=== PATIENT | male | born 1950 | race Caucasian/White ===

== ENCOUNTER 2016-09-02 16:29 | Inpatient (IN) | payer MEDICARE ==
[2016-09-02] MEDS ORDERED: DILTIAZEM 125 MG in SODIUM CHLORIDE 0.9% 100 ML IV ONE (16:59)
[2016-09-02] MEDS ORDERED: DILTIAZEM 5 MG/ML 5 ML VIAL IVP STA ×2 (16:59→18:38)
--- NOTE | 2016-09-02 17:13 | ED ---
General Adult HPI - General Chief complaint: Chest Pain Stated complaint: CHEST PAIN Time Seen by Provider: 09/02/16 16:59 Source: EMS, RN notes reviewed, old records reviewed Mode of arrival: EMS Limitations: no limitations - History of Present Illness Initial comments: This is a 66-year-old male ER for evaluation of shortness of breath, severe shortness of breath weakness and near syncope patient does have significant medical history of atrial fibrillation, CAD. Patient complains of significant shards of breath no fevers or cough no congestion. No significant chest pain at this time, just feeling weak and near syncopal - Related Data Home Medications Medication Instructions Recorded Confirmed Mometasone Inhalr 220 Mcg/Puff 1 puff INHALATION RT-BID 08/17/16 09/02/16 [Asmanex] Aspirin EC [Ecotrin Low Dose] 81 mg PO DAILY 09/02/16 09/02/16 Metoprolol Tartrate [Lopressor] 25 mg PO BID 09/02/16 09/02/16 Previous Rx's Medication Instructions Recorded Atorvastatin [Lipitor] 80 mg PO HS #30 tab 08/18/16 Clopidogrel [Plavix] 75 mg PO DAILY 30 Days 08/18/16 Nitroglycerin Sl Tabs [Nitrostat] 0.4 mg SUBLINGUAL Q5M PRN #25 tab 08/18/16 Rivaroxaban [Xarelto] 15 mg PO Q48H #15 tab 08/18/16 Allergies Allergy/AdvReac Type Severity Reaction Status Date / Time Penicillins Allergy Swelling Verified 09/02/16 16:40 Review of Systems ROS Statement: Those systems with pertinent positive or pertinent negative responses have been documented in the HPI. ROS Other: All systems not noted in ROS Statement are negative. Past Medical History Past Medical History: Atrial Fibrillation, Coronary Artery Disease (CAD), GERD/ Reflux, Hyperlipidemia, Hypertension, Osteoarthritis (OA), Sleep Apnea/CPAP/ BIPAP Additional Past Medical History / Comment(s): Thoracic aortic aneurysm 4.1 cm being monitored by Dr. Bennett, LION without device, PVCs, R leg phlebitis, past R wrist fx. Last Myocardial Infarction Date:: 08/17/16 History of Any Multi-Drug Resistant Organisms: None Reported Past Surgical History: Appendectomy Additional Past Surgical History / Comment(s): Fracture surgery,right leg vein stripping. Past Anesthesia/Blood Transfusion Reactions: No Reported Reaction Past Psychological History: No Psychological Hx Reported Additional Psychological History / Comment(s): Pt resides with spouse. He is independent. Smoking Status: Former smoker Past Alcohol Use History: Rare Additional Past Alcohol Use History / Comment(s): Pt started smoking as a teen and quit in 2005. He occasionally chews tobacco. Past Drug Use History: None Reported - Past Family History Father Family Medical History: No Reported History (Father at the age of 65 from lung condition.) Additional Family Medical History / Comment(s): in his 80's. Mother Family Medical History: No Reported History, Dementia (Mother diet in her 80's from dementia and old age.) Additional Family Medical History / Comment(s): Mother in her 80's Sister(s) Family Medical History: CVA/TIA (patient had 2 sisters one from CVA.) Daughter(s) Family Medical History: No Reported History (2 daughters no major medical problems.) Son(s) Family Medical History: No Reported History (one son no major medical problems.) General Exam Limitations: no limitations General appearance: alert, anxious, lethargic, in distress Head exam: Present: atraumatic, normocephalic, normal inspection Eye exam: Present: normal appearance, PERRL, EOMI. Absent: scleral icterus, conjunctival injection, periorbital swelling ENT exam: Present: normal exam, mucous membranes moist Neck exam: Present: normal inspection. Absent: tenderness, meningismus, lymphadenopathy Respiratory exam: Present: normal lung sounds bilaterally. Absent: respiratory distress, wheezes, rales, rhonchi, stridor Cardiovascular Exam: Present: tachycardia, irregular rhythm, normal heart sounds. Absent: systolic murmur, diastolic murmur, rubs, gallop, clicks GI/Abdominal exam: Present: soft, normal bowel sounds. Absent: distended, tenderness, guarding, rebound, rigid Extremities exam: Present: normal inspection, full ROM, normal capillary refill. Absent: tenderness, pedal edema, joint swelling, calf tenderness Back exam: Present: normal inspection Neurological exam: Present: alert, oriented X3, CN II-XII intact Psychiatric exam: Present: normal affect, normal mood Skin exam: Present: warm, dry, intact, normal color. Absent: rash Course Vital Signs 09/02/16 09/02/1609/02/17 16:38 17:36 18:31 Temperature 97.8 F Pulse Rate 154 H 123 H 105 H Respiratory 18 18 Rate Blood Pressure 121/71 114/58 O2 Sat by Pulse 93 L 96 Oximetry 09/02/16 09/02/16 09/02/16 19:07 19:22 20:06 Temperature Pulse Rate 105 H 109 H 111 H Respiratory 18 18 16 Rate Blood Pressure 124/82 110/57 127/68 O2 Sat by Pulse 97 98 98 Oximetry 09/02/16 09/02/16 09/02/16 20:28 21:07 22:52 Temperature Pulse Rate 76 62 62 Respiratory 16 16 16 Rate Blood Pressure 93/55 112/68 104/54 O2 Sat by Pulse 98 98 96 Oximetry 09/03/16 09/03/16 09/03/16 01:02 05:29 07:37 Temperature Pulse Rate 65 62 73 Respiratory 18 16 18 Rate Blood Pressure 102/50 111/56 136/64 O2 Sat by Pulse 96 95 97 Oximetry - Reevaluation(s) Reevaluation #1: 09/02/16 17:13 Patient did have good success with Cardizem push, feeling improved Reevaluation #2: 09/02/16 21:14 Patient still remains with chest pain Patient spoken with greater than 15 minutes regarding other symptoms, pending treatment plan, questions answered patient is found to have A. fib with RVR, patient placed on Cardizem with Cardizem drip, metoprolol bolus, patient did return to sinus rhythm rate of 60s. EKG Findings - EKG Comments: EKG Findings:: EKG shows A. fib with RVR rate 134, QRS 90, QTC 480 Medical Decision Making - Medical Decision Making The ER with multiple complaints, chest pain, A. fib with RVR, near syncope. Patient evaluated for EKG with no ST elevations, negative initial troponin. Patient's symptoms are just like prior heart attack and will place patient on anticoagulation. Patient also does have A. fib with RVR which is currently under rate control, patient didn't cardiovert with Cardizem and metoprolol. Patient will be admitted for cardiac evaluation and observation, monitoring of hemodynamic cardiopulmonary status - Lab Data Result diagrams: 09/02/16 16:49 09/02/16 16:49 Lab Results 09/02/16 09/02/16 09/02/16 Range/Units 16:49 16:49 16:49 WBC 7.8 (3.8-10.6) k/uL RBC 4.61 (4.30-5.90) m/uL Hgb 15.1 (13.0-17.5) gm/dL Hct 44.3 (39.0-53.0) % MCV 96.1 (80.0-100.0) fL MCH 32.8 (25.0-35.0) pg MCHC 34.1 (31.0-37.0) g/dL RDW 13.5 (11.5-15.5) % Plt Count 203 (150-450) k/uL Neutrophils % 60 % Lymphocytes % 26 % Monocytes % 6 % Eosinophils % 3 % Basophils % 1 % Neutrophils # 4.7 (1.3-7.7) k/uL Lymphocytes # 2.0 (1.0-4.8) k/uL Monocytes # 0.5 (0-1.0) k/uL Eosinophils # 0.3 (0-0.7) k/uL Basophils # 0.0 (0-0.2) k/uL PT (9.0-12.0) sec INR (<1.1) APTT (22.0-30.0) sec Sodium 144 (137-145) mmol/L Potassium 4.1 (3.5-5.1) mmol/L Chloride 108 H (98-107) mmol/L Carbon Dioxide 25 (22-30) mmol/L Anion Gap 11 mmol/L BUN 15 (9-20) mg/dL Creatinine 0.91 (0.66-1.25) mg/dL Est GFR (MDRD) Af Amer >60 (>60 ml/min/1.73 sqM) Est GFR (MDRD) Non-Af >60 (>60 ml/min/1.73 sqM) Glucose 130 H (74-99) mg/dL Calcium 8.8 (8.4-10.2) mg/dL Phosphorus 3.1 (2.5-4.5) mg/dL Magnesium 1.6 (1.6-2.3) mg/dL Total Bilirubin 1.1 (0.2-1.3) mg/dL AST 21 (17-59) U/L ALT 35 (21-72) U/L Alkaline Phosphatase 100 (38-126) U/L Total Creatine Kinase 75 (55-170) U/L CK-MB (CK-2) 0.9 (0.0-2.4) ng/mL CK-MB (CK-2) Rel Index 1.2 Troponin I <0.012 (0.000-0.034) ng/mL Total Protein 6.1 L (6.3-8.2) g/dL Albumin 3.8 (3.5-5.0) g/dL 09/02/16 Range/Units 16:49 WBC (3.8-10.6) k/uL RBC (4.30-5.90) m/uL Hgb (13.0-17.5) gm/dL Hct (39.0-53.0) % MCV (80.0-100.0) fL MCH (25.0-35.0) pg MCHC (31.0-37.0) g/dL RDW (11.5-15.5) % Plt Count (150-450) k/uL Neutrophils % % Lymphocytes % % Monocytes % % Eosinophils % % Basophils % % Neutrophils # (1.3-7.7) k/uL Lymphocytes # (1.0-4.8) k/uL Monocytes # (0-1.0) k/uL Eosinophils # (0-0.7) k/uL Basophils # (0-0.2) k/uL PT 11.3 (9.0-12.0) sec INR 1.1 (<1.1) APTT 24.5 (22.0-30.0) sec Sodium (137-145) mmol/L Potassium (3.5-5.1) mmol/L Chloride (98-107) mmol/L Carbon Dioxide (22-30) mmol/L Anion Gap mmol/L BUN (9-20) mg/dL Creatinine (0.66-1.25) mg/dL Est GFR (MDRD) Af Amer (>60 ml/min/1.73 sqM) Est GFR (MDRD) Non-Af (>60 ml/min/1.73 sqM) Glucose (74-99) mg/dL Calcium (8.4-10.2) mg/dL Phosphorus (2.5-4.5) mg/dL Magnesium (1.6-2.3) mg/dL Total Bilirubin (0.2-1.3) mg/dL AST (17-59) U/L ALT (21-72) U/L Alkaline Phosphatase (38-126) U/L Total Creatine Kinase (55-170) U/L CK-MB (CK-2) (0.0-2.4) ng/mL CK-MB (CK-2) Rel Index Troponin I (0.000-0.034) ng/mL Total Protein (6.3-8.2) g/dL Albumin (3.5-5.0) g/dL - Radiology Data Radiology results: report reviewed (Chest x-ray 2 views negative for acute disease), image reviewed Critical Care Time Critical Care Time: Yes Total Critical Care Time: 65 Disposition Clinical Impression: Atrial fibrillation with RVR, Chest pain Disposition: ADMITTED IP TO THIS [facility] Condition: Good
[2016-09-02 17:28] LABS: Basophils % (A) 1 %; CH 33.5; Eosinophils # (A) 0.3 k/uL (0-0.7); Eosinophils % (A) 3 %; HCT 44.3 % (39.0-53.0); HDW 2.98; HGB 15.1 gm/dL (13.0-17.5); Luc # (Auto) 0.33; Luc % (Auto) 4; Lymphocytes % (A) 26 %; MCH 32.8 pg (25.0-35.0); MCHC 34.1 g/dL (31.0-37.0); MCV 96.1 fL (80.0-100.0); Mean Platelet Volume 7.2; Monocytes # (A) 0.5 k/uL (0-1.0); Monocytes % (A) 6 %; Neutrophils # (A) 4.7 k/uL (1.3-7.7); Neutrophils % (A) 60 %; RBC 4.61 m/uL (4.30-5.90); RDW 13.5 % (11.5-15.5); WBC 7.8 k/uL (3.8-10.6); WBC (Perox) 7.69
[2016-09-02 17:39] LABS: ALT 35 U/L (21-72); AST 21 U/L (17-59); Alkaline Phosphatase 100 U/L (38-126); Anion Gap 11 mmol/L; Blood Urea Nitrogen 15 mg/dL (9-20); Calcium 8.8 mg/dL (8.4-10.2); Carbon Dioxide 25 mmol/L (22-30); Chloride 108 mmol/L (98-107); Glucose 130 mg/dL (74-99); Magnesium 1.6 mg/dL (1.6-2.3); Non-African American GFR(MDRD) >60 (>60 ml/min/1.73 sqM); Phosphorous 3.1 mg/dL (2.5-4.5); Potassium 4.1 mmol/L (3.5-5.1); Sodium 144 mmol/L (137-145); Total Bilirubin 1.1 mg/dL (0.2-1.3); Total Protein 6.1 g/dL (6.3-8.2)
[2016-09-02 17:47] LABS: Creatine Kinase 75 U/L (55-170)
[2016-09-02 17:49] LABS: INR 1.1 (<1.1); Partial Thromboplastin Time 24.5 sec (22.0-30.0); Prothrombin Time 11.3 sec (9.0-12.0)
--- NOTE | 2016-09-02 17:54 | XR ---
EXAMINATION TYPE: XR chest 1V portable DATE OF EXAM: 09/02/2016 5:40 PM COMPARISON: 02/08/2011 HISTORY: Chest pain TECHNIQUE: Single frontal view of the chest is obtained. FINDINGS: There is no heart failure nor confluent pneumonic infiltrate. There are no hilar masses. C ostophrenic angles are clear. There are chest leads. Heart size is normal. IMPRESSION: No active cardiopulmonary disease. No change.
[2016-09-02 18:01] LABS: Creatine Kinase MB 0.9 ng/mL (0.0-2.4); Troponin I <0.012 ng/mL (0.000-0.034)
[2016-09-02] MEDS ORDERED: METOPROLOL TARTRATE 5 MG/5 ML VIAL IVP STA (19:23)
[2016-09-02] MEDS ORDERED: NITROGLYCERIN SL TABS 0.4 MG TAB SUBLINGUAL PRN (20:19)
[2016-09-03 00:10] LABS: Troponin I 0.056 ng/mL (0.000-0.034)
[2016-09-03 05:39] LABS: Cholesterol 93 mg/dL (<200); HDL Cholesterol 35 mg/dL (40-60); Triglycerides 73 mg/dL (<150)
[2016-09-03 06:10] LABS: Creatine Kinase MB 0.8 ng/mL (0.0-2.4)
[2016-09-03 06:15] LABS: Troponin I 0.049 ng/mL (0.000-0.034)
[2016-09-03] MEDS ORDERED: ASPIRIN 325 MG TAB PO SCH (09:00)
[2016-09-03] MEDS ORDERED: NITROGLYCERIN SL TABS 0.4 MG TAB SUBLINGUAL PRN ×2 (09:16→14:31)
--- NOTE | 2016-09-03 11:39 | ECHOF ---
Referral Reason:LVF MEASUREMENTS -------- HEIGHT: 182.9 cm WEIGHT: 127.0 kg BP: 140/50 RVIDd: 2.8 cm (< 3.3) IVSd: 1.5 cm (0.6 - 1.1) LVIDd: 5.0 cm (3.9 - 5.3) LVPWd: 1.4 cm (0.6 - 1.1) IVSs: 1.5 cm LVIDs: 3.9 cm LVPWs: 1.4 cm LAESV Index (A-L): 24.62 ml/m Ao Diam: 3.8 cm (2.0 - 3.7) AV Cusp: 2.3 cm (1.5 - 2.6) LA Diam: 3.9 cm (2.7 - 3.8) MV EXCURSION: 17.722 mm (> 18.000) MV EF SLOPE: 87 mm/s (70 - 150) EPSS: 0.8 cm MV E Jerry: 0.72 m/s MV DecT: 152 ms MV A Jerry: 0.49 m/s MV E/A Ratio: 1.48 RAP: 5.00 mmHg RVSP: 21.86 mmHg FINDINGS -------- Sinus rhythm. This was a technically adequate study. Morbid Obesity There is moderate concentric left ventricular hypertrophy. Overall left ventricular systolic function is low-normal with, an EF between 50 - 55 %. Basal inferior LV wall motion is hypokinetic. The right ventricle is normal in size. Normal LA size by volume 22+/-6 ml/m2. The right atrial size is normal. There is mild aortic valve sclerosis. There is no evidence of aortic regurgitation. Mild mitral annular calcification present. Mild mitral regurgitation is present. Mild tricuspid regurgitation present. There is no evidence of pulmonary hypertension. The right ventricular systolic pressure, as measured by Doppler, is 21.86mmHg. There is no pulmonic regurgitation present. The aortic root size is normal. Echo free space may represent effusion or a pericardial fat pad. CONCLUSIONS -------- 1. There is moderate concentric left ventricular hypertrophy. 2. There is no pulmonic regurgitation present. 3. The aortic root size is normal. 4. Echo free space may represent effusion or a pericardial fat pad. 5. Overall left ventricular systolic function is low-normal with, an EF between 50 - 55 %. 6. Basal inferior LV wall motion is hypokinetic. 7. There is mild aortic valve sclerosis. 8. Mild mitral annular calcification present. 9. Mild mitral regurgitation is present. 10. Mild tricuspid regurgitation present. 11. There is no evidence of pulmonary hypertension. 12. The right ventricular systolic pressure, as measured by Doppler, is 21.86mmHg. [employer]: Melanie Layne RDCS
--- NOTE | 2016-09-03 12:29 | P.CRDCN ---
History of Present Illness Consult date: 09/03/16 Chief complaint: Recurrent chest discomfort History of present illness: This is a pleasant 66-year-old gentleman who sees Dr. Moss as an outpatient with a past medical history significant for coronary artery disease who underwent recently stenting of the RCA and at that point he was found to have severe disease involving the mid left circumflex, hypertension, and dyslipidemia , as well as paroxysmal atrial fibrillation, presented to the hospital complaining of chest discomfort. In July 2016 he was admitted to [facility] with chest discomfort and was diagnosed with acute non-ST elevation myocardial infarction. He was brought to [facility] and underwent a heart catheterization and was found to have critical disease involving the mid RCA which was opened and stented but the case was complicated by dissection involving the ostial RCA which was also stented with a final good angiographic results. At the same time he was found to have severe disease involving the mid left circumflex. He was in his usual state of health until earlier today when he was sitting on the kitchen table and started experiencing chest discomfort, in the mid of the chest, with radiation to the jaw and to the neck. The discomfort improved after 3 nitroglycerin sublingual. The EKG showed sinus rhythm without any significant ST or T-wave abnormalities but the patient went into an A. fib in the beginning and then he was converted into normal sinus mechanism. The cardiac enzymes came in to be slightly abnormal. I recommended proceeding with a heart catheterization and I will speak with Dr. Moss regarding that. Past Medical History Past Medical History: Atrial Fibrillation, Coronary Artery Disease (CAD), GERD/ Reflux, Hyperlipidemia, Hypertension, Osteoarthritis (OA), Sleep Apnea/CPAP/ BIPAP Additional Past Medical History / Comment(s): Thoracic aortic aneurysm 4.1 cm being monitored by Dr. Bennett, LION without device, PVCs, R leg phlebitis, past R wrist fx. Last Myocardial Infarction Date:: 08/17/16 History of Any Multi-Drug Resistant Organisms: None Reported Past Surgical History: Appendectomy Additional Past Surgical History / Comment(s): Fracture surgery,right leg vein stripping. Past Anesthesia/Blood Transfusion Reactions: No Reported Reaction Date of Last Stent Placement:: 08/17/16 Past Psychological History: No Psychological Hx Reported Additional Psychological History / Comment(s): Pt resides with spouse. He is independent. Smoking Status: Former smoker Past Alcohol Use History: Rare Additional Past Alcohol Use History / Comment(s): Pt started smoking as a teen and quit in 2005. He occasionally chews tobacco. Past Drug Use History: None Reported - Past Family History Father Family Medical History: No Reported History (Father at the age of 65 from lung condition.) Additional Family Medical History / Comment(s): in his 80's. Mother Family Medical History: No Reported History, Dementia (Mother diet in her 80's from dementia and old age.) Additional Family Medical History / Comment(s): Mother in her 80's Sister(s) Family Medical History: CVA/TIA (patient had 2 sisters one from CVA.) Daughter(s) Family Medical History: No Reported History (2 daughters no major medical problems.) Son(s) Family Medical History: No Reported History (one son no major medical problems.) Medications and Allergies Home Medications Medication Instructions Recorded Confirmed Type Mometasone Inhalr 220 Mcg/Puff 1 puff INHALATION RT-BID 08/17/16 09/02/16 History [Asmanex] Aspirin EC [Ecotrin Low Dose] 81 mg PO DAILY 09/02/16 09/02/16 History Metoprolol Tartrate [Lopressor] 25 mg PO BID 09/02/16 09/02/16 History Allergies Allergy/AdvReac Type Severity Reaction Status Date / Time Penicillins Allergy Swelling Verified 09/02/16 16:40 Physical Exam Vitals: Vital Signs Pulse Resp BP Pulse Ox 09/03/16 07:37 73 18 136/64 97 09/03/16 05:29 62 16 111/56 95 09/03/16 01:02 65 18 102/50 96 09/02/16 22:52 62 16 104/54 96 09/02/16 21:07 62 16 112/68 98 09/02/16 20:28 76 16 93/55 98 Intake and Output 09/02/16 09/03/16 09/03/16 22:59 06:59 14:59 Intake Total 37.042 Balance 37.042 Intake: Intake, IV Titration 37.042 Amount Diltiazem 125 mg In 37.042 Sodium Chloride 0.9% 100 ml @ 5 MG/HR 5 mls/hr IV .Q24H ONE Rx#:[id number] - Constitutional General appearance: no acute distress - Respiratory Respiratory: bilateral: CTA - Cardiovascular Rhythm: regular Heart sounds: normal: S1, S2 Results 09/02/16 16:49 09/02/16 16:49 Cardiac Enzymes 09/02/16 09/03/16 Range/Units 23:15 05:20 CK-MB (CK-2) 1.0 0.8 (0.0-2.4) ng/mL Troponin I 0.056 H* 0.049 H* (0.000-0.034) ng/mL Lipids 09/03/16 Range/Units 05:20 Triglycerides 73 (<150) mg/dL Cholesterol 93 (<200) mg/dL HDL Cholesterol 35 L (40-60) mg/dL Current Medications Generic Name Dose Route Start Last Admin Trade Name Freq PRN Reason Stop Dose Admin Aspirin 81 mg 09/04/16 09:[address] [facility] Atorvastatin Calcium 80 mg 09/03/16 21:[address] [facility] Budesonide 1 mg 09/03/16 20:00 Pulmicort INHALATION RT-BID [facility] Clopidogrel Bisulfate 75 mg 09/04/16 09:[address] [facility] Diltiazem HCl 125 mg/ Sodium 125 mls @ 5 mls/hr 09/02/16 16:59 09/02/16 21:07 Chloride IV 09/03/16 16:58 0 mg/hr .Q24H ONE 0 mls/hr 5 MG/HR Infusion Metoprolol Tartrate 25 mg 09/03/16 21:[address] [facility] Nitroglycerin 0.4 mg 09/03/16 09:16 Nitrostat SUBLINGUAL Q5M PRN Chest Pain Rivaroxaban 15 mg 09/03/16 17:[address] [facility] Intake and Output 09/02/16 09/03/16 09/03/16 22:59 06:59 14:59 Intake Total 37.042 Balance 37.042 Intake: Intake, IV Titration 37.042 Amount Diltiazem 125 mg In 37.042 Sodium Chloride 0.9% 100 ml @ 5 MG/HR 5 mls/hr IV .Q24H ONE Rx#:[id number] Assessment and Plan Plan: Assessment #1 acute non-STEMI #2 known CAD as described above #3 paroxysmal A. fib Plan #1 I recommended proceeding with heart catheterization #2 I would increase the dose of metoprolol for better heart rate control #3 follow-up with the patient
--- NOTE | 2016-09-03 13:02 | P.HPIM ---
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 He recently presented to [facility] with increased chest pain and found to have elevated troponin and diagnosed with a non-ST elevated myocardial infarction and atrial fibrillation with RVR. Patient was transferred to [facility] emergency center where he underwent heart catheterization finding totally occluded RCA and significant disease in the left circumflex. He had a stent placement in the RCA and plan to return later for left circumflex. Patient was discharged home and he has been doing fine until yesterday when he developed chest pain with pain in his jaw and numbness in his jaw. He also had lightheadedness and dizziness. He states onset was when he was getting Mrs. Winston chicken soup. He denies any nausea or vomiting. He took 3 nitroglycerin sublingually with improvement. He came into [facility] emergency center for evaluation. Chest x- ray showed no acute process. EKG was atrial fibrillation and subsequently converted to normal sinus rhythm. Troponins were 0.012, 0.056, 0.049. Triglycerides 73, cholesterol 93, LDL 43, HDL 35. Repeat echocardiogram reveals moderate concentric left ventricular hypertrophy, EF 50-55%, mild mitral regurgitation, mild tricuspid regurgitation. Patient is to be admitted to the selective care unit. Plan is for heart catheterization, repeat echocardiogram. Review of Systems All systems: negative Constitutional: Denies chills, Denies fever Eyes: denies blurred vision, denies pain Ears, nose, mouth and throat: Reports vertigo, Denies headache, Denies sore throat Cardiovascular: Reports chest pain, Reports lightheadedness, Denies shortness of breath Respiratory: Denies cough, Denies cough with sputum, Denies excessive sputum, Denies hemoptysis Gastrointestinal: Denies abdominal pain, Denies diarrhea, Denies nausea, Denies vomiting Musculoskeletal: Denies myalgias Integumentary: Denies pruritus, Denies rash Neurological: Denies numbness, Denies weakness Psychiatric: Denies anxiety, Denies depression Endocrine: Denies fatigue, Denies weight change Past Medical History Past Medical History: Atrial Fibrillation, Coronary Artery Disease (CAD), GERD/ Reflux, Hyperlipidemia, Hypertension, Osteoarthritis (OA), Sleep Apnea/CPAP/ BIPAP Additional Past Medical History / Comment(s): Thoracic aortic aneurysm 4.1 cm being monitored by Dr. Bennett, LION without device, PVCs, R leg phlebitis, past R wrist fx. Last Myocardial Infarction Date:: 08/17/16 History of Any Multi-Drug Resistant Organisms: None Reported Past Surgical History: Appendectomy Additional Past Surgical History / Comment(s): Fracture surgery,right leg vein stripping. Past Anesthesia/Blood Transfusion Reactions: No Reported Reaction Past Psychological History: No Psychological Hx Reported Additional Psychological History / Comment(s): Pt resides with spouse. He is independent. Smoking Status: Former smoker Past Alcohol Use History: Rare Additional Past Alcohol Use History / Comment(s): Pt started smoking as a teen and quit in 2005. He occasionally chews tobacco. Past Drug Use History: None Reported - Past Family History Father Family Medical History: No Reported History (Father at the age of 65 from lung condition.) Additional Family Medical History / Comment(s): in his 80's. Mother Family Medical History: No Reported History, Dementia (Mother diet in her 80's from dementia and old age.) Additional Family Medical History / Comment(s): Mother in her 80's Sister(s) Family Medical History: CVA/TIA (patient had 2 sisters one from CVA.) Daughter(s) Family Medical History: No Reported History (2 daughters no major medical problems.) Son(s) Family Medical History: No Reported History (one son no major medical problems.) Medications and Allergies Home Medications Medication Instructions Recorded Confirmed Type Mometasone Inhalr 220 Mcg/Puff 1 puff INHALATION RT-BID 08/17/16 09/02/16 History [Asmanex] Aspirin EC [Ecotrin Low Dose] 81 mg PO DAILY 09/02/16 09/02/16 History Metoprolol Tartrate [Lopressor] 25 mg PO BID 09/02/16 09/02/16 History Allergies Allergy/AdvReac Type Severity Reaction Status Date / Time Penicillins Allergy Swelling Verified 09/02/16 16:40 Physical Exam Vitals: Vital Signs Pulse Resp BP Pulse Ox 09/03/16 07:37 73 18 136/64 97 09/03/16 05:29 62 16 111/56 95 09/03/16 01:02 65 18 102/50 96 09/02/16 22:52 62 16 104/54 96 09/02/16 21:07 62 16 112/68 98 09/02/16 20:28 76 16 93/55 98 Intake and Output 09/02/16 09/03/16 09/03/16 22:59 06:59 14:59 Intake Total 37.042 Balance 37.042 Intake: Intake, IV Titration 37.042 Amount Diltiazem 125 mg In 37.042 Sodium Chloride 0.9% 100 ml @ 5 MG/HR 5 mls/hr IV .Q24H ONE Rx#:[id number] General appearance: no acute distress, obese - EENT Eyes: anicteric sclerae, PERRLA, no ptosis, no scleral icterus, normal apperance ENT: hearing grossly normal, normal oropharynx, no thrush, no tonsillar exudates Ears: bilateral: normal - Neck Neck: no lymphadenopathy, normal ROM, no rigidity, no stridor, no thyromegaly Carotids: bilateral: upstroke normal Thyroid: bilateral: normal size - Respiratory Respiratory: bilateral: diminished, negative: dullness, rales, rhonchi, wheezing , prolonged expiration, prolonged inspiration - Cardiovascular Rhythm: irregularly irregular Heart sounds: normal: S1, S2 Abnormal Heart Sounds: systolic murmur - Gastrointestinal General gastrointestinal: normal bowel sounds, soft, no splenomegaly, no tenderness, no umbilical hernia, no ventral hernia - Integumentary Integumentary: normal, normal turgor - Neurologic Neurologic: CNII-XII intact - Musculoskeletal Musculoskeletal: generalized weakness - Psychiatric Psychiatric: A&O x's 3, appropriate affect, intact judgment & insight Results CBC & Chem 7: 09/02/16 16:49 09/05/16 05:48 Labs: Abnormal Lab Results - Last 24 Hours (Table) 09/02/16 09/03/16 09/03/16 Range/Units 23:15 05:20 05:20 Troponin I 0.056 H* 0.049 H* (0.000-0.034) ng/mL HDL Cholesterol 35 L (40-60) mg/dL Thrombosis Risk Factor Assmnt - DVT/VTE Prophylaxis DVT/VTE Prophylaxis: Pharmacologic Prophylaxis ordered Assessment and Plan Plan: 1. Acute non-ST elevation CT post left heart catheterization and PCI of the RCA recently done in July. Continue aspirin 81 mg orally once every day, Plavix 75 mg orally once every day, metoprolol 50 mg orally twice every day ( increased), Lipitor 80 mg orally once every day. Echocardiogram and repeat heart catheterization. 2. Paroxysmal atrial fibrillation presenting with rapid ventricular response. Off Cardizem drip. Continue patient on metoprolol at increased dose of 50 mg orally twice every day, patient has been on Xarelto. 3. Hypertension and hypertensive cardiovascular disease. Continue patient on metoprolol 25 mg orally twice every day. 4. Hyperlipidemia. Low-cholesterol diet will continue Lipitor 80 mg orally once every day. 5. Obesity with LION. will continue with CPAP. 6. Abdominal Aortic Aneurysm.under surveillance watch by . 7. Tobacco use and dependence in the form of chewing tobacco.abstinence from nicotine is in order. 8. DVT prophylaxis.on Xarelto. 9. GI prophylaxis .will continue with protonix 40 mg orally once a day. 10. Admit as inpatient.estimated length of stay 2 midnights. 11. Full code. Impression and plan of care have been directed as dictated by the signing physician. Joy Baxter nurse practitioner acting as scribe for signing physician. Cc: Dr. Laron Holland Time with Patient: Greater than 30
[2016-09-03] MEDS ORDERED: ALPRAZolam 0.5 MG TAB PO PRN (14:31)
[2016-09-03] MEDS ORDERED: SODIUM CHLORIDE 0.9% 1,000 ML in EMPTY BAG 1 BAG IV ONE (14:31)
[2016-09-03] MEDS ORDERED: ALPRAZolam 0.25 MG TAB PO PRN (14:31)
[2016-09-03] MEDS ORDERED: ASPIRIN 325 MG TAB PO STA (14:31)
[2016-09-03] MEDS ORDERED: ATORVASTATIN 80 MG TAB PO STA (14:31)
[2016-09-03] MEDS ORDERED: RIVAROXABAN 15 MG TAB PO SCH (17:30)
[2016-09-03] MEDS: METOPROLOL TARTRATE 50 MG TAB PO SCH (20:12)
[2016-09-03] MEDS: BUDESONIDE 1 MG/2 ML NEBU INHALATION SCH (20:57)
[2016-09-03] MEDS ORDERED: METOPROLOL TARTRATE 25 MG TAB PO SCH (21:00)
[2016-09-04] MEDS: METOPROLOL TARTRATE 50 MG TAB PO SCH ×2 (06:20→20:31)
[2016-09-04] MEDS: ASPIRIN 81 MG CHEW PO SCH (06:20)
[2016-09-04] MEDS: CLOPIDOGREL 75 MG TAB PO SCH (06:20)
[2016-09-04] MEDS ORDERED: IV FLUID CONTINUATION 500 ML IV ONE (06:55)
[2016-09-04] MEDS ORDERED: LIDOCAINE 2% INJ 20 MG/ML (20 ML MDV) ONE (07:09)
[2016-09-04] MEDS ORDERED: diphenhydrAMINE 50 MG/ML 1 ML VIAL IVP ONE (07:10)
[2016-09-04] MEDS ORDERED: MIDAZOLAM 2 MG/2 ML VIAL ONE (07:10)
[2016-09-04] MEDS ORDERED: diphenhydrAMINE 50 MG/ML 1 ML VIAL ONE (07:10)
[2016-09-04] MEDS ORDERED: MIDAZOLAM 2 MG/2 ML VIAL IV ONE (07:12)
[2016-09-04] MEDS ORDERED: LIDOCAINE 2% INJ 20 MG/ML SQ ONE (07:18)
[2016-09-04] MEDS ORDERED: fentaNYL (PF) 50 MCG/ML 2 ML AMP IV ONE (07:18)
[2016-09-04] MEDS ORDERED: fentaNYL (PF) 50 MCG/ML 2 ML AMP ONE (07:20)
[2016-09-04] MEDS ORDERED: BIVALIRUDIN BOLUS 250 MG/50 ML IV ONE (08:11)
[2016-09-04] MEDS ORDERED: BIVALIRUDIN 250 MG in SODIUM CHLORIDE 0.9% 50 ML IV ONE (08:12)
[2016-09-04] MEDS ORDERED: CLOPIDOGREL 75 MG TAB ONE (08:17)
[2016-09-04] MEDS ORDERED: CLOPIDOGREL 75 MG TAB PO ONE (08:25)
[2016-09-04] MEDS ORDERED: RX INFO: IV CONTRAST WAS GIVEN 1 EACH MISC MISCELLANE PRN (08:26)
[2016-09-04] MEDS ORDERED: NITROGLYCERIN SL TABS 0.4 MG TAB SUBLINGUAL PRN (08:26)
[2016-09-04] MEDS ORDERED: MAG HYDROX/AL HYDROX/SIMETH 30 ML CUP PO PRN (08:26)
[2016-09-04] MEDS ORDERED: ZOLPIDEM 5 MG TAB PO PRN (08:26)
[2016-09-04] MEDS ORDERED: SODIUM CHLORIDE 0.9% 1,000 ML IV SCH (08:30)
--- NOTE | 2016-09-04 08:30 | CC ---
DATE OF SERVICE: INDICATION: Non-ST segment elevation myocardial infarction. Laron is a 66-year-old gentleman who was recently admitted to hospital with non-ST segment elevation KS, underwent cardiac catheterization and complex angioplasty of right coronary artery. He came to [facility] yesterday complaining of precordial chest pain and had mild troponin elevation. Due to this, patient was advised to undergo cardiac catheterization. He had been explained of risks, benefits, and alternatives, understood and accepted. PROCEDURE NOTE: After obtaining informed consent, left heart catheterization and coronary angiogram are performed via the right femoral artery using standard Rita catheters. Patient tolerated the procedure well without any obvious immediate complications. FINDINGS: 1. HEMODYNAMICS: Left ventricular end-diastolic pressure is 14 to 16 mm. There is no significant gradient across the aortic valve. 2. LEFT VENTRICULOGRAM: Left ventriculogram was not performed. 3. ANGIOGRAPHIC DATA: Left main coronary artery: Left main coronary artery appears calcified but is free of significant stenosis. It divides into left anterior descending coronary artery and circumflex coronary artery. LAD shows mild nonobstructive coronary artery disease. Circumflex coronary artery shows a 70% stenosis in its midportion. The right coronary artery appears patent in the previously stented segment in the proximal part. The PLV branch has mild to moderate plaque, which appears unchanged compared to the previous cardiac cath. IMPRESSION: Patent stent within the right coronary artery, 70% stenosis involving circumflex coronary artery. PLAN: Patient will undergo angioplasty of the circumflex coronary artery by Dr. Patel.
[2016-09-04] MEDS ORDERED: IOHEXOL 350 MG/ML 100 ML BOTTLE INJ ONE (08:33)
--- NOTE | 2016-09-04 08:52 | PTCA ---
DATE OF SERVICE: 09/04/2016 PERFORMING PHYSICIAN: Harry Patel MD, Aircraft Maintenance Technician. PROCEDURE PERFORMED: Successful stenting of the mid left circumflex using 2.75 x 15 mm vision BMS with good angiographic results. INDICATION: This is a pleasant 66-year-old gentleman who is known to have CAD and prior LAD stenting who presented to the hospital complaining of chest discomfort consistent with angina. He underwent a heart catheterization and stenting of the RCA recently and was found to have severe disease involving the left circumflex. The initial plan was to bring him back and do the left circumflex stenting but he presented to the hospital with chest discomfort. APPROACH: Right common femoral artery. COMPLICATION: None. LEVEL OF SEDATION: Moderate. PROCEDURE DESCRIPTION: Please refer to diagnostic heart catheterization was performed by Dr. Moss earlier today. Anticoagulation was initiated using Angiomax. Subsequently, I took an XB35 guide and the left main was engaged. A whisper wire was used to wire the left circumflex. Subsequently, I did direct stenting on the lesion of the left circumflex using 2.75 x 15 mm Vision BMS where the stent was positioned under fluoroscopy guidance and deployed under its nominal pressure which was 10 atmospheres for 30 seconds. The following angiogram showed a good angiographic result without perforation and without dissection with excellent flow. The procedure was completed without any complication. CONCLUSION: Successful stenting of the mid left circumflex with reduction of stenosis from 70% to 0. POSTPROCEDURE MANAGEMENT: 1. Dual antiplatelet therapy. 2. Risk factor modification. 3. Follow up with the patient.
[2016-09-04] MEDS: BUDESONIDE 1 MG/2 ML NEBU INHALATION SCH ×2 (11:00→20:27)
--- NOTE | 2016-09-04 14:08 | P.PN ---
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 He recently presented to [facility] with increased chest pain and found to have elevated troponin and diagnosed with a non-ST elevated myocardial infarction and atrial fibrillation with RVR. Patient was transferred to [facility] emergency center where he underwent heart catheterization finding totally occluded RCA and significant disease in the left circumflex. He had a stent placement in the RCA and plan to return later for left circumflex. Patient was discharged home and he has been doing fine until yesterday when he developed chest pain with pain in his jaw and numbness in his jaw. He also had lightheadedness and dizziness. He states onset was when he was getting Mrs. Winston chicken soup. He denies any nausea or vomiting. He took 3 nitroglycerin sublingually with improvement. He came into [facility] emergency center for evaluation. Chest x- ray showed no acute process. EKG was atrial fibrillation and subsequently converted to normal sinus rhythm. Troponins were 0.012, 0.056, 0.049. Triglycerides 73, cholesterol 93, LDL 43, HDL 35. Repeat echocardiogram reveals moderate concentric left ventricular hypertrophy, EF 50-55%, mild mitral regurgitation, mild tricuspid regurgitation. Patient is to be admitted to the selective care unit. Plan is for heart catheterization, repeat echocardiogram. 09/04: Patient underwent heart catheterization that revealed patent stent in the right coronary artery, 70% stenosis of the circumflex coronary artery and patient is status post angioplasty and stenting of the mid left circumflex. Echocardiogram reveals moderate concentric left ventricular hypertrophy, EF 50- 55%, mild aortic valve sclerosis, mild mitral regurgitation, mild tricuspid regurgitation. He complains of a little shortness of breath with pulse ox is 98 % on 2 L. Objective - Vital Signs Vital signs: Vital Signs Temp 97.0 F L 09/04/16 04:00 Pulse 54 L 09/04/16 11:31 Resp 20 09/04/16 11:31 BP 127/60 09/04/16 11:31 Pulse Ox 94 L 09/04/16 04:00 Intake & Output 09/03/16 09/04/16 09/04/16 18:59 06:59 18:59 Intake Total 989 38.3 Output Total 900 300 Balance -900 989 -261.7 Weight 126.9 kg Intake: IV 989 38.3 Sodium Chloride 0.9% 1, 889 000 ml In Empty Bag 1 bag @ 1 ML/KG/HR 127 mls/hr IV .Q7H53M ONE Rx#: [id number] Output: Urine 900 300 Other: Voiding Method Toilet - Exam General appearance: no acute distress, obese - EENT Eyes: anicteric sclerae, PERRLA, no ptosis, no scleral icterus, normal apperance ENT: hearing grossly normal, normal oropharynx, no thrush, no tonsillar exudates Ears: bilateral: normal - Neck Neck: no lymphadenopathy, normal ROM, no rigidity, no stridor, no thyromegaly Carotids: bilateral: upstroke normal Thyroid: bilateral: normal size - Respiratory Respiratory: bilateral: diminished, negative: dullness, rales, rhonchi, wheezing , prolonged expiration, prolonged inspiration - Cardiovascular Rhythm: irregularly irregular Heart sounds: normal: S1, S2 Abnormal Heart Sounds: systolic murmur - Gastrointestinal General gastrointestinal: normal bowel sounds, soft, no splenomegaly, no tenderness, no umbilical hernia, no ventral hernia - Integumentary Integumentary: normal, normal turgor - Neurologic Neurologic: CNII-XII intact - Musculoskeletal Musculoskeletal: generalized weakness - Psychiatric Psychiatric: A&O x's 3, appropriate affect, intact judgment & insight - Labs CBC & Chem 7: 09/02/16 16:49 09/02/16 16:49 Assessment and Plan Plan: 1. New acute non-ST elevation [facility] post left heart catheterization and PCI of the RCA recently done in July. Continue aspirin 81 mg orally once every day , Plavix 75 mg orally once every day, metoprolol 50 mg orally twice every day ( increased), Lipitor 80 mg orally once every day. Echocardiogram as above. Status post heart catheterization and stent placement 2. Paroxysmal atrial fibrillation presenting with rapid ventricular response. Off Cardizem drip. Continue patient on metoprolol at increased dose of 50 mg orally twice every day, patient has been on Xarelto. 3. Hypertension and hypertensive cardiovascular disease. Continue patient on metoprolol 25 mg orally twice every day. 4. Hyperlipidemia. Low-cholesterol diet will continue Lipitor 80 mg orally once every day. 5. Obesity with LION. will continue with CPAP. 6. Abdominal Aortic Aneurysm.under surveillance watch by . 7. Tobacco use and dependence in the form of chewing tobacco.abstinence from nicotine is in order. 8. DVT prophylaxis.on Xarelto. 9. GI prophylaxis .will continue with protonix 40 mg orally once a day. 10. Admit as inpatient.estimated length of stay 2 midnights. 11. Full code. Impression and plan of care have been directed as dictated by the signing physician. Joy Baxter nurse practitioner acting as scribe for signing physician. Time with Patient: Greater than 30
[2016-09-04] MEDS ORDERED: ATORVASTATIN 80 MG TAB PO SCH (21:00)
[2016-09-05 05:32] VITALS: TEMP 97.3
[2016-09-05 06:55] LABS: Anion Gap 12 mmol/L; Blood Urea Nitrogen 11 mg/dL (9-20); Calcium 9.3 mg/dL (8.4-10.2); Carbon Dioxide 23 mmol/L (22-30); Chloride 107 mmol/L (98-107); Glucose 125 mg/dL (74-99); Non-African American GFR(MDRD) >60 (>60 ml/min/1.73 sqM); Potassium 4.6 mmol/L (3.5-5.1); Sodium 142 mmol/L (137-145)
[2016-09-05] MEDS: BUDESONIDE 1 MG/2 ML NEBU INHALATION SCH (08:39)
[2016-09-05 08:45] VITALS: BP 121/89; RESP 16
[2016-09-05 08:57] VITALS: PULSE 65
[2016-09-05] MEDS: ASPIRIN 81 MG CHEW PO SCH (09:44)
[2016-09-05] MEDS: CLOPIDOGREL 75 MG TAB PO SCH (09:45)
--- NOTE | 2016-09-05 11:35 | P.PN ---
Subjective This is a pleasant 66-year-old gentleman who sees Dr. Moss as an outpatient with a past medical history significant for coronary artery disease who underwent recently stenting of the RCA and at that point he was found to have severe disease involving the mid left circumflex, hypertension, and dyslipidemia , as well as paroxysmal atrial fibrillation, presented to the hospital complaining of chest discomfort. He was taken to the cardiac catheterization lab yesterday by Dr. Moss where he underwent a cardiac catheterization, subsequent to that he underwent angioplasty with stent placement of the circumflex by Dr. Franco. Patient was seen and examined this morning, denies any chest pain or difficulty in breathing, he's been up ambulating in the kramer without any difficulty. EKG shows atrial fibrillation with a controlled ventricular response, no changes from post-PCI. BUN 11, creatinine 0.8. I Objective - Vital Signs Vital signs: Vital Signs Temp 97.3 F L 09/05/16 08:00 Pulse 56 L 09/05/16 08:46 Resp 16 09/05/16 08:00 BP 121/89 09/05/16 08:00 Pulse Ox 94 L 09/05/16 08:00 Intake & Output 09/04/16 09/05/16 09/05/16 18:59 06:59 18:59 Intake Total 158.3 800 180 Output Total 1050 900 Balance -891.7 -100 180 Weight 126.1 kg Intake: IV 38.3 Intake, IV Titration 800 Amount Sodium Chloride 0.9% 1, 800 000 ml @ 100 mls/hr IV . Q10H OJE Rx#:[id number] Oral 120 180 Output: Urine 1050 900 Other: Voiding Method Urinal Urinal Urinal # Voids 1 # Bowel Movements 0 - Exam PHYSICAL EXAMINATION: HEENT: Head is atraumatic, normocephalic. Pupils equal, round. Neck is supple. There is no elevated jugular venous pressure. HEART EXAMINATION: Heart S1 and S2 irregular irregular a systolic murmur is heard. CHEST EXAMINATION: Lungs are clear to auscultation and precussion. No chest wall tenderness is noted on palpation or with deep breathing. ABDOMEN: Soft, nontender. Bowel sounds are heard. No organomegaly noted. Right groin soft, no evidence of any hematoma. EXTREMITIES: 2+ peripheral pulses with no evidence of peripheral edema and no calf tenderness noted. NEUROLOGIC patient is awake, alert and oriented -3. . - Labs CBC & Chem 7: 09/02/16 16:49 09/05/16 05:48 Labs: Abnormal Lab Results - Last 24 Hours (Table) 09/05/16 Range/Units 05:48 Glucose 125 H (74-99) mg/dL Assessment and Plan (1) Non-Q wave infarction Status: Acute (2) Presence of stent in left circumflex coronary artery Status: Acute (3) Chronic a-fib Status: Acute (4) S/P right coronary artery (RCA) stent placement Status: Acute (5) HTN (hypertension) Status: Acute (6) Hyperlipemia Status: Acute (7) Sleep apnea Status: Acute (8) Atrial fibrillation with RVR Status: Acute Plan: From cardiology's perspective, patient should be able to be discharged home today. He will have a follow-up appointment with Dr. Guy in the office in one week. Patient will be discharged home on aspirin 81 mg daily, Lipitor 80 mg daily, Plavix 75 mg daily, metoprolol tartrate 50 mg one tablet by mouth twice a day, Xarelto 20 mg daily, and sublingual nitroglycerin as needed for chest pain. Patient has been educated regarding his medications and he has been provided prescriptions for all of his new medications. DNP note has been reviewed, I agree with a documented findings and plan of care. Patient was seen and examined.
--- NOTE | 2016-09-05 12:41 | P.DS ---
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 He recently presented to [facility] with increased chest pain and found to have elevated troponin and diagnosed with a non-ST elevated myocardial infarction and atrial fibrillation with RVR. Patient was transferred to [facility] emergency center where he underwent heart catheterization finding totally occluded RCA and significant disease in the left circumflex. He had a stent placement in the RCA and plan to return later for left circumflex. Patient was discharged home and he has been doing fine until yesterday when he developed chest pain with pain in his jaw and numbness in his jaw. He also had lightheadedness and dizziness. He states onset was when he was getting Mrs. Winston chicken soup. He denies any nausea or vomiting. He took 3 nitroglycerin sublingually with improvement. He came into [facility] emergency center for evaluation. Chest x- ray showed no acute process. EKG was atrial fibrillation and subsequently converted to normal sinus rhythm. Troponins were 0.012, 0.056, 0.049. Triglycerides 73, cholesterol 93, LDL 43, HDL 35. Repeat echocardiogram reveals moderate concentric left ventricular hypertrophy, EF 50-55%, mild mitral regurgitation, mild tricuspid regurgitation. Patient is to be admitted to the selective care unit. Plan is for heart catheterization, repeat echocardiogram. 09/04: Patient underwent heart catheterization that revealed patent stent in the right coronary artery, 70% stenosis of the circumflex coronary artery and patient is status post angioplasty and stenting of the mid left circumflex. Echocardiogram reveals moderate concentric left ventricular hypertrophy, EF 50- 55%, mild aortic valve sclerosis, mild mitral regurgitation, mild tricuspid regurgitation. He complains of a little shortness of breath with pulse ox is 98 % on 2 L. 09/05: Patient denies having any chest pain or shortness of breath. He has been up and ambulating. Cardiac monitors atrial fibrillation and a controlled rate. BUN 11 and creatinine 0.8. Patient has been cleared by cardiology for discharge and they are addressing home medications. Patient will be discharged home today in stable condition. Discharge Diagnoses: 1. New acute non-ST elevation [place] post left heart catheterization and PCI of the RCA recently done in July. 2. Paroxysmal atrial fibrillation presenting with rapid ventricular response. 3. Hypertension and hypertensive cardiovascular disease. 4. Hyperlipidemia. 5. Obesity with LION. 6. Abdominal Aortic Aneurysm under surveillance watch by . 7. Tobacco use and dependence in the form of chewing tobacco. Discharge plan: Return home Impression and plan of care have been directed as dictated by the signing physician. Joy Baxter nurse practitioner acting as scribe for signing physician. CC: Dr. Laron Holland Patient Condition at Discharge: Good Plan - Discharge Summary New Discharge Prescriptions: Nitroglycerin Sl Tabs [Nitrostat] 0.4 mg SUBLINGUAL Q5M PRN #25 tab PRN Reason: Chest Pain Rivaroxaban [Xarelto] 20 mg PO W/SUPPER #60 tab Discharge Medication List Mometasone Inhalr 220 Mcg/Puff [Asmanex] 1 puff INHALATION RT-BID 08/17/16 [ History] Atorvastatin [Lipitor] 80 mg PO HS #30 tab 08/18/16 [Rx] Clopidogrel [Plavix] 75 mg PO DAILY 30 Days 08/18/16 [Rx] Aspirin EC [Ecotrin Low Dose] 81 mg PO DAILY 09/02/16 [History] Metoprolol Tartrate [Lopressor] 25 mg PO BID 09/02/16 [History] Nitroglycerin Sl Tabs [Nitrostat] 0.4 mg SUBLINGUAL Q5M PRN #25 tab 09/05/16 [Rx ] Rivaroxaban [Xarelto] 20 mg PO W/SUPPER #60 tab 09/05/16 [Rx] Follow up Appointment(s)/Referral(s): Laron Holland DO [Primary Care Provider] - 09/18/16 8:10 am Simba Moss MD [STAFF PHYSICIAN] - 09/12/16 3:00 pm Patient Instructions/Handouts: After Heart Catheterization - Photographic Hand Developer, Chest Pain (ED) Discharge Disposition: HOME SELF-CARE
[2016-09-05] MEDS ORDERED: RIVAROXABAN 10 MG TAB PO SCH (17:30)
== END 2016-09-05 11:35 | disposition home or self-care (01) | DRG 249 ==
LOC: EC 16:29 → 6SEL 20:19
PROVIDERS: ADMIT Internal Medicine; ATTEND Internal Medicine
PROC: B2111ZZ Fluoroscopy of Multiple Coronary Arteries using Low Osmolar Contrast (ICD-10-PCS; 2016-09-04)
PROC: 02703DZ Dilation of Coronary Artery, One Artery with Intraluminal Device, Percutaneous Approach (ICD-10-PCS; principal; 2016-09-04 06:55)
PROC: 4A023N7 Measurement of Cardiac Sampling and Pressure, Left Heart, Percutaneous Approach (ICD-10-PCS; 2016-09-04 06:55)
DX: I22.2 Subsequent non-ST elevation (NSTEMI) myocardial infarction (principal); I25.82 Chronic total occlusion of coronary artery; I11.9 Hypertensive heart disease without heart failure; I21.4 Non-ST elevation (NSTEMI) myocardial infarction; I71.2 Thoracic aortic aneurysm, without rupture; I08.3 Combined rheumatic disorders of mitral, aortic and tricuspid valves; I48.0 Paroxysmal atrial fibrillation; E78.5 Hyperlipidemia, unspecified; E66.9 Obesity, unspecified; Z68.37 Body mass index [BMI] 37.0-37.9, adult; Z71.3 Dietary counseling and surveillance; G47.33 Obstructive sleep apnea (adult) (pediatric); I25.119 Atherosclerotic heart disease of native coronary artery with unspecified angina pectoris; K21.9 Gastro-esophageal reflux disease without esophagitis; M19.90 Unspecified osteoarthritis, unspecified site; Z87.891 Personal history of nicotine dependence; Z95.5 Presence of coronary angioplasty implant and graft; Z79.82 Long term (current) use of aspirin; Z79.01 Long term (current) use of anticoagulants; Z79.02 Long term (current) use of antithrombotics/antiplatelets; Z79.899 Other long term (current) drug therapy
CPT/HCPCS: 36415; 71010; 80048; 80053; 80061; 82550; 82553; 83735; 84100; 84484; 85025; 85610; 85730; 92928; 93005; 93306; 93458; 94640; 96365; 96366; 96375; 96376; 99291

== ENCOUNTER 2016-09-24 18:25 | Emergency (ER) | payer MEDICARE ==
[2016-09-24] MEDS ORDERED: DILTIAZEM 125 MG in SODIUM CHLORIDE 0.9% 100 ML IV ONE (18:30)
[2016-09-24] MEDS ORDERED: DILTIAZEM 5 MG/ML 5 ML VIAL IVP STA (18:30)
[2016-09-24 18:36] VITALS: BP 124/65; TEMP 97.6
[2016-09-24 18:59] LABS: Basophils # (A) 0.1 k/uL (0-0.2); Basophils % (A) 1 %; CH 33.5; CHCM 35.2; Eosinophils # (A) 0.3 k/uL (0-0.7); Eosinophils % (A) 4 %; HCT 46.3 % (39.0-53.0); HGB 15.5 gm/dL (13.0-17.5); Luc # (Auto) 0.15; Luc % (Auto) 2; Lymphocytes # (A) 1.7 k/uL (1.0-4.8); Lymphocytes % (A) 23 %; MCH 32.1 pg (25.0-35.0); MCHC 33.5 g/dL (31.0-37.0); MCV 95.9 fL (80.0-100.0); Mean Platelet Volume 7.7; Monocytes # (A) 0.6 k/uL (0-1.0); Monocytes % (A) 8 %; Neutrophils # (A) 4.6 k/uL (1.3-7.7); Neutrophils % (A) 63 %; RBC 4.83 m/uL (4.30-5.90); RDW 13.8 % (11.5-15.5); WBC 7.4 k/uL (3.8-10.6); WBC (Perox) 7.63
[2016-09-24 19:12] VITALS: PULSE 101; RESP 12
[2016-09-24 19:15] LABS: ALT 38 U/L (21-72); AST 22 U/L (17-59); Alkaline Phosphatase 91 U/L (38-126); Anion Gap 11 mmol/L; Blood Urea Nitrogen 19 mg/dL (9-20); Calcium 9.4 mg/dL (8.4-10.2); Carbon Dioxide 26 mmol/L (22-30); Chloride 106 mmol/L (98-107); Glucose 175 mg/dL (74-99); Magnesium 1.8 mg/dL (1.6-2.3); Non-African American GFR(MDRD) >60 (>60 ml/min/1.73 sqM); Potassium 4.3 mmol/L (3.5-5.1); Sodium 143 mmol/L (137-145); Total Bilirubin 1.2 mg/dL (0.2-1.3); Total Protein 6.6 g/dL (6.3-8.2)
[2016-09-24 19:29] LABS: INR 1.2 (<1.1); Partial Thromboplastin Time 26.7 sec (22.0-30.0); Prothrombin Time 12.2 sec (9.0-12.0)
[2016-09-24] MEDS ORDERED: INSULIN LISPRO (humaLOG) 300 UNIT/3 ML VIAL SQ ONE (20:38)
--- NOTE | 2016-09-24 20:50 | ED ---
Chest Pain HPI - General Chief Complaint: Chest Pain Stated Complaint: Chest Pain Time Seen by Provider: 09/24/16 18:28 Source: EMS, RN notes reviewed Mode of arrival: EMS Limitations: no limitations - History of Present Illness Initial Comments: This patient is 66-year-old man with history of recent stent placement who resents to be evaluated for substernal chest pain with radiation to the neck and arms that developed around 5:45 PM when he got up to use the bathroom. The patient states that when the pain did not resolve he became concerned and phone EMS. He noted that associated with the pain his heart was racing. Patient denies other anginal symptoms. MD Complaint: chest pain -: hour(s) Onset: during exertion Pain Location: substernal Pain Radiation: RUE, LUE, neck, jaw/teeth Severity: moderate Quality: aching, heaviness Consistency: constant Improves With: nothing Worsens With: nothing Treatments Prior to Arrival: oxygen - Related Data Home Medications Medication Instructions Recorded Confirmed Mometasone Inhalr 220 Mcg/Puff 1 puff INHALATION RT-BID 08/17/16 09/24/16 [Asmanex] Aspirin EC [Ecotrin Low Dose] 81 mg PO DAILY 09/02/16 09/24/16 Metoprolol Tartrate [Lopressor] 25 mg PO BID 09/02/16 09/24/16 Previous Rx's Medication Instructions Recorded Atorvastatin [Lipitor] 80 mg PO HS #30 tab 08/18/16 Clopidogrel [Plavix] 75 mg PO DAILY 30 Days 08/18/16 Nitroglycerin Sl Tabs [Nitrostat] 0.4 mg SUBLINGUAL Q5M PRN #25 tab 09/05/16 Rivaroxaban [Xarelto] 20 mg PO W/SUPPER #60 tab 09/05/16 Allergies Allergy/AdvReac Type Severity Reaction Status Date / Time Penicillins Allergy Anaphylaxis Verified 09/24/16 19:20 Review of Systems ROS Statement: Those systems with pertinent positive or pertinent negative responses have been documented in the HPI. ROS Other: All systems not noted in ROS Statement are negative. Constitutional: Denies: fever, chills Respiratory: Denies: cough, dyspnea, wheezes Cardiovascular: Reports: chest pain, palpitations. Denies: orthopnea, edema, syncope Gastrointestinal: Denies: abdominal pain, nausea, vomiting Genitourinary: Denies: dysuria Musculoskeletal: Denies: back pain Skin: Denies: rash Neurological: Denies: headache, weakness, numbness Psychiatric: Reports: anxiety EKG Findings - EKG Comments: EKG Findings:: Low voltage QRS complex. There is a Q wave in lead 3 and aVF that is present on the comparison EKG from 09/02/2016. - EKG Results: EKG: interpreted by ERMD, sinus rhythm, normal axis EKG shows: tachycardia (Rate approximately 102 bpm) Past Medical History Past Medical History: Atrial Fibrillation, Coronary Artery Disease (CAD), GERD/ Reflux, Hyperlipidemia, Hypertension, Osteoarthritis (OA), Sleep Apnea/CPAP/ BIPAP Additional Past Medical History / Comment(s): Thoracic aortic aneurysm 4.1 cm being monitored by Dr. Bennett, LION without device, PVCs, R leg phlebitis, past R wrist fx. Last Myocardial Infarction Date:: 08/17/16 History of Any Multi-Drug Resistant Organisms: None Reported Past Surgical History: Appendectomy Additional Past Surgical History / Comment(s): Fracture surgery,right leg vein stripping. Past Anesthesia/Blood Transfusion Reactions: No Reported Reaction Date of Last Stent Placement:: 08/17/16 Past Psychological History: No Psychological Hx Reported Additional Psychological History / Comment(s): Pt resides with spouse. He is independent. Smoking Status: Former smoker Past Alcohol Use History: Rare Additional Past Alcohol Use History / Comment(s): Pt started smoking as a teen and quit in 2005. He occasionally chews tobacco. Past Drug Use History: None Reported - Past Family History Father Family Medical History: No Reported History (Father at the age of 65 from lung condition.) Additional Family Medical History / Comment(s): in his 80's. Mother Family Medical History: No Reported History, Dementia (Mother diet in her 80's from dementia and old age.) Additional Family Medical History / Comment(s): Mother in her 80's Sister(s) Family Medical History: CVA/TIA (patient had 2 sisters one from CVA.) Daughter(s) Family Medical History: No Reported History (2 daughters no major medical problems.) Son(s) Family Medical History: No Reported History (one son no major medical problems.) General Exam Limitations: no limitations General appearance: alert, anxious Head exam: Present: atraumatic, normocephalic Eye exam: Present: normal appearance. Absent: scleral icterus, conjunctival injection Neck exam: Present: normal inspection, full ROM Respiratory exam: Present: normal lung sounds bilaterally. Absent: respiratory distress, wheezes, rales, rhonchi, stridor, chest wall tenderness Cardiovascular Exam: Present: normal rhythm, tachycardia, normal heart sounds. Absent: systolic murmur, diastolic murmur, rubs, gallop GI/Abdominal exam: Present: soft. Absent: distended, tenderness, guarding, rebound Extremities exam: Present: normal inspection, normal capillary refill. Absent: pedal edema, calf tenderness Back exam: Present: normal inspection. Absent: CVA tenderness (R), CVA tenderness (L) Neurological exam: Present: alert Skin exam: Present: warm, dry, intact, normal color. Absent: rash Course Vital Signs 09/24/16 09/24/16 18:28 19:11 Temperature 97.6 F Pulse Rate 106 H 101 H Respiratory 18 12 Rate Blood Pressure 124/65 124/65 O2 Sat by Pulse 96 96 Oximetry Chest Pain MDM - MDM This patient is a 66-year-old man with history of recent catheterization and stent placement who is brought by EMS tonight after he developed chest pain with radiation to the neck and jaw as well as both arms. EMS had sent a telemetry EKG that does show atrial fibrillation with a rate of approximately 160 bpm. During transport he was placed on oxygen. As he is arriving in the emergency department he was placed on the monitors here and he spontaneously converted back to sinus tachycardia, while I was in the room and after Cardizem had been ordered but before it was given. The patient is observed for a number of hours to ensure that he did not flip back into atrial fibrillation. During the time that he is here his symptoms have not recurred, the anginal pains had resolved when he reentered sinus rhythm. I discussed the case with Dr. Moss who knows the patient well from his previous admissions. They are okay with allowing the patient to go home, per the patient's request. Disposition Clinical Impression: Atrial fibrillation with RVR, Angina pectoris Disposition: HOME SELF-CARE Condition: Good Instructions: Atrial Fibrillation (ED), Angina (ED) Referrals: Laron Holland DO [Primary Care Provider] - 1-2 days
--- NOTE | 2016-09-24 22:22 | XR ---
EXAMINATION TYPE: XR chest 1V portable DATE OF EXAM: 09/24/2016 6:53 PM COMPARISON: Portable chest radiograph dated 09/02/2016 HISTORY: Shortness of breath TECHNIQUE: Single frontal view of the chest is obtained. FINDINGS: There is chronic left hemidiaphragm elevation with slight blunting of the left costophreni c angle, thought to be related to minimal left basilar subsegmental atelectasis and overlying soft ti ssue. No focal air space opacity, pleural effusion, or pneumothorax seen. The cardiac silhouette siz e is within normal limits. The osseous structures are intact. IMPRESSION: Minimal left basilar subsegmental atelectasis with chronic elevation of the left hemidia phragm. No focal consolidation.
== END 2016-09-24 21:00 | disposition home or self-care (01) ==
LOC: EC 18:25
DX: I48.91 Unspecified atrial fibrillation (principal); I25.119 Atherosclerotic heart disease of native coronary artery with unspecified angina pectoris; I10 Essential (primary) hypertension; G47.30 Sleep apnea, unspecified; E78.5 Hyperlipidemia, unspecified; J98.11 Atelectasis; I71.2 Thoracic aortic aneurysm, without rupture; M19.90 Unspecified osteoarthritis, unspecified site; I25.2 Old myocardial infarction; Z95.5 Presence of coronary angioplasty implant and graft; Z88.0 Allergy status to penicillin; Z79.02 Long term (current) use of antithrombotics/antiplatelets; Z79.01 Long term (current) use of anticoagulants; Z79.82 Long term (current) use of aspirin; Z87.891 Personal history of nicotine dependence; Z79.899 Other long term (current) drug therapy
CPT/HCPCS: 36415; 71010; 80053; 83735; 83880; 84484; 85025; 85610; 85730; 93005; 99285

== ENCOUNTER → 2016-10-04 | Outpatient (CLI) | payer MEDICARE ==
--- NOTE | 2016-10-05 10:22 | ECHOF ---
Referral Reason:Coronary Artery Disease I25.9 MEASUREMENTS -------- HEIGHT: 182.9 cm WEIGHT: 123.8 kg BP: 137/76 RVIDd: 3.2 cm (< 3.3) IVSd: 1.4 cm (0.6 - 1.1) LVIDd: 4.4 cm (3.9 - 5.3) LVPWd: 1.3 cm (0.6 - 1.1) IVSs: 1.9 cm LVIDs: 3.0 cm LVPWs: 1.8 cm LA Diam: 4.0 cm (2.7 - 3.8) LAESV Index (A-L): 23.72 ml/m Ao Diam: 3.6 cm (2.0 - 3.7) AV Cusp: 2.7 cm (1.5 - 2.6) MV EXCURSION: 17.570 mm (> 18.000) MV EF SLOPE: 83 mm/s (70 - 150) EPSS: 0.4 cm MV E Jerry: 0.66 m/s MV DecT: 265 ms MV A Jerry: 0.71 m/s MV E/A Ratio: 0.93 RAP: 5.00 mmHg RVSP: 16.81 mmHg FINDINGS -------- Sinus rhythm. This was a technically adequate study. The left ventricular size is normal. There is moderate concentric left ventricular hypertrophy. Overall left ventricular systolic function is mildly impaired with, an EF between 45 - 50 %. Basal inferior LV wall motion is hypokinetic. Basal inferoseptal LV wall motion is hypokinetic. The right ventricle is normal in size. The left atrium is normal in size. Normal LA size by volume 22+/-6 ml/m2. The right atrium is normal in size. The aortic valve is trileaflet, and appears structurally normal. No aortic stenosis or regurgitation. Mild mitral annular calcification present. Trace tricuspid regurgitation present. Right ventricular systolic pressure is normal at < 35 mmHg. Trace/mild (physiologic) pulmonic regurgitation. The aortic root size is normal. There is no pericardial effusion. CONCLUSIONS -------- 1. Sinus rhythm. 2. The right atrium is normal in size. 3. The aortic valve is trileaflet, and appears structurally normal. No aortic stenosis or regurgitation. 4. Mild mitral annular calcification present. 5. Trace tricuspid regurgitation present. 6. Right ventricular systolic pressure is normal at < 35 mmHg. 7. Trace/mild (physiologic) pulmonic regurgitation. 8. The aortic root size is normal. 9. There is no pericardial effusion. 10. This was a technically adequate study. 11. The left ventricular size is normal. 12. There is moderate concentric left ventricular hypertrophy. 13. Overall left ventricular systolic function is mildly impaired with, an EF between 45 - 50 %. 14. Basal inferior LV wall motion is hypokinetic. 15. Basal inferoseptal LV wall motion is hypokinetic. 16. The right ventricle is normal in size. 17. Normal LA size by volume 22+/-6 ml/m2. SYSTEM DEVELOPMENT MANAGER: Christa Corbin RDCS
== END | disposition home or self-care (01) ==
LOC: RADECHMAIN 11:16
PROVIDERS: ATTEND Family Medicine
DX: I08.1 Rheumatic disorders of both mitral and tricuspid valves (principal); I25.10 Atherosclerotic heart disease of native coronary artery without angina pectoris
CPT/HCPCS: 93306

== ENCOUNTER 2017-09-17 14:26 | Emergency (ER) | payer MEDICARE ==
[2017-09-17] MEDS ORDERED: IPRATROPIUM-ALBUTEROL 3 ML NEB INHALATION STA (15:04)
[2017-09-17] MEDS ORDERED: SODIUM CHLORIDE 0.9% 500 ML IV STA (15:04)
[2017-09-17] MEDS ORDERED: methylPREDNISolone SOD SUCCI 125 MG/2 ML VIAL IV STA (15:04)
[2017-09-17] MEDS ORDERED: ACETAMINOPHEN TAB 325 MG TAB PO STA (15:37)
--- NOTE | 2017-09-17 15:40 | ED ---
SOB HPI - General Chief Complaint: Shortness of Breath Stated Complaint: SOB-sent by Time Seen by Provider: 09/17/17 14:49 Source: patient Mode of arrival: wheelchair Limitations: no limitations - History of Present Illness Initial Comments: 67-year-old male with past medical history of ventral for ablation, CAD, GERD, HLD, HTN, OA and sleep apnea presented for evaluation of shortness of breath and cough for the last 2 weeks. States the symptoms have been intermittent during this time however acutely worsening yesterday. Says the cough is productive of clear sputum. He was seen for these symptoms last week and started on Bactrim. He has had his flu shot this year as well. Denies any recent surgeries, lower extremity edema, pain, erythema, or hemoptysis. - Related Data Home Medications Medication Instructions Recorded Confirmed Dronedarone [Multaq] 400 mg PO AC-BID 09/17/17 09/17/17 Rivaroxaban [Xarelto] 15 mg PO W/SUPPER 09/17/17 09/17/17 Previous Rx's Medication Instructions Recorded Atorvastatin [Lipitor] 80 mg PO HS #30 tab 08/18/16 Clopidogrel [Plavix] 75 mg PO DAILY 30 Days tab 08/18/16 Nitroglycerin Sl Tabs [Nitrostat] 0.4 mg SUBLINGUAL Q5M PRN #25 tab 09/05/16 Doxycycline Hyclate 100 mg PO BID #20 tab 09/17/17 predniSONE 50 mg PO DAILY #5 tablet 09/17/17 Allergies Allergy/AdvReac Type Severity Reaction Status Date / Time Penicillins Allergy Anaphylaxis Verified 09/17/17 15:25 Review of Systems ROS Statement: Those systems with pertinent positive or pertinent negative responses have been documented in the HPI. ROS Other: All systems not noted in ROS Statement are negative. Constitutional: Reports: fever (Subjective), chills. Denies: weakness, weight change, night sweats Eyes: Denies: eye pain, eye discharge ENT: Reports: congestion, other (Rhinorrhea). Denies: ear pain, throat pain Respiratory: Reports: cough, dyspnea. Denies: wheezes, hemoptysis, stridor Cardiovascular: Denies: chest pain, palpitations Endocrine: Denies: fatigue, polydipsia, polyuria Gastrointestinal: Denies: abdominal pain, nausea, vomiting Genitourinary: Denies: urgency, dysuria Musculoskeletal: Denies: back pain, arthralgia, myalgia Skin: Denies: rash, lesions Neurological: Denies: headache, weakness Psychiatric: Denies: anxiety, depression Hematological/Lymphatic: Denies: easy bleeding, easy bruising Past Medical History Past Medical History: Atrial Fibrillation, Coronary Artery Disease (CAD), GERD/ Reflux, Hyperlipidemia, Hypertension, Osteoarthritis (OA), Sleep Apnea/CPAP/ BIPAP Additional Past Medical History / Comment(s): Thoracic aortic aneurysm 4.1 cm being monitored by Dr. Bennett, LION without device, PVCs, R leg phlebitis, past R wrist fx. Last Myocardial Infarction Date:: 08/17/16 History of Any Multi-Drug Resistant Organisms: None Reported Past Surgical History: Appendectomy Additional Past Surgical History / Comment(s): Fracture surgery,right leg vein stripping. Past Anesthesia/Blood Transfusion Reactions: No Reported Reaction Date of Last Stent Placement:: 08/17/16 Past Psychological History: No Psychological Hx Reported Smoking Status: Former smoker Past Alcohol Use History: Rare Past Drug Use History: None Reported - Past Family History Father Family Medical History: No Reported History (Father at the age of 65 from lung condition.) Additional Family Medical History / Comment(s): in his 80's. Mother Family Medical History: No Reported History, Dementia (Mother diet in her 80's from dementia and old age.) Additional Family Medical History / Comment(s): Mother in her 80's Sister(s) Family Medical History: CVA/TIA (patient had 2 sisters one from CVA.) Daughter(s) Family Medical History: No Reported History (2 daughters no major medical problems.) Son(s) Family Medical History: No Reported History (one son no major medical problems.) General Exam Limitations: no limitations General appearance: alert, in no apparent distress Head exam: Present: atraumatic, normocephalic, normal inspection Eye exam: Present: normal appearance, PERRL, EOMI. Absent: scleral icterus, conjunctival injection, periorbital swelling ENT exam: Present: normal exam, mucous membranes moist Neck exam: Present: normal inspection. Absent: tenderness, meningismus, lymphadenopathy Respiratory exam: Present: wheezes (Bilaterally, worse on the right compared to the left). Absent: normal lung sounds bilaterally, respiratory distress, chest wall tenderness, accessory muscle use, decreased breath sounds Cardiovascular Exam: Present: regular rate, normal rhythm, normal heart sounds. Absent: systolic murmur, diastolic murmur, rubs, gallop, clicks GI/Abdominal exam: Present: soft, normal bowel sounds. Absent: distended, tenderness, guarding, rebound, rigid Rectal exam: Present: deferred Extremities exam: Present: normal inspection, full ROM, normal capillary refill. Absent: tenderness, pedal edema, joint swelling, calf tenderness Back exam: Present: normal inspection, full ROM Neurological exam: Present: alert, oriented X3, CN II-XII intact Psychiatric exam: Present: normal affect, normal mood Skin exam: Present: warm, dry, intact, normal color. Absent: rash Course Vital Signs 09/17/17 09/17/17 09/17/17 14:46 15:46 15:59 Temperature 101.5 F H Pulse Rate 91 74 80 Respiratory 24 18 18 Rate Blood Pressure 151/66 O2 Sat by Pulse 94 L Oximetry 09/17/17 09/17/17 09/17/17 16:08 16:16 16:17 Temperature 100.1 F H Pulse Rate 84 82 69 Respiratory 18 16 18 Rate Blood Pressure 166/66 O2 Sat by Pulse 95 Oximetry 09/17/17 18:09 Temperature 99 F Pulse Rate 101 H Respiratory 20 Rate Blood Pressure 141/67 O2 Sat by Pulse 94 L Oximetry Medical Decision Making - Medical Decision Making 67-year-old male with past history as noted above presented for evaluation of cough and shortness of breath or mainly for the last 2 weeks. States it acutely worsening yesterday and has associated clear cough, rhinorrhea. Patient is currently on Bactrim. His ago examination reveals coarse breath sounds bilaterally worse on the right compared to the left. Labs show the patient is febrile however not tachycardic or hypotensive. Patient was seen in July and diagnosed with bronchitis. Concern for recurrent bronchitis versus COPD exacerbation versus pneumonia. Labs revealed no significant abnormalities and chest x-ray showed no acute consolidation or infiltrate. The patient was reevaluated and had improvement in all symptoms and was informed of all results. He was advised follow-up with his primary care physician but to return to this facility if his symptoms should worsen or persist. The patient acknowledged an understanding of all information provided and agreed with this plan of care. - Lab Data Result diagrams: 09/17/17 15:30 09/17/17 15:30 Lab Results 09/17/17 09/17/17 09/17/17 Range/Units 15:30 15:30 15:30 WBC 9.5 (3.8-10.6) k/uL RBC 4.79 (4.30-5.90) m/uL Hgb 15.9 (13.0-17.5) gm/dL Hct 47.1 (39.0-53.0) % MCV 98.3 (80.0-100.0) fL MCH 33.2 (25.0-35.0) pg MCHC 33.7 (31.0-37.0) g/dL RDW 13.4 (11.5-15.5) % Plt Count 141 L (150-450) k/uL Neutrophils % 77 % Lymphocytes % 13 % Monocytes % 5 % Eosinophils % 2 % Basophils % 1 % Neutrophils # 7.4 (1.3-7.7) k/uL Lymphocytes # 1.3 (1.0-4.8) k/uL Monocytes # 0.5 (0-1.0) k/uL Eosinophils # 0.2 (0-0.7) k/uL Basophils # 0.0 (0-0.2) k/uL Sodium 140 (137-145) mmol/L Potassium 4.5 (3.5-5.1) mmol/L Chloride 103 (98-107) mmol/L Carbon Dioxide 28 (22-30) mmol/L Anion Gap 9 mmol/L BUN 14 (9-20) mg/dL Creatinine 1.02 (0.66-1.25) mg/dL Est GFR (MDRD) Af Amer >60 (>60 ml/min/1.73 sqM) Est GFR (MDRD) Non-Af >60 (>60 ml/min/1.73 sqM) Glucose 121 H (74-99) mg/dL Plasma Lactic Acid Ravinder (0.7-2.0) mmol/L Calcium 9.4 (8.4-10.2) mg/dL Influenza Type A RNA Not Detected (Not Detectd) Influenza Type B (PCR) Not Detected (Not Detectd) 09/17/17 Range/Units 15:30 WBC (3.8-10.6) k/uL RBC (4.30-5.90) m/uL Hgb (13.0-17.5) gm/dL Hct (39.0-53.0) % MCV (80.0-100.0) fL MCH (25.0-35.0) pg MCHC (31.0-37.0) g/dL RDW (11.5-15.5) % Plt Count (150-450) k/uL Neutrophils % % Lymphocytes % % Monocytes % % Eosinophils % % Basophils % % Neutrophils # (1.3-7.7) k/uL Lymphocytes # (1.0-4.8) k/uL Monocytes # (0-1.0) k/uL Eosinophils # (0-0.7) k/uL Basophils # (0-0.2) k/uL Sodium (137-145) mmol/L Potassium (3.5-5.1) mmol/L Chloride (98-107) mmol/L Carbon Dioxide (22-30) mmol/L Anion Gap mmol/L BUN (9-20) mg/dL Creatinine (0.66-1.25) mg/dL Est GFR (MDRD) Af Amer (>60 ml/min/1.73 sqM) Est GFR (MDRD) Non-Af (>60 ml/min/1.73 sqM) Glucose (74-99) mg/dL Plasma Lactic Acid Ravinder 1.1 (0.7-2.0) mmol/L Calcium (8.4-10.2) mg/dL Influenza Type A RNA (Not Detectd) Influenza Type B (PCR) (Not Detectd) - EKG Data EKG Comments: Sinus rhythm with retrograde rate of 89, [place] 140, QRS 96, QT/QTC 366/445 Disposition Clinical Impression: URI (upper respiratory infection), COPD exacerbation Disposition: HOME SELF-CARE Condition: Stable Instructions: Upper Respiratory Infection (ED), COPD (Chronic Obstructive Pulmonary Disease) (ED) Additional Instructions: Please use medication as discussed. Please follow up with family doctor if symptoms have not improved over the next two days. Please return to the emergency room if your symptoms increase or worsen or for any other concerns. Prescriptions: Doxycycline Hyclate 100 mg PO BID #20 tab predniSONE 50 mg PO DAILY #5 tablet Referrals: Laron Holland DO [Primary Care Provider] - 1-2 days Time of Disposition: 17:47
--- NOTE | 2017-09-17 15:45 | XR ---
EXAMINATION TYPE: XR chest 2V DATE OF EXAM: 09/17/2017 COMPARISON: 07/08/2017 HISTORY: Cirrhosis, cough, and congestion. TECHNIQUE: Frontal and lateral views of the chest are obtained. FINDINGS: There are similar appearing left basilar subsegmental atelectasis and left midlung atelect asis in comparison to the prior exam of 09/24/2016. There is chronic mild left hemidiaphragm elevation . There is no focal air space opacity, pleural effusion, or pneumothorax seen. The cardiac silhouett e size is within normal limits. The osseous structures are intact. Mild multilevel degenerative vanessa nges of thoracic spine are noted. IMPRESSION: Chronic multifocal left sided atelectasis unchanged from the exam of 09/24/2016. No new f ocal consolidation. No acute cardiopulmonary process.
[2017-09-17 16:12] LABS: Basophils % (A) 1 %; Eosinophils # (A) 0.2 k/uL (0-0.7); Eosinophils % (A) 2 %; HCT 47.1 % (39.0-53.0); HGB 15.9 gm/dL (13.0-17.5); Lymphocytes # (A) 1.3 k/uL (1.0-4.8); Lymphocytes % (A) 13 %; MCH 33.2 pg (25.0-35.0); MCHC 33.7 g/dL (31.0-37.0); MCV 98.3 fL (80.0-100.0); Mean Platelet Volume 7.4; Monocytes # (A) 0.5 k/uL (0-1.0); Monocytes % (A) 5 %; Neutrophils # (A) 7.4 k/uL (1.3-7.7); Neutrophils % (A) 77 %; Platelet Count 141 k/uL (150-450); RBC 4.79 m/uL (4.30-5.90); RDW 13.4 % (11.5-15.5); WBC 9.5 k/uL (3.8-10.6)
[2017-09-17 16:13] LABS: Anion Gap 9 mmol/L; Blood Urea Nitrogen 14 mg/dL (9-20); Calcium 9.4 mg/dL (8.4-10.2); Carbon Dioxide 28 mmol/L (22-30); Chloride 103 mmol/L (98-107); Glucose 121 mg/dL (74-99); Potassium 4.5 mmol/L (3.5-5.1); Sodium 140 mmol/L (137-145)
[2017-09-17 18:11] VITALS: BP 141/67; PULSE 101; RESP 20; TEMP 99
== END 2017-09-17 18:10 | disposition home or self-care (01) ==
LOC: EC 14:26
DX: J44.1 Chronic obstructive pulmonary disease with (acute) exacerbation (principal); J06.9 Acute upper respiratory infection, unspecified; I48.91 Unspecified atrial fibrillation; G47.30 Sleep apnea, unspecified; Z99.89 Dependence on other enabling machines and devices; Z87.891 Personal history of nicotine dependence; Z79.01 Long term (current) use of anticoagulants; Z79.899 Other long term (current) drug therapy; Z88.0 Allergy status to penicillin
CPT/HCPCS: 36415; 94644; 93005; 80048; 83605; 85025; 87040; 87502; 71046; 99285; 96374; 96361 ×2; J2930

== ENCOUNTER 2017-11-07 19:02 | Inpatient (IN) | payer MEDICARE ==
[2017-11-07] MEDS ORDERED: ALBUTEROL NEBULIZED 2.5 MG/3 ML INHALATION STA (19:17)
--- NOTE | 2017-11-07 19:19 | ED ---
General Adult HPI - General Chief complaint: Shortness of Breath Stated complaint: GLORIA Time Seen by Provider: 11/07/17 19:02 Source: patient, EMS, RN notes reviewed Mode of arrival: EMS - History of Present Illness Initial comments: This is a 67-year-old male who presents emergency Department complaining of COPD exacerbation per patient states been ongoing for a couple of days but much worse today. Patient states he is coughing up some sputum. He denies a fever he denies any chest pain or palpitations. Patient denies any abdominal pain patient denies nausea vomiting diarrhea. Patient has some edema to the legs but he states it's no worsening normally is. Patient denies headache patient denies numbness weakness. Patient received an albuterol Atrovent treatment on the way and as well as Solu-Medrol. Patient states she does not feel any better at this time. - Related Data Home Medications Medication Instructions Recorded Confirmed Rivaroxaban [Xarelto] 15 mg PO W/SUPPER 09/17/17 11/07/17 Albuterol Sulfate [Proair Hfa] 1 - 2 puff INHALATION RT-Q6H PRN 11/07/17 Previous Rx's Medication Instructions Recorded Atorvastatin [Lipitor] 80 mg PO HS #30 tab 08/18/16 Clopidogrel [Plavix] 75 mg PO DAILY 30 Days tab 08/18/16 Nitroglycerin Sl Tabs [Nitrostat] 0.4 mg SUBLINGUAL Q5M PRN #25 tab 09/05/16 Allergies Allergy/AdvReac Type Severity Reaction Status Date / Time Penicillins Allergy Anaphylaxis Verified 11/07/17 19:27 Review of Systems ROS Statement: Those systems with pertinent positive or pertinent negative responses have been documented in the HPI. ROS Other: All systems not noted in ROS Statement are negative. Past Medical History Past Medical History: Atrial Fibrillation, Coronary Artery Disease (CAD), GERD/ Reflux, Hyperlipidemia, Hypertension, Osteoarthritis (OA), Sleep Apnea/CPAP/ BIPAP Additional Past Medical History / Comment(s): Thoracic aortic aneurysm 4.1 cm being monitored by Dr. Bennett, LION without device, PVCs, R leg phlebitis, past R wrist fx. Last Myocardial Infarction Date:: 08/17/16 History of Any Multi-Drug Resistant Organisms: None Reported Past Surgical History: Appendectomy Additional Past Surgical History / Comment(s): Fracture surgery,right leg vein stripping. Past Anesthesia/Blood Transfusion Reactions: No Reported Reaction Date of Last Stent Placement:: 08/17/16 Past Psychological History: No Psychological Hx Reported Smoking Status: Former smoker Past Alcohol Use History: None Reported, Rare Past Drug Use History: None Reported - Past Family History Father Family Medical History: No Reported History (Father at the age of 65 from lung condition.) Additional Family Medical History / Comment(s): in his 80's. Mother Family Medical History: No Reported History, Dementia (Mother diet in her 80's from dementia and old age.) Additional Family Medical History / Comment(s): Mother in her 80's Sister(s) Family Medical History: CVA/TIA (patient had 2 sisters one from CVA.) Daughter(s) Family Medical History: No Reported History (2 daughters no major medical problems.) Son(s) Family Medical History: No Reported History (one son no major medical problems.) General Exam - General Exam Comments Initial Comments: GENERAL: Patient is well-developed and well-nourished. Patient is nontoxic and well- hydrated and is in moderate distress. ENT: Neck is soft and supple. No significant lymphadenopathy is noted. Oropharynx is clear. Moist mucous membranes. Neck has full range of motion without eliciting any pain. EYES: The sclera were anicteric and conjunctiva were pink and moist. Extraocular movements were intact and pupils were equal round and reactive to light. Eyelids were unremarkable. PULMONARY: Diffuse expiratory wheezing CARDIOVASCULAR: There is a regular rate and rhythm without any murmurs gallops or rubs. ABDOMEN: Soft and nontender with normal bowel sounds. No palpable organomegaly was noted. There is no palpable pulsatile mass. SKIN: Skin is clear with no lesions or rashes and otherwise unremarkable. NEUROLOGIC: Patient is alert and oriented x3. Cranial nerves II through XII are grossly intact. Motor and sensory are also intact. Normal speech, volume and content. Symmetrical smile. MUSCULOSKELETAL: Normal extremities with adequate strength and full range of motion. 1+ edema LYMPHATICS: No significant lymphadenopathy is noted PSYCHIATRIC: Normal psychiatric evaluation. Course Vital Signs 11/07/17 11/07/17 11/07/17 19:05 19:16 19:27 Temperature 99.1 F Pulse Rate 112 H 110 H Respiratory 40 H 40 H Rate Blood Pressure 162/94 O2 Sat by Pulse 99 Oximetry 11/07/17 11/07/17 19:52 19:59 Temperature Pulse Rate 114 H 100 Respiratory 36 H Rate Blood Pressure 172/79 O2 Sat by Pulse 97 Oximetry Medical Decision Making - Medical Decision Making EKG shows sinus tachycardia at a rate of 108 bpm MS interval is 136 QRS is 92 QT interval 310 QTC is 4:15. Patient's EKG shows no ST segment elevation or depression or T-wave abnormalities noted. Chest x-ray shows no acute abnormality. Chronic changes are again shown Patient got 3 albuterol treatments in a row. It did seem to help him slightly but he was still having difficulty breathing side with the patient on BiPAP and that fast improved his breathing and he was much more comfortable. I spoke with Dr. Tesfaye and she agreed to admit the patient admitted the patient I wrote admitting orders - Lab Data Result diagrams: 11/07/17 19:10 11/07/17 19:10 Lab Results 11/07/17 11/07/17 11/07/17 Range/Units 19:10 19:10 19:10 WBC 11.0 H (3.8-10.6) k/uL RBC 4.73 (4.30-5.90) m/uL Hgb 15.2 (13.0-17.5) gm/dL Hct 46.0 (39.0-53.0) % MCV 97.2 (80.0-100.0) fL MCH 32.1 (25.0-35.0) pg MCHC 33.0 (31.0-37.0) g/dL RDW 14.0 (11.5-15.5) % Plt Count 187 (150-450) k/uL Neutrophils % 57 % Lymphocytes % 25 % Monocytes % 6 % Eosinophils % 10 % Basophils % 1 % Neutrophils # 6.2 (1.3-7.7) k/uL Lymphocytes # 2.7 (1.0-4.8) k/uL Monocytes # 0.6 (0-1.0) k/uL Eosinophils # 1.0 H (0-0.7) k/uL Basophils # 0.1 (0-0.2) k/uL PT (9.0-12.0) sec INR (<1.2) APTT (22.0-30.0) sec Sodium 143 (137-145) mmol/L Potassium 4.2 (3.5-5.1) mmol/L Chloride 102 (98-107) mmol/L Carbon Dioxide 32 H (22-30) mmol/L Anion Gap 9 mmol/L BUN 13 (9-20) mg/dL Creatinine 0.77 (0.66-1.25) mg/dL Est GFR (CKD-EPI)AfAm >90 (>60 ml/min/1.73 sqM) Est GFR (CKD-EPI)NonAf >90 (>60 ml/min/1.73 sqM) Glucose 179 H (74-99) mg/dL Calcium 9.1 (8.4-10.2) mg/dL Magnesium 1.9 (1.6-2.3) mg/dL Total Bilirubin 1.7 H (0.2-1.3) mg/dL AST 24 (17-59) U/L ALT 36 (21-72) U/L Alkaline Phosphatase 67 (38-126) U/L Total Creatine Kinase 115 (55-170) U/L CK-MB (CK-2) 1.4 (0.0-2.4) ng/mL CK-MB (CK-2) Rel Index 1.2 Troponin I <0.012 (0.000-0.034) ng/mL NT-Pro-B Natriuret Pep pg/mL Total Protein 6.5 (6.3-8.2) g/dL Albumin 4.0 (3.5-5.0) g/dL 11/07/17 11/07/17 Range/Units 19:10 19:10 WBC (3.8-10.6) k/uL RBC (4.30-5.90) m/uL Hgb (13.0-17.5) gm/dL Hct (39.0-53.0) % MCV (80.0-100.0) fL MCH (25.0-35.0) pg MCHC (31.0-37.0) g/dL RDW (11.5-15.5) % Plt Count (150-450) k/uL Neutrophils % % Lymphocytes % % Monocytes % % Eosinophils % % Basophils % % Neutrophils # (1.3-7.7) k/uL Lymphocytes # (1.0-4.8) k/uL Monocytes # (0-1.0) k/uL Eosinophils # (0-0.7) k/uL Basophils # (0-0.2) k/uL PT 11.2 (9.0-12.0) sec INR 1.2 H (<1.2) APTT 25.1 (22.0-30.0) sec Sodium (137-145) mmol/L Potassium (3.5-5.1) mmol/L Chloride (98-107) mmol/L Carbon Dioxide (22-30) mmol/L Anion Gap mmol/L BUN (9-20) mg/dL Creatinine (0.66-1.25) mg/dL Est GFR (CKD-EPI)AfAm (>60 ml/min/1.73 sqM) Est GFR (CKD-EPI)NonAf (>60 ml/min/1.73 sqM) Glucose (74-99) mg/dL Calcium (8.4-10.2) mg/dL Magnesium (1.6-2.3) mg/dL Total Bilirubin (0.2-1.3) mg/dL AST (17-59) U/L ALT (21-72) U/L Alkaline Phosphatase (38-126) U/L Total Creatine Kinase (55-170) U/L CK-MB (CK-2) (0.0-2.4) ng/mL CK-MB (CK-2) Rel Index Troponin I (0.000-0.034) ng/mL NT-Pro-B Natriuret Pep 85 pg/mL Total Protein (6.3-8.2) g/dL Albumin (3.5-5.0) g/dL Critical Care Time Critical Care Time: Yes Total Critical Care Time: 35 Disposition Clinical Impression: COPD with acute exacerbation Disposition: ADMITTED IP TO THIS HOSP Referrals: Laron Holland DO [Primary Care Provider] - 1-2 days Time of Disposition: 20:21
[2017-11-07 19:26] LABS: Basophils # (A) 0.1 k/uL (0-0.2); Basophils % (A) 1 %; Eosinophils % (A) 10 %; HGB 15.2 gm/dL (13.0-17.5); Lymphocytes # (A) 2.7 k/uL (1.0-4.8); Lymphocytes % (A) 25 %; MCH 32.1 pg (25.0-35.0); MCV 97.2 fL (80.0-100.0); Mean Platelet Volume 7.1; Monocytes # (A) 0.6 k/uL (0-1.0); Monocytes % (A) 6 %; Neutrophils # (A) 6.2 k/uL (1.3-7.7); Neutrophils % (A) 57 %; Platelet Count 187 k/uL (150-450); RBC 4.73 m/uL (4.30-5.90)
[2017-11-07 19:39] LABS: ALT 36 U/L (21-72); AST 24 U/L (17-59); Alkaline Phosphatase 67 U/L (38-126); Anion Gap 9 mmol/L; Blood Urea Nitrogen 13 mg/dL (9-20); Calcium 9.1 mg/dL (8.4-10.2); Carbon Dioxide 32 mmol/L (22-30); Chloride 102 mmol/L (98-107); Glucose 179 mg/dL (74-99); Magnesium 1.9 mg/dL (1.6-2.3); Potassium 4.2 mmol/L (3.5-5.1); Sodium 143 mmol/L (137-145); Total Bilirubin 1.7 mg/dL (0.2-1.3); Total Protein 6.5 g/dL (6.3-8.2)
[2017-11-07 19:44] LABS: INR 1.2 (<1.2); Partial Thromboplastin Time 25.1 sec (22.0-30.0); Prothrombin Time 11.2 sec (9.0-12.0)
[2017-11-07 19:48] LABS: Creatine Kinase 115 U/L (55-170)
[2017-11-07 20:01] LABS: Creatine Kinase MB 1.4 ng/mL (0.0-2.4); Troponin I <0.012 ng/mL (0.000-0.034)
--- NOTE | 2017-11-07 20:18 | XR ---
EXAMINATION TYPE: XR chest 1V DATE OF EXAM: 11/07/2017 COMPARISON: 09/17/2017 HISTORY: Difficulty breathing TECHNIQUE: Single frontal view of the chest is obtained. FINDINGS: There is some linear density in the left midlung. There is linear density at the lateral l eft lung base. There is no gross heart failure. The right lung is clear. There are chest leads. IMPRESSION: There is chronic pleural and pulmonary density in the left lower lobe consistent with sc arring and chronic infiltrate that is unchanged compared to last exam. No heart failure. Left lower l obe abnormality is worse than old chest x-ray 09/24/2016.
[2017-11-08 00:01] VITALS: BMI 38.2
[2017-11-08] MEDS: methylPREDNISolone SOD SUCCI 125 MG/2 ML VIAL IV SCH ×5 (05:04→23:10)
[2017-11-08 07:03] LABS: Glucose,Whole Blood 203 mg/dL (75-99)
[2017-11-08] MEDS: INSULIN ASPART 100 UNIT/ML 1 ML 10 ML VIAL SQ SCH ×4 (07:08→21:51)
[2017-11-08] MEDS: IPRATROPIUM-ALBUTEROL 3 ML NEB INHALATION PRN ×3 (08:45→19:30)
[2017-11-08] MEDS ORDERED: NITROGLYCERIN SL TABS 0.4 MG TAB SUBLINGUAL PRN (11:17)
[2017-11-08] MEDS ORDERED: RX INFO: IV CONTRAST WAS GIVEN 1 EACH MISC MISCELLANE PRN (11:20)
[2017-11-08] MEDS: LEVOFLOXACIN 750MG-D5W PMX 750 MG in DEXTROSE/WATER 1 150ML.BAG IVPB SCH (12:12)
[2017-11-08] MEDS: guaiFENesin 600 MG TABLET.ER PO SCH ×2 (12:14→21:51)
--- NOTE | 2017-11-08 12:24 | P.CNPUL ---
History of Present Illness Consult date: 11/08/17 Requesting physician: Elba Joy Reason for consult: COPD, pneumonia Chief complaint: Shortness of breath and cough History of present illness: This is a 67-year-old white male with history of obstructive sleep apnea syndrome, maintained on BiPAP, history of coronary artery disease and previous stents 2, history of hypercholesterolemia, chronic atrial fibrillation, osteoarthritis, and previous history of thoracic aortic aneurysm measuring 4.1 cm, being followed by vascular surgery on a regular basis. Patient presented with a few days' history of shortness of breath, cough, the cough is productive with whitish phlegm, no fever, but he felt some chills, no nausea no vomiting, no abdominal pain, no melena, no hematemesis. Patient was seen in the ER, and a chest x-ray showed chronic up pasty in the left lower lobe area. Seems to be more pronounced on this x-ray compared to a previous x-ray, hence I ordered a CT of the chest. In the meantime patient was kept on bronchodilators, antibiotics, steroids, and BiPAP. 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 Review of Systems 14 point review of systems were obtained, please refer to pertinent positives and negatives as per HPI, otherwise remaining systems are negative. Past Medical History Past Medical History: Atrial Fibrillation, Coronary Artery Disease (CAD), COPD, GERD/Reflux, Hyperlipidemia, Hypertension, Osteoarthritis (OA), Sleep Apnea/CPAP /BIPAP Additional Past Medical History / Comment(s): Thoracic aortic aneurysm 4.1 cm being monitored by Dr. Bennett, LION without device, PVCs, R leg phlebitis, past R wrist fx. Last Myocardial Infarction Date:: 08/17/16 History of Any Multi-Drug Resistant Organisms: MRSA Date of last positivie culture/infection: 2007 MDRO Source:: LEFT ARM Past Surgical History: Appendectomy, Heart Catheterization With Stent Additional Past Surgical History / Comment(s): Fracture surgery,right leg vein stripping. Past Anesthesia/Blood Transfusion Reactions: No Reported Reaction Date of Last Stent Placement:: 09/02/16 Past Psychological History: No Psychological Hx Reported Additional Psychological History / Comment(s): Pt resides with spouse. He is independent. Smoking Status: Former smoker Past Alcohol Use History: None Reported, Rare Additional Past Alcohol Use History / Comment(s): Pt started smoking as a teen and quit in 2005. He USED occasionally chew tobacco. Past Drug Use History: None Reported - Past Family History Father Family Medical History: No Reported History Additional Family Medical History / Comment(s): in his 80's HAD HEART ISSUES Mother Family Medical History: No Reported History, Dementia Additional Family Medical History / Comment(s): Mother in her 80's Sister(s) Family Medical History: CVA/TIA Daughter(s) Family Medical History: No Reported History Son(s) Family Medical History: No Reported History Medications and Allergies Home Medications Medication Instructions Recorded Confirmed Type Atorvastatin [Lipitor] 80 mg PO HS #30 tab 08/18/16 11/07/17 Rx Clopidogrel [Plavix] 75 mg PO DAILY 30 Days tab 08/18/16 11/07/17 Rx Nitroglycerin Sl Tabs [Nitrostat] 0.4 mg SUBLINGUAL Q5M PRN #25 tab 09/05/16 Rx Rivaroxaban [Xarelto] 15 mg PO W/SUPPER 09/17/17 11/07/17 History Albuterol Sulfate [Proair Hfa] 1 - 2 puff INHALATION RT-Q6H PRN 11/07/17 History Allergies Allergy/AdvReac Type Severity Reaction Status Date / Time Penicillins Allergy Anaphylaxis Verified 11/07/17 19:27 Physical Exam Vitals: Vital Signs Temp Pulse Pulse Resp BP BP Pulse Ox 11/08/17 08:57 76 11/08/17 08:48 70 95 11/08/17 08:00 98 F 90 18 103/67 97 11/08/17 04:00 98.0 F 73 20 118/52 97 11/08/17 00:00 98.1 F 99 24 128/70 99 11/07/17 23:31 98.1 F 99 24 128/70 99 11/07/17 21:55 100 24 150/72 97 11/07/17 20:39 97 24 149/67 100 11/07/17 19:59 100 36 H 172/79 97 11/07/17 19:52 114 H 11/07/17 19:27 110 H 11/07/17 19:16 40 H 11/07/17 19:05 99.1 F 112 H 40 H 162/94 99 Intake and Output 11/07/17 11/08/17 11/08/17 22:59 06:59 14:59 Output Total 325 Balance -325 Output: Urine 325 Other: Voiding Method Urinal # Voids 1 Weight 127.006 kg 127.9 kg Physical Exam: Revealed a 67-year-old white male in no distress. Presently on BiPAP. Head: Atraumatic, normocephalic. HEENT:[Neck is supple.] [No neck masses.] [No thyromegaly.] [No JVD.] PERRLA, EOMI, no icterus. Chest: [Diffuse rhonchi noted bilaterally, symmetrical chest expansion, no chest wall tenderness noted. Cardiac Exam: Irregular irregular rhythm [Normal S1 and S2, no S3 gallop, no murmur.] Abdomen: [Obese, Soft, nontender, no megaly, no rebound, no guarding, normal bowel sounds.] Extremities: [No clubbing, no edema, no cyanosis.] Neurological Exam: [No focal neurologic deficit.] Lymphatics: No lymphadenopathy. Psychiatric: Normal mood affect and mental status exam. Results - Laboratory Findings CBC and BMP: 11/07/17 19:10 11/07/17 19:10 PT/INR, D-dimer PT 11.2 sec (9.0-12.0) 11/07/17 19:10 INR 1.2 (<1.2) H 11/07/17 19:10 Abnormal lab findings: Abnormal Labs 11/07/17 11/07/17 11/07/17 19:10 19:10 19:10 WBC 11.0 H Eosinophils # 1.0 H INR 1.2 H Carbon Dioxide 32 H Glucose 179 H POC Glucose (mg/dL) Total Bilirubin 1.7 H 11/08/17 07:01 WBC Eosinophils # INR Carbon Dioxide Glucose POC Glucose (mg/dL) 203 H Total Bilirubin - Diagnostic Findings Chest x-ray: image reviewed (Left pleural parenchymal density noted in the left lower lobe, was noted on previous x-ray dated 09/24/2016, but seems to be more prominent on this x-ray.) Assessment and Plan Assessment: Impression: 1 acute hypoxic respiratory failure secondary to left lower lobe pneumonia, community-acquired, COPD exacerbation, and history of obstructive sleep apnea syndrome. 2 strongly suspect left lower lobe pneumonia, however considering the worsening picture of the left lower lobe, a CT of the chest without contrast was ordered. 3 history of obstructive sleep apnea syndrome remains on his BiPAP. 4 history of chronic atrial fibrillation 5 history of coronary artery disease and previous stents 2 6 history of osteoarthritis. 7 history of hypercholesterolemia. 8 history of thoracic aortic aneurysm, 4.1 cm in size. Recommendation: Continue present course of antibiotics, bronchodilators, steroids, continue BiPAP, continue oxygen, will recommend CT of the chest without contrast, and based on the CT of the chest, further recommendations will follow. Discussed the patient's condition with the admitting physician and the plan. Time with Patient: Greater than 30
[2017-11-08 12:27] LABS: Glucose,Whole Blood 180 mg/dL (75-99)
--- NOTE | 2017-11-08 15:34 | CT ---
EXAMINATION TYPE: CT chest wo con DATE OF EXAM: 11/08/2017 COMPARISON: 01/30/2011 HISTORY: Difficulty breathing CT DLP: 1199 mGycm. Automated Exposure Control for Dose Reduction was Utilized. TECHNIQUE: CT scan of the thorax is performed without IV contrast. FINDINGS: LUNGS: Lingular atelectasis is redemonstrated. This is unchanged from the prior exam of 2010. Subpleu ral 2 mm pulmonary nodule on series 4 image 16 within the right upper lobe is also unchanged from the exam of 2011 and should be considered benign. There is mild left hemidiaphragm elevation that is als o unchanged from 2011. The lungs are grossly clear, there is no concerning parenchymal mass or nodule identified. There is no pleural effusion or pneumothorax seen. The tracheobronchial tree is paten t. MEDIASTINUM: Lack of IV contrast is noted to limit evaluation for mediastinal and especially hilar ad enopathy. There are no definitive greater than 1 cm hilar or mediastinal lymph nodes. No cardiomega ly or pericardial effusion is seen. Moderate calcifications are seen within the left anterior descend ing coronary artery and a lesser degree within the circumflex and right coronary artery. OTHER: Punctate nonobstructing 2 mm left midpole renal calculus is seen. Mild multilevel degenerative changes of the thoracic spine are noted. IMPRESSION: 1. Chronic lingular subsegmental atelectasis. Otherwise no acute intrathoracic process. 2. Punctate 2 mm nonobstructing left midpole renal calculus. 3. Moderate coronary artery calcifications, marker for coronary artery disease.
--- NOTE | 2017-11-08 15:58 | P.HPIM ---
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 Berumen with a previous medical history significant for a PD atrial fibrillation, hypertension and hypertensive cardiovascular disease, hyperlipidemia, obesity with LION,CAD and STEMI, requiring PCI RCA in 2016. Admitted to the emergency room secondary to COPD exacerbation. He had shortness of breath and difficulty breathing of 2 days' duration, cough productive of whitish sputum, no fever no chills, he was severely dyspneic when seen in the emergency room with significant bronchospasms. Emergency room, x-rays shows chronic pleural and pulmonary density left lower lobe consistent with scarring and chronic infiltrate that is unchanged to previous exam, lower lobe abnormalities worsen old x-ray February 2017, no CHF changes EKG shows sinus tachycardia heart rate of 108, PVCs, pulmonary disease pattern and nonspecific ST-T wave changes though bleed WBC count of 11.0, INR 1.2, creatinine 0.7. Sugar of 203 Review of Systems Constitutional: Reports as per HPI, Denies anorexia, Denies chills, Denies chronic headaches, Denies chronic pain, Denies daytime sleepiness, Denies fatigue, Denies fever, Denies lethargy, Denies malaise, Denies night sweats, Denies poor appetite, Denies sweats, Denies weakness, Denies weight gain, Denies weight loss Ears, nose, mouth and throat: Reports as per HPI, Denies ant. neck pain, Denies bleeding gums, Denies dental pain, Denies dysphagia, Denies epistaxis, Denies headache, Denies hoarseness, Denies mouth pain, Denies nasal congestion, Denies nasal discharge, Denies neck fullness/pressure, Denies neck lump, Denies nose pain, Denies odynophagia, Denies post-nasal drip, Denies sinus pain, Denies sinus pressure, Denies swelling in mouth, Denies swelling in throat, Denies sore throat, Denies vertigo, Denies voice changes Cardiovascular: Reports as per HPI, Reports decreased exercise tolerance, Reports dyspnea on exertion, Reports shortness of breath, Denies chest pain, Denies claudication, Denies edema, Denies high blood pressure, Denies irregular heart beat, Denies leg edema, Denies lightheadedness, Denies orthopnea, Denies palpitations, Denies paroxysmal nocturnal dyspnea, Denies phlebitis, Denies rapid heart beat, Denies syncope Respiratory: Reports as per HPI, Reports cough, Reports cough with sputum, Reports wheezing, Denies congestion, Denies dyspnea, Denies excessive sputum, Denies hemoptysis, Denies home oxygen, Denies pain, Denies pain on inspiration, Denies pleurisy, Denies respiratory infections, Denies sleep apnea, Denies snoring Gastrointestinal: Reports as per HPI, Denies abdominal pain, Denies belching, Denies bloating, Denies BRBPR, Denies change in bowel habits, Denies coffee ground emesis, Denies constipation, Denies diarrhea, Denies dyspepsia, Denies early satiety, Denies excessive gas, Denies heartburn, Denies hematemesis, Denies hematochezia, Denies indigestion, Denies jaundice, Denies lactose intolerance, Denies loss of appetite, Denies melena, Denies nausea, Denies vomiting Genitourinary: Reports as per HPI, Denies decreased libido, Denies difficulties fathering child, Denies discharge, Denies dysuria, Denies erectile dysfunction, Denies flank pain, Denies genital pain, Denies genital sores, Denies hematuria, Denies impotence, Denies incontinence, Denies kidney stones, Denies nocturia, Denies polyuria, Denies testicular lump, Denies testicular pain, Denies urinary frequency, Denies urinary hesitancy, Denies urinary retention Integumentary: Reports as per HPI Neurological: Reports as per HPI Psychiatric: Reports as per HPI Endocrine: Reports as per HPI, Denies cold intolerance, Denies deepening of the voice, Denies excessive sweating, Denies excessive thirst, Denies fatigue, Denies flushing, Denies heat intolerance, Denies high blood sugars, Denies increase in ring/shoe/hat size, Denies low blood sugars, Denies nocturia, Denies palpitations, Denies polydipsia, Denies polyphagia, Denies polyuria, Denies proptosis, Denies recent glucocorticoid use, Denies thyroid mass, Denies weight change Hematologic/Lymphatic: Reports as per HPI, Denies easy bleeding, Denies easy bruising, Denies lymphadenopathy, Denies lymphedema, Denies thrombophilia Allergic/Immunologic: Reports as per HPI, Denies allergic rhinitis, Denies anaphylaxis, Denies angioedema, Denies gluten intolerance, Denies persistent infections, Denies seasonal allergies, Denies urticaria, Denies wheezing Past Medical History Past Medical History: Atrial Fibrillation, Coronary Artery Disease (CAD), COPD, GERD/Reflux, Hyperlipidemia, Hypertension, Osteoarthritis (OA), Sleep Apnea/CPAP /BIPAP Additional Past Medical History / Comment(s): Thoracic aortic aneurysm 4.1 cm being monitored by Dr. Bennett, LION without device, PVCs, R leg phlebitis, past R wrist fx. Last Myocardial Infarction Date:: 08/17/16 History of Any Multi-Drug Resistant Organisms: MRSA Date of last positivie culture/infection: 2007 MDRO Source:: LEFT ARM Past Surgical History: Appendectomy, Heart Catheterization With Stent Additional Past Surgical History / Comment(s): Fracture surgery,right leg vein stripping. Past Anesthesia/Blood Transfusion Reactions: No Reported Reaction Date of Last Stent Placement:: 09/02/16 Past Psychological History: No Psychological Hx Reported Additional Psychological History / Comment(s): Pt resides with spouse. He is independent. Smoking Status: Former smoker Past Alcohol Use History: None Reported, Rare Additional Past Alcohol Use History / Comment(s): Pt started smoking as a teen and quit in 2005. He USED occasionally chew tobacco. Past Drug Use History: None Reported - Past Family History Father Family Medical History: No Reported History Additional Family Medical History / Comment(s): in his 80's HAD HEART ISSUES Mother Family Medical History: No Reported History, Dementia Additional Family Medical History / Comment(s): Mother in her 80's Sister(s) Family Medical History: CVA/TIA Daughter(s) Family Medical History: No Reported History Son(s) Family Medical History: No Reported History Medications and Allergies Home Medications Medication Instructions Recorded Confirmed Type Atorvastatin [Lipitor] 80 mg PO HS #30 tab 08/18/16 11/07/17 Rx Clopidogrel [Plavix] 75 mg PO DAILY 30 Days tab 08/18/16 11/07/17 Rx Nitroglycerin Sl Tabs [Nitrostat] 0.4 mg SUBLINGUAL Q5M PRN #25 tab 09/05/16 Rx Rivaroxaban [Xarelto] 15 mg PO W/SUPPER 09/17/17 11/07/17 History Albuterol Sulfate [Proair Hfa] 1 - 2 puff INHALATION RT-Q6H PRN 11/07/17 History Allergies Allergy/AdvReac Type Severity Reaction Status Date / Time Penicillins Allergy Anaphylaxis Verified 11/07/17 19:27 Physical Exam Vitals: Vital Signs Temp Pulse Pulse Resp BP BP Pulse Ox 11/08/17 13:28 70 11/08/17 13:13 72 11/08/17 12:00 98.1 F 88 16 118/58 97 11/08/17 08:57 76 11/08/17 08:48 70 95 11/08/17 08:00 98 F 90 18 121/56 97 11/08/17 04:00 98.0 F 73 20 118/52 97 11/08/17 00:00 98.1 F 99 24 128/70 99 11/07/17 23:31 98.1 F 99 24 128/70 99 11/07/17 21:55 100 24 150/72 97 11/07/17 20:39 97 24 149/67 100 11/07/17 19:59 100 36 H 172/79 97 11/07/17 19:52 114 H 11/07/17 19:27 110 H 11/07/17 19:16 40 H 11/07/17 19:05 99.1 F 112 H 40 H 162/94 99 Intake and Output 11/08/17 11/08/17 11/08/17 06:59 14:59 22:59 Intake Total 720 Output Total 325 300 Balance -325 420 Intake: Oral 720 Output: Urine 325 300 Other: Voiding Method Urinal # Voids 1 Weight 127.9 kg - Constitutional General appearance: average body habitus, no acute distress - EENT Eyes: anicteric sclerae, EOMI, PERRLA, dentition normal ENT: no hard of hearing, no hearing grossly normal, no NA/AT, no normal oropharynx, no other, no pharyngeal erythema, no thrush, no tonsillar exudates, no tonsillar swelling - Neck Neck: normal ROM - Respiratory Respiratory: bilateral: CTA, negative: diminished, dullness, rales, rhonchi - Cardiovascular Rhythm: regular Heart sounds: normal: S1, S2 Abnormal Heart Sounds: no systolic murmur, no diastolic murmur, no rub, no S3 Gallop, no S4 Gallop, no click, no other - Gastrointestinal General gastrointestinal: normal bowel sounds, soft - Integumentary Integumentary: normal, normal turgor - Neurologic Neurologic: CNII-XII intact - Musculoskeletal Musculoskeletal: gait normal, strength equal bilaterally - Psychiatric Psychiatric: A&O x's 3, appropriate affect, intact judgment & insight Results CBC & Chem 7: 11/07/17 19:10 11/07/17 19:10 Labs: Abnormal Lab Results - Last 24 Hours (Table) 11/07/17 11/07/17 11/07/17 Range/Units 19:10 19:10 19:10 WBC 11.0 H (3.8-10.6) k/uL Eosinophils # 1.0 H (0-0.7) k/uL INR 1.2 H (<1.2) Carbon Dioxide 32 H (22-30) mmol/L Glucose 179 H (74-99) mg/dL POC Glucose (mg/dL) (75-99) mg/dL Total Bilirubin 1.7 H (0.2-1.3) mg/dL 11/08/17 11/08/17 Range/Units 07:01 11:47 WBC (3.8-10.6) k/uL Eosinophils # (0-0.7) k/uL INR (<1.2) Carbon Dioxide (22-30) mmol/L Glucose (74-99) mg/dL POC Glucose (mg/dL) 203 H 180 H (75-99) mg/dL Total Bilirubin (0.2-1.3) mg/dL Thrombosis Risk Factor Assmnt - DVT/VTE Prophylaxis DVT/VTE Prophylaxis: Pharmacologic Prophylaxis ordered - Choose All That Apply Each Factor Represents 1 point: Abnormal pulmonary function (COPD) Each Risk Factor Represents 2 Points: Age 61-74 years Thrombosis Risk Factor Assessment Total Risk Factor Score: 3 Thrombosis Risk Factor Assessment Level: Moderate Risk Assessment and Plan Plan: Plan: 1. 1. Acute COPD exacerbation presenting with Acute on chronic hypoxemic respiratory failure requiring noninvasive BiPAP treatments, FiO2 50%, has 24- hour [id number] 2 L nasal cannula at home, nebulized albuterol and Atrovent, Solu-Medrol. Dr. Lock is on consult, CAT scan of the chest was requested to evaluate the left lower lobe pleural nodule that was seen in routine x-rays. 2. Left lower lobe abnormality chronic pleural and pulmonary density left lower lobe with acute Tracheobronchitis, patient was started on Levaquin, IV, he would try to attempt sputum cultures, no evidence of purulence at this time, , computed tomography scan off the chest without contrast was requested by Dr. Lock 3. History non-ST elevation DE post left heart catheterization and PCI of the RCA recently done in July 2017. Continue aspirin 81 mg orally once every day, Plavix 75 mg orally once every day, metoprolol 50 mg orally twice every day (increased), Lipitor 80 mg orally once every day. 4. History of Paroxysmal atrial fibrillation currently sinus rhythm , patient has been on Xarelto. Patient is not on any beta giovani during admission home 5 Impaired random blood sugars, Accu-Cheks will obtained hemoglobin A1c, diabetes mellitus type 2 is suspected 6. Hypertension and hypertensive cardiovascular disease. On Lipitor Xarelto 15 mg Plavix 75 mg 7. Hyperlipidemia. continue Lipitor 80 mg orally once every day. Lipid management with diet 8. Obesity with LION. will continue with CPAP. 9. Abdominal Aortic Aneurysm.under surveillance watch by . 10. Tobacco use and dependence in the form of chewing tobacco.abstinence from nicotine recommended. 11Obstructive sleep apnea, has CPAP device at home O2 supplementation 24 7 12. DVT prophylaxis.on Xarelto 50 mg chronically. 13. GI prophylaxis .will continue with protonix 40 mg orally once a day. 14. Admit as inpatient.estimated length of stay 2 midnights. 15. Full code.
[2017-11-08 16:48] LABS: Glucose,Whole Blood 168 mg/dL (75-99)
[2017-11-08] MEDS: RIVAROXABAN 15 MG TAB PO SCH (17:20)
[2017-11-08 19:01] LABS: Hemoglobin A1C 7.3 % (4.0-6.0)
[2017-11-08] MEDS: SYMBICORT 160-4.5 MCG INHALER INHALATION SCH (19:30)
[2017-11-08 21:24] LABS: Glucose,Whole Blood 176 mg/dL (75-99)
[2017-11-08] MEDS: ATORVASTATIN 80 MG TAB PO SCH (21:51)
[2017-11-09] MEDS: methylPREDNISolone SOD SUCCI 125 MG/2 ML VIAL IV SCH ×3 (06:04→18:22)
[2017-11-09 06:05] LABS: Glucose,Whole Blood 190 mg/dL (75-99)
[2017-11-09] MEDS: INSULIN ASPART 100 UNIT/ML 1 ML 10 ML VIAL SQ SCH ×4 (06:05→21:34)
[2017-11-09 06:14] LABS: Basophils % (A) 0 %; Eosinophils % (A) 0 %; HCT 42.3 % (39.0-53.0); HGB 13.9 gm/dL (13.0-17.5); Lymphocytes # (A) 0.7 k/uL (1.0-4.8); Lymphocytes % (A) 6 %; MCH 32.3 pg (25.0-35.0); MCHC 32.8 g/dL (31.0-37.0); MCV 98.3 fL (80.0-100.0); Monocytes # (A) 0.3 k/uL (0-1.0); Monocytes % (A) 2 %; Neutrophils # (A) 10.7 k/uL (1.3-7.7); Neutrophils % (A) 92 %; Platelet Count 179 k/uL (150-450); RBC 4.31 m/uL (4.30-5.90); RDW 13.7 % (11.5-15.5); WBC 11.7 k/uL (3.8-10.6)
[2017-11-09 06:18] LABS: ALT 32 U/L (21-72); AST 17 U/L (17-59); Albumin 3.6 g/dL (3.5-5.0); Alkaline Phosphatase 58 U/L (38-126); Anion Gap 6 mmol/L; Blood Urea Nitrogen 16 mg/dL (9-20); Calcium 9.7 mg/dL (8.4-10.2); Carbon Dioxide 34 mmol/L (22-30); Chloride 100 mmol/L (98-107); Glucose 224 mg/dL (74-99); Potassium 5.3 mmol/L (3.5-5.1); Sodium 140 mmol/L (137-145); Total Bilirubin 0.9 mg/dL (0.2-1.3); Total Protein 5.8 g/dL (6.3-8.2)
[2017-11-09] MEDS: IPRATROPIUM-ALBUTEROL 3 ML NEB INHALATION PRN ×4 (07:53→21:31)
[2017-11-09] MEDS: SYMBICORT 160-4.5 MCG INHALER INHALATION SCH ×2 (07:53→21:31)
[2017-11-09] MEDS: guaiFENesin 600 MG TABLET.ER PO SCH ×2 (08:25→20:11)
[2017-11-09] MEDS: CLOPIDOGREL 75 MG TAB PO SCH (08:25)
[2017-11-09] MEDS ORDERED: SODIUM POLYSTYRENE SULFONATE 15 GM/60 ML BOTTLE PO STA (09:11)
--- NOTE | 2017-11-09 11:11 | P.PN ---
Subjective Progress Note Date: 11/09/17 Principal diagnosis: COPD exacerbation Patient continued to be hemodynamically stable overnight no major events reported by nursing staff patient currently is an alert and oriented 3 denying chest pain nausea vomiting abdominal pain dizziness lightheadedness or blurry vision. Patient stated that he still short of breath still using the BiPAP and concern regarding his breathing. Objective - Vital Signs Vital signs: Vital Signs Temp 96.5 F L 11/09/17 04:00 Pulse 97 11/09/17 08:18 Resp 24 11/09/17 08:00 BP 123/56 11/09/17 08:00 Pulse Ox 100 11/09/17 08:00 Intake & Output 11/08/17 11/09/17 11/09/17 18:59 06:59 18:59 Intake Total 1080 20 Output Total 300 600 Balance 780 -580 Weight 127.3 kg 127.3 kg Intake: IV 20 0.9 20 Oral 1080 Output: Urine 300 600 Other: Voiding Method Urinal # Voids 1 - Exam Gen.: in stated age, no acute distress Heart: Normal S1-S2 Lungs: Decreased air entry bilaterally Abdomen: Soft, no tenderness, positive bowel sounds in all 4 quadrant no guarding or rebound Skin: No new rash Psych: Alert and oriented 3 Neuro: No focal deficit - Labs CBC & Chem 7: 11/09/17 05:45 11/09/17 05:45 Labs: Abnormal Lab Results - Last 24 Hours (Table) 11/07/17 11/08/17 11/08/17 Range/Units 19:10 11:47 16:43 WBC (3.8-10.6) k/uL Neutrophils # (1.3-7.7) k/uL Lymphocytes # (1.0-4.8) k/uL Potassium (3.5-5.1) mmol/L Carbon Dioxide (22-30) mmol/L Glucose (74-99) mg/dL POC Glucose (mg/dL) 180 H 168 H (75-99) mg/dL Hemoglobin A1c 7.3 H (4.0-6.0) % Total Protein (6.3-8.2) g/dL 11/08/17 11/09/17 11/09/17 Range/Units 21:06 05:45 05:45 WBC 11.7 H (3.8-10.6) k/uL Neutrophils # 10.7 H (1.3-7.7) k/uL Lymphocytes # 0.7 L (1.0-4.8) k/uL Potassium 5.3 H (3.5-5.1) mmol/L Carbon Dioxide 34 H (22-30) mmol/L Glucose 224 H (74-99) mg/dL POC Glucose (mg/dL) 176 H (75-99) mg/dL Hemoglobin A1c (4.0-6.0) % Total Protein 5.8 L (6.3-8.2) g/dL 11/09/17 Range/Units 06:01 WBC (3.8-10.6) k/uL Neutrophils # (1.3-7.7) k/uL Lymphocytes # (1.0-4.8) k/uL Potassium (3.5-5.1) mmol/L Carbon Dioxide (22-30) mmol/L Glucose (74-99) mg/dL POC Glucose (mg/dL) 190 H (75-99) mg/dL Hemoglobin A1c (4.0-6.0) % Total Protein (6.3-8.2) g/dL Assessment and Plan Assessment: 1. Acute hypoxic respiratory failure with COPD exacerbation. 2. Pneumonia, community-acquired. 3. Obstructive sleep apnea. 4. Morbid obesity. 5. Coronary artery disease status post stent 2 in the past. 6. Hyperlipidemia. 7. Hypertension. 8. History of aortic aneurysm. 9. Hyperkalemia We would continue with current steroid dose wean off as tolerated continue with BiPAP wean off to nasal cannula continue with aggressive breathing treatment and pulmonary hygiene will follow-up with pulmonary recommendation continue DVT prophylaxis and encourage oral intake. I would like to give patient's capsulate and monitor his potassium closely. Discharge planning based on clinical progress
--- NOTE | 2017-11-09 11:36 | P.PN ---
Subjective Progress Note Date: 11/09/17 Principal diagnosis: Acute hypoxic respiratory failure secondary to COPD exacerbation and tracheobronchitis. This is a 67-year-old white male with history of obstructive sleep apnea syndrome, maintained on BiPAP, history of coronary artery disease and previous stents 2, history of hypercholesterolemia, chronic atrial fibrillation, osteoarthritis, and previous history of thoracic aortic aneurysm measuring 4.1 cm, being followed by vascular surgery on a regular basis. Patient presented with a few days' history of shortness of breath, cough, the cough is productive with whitish phlegm, no fever, but he felt some chills, no nausea no vomiting, no abdominal pain, no melena, no hematemesis. Patient was seen in the ER, and a chest x-ray showed chronic up pasty in the left lower lobe area. Seems to be more pronounced on this x-ray compared to a previous x-ray, hence I ordered a CT of the chest. In the meantime patient was kept on bronchodilators, antibiotics, steroids, and BiPAP. 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 Patient was reevaluated today on 11/09/2017, feeling better, breathing easier, less cough and less wheezing less shortness of breath, no major events reported overnight. CT of the chest showed mostly chronic scarring in the lingula with subsegmental atelectasis present previously back in 2010. Hence the findings on this chest x-ray are chronic, and clearly did not point to malignancy. Patient is responding well to bronchodilators and antibiotics, hence I plan to clear for discharge in the next 24 hours, and should have follow-up with us on outpatient basis. Patient should be discharged on bronchodilators antibiotics and steroids and of course his usual BiPAP. Objective - Vital Signs Vital signs: Vital Signs Temp 96.5 F L 11/09/17 04:00 Pulse 97 11/09/17 08:18 Resp 24 11/09/17 08:00 BP 123/56 11/09/17 08:00 Pulse Ox 100 11/09/17 08:00 Intake & Output 11/08/17 11/09/17 11/09/17 18:59 06:59 18:59 Intake Total 1080 20 Output Total 300 600 Balance 780 -580 Weight 127.3 kg 127.3 kg Intake: IV 20 0.9 20 Oral 1080 Output: Urine 300 600 Other: Voiding Method Urinal # Voids 1 - Exam Physical Exam: Revealed a 67-year-old white male in no distress. Presently on BiPAP. Head: Atraumatic, normocephalic. HEENT:[Neck is supple.] [No neck masses.] [No thyromegaly.] [No JVD.] PERRLA, EOMI, no icterus. Chest: [Clear today, no crackles or rhonchi or wheezes. Cardiac Exam: Irregular irregular rhythm [Normal S1 and S2, no S3 gallop, no murmur.] Abdomen: [Obese, Soft, nontender, no megaly, no rebound, no guarding, normal bowel sounds.] Extremities: [No clubbing, no edema, no cyanosis.] Neurological Exam: [No focal neurologic deficit.] Lymphatics: No lymphadenopathy. Psychiatric: Normal mood affect and mental status exam. - Labs CBC & Chem 7: 11/09/17 05:45 11/09/17 05:45 Labs: Abnormal Lab Results - Last 24 Hours (Table) 11/07/17 11/08/17 11/08/17 Range/Units 19:10 11:47 16:43 WBC (3.8-10.6) k/uL Neutrophils # (1.3-7.7) k/uL Lymphocytes # (1.0-4.8) k/uL Potassium (3.5-5.1) mmol/L Carbon Dioxide (22-30) mmol/L Glucose (74-99) mg/dL POC Glucose (mg/dL) 180 H 168 H (75-99) mg/dL Hemoglobin A1c 7.3 H (4.0-6.0) % Total Protein (6.3-8.2) g/dL 11/08/17 11/09/17 11/09/17 Range/Units 21:06 05:45 05:45 WBC 11.7 H (3.8-10.6) k/uL Neutrophils # 10.7 H (1.3-7.7) k/uL Lymphocytes # 0.7 L (1.0-4.8) k/uL Potassium 5.3 H (3.5-5.1) mmol/L Carbon Dioxide 34 H (22-30) mmol/L Glucose 224 H (74-99) mg/dL POC Glucose (mg/dL) 176 H (75-99) mg/dL Hemoglobin A1c (4.0-6.0) % Total Protein 5.8 L (6.3-8.2) g/dL 11/09/17 Range/Units 06:01 WBC (3.8-10.6) k/uL Neutrophils # (1.3-7.7) k/uL Lymphocytes # (1.0-4.8) k/uL Potassium (3.5-5.1) mmol/L Carbon Dioxide (22-30) mmol/L Glucose (74-99) mg/dL POC Glucose (mg/dL) 190 H (75-99) mg/dL Hemoglobin A1c (4.0-6.0) % Total Protein (6.3-8.2) g/dL Assessment and Plan Assessment: Impression: 1 acute hypoxic respiratory failure secondary COPD exacerbation, and history of obstructive sleep apnea syndrome. And secondary to chronic scarring in the lingula with subsegmental atelectasis, pneumonia is not entirely ruled out but felt to be less likely based on the CT of the chest. [address] of the chest, the findings are mostly pointing to scarring and atelectasis, no clear-cut evidence of active pneumonia. 3 history of obstructive sleep apnea syndrome remains on his BiPAP. 4 history of chronic atrial fibrillation 5 history of coronary artery disease and previous stents 2 6 history of osteoarthritis. 7 history of hypercholesterolemia. 8 history of thoracic aortic aneurysm, 4.1 cm in size. Recommendation: Continue present course of antibiotics, bronchodilators, steroids, continue BiPAP, continue oxygen, discharge planning in a.m., follow- up with us in the office in 2 weeks. Patient should be discharged home on oral antibiotics, bronchodilators/updrafts, and a course of prednisone 30 mg tapered over 2 weeks. And of course he should continue to use his BiPAP. Time with Patient: Less than 30
[2017-11-09 11:38] LABS: Glucose,Whole Blood 276 mg/dL (75-99)
[2017-11-09] MEDS: LEVOFLOXACIN 750MG-D5W PMX 750 MG in DEXTROSE/WATER 1 150ML.BAG IVPB SCH (12:49)
[2017-11-09 16:15] LABS: Glucose,Whole Blood 176 mg/dL (75-99)
[2017-11-09 17:22] LABS: Glucose,Whole Blood 202 mg/dL (75-99)
[2017-11-09] MEDS: RIVAROXABAN 15 MG TAB PO SCH (18:23)
[2017-11-09 20:03] LABS: Glucose,Whole Blood 219 mg/dL (75-99)
[2017-11-09] MEDS: ATORVASTATIN 80 MG TAB PO SCH (20:11)
[2017-11-10] MEDS: methylPREDNISolone SOD SUCCI 125 MG/2 ML VIAL IV SCH ×4 (00:25→18:30)
[2017-11-10 07:04] LABS: Glucose,Whole Blood 252 mg/dL (75-99)
[2017-11-10 07:20] LABS: Basophils % (A) 0 %; Eosinophils # (A) 0.1 k/uL (0-0.7); Eosinophils % (A) 1 %; HCT 40.1 % (39.0-53.0); HGB 14.1 gm/dL (13.0-17.5); Lymphocytes # (A) 0.5 k/uL (1.0-4.8); Lymphocytes % (A) 5 %; MCH 33.7 pg (25.0-35.0); MCV 96.1 fL (80.0-100.0); Mean Platelet Volume 7.3; Monocytes # (A) 0.2 k/uL (0-1.0); Monocytes % (A) 2 %; Neutrophils # (A) 9.6 k/uL (1.3-7.7); Neutrophils % (A) 92 %; Platelet Count 163 k/uL (150-450); RBC 4.18 m/uL (4.30-5.90); RDW 13.8 % (11.5-15.5); WBC 10.4 k/uL (3.8-10.6)
[2017-11-10 07:31] LABS: ALT 31 U/L (21-72); AST 19 U/L (17-59); Albumin 3.3 g/dL (3.5-5.0); Alkaline Phosphatase 51 U/L (38-126); Anion Gap 7 mmol/L; Blood Urea Nitrogen 22 mg/dL (9-20); Calcium 9.3 mg/dL (8.4-10.2); Carbon Dioxide 33 mmol/L (22-30); Chloride 101 mmol/L (98-107); Glucose 238 mg/dL (74-99); Potassium 4.4 mmol/L (3.5-5.1); Sodium 141 mmol/L (137-145); Total Bilirubin 0.8 mg/dL (0.2-1.3); Total Protein 5.3 g/dL (6.3-8.2)
[2017-11-10] MEDS: IPRATROPIUM-ALBUTEROL 3 ML NEB INHALATION PRN ×3 (07:37→15:20)
[2017-11-10] MEDS: SYMBICORT 160-4.5 MCG INHALER INHALATION SCH ×2 (07:37→19:17)
[2017-11-10] MEDS: guaiFENesin 600 MG TABLET.ER PO SCH ×2 (07:41→20:50)
[2017-11-10] MEDS: LEVOFLOXACIN 750 MG TAB PO SCH (07:41)
[2017-11-10] MEDS: CLOPIDOGREL 75 MG TAB PO SCH (07:41)
[2017-11-10] MEDS: INSULIN ASPART 100 UNIT/ML 1 ML 10 ML VIAL SQ SCH ×4 (08:10→20:50)
[2017-11-10 11:32] LABS: Glucose,Whole Blood 202 mg/dL (75-99)
--- NOTE | 2017-11-10 16:29 | P.PN ---
Subjective Progress Note Date: 11/10/17 Principal diagnosis: Acute hypoxic respiratory failure secondary to COPD exacerbation and tracheobronchitis. This is a 67-year-old white male with history of obstructive sleep apnea syndrome, maintained on BiPAP, history of coronary artery disease and previous stents 2, history of hypercholesterolemia, chronic atrial fibrillation, osteoarthritis, and previous history of thoracic aortic aneurysm measuring 4.1 cm, being followed by vascular surgery on a regular basis. Patient presented with a few days' history of shortness of breath, cough, the cough is productive with whitish phlegm, no fever, but he felt some chills, no nausea no vomiting, no abdominal pain, no melena, no hematemesis. Patient was seen in the ER, and a chest x-ray showed chronic up pasty in the left lower lobe area. Seems to be more pronounced on this x-ray compared to a previous x-ray, hence I ordered a CT of the chest. In the meantime patient was kept on bronchodilators, antibiotics, steroids, and BiPAP. 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 Patient was reevaluated today on 11/09/2017, feeling better, breathing easier, less cough and less wheezing less shortness of breath, no major events reported overnight. CT of the chest showed mostly chronic scarring in the lingula with subsegmental atelectasis present previously back in 2010. Hence the findings on this chest x-ray are chronic, and clearly did not point to malignancy. Patient is responding well to bronchodilators and antibiotics, hence I plan to clear for discharge in the next 24 hours, and should have follow-up with us on outpatient basis. Patient should be discharged on bronchodilators antibiotics and steroids and of course his usual BiPAP. Reevaluated today on 11/10/2017, patient is doing great, asymptomatic, hardly any cough, occasional wheezing, no chest pain, no fever, no chills, no hemoptysis. CT of the chest as noted above. Chronic scarring otherwise unremarkable. CBC and basic metabolic profile were noted to be relatively normal. Objective - Vital Signs Vital signs: Vital Signs Temp 97.6 F 11/10/17 07:00 Pulse 84 11/10/17 15:32 Resp 16 11/10/17 07:00 BP 151/76 11/10/17 07:00 Pulse Ox 95 11/10/17 07:40 Intake & Output 11/09/17 11/10/17 11/10/17 18:59 06:59 18:59 Intake Total 240 Balance 240 Weight 127.3 kg 127.3 kg Intake: Oral 240 Other: Voiding Method Urinal Urinal # Voids 1 - Exam Physical Exam: Revealed a 67-year-old white male in no distress. Presently on nasal cannula, off BiPAP. Head: Atraumatic, normocephalic. HEENT:[Neck is supple.] [No neck masses.] [No thyromegaly.] [No JVD.] PERRLA, EOMI, no icterus. Chest: [Clear today, no crackles or rhonchi or wheezes. Cardiac Exam: Irregular irregular rhythm [Normal S1 and S2, no S3 gallop, no murmur.] Abdomen: [Obese, Soft, nontender, no megaly, no rebound, no guarding, normal bowel sounds.] Extremities: [No clubbing, no edema, no cyanosis.] Neurological Exam: [No focal neurologic deficit.] Lymphatics: No lymphadenopathy. Psychiatric: Normal mood affect and mental status exam. - Labs CBC & Chem 7: 11/10/17 06:56 11/10/17 06:56 Labs: Abnormal Lab Results - Last 24 Hours (Table) 11/09/17 11/09/17 11/10/17 Range/Units 17:20 20:01 06:56 RBC 4.18 L (4.30-5.90) m/uL Neutrophils # 9.6 H (1.3-7.7) k/uL Lymphocytes # 0.5 L (1.0-4.8) k/uL Carbon Dioxide (22-30) mmol/L BUN (9-20) mg/dL Glucose (74-99) mg/dL POC Glucose (mg/dL) 202 H 219 H (75-99) mg/dL Total Protein (6.3-8.2) g/dL Albumin (3.5-5.0) g/dL 11/10/17 11/10/17 11/10/17 Range/Units 06:56 07:03 11:30 RBC (4.30-5.90) m/uL Neutrophils # (1.3-7.7) k/uL Lymphocytes # (1.0-4.8) k/uL Carbon Dioxide 33 H (22-30) mmol/L BUN 22 H (9-20) mg/dL Glucose 238 H (74-99) mg/dL POC Glucose (mg/dL) 252 H 202 H (75-99) mg/dL Total Protein 5.3 L (6.3-8.2) g/dL Albumin 3.3 L (3.5-5.0) g/dL Microbiology - Last 24 Hours (Table) 11/09/17 08:45 Gram Stain - Preliminary Sputum Sputum Culture - Preliminary Assessment and Plan Assessment: Impression: 1 acute hypoxic respiratory failure secondary COPD exacerbation, and history of obstructive sleep apnea syndrome. And secondary to chronic scarring in the lingula with subsegmental atelectasis, pneumonia is not entirely ruled out but felt to be less likely based on the CT of the chest. [address] of the chest, the findings are mostly pointing to scarring and atelectasis, no clear-cut evidence of active pneumonia. 3 history of obstructive sleep apnea syndrome remains on his BiPAP. 4 history of chronic atrial fibrillation 5 history of coronary artery disease and previous stents 2 6 history of osteoarthritis. 7 history of hypercholesterolemia. 8 history of thoracic aortic aneurysm, 4.1 cm in size. Recommendation: Continue present course of antibiotics, bronchodilators, steroids, continue BiPAP, continue oxygen, cleared for discharge by pulmonary. Time with Patient: Less than 30
[2017-11-10 17:22] LABS: Glucose,Whole Blood 184 mg/dL (75-99)
[2017-11-10] MEDS: RIVAROXABAN 15 MG TAB PO SCH (18:30)
[2017-11-10 20:24] LABS: Glucose,Whole Blood 250 mg/dL (75-99)
[2017-11-10] MEDS: ATORVASTATIN 80 MG TAB PO SCH (20:50)
--- NOTE | 2017-11-10 21:42 | P.PN ---
Subjective Progress Note Date: 11/10/17 Principal diagnosis: COPD exacerbation Patient continued to be hemodynamically stable overnight no major events reported by nursing staff patient currently is an alert and oriented 3 denying chest pain nausea vomiting abdominal pain dizziness lightheadedness or blurry vision. Patient stated that he still short of breath has improved and seems to be less labor today. Objective - Vital Signs Vital signs: Vital Signs Temp 97.7 F 11/10/17 15:00 Pulse 92 11/10/17 19:30 Resp 16 11/10/17 16:00 BP 116/62 11/10/17 15:00 Pulse Ox 92 L 11/10/17 16:47 Intake & Output 11/10/17 11/10/17 11/11/17 06:59 18:59 06:59 Intake Total 240 Balance 240 Weight 127.3 kg Intake: Oral 240 Other: Voiding Method Urinal Urinal # Voids 1 4 - Exam Gen.: in stated age, no acute distress Heart: Normal S1-S2 Lungs: Decreased air entry bilaterally Abdomen: Soft, no tenderness, positive bowel sounds in all 4 quadrant no guarding or rebound Skin: No new rash Psych: Alert and oriented 3 Neuro: No focal deficit - Labs CBC & Chem 7: 11/10/17 06:56 11/10/17 06:56 Labs: Abnormal Lab Results - Last 24 Hours (Table) 11/10/17 11/10/17 11/10/17 Range/Units 06:56 06:56 07:03 RBC 4.18 L (4.30-5.90) m/uL Neutrophils # 9.6 H (1.3-7.7) k/uL Lymphocytes # 0.5 L (1.0-4.8) k/uL Carbon Dioxide 33 H (22-30) mmol/L BUN 22 H (9-20) mg/dL Glucose 238 H (74-99) mg/dL POC Glucose (mg/dL) 252 H (75-99) mg/dL Total Protein 5.3 L (6.3-8.2) g/dL Albumin 3.3 L (3.5-5.0) g/dL 11/10/17 11/10/17 11/10/17 Range/Units 11:30 17:21 20:22 RBC (4.30-5.90) m/uL Neutrophils # (1.3-7.7) k/uL Lymphocytes # (1.0-4.8) k/uL Carbon Dioxide (22-30) mmol/L BUN (9-20) mg/dL Glucose (74-99) mg/dL POC Glucose (mg/dL) 202 H 184 H 250 H (75-99) mg/dL Total Protein (6.3-8.2) g/dL Albumin (3.5-5.0) g/dL Microbiology - Last 24 Hours (Table) 11/09/17 08:45 Gram Stain - Preliminary Sputum Sputum Culture - Preliminary Assessment and Plan Assessment: 1. Acute hypoxic respiratory failure with COPD exacerbation. 2. Pneumonia, community-acquired. 3. Obstructive sleep apnea. 4. Morbid obesity. 5. Coronary artery disease status post stent 2 in the past. 6. Hyperlipidemia. 7. Hypertension. 8. History of aortic aneurysm. 9. Hyperkalemia We will wean off steroids as tolerated continue with BiPAP wean off to nasal cannula continue with aggressive breathing treatment and pulmonary hygiene will follow-up with pulmonary recommendation continue DVT prophylaxis and encourage oral intake. I would like to give patient's capsulate and monitor his potassium closely. Discharge planning based on clinical progress. will obtain PT/OT prior to discharge. d/w nursing staff
[2017-11-10 22:25] VITALS: RESP 18
[2017-11-11] MEDS: methylPREDNISolone SOD SUCCI 125 MG/2 ML VIAL IV SCH ×3 (01:46→12:31)
[2017-11-11 07:22] LABS: Glucose,Whole Blood 223 mg/dL (75-99)
[2017-11-11] MEDS: SYMBICORT 160-4.5 MCG INHALER INHALATION SCH (08:24)
[2017-11-11] MEDS: IPRATROPIUM-ALBUTEROL 3 ML NEB INHALATION PRN (08:24)
[2017-11-11 08:30] LABS: Basophils % (A) 0 %; Eosinophils % (A) 0 %; HCT 44.1 % (39.0-53.0); HGB 14.9 gm/dL (13.0-17.5); Lymphocytes # (A) 0.5 k/uL (1.0-4.8); Lymphocytes % (A) 5 %; MCH 32.7 pg (25.0-35.0); MCHC 33.9 g/dL (31.0-37.0); MCV 96.3 fL (80.0-100.0); Mean Platelet Volume 7.4; Monocytes # (A) 0.3 k/uL (0-1.0); Monocytes % (A) 3 %; Neutrophils # (A) 9.1 k/uL (1.3-7.7); Neutrophils % (A) 91 %; Platelet Count 181 k/uL (150-450); RBC 4.58 m/uL (4.30-5.90); RDW 13.6 % (11.5-15.5)
[2017-11-11 09:02] VITALS: BP 130/63; PULSE 89; TEMP 98
[2017-11-11] MEDS: LEVOFLOXACIN 750 MG TAB PO SCH (09:12)
[2017-11-11] MEDS: guaiFENesin 600 MG TABLET.ER PO SCH (09:13)
[2017-11-11] MEDS: INSULIN ASPART 100 UNIT/ML 1 ML 10 ML VIAL SQ SCH (09:13)
[2017-11-11] MEDS: CLOPIDOGREL 75 MG TAB PO SCH (09:13)
[2017-11-11 11:33] LABS: Glucose,Whole Blood 222 mg/dL (75-99)
--- NOTE | 2017-11-11 14:22 | P.PN ---
Subjective Progress Note Date: 11/11/17 Principal diagnosis: Acute hypoxic rest or a failure secondary to COPD exacerbation and tracheobronchitis This is a 67-year-old white male with history of obstructive sleep apnea syndrome, maintained on BiPAP, history of coronary artery disease and previous stents 2, history of hypercholesterolemia, chronic atrial fibrillation, osteoarthritis, and previous history of thoracic aortic aneurysm measuring 4.1 cm, being followed by vascular surgery on a regular basis. Patient presented with a few days' history of shortness of breath, cough, the cough is productive with whitish phlegm, no fever, but he felt some chills, no nausea no vomiting, no abdominal pain, no melena, no hematemesis. Patient was seen in the ER, and a chest x-ray showed chronic up pasty in the left lower lobe area. Seems to be more pronounced on this x-ray compared to a previous x-ray, hence I ordered a CT of the chest. In the meantime patient was kept on bronchodilators, antibiotics, steroids, and BiPAP. 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 Patient was reevaluated today on 11/09/2017, feeling better, breathing easier, less cough and less wheezing less shortness of breath, no major events reported overnight. CT of the chest showed mostly chronic scarring in the lingula with subsegmental atelectasis present previously back in 2010. Hence the findings on this chest x-ray are chronic, and clearly did not point to malignancy. Patient is responding well to bronchodilators and antibiotics, hence I plan to clear for discharge in the next 24 hours, and should have follow-up with us on outpatient basis. Patient should be discharged on bronchodilators antibiotics and steroids and of course his usual BiPAP. Reevaluated today on 11/10/2017, patient is doing great, asymptomatic, hardly any cough, occasional wheezing, no chest pain, no fever, no chills, no hemoptysis. CT of the chest as noted above. Chronic scarring otherwise unremarkable. CBC and basic metabolic profile were noted to be relatively normal. On 11/11/2017 patient seen in follow-up. Continues to improve, denies any worsening dyspnea. Lung sounds are clear, good air entry noted bilaterally, no rhonchi or wheezes noted. On 2 L per nasal cannula, with O2 sat 93%. Vital signs are stable, hemodynamically stable. Denies fever, chills, or worsening chest congestion. From pulmonary standpoint patient is stable for discharge home today, follow up with Dr. Berumen in the office in one week. Objective - Vital Signs Vital signs: Vital Signs Temp 98.0 F 11/11/17 07:00 Pulse 92 11/11/17 08:34 Resp 18 11/11/17 08:24 BP 130/63 11/11/17 07:00 Pulse Ox 93 L 11/11/17 07:00 Intake & Output 11/10/17 11/11/17 11/11/17 18:59 06:59 18:59 Intake Total 240 550 Balance 240 550 Weight 127 kg Intake: Oral 240 550 Other: Voiding Method Urinal Urinal Urinal # Voids 4 2 - Exam GENERAL EXAM: Alert, pleasant, 67-year-old white male comfortable in no apparent distress. HEAD: Normocephalic/atraumatic. EYES: Normal reaction of pupils, equal size. Conjunctiva pink, sclera white. NOSE: Clear with pink turbinates. THROAT: No erythema or exudates. NECK: No masses, no JVD, no thyroid enlargement, no adenopathy. CHEST: No chest wall deformity. Symmetrical expansion. LUNGS: Equal air entry with clear lung sounds CVS: Regular rate and rhythm, normal S1 and S2, no gallops, no murmurs, no rubs ABDOMEN: Soft, nontender. No hepatosplenomegaly, normal bowel sounds, no guarding or rigidity. EXTREMITIES: No clubbing, no edema, no cyanosis, 2+ pulses and upper and lower extremities. MUSCULOSKELETAL: Muscle strength and tone normal. SPINE: No scoliosis or deformity SKIN: No rashes CENTRAL NERVOUS SYSTEM: Alert and oriented -3. No focal deficits, tone is normal in all 4 extremities. PSYCHIATRIC: Alert and oriented -3. Appropriate affect. Intact judgment and insight. - Labs CBC & Chem 7: 11/11/17 07:10 11/10/17 06:56 Labs: Abnormal Lab Results - Last 24 Hours (Table) 11/10/17 11/10/17 11/11/17 Range/Units 17:21 20:22 07:10 Neutrophils # 9.1 H (1.3-7.7) k/uL Lymphocytes # 0.5 L (1.0-4.8) k/uL POC Glucose (mg/dL) 184 H 250 H (75-99) mg/dL 11/11/17 11/11/17 Range/Units 07:19 11:14 Neutrophils # (1.3-7.7) k/uL Lymphocytes # (1.0-4.8) k/uL POC Glucose (mg/dL) 223 H 222 H (75-99) mg/dL Microbiology - Last 24 Hours (Table) 11/09/17 08:45 Gram Stain - Final Sputum Sputum Culture - Final Assessment and Plan Plan: Assessment: 1 acute hypoxic respiratory failure secondary COPD exacerbation, and history of obstructive sleep apnea syndrome. And secondary to chronic scarring in the lingula with subsegmental atelectasis, pneumonia is not entirely ruled out but felt to be less likely based on the CT of the chest. [address] of the chest, the findings are mostly pointing to scarring and atelectasis, no clear-cut evidence of active pneumonia. 3 history of obstructive sleep apnea syndrome remains on his BiPAP. 4 history of chronic atrial fibrillation 5 history of coronary artery disease and previous stents 2 6 history of osteoarthritis. 7 history of hypercholesterolemia. 8 history of thoracic aortic aneurysm, 4.1 cm in size. Recommendation: Patient continues to improve, denies any worsening dyspnea, chest congestion or sputum production. Vital signs are stable, no acute events overnight. From pulmonary standpoint patient is stable for discharge home today. Follow up with Dr. Berumen in the office in one week. I performed a history & physical examination of the patient and discussed their management with my nurse practitioner, Lety Chaparro. I reviewed the nurse practitioner's note and agree with the documented findings and plan of care. Lung sounds are clear. The findings and the impression was discussed with the patient. I attest to the documentation by the nurse practitioner. Time with Patient: Less than 30
--- NOTE | 2017-11-15 16:15 | P.DS ---
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 Berumen with a previous medical history significant for a PD atrial fibrillation, hypertension and hypertensive cardiovascular disease, hyperlipidemia, obesity with LION,CAD and STEMI, requiring PCI RCA in 2016. Admitted to the emergency room secondary to COPD exacerbation. He had shortness of breath and difficulty breathing of 2 days' duration, cough productive of whitish sputum, no fever no chills, he was severely dyspneic when seen in the emergency room with significant bronchospasms. Emergency room, x-rays shows chronic pleural and pulmonary density left lower lobe consistent with scarring and chronic infiltrate that is unchanged to previous exam, lower lobe abnormalities worsen old x-ray February 2017, no CHF changes EKG shows sinus tachycardia heart rate of 108, PVCs, pulmonary disease pattern and nonspecific ST-T wave changes though bleed WBC count of 11.0, INR 1.2, creatinine 0.7. Sugar of 203 11/11: Patient was followed by pulmonary medicine during her stay. CT of the chest revealed chronic scarring in the lingula with subsegmental atelectasis present previously back in 2010. Chest x-ray findings were determined to be chronic and did not point to malignancy. Patient was cleared for discharge by pulmonary medicine. He is currently on oxygen at 2 L pulse 6093%. Hemoglobin A1c came back at 7.3. Discharge diagnoses 1. Acute hypoxic respiratory failure secondary to COPD exacerbation and obstructive sleep apnea with chronic scarring in the lingula and subsegmental atelectasis. 2. History non-ST elevation [place] post left heart catheterization and PCI of the RCA recently done in July 2017. 4. History of Paroxysmal atrial fibrillation currently sinus rhythm 5 New diagnoses of diabetes mellitus type 2. 6. Hypertension and hypertensive cardiovascular disease. 7. Hyperlipidemia. 8. Obesity with LION. 9. Abdominal Aortic Aneurysm under surveillance watch by . 10. Tobacco use and dependence in the form of chewing tobacco. Discharge plan: Return home Impression and plan of care have been directed as dictated by the signing physician. Joy Baxter nurse practitioner acting as scribe for signing physician. Patient Condition at Discharge: Good Plan - Discharge Summary Discharge Rx Participant: No New Discharge Prescriptions: New Budesonide-Formot 160-4.5 Mcg [Symbicort 160-4.5 Mcg Inhaler] 2 puff INHALATION RT-BID #1 inh guaiFENesin [Mucinex] 600 mg PO Q12HR tablet.er Levofloxacin [Levaquin] 750 mg PO DAILY #3 tab metFORMIN HCL [Glucophage] 1,000 mg PO BID #60 tab predniSONE 10 mg PO DAILY #60 tab Continue Atorvastatin [Lipitor] 80 mg PO HS #30 tab Clopidogrel [Plavix] 75 mg PO DAILY 30 Days tab Nitroglycerin Sl Tabs [Nitrostat] 0.4 mg SUBLINGUAL Q5M PRN #25 tab PRN Reason: Chest Pain Rivaroxaban [Xarelto] 15 mg PO W/SUPPER Albuterol Sulfate [Proair Hfa] 1 - 2 puff INHALATION RT-Q6H PRN PRN Reason: Shortness Of Breath Discharge Medication List Atorvastatin [Lipitor] 80 mg PO HS #30 tab 08/18/16 [Rx] Clopidogrel [Plavix] 75 mg PO DAILY 30 Days tab 08/18/16 [Rx] Nitroglycerin Sl Tabs [Nitrostat] 0.4 mg SUBLINGUAL Q5M PRN #25 tab 09/05/16 [Rx ] Rivaroxaban [Xarelto] 15 mg PO W/SUPPER 09/17/17 [History] Albuterol Sulfate [Proair Hfa] 1 - 2 puff INHALATION RT-Q6H PRN 11/07/17 [ History] Budesonide-Formot 160-4.5 Mcg [Symbicort 160-4.5 Mcg Inhaler] 2 puff INHALATION RT-BID #1 inh 11/11/17 [Rx] Levofloxacin [Levaquin] 750 mg PO DAILY #3 tab 11/11/17 [Rx] guaiFENesin [Mucinex] 600 mg PO Q12HR tablet.er 11/11/17 [Rx] metFORMIN HCL [Glucophage] 1,000 mg PO BID #60 tab 11/11/17 [Rx] predniSONE 10 mg PO DAILY #60 tab 11/11/17 [Rx] Follow up Appointment(s)/Referral(s): Trevin Lock MD [STAFF PHYSICIAN] - 11/28/17 3:00 pm Laron Holland DO [Primary Care Provider] - 1 Week (office will call with appointment) Discharge Disposition: HOME SELF-CARE
== END 2017-11-11 12:54 | disposition home or self-care (01) | DRG 190 ==
LOC: EC 19:02 → 6SEL 20:24 → 5ONC 11-09 16:53 → 5MS5E 11-10 19:42
PROVIDERS: ADMIT Family Medicine; ATTEND Family Medicine
PROC: 5A09357 Assistance with Respiratory Ventilation, Less than 24 Consecutive Hours, Continuous Positive Airway Pressure (ICD-10-PCS; principal; 2017-11-07)
DX: J44.1 Chronic obstructive pulmonary disease with (acute) exacerbation (principal); J18.9 Pneumonia, unspecified organism; J96.21 Acute and chronic respiratory failure with hypoxia; J98.11 Atelectasis; I48.0 Paroxysmal atrial fibrillation; I48.2 Chronic atrial fibrillation; I71.2 Thoracic aortic aneurysm, without rupture; I11.9 Hypertensive heart disease without heart failure; E87.5 Hyperkalemia; E66.01 Morbid (severe) obesity due to excess calories; E78.00 Pure hypercholesterolemia, unspecified; E78.5 Hyperlipidemia, unspecified; G47.33 Obstructive sleep apnea (adult) (pediatric); I25.10 Atherosclerotic heart disease of native coronary artery without angina pectoris; I25.2 Old myocardial infarction; J44.0 Chronic obstructive pulmonary disease with (acute) lower respiratory infection; K21.9 Gastro-esophageal reflux disease without esophagitis; M19.90 Unspecified osteoarthritis, unspecified site; R73.9 Hyperglycemia, unspecified; Z95.5 Presence of coronary angioplasty implant and graft; Z79.01 Long term (current) use of anticoagulants; Z79.02 Long term (current) use of antithrombotics/antiplatelets; Z79.82 Long term (current) use of aspirin; Z79.899 Other long term (current) drug therapy; Z88.0 Allergy status to penicillin; Z86.14 Personal history of Methicillin resistant Staphylococcus aureus infection; Z68.38 Body mass index [BMI] 38.0-38.9, adult; Z87.891 Personal history of nicotine dependence; Z99.81 Dependence on supplemental oxygen
CPT/HCPCS: 36415; 71045; 71250; 80053; 82550; 82553; 83036; 83735; 83880; 84484; 85025; 85610; 85730; 87070; 87205; 93005; 94640; 94660; 94760; 99291

== ENCOUNTER 2017-12-08 07:44 | Inpatient (IN) | payer MEDICARE ==
[2017-12-08] MEDS ORDERED: NITROGLYCERIN OINT 1 INCH/GM PACKET TOPICAL STA (08:01)
[2017-12-08] MEDS ORDERED: IPRATROPIUM-ALBUTEROL 3 ML NEB INHALATION STA ×2 (08:01→10:05)
--- NOTE | 2017-12-08 08:04 | ED ---
General Adult HPI - General Chief complaint: Chest Pain Stated complaint: Chest Pain Time Seen by Provider: 12/08/17 07:47 Source: patient, EMS, RN notes reviewed Mode of arrival: EMS Limitations: no limitations - History of Present Illness Initial comments: Patient is a pleasant 67-year-old male presenting to the emergency department complaining of chest discomfort. Onset was a couple hours ago. Patient has indigestion of his upper chest. Patient has a history of similar symptoms previously associated with cardiac stent placement. Patient does feel short of breath. Dyspnea is similar to previous COPD. No vomiting. No diaphoresis. Discomfort is mild at this time following nitroglycerin by EMS. - Related Data Home Medications Medication Instructions Recorded Confirmed Rivaroxaban [Xarelto] 15 mg PO W/SUPPER 09/17/17 11/07/17 Albuterol Sulfate [Proair Hfa] 1 - 2 puff INHALATION RT-Q6H PRN 11/07/17 Previous Rx's Medication Instructions Recorded Atorvastatin [Lipitor] 80 mg PO HS #30 tab 08/18/16 Clopidogrel [Plavix] 75 mg PO DAILY 30 Days tab 08/18/16 Nitroglycerin Sl Tabs [Nitrostat] 0.4 mg SUBLINGUAL Q5M PRN #25 tab 09/05/16 Budesonide-Formot 160-4.5 Mcg 2 puff INHALATION RT-BID #1 inh 11/11/17 [Symbicort 160-4.5 Mcg Inhaler] Levofloxacin [Levaquin] 750 mg PO DAILY #3 tab 11/11/17 guaiFENesin [Mucinex] 600 mg PO Q12HR tablet.er 11/11/17 metFORMIN HCL [Glucophage] 1,000 mg PO BID #60 tab 11/11/17 predniSONE 10 mg PO DAILY #60 tab 11/11/17 Allergies Allergy/AdvReac Type Severity Reaction Status Date / Time Penicillins Allergy Anaphylaxis Verified 11/07/17 19:27 Review of Systems ROS Statement: Those systems with pertinent positive or pertinent negative responses have been documented in the HPI. ROS Other: All systems not noted in ROS Statement are negative. Constitutional: Denies: fever Eyes: Denies: eye pain ENT: Denies: ear pain Respiratory: Reports: cough, dyspnea Cardiovascular: Reports: chest pain Endocrine: Reports: fatigue Gastrointestinal: Denies: abdominal pain Genitourinary: Denies: dysuria Musculoskeletal: Denies: back pain Skin: Denies: rash Neurological: Denies: headache Past Medical History Past Medical History: Atrial Fibrillation, Coronary Artery Disease (CAD), COPD, GERD/Reflux, Hyperlipidemia, Hypertension, Osteoarthritis (OA), Sleep Apnea/CPAP /BIPAP Additional Past Medical History / Comment(s): Thoracic aortic aneurysm 4.1 cm being monitored by Dr. Bennett, LION without device, PVCs, R leg phlebitis, past R wrist fx. Last Myocardial Infarction Date:: 08/17/16 History of Any Multi-Drug Resistant Organisms: MRSA Date of last positivie culture/infection: 2007 MDRO Source:: LEFT ARM Past Surgical History: Appendectomy, Heart Catheterization With Stent Additional Past Surgical History / Comment(s): Fracture surgery,right leg vein stripping. Past Anesthesia/Blood Transfusion Reactions: No Reported Reaction Date of Last Stent Placement:: 09/02/16 Past Psychological History: No Psychological Hx Reported Smoking Status: Former smoker Past Alcohol Use History: None Reported, Rare Past Drug Use History: None Reported - Past Family History Father Family Medical History: No Reported History Additional Family Medical History / Comment(s): in his 80's HAD HEART ISSUES Mother Family Medical History: No Reported History, Dementia Additional Family Medical History / Comment(s): Mother in her 80's Sister(s) Family Medical History: CVA/TIA Daughter(s) Family Medical History: No Reported History Son(s) Family Medical History: No Reported History General Exam Limitations: no limitations General appearance: alert, in no apparent distress Head exam: Present: atraumatic Eye exam: Present: normal appearance, PERRL ENT exam: Present: normal oropharynx Neck exam: Present: normal inspection Respiratory exam: Present: decreased breath sounds Cardiovascular Exam: Present: regular rate, normal rhythm Expanded Peripheral pulses: 2+: Radial (R), Radial (L), Dorsalis Pedis (R), Dorsalis Pedis (L) GI/Abdominal exam: Present: soft. Absent: tenderness Extremities exam: Present: pedal edema (Right lower leg). Absent: calf tenderness Back exam: Present: normal inspection Neurological exam: Present: alert Psychiatric exam: Present: normal affect, normal mood Skin exam: Present: normal color Course Vital Signs 12/08/17 12/08/17 12/08/17 07:45 07:56 08:16 Temperature 97.9 F Pulse Rate 97 84 Pulse Rate [ 96 Wash Test Checker ] Respiratory 22 22 Rate Blood Pressure 132/85 O2 Sat by Pulse 93 L Oximetry 12/08/17 12/08/17 08:26 09:20 Temperature Pulse Rate 84 98 Pulse Rate [ Wash Test Checker ] Respiratory 18 Rate Blood Pressure 128/58 O2 Sat by Pulse 93 L Oximetry EKG Findings - EKG Comments: EKG Findings:: Normal sinus rhythm 93. LA 134. QRS 94. QT 364. QTC 52. Normal axis. Normal QRS. No acute ST change. Medical Decision Making - Medical Decision Making Computed tomography scan reports reviewed from last month. Patient reevaluated and resting comfortably in bed. Patient family updated on results and plan. Case was discussed with Dr. Joy, who will admit for Dr. Holland. - Lab Data Result diagrams: 12/08/17 07:56 12/08/17 07:56 Lab Results 12/08/17 12/08/17 12/08/17 Range/Units 07:56 07:56 07:56 WBC 8.0 (3.8-10.6) k/uL RBC 4.19 L (4.30-5.90) m/uL Hgb 13.7 (13.0-17.5) gm/dL Hct 39.1 (39.0-53.0) % MCV 93.4 (80.0-100.0) fL MCH 32.8 (25.0-35.0) pg MCHC 35.1 (31.0-37.0) g/dL RDW 13.5 (11.5-15.5) % Plt Count 244 (150-450) k/uL Neutrophils % (Manual) 56 % Band Neutrophils % 2 % Lymphocytes % (Manual) 27 % Monocytes % (Manual) 12 % Eosinophils % (Manual) 2 % Basophils % (Manual) 1 % Neutrophils # (Manual) 4.60 (1.3-7.7) k/uL Lymphocytes # (Manual) 2.16 (1.0-4.8) k/uL Monocytes # (Manual) 0.96 (0-1.0) k/uL Eosinophils # (Manual) 0.16 (0-0.7) k/uL Basophils # (Manual) 0.08 (0-0.2) k/uL Nucleated RBCs 0 (0-0) /100 WBC RBC Morphology Normal PT (9.0-12.0) sec INR (<1.2) APTT (22.0-30.0) sec Sodium 134 L (137-145) mmol/L Potassium 4.1 (3.5-5.1) mmol/L Chloride 97 L (98-107) mmol/L Carbon Dioxide 28 (22-30) mmol/L Anion Gap 9 mmol/L BUN 14 (9-20) mg/dL Creatinine 0.83 (0.66-1.25) mg/dL Est GFR (CKD-EPI)AfAm >90 (>60 ml/min/1.73 sqM) Est GFR (CKD-EPI)NonAf >90 (>60 ml/min/1.73 sqM) Glucose 244 H (74-99) mg/dL Calcium 9.0 (8.4-10.2) mg/dL Magnesium 1.7 (1.6-2.3) mg/dL Total Bilirubin 2.5 H (0.2-1.3) mg/dL AST 36 (17-59) U/L ALT 61 (21-72) U/L Alkaline Phosphatase 64 (38-126) U/L Total Creatine Kinase 59 (55-170) U/L CK-MB (CK-2) 0.7 (0.0-2.4) ng/mL CK-MB (CK-2) Rel Index 1.2 Troponin I 0.012 (0.000-0.034) ng/mL NT-Pro-B Natriuret Pep pg/mL Total Protein 5.3 L (6.3-8.2) g/dL Albumin 3.0 L (3.5-5.0) g/dL Amylase 86 (30-110) U/L Lipase 421 H (23-300) U/L 12/08/17 12/08/17 Range/Units 07:56 07:56 WBC (3.8-10.6) k/uL RBC (4.30-5.90) m/uL Hgb (13.0-17.5) gm/dL Hct (39.0-53.0) % MCV (80.0-100.0) fL MCH (25.0-35.0) pg MCHC (31.0-37.0) g/dL RDW (11.5-15.5) % Plt Count (150-450) k/uL Neutrophils % (Manual) % Band Neutrophils % % Lymphocytes % (Manual) % Monocytes % (Manual) % Eosinophils % (Manual) % Basophils % (Manual) % Neutrophils # (Manual) (1.3-7.7) k/uL Lymphocytes # (Manual) (1.0-4.8) k/uL Monocytes # (Manual) (0-1.0) k/uL Eosinophils # (Manual) (0-0.7) k/uL Basophils # (Manual) (0-0.2) k/uL Nucleated RBCs (0-0) /100 WBC RBC Morphology PT 11.0 (9.0-12.0) sec INR 1.1 (<1.2) APTT 22.2 (22.0-30.0) sec Sodium (137-145) mmol/L Potassium (3.5-5.1) mmol/L Chloride (98-107) mmol/L Carbon Dioxide (22-30) mmol/L Anion Gap mmol/L BUN (9-20) mg/dL Creatinine (0.66-1.25) mg/dL Est GFR (CKD-EPI)AfAm (>60 ml/min/1.73 sqM) Est GFR (CKD-EPI)NonAf (>60 ml/min/1.73 sqM) Glucose (74-99) mg/dL Calcium (8.4-10.2) mg/dL Magnesium (1.6-2.3) mg/dL Total Bilirubin (0.2-1.3) mg/dL AST (17-59) U/L ALT (21-72) U/L Alkaline Phosphatase (38-126) U/L Total Creatine Kinase (55-170) U/L CK-MB (CK-2) (0.0-2.4) ng/mL CK-MB (CK-2) Rel Index Troponin I (0.000-0.034) ng/mL NT-Pro-B Natriuret Pep 133 pg/mL Total Protein (6.3-8.2) g/dL Albumin (3.5-5.0) g/dL Amylase (30-110) U/L Lipase (23-300) U/L Disposition Clinical Impression: Chest pain Disposition: ADMITTED IP TO THIS HOSP Referrals: Laron Holland DO [Primary Care Provider] - 1-2 days Decision Time: 10:07
[2017-12-08 08:12] LABS: HCT 39.1 % (39.0-53.0); HGB 13.7 gm/dL (13.0-17.5); MCH 32.8 pg (25.0-35.0); MCHC 35.1 g/dL (31.0-37.0); MCV 93.4 fL (80.0-100.0); Mean Platelet Volume 7.5; Platelet Count 244 k/uL (150-450); RBC 4.19 m/uL (4.30-5.90); RDW 13.5 % (11.5-15.5)
[2017-12-08 08:20] LABS: INR 1.1 (<1.2); Partial Thromboplastin Time 22.2 sec (22.0-30.0)
[2017-12-08 08:21] LABS: ALT 61 U/L (21-72); AST 36 U/L (17-59); Alkaline Phosphatase 64 U/L (38-126); Amylase 86 U/L (30-110); Anion Gap 9 mmol/L; Blood Urea Nitrogen 14 mg/dL (9-20); Carbon Dioxide 28 mmol/L (22-30); Chloride 97 mmol/L (98-107); Glucose 244 mg/dL (74-99); Lipase 421 U/L (23-300); Magnesium 1.7 mg/dL (1.6-2.3); Potassium 4.1 mmol/L (3.5-5.1); Sodium 134 mmol/L (137-145); Total Bilirubin 2.5 mg/dL (0.2-1.3); Total Protein 5.3 g/dL (6.3-8.2)
[2017-12-08 08:32] LABS: Band Neutrophils % 2 %; Basophils # (M) 0.08 k/uL (0-0.2); Eosinophils # (M) 0.16 k/uL (0-0.7); Lymphocytes # (M) 2.16 k/uL (1.0-4.8); Monocytes # (M) 0.96 k/uL (0-1.0); Neutrophils % (M) 56 %; Nucleated Red Blood Cells 0 /100 WBC (0-0); Total Cells Counted 100
[2017-12-08] MEDS: ASPIRIN 81 MG PO STA (08:33)
[2017-12-08 08:48] LABS: Creatine Kinase MB 0.7 ng/mL (0.0-2.4); Troponin I 0.012 ng/mL (0.000-0.034)
--- NOTE | 2017-12-08 08:51 | XR ---
EXAMINATION TYPE: XR chest 2V DATE OF EXAM: 12/08/2017 HISTORY: Chest Pain. REFERENCE: Previous study dated 11/28/2017. FINDINGS: The heart is not enlarged. The lungs are clear. There is some blunting of the left CP angle . I could not exclude a small effusion. IMPRESSION: I CANNOT EXCLUDE A SMALL LEFT-SIDED EFFUSION.
--- NOTE | 2017-12-08 09:55 | US ---
EXAMINATION TYPE: US venous doppler duplex LE RT DATE OF EXAM: 12/08/2017 9:49 AM COMPARISON: NONE CLINICAL HISTORY: swelling. Chest pain, right lower leg swelling, patient on blood thinners SIDE PERFORMED: Right TECHNIQUE: The lower extremity deep venous system is examined utilizing real time linear array sonog cesar with graded compression, doppler sonography and color-flow sonography. VESSELS IMAGED: External Iliac Vein (EIV) Common Femoral Vein Deep Femoral Vein Greater Saphenous Vein * Femoral Vein Popliteal Vein Small Saphenous Vein * Proximal Calf Veins (* superficial vessels) Right Leg: Appears negative for DVT No popliteal fossa lesion is seen. IMPRESSION: THIS EXAMINATION IS NEGATIVE FOR DVT WITHIN THE RIGHT LEG.
[2017-12-08] MEDS ORDERED: NITROGLYCERIN SL TABS 0.4 MG TAB SUBLINGUAL PRN (10:07)
[2017-12-08] MEDS: NITROGLYCERIN OINT 1 INCH/GM PACKET TOPICAL SCH ×2 (11:16→19:00)
--- NOTE | 2017-12-08 11:54 | CONS ---
CONSULTATION ATTENDING DOCTOR: Dr. Holland. Mr. Junior is a 67-year-old male who presented to the emergency room with symptoms of chest discomfort. He has a known history of coronary artery disease, has been followed by Dr. Moss in the past. He presented with a non ST-segment elevation myocardial infarction in July 2016 and at that time was found to have a critical stenosis involving the right coronary artery and the left circumflex. He underwent staged stenting done by Dr. Patel. He woke up with severe substernal chest discomfort that was different from his anginal pain. He was also more dyspneic. He is feeling well at this time. He denies any fever at home. He denies any dizziness or palpitation. He was admitted about a month ago to the hospital with exacerbation of his chronic obstructive lung disease. At that time, received steroids. He had pneumonia at that time. He has denies any fever home. He has some chronic peripheral edema on the right side. He denies any dizziness or palpitation. No syncope. His coronary risk factors are remarkable for remote history of smoking. He has a history of diabetes, hyperlipidemia. MEDICATION: At home included prednisone, Glucophage 1 g twice a day, Xarelto 15 mg daily, Plavix 75 mg daily, Lipitor 80 mg daily, and albuterol. REVIEW OF SYSTEMS: Respiratory system: He has history of chronic obstructive lung disease with severe limitation on activity with recent exacerbation, recent pneumonia. GI system: No recent GI bleed. No peptic ulcer disease. system no dysuria, hematuria. Nervous system: No stroke or seizure. PHYSICAL EXAMINATION: 67-year-old male, alert, oriented, with mild to moderate dyspnea. Blood pressure 116/60 with a heart rate in the 90s. HEAD: Normocephalic. Eyes sclerae anicteric. Neck good upstroke. No bruits. No jugular venous distention. LUNGS: With decreased air exchange bilaterally with scattered wheezes. Heart: regular rate and rhythm, S1, S2. No S3 with systolic murmur. No diastolic murmur. ABDOMEN: Soft, nontender, obese. Extremities +1 edema on the right side. Intact distal pulses. LAB DATA: EKG revealed a sinus mechanism, rate of 93 with small QS in and lead 3 and AVF suggestive of prior myocardial infarction. Troponin less than 0.012 for 1 sample. BUN and creatinine 14 and 0.83, potassium 4.1, hemoglobin of 13.7. Chest x-ray showed questionable small left-sided effusion. Duplex scan of the lower extremity revealed no evidence of DVT. IMPRESSION: 1. Symptoms of chest discomfort of unclear etiology. Has some atypical feature for ischemic heart disease, could be related to his lung status or gastrointestinal in origin. 2. History of coronary artery disease status post 2 vessel stenting done in July 2016 and August 2016. 3. History of chronic obstructive lung disease with recent pneumonia and exacerbation. 4. History of hyperlipidemia. 5. History of diabetes. RECOMMENDATION: From the cardiac standpoint, I will hold his Xarelto at this time. I will continue the rest of his medical regimen. He will continue on the Plavix. We will follow his cardiac enzymes. I will obtain echocardiogram with Doppler. Depending on his status and his symptoms, further recommendation will be made regarding the need to undergo further evaluation including coronary angiography. Thank you for this consult. We will follow with you. MMODL / IJN: [id number] /
[2017-12-08] MEDS ORDERED: NITROGLYCERIN OINT 1 INCH/GM PACKET TOPICAL SCH (12:00)
[2017-12-08 12:04] LABS: Glucose,Whole Blood 240 mg/dL (75-99)
[2017-12-08 12:33] VITALS: BMI 36.8
[2017-12-08] MEDS: PANTOPRAZOLE 40 MG TABLET PO SCH ×2 (12:33→19:12)
[2017-12-08 15:25] LABS: Creatine Kinase MB 0.9 ng/mL (0.0-2.4); Troponin I 0.013 ng/mL (0.000-0.034)
--- NOTE | 2017-12-08 19:54 | P.HPIM ---
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 Berumen with a previous medical history significant for a PD atrial fibrillation, hypertension and hypertensive cardiovascular disease, hyperlipidemia, obesity with LION,CAD and STEMI, requiring PCI RCA in 2016. Admitted to the emergency room secondary to chest pain He had awoken from his sleep, severe chest discomfort, lasted 1-1/2 hours, no relief with Rolaids and Tums, he was subsequently seen in the emergency room with relief using nitroglycerin. There was no radiation of the pain, patient has chronic dyspnea on exertion, patient denies any PND or lower extremity edema , pain was substernal in location different from his usual anginal pain. His last stress test was last year, follows with Dr. Moss patient denies any dyspepsia or dysphagia, In the emergency room EKG shows normal sinus rhythm without any ST-T wave changes troponin is normal on 0.01 2.013, blood sugars slightly elevated between 222 240, lipase 421 elevated. Last hemoglobin A1c of 7.3 11/07/2017 Review of Systems Constitutional: Reports as per HPI, Denies anorexia, Denies chills, Denies chronic headaches, Denies chronic pain, Denies daytime sleepiness, Denies fatigue, Denies fever, Denies lethargy, Denies malaise, Denies night sweats, Denies poor appetite, Denies sweats, Denies weakness, Denies weight gain, Denies weight loss Ears, nose, mouth and throat: Reports as per HPI, Denies ant. neck pain, Denies bleeding gums, Denies dental pain, Denies dysphagia, Denies epistaxis, Denies headache, Denies hoarseness, Denies mouth pain, Denies nasal congestion, Denies nasal discharge, Denies neck fullness/pressure, Denies neck lump, Denies nose pain, Denies odynophagia, Denies post-nasal drip, Denies sinus pain, Denies sinus pressure, Denies swelling in mouth, Denies swelling in throat, Denies sore throat, Denies vertigo, Denies voice changes Cardiovascular: Reports as per HPI, Reports chest pain, Reports decreased exercise tolerance, Reports dyspnea on exertion Respiratory: Reports as per HPI, Denies congestion, Denies cough, Denies cough with sputum, Denies dyspnea, Denies excessive sputum, Denies hemoptysis, Denies home oxygen, Denies pain, Denies pain on inspiration, Denies pleurisy, Denies respiratory infections, Denies sleep apnea, Denies snoring, Denies wheezing Gastrointestinal: Reports as per HPI, Denies abdominal pain, Denies belching, Denies bloating, Denies BRBPR, Denies change in bowel habits, Denies coffee ground emesis, Denies constipation, Denies diarrhea, Denies dyspepsia, Denies early satiety, Denies excessive gas, Denies heartburn, Denies hematemesis, Denies hematochezia, Denies indigestion, Denies jaundice, Denies lactose intolerance, Denies loss of appetite, Denies melena, Denies nausea, Denies vomiting Genitourinary: Reports as per HPI, Denies decreased libido, Denies difficulties fathering child, Denies discharge, Denies dysuria, Denies erectile dysfunction, Denies flank pain, Denies genital pain, Denies genital sores, Denies hematuria, Denies impotence, Denies incontinence, Denies kidney stones, Denies nocturia, Denies polyuria, Denies testicular lump, Denies testicular pain, Denies urinary frequency, Denies urinary hesitancy, Denies urinary retention Musculoskeletal: Reports as per HPI, Denies arm numbness/tingling, Denies atrophy, Denies fractures, Denies frequent falls, Denies gait dysfunction, Denies hot joints, Denies leg numbness/tingling, Denies limitation of motion, Denies loss of height, Denies low back pain, Denies morning stiffness, Denies muscle cramps, Denies muscle weakness, Denies myalgias, Denies neck pain, Denies neck stiffness, Denies prior amputations, Denies redness of joints, Denies shooting arm pain, Denies shooting leg pain Integumentary: Reports as per HPI, Denies acne, Denies boils, Denies brittle nails, Denies change in hair/nails, Denies color changes, Denies darkening of skin, Denies depigmentation, Denies dryness, Denies foot/leg ulcers, Denies growths, Denies hirsutism, Denies lesions, Denies onychomycosis, Denies pruritus , Denies rash, Denies sores, Denies striae, Denies unusual bruising, Denies wounds Neurological: Reports as per HPI, Denies aphasia, Denies ataxia, Denies balance difficulties, Denies burning pain, Denies change in mentation, Denies change in smell/taste, Denies change in speech, Denies confusion, Denies convulsions, Denies double vision, Denies gait dysfunction, Denies head injury, Denies headaches, Denies hearing difficulties, Denies lack of coordination, Denies loss of vision, Denies memory loss, Denies migraines, Denies motor disturbance, Denies numbness, Denies paralysis, Denies paresthesias, Denies seizures, Denies sensory deficit, Denies spasticity, Denies syncope, Denies tic, Denies tingling , Denies transient paralysis, Denies tremors, Denies vertigo, Denies weakness, Denies visual changes Psychiatric: Reports as per HPI, Denies anhedonia, Denies anxiety, Denies anxiety attacks, Denies change in appetite, Denies change in libido, Denies change in sleep habits, Denies confusion, Denies depression, Denies difficulty concentrating, Denies disorientation, Denies hallucinations, Denies hopelessness , Denies hypersomnia, Denies insomnia, Denies irritability, Denies memory loss, Denies mood swings, Denies paranoia, Denies sadness/tearfulness, Denies sleep disturbances, Denies suicidal ideation Endocrine: Reports as per HPI, Denies cold intolerance, Denies deepening of the voice, Denies excessive sweating, Denies excessive thirst, Denies fatigue, Denies flushing, Denies heat intolerance, Denies high blood sugars, Denies increase in ring/shoe/hat size, Denies low blood sugars, Denies nocturia, Denies palpitations, Denies polydipsia, Denies polyphagia, Denies polyuria, Denies proptosis, Denies recent glucocorticoid use, Denies thyroid mass, Denies weight change Hematologic/Lymphatic: Reports as per HPI, Denies easy bleeding, Denies easy bruising, Denies lymphadenopathy, Denies lymphedema, Denies thrombophilia Allergic/Immunologic: Reports as per HPI, Denies allergic rhinitis, Denies anaphylaxis, Denies angioedema, Denies gluten intolerance, Denies persistent infections, Denies seasonal allergies, Denies urticaria, Denies wheezing Past Medical History Past Medical History: Atrial Fibrillation, Coronary Artery Disease (CAD), COPD, GERD/Reflux, Hyperlipidemia, Hypertension, Myocardial Infarction (PA), Osteoarthritis (OA), Sleep Apnea/CPAP/BIPAP Additional Past Medical History / Comment(s): Thoracic aortic aneurysm 4.1 cm being monitored by Dr. Bennett, LION without device, PVCs, R leg phlebitis, past R wrist fx. Last Myocardial Infarction Date:: 08/17/16 History of Any Multi-Drug Resistant Organisms: MRSA Date of last positivie culture/infection: 2007 MDRO Source:: LEFT ARM Past Surgical History: Appendectomy, Heart Catheterization With Stent Additional Past Surgical History / Comment(s): Fracture left wrist surgery, right leg vein stripping. Past Anesthesia/Blood Transfusion Reactions: No Reported Reaction Date of Last Stent Placement:: 09/02/16 Past Psychological History: No Psychological Hx Reported Additional Psychological History / Comment(s): Pt resides with spouse. He is independent. Smoking Status: Former smoker Past Alcohol Use History: None Reported, Rare Additional Past Alcohol Use History / Comment(s): Pt started smoking as a teen and quit in 2005. He USED occasionally chew tobacco. Past Drug Use History: None Reported - Past Family History Father Family Medical History: No Reported History Additional Family Medical History / Comment(s): in his 80's HAD HEART ISSUES Mother Family Medical History: No Reported History, Dementia Additional Family Medical History / Comment(s): Mother in her 80's Sister(s) Family Medical History: CVA/TIA Daughter(s) Family Medical History: No Reported History Son(s) Family Medical History: No Reported History Medications and Allergies Home Medications Medication Instructions Recorded Confirmed Type Atorvastatin [Lipitor] 80 mg PO HS #30 tab 08/18/16 12/08/17 Rx Clopidogrel [Plavix] 75 mg PO DAILY 30 Days tab 08/18/16 12/08/17 Rx Albuterol Sulfate [Proair Hfa] 1 - 2 puff INHALATION RT-Q6H PRN 11/07/17 History Budesonide-Formot 160-4.5 Mcg 2 puff INHALATION RT-BID #1 inh 11/11/17 12/08/17 Rx [Symbicort 160-4.5 Mcg Inhaler] Albuterol Nebulized [Ventolin 2.5 mg INHALATION RT-QID PRN 12/08/17 12/08/17 History Nebulized] Allergies Allergy/AdvReac Type Severity Reaction Status Date / Time Penicillins Allergy Anaphylaxis Verified 12/08/17 11:34 Physical Exam Vitals: Vital Signs Temp Pulse Pulse Pulse Resp BP BP 12/08/17 10:45 97.7 F 64 20 139/69 12/08/17 10:41 97.9 F 105 H 18 116/61 12/08/17 10:39 105 H 12/08/17 10:28 109 H 18 116/61 12/08/17 10:25 105 H 12/08/17 09:20 98 18 128/58 12/08/17 08:26 84 12/08/17 08:16 84 12/08/17 07:56 96 22 12/08/17 07:45 97.9 F 97 22 132/85 Pulse Ox 12/08/17 10:45 95 12/08/17 10:41 94 L 12/08/17 10:39 12/08/17 10:28 94 L 12/08/17 10:25 12/08/17 09:20 93 L 12/08/17 08:26 12/08/17 08:16 12/08/17 07:56 12/08/17 07:45 93 L Intake and Output 12/07/17 12/08/17 12/08/17 22:59 06:59 14:59 Other: Weight 123 kg - Constitutional General appearance: cooperative, no acute distress, obese - EENT Eyes: anicteric sclerae, EOMI, PERRLA, dentition normal, normal appearance ENT: NA/AT, normal oropharynx - Neck Neck: normal ROM - Respiratory Respiratory: bilateral: CTA, negative: diminished, dullness, wheezing, prolonged expiration, prolonged inspiration - Cardiovascular Rhythm: regular Heart sounds: normal: S1, S2 Abnormal Heart Sounds: no systolic murmur, no diastolic murmur, no rub, no S3 Gallop, no S4 Gallop, no click, no other - Gastrointestinal General gastrointestinal: normal bowel sounds, soft - Integumentary Integumentary: decreased turgor, normal - Neurologic Neurologic: CNII-XII intact - Musculoskeletal Musculoskeletal: gait normal, strength equal bilaterally - Psychiatric Psychiatric: A&O x's 3, appropriate affect, intact judgment & insight Results CBC & Chem 7: 12/08/17 07:56 12/08/17 07:56 Labs: Abnormal Lab Results - Last 24 Hours (Table) 12/08/17 12/08/17 12/08/17 Range/Units 07:56 07:56 11:55 RBC 4.19 L (4.30-5.90) m/uL Sodium 134 L (137-145) mmol/L Chloride 97 L (98-107) mmol/L Glucose 244 H (74-99) mg/dL POC Glucose (mg/dL) 240 H (75-99) mg/dL Total Bilirubin 2.5 H (0.2-1.3) mg/dL Total Protein 5.3 L (6.3-8.2) g/dL Albumin 3.0 L (3.5-5.0) g/dL Lipase 421 H (23-300) U/L Laboratory Results WBC 8.0 k/uL (3.8-10.6) 12/08/17 07:56 RBC 4.19 m/uL (4.30-5.90) L 12/08/17 07:56 Hgb 13.7 gm/dL (13.0-17.5) 12/08/17 07:56 Hct 39.1 % (39.0-53.0) 12/08/17 07:56 MCV 93.4 fL (80.0-100.0) 12/08/17 07:56 MCH 32.8 pg (25.0-35.0) 12/08/17 07:56 MCHC 35.1 g/dL (31.0-37.0) 12/08/17 07:56 RDW 13.5 % (11.5-15.5) 12/08/17 07:56 Plt Count 244 k/uL (150-450) 12/08/17 07:56 Neutrophils % (Manual) 56 % 12/08/17 07:56 Band Neutrophils % 2 % 12/08/17 07:56 Lymphocytes % (Manual) 27 % 12/08/17 07:56 Monocytes % (Manual) 12 % 12/08/17 07:56 Eosinophils % (Manual) 2 % 12/08/17 07:56 Basophils % (Manual) 1 % 12/08/17 07:56 Neutrophils # (Manual) 4.60 k/uL (1.3-7.7) 12/08/17 07:56 Lymphocytes # (Manual) 2.16 k/uL (1.0-4.8) 12/08/17 07:56 Monocytes # (Manual) 0.96 k/uL (0-1.0) 12/08/17 07:56 Eosinophils # (Manual) 0.16 k/uL (0-0.7) 12/08/17 07:56 Basophils # (Manual) 0.08 k/uL (0-0.2) 12/08/17 07:56 Nucleated RBCs 0 /100 WBC (0-0) 12/08/17 07:56 RBC Morphology Normal 12/08/17 07:56 PT 11.0 sec (9.0-12.0) 12/08/17 07:56 INR 1.1 (<1.2) 12/08/17 07:56 APTT 22.2 sec (22.0-30.0) 12/08/17 07:56 Sodium 134 mmol/L (137-145) L 12/08/17 07:56 Potassium 4.1 mmol/L (3.5-5.1) 12/08/17 07:56 Chloride 97 mmol/L (98-107) L 12/08/17 07:56 Carbon Dioxide 28 mmol/L (22-30) 12/08/17 07:56 Anion Gap 9 mmol/L 12/08/17 07:56 BUN 14 mg/dL (9-20) 12/08/17 07:56 Creatinine 0.83 mg/dL (0.66-1.25) 12/08/17 07:56 Est GFR (CKD-EPI)AfAm >90 (>60 ml/min/1.73 sqM) 12/08/17 07:56 Est GFR (CKD-EPI)NonAf >90 (>60 ml/min/1.73 sqM) 12/08/17 07:56 Glucose 244 mg/dL (74-99) H 12/08/17 07:56 POC Glucose (mg/dL) 240 mg/dL (75-99) H 12/08/17 11:55 POC Glu Resistor Inspector Elva Myers 12/08/17 11:55 Calcium 9.0 mg/dL (8.4-10.2) 12/08/17 07:56 Magnesium 1.7 mg/dL (1.6-2.3) 12/08/17 07:56 Total Bilirubin 2.5 mg/dL (0.2-1.3) H 12/08/17 07:56 AST 36 U/L (17-59) 12/08/17 07:56 ALT 61 U/L (21-72) 12/08/17 07:56 Alkaline Phosphatase 64 U/L (38-126) 12/08/17 07:56 Total Creatine Kinase 56 U/L (55-170) 12/08/17 14:07 CK-MB (CK-2) 0.9 ng/mL (0.0-2.4) 12/08/17 14:07 CK-MB (CK-2) Rel Index 1.6 12/08/17 14:07 Troponin I 0.013 ng/mL (0.000-0.034) 12/08/17 14:07 NT-Pro-B Natriuret Pep 133 pg/mL 12/08/17 07:56 Total Protein 5.3 g/dL (6.3-8.2) L 12/08/17 07:56 Albumin 3.0 g/dL (3.5-5.0) L 12/08/17 07:56 Amylase 86 U/L (30-110) 12/08/17 07:56 Lipase 421 U/L (23-300) H 12/08/17 07:56 Thrombosis Risk Factor Assmnt - DVT/VTE Prophylaxis DVT/VTE Prophylaxis: Pharmacologic Prophylaxis ordered - Choose All That Apply Each Factor Represents 1 point: Abnormal pulmonary function (COPD), Obesity ( BMI >25) Each Risk Factor Represents 2 Points: Age 61-74 years Thrombosis Risk Factor Assessment Total Risk Factor Score: 4 Thrombosis Risk Factor Assessment Level: Moderate Risk Assessment and Plan Plan: 1. Acute substernal chest pain prolonged atypical in nature, known history of CAD, however chest discomfort relieved with nitroglycerin without any dysphagia complaints or abdominal dysphagia, lipase elevated signifying mild pancreatitis , patient will be seen by cardiology, patient's on Nitropaste, Plavix, and Lipitor patient is not on any beta giovani from home, this will be initiated 25 mg twice a day metoprolol. Echocardiogram requested 2. History of Left lower lobe abnormality chronic pleural and pulmonary density left lower lobe w follows with Dr. Berumen outpatient 3. History non-ST elevation PA post left heart catheterization and PCI of the RCA recently done in 2016. Continue aspirin 81 mg orally once every day, Plavix 75 mg orally once every day, metoprolol 25 bid, Lipitor 80 mg orally once every day. 4. History of Paroxysmal atrial fibrillation currently sinus rhythm , patient has been on Xarelto. Patient is not on any beta giovani during admission home this will be initiated 5 diabetes mellitus type 2 with last A1c of 7.4 last 09/2017 counseled regarding importance off dietary adherence to low carb, high-protein low-fat diet, Accu-Cheks metformin to be initiated at 850 mg daily 7. Hyperlipidemia. continue Lipitor 80 mg orally once every day. Lipid management with diet 8. Obesity with LION. will continue with CPAP. 9. Abdominal Aortic Aneurysm.under surveillance watch by . 10. Tobacco use and dependence in the form of chewing tobacco.abstinence from nicotine recommended. 11Obstructive sleep apnea, has CPAP device at home O2 supplementation 24 7 12. DVT prophylaxis.on Xarelto 50 mg chronically. 13. GI prophylaxis .will continue with protonix 40 mg orally once a day. 14. Observation status, anticipate discharge in the morning pending cardiology evaluation for either stress test or cardiac cath.
[2017-12-08 20:32] LABS: Creatine Kinase 55 U/L (55-170)
[2017-12-08 20:45] LABS: Troponin I <0.012 ng/mL (0.000-0.034)
[2017-12-08] MEDS: ATORVASTATIN 80 MG TAB PO SCH (22:17)
[2017-12-08] MEDS: METOPROLOL TARTRATE 25 MG TAB PO SCH (22:17)
[2017-12-08] MEDS: SYMBICORT 160-4.5 MCG INHALER INHALATION SCH (22:23)
[2017-12-08] MEDS: ALBUTEROL NEBULIZED 2.5 MG/3 ML INHALATION PRN (22:24)
[2017-12-09 00:17] LABS: Hemoglobin A1C 7.4 % (4.0-6.0)
[2017-12-09] MEDS: ALBUTEROL NEBULIZED 2.5 MG/3 ML INHALATION PRN ×2 (00:28→12:41)
[2017-12-09] MEDS ORDERED: ALPRAZolam 0.5 MG TAB PO PRN (00:29)
[2017-12-09] MEDS ORDERED: ALPRAZolam 0.5 MG TAB PO STA (00:29)
[2017-12-09] MEDS ORDERED: HEPARIN SODIUM,PORCINE 5,000 UNIT/ML 1 ML VIAL SQ STA (00:31)
[2017-12-09] MEDS ORDERED: methylPREDNISolone SOD SUCCI 125 MG/2 ML VIAL IV STA (00:32)
[2017-12-09] MEDS ORDERED: FUROSEMIDE 10 MG/ML 4 ML VIAL IV STA (00:36)
[2017-12-09] MEDS: NITROGLYCERIN OINT 1 INCH/GM PACKET TOPICAL SCH ×3 (01:44→18:12)
[2017-12-09 02:11] LABS: Mean Platelet Volume 7.7; Platelet Count 229 k/uL (150-450)
[2017-12-09 02:24] LABS: Cholesterol 124 mg/dL (<200); HDL Cholesterol 42 mg/dL (40-60); LDL Cholesterol,Calculated 65 mg/dL (0-99); Triglycerides 86 mg/dL (<150)
[2017-12-09] MEDS ORDERED: RX INFO: IV CONTRAST WAS GIVEN 1 EACH MISC MISCELLANE PRN ×2 (02:24→09:33)
--- NOTE | 2017-12-09 03:22 | CT ---
EXAMINATION TYPE: CT angio chest DATE OF EXAM: 12/09/2017 3:10 AM COMPARISON: NONE HISTORY: chest pain, diaphoresis, SOB, elevated d-dimer R/O PE CT DLP: 977.20 mGycm Automated exposure control for dose reduction was used. CONTRAST: CTA scan of the thorax is performed with IV Contrast, patient injected with 100 mL of Isovue 370, pul monary embolism protocol. There are 3-D post processed images.. FINDINGS: There is mild pulmonary emphysema. There is some reticular linear density in the lingula left upper l obe. There is no evidence of a pulmonary mass. There is no pleural effusion. There is no pericardial effusion. There is no evidence of aortic aneurysm or dissection. I see no mediastinal adenopathy. I see no fill ing defects in the pulmonary arteries. There is normal contrast opacification of the pulmonary arteri es. There is minimal atheromatous change in the thoracic aorta. Heart size is normal. The bony thorax is intact. IMPRESSION: MILD PULMONARY EMPHYSEMA. MINIMAL CHRONIC DENSITY IN THE [place] LEFT UPPER LOBE CONSISTENT WITH SCAR RING THAT IS SIMILAR TO OLD CHEST CT SCAN OF 11/08/2017. NO EVIDENCE OF PULMONARY EMBOLISM.
[2017-12-09] MEDS: methylPREDNISolone SOD SUCCI 125 MG/2 ML VIAL IV SCH ×4 (05:48→22:17)
[2017-12-09] MEDS: ALPRAZolam 0.5 MG TAB PO PRN ×2 (05:48→22:17)
[2017-12-09] MEDS: SYMBICORT 160-4.5 MCG INHALER INHALATION SCH (07:51)
[2017-12-09] MEDS ORDERED: SODIUM CHLORIDE 0.9% 1,000 ML in EMPTY BAG 1 BAG IV ONE (08:29)
[2017-12-09] MEDS ORDERED: ASPIRIN 81 MG PO STA (08:31)
[2017-12-09] MEDS: ASPIRIN 81 MG PO STA (08:40)
[2017-12-09] MEDS ORDERED: IV FLUID CONTINUATION 950 ML IV ONE (08:50)
[2017-12-09] MEDS ORDERED: ASPIRIN 325 MG TAB PO SCH (09:00)
[2017-12-09] MEDS ORDERED: LIDOCAINE 2% INJ 20 MG/ML SQ ONE (09:14)
[2017-12-09] MEDS ORDERED: fentaNYL (PF) 50 MCG/ML 2 ML AMP IV ONE (09:18)
[2017-12-09] MEDS ORDERED: IOPAMIDOL-370 125ML BTL INJ ONE (09:28)
--- NOTE | 2017-12-09 10:17 | ECHOF ---
Referral Reason:cad MEASUREMENTS -------- HEIGHT: 180.3 cm WEIGHT: 122.9 kg BP: 107/46 RVIDd: 3.4 cm (< 3.3) IVSd: 1.0 cm (0.6 - 1.1) LVIDd: 4.7 cm (3.9 - 5.3) LVPWd: 1.4 cm (0.6 - 1.1) IVSs: 1.4 cm LVIDs: 2.6 cm LVPWs: 1.1 cm Ao Diam: 3.8 cm (2.0 - 3.7) AV Cusp: 2.1 cm (1.5 - 2.6) LA Diam: 3.4 cm (2.7 - 3.8) MV EXCURSION: 18.134 mm (> 18.000) MV EF SLOPE: 41 mm/s (70 - 150) EPSS: 0.7 cm MV E Jerry: 0.55 m/s MV DecT: 216 ms MV A Jerry: 0.72 m/s MV E/A Ratio: 0.76 RAP: 5.00 mmHg RVSP: 34.99 mmHg FINDINGS -------- Sinus rhythm. This was a technically difficult study with suboptimal views. The left ventricular size is normal. There is borderline concentric left ventricular hypertrophy. Overall left ventricular systolic function is low-normal with, an EF between 50 - 55 %. Basal infe rior LV wall motion is hypokinetic. Basal inferoseptal LV wall motion is hypokinetic. The right ventricle is mildly enlarged. The left atrium is normal in size. The right atrium is normal in size. Lumason used The aortic valve is trileaflet, and appears structurally normal. No aortic stenosis or regurgitation. The mitral valve leaflets are mildly thickened. There is trace mitral regurgitation. Trace tricuspid regurgitation present. The right ventricular systolic pressure, as measured by Dopp ler, is 34.99mmHg. Pulmonic valve appears structurally normal. The aortic root is mildy dilated. The pericardium is normal. CONCLUSIONS -------- 1. Sinus rhythm. 2. This was a technically difficult study with suboptimal views. 3. The left ventricular size is normal. 4. There is borderline concentric left ventricular hypertrophy. 5. Overall left ventricular systolic function is low-normal with, an EF between 50 - 55 %. 6. Basal inferior LV wall motion is hypokinetic. 7. Basal inferoseptal LV wall motion is hypokinetic. 8. The right ventricle is mildly enlarged. 9. The left atrium is normal in size. 10. The right atrium is normal in size. 11. Lumason used 12. The aortic valve is trileaflet, and appears structurally normal. No aortic stenosis or regurgitat ion. 13. The mitral valve leaflets are mildly thickened. 14. There is trace mitral regurgitation. 15. Trace tricuspid regurgitation present. 16. The right ventricular systolic pressure, as measured by Doppler, is 34.99mmHg. 17. Pulmonic valve appears structurally normal. 18. The aortic root is mildy dilated. 19. The pericardium is normal. LIGHTING DESIGNER: Candida Rose RDCS
--- NOTE | 2017-12-09 10:28 | PN ---
PROGRESS NOTE Laron is a 67-year-old gentleman with history of coronary artery disease, status post multivessel angioplasty, who presented to hospital complaining of shortness of breath and chest discomfort. He ruled out for myocardial infarction. EKG does not reveal acute ischemic changes. D-dimer was elevated. He had a CT scan of the chest that was negative for pulmonary embolism. Given the symptoms of unexplained chest pain and shortness of breath and known multivessel CAD, I advised the patient to undergo cardiac catheterization. He had been explained of risks, benefits and alternatives, understood and accepted. MMODL / IJN: [id number] /
--- NOTE | 2017-12-09 10:31 | CC ---
CARDIAC CATHETERIZATION REPORT INDICATION: Unstable angina. Laron is a 67-year-old gentleman with history of coronary artery disease, status post prior angioplasty of [place] circumflex coronary artery and right coronary artery, who presented to hospital with symptoms of exertion, shortness of breath and chest pain. He ruled out for myocardial infarction, had an elevated D-dimer. A CT scan of the chest was negative for pulmonary embolism. Given the known CAD and the unexplained symptoms, he was advised to undergo cardiac catheterization. He had been explained of risks, benefits and alternatives. PROCEDURE NOTE: After obtaining informed consent, left heart catheterization and coronary angiogram were performed via the right femoral artery using standard Rita catheters. The patient tolerated the procedure well without any obvious immediate complications. A femoral angiogram was obtained and decision was was made for manual hemostasis. Patient received moderate conscious sedation and the total sedation time was 15 minutes. FINDINGS: 1. HEMODYNAMICS: Left ventricular end-diastolic pressure is 8 to 10 mm. There is no significant gradient across the aortic valve. 2. LEFT VENTRICULOGRAM: Left ventriculogram is not performed. 3. ANGIOGRAPHIC DATA: 4. Left main coronary artery: Left main coronary artery is a normal-sized vessel and is free of stenosis. Divides into left anterior descending coronary artery and circumflex coronary artery. Circumflex coronary artery was previously stented and the stented segment appears patent. LAD shows a mild atherosclerotic plaque in its proximal portion. There are collaterals from the left to the distal right. Right coronary artery was previously stented in the proximal part. The stent is patent. There is mild nonobstructive disease involving the mid RCA and distal RCA, but these lesions seem similar to the lesions noted on the previous catheterization in 2017. CONCLUSIONS: Patent stents within the left anterior descending artery and the right coronary artery with mild to moderate nonobstructive disease involving mid and distal right coronary artery and proximal left anterior descending artery. I reviewed angiographic data with the patient and told him that the management is going to be with medical therapy and risk factor modification. We should be able to let him go home later this afternoon and have outpatient followup through my office. MMODL / BATOOLN: [id number] /
[2017-12-09] MEDS: metFORMIN 850 MG TAB PO SCH (12:38)
[2017-12-09] MEDS: HEPARIN SODIUM,PORCINE 5,000 UNIT/ML 1 ML VIAL SQ SCH ×3 (12:39→22:16)
[2017-12-09] MEDS: ASPIRIN 81 MG PO SCH (12:42)
--- NOTE | 2017-12-09 14:00 | P.PN ---
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 Berumen with a previous medical history significant for a PD atrial fibrillation, hypertension and hypertensive cardiovascular disease, hyperlipidemia, obesity with LION, CAD and STEMI, requiring PCI RCA in 2016. Admitted to the emergency room secondary to chest pain He had awoken from his sleep, severe chest discomfort, lasted 1-1/2 hours, no relief with Rolaids and Tums, he was subsequently seen in the emergency room with relief using nitroglycerin. There was no radiation of the pain, patient has chronic dyspnea on exertion, patient denies any PND or lower extremity edema , pain was substernal in location different from his usual anginal pain. His last stress test was last year, follows with Dr. Moss patient denies any dyspepsia or dysphagia, In the emergency room EKG shows normal sinus rhythm without any ST-T wave changes troponin is normal on 0.01 2.013, blood sugars slightly elevated between 222 240, lipase 421 elevated. Last hemoglobin A1c of 7.3 11/07/201712/09: Patient was evaluated today, patient's family is at the bedside. He was just getting back from his cardiac cath. He had a CT of the chest that was negative for pulmonary embolism. Due to his chest pain, shortness of breath and multivessel CAD, Dr. Guy suggested cardiac catheterization. Cardiac cath showed patent stents within the left anterior descending artery and the right coronary artery, mild to moderate nonobstructive disease involving the mid and distal right coronary artery and proximal left anterior descending artery. No hematoma or bleeding noted to cath site. Hemoglobin A1c noted to be 7.4, he was started on Glucophage. He complaints of a cough and fever with chills, low- grade temp of 99 noted yesterda, will treat for tracheobronchitis with doxycycline. Will anticipate discharge tomorrow. Objective - Vital Signs Vital signs: Vital Signs Temp 99.0 F 12/09/17 04:00 Pulse 82 12/09/17 12:52 Resp 16 12/09/17 10:15 BP 103/56 12/09/17 10:15 Pulse Ox 96 12/09/17 10:15 Intake & Output 12/08/17 12/09/17 12/09/17 18:59 06:59 18:59 Intake Total 400 Balance 400 Weight 123 kg 123 kg Intake: IV 100 Intake, IV Titration 300 Amount Sodium Chloride 0.9% 1, 300 000 ml In Empty Bag 1 bag @ 1 ML/KG/HR 123 mls/hr IV .Q8H8M ONE Rx#: [id number] Other: Voiding Method Toilet Urinal Urinal # Voids 1 2 - Exam - Constitutional General appearance: cooperative, no acute distress, obese - EENT Eyes: anicteric sclerae, EOMI, PERRLA, dentition normal, normal appearance ENT: NA/AT, normal oropharynx - Neck Neck: normal ROM - Respiratory Respiratory: bilateral: CTA, negative: diminished, dullness, wheezing, prolonged expiration, prolonged inspiration - Cardiovascular Rhythm: regular Heart sounds: normal: S1, S2 Abnormal Heart Sounds: no systolic murmur, no diastolic murmur, no rub, no S3 Gallop, no S4 Gallop, no click, no other - Gastrointestinal General gastrointestinal: normal bowel sounds, soft - Integumentary Integumentary: decreased turgor, normal - Neurologic Neurologic: CNII-XII intact - Musculoskeletal Musculoskeletal: gait normal, strength equal bilaterally - Psychiatric Psychiatric: A&O x's 3, appropriate affect, intact judgment & insight - Labs CBC & Chem 7: 12/09/17 06:00 12/08/17 07:56 Labs: Abnormal Lab Results - Last 24 Hours (Table) 12/08/17 12/09/17 Range/Units 14:07 01:13 D-Dimer 3.33 H (<0.60) mg/L FEU Hemoglobin A1c 7.4 H (4.0-6.0) % Assessment and Plan Plan: 1. Acute substernal chest pain prolonged atypical in nature, known history of CAD, however chest discomfort relieved with nitroglycerin without any dysphagia complaints or abdominal dysphagia, lipase elevated signifying mild pancreatitis , patient will be seen by cardiology, patient's on Nitropaste, Plavix, and Lipitor patient is not on any beta giovani from home, this will be initiated 25 mg twice a day metoprolol. Cardiac cath completed, shows patent stents within the left anterior descending artery in the right coronary artery with mild to moderate nonobstructive disease. 2. History of Left lower lobe abnormality chronic pleural and pulmonary density left lower lobe w follows with Dr. Berumen outpatient 3. History non-ST elevation AK post left heart catheterization and PCI of the RCA recently done in 2016. Continue aspirin 81 mg orally once every day, Plavix 75 mg orally once every day, metoprolol 25 bid, Lipitor 80 mg orally once every day. 4. History of Paroxysmal atrial fibrillation currently sinus rhythm, patient has been on Xarelto. Patient is not on any beta giovani during admission home this will be initiated 5 diabetes mellitus type 2 with last A1c of 7.4 last 09/2017 counseled regarding importance off dietary adherence to low carb, high-protein low-fat diet, Accu-Cheks, metformin to be initiated at 850 mg daily 7. Hyperlipidemia. continue Lipitor 80 mg orally once every day. Lipid management with diet 8. Obesity with LION. will continue with CPAP 9. Abdominal Aortic Aneurysm.under surveillance watch by . 10. Tobacco use and dependence in the form of chewing tobacco abstinence from nicotine recommended. 11 Obstructive sleep apnea, has CPAP device at home, discussed compliance, patient currently only wears it about 3 hours per night. O2 supplementation 12. DVT prophylaxis. on Xarelto 50 mg chronically. 13. GI prophylaxis .will continue with protonix 40 mg orally once a day. 14. tracheobronchitis, continue with O2 supplementation, albuterol, Symbicort, doxycycline added. The above impression and plan of care have been discussed and directed by signing physician. Jovanna Rhoades nurse practitioner acting as scribe for signing physician.
[2017-12-09] MEDS: METOPROLOL TARTRATE 25 MG TAB PO SCH ×2 (14:42→22:17)
[2017-12-09] MEDS: PANTOPRAZOLE 40 MG TABLET PO SCH ×2 (14:42→18:12)
[2017-12-09] MEDS: DOXYCYCLINE 50 MG CAP PO SCH ×2 (14:42→22:18)
[2017-12-09] MEDS: CLOPIDOGREL 75 MG TAB PO SCH (14:42)
--- NOTE | 2017-12-09 15:50 | P.CNPUL ---
History of Present Illness Consult date: 12/09/17 Reason for consult: dyspnea, COPD History of present illness: Laron is a 67-year-old male patient with known history of COPD and known history of coronary artery disease and obstructive sleep apnea. In terms of his COPD, the patient has an FEV1 of 28% of predicted consistent with severe obstructive airway limitation. The patient on has been maintained on Symbicort and albuterol about treatments around the clock as needed. The patient also has obstructive sleep apnea with an AHI of 17 and currently he is on CPAP pressure of 13 cm of water. Other comorbidities include obesity, chronic atrial fibrillation, hyperlipidemia and coronary artery disease. The patient came into the hospital because of sudden onset chest pain and shortness of breath. His cardiac enzymes were negative. EKG was nonspecific. The patient underwent a cardiac catheterization and he was found to have nonocclusive coronary artery disease and stents were essentially patent. The patient was found to have a left ventricular end-diastolic pressure of around 8-10 mmHg. The rest of the coronaries were patent including the previously stented vessel in the LAD. There was also evidence of a nonobstructive disease involving the RCA and the distal and mid RCA and the lesions were similar to the findings back in 2017. During this current hospital stay, the patient had an echocardiogram showing a normal ejection fraction of 50-55% and a PA pressures around [address] angios the chest showed no evidence of any pneumonia or pulmonary embolism and the pulmonary arteries were free of any filling defects. Currently is resting comfortably in bed. He is on oxygen 2 L/m nasal cannula to bring his saturation above 90%. Note that the patient is also on long-term articulation with Xarelto regarding his chronic atrial fibrillation. He has been having on and off problems with swelling in lower extremities for which she was placed on diuretics. Review of Systems Constitutional Constitutional: no fever, no night sweats, no significant weight loss, no exercise intolerance, weight gain (25lbs), lethargy (sleepy) Eyes Eyes: no dry eyes, no vision change, no irritation ENMT Ears: no difficulty hearing, no ear pain Nose: no frequent nosebleeds, no nose problems Mouth/Throat: no sore throat, no bleeding gums, no mouth ulcers, no teeth problems, snoring, dry mouth Cardiovascular Cardiovascular: no chest pain, no arm pain on exertion, no shortness of breath when lying down, no palpitations, no known heart murmur, shortness of breath when walking Respiratory Respiratory: no cough, no wheezing, no coughing up blood, no sleep apnea, shortness of breath Gastrointestinal Gastrointestinal: no abdominal pain, no nausea, no vomiting, no constipation, normal appetite, no diarrhea, not vomiting blood, no dyspepsia, no GERD Genitourinary Genitourinary: no incontinence, no difficulty urinating, no hematuria, no increased frequency Musculoskeletal Musculoskeletal: no muscle aches, no muscle weakness, no arthralgias/joint pain , no back pain, swelling in the extremities Integumentary Skin: no abnormal mole, no jaundice, no rashes, no laceration Neurologic Neurologic: no loss of consciousness, no weakness, no numbness, no seizures, no dizziness, no migraines, no headaches, no tremor Psychiatric Psych: no depression, no sleep disturbances, feeling safe in a relationship, no alcohol abuse, no anxiety, no hallucinations, no suicidal thoughts Endocrine Endocrine: no fatigue Hematologic/Lymphatic Hematologic/Lymphatic no swollen glands, no bruising, no excessive bleeding Allergic/Immunologic Allergy/Immunologic: no runny nose, no sinus pressure, no itching, no hives, no frequent sneezing Past Medical History Past Medical History: Atrial Fibrillation, Coronary Artery Disease (CAD), COPD, GERD/Reflux, Hyperlipidemia, Hypertension, Myocardial Infarction (IA), Osteoarthritis (OA), Sleep Apnea/CPAP/BIPAP Additional Past Medical History / Comment(s): COPD baseline FEV1 of 28%, obstructive sleep apnea, chronic atrial fibrillation, coronary artery disease, hyperlipidemia, obesity with BMI of 36.8, Thoracic aortic aneurysm 4.1 cm being monitored by Dr. Bennett, history of right lower extremities phlebitis, history of right wrist fracture, Last Myocardial Infarction Date:: 08/17/16 History of Any Multi-Drug Resistant Organisms: MRSA Date of last positivie culture/infection: 2007 MDRO Source:: LEFT ARM Past Surgical History: Appendectomy, Heart Catheterization With Stent Additional Past Surgical History / Comment(s): Fracture left wrist surgery, right leg vein stripping, tonsillectomy Past Anesthesia/Blood Transfusion Reactions: No Reported Reaction Date of Last Stent Placement:: 09/02/16 Past Psychological History: No Psychological Hx Reported Additional Psychological History / Comment(s): Pt resides with spouse. He is independent. Smoking Status: Former smoker (The patient quit smoking in 2005) Past Alcohol Use History: None Reported, Rare Additional Past Alcohol Use History / Comment(s): Pt started smoking as a teen and quit in 2005. He USED occasionally chew tobacco. Past Drug Use History: None Reported - Past Family History Father Family Medical History: No Reported History Additional Family Medical History / Comment(s): in his 80's HAD HEART ISSUES Mother Family Medical History: No Reported History, Dementia Additional Family Medical History / Comment(s): Mother in her 80's Sister(s) Family Medical History: CVA/TIA Daughter(s) Family Medical History: No Reported History Son(s) Family Medical History: No Reported History Medications and Allergies Home Medications Medication Instructions Recorded Confirmed Type Atorvastatin [Lipitor] 80 mg PO HS #30 tab 08/18/16 12/08/17 Rx Clopidogrel [Plavix] 75 mg PO DAILY 30 Days tab 08/18/16 12/08/17 Rx Albuterol Sulfate [Proair Hfa] 1 - 2 puff INHALATION RT-Q6H PRN 11/07/17 History Budesonide-Formot 160-4.5 Mcg 2 puff INHALATION RT-BID #1 inh 11/11/17 12/08/17 Rx [Symbicort 160-4.5 Mcg Inhaler] Albuterol Nebulized [Ventolin 2.5 mg INHALATION RT-QID PRN 12/08/17 12/08/17 History Nebulized] Allergies Allergy/AdvReac Type Severity Reaction Status Date / Time Penicillins Allergy Anaphylaxis Verified 12/08/17 11:34 Physical Exam Vitals: Vital Signs Temp Pulse Pulse Pulse Resp BP Pulse Ox 12/09/17 12:52 82 12/09/17 12:43 78 12/09/17 12:00 97.5 F L 81 108/65 96 12/09/17 11:30 75 109/59 95 12/09/17 11:00 80 114/66 12/09/17 10:45 77 114/69 93 L 12/09/17 10:30 16 106/66 96 12/09/17 10:15 16 103/56 96 12/09/17 04:00 99.0 F 89 20 107/46 94 L 12/09/17 00:37 59 L 24 12/09/17 00:28 74 24 94 L 12/09/17 00:00 104 H 24 12/08/17 23:40 99.6 F 80 18 100/69 93 L 12/08/17 22:38 98 12/08/17 22:24 98 18 12/08/17 20:00 90 20 12/08/17 19:25 98.2 F 97 18 133/43 98 12/08/17 16:00 97.7 F 69 18 110/49 96 Intake and Output 12/09/17 12/09/17 12/09/17 06:59 14:59 22:59 Intake Total 400 Balance 400 Intake: IV 100 Intake, IV Titration 300 Amount Sodium Chloride 0.9% 1, 300 000 ml In Empty Bag 1 bag @ 1 ML/KG/HR 123 mls/hr IV .Q8H8M ONE Rx#: [id number] Other: Voiding Method Urinal Urinal # Voids 2 Weight 123 kg General Appearance no diaphoresis, no respiratory distress, speech not interrupted by breaths, no dyspnea, no pallor, not cachectic, well nourished, appears well, obesity HEENT no pursed lip breathing, no jugular venous distention, no mucous membrane cyanosis, no perioral cyanosis, mallampati classification: class 1, Mallampati Classification: Class 4 Chest no barrel chest, no retractions, no sternocleidomastoid muscle contractions, no supraclavicular retractions, no intercostal retractions, no prolonged expiratory wheezing, no decreased air movement, no rhonchi, no hyperinflation, decreased air movement Heart no right ventricular heave, no distant heart sounds, no s3 gallop GI bowel sounds: hyperactive (borborygmi), bowel sounds: diminished or absent Extremities no cyanosis, no clubbing, edema Neurologic no decreased mental status, no somnolence, no confusion General Appearance normal, (normal) normal except as noted Results - Laboratory Findings CBC and BMP: 12/09/17 06:00 12/08/17 07:56 PT/INR, D-dimer PT 11.0 sec (9.0-12.0) 12/08/17 07:56 INR 1.1 (<1.2) 12/08/17 07:56 D-Dimer 3.33 mg/L FEU (<0.60) H 12/09/17 01:13 Abnormal lab findings: Abnormal Labs 12/08/17 12/08/17 12/08/17 07:56 07:56 11:55 RBC 4.19 L D-Dimer Sodium 134 L Chloride 97 L Glucose 244 H POC Glucose (mg/dL) 240 H Hemoglobin A1c Total Bilirubin 2.5 H Total Protein 5.3 L Albumin 3.0 L Lipase 421 H 12/08/17 12/09/17 14:07 01:13 RBC D-Dimer 3.33 H Sodium Chloride Glucose POC Glucose (mg/dL) Hemoglobin A1c 7.4 H Total Bilirubin Total Protein Albumin Lipase - Diagnostic Findings Chest x-ray: image reviewed CT scan - chest: image reviewed Assessment and Plan Plan: Assessment 1 acute exacerbation of chronic obstructive airways disease- patient shortness of breath is most likely related to an underlying COPD exacerbation. Cardiac workup has been negative thus far. The cardiac catheterization was completed and there is no evidence of any acute coronary abnormalities and the findings are rather stable with patent stents. No signs of any congestion heart failure. CT angios the chest is also negative. Watch for any signs of fluid overload as the patient has been retaining fluid in lower extremities bilaterally. 2 chronic obstructive lung disease severe COPD with an FEV1 of 28% of predicted. 3 obstructive sleep apnea syndrome The patient did do a home study and was positive for obstructive sleep apnea and he had an apnea index of 17 currently is utilizing a CPAP pressure of 13 cm of water. the patient is very compliant. 4 obesity The patient is encouraged to lose weight. 5 chronic atrial fibrillation, current rhythm is sinus 6 mixed hyperlipidemia 7 coronary arteriosclerosis, with previous coronary intervention and stenting, please refer to the most recent cardiac catheterizations was performed this morning' 8 hypertension 9 degenerative arthritis 10 chronic mild elevation of the left hemidiaphragm 11 questionable history of thoracic aortic aneurysm, not visualized on the most recent CAT scan Plan Continue current treatment with DuoNeb about treatments around the clock, IV Solu-Medrol and transitioned this patient a prednisone burst taper as of tomorrow. Watch the volume status. We'll continue to follow.
[2017-12-09] MEDS: ATORVASTATIN 80 MG TAB PO SCH (22:18)
[2017-12-09 23:45] VITALS: RESP 18
[2017-12-10] MEDS: SYMBICORT 160-4.5 MCG INHALER INHALATION SCH ×3 (03:44→19:15)
[2017-12-10] MEDS: NITROGLYCERIN OINT 1 INCH/GM PACKET TOPICAL SCH ×2 (03:44→06:53)
[2017-12-10] MEDS: metFORMIN 850 MG TAB PO SCH (05:19)
[2017-12-10] MEDS: methylPREDNISolone SOD SUCCI 125 MG/2 ML VIAL IV SCH ×3 (06:52→18:59)
[2017-12-10] MEDS: HEPARIN SODIUM,PORCINE 5,000 UNIT/ML 1 ML VIAL SQ SCH ×2 (06:53→18:15)
[2017-12-10] MEDS: PANTOPRAZOLE 40 MG TABLET PO SCH ×2 (06:53→18:59)
[2017-12-10] MEDS: ALBUTEROL NEBULIZED 2.5 MG/3 ML INHALATION PRN ×3 (07:47→19:15)
[2017-12-10] MEDS: DOXYCYCLINE 50 MG CAP PO SCH (08:39)
[2017-12-10] MEDS: CLOPIDOGREL 75 MG TAB PO SCH (08:39)
[2017-12-10] MEDS: ASPIRIN 81 MG PO SCH (08:39)
[2017-12-10] MEDS ORDERED: SODIUM CHLORIDE 0.9% 500 ML IV ONE (11:30)
[2017-12-10] MEDS: METOPROLOL TARTRATE 25 MG TAB PO SCH (12:01)
[2017-12-10 12:27] LABS: Glucose,Whole Blood 270 mg/dL (75-99)
[2017-12-10 12:52] LABS: Lipase 584 U/L (23-300)
--- NOTE | 2017-12-10 13:51 | P.PN ---
Subjective Progress Note Date: 12/10/17 Principal diagnosis: Acute exacerbation of chronic obstructive airways disease Laron is a 67-year-old male patient with known history of COPD and known history of coronary artery disease and obstructive sleep apnea. In terms of his COPD, the patient has an FEV1 of 28% of predicted consistent with severe obstructive airway limitation. The patient on has been maintained on Symbicort and albuterol about treatments around the clock as needed. The patient also has obstructive sleep apnea with an AHI of 17 and currently he is on CPAP pressure of 13 cm of water. Other comorbidities include obesity, chronic atrial fibrillation, hyperlipidemia and coronary artery disease. The patient came into the hospital because of sudden onset chest pain and shortness of breath. His cardiac enzymes were negative. EKG was nonspecific. The patient underwent a cardiac catheterization and he was found to have nonocclusive coronary artery disease and stents were essentially patent. The patient was found to have a left ventricular end-diastolic pressure of around 8-10 mmHg. The rest of the coronaries were patent including the previously stented vessel in the LAD. There was also evidence of a nonobstructive disease involving the RCA and the distal and mid RCA and the lesions were similar to the findings back in 2017. During this current hospital stay, the patient had an echocardiogram showing a normal ejection fraction of 50-55% and a PA pressures around [address] angios the chest showed no evidence of any pneumonia or pulmonary embolism and the pulmonary arteries were free of any filling defects. Currently is resting comfortably in bed. He is on oxygen 2 L/m nasal cannula to bring his saturation above 90%. Note that the patient is also on long-term articulation with [employer] regarding his chronic atrial fibrillation. He has been having on and off problems with swelling in lower extremities for which she was placed on diuretics. On 12/10/2017 patient seen in follow-up. He states his breathing is easier today, although he continues with this pursed lip breathing, he states that's how he breathes on the regular basis. Denies any skin wheezing, denies any significant chest congestion. Lung sounds are positive for diminished breath sounds bilaterally, no rhonchi, no wheezes or rales noted. Denied any chest pain, yesterday patient underwent heart catheterization, and was not found to have any evidence of occlusive coronary artery disease, and his stents were essentially patent. He remains on 4 L per nasal cannula, with O2 sat at 94%. He has been afebrile, hemodynamically stable. He is being treated with IV Solu- Medrol, bronchodilators for his acute COPD exacerbation. He is responding well to medical treatments, bilateral lower extremity edema has improved, yesterday patient was given a dose of IV Lasix. We have asked him to bring in his CPAP machine from home, as the patient is lying some issues with that at home, namely with the water heating up within the unit after 3 or 4 hours of wear. Overall remains stable, is improving, increase activity as tolerated, possible discharge home today. Objective - Vital Signs Vital signs: Vital Signs Temp 97.6 F 12/10/17 11:25 Pulse 80 12/10/17 11:43 Resp 18 12/10/17 11:25 BP 113/60 12/10/17 11:25 Pulse Ox 94 L 12/10/17 11:25 Intake & Output 12/09/17 12/10/17 12/10/17 18:59 06:59 18:59 Intake Total 400 440 Output Total 1200 Balance -800 440 Intake: IV 100 Intake, IV Titration 300 Amount Sodium Chloride 0.9% 1, 300 000 ml In Empty Bag 1 bag @ 1 ML/KG/HR 123 mls/hr IV .Q8H8M ONE Rx#: [id number] Oral 240 Other 200 Output: Urine 1200 Other: Voiding Method Urinal Toilet Toilet # Voids 3 1 - Exam GENERAL EXAM: Alert, pleasant, 67-year-old white male comfortable in no apparent distress, currently on 4 L per nasal cannula with O2 sat at 94%. HEAD: Normocephalic/atraumatic. EYES: Normal reaction of pupils, equal size. Conjunctiva pink, sclera white. NOSE: Clear with pink turbinates. THROAT: No erythema or exudates. NECK: No masses, no JVD, no thyroid enlargement, no adenopathy. CHEST: No chest wall deformity. Symmetrical expansion. LUNGS: Equal air entry with no crackles, wheeze, rhonchi or dullness. CVS: Regular rate and rhythm, normal S1 and S2, no gallops, no murmurs, no rubs ABDOMEN: Soft, nontender. No hepatosplenomegaly, normal bowel sounds, no guarding or rigidity. EXTREMITIES: No clubbing, mild pretibial edema improved, no cyanosis, 2+ pulses and upper and lower extremities. MUSCULOSKELETAL: Muscle strength and tone normal. SPINE: No scoliosis or deformity SKIN: No rashes CENTRAL NERVOUS SYSTEM: Alert and oriented -3. No focal deficits, tone is normal in all 4 extremities. PSYCHIATRIC: Alert and oriented -3. Appropriate affect. Intact judgment and insight. - Labs CBC & Chem 7: 12/09/17 06:00 12/08/17 07:56 Labs: Abnormal Lab Results - Last 24 Hours (Table) 12/10/17 Range/Units 12:21 POC Glucose (mg/dL) 270 H (75-99) mg/dL Assessment and Plan Plan: Assessment: 1 acute exacerbation of chronic obstructive airways disease- patient shortness of breath is most likely related to an underlying COPD exacerbation. Cardiac workup has been negative thus far. The cardiac catheterization was completed and there is no evidence of any acute coronary abnormalities and the findings are rather stable with patent stents. No signs of any congestion heart failure. CT angios the chest is also negative. Watch for any signs of fluid overload as the patient has been retaining fluid in lower extremities bilaterally. 2 chronic obstructive lung disease severe COPD with an FEV1 of 28% of predicted. 3 obstructive sleep apnea syndrome The patient did do a home study and was positive for obstructive sleep apnea and he had an apnea index of 17 currently is utilizing a CPAP pressure of 13 cm of water. the patient is very compliant. 4 obesity The patient is encouraged to lose weight. 5 chronic atrial fibrillation, current rhythm is sinus 6 mixed hyperlipidemia 7 coronary arteriosclerosis, with previous coronary intervention and stenting, please refer to the most recent cardiac catheterizations was performed this morning' 8 hypertension 9 degenerative arthritis 10 chronic mild elevation of the left hemidiaphragm 11 questionable history of thoracic aortic aneurysm, not visualized on the most recent CAT scan Plan: Patient is bilateral lower extremity edema has improved, patient was given 1 dose of IV Lasix yesterday. He states his dyspnea is improving, continue weaning FiO2, patient has been treated with bronchodilators, IV steroids, and antibiotics for his COPD exacerbation. Stable, increase activity as tolerated. I performed a history & physical examination of the patient and discussed their management with my nurse practitioner, Lety Chaparro. I reviewed the nurse practitioner's note and agree with the documented findings and plan of care. Lung sounds are clear. The findings and the impression was discussed with the patient. I attest to the documentation by the nurse practitioner. Time with Patient: Less than 30
--- NOTE | 2017-12-10 13:59 | P.PN ---
Subjective Progress Note Date: 12/10/17 Mr. Junior is seen and examined today in follow-up after cardiac catheterization. Right femoral region is soft, non-tender with no signs of ecchymosis. He has been up ambulating in the halls without difficulty or bleeding. Blood pressure 113/60 heart rate 69 and afebrile. Catheterization showed patent stents in RCA and LAD with mild to moderated not-obstructive disease in mid RCA and proximal LAD. Medical management and risk factor modification recommended. He has also been seen in consultation per pulmonology and is being treated for an acute COPD exacerbation with IV steroids and breathing treatments. Objective - Vital Signs Vital signs: Vital Signs Temp 97.6 F 12/10/17 11:25 Pulse 80 12/10/17 11:43 Resp 18 12/10/17 11:25 BP 113/60 12/10/17 11:25 Pulse Ox 94 L 12/10/17 11:25 Intake & Output 12/09/17 12/10/17 12/10/17 18:59 06:59 18:59 Intake Total 400 440 Output Total 1200 Balance -800 440 Intake: IV 100 Intake, IV Titration 300 Amount Sodium Chloride 0.9% 1, 300 000 ml In Empty Bag 1 bag @ 1 ML/KG/HR 123 mls/hr IV .Q8H8M ONE Rx#: [id number] Oral 240 Other 200 Output: Urine 1200 Other: Voiding Method Urinal Toilet Toilet # Voids 3 1 - Exam GENERAL: Well-appearing, well-nourished and in no acute distress. NECK: Supple without JVD or thyromegaly. LUNGS: Breath sounds clear to auscultation bilaterally. Respiration equal and unlabored. No wheezes, rales or rhonchi. HEART: Regular rate and rhythm without murmurs, rubs or gallops. S1 and S2 heard. EXTREMITIES: Normal range of motion, no edema. No clubbing or cyanosis. Peripheral pulses intact and strong. RIGHT GROIN: Soft, non-tender, no hematoma, no ecchymosis, no bleeding. - Labs CBC & Chem 7: 12/09/17 06:00 12/08/17 07:56 Labs: Abnormal Lab Results - Last 24 Hours (Table) 12/10/17 Range/Units 12:21 POC Glucose (mg/dL) 270 H (75-99) mg/dL Assessment and Plan Assessment: ASSESSMENT 1. Chest pain, atypical. 2. History of coronary artery disease 3. COPD 4. Dyslipidemia 5. Diabetes mellitus 6. Paroxysmal atrial fibrillation 7. Sleep apnea PLAN Continue with aspirin 81 mg daily, atorvastatin 80 mg daily and plavix 75 mg daily. Follow-up with Dr. Moss in 1 week. The above impression and plan of care have been discussed and directed by the signing physician. Darline Crump, nurse practitioner, acting as scribe for signing physician.
[2017-12-10] MEDS: INSULIN ASPART 100 UNIT/ML 1 ML 10 ML VIAL SQ SCH ×2 (14:14→18:15)
--- NOTE | 2017-12-10 14:22 | P.PN ---
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 Berumen with a previous medical history significant for a PD atrial fibrillation, hypertension and hypertensive cardiovascular disease, hyperlipidemia, obesity with LION, CAD and STEMI, requiring PCI RCA in 2016. Admitted to the emergency room secondary to chest pain He had awoken from his sleep, severe chest discomfort, lasted 1-1/2 hours, no relief with Rolaids and Tums, he was subsequently seen in the emergency room with relief using nitroglycerin. There was no radiation of the pain, patient has chronic dyspnea on exertion, patient denies any PND or lower extremity edema , pain was substernal in location different from his usual anginal pain. His last stress test was last year, follows with Dr. Moss patient denies any dyspepsia or dysphagia, In the emergency room EKG shows normal sinus rhythm without any ST-T wave changes troponin is normal on 0.01 2.013, blood sugars slightly elevated between 222 240, lipase 421 elevated. Last hemoglobin A1c of 7.3 11/07/201712/09: Patient was evaluated today, patient's family is at the bedside. He was just getting back from his cardiac cath. He had a CT of the chest that was negative for pulmonary embolism. Due to his chest pain, shortness of breath and multivessel CAD, Dr. Guy suggested cardiac catheterization. Cardiac cath showed patent stents within the left anterior descending artery and the right coronary artery, mild to moderate nonobstructive disease involving the mid and distal right coronary artery and proximal left anterior descending artery. No hematoma or bleeding noted to cath site. Hemoglobin A1c noted to be 7.4, he was started on Glucophage. He complaints of a cough and fever with chills, low- grade temp of 99 noted yesterda, will treat for tracheobronchitis with doxycycline. Will anticipate discharge tomorrow. 12/10: Patient was evaluated today, family is at the bedside. Patient was noted to have episodes of hypotension with readings of 87/54 and 89/40. Patient denies any dizziness or syncope. Patient's metoprolol was decreased to 12.5 mg twice a day from 25 mg twice a day. Will obtain a cortisol level, patient would benefit from an adrenal workup as outpatient basis after patient has been off steroids for over 6 weeks. Lipase continued to be elevated, although patient denies any symptoms. We'll hold discharge for today, anticipate for tomorrow, we'll continue to monitor blood pressure today. Objective - Vital Signs Vital signs: Vital Signs Temp 97.6 F 12/10/17 11:25 Pulse 80 12/10/17 11:43 Resp 18 12/10/17 11:25 BP 113/60 12/10/17 11:25 Pulse Ox 94 L 12/10/17 11:25 Intake & Output 12/09/17 12/10/17 12/10/17 18:59 06:59 18:59 Intake Total 400 440 Output Total 1200 Balance -800 440 Intake: IV 100 Intake, IV Titration 300 Amount Sodium Chloride 0.9% 1, 300 000 ml In Empty Bag 1 bag @ 1 ML/KG/HR 123 mls/hr IV .Q8H8M ONE Rx#: [id number] Oral 240 Other 200 Output: Urine 1200 Other: Voiding Method Urinal Toilet Toilet # Voids 3 1 - Exam - Constitutional General appearance: cooperative, no acute distress, obese - EENT Eyes: anicteric sclerae, EOMI, PERRLA, dentition normal, normal appearance ENT: NA/AT, normal oropharynx - Neck Neck: normal ROM - Respiratory Respiratory: bilateral: CTA, negative: diminished, dullness, wheezing, prolonged expiration, prolonged inspiration - Cardiovascular Rhythm: regular Heart sounds: normal: S1, S2 Abnormal Heart Sounds: no systolic murmur, no diastolic murmur, no rub, no S3 Gallop, no S4 Gallop, no click, no other - Gastrointestinal General gastrointestinal: normal bowel sounds, soft - Integumentary Integumentary: decreased turgor, normal - Neurologic Neurologic: CNII-XII intact - Musculoskeletal Musculoskeletal: gait normal, strength equal bilaterally - Psychiatric Psychiatric: A&O x's 3, appropriate affect, intact judgment & insight - Labs CBC & Chem 7: 12/09/17 06:00 12/08/17 07:56 Labs: Abnormal Lab Results - Last 24 Hours (Table) 12/10/17 12/10/17 Range/Units 12:21 12:22 POC Glucose (mg/dL) 270 H (75-99) mg/dL Lipase 584 H (23-300) U/L Assessment and Plan Plan: 1. Acute substernal chest pain prolonged atypical in nature, known history of CAD, however chest discomfort relieved with nitroglycerin without any dysphagia complaints or abdominal dysphagia, lipase elevated signifying mild pancreatitis , consulted by cardiology, patient's on Nitropaste, Plavix, and Lipitor Metoprolol decreased from 25 mg twice a day to 12.5. Cardiac cath completed, shows patent stents within the left anterior descending artery in the right coronary artery with mild to moderate nonobstructive disease. 2. History of Left lower lobe abnormality chronic pleural and pulmonary density left lower lobe w follows with Dr. Berumen outpatient 3. History non-ST elevation NM post left heart catheterization and PCI of the RCA recently done in 2016. Continue aspirin 81 mg orally once every day, Plavix 75 mg orally once every day, metoprolol 25 bid, Lipitor 80 mg orally once every day. 4. History of Paroxysmal atrial fibrillation currently sinus rhythm, patient has been on Xarelto. Patient is not on any beta giovani during admission home this will be initiated 5 diabetes mellitus type 2 with last A1c of 7.4 last 09/2017 counseled regarding importance off dietary adherence to low carb, high-protein low-fat diet, Accu-Cheks, metformin to be initiated at 850 mg daily 7. Hyperlipidemia. continue Lipitor 80 mg orally once every day. Lipid management with diet 8. Obesity with LION. will continue with CPAP 9. Abdominal Aortic Aneurysm.under surveillance watch by . 10. Tobacco use and dependence in the form of chewing tobacco abstinence from nicotine recommended. 11 Obstructive sleep apnea, has CPAP device at home, discussed compliance, patient currently only wears it about 3 hours per night. O2 supplementation 12. DVT prophylaxis. on Xarelto 50 mg chronically. 13. GI prophylaxis .will continue with protonix 40 mg orally once a day. 14. tracheobronchitis, continue with O2 supplementation, albuterol, Symbicort, doxycycline added. 15. Hypotension secondary to beta giovani, possibly adrenal insufficiency, metoprolol decreased from 25 mg twice a day to 12.5 mg twice a day, cortisol levels ordered, patient will need adrenal workup as outpatient after patient has been off steroids for over 6 weeks. The above impression and plan of care have been discussed and directed by signing physician. Jovanna Rhoades nurse practitioner acting as scribe for signing physician.
[2017-12-10 17:00] LABS: Glucose,Whole Blood 266 mg/dL (75-99)
[2017-12-10 20:49] LABS: Glucose,Whole Blood 228 mg/dL (75-99)
[2017-12-10] MEDS ORDERED: ATORVASTATIN 80 MG TAB ONE (22:00)
[2017-12-10] MEDS ORDERED: INSULIN ASPART 100 UNIT/ML 1 ML 10 ML VIAL SQ ONE (22:00)
[2017-12-10] MEDS ORDERED: METOPROLOL TARTRATE 12.5 MG TAB ONE (22:00)
[2017-12-10] MEDS ORDERED: ALPRAZolam 0.5 MG TAB ONE (22:00)
[2017-12-11] MEDS ORDERED: HEPARIN SODIUM,PORCINE 5,000 UNIT/ML 1 ML VIAL ONE
[2017-12-11] MEDS ORDERED: methylPREDNISolone SOD SUCCI 125 MG/2 ML VIAL ONE
[2017-12-11] MEDS: ATORVASTATIN 80 MG TAB PO SCH (06:01)
[2017-12-11] MEDS: INSULIN ASPART 100 UNIT/ML 1 ML 10 ML VIAL SQ SCH ×2 (06:02→09:12)
[2017-12-11] MEDS: HEPARIN SODIUM,PORCINE 5,000 UNIT/ML 1 ML VIAL SQ SCH ×2 (06:02→09:10)
[2017-12-11] MEDS: DOXYCYCLINE 50 MG CAP PO SCH ×2 (06:02→09:08)
[2017-12-11] MEDS: METOPROLOL TARTRATE 12.5 MG TAB PO SCH ×2 (06:02→09:09)
[2017-12-11] MEDS: methylPREDNISolone SOD SUCCI 125 MG/2 ML VIAL IV SCH ×2 (06:03→07:05)
[2017-12-11 07:04] LABS: Glucose,Whole Blood 251 mg/dL (75-99)
[2017-12-11 07:17] LABS: Basophils % (A) 0 %; Eosinophils % (A) 0 %; HCT 40.4 % (39.0-53.0); HGB 13.3 gm/dL (13.0-17.5); Lymphocytes # (A) 0.7 k/uL (1.0-4.8); Lymphocytes % (A) 7 %; MCH 31.7 pg (25.0-35.0); MCHC 32.8 g/dL (31.0-37.0); MCV 96.5 fL (80.0-100.0); Mean Platelet Volume 7.6; Monocytes # (A) 0.3 k/uL (0-1.0); Monocytes % (A) 3 %; Neutrophils # (A) 8.7 k/uL (1.3-7.7); Neutrophils % (A) 89 %; Platelet Count 300 k/uL (150-450); RBC 4.19 m/uL (4.30-5.90); RDW 13.3 % (11.5-15.5); WBC 9.7 k/uL (3.8-10.6)
[2017-12-11 07:42] LABS: Albumin 3.2 g/dL (3.5-5.0); Anion Gap 12 mmol/L; Calcium 9.3 mg/dL (8.4-10.2); Carbon Dioxide 29 mmol/L (22-30); Chloride 99 mmol/L (98-107); Glucose 252 mg/dL (74-99); Sodium 140 mmol/L (137-145); Total Protein 5.5 g/dL (6.3-8.2)
[2017-12-11 07:57] LABS: T4, Free (Free Thyroxine) 1.38 ng/dL (0.78-2.19)
[2017-12-11] MEDS: SYMBICORT 160-4.5 MCG INHALER INHALATION SCH (08:02)
[2017-12-11 08:13] LABS: Blood Urea Nitrogen 24 mg/dL (9-20)
[2017-12-11 08:14] LABS: ALT 48 U/L (21-72); AST 32 U/L (17-59); Alkaline Phosphatase 53 U/L (38-126)
[2017-12-11] MEDS ORDERED: FLUDROCORTISONE 0.1 MG TAB PO SCH (09:00)
[2017-12-11] MEDS: metFORMIN 850 MG TAB PO SCH (09:09)
[2017-12-11] MEDS: CLOPIDOGREL 75 MG TAB PO SCH (09:09)
[2017-12-11] MEDS: PANTOPRAZOLE 40 MG TABLET PO SCH (09:09)
[2017-12-11] MEDS: ASPIRIN 81 MG PO SCH (09:10)
[2017-12-11] MEDS ORDERED: predniSONE 10 MG TAB PO STA (10:35)
--- NOTE | 2017-12-11 11:59 | P.PN ---
Subjective Progress Note Date: 12/11/17 Principal diagnosis: Acute exacerbation of chronic obstructive airways disease Laron is a 67-year-old male patient with known history of COPD and known history of coronary artery disease and obstructive sleep apnea. In terms of his COPD, the patient has an FEV1 of 28% of predicted consistent with severe obstructive airway limitation. The patient on has been maintained on Symbicort and albuterol about treatments around the clock as needed. The patient also has obstructive sleep apnea with an AHI of 17 and currently he is on CPAP pressure of 13 cm of water. Other comorbidities include obesity, chronic atrial fibrillation, hyperlipidemia and coronary artery disease. The patient came into the hospital because of sudden onset chest pain and shortness of breath. His cardiac enzymes were negative. EKG was nonspecific. The patient underwent a cardiac catheterization and he was found to have nonocclusive coronary artery disease and stents were essentially patent. The patient was found to have a left ventricular end-diastolic pressure of around 8-10 mmHg. The rest of the coronaries were patent including the previously stented vessel in the LAD. There was also evidence of a nonobstructive disease involving the RCA and the distal and mid RCA and the lesions were similar to the findings back in 2017. During this current hospital stay, the patient had an echocardiogram showing a normal ejection fraction of 50-55% and a PA pressures around [address] angios the chest showed no evidence of any pneumonia or pulmonary embolism and the pulmonary arteries were free of any filling defects. Currently is resting comfortably in bed. He is on oxygen 2 L/m nasal cannula to bring his saturation above 90%. Note that the patient is also on long-term articulation with 3Jam regarding his chronic atrial fibrillation. He has been having on and off problems with swelling in lower extremities for which she was placed on diuretics. On 12/10/2017 patient seen in follow-up. He states his breathing is easier today, although he continues with this pursed lip breathing, he states that's how he breathes on the regular basis. Denies any wheezing, denies any significant chest congestion. Lung sounds are positive for diminished breath sounds bilaterally, no rhonchi, no wheezes or rales noted. Denied any chest pain, yesterday patient underwent heart catheterization, and was not found to have any evidence of occlusive coronary artery disease, and his stents were essentially patent. He remains on 4 L per nasal cannula, with O2 sat at 94%. He has been afebrile, hemodynamically stable. He is being treated with IV Solu- Medrol, bronchodilators for his acute COPD exacerbation. He is responding well to medical treatments, bilateral lower extremity edema has improved, yesterday patient was given a dose of IV Lasix. We have asked him to bring in his CPAP machine from home, as the patient is lying some issues with that at home, namely with the water heating up within the unit after 3 or 4 hours of wear. Overall remains stable, is improving, increase activity as tolerated, possible discharge home today. On 12/11/2017 patient seen in follow-up. He continues to improve, breathing easier today, currently on 4 L per nasal cannula with O2 sat at 94%. Yesterday patient did have an episode of hypotension with systolic blood pressure in the 80s, and diastolic blood pressure in the 40s, which has resolved. This is likely to dose of IV diuretics and diuresis. Today no evidence of hypotension, with systolic blood pressure ranging from 110-1 38 mmHg, with diastolic in the 60s. Afebrile, denies any acute complaints, has been ambulating in the room, tolerating activity well. Patient denies any dizziness or syncope. Bilateral lower extremity edema has improved. Patient does not have any chest congestion , or cough or sputum production. Denies any fever or chills, no hemoptysis. Denies any chest pain. Today's labs showed a PVC of 9.7, hemoglobin of 13.3, electrolytes are within normal limits, B1 is 24, creatinine 0.80. Patient did not bring his CPAP machine from home, continue with CPAP support, and patient was told to bring his CPAP machine to the office to a follow-up appointment. Objective - Vital Signs Vital signs: Vital Signs Temp 97.4 F L 12/11/17 07:20 Pulse 84 12/11/17 07:20 Resp 18 12/11/17 07:20 BP 116/66 12/11/17 07:20 Pulse Ox 94 L 12/11/17 07:20 Intake & Output 12/10/17 12/11/17 12/11/17 18:59 06:59 18:59 Intake Total 680 300 Balance 680 300 Intake: Oral 480 300 Other 200 Other: Voiding Method Toilet Toilet Toilet - Exam GENERAL EXAM: Alert, pleasant, 67-year-old white male comfortable in no apparent distress, currently on 4 L per nasal cannula with O2 sat at 94%. HEAD: Normocephalic/atraumatic. EYES: Normal reaction of pupils, equal size. Conjunctiva pink, sclera white. NOSE: Clear with pink turbinates. THROAT: No erythema or exudates. NECK: No masses, no JVD, no thyroid enlargement, no adenopathy. CHEST: No chest wall deformity. Symmetrical expansion. LUNGS: Equal air entry with no crackles, wheeze, rhonchi or dullness. Diminished lung sounds at the bases CVS: Regular rate and rhythm, normal S1 and S2, no gallops, no murmurs, no rubs ABDOMEN: Soft, nontender. No hepatosplenomegaly, normal bowel sounds, no guarding or rigidity. EXTREMITIES: No clubbing, mild pretibial edema improved, no cyanosis, 2+ pulses and upper and lower extremities. MUSCULOSKELETAL: Muscle strength and tone normal. SPINE: No scoliosis or deformity SKIN: No rashes CENTRAL NERVOUS SYSTEM: Alert and oriented -3. No focal deficits, tone is normal in all 4 extremities. PSYCHIATRIC: Alert and oriented -3. Appropriate affect. Intact judgment and insight. - Labs CBC & Chem 7: 12/11/17 06:41 12/11/17 06:41 Labs: Abnormal Lab Results - Last 24 Hours (Table) 12/10/17 12/10/17 12/10/17 Range/Units 12:21 12:21 12:22 RBC (4.30-5.90) m/uL Neutrophils # (1.3-7.7) k/uL Lymphocytes # (1.0-4.8) k/uL BUN (9-20) mg/dL Glucose (74-99) mg/dL POC Glucose (mg/dL) 270 H (75-99) mg/dL Total Protein (6.3-8.2) g/dL Albumin (3.5-5.0) g/dL Lipase 584 H (23-300) U/L Total Testosterone 64.00 L (86.98-780.10) ng/dL 12/10/17 12/10/17 12/11/17 Range/Units 16:58 20:31 06:41 RBC (4.30-5.90) m/uL Neutrophils # (1.3-7.7) k/uL Lymphocytes # (1.0-4.8) k/uL BUN 24 H (9-20) mg/dL Glucose 252 H (74-99) mg/dL POC Glucose (mg/dL) 266 H 228 H (75-99) mg/dL Total Protein 5.5 L (6.3-8.2) g/dL Albumin 3.2 L (3.5-5.0) g/dL Lipase (23-300) U/L Total Testosterone (86.98-780.10) ng/dL 12/11/17 12/11/17 Range/Units 06:41 07:01 RBC 4.19 L (4.30-5.90) m/uL Neutrophils # 8.7 H (1.3-7.7) k/uL Lymphocytes # 0.7 L (1.0-4.8) k/uL BUN (9-20) mg/dL Glucose (74-99) mg/dL POC Glucose (mg/dL) 251 H (75-99) mg/dL Total Protein (6.3-8.2) g/dL Albumin (3.5-5.0) g/dL Lipase (23-300) U/L Total Testosterone (86.98-780.10) ng/dL Assessment and Plan Plan: Assessment: 1 acute exacerbation of chronic obstructive airways disease- patient shortness of breath is most likely related to an underlying COPD exacerbation. Cardiac workup has been negative thus far. The cardiac catheterization was completed and there is no evidence of any acute coronary abnormalities and the findings are rather stable with patent stents. No signs of any congestion heart failure. CT angios the chest is also negative. Watch for any signs of fluid overload as the patient has been retaining fluid in lower extremities bilaterally. 2 chronic obstructive lung disease severe COPD with an FEV1 of 28% of predicted. 3 obstructive sleep apnea syndrome The patient did do a home study and was positive for obstructive sleep apnea and he had an apnea index of 17 currently is utilizing a CPAP pressure of 13 cm of water. the patient is very compliant. 4 obesity The patient is encouraged to lose weight. 5 chronic atrial fibrillation, current rhythm is sinus 6 mixed hyperlipidemia 7 coronary arteriosclerosis, with previous coronary intervention and stenting, please refer to the most recent cardiac catheterizations was performed this morning' 8 hypertension 9 degenerative arthritis 10 chronic mild elevation of the left hemidiaphragm 11 questionable history of thoracic aortic aneurysm, not visualized on the most recent CAT scan Plan: Patient is stable, states his breathing is improving, increase activity today, wean FiO2. No episodes of hypotension today, patient has bilateral lower extremity edema has improved. Patient is stable for discharge home today on a prednisone taper starting at 30 mg, continue CPAP support as previously prescribed, patient was told to bring his CPAP machine to the office follow-up visit to address the issue of water overheating after a few hours of wear. Otherwise no acute events overnight, denies any chest pain, denies any chest congestion or any significant sputum production. Follow-up with Dr. Berumen in the office in 7-10 days I performed a history & physical examination of the patient and discussed their management with my nurse practitioner, Lety Chaparro. I reviewed the nurse practitioner's note and agree with the documented findings and plan of care. Lung sounds are clear, diminished at the bases. The findings and the impression was discussed with the patient. I attest to the documentation by the nurse practitioner. Time with Patient: Less than 30
[2017-12-11 12:13] LABS: Glucose,Whole Blood 196 mg/dL (75-99)
--- NOTE | 2017-12-11 12:16 | CDI ---
Last Revision, July 2017 Documentation Clarification Form Date: 12/11/17 From: Mary Heranndez RN, CCDS Admit Date: 12/10/2017 7:40:00 AM Patient Name: Laron Junior V Visit Number: [id number] Discharge Date: ATTENTION: The Clinical Documentation Specialists (CDI) and [facility] Coding Staff appreciate your assistance in clarifying documentation. Please respond to the clarification below the line at the bottom and electronically sign. The CDI & [facility] Coding staff will review the response and follow-up if needed. Please note: Queries are made part of the Legal Health Record. If you have any questions, please contact the author of this message via ITS. Dr. Elba Joy 12/09/17 Pulmonary (Dr. Berumen): acute exacerbation of chronic obstructive airway disease, patient shortness of breath is most likely related to an underlying COPD exacerbation. 12/10 Attending progress notes: Tracheobronchitis, continue with O2 supplementation, albuterol, Symbicort, Doxcycline added. Presenting symptoms: Chest pain and shortness of breath, dyspnea, chronic atrial fibrillation Patient history/risk factors: COPD baseline FEV1 of 28 %, CAD, Obstructive sleep apnea Clinical Indicators: Shortness of breath when walking. Lab findings: CT angios and chest: no evidence of any pneumonia or pulmonary embolism. : Vital Signs: 138/64 101 18 94 % 4/L NC Treatment: Solu-medrol IV (taper) NuoNeb treatments Vibramycin PO Monitor O2 Sat's The patients principal diagnosis has not been clearly identified and requires clarification. In your professional opinion, can you please clarify which diagnosis, after study, accounted for the patients presenting symptoms and was the reason chiefly responsible for the admission? Acute exacerbation of COPD Tracheobronchitis (further specify Acute, chronic, with chronic obstructive pulmonary disease) Other, specify Unable to determine Please continue to document in your progress notes and discharge summary in order to capture severity of illness and risk of mortality. Include clinical findings that support your diagnosis. MTDD
[2017-12-11 12:36] VITALS: BP 109/66; PULSE 76; TEMP 97.5
--- NOTE | 2017-12-11 13:27 | P.DS ---
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 Berumen with a previous medical history significant for a PD atrial fibrillation, hypertension and hypertensive cardiovascular disease, hyperlipidemia, obesity with LION, CAD and STEMI, requiring PCI RCA in 2016. Admitted to the emergency room secondary to chest pain He had awoken from his sleep, severe chest discomfort, lasted 1-1/2 hours, no relief with Rolaids and Tums, he was subsequently seen in the emergency room with relief using nitroglycerin. There was no radiation of the pain, patient has chronic dyspnea on exertion, patient denies any PND or lower extremity edema , pain was substernal in location different from his usual anginal pain. His last stress test was last year, follows with Dr. Moss patient denies any dyspepsia or dysphagia, In the emergency room EKG shows normal sinus rhythm without any ST-T wave changes troponin is normal on 0.01 2.013, blood sugars slightly elevated between 222 240, lipase 421 elevated. Last hemoglobin A1c of 7.3 11/07/201712/09: Patient was evaluated today, patient's family is at the bedside. He was just getting back from his cardiac cath. He had a CT of the chest that was negative for pulmonary embolism. Due to his chest pain, shortness of breath and multivessel CAD, Dr. Guy suggested cardiac catheterization. Cardiac cath showed patent stents within the left anterior descending artery and the right coronary artery, mild to moderate nonobstructive disease involving the mid and distal right coronary artery and proximal left anterior descending artery. No hematoma or bleeding noted to cath site. Hemoglobin A1c noted to be 7.4, he was started on Glucophage. He complaints of a cough and fever with chills, low- grade temp of 99 noted yesterda, will treat for tracheobronchitis with doxycycline. Will anticipate discharge tomorrow. 12/10: Patient was evaluated today, family is at the bedside. Patient was noted to have episodes of hypotension with readings of 87/54 and 89/40. Patient denies any dizziness or syncope. Patient's metoprolol was decreased to 12.5 mg twice a day from 25 mg twice a day. Will obtain a cortisol level, patient would benefit from an adrenal workup as outpatient basis after patient has been off steroids for over 6 weeks. Lipase continued to be elevated, although patient denies any symptoms. We'll hold discharge for today, anticipate for tomorrow, we'll continue to monitor blood pressure today. 12/11: Patient was evaluated today, he denies any shortness of breath or chest pain. Blood pressure stable at 109/66, he'll continue the metoprolol 12.5 g twice a day. He will continue Cpap at home, he was instructed to bring Cpap to follow up visit with Dr. Berumen to troubleshoot the issue of the water overheating in his machine. He will also follow up with cardiology and finish course of antibiotic and prednisone taper. Cortisol level was 4, total testosterone was 64, will start DHEA daily, will need follow-up with PCP for possible testosterone replacement. Lipase 584, patient currently asymptomatic, will follow a low-fat diet and repeat CBC with lipase in 1 week. Discharge diagnosis: 1. Acute substernal chest pain, negative cardiac cath 2. History of Left lower lobe abnormality chronic pleural and pulmonary density left lower lobe w follows with Dr. Berumen outpatient 3. History non-ST elevation CA post left heart catheterization and PCI of the RCA recently done in 2016. 4. History of Paroxysmal atrial fibrillation currently sinus rhythm 5 diabetes mellitus type 2 with last A1c of 7.4 7. Hyperlipidemia 8. Obesity with LION 9. Abdominal Aortic Aneurysm 10. Tobacco use and dependence in the form of chewing tobacco abstinence from nicotine recommended. 11 Obstructive sleep apnea 12. Acute tracheobronchitis with COPD exacerbation 15. Hypotension secondary to beta giovani, possibly adrenal insufficiency, patient will need adrenal workup as outpatient after patient has been off steroids for over 6 weeks. 16. Mild pancreatitis The above impression and plan of care have been discussed and directed by signing physician. Jovanna Rhoades nurse practitioner acting as scribe for signing physician. Patient Condition at Discharge: Stable Plan - Discharge Summary Discharge Rx Participant: No New Discharge Prescriptions: New Aspirin 81 mg PO DAILY chew Doxycycline [Vibramycin] 100 mg PO BID #14 cap metFORMIN HCL [Glucophage] 850 mg PO W/BRKFST #30 tab Metoprolol Tartrate [Lopressor] 12.5 mg PO BID #60 tab Prasterone (Dhea)/Calcium Carb [Dhea 50 mg Tablet] 1 each PO DAILY #30 tablet predniSONE 10 mg PO DAILY 9 Days #18 tab Continue Atorvastatin [Lipitor] 80 mg PO HS #30 tab Clopidogrel [Plavix] 75 mg PO DAILY 30 Days tab Albuterol Sulfate [Proair Hfa] 1 - 2 puff INHALATION RT-Q6H PRN PRN Reason: Shortness Of Breath Budesonide-Formot 160-4.5 Mcg [Symbicort 160-4.5 Mcg Inhaler] 2 puff INHALATION RT-BID #1 inh Albuterol Nebulized [Ventolin Nebulized] 2.5 mg INHALATION RT-QID PRN PRN Reason: Shortness Of Breath Discharge Medication List Atorvastatin [Lipitor] 80 mg PO HS #30 tab 08/18/16 [Rx] Clopidogrel [Plavix] 75 mg PO DAILY 30 Days tab 08/18/16 [Rx] Albuterol Sulfate [Proair Hfa] 1 - 2 puff INHALATION RT-Q6H PRN 11/07/17 [ History] Budesonide-Formot 160-4.5 Mcg [Symbicort 160-4.5 Mcg Inhaler] 2 puff INHALATION RT-BID #1 inh 11/11/17 [Rx] Albuterol Nebulized [Ventolin Nebulized] 2.5 mg INHALATION RT-QID PRN 12/08/17 [ History] Aspirin 81 mg PO DAILY chew 12/11/17 [Rx] Doxycycline [Vibramycin] 100 mg PO BID #14 cap 12/11/17 [Rx] Metoprolol Tartrate [Lopressor] 12.5 mg PO BID #60 tab 12/11/17 [Rx] Prasterone (Dhea)/Calcium Carb [Dhea 50 mg Tablet] 1 each PO DAILY #30 tablet [Rx] metFORMIN HCL [Glucophage] 850 mg PO W/BRKFST #30 tab 12/11/17 [Rx] predniSONE 10 mg PO DAILY 9 Days #18 tab 12/11/17 [Rx] Follow up Appointment(s)/Referral(s): Laron Holland DO [Primary Care Provider] - 1-2 days Simba Moss MD [STAFF PHYSICIAN] - 12/18/17 1:45 pm Nicolasa Berumen MD [STAFF PHYSICIAN] - 1 Week Ambulatory/Diagnostic Orders: Complete Blood Count w/diff [LAB.AMB] Location: Determined By Patient Comprehensive Metabolic Panel [LAB.AMB] Location: Determined By Patient Lipase [LAB.AMB] Location: Determined By Patient Discharge Disposition: HOME SELF-CARE
--- NOTE | 2017-12-18 06:46 | CDI ---
Last Revision, July 2017 Documentation Clarification Form Date: 12/18/17 From: Vesna Sriram Stephanie Ybarra, Assistant Manager Bilingual between 8:30 am & 5 pm Javier Admit Date: 12/10/2017 7:40:00 AM Patient Name: Laron Junior V Visit Number: [id number] Discharge Date: 12/11/17 ATTENTION: The Clinical Documentation Specialists (CDI) and [facility] Coding Staff appreciate your assistance in clarifying documentation. Please respond to the clarification below the line at the bottom and electronically sign. The CDI & [facility] Coding staff will review the response and follow-up if needed. Please note: Queries are made part of the Legal Health Record. If you have any questions, please contact the author of this message via ITS. Dr. Elba Joy Conflicting documentation has been found in the medical record. 12/09 Consult, 12/10 & 12/11 PN documents chronic atrial fibrillation. H&P, 12/09 & 12/10 PN & DS documents paroxysmal atrial fibrillation. History/Risk Factors: AECOPD, Ac pancreatitis Treatment: On Xarelto held not restarted In your opinion what is the most clinically appropriate diagnosis for this patient? Chronic atrial fibrillation Paroxysmal atrial fibrillation Other explanation of clinical findings Unable to determine (no explanation for clinical findings) Please continue to document in your progress notes and discharge summary in order to capture severity of illness and risk of mortality. Include clinical findings that support your diagnosis. MTDD
--- NOTE | 2018-01-23 13:11 | CDI ---
Last Revision, July 2017 Documentation Clarification Form Date: 01/23/18 From: Vesna Sriram Stephanie Ybarra, [employer] Hours-8:30 am & 5 pm M-F Admit Date: 12/10/2017 7:40:00 AM Patient Name: Laron Junior V Visit Number: [id number] Discharge Date: 12/11/17 ATTENTION: The Clinical Documentation Specialists (CDI) and [facility] Coding Staff appreciate your assistance in clarifying documentation. Please respond to the clarification below the line at the bottom and electronically sign. The CDI & [facility] Coding staff will review the response and follow-up if needed. Please note: Queries are made part of the Legal Health Record. If you have any questions, please contact the author of this message via ITS. Dr. Elba Joy Conflicting documentation has been found in the medical record. 12/09 Consult, 12/10 & 12/11 PN documents chronic atrial fibrillation. H&P, 12/09 & 12/10 PN & DS documents paroxysmal atrial fibrillation. History/Risk Factors: AECOPD, Ac pancreatitis Treatment: On Xarelto - held not restarted In your opinion what is the most clinically appropriate diagnosis for this patient? Chronic atrial fiibrillation Paroxysmal atrial fibrillation Other explanation of clinical findings Unable to determine (no explanation for clinical findings) Please continue to document in your progress notes and discharge summary in order to capture severity of illness and risk of mortality. Include clinical findings that support your diagnosis. all documents in my chart and cardiology notes point to Paroxysmal atrial fibrillation MTDD
== END 2017-12-11 13:10 | disposition home or self-care (01) | DRG 190 ==
LOC: EC 07:44 → 3OBS 10:07 → OBSVTOIN 12-10 07:40
PROVIDERS: ADMIT Family Medicine; ATTEND Family Medicine
PROC: B211YZZ Fluoroscopy of Multiple Coronary Arteries using Other Contrast (ICD-10-PCS; 2017-12-09)
PROC: 4A023N7 Measurement of Cardiac Sampling and Pressure, Left Heart, Percutaneous Approach (ICD-10-PCS; principal; 2017-12-09 09:00)
DX: J44.0 Chronic obstructive pulmonary disease with (acute) lower respiratory infection (principal); K85.90 Acute pancreatitis without necrosis or infection, unspecified; E27.40 Unspecified adrenocortical insufficiency; I71.2 Thoracic aortic aneurysm, without rupture; I48.0 Paroxysmal atrial fibrillation; I11.9 Hypertensive heart disease without heart failure; R07.89 Other chest pain; J44.1 Chronic obstructive pulmonary disease with (acute) exacerbation; I25.10 Atherosclerotic heart disease of native coronary artery without angina pectoris; J20.9 Acute bronchitis, unspecified; K21.9 Gastro-esophageal reflux disease without esophagitis; M19.91 Primary osteoarthritis, unspecified site; G47.33 Obstructive sleep apnea (adult) (pediatric); E78.2 Mixed hyperlipidemia; E66.9 Obesity, unspecified; T44.7X5A Adverse effect of beta-adrenoreceptor antagonists, initial encounter; Z68.36 Body mass index [BMI] 36.0-36.9, adult; E11.65 Type 2 diabetes mellitus with hyperglycemia; I25.2 Old myocardial infarction; I95.2 Hypotension due to drugs; R60.0 Localized edema; F17.220 Nicotine dependence, chewing tobacco, uncomplicated; Z71.6 Tobacco abuse counseling; Z79.01 Long term (current) use of anticoagulants; Z79.02 Long term (current) use of antithrombotics/antiplatelets; Z79.51 Long term (current) use of inhaled steroids; Z79.84 Long term (current) use of oral hypoglycemic drugs; Z79.899 Other long term (current) drug therapy; Z86.14 Personal history of Methicillin resistant Staphylococcus aureus infection; Z87.81 Personal history of (healed) traumatic fracture; Z90.49 Acquired absence of other specified parts of digestive tract; Z87.01 Personal history of pneumonia (recurrent); Z86.72 Personal history of thrombophlebitis; Z95.5 Presence of coronary angioplasty implant and graft; Z88.0 Allergy status to penicillin; Z82.49 Family history of ischemic heart disease and other diseases of the circulatory system; Z81.8 Family history of other mental and behavioral disorders; Z82.3 Family history of stroke
CPT/HCPCS: 36415; 71046; 71275; 80053; 80061; 82150; 82533; 82550; 82553; 83036; 83690; 83735; 83880; 84403; 84439; 84443; 84484; 85025; 85049; 85379; 85610; 85730; 93005; 93306; 93458; 94640; 94760; 99285

== ENCOUNTER 2017-12-24 23:13 | Inpatient (IN) | payer MEDICARE ==
[2017-12-24] MEDS ORDERED: ASPIRIN 81 MG PO STA (23:30)
[2017-12-24] MEDS ORDERED: NITROGLYCERIN SL TABS 0.4 MG TAB SUBLINGUAL STA ×3 (23:30)
[2017-12-24] MEDS ORDERED: IPRATROPIUM-ALBUTEROL 3 ML NEB INHALATION STA (23:35)
--- NOTE | 2017-12-24 23:39 | ED ---
General Adult HPI - General Chief complaint: Chest Pain Stated complaint: Chest pain Time Seen by Provider: 12/24/17 23:22 Source: patient, family, RN notes reviewed Mode of arrival: wheelchair Limitations: no limitations - History of Present Illness Initial comments: Patient is a pleasant 67-year-old male presenting to the emergency Department with chest discomfort. Onset was around an hour and a half ago. Discomfort feels like burning. Patient was recently in the hospital with breathing problems. Patient did have a CTA of the chest and heart catheterization done. Discomfort is moderate to severe at this time. Burning is across the chest. Patient does have associated dyspnea. Patient does have some leg swelling however this is actually better than it normally is. No calf pain. No fevers. - Related Data Home Medications Medication Instructions Recorded Confirmed Albuterol Sulfate [Proair Hfa] 1 - 2 puff INHALATION RT-Q6H PRN 11/07/17 Albuterol Nebulized [Ventolin 2.5 mg INHALATION RT-QID PRN 12/08/17 12/24/17 Nebulized] glipiZIDE [Glucotrol] 10 mg PO AC-BID 12/24/17 12/24/17 Previous Rx's Medication Instructions Recorded Atorvastatin [Lipitor] 80 mg PO HS #30 tab 08/18/16 Clopidogrel [Plavix] 75 mg PO DAILY 30 Days tab 08/18/16 Budesonide-Formot 160-4.5 Mcg 2 puff INHALATION RT-BID #1 inh 11/11/17 [Symbicort 160-4.5 Mcg Inhaler] Aspirin 81 mg PO DAILY chew 12/11/17 Metoprolol Tartrate [Lopressor] 12.5 mg PO BID #60 tab 12/11/17 Prasterone (Dhea)/Calcium Carb 1 each PO DAILY #30 tablet 12/11/17 [Dhea 50 mg Tablet] metFORMIN HCL [Glucophage] 850 mg PO W/BRKFST #30 tab 12/11/17 Allergies Allergy/AdvReac Type Severity Reaction Status Date / Time Penicillins Allergy Anaphylaxis Verified 12/24/17 23:43 Review of Systems ROS Statement: Those systems with pertinent positive or pertinent negative responses have been documented in the HPI. ROS Other: All systems not noted in ROS Statement are negative. Constitutional: Denies: fever Eyes: Denies: eye pain ENT: Denies: ear pain Respiratory: Reports: dyspnea Cardiovascular: Reports: chest pain Endocrine: Denies: fatigue Gastrointestinal: Denies: abdominal pain Genitourinary: Denies: dysuria Musculoskeletal: Denies: back pain Skin: Denies: rash Neurological: Denies: weakness Past Medical History Past Medical History: Atrial Fibrillation, Coronary Artery Disease (CAD), COPD, GERD/Reflux, Hyperlipidemia, Hypertension, Myocardial Infarction (ME), Osteoarthritis (OA), Sleep Apnea/CPAP/BIPAP Additional Past Medical History / Comment(s): COPD baseline FEV1 of 28%, obstructive sleep apnea, chronic atrial fibrillation, coronary artery disease, hyperlipidemia, obesity with BMI of 36.8, Thoracic aortic aneurysm 4.1 cm being monitored by Dr. Benentt, history of right lower extremities phlebitis, history of right wrist fracture, Last Myocardial Infarction Date:: 08/17/16 History of Any Multi-Drug Resistant Organisms: MRSA Date of last positivie culture/infection: 2007 MDRO Source:: LEFT ARM Past Surgical History: Appendectomy, Heart Catheterization With Stent Additional Past Surgical History / Comment(s): Fracture left wrist surgery, right leg vein stripping, tonsillectomy Past Anesthesia/Blood Transfusion Reactions: No Reported Reaction Date of Last Stent Placement:: 09/02/16 Past Psychological History: No Psychological Hx Reported Smoking Status: Former smoker Past Alcohol Use History: None Reported, Rare Past Drug Use History: None Reported - Past Family History Father Family Medical History: No Reported History Additional Family Medical History / Comment(s): in his 80's HAD HEART ISSUES Mother Family Medical History: No Reported History, Dementia Additional Family Medical History / Comment(s): Mother in her 80's Sister(s) Family Medical History: CVA/TIA Daughter(s) Family Medical History: No Reported History Son(s) Family Medical History: No Reported History General Exam Limitations: no limitations General appearance: alert, in no apparent distress Head exam: Present: atraumatic Eye exam: Present: normal appearance, PERRL ENT exam: Present: normal oropharynx Neck exam: Present: normal inspection Respiratory exam: Present: wheezes Cardiovascular Exam: Present: regular rate, normal rhythm Expanded Peripheral pulses: 2+: Radial (R), Radial (L), Dorsalis Pedis (R), Dorsalis Pedis (L) GI/Abdominal exam: Present: soft. Absent: tenderness Extremities exam: Present: pedal edema (+1 bilateral). Absent: calf tenderness Neurological exam: Present: alert Psychiatric exam: Present: normal affect, normal mood Skin exam: Present: normal color Course Vital Signs 12/24/17 12/24/17 12/24/17 23:21 23:29 23:42 Temperature 98.5 F Pulse Rate 89 89 88 Respiratory 24 32 H Rate Blood Pressure 160/106 157/82 O2 Sat by Pulse 96 99 Oximetry 12/24/17 12/25/17 12/25/17 23:51 00:02 00:40 Temperature Pulse Rate 102 H 101 H 74 Respiratory 26 H 24 Rate Blood Pressure 134/62 101/57 O2 Sat by Pulse 96 98 Oximetry - Reevaluation(s) Reevaluation #1: 12/24/17 23:52 Patient did have recent CTA and heart catheterization. Reports reviewed. EKG Findings - EKG Comments: EKG Findings:: Sinus rhythm. Rate 86. Motion artifact is present. QRS 92. QT 378. QTC 452. Normal axis. Low QRS voltage. No acute ST change. Medical Decision Making - Medical Decision Making Patient reevaluated. Patient states discomfort improved following nitroglycerin. Dyspnea is somewhat improved however patient still has pursed lip breathing. Case was discussed in detail with Dr. Hernandez, who will admit for Dr. Holland. - Lab Data Result diagrams: 12/24/17 23:29 12/24/17 23:29 Lab Results 12/24/17 12/24/17 12/24/17 Range/Units 23:29 23:29 23:29 WBC 7.7 (3.8-10.6) k/uL RBC 4.17 L (4.30-5.90) m/uL Hgb 13.4 (13.0-17.5) gm/dL Hct 39.4 (39.0-53.0) % MCV 94.4 (80.0-100.0) fL MCH 32.2 (25.0-35.0) pg MCHC 34.1 (31.0-37.0) g/dL RDW 14.2 (11.5-15.5) % Plt Count 127 L D (150-450) k/uL Neutrophils % 66 % Lymphocytes % 25 % Monocytes % 6 % Eosinophils % 2 % Basophils % 0 % Neutrophils # 5.1 (1.3-7.7) k/uL Lymphocytes # 1.9 (1.0-4.8) k/uL Monocytes # 0.5 (0-1.0) k/uL Eosinophils # 0.1 (0-0.7) k/uL Basophils # 0.0 (0-0.2) k/uL Poikilocytosis Slight PT (9.0-12.0) sec INR (<1.2) APTT (22.0-30.0) sec Sodium 142 (137-145) mmol/L Potassium 4.1 (3.5-5.1) mmol/L Chloride 104 (98-107) mmol/L Carbon Dioxide 26 (22-30) mmol/L Anion Gap 12 mmol/L BUN 13 (9-20) mg/dL Creatinine 0.90 (0.66-1.25) mg/dL Est GFR (CKD-EPI)AfAm >90 (>60 ml/min/1.73 sqM) Est GFR (CKD-EPI)NonAf 89 (>60 ml/min/1.73 sqM) Glucose 124 H (74-99) mg/dL Calcium 9.0 (8.4-10.2) mg/dL Magnesium 1.8 (1.6-2.3) mg/dL Total Bilirubin 1.9 H (0.2-1.3) mg/dL AST 27 (17-59) U/L ALT 47 (21-72) U/L Alkaline Phosphatase 79 (38-126) U/L Total Creatine Kinase 63 (55-170) U/L CK-MB (CK-2) 1.0 (0.0-2.4) ng/mL CK-MB (CK-2) Rel Index 1.6 Troponin I 0.025 (0.000-0.034) ng/mL NT-Pro-B Natriuret Pep pg/mL Total Protein 5.7 L (6.3-8.2) g/dL Albumin 3.5 (3.5-5.0) g/dL Amylase 103 (30-110) U/L Lipase 395 H (23-300) U/L 12/24/17 12/24/17 Range/Units 23:29 23:29 WBC (3.8-10.6) k/uL RBC (4.30-5.90) m/uL Hgb (13.0-17.5) gm/dL Hct (39.0-53.0) % MCV (80.0-100.0) fL MCH (25.0-35.0) pg MCHC (31.0-37.0) g/dL RDW (11.5-15.5) % Plt Count (150-450) k/uL Neutrophils % % Lymphocytes % % Monocytes % % Eosinophils % % Basophils % % Neutrophils # (1.3-7.7) k/uL Lymphocytes # (1.0-4.8) k/uL Monocytes # (0-1.0) k/uL Eosinophils # (0-0.7) k/uL Basophils # (0-0.2) k/uL Poikilocytosis PT 10.6 (9.0-12.0) sec INR 1.1 (<1.2) APTT 22.8 (22.0-30.0) sec Sodium (137-145) mmol/L Potassium (3.5-5.1) mmol/L Chloride (98-107) mmol/L Carbon Dioxide (22-30) mmol/L Anion Gap mmol/L BUN (9-20) mg/dL Creatinine (0.66-1.25) mg/dL Est GFR (CKD-EPI)AfAm (>60 ml/min/1.73 sqM) Est GFR (CKD-EPI)NonAf (>60 ml/min/1.73 sqM) Glucose (74-99) mg/dL Calcium (8.4-10.2) mg/dL Magnesium (1.6-2.3) mg/dL Total Bilirubin (0.2-1.3) mg/dL AST (17-59) U/L ALT (21-72) U/L Alkaline Phosphatase (38-126) U/L Total Creatine Kinase (55-170) U/L CK-MB (CK-2) (0.0-2.4) ng/mL CK-MB (CK-2) Rel Index Troponin I (0.000-0.034) ng/mL NT-Pro-B Natriuret Pep 99 pg/mL Total Protein (6.3-8.2) g/dL Albumin (3.5-5.0) g/dL Amylase (30-110) U/L Lipase (23-300) U/L - Radiology Data Radiology results: image reviewed (Chest x-ray shows pulmonary fibrotic change, no significant change compared to old exam.) Disposition Clinical Impression: COPD with acute exacerbation, Chest pain Disposition: ADMITTED IP TO THIS HOSP Is patient prescribed a controlled substance at d/c from ED?: No Referrals: Laron Holland DO [Primary Care Provider] - 1-2 days Decision Time: 01:15
[2017-12-24 23:45] LABS: Basophils % (A) 0 %; Eosinophils # (A) 0.1 k/uL (0-0.7); Eosinophils % (A) 2 %; HCT 39.4 % (39.0-53.0); HGB 13.4 gm/dL (13.0-17.5); Lymphocytes # (A) 1.9 k/uL (1.0-4.8); Lymphocytes % (A) 25 %; MCH 32.2 pg (25.0-35.0); MCHC 34.1 g/dL (31.0-37.0); MCV 94.4 fL (80.0-100.0); Mean Platelet Volume 8.3; Monocytes # (A) 0.5 k/uL (0-1.0); Monocytes % (A) 6 %; Neutrophils # (A) 5.1 k/uL (1.3-7.7); Neutrophils % (A) 66 %; Poikilocytosis Slight; RBC 4.17 m/uL (4.30-5.90); RDW 14.2 % (11.5-15.5); WBC 7.7 k/uL (3.8-10.6)
[2017-12-24 23:52] LABS: ALT 47 U/L (21-72); AST 27 U/L (17-59); Albumin 3.5 g/dL (3.5-5.0); Alkaline Phosphatase 79 U/L (38-126); Amylase 103 U/L (30-110); Anion Gap 12 mmol/L; Blood Urea Nitrogen 13 mg/dL (9-20); Carbon Dioxide 26 mmol/L (22-30); Chloride 104 mmol/L (98-107); Glucose 124 mg/dL (74-99); Lipase 395 U/L (23-300); Magnesium 1.8 mg/dL (1.6-2.3); Potassium 4.1 mmol/L (3.5-5.1); Sodium 142 mmol/L (137-145); Total Bilirubin 1.9 mg/dL (0.2-1.3); Total Protein 5.7 g/dL (6.3-8.2)
[2017-12-24 23:56] LABS: INR 1.1 (<1.2); Partial Thromboplastin Time 22.8 sec (22.0-30.0); Prothrombin Time 10.6 sec (9.0-12.0)
[2017-12-25 00:15] LABS: Platelet Count 127 k/uL (150-450); Troponin I 0.025 ng/mL (0.000-0.034)
--- NOTE | 2017-12-25 00:42 | XR ---
EXAMINATION TYPE: XR chest 2V DATE OF EXAM: 12/25/2017 COMPARISON: 12/08/2017 HISTORY: Chest pain TECHNIQUE: Frontal and lateral views of the chest are obtained. FINDINGS: There is coarse interstitial density in the lungs appear to some linear density at the martinez g bases. Heart size is normal. There is no heart failure. There is no pleural effusion. Mediastinum a ppears normal. IMPRESSION: Pulmonary fibrotic changes. Subsegmental atelectasis at the lung bases. No heart failure . No significant change compared to old exam.
[2017-12-25] MEDS ORDERED: FAMOTIDINE 20 MG/2 ML VIAL IV STA (01:13)
[2017-12-25] MEDS ORDERED: methylPREDNISolone SOD SUCCI 125 MG/2 ML VIAL IV STA (01:15)
[2017-12-25] MEDS ORDERED: IPRATROPIUM-ALBUTEROL 3 ML NEB INHALATION PRN (01:15)
[2017-12-25] MEDS ORDERED: NITROGLYCERIN SL TABS 0.4 MG TAB SUBLINGUAL PRN (01:17)
--- NOTE | 2017-12-25 02:06 | XR ---
EXAMINATION TYPE: XR abdomen 1V DATE OF EXAM: 12/25/2017 COMPARISON: 2009 HISTORY: Short of breath TECHNIQUE: 3 views FINDINGS: Bowel gas pattern is normal. There is no sign of intestinal obstruction or pneumoperitoneum . Fecal pattern is normal. Lung bases are clear. There are no pathologic calcifications over the kidn eys. IMPRESSION: Nonacute abdomen. No adverse change compared to old exam.
--- NOTE | 2017-12-25 02:48 | US ---
EXAMINATION TYPE: US abdomen complete DATE OF EXAM: 12/25/2017 COMPARISON: NONE CLINICAL HISTORY: Pain. pain hx of AAA. Exam limitations due to body habitus. EXAM MEASUREMENTS: Liver Length: 20.1 cm Gallbladder Wall: 0.3 cm CBD: 0.4 cm Spleen: 12.3 cm Right Kidney: 10.8 x 5.7 x 4.1 cm Left Kidney: 12.4 x 6.5 x 5.1 cm Pancreas: echogenic tail obscured by bowel gas. Liver: Increased attenuation Hepatomegaly. Gallbladder: Hydropic 11.4 cm no stones seen. Evidence for sonographic Smith's sign: No CBD: wnl Spleen: wnl Right Kidney: Cortical thinning Left Kidney: Cortical thinning Upper IVC: wnl Abd Aorta: Dilated mid to distal measuring 4.2cm. AAA mid to distal measuring 4.2cm. Gallbladder is hydropic 11.4cm. IMPRESSION: No evidence of renal mass or obstruction. No gallstones or dilated ducts. Gallbladder is large but does not appear enlarged. There is probably fatty infiltration of the liver. 4.2 cm abdominal aortic aneurysm.
[2017-12-25] MEDS: IPRATROPIUM-ALBUTEROL 3 ML NEB INHALATION SCH ×4 (07:28→19:28)
[2017-12-25 07:55] LABS: Creatine Kinase MB 0.9 ng/mL (0.0-2.4); Troponin I 0.023 ng/mL (0.000-0.034)
[2017-12-25] MEDS: methylPREDNISolone SOD SUCCI 125 MG/2 ML VIAL IV SCH ×4 (08:22→23:19)
[2017-12-25] MEDS: NITROGLYCERIN OINT 1 INCH/GM PACKET TOPICAL SCH ×4 (08:22→23:20)
[2017-12-25] MEDS ORDERED: ASPIRIN 325 MG TAB PO SCH (09:00)
[2017-12-25 11:50] LABS: Glucose,Whole Blood 230 mg/dL (75-99)
--- NOTE | 2017-12-25 11:55 | P.CNPUL ---
History of Present Illness Consult date: 12/25/17 Requesting physician: Aneta Hernandez Reason for consult: dyspnea, cough, COPD, obstructive sleep apnea Chief complaint: Shortness of breath, burning incision in the chest, cough History of present illness: Laron is a 67-year-old White male patient of Dr. Holland also follows with Dr. Berumen in the pulmonary office for his history of COPD and obstructive sleep apnea, presented to the emergency department on 12/24/2017 at 2313 with complaints of sudden onset of bilateral chest discomfort, shortness of breath, cough with production of clear sputum. Described the chest discomfort as burning on bilateral sides of lungs, anteriorly and posteriorly. He was watching TV when it happened. Patient had associated dyspnea with it. Denied any fever, did have some night sweats last night. EKG showed sinus arrhythmia with PACs, without acute ST or T-wave changes. Patient was given some sublingual nitro and his chest discomfort has improved. Chest x-ray showed pulmonary fibrotic changes, subsegmental atelectasis at the lung bases, no evidence of heart failure, overall this was a stable exam compared to previous chest x-ray from 12/08/2017. Labs showed WBC within normal limits of 7.7, hemoglobin is 13.4, electrolytes and renal profile were within normal limits, proBNP was 99, troponins and cardiac enzymes were negative 2. Amylase was 103 , and lipase 395, and this is improved from his last hospitalization. Total bilirubin was 1.9, during previous hospitalization it topped at 2.5. Patient does have some abdominal burning as well. X-ray of the abdomen showed nonacute abdomen. Abdominal ultrasound showed hepatomegaly with probable fatty infiltration of the liver, common bile duct and spleen were within normal limits , abdominal aortic aneurysm measuring 4.2 cm, no evidence of renal mass or obstruction. No gallstones. Patient has underlying history of A. fib, coronary artery disease with previous stenting, GERD/reflux, hyperlipidemia, hypertension, previous MIs, advanced COPD, and obstructive sleep apnea on CPAP therapy. Also has a abdominal aortic aneurysm of 4.1 cm being monitored by Dr. Bennett. Patient is a former smoker, he quit over 10 years ago. He was recently hospitalized for an acute COPD exacerbation and some chest discomfort, patient underwent heart catheterization and there was no evidence of any acute coronary abnormalities, and the patient was found to have patent stents. He was treated for COPD exacerbation with steroids, nebulized bronchodilators, and empiric antibiotics and was discharged home in stable condition on 12/11/2017. Review of Systems All systems: negative Constitutional: Denies chills, Denies fever Eyes: denies blurred vision, denies pain Ears, nose, mouth and throat: Denies headache, Denies sore throat Cardiovascular: Denies chest pain, Denies shortness of breath Respiratory: Reports cough with sputum, Reports dyspnea, Reports home oxygen, Reports sleep apnea, Denies cough Gastrointestinal: Reports as per HPI, Reports heartburn, Denies abdominal pain, Denies diarrhea, Denies nausea, Denies vomiting Musculoskeletal: Denies myalgias Integumentary: Denies pruritus, Denies rash Neurological: Denies numbness, Denies weakness Psychiatric: Denies anxiety, Denies depression Endocrine: Denies fatigue, Denies weight change Past Medical History Past Medical History: Atrial Fibrillation, Coronary Artery Disease (CAD), COPD, GERD/Reflux, Hyperlipidemia, Hypertension, Myocardial Infarction ([place]), Osteoarthritis (OA), Sleep Apnea/CPAP/BIPAP Additional Past Medical History / Comment(s): COPD baseline FEV1 of 28%, obstructive sleep apnea, chronic atrial fibrillation, coronary artery disease, hyperlipidemia, obesity with BMI of 36.8, Thoracic aortic aneurysm 4.1 cm being monitored by Dr. Bennett, history of right lower extremities phlebitis, history of right wrist fracture, Last Myocardial Infarction Date:: 08/17/16 History of Any Multi-Drug Resistant Organisms: MRSA Date of last positivie culture/infection: 2007 MDRO Source:: LEFT ARM Past Surgical History: Appendectomy, Heart Catheterization With Stent Additional Past Surgical History / Comment(s): Fracture left wrist surgery, right leg vein stripping, tonsillectomy Past Anesthesia/Blood Transfusion Reactions: No Reported Reaction Date of Last Stent Placement:: 09/02/16 Past Psychological History: No Psychological Hx Reported Smoking Status: Former smoker Past Alcohol Use History: None Reported, Rare Past Drug Use History: None Reported - Past Family History Father Family Medical History: No Reported History Additional Family Medical History / Comment(s): in his 80's HAD HEART ISSUES Mother Family Medical History: No Reported History, Dementia Additional Family Medical History / Comment(s): Mother in her 80's Sister(s) Family Medical History: CVA/TIA Daughter(s) Family Medical History: No Reported History Son(s) Family Medical History: No Reported History Medications and Allergies Home Medications Medication Instructions Recorded Confirmed Type Atorvastatin [Lipitor] 80 mg PO HS #30 tab 08/18/16 12/24/17 Rx Clopidogrel [Plavix] 75 mg PO DAILY 30 Days tab 08/18/16 12/24/17 Rx Albuterol Sulfate [Proair Hfa] 1 - 2 puff INHALATION RT-Q6H PRN 11/07/17 History Budesonide-Formot 160-4.5 Mcg 2 puff INHALATION RT-BID #1 inh 11/11/17 12/24/17 Rx [Symbicort 160-4.5 Mcg Inhaler] Albuterol Nebulized [Ventolin 2.5 mg INHALATION RT-QID PRN 12/08/17 12/24/17 History Nebulized] Aspirin 81 mg PO DAILY chew 12/11/17 12/24/17 Rx Metoprolol Tartrate [Lopressor] 12.5 mg PO BID #60 tab 12/11/17 12/24/17 Rx Prasterone (Dhea)/Calcium Carb 1 each PO DAILY #30 tablet 12/11/17 12/24/17 Rx [Dhea 50 mg Tablet] metFORMIN HCL [Glucophage] 850 mg PO W/BRKFST #30 tab 12/11/17 12/24/17 Rx glipiZIDE [Glucotrol] 10 mg PO AC-BID 12/24/17 12/24/17 History Allergies Allergy/AdvReac Type Severity Reaction Status Date / Time Penicillins Allergy Anaphylaxis Verified 12/24/17 23:43 Physical Exam Vitals: Vital Signs Temp Pulse Resp BP Pulse Ox 12/25/17 08:29 62 12/25/17 07:38 62 12/25/17 07:35 20 12/25/17 07:32 98.3 F 102 H 22 124/60 96 12/25/17 07:28 61 12/25/17 04:35 85 22 131/63 99 12/25/17 02:45 75 22 127/60 98 12/25/17 01:46 91 22 118/60 98 12/25/17 00:40 74 24 101/57 98 12/25/17 00:02 101 H 26 H 134/62 96 12/24/17 23:51 102 H 12/24/17 23:42 88 12/24/17 23:29 89 32 H 157/82 99 12/24/17 23:21 98.5 F 89 24 160/106 96 Intake and Output 12/24/17 12/25/17 12/25/17 22:59 06:59 14:59 Other: Weight 128.67 kg - Constitutional General appearance: morbidly obese, no acute distress - EENT Eyes: EOMI, dentition normal ENT: NA/AT, normal oropharynx Ears: bilateral: normal - Neck Neck: no lymphadenopathy, normal ROM Carotids: bilateral: upstroke normal Thyroid: bilateral: normal size - Respiratory Respiratory: bilateral: diminished, prolonged expiration - Cardiovascular Rhythm: regular Heart sounds: normal: S1, S2 ankle Peripheral Edema: right: 1+, left: None dorsalis pedis Peripheral Pulses: bilateral: Normal radial pulse Peripheral Pulses: bilateral: Normal - Gastrointestinal General gastrointestinal: distended, normal bowel sounds, no organomegaly, soft , no tenderness - Integumentary There is chronic skin discoloration in bilateral lower extremities consistent with venous insufficiency Integumentary: normal - Neurologic Neurologic: CNII-XII intact - Musculoskeletal Musculoskeletal: gait normal, strength equal bilaterally - Psychiatric Psychiatric: A&O x's 3, appropriate affect, intact judgment & insight Results - Laboratory Findings CBC and BMP: 12/24/17 23:29 12/24/17 23:29 PT/INR, D-dimer PT 10.6 sec (9.0-12.0) 12/24/17 23:29 INR 1.1 (<1.2) 12/24/17 23:29 Abnormal lab findings: Abnormal Labs 12/24/17 12/24/17 23:29 23:29 RBC 4.17 L Plt Count 127 L D Glucose 124 H Total Bilirubin 1.9 H Total Protein 5.7 L Lipase 395 H - Diagnostic Findings Chest x-ray: report reviewed, image reviewed Additional studies: Twelve-lead EKG reviewed, abdominal x-ray, and abdominal ultrasound results reviewed Assessment and Plan Plan: Assessment: #1. Increased dyspnea, cough with sputum production, likely related to a mild COPD exacerbation, chest x-ray did not show any evidence of failure, or pneumonia. There are chronic pulmonary fibrotic changes at the lung bases #2. Burning chest discomfort, and the patient's cardiac enzymes and troponins have been negative 2, there are no acute ST changes seen on the EKG, the patient has recently underwent heart catheterization during his last hospitalization in November which showed patent coronary stents #3. Subacute pancreatitis, and the patient's lipase has improved from last hospitalization. Ultrasound of the abdomen was negative for any evidence of common bile duct obstruction, there was hepatomegaly with suspected fatty infiltration of the liver #4. GERD/reflux #5. Obesity #6. History of coronary artery disease with previous stenting #7. History of advanced COPD with an underlying FEV1 of 20% of predicted #8. Upstroke to of sleep apnea with an AHI of 17, and patient is on CPAP therapy with a pressure of 13 cm of water. Patient compliant with his CPAP therapy #9. History of chronic atrial fibrillation, currently in sinus rhythm #10. History of mixed hyperlipidemia #11. Hypertension #12. 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 Abdominal aortic aneurysm #14. History of nicotine dependence, in remission, and the patient quit 10 years ago Plan: Continue DuoNeb nebulized treatments, we will add Symbicort, continue IV Solu- Medrol, need for empiric antibiotics, patient had recently completed a course of doxycycline. Patient states his breathing is easier today, and his burning sensation in his chest has subsided, responded to sublingual nitroglycerin. He is awaiting to be evaluated by cardiology, however so far his cardiac workup has been negative. From our standpoint patient is stable to go to regular medical surgical floor with remote telemetry. Overall is improving, he will need his CPAP unit from home at settings previously prescribed. We'll continue to follow I performed a history & physical examination of the patient and discussed their management with my nurse practitioner, Lety Chaparro. I reviewed the nurse practitioner's note and agree with the documented findings and plan of care. Lung sounds are positive for diminished lung sounds, prolongation of the expiratory phase. The findings and the impression was discussed with the patient. I attest to the documentation by the nurse practitioner. Time with Patient: Greater than 30
[2017-12-25] MEDS ORDERED: metFORMIN 850 MG TAB PO SCH (12:00)
[2017-12-25] MEDS ORDERED: CLOPIDOGREL 75 MG TAB PO SCH (12:00)
[2017-12-25 13:05] LABS: Troponin I 0.02 ng/mL (0.000-0.034)
[2017-12-25 13:29] LABS: Glucose,Whole Blood 319 mg/dL (75-99)
[2017-12-25] MEDS ORDERED: INSULIN ASPART 100 UNIT/ML 1 ML 10 ML VIAL SQ STA (13:50)
--- NOTE | 2017-12-25 14:02 | P.HPIM ---
History of Present Illness H&P Date: 12/25/17 Chief Complaint: dyspnea with pleurisy This is a 67-year-old male one of the cervical with a previous medical history significant for paroxysmal atrial fibrillation, hypertension and hypertensive cardio vascular disease, hyperlipidemia, history of obesity with obstructive sleep apnea, CAD with ST elevation [place] post-PCI of the RCA back in August 2016 patient was recently hospitalized at [facility] on 12/08/2017 after he was admitted to the hospital for appears to be chest pain and he ended up going for heart catheter physician that did not show any evidence of acute of normalities, patient was brought into the ER yesterday after he was sitting down watching the [employer] came around 10:00 in the evening when he developed to have a significant burning sensation around his chest and back and the patient was placed on a CPAP at home he did not feel any better, his ended up bringing him to the ER at [facility] had an EKG did not show any evidence of acute of normalities, however because of his presentation was kept in the hospital for acute exacerbation of COPD. Pulmonary and cardiology consultation were obtained. Review of Systems Constitutional: Reports weight gain, Denies chills, Denies chronic headaches, Denies lethargy Eyes: denies blurred vision, denies bulging eye, denies decreased vision Ears: deny: decreased hearing Ears, nose, mouth and throat: Denies dysphagia Cardiovascular: Reports chest pain, Reports decreased exercise tolerance, Reports dyspnea on exertion, Reports high blood pressure, Reports irregular heart beat, Reports rapid heart beat, Reports shortness of breath, Denies syncope Respiratory: Reports cough, Reports cough with sputum, Reports dyspnea, Reports home oxygen, Reports sleep apnea, Reports snoring, Reports wheezing Gastrointestinal: Denies abdominal pain, Denies bloating, Denies BRBPR, Denies heartburn, Denies melena, Denies nausea, Denies vomiting Genitourinary: Denies dysuria, Denies nocturia, Denies polyuria Musculoskeletal: Denies myalgias Musculoskeletal: absent: ankle pain, ankle stiffness, ankle swelling, elbow pain , elbow stiffness, elbow swelling, foot pain, foot stiffness, foot swelling, hand pain, hand stiffness, hand swelling, hip pain, hip stiffness, hip swelling , knee pain, knee stiffness, knee swelling, shoulder pain, shoulder stiffness, shoulder swelling, wrist pain, wrist stiffness, wrist swelling Integumentary: Denies pruritus, Denies rash Neurological: Denies numbness, Denies weakness Psychiatric: Denies anxiety, Denies depression Endocrine: Denies fatigue, Denies weight change Past Medical History Past Medical History: Atrial Fibrillation, Coronary Artery Disease (CAD), COPD, Diabetes Mellitus, GERD/Reflux, Hyperlipidemia, Hypertension, Myocardial Infarction ([place]), Osteoarthritis (OA), Sleep Apnea/CPAP/BIPAP Additional Past Medical History / Comment(s): COPD baseline FEV1 of 28%, obstructive sleep apnea, chronic atrial fibrillation, coronary artery disease, hyperlipidemia, obesity with BMI of 36.8, Thoracic aortic aneurysm 4.1 cm being monitored by Dr. Bennett, history of right lower extremities phlebitis, history of right wrist fracture, Last Myocardial Infarction Date:: 08/17/16 History of Any Multi-Drug Resistant Organisms: MRSA Date of last positivie culture/infection: 2007 MDRO Source:: LEFT ARM Past Surgical History: Appendectomy, Heart Catheterization With Stent Additional Past Surgical History / Comment(s): Fracture left wrist surgery, right leg vein stripping, tonsillectomy Past Anesthesia/Blood Transfusion Reactions: No Reported Reaction Date of Last Stent Placement:: 09/02/16 Past Psychological History: No Psychological Hx Reported Smoking Status: Former smoker Past Alcohol Use History: None Reported, Rare Past Drug Use History: None Reported - Past Family History Father Family Medical History: No Reported History Additional Family Medical History / Comment(s): in his 80's HAD HEART ISSUES Mother Family Medical History: No Reported History, Dementia Additional Family Medical History / Comment(s): Mother in her 80's Sister(s) Family Medical History: CVA/TIA Daughter(s) Family Medical History: No Reported History Son(s) Family Medical History: No Reported History Medications and Allergies Home Medications Medication Instructions Recorded Confirmed Type Atorvastatin [Lipitor] 80 mg PO HS #30 tab 08/18/16 12/24/17 Rx Clopidogrel [Plavix] 75 mg PO DAILY 30 Days tab 08/18/16 12/24/17 Rx Albuterol Sulfate [Proair Hfa] 1 - 2 puff INHALATION RT-Q6H PRN 11/07/17 History Budesonide-Formot 160-4.5 Mcg 2 puff INHALATION RT-BID #1 inh 11/11/17 12/24/17 Rx [Symbicort 160-4.5 Mcg Inhaler] Albuterol Nebulized [Ventolin 2.5 mg INHALATION RT-QID PRN 12/08/17 12/24/17 History Nebulized] Aspirin 81 mg PO DAILY chew 12/11/17 12/24/17 Rx Metoprolol Tartrate [Lopressor] 12.5 mg PO BID #60 tab 12/11/17 12/24/17 Rx Prasterone (Dhea)/Calcium Carb 1 each PO DAILY #30 tablet 12/11/17 12/24/17 Rx [Dhea 50 mg Tablet] metFORMIN HCL [Glucophage] 850 mg PO W/BRKFST #30 tab 12/11/17 12/24/17 Rx glipiZIDE [Glucotrol] 10 mg PO AC-BID 12/24/17 12/24/17 History Allergies Allergy/AdvReac Type Severity Reaction Status Date / Time Penicillins Allergy Anaphylaxis Verified 12/24/17 23:43 Physical Exam Vitals: Vital Signs Temp Pulse Resp BP Pulse Ox 12/25/17 12:54 79 16 102/49 96 12/25/17 12:00 98 F 76 18 128/62 97 12/25/17 11:42 18 12/25/17 11:39 70 12/25/17 11:29 69 12/25/17 08:29 62 12/25/17 07:38 62 12/25/17 07:35 20 12/25/17 07:32 98.3 F 102 H 22 124/60 96 12/25/17 07:28 61 12/25/17 04:35 85 22 131/63 99 12/25/17 02:45 75 22 127/60 98 12/25/17 01:46 91 22 118/60 98 12/25/17 00:40 74 24 101/57 98 12/25/17 00:02 101 H 26 H 134/62 96 12/24/17 23:51 102 H 12/24/17 23:42 88 12/24/17 23:29 89 32 H 157/82 99 12/24/17 23:21 98.5 F 89 24 160/106 96 Intake and Output 12/24/17 12/25/17 12/25/17 22:59 06:59 14:59 Other: Weight 128.67 kg - Constitutional General appearance: mild distress, obese - EENT Eyes: anicteric sclerae, EOMI, PERRLA, no ptosis, no scleral icterus, normal appearance ENT: hearing grossly normal, NA/AT, normal oropharynx, no thrush Ears: bilateral: normal - Neck Neck: no lymphadenopathy, normal ROM, no rigidity, no stridor, no thyromegaly Carotids: bilateral: upstroke normal Thyroid: bilateral: normal size - Respiratory Respiratory: bilateral: diminished, rhonchi, wheezing, prolonged expiration, negative: dullness, rales - Cardiovascular Rhythm: irregularly irregular Heart sounds: normal: S1, S2 Abnormal Heart Sounds: systolic murmur - Gastrointestinal General gastrointestinal: normal bowel sounds, soft, no splenomegaly, no tenderness, no umbilical hernia - Integumentary Integumentary: normal, normal turgor - Neurologic Neurologic: CNII-XII intact - Musculoskeletal Musculoskeletal: strength equal bilaterally - Psychiatric Psychiatric: A&O x's 3, appropriate affect, intact judgment & insight Results CBC & Chem 7: 12/24/17 23:29 12/24/17 23:29 Labs: Abnormal Lab Results - Last 24 Hours (Table) 12/24/17 12/24/17 12/25/17 Range/Units 23:29 23:29 11:45 RBC 4.17 L (4.30-5.90) m/uL Plt Count 127 L D (150-450) k/uL Glucose 124 H (74-99) mg/dL POC Glucose (mg/dL) 230 H (75-99) mg/dL Total Bilirubin 1.9 H (0.2-1.3) mg/dL Total Protein 5.7 L (6.3-8.2) g/dL Lipase 395 H (23-300) U/L 12/25/17 Range/Units 13:24 RBC (4.30-5.90) m/uL Plt Count (150-450) k/uL Glucose (74-99) mg/dL POC Glucose (mg/dL) 319 H (75-99) mg/dL Total Bilirubin (0.2-1.3) mg/dL Total Protein (6.3-8.2) g/dL Lipase (23-300) U/L Thrombosis Risk Factor Assmnt - DVT/VTE Prophylaxis DVT/VTE Prophylaxis: Pharmacologic Prophylaxis ordered, Mechanical Prophylaxis ordered - Choose All That Apply Any of the Below Risk Factors Present?: Yes Each Factor Represents 1 point: Abnormal pulmonary function (COPD), Obesity ( BMI >25) Other Risk Factors: Yes Each Risk Factor Represents 2 Points: Age 61-74 years Other congenital or acquired thrombophilia - If yes, enter type in comment: No Thrombosis Risk Factor Assessment Total Risk Factor Score: 4 Thrombosis Risk Factor Assessment Level: Moderate Risk Assessment and Plan Assessment: Assessment and plan: 1. Acute respiratory failure due to COPD exacerbation with pleurisy. Continue patient on Solu-Medrol 60 mg IV push every 6 hours around the clock, continue patient on nebulized treatment DuoNeb 3 mL 4 times every day, continue Symbicort 160/4.5 g 2 puffs twice every day, continue oxygen support, pulmonary consultation appreciated. 2. History of CAD post-PCI of the RCA back degenerative thousand 17. Patient did have a heart catheterization about 2 weeks ago and did not show any evidence of a new lesions, we will maintain the patient on Lopressor 12.5 mg orally twice every day, Lipitor 80 mg orally once every day, aspirin 81 mg orally once every day, Plavix 75 mg orally once every day. 3. Diabetes mellitus type 2. Continue patient on consistent carbohydrate diet will continue patient on metformin 850 mg orally twice every day, glipizide 10 mg orally twice every day, start the patient on sliding scale insulin. 4. Hyperlipidemia. Continue patient on Lipitor 80 mg orally once every day. 5. Osteoarthritis. Stable at this point in time. 6. GERD. Stable at this time. Continue with PPI. 7. Obstructive sleep apnea. Continue CPAP. 8. DVT prophylaxis. Continue Lovenox 40 mg subcutaneously every 24 hours. 9. GI prophylaxis. Continue patient on PPI. 10. Admit to inpatient. Estimated a length of stay 2 midnights. 11. Full code.
[2017-12-25] MEDS: glipiZIDE 10 MG TAB PO SCH ×2 (14:34→19:36)
[2017-12-25] MEDS: INSULIN ASPART 100 UNIT/ML 1 ML 10 ML VIAL SQ SCH ×3 (14:35→20:57)
[2017-12-25] MEDS: guaiFENesin 600 MG TABLET.ER PO SCH ×2 (16:08→20:57)
[2017-12-25 17:21] LABS: Glucose,Whole Blood 272 mg/dL (75-99)
[2017-12-25 17:24] VITALS: BMI 38.5
[2017-12-25] MEDS ORDERED: glipiZIDE 10 MG TAB PO SCH (17:30)
[2017-12-25] MEDS: SYMBICORT 160-4.5 MCG INHALER INHALATION SCH (19:28)
[2017-12-25] MEDS ORDERED: SYMBICORT 160-4.5 MCG INHALER INHALATION SCH (20:00)
[2017-12-25 20:40] LABS: Glucose,Whole Blood 251 mg/dL (75-99)
[2017-12-25] MEDS: METOPROLOL TARTRATE 12.5 MG TAB PO SCH (20:57)
[2017-12-25] MEDS ORDERED: METOPROLOL TARTRATE 12.5 MG TAB PO SCH (21:00)
[2017-12-25] MEDS ORDERED: ATORVASTATIN 80 MG TAB PO SCH ×2 (21:00)
[2017-12-25 23:03] VITALS: RESP 18
[2017-12-26 05:55] VITALS: BP 97/56; TEMP 97.5
[2017-12-26] MEDS: NITROGLYCERIN OINT 1 INCH/GM PACKET TOPICAL SCH ×2 (05:59→11:50)
[2017-12-26] MEDS: methylPREDNISolone SOD SUCCI 125 MG/2 ML VIAL IV SCH ×2 (06:00→11:53)
[2017-12-26] MEDS: IPRATROPIUM-ALBUTEROL 3 ML NEB INHALATION SCH ×2 (07:08→10:42)
[2017-12-26] MEDS: SYMBICORT 160-4.5 MCG INHALER INHALATION SCH (07:08)
[2017-12-26 07:18] LABS: Glucose,Whole Blood 181 mg/dL (75-99)
[2017-12-26] MEDS ORDERED: metFORMIN 850 MG TAB PO SCH (07:30)
[2017-12-26] MEDS: glipiZIDE 10 MG TAB PO SCH (08:17)
[2017-12-26] MEDS: guaiFENesin 600 MG TABLET.ER PO SCH (08:17)
[2017-12-26] MEDS: METOPROLOL TARTRATE 12.5 MG TAB PO SCH (08:17)
[2017-12-26] MEDS: INSULIN ASPART 100 UNIT/ML 1 ML 10 ML VIAL SQ SCH ×2 (08:17→12:02)
[2017-12-26] MEDS ORDERED: ASPIRIN 81 MG PO SCH (09:00)
[2017-12-26] MEDS ORDERED: ENOXAPARIN 40 MG/0.4 ML SYRINGE SQ SCH (09:00)
[2017-12-26] MEDS ORDERED: CLOPIDOGREL 75 MG TAB PO SCH (09:00)
[2017-12-26 10:27] LABS: Basophils % (A) 0 %; Eosinophils % (A) 0 %; HCT 35.6 % (39.0-53.0); HGB 12.2 gm/dL (13.0-17.5); Lymphocytes # (A) 0.6 k/uL (1.0-4.8); Lymphocytes % (A) 5 %; MCH 32.9 pg (25.0-35.0); MCHC 34.4 g/dL (31.0-37.0); MCV 95.9 fL (80.0-100.0); Mean Platelet Volume 7.7; Monocytes # (A) 0.2 k/uL (0-1.0); Monocytes % (A) 2 %; Neutrophils # (A) 10.9 k/uL (1.3-7.7); Neutrophils % (A) 93 %; Platelet Count 127 k/uL (150-450); Poikilocytosis Slight; RBC 3.71 m/uL (4.30-5.90); RDW 14.2 % (11.5-15.5); WBC 11.7 k/uL (3.8-10.6)
[2017-12-26 10:34] LABS: ALT 37 U/L (21-72); AST 19 U/L (17-59); Albumin 3.1 g/dL (3.5-5.0); Alkaline Phosphatase 65 U/L (38-126); Anion Gap 11 mmol/L; Blood Urea Nitrogen 17 mg/dL (9-20); Calcium 8.9 mg/dL (8.4-10.2); Carbon Dioxide 26 mmol/L (22-30); Chloride 104 mmol/L (98-107); Cholesterol 119 mg/dL (<200); Glucose 236 mg/dL (74-99); HDL Cholesterol 43 mg/dL (40-60); LDL Cholesterol,Calculated 60 mg/dL (0-99); Potassium 5.1 mmol/L (3.5-5.1); Sodium 141 mmol/L (137-145); Total Bilirubin 1.3 mg/dL (0.2-1.3); Total Protein 5.1 g/dL (6.3-8.2); Triglycerides 80 mg/dL (<150)
[2017-12-26 10:52] VITALS: PULSE 86
--- NOTE | 2017-12-26 11:07 | P.PN ---
Subjective Progress Note Date: 12/26/17 Principal diagnosis: Mild COPD exacerbation Laron is a 67-year-old White male patient of Dr. Holland also follows with Dr. Berumen in the pulmonary office for his history of COPD and obstructive sleep apnea, presented to the emergency department on 12/24/2017 at 2313 with complaints of sudden onset of bilateral chest discomfort, shortness of breath, cough with production of clear sputum. Described the chest discomfort as burning on bilateral sides of lungs, anteriorly and posteriorly. He was watching TV when it happened. Patient had associated dyspnea with it. Denied any fever, did have some night sweats last night. EKG showed sinus arrhythmia with PACs, without acute ST or T-wave changes. Patient was given some sublingual nitro and his chest discomfort has improved. Chest x-ray showed pulmonary fibrotic changes, subsegmental atelectasis at the lung bases, no evidence of heart failure, overall this was a stable exam compared to previous chest x-ray from 12/08/2017. Labs showed WBC within normal limits of 7.7, hemoglobin is 13.4, electrolytes and renal profile were within normal limits, proBNP was 99, troponins and cardiac enzymes were negative 2. Amylase was 103 , and lipase 395, and this is improved from his last hospitalization. Total bilirubin was 1.9, during previous hospitalization it topped at 2.5. Patient does have some abdominal burning as well. X-ray of the abdomen showed nonacute abdomen. Abdominal ultrasound showed hepatomegaly with probable fatty infiltration of the liver, common bile duct and spleen were within normal limits , abdominal aortic aneurysm measuring 4.2 cm, no evidence of renal mass or obstruction. No gallstones. Patient has underlying history of A. fib, coronary artery disease with previous stenting, GERD/reflux, hyperlipidemia, hypertension, previous MIs, advanced COPD, and obstructive sleep apnea on CPAP therapy. Also has a abdominal aortic aneurysm of 4.1 cm being monitored by Dr. Bennett. Patient is a former smoker, he quit over 10 years ago. He was recently hospitalized for an acute COPD exacerbation and some chest discomfort, patient underwent heart catheterization and there was no evidence of any acute coronary abnormalities, and the patient was found to have patent stents. He was treated for COPD exacerbation with steroids, nebulized bronchodilators, and empiric antibiotics and was discharged home in stable condition on 12/11/2017. On 12/26/2017 patient seen in follow-up. Denies any burning chest pain, denies any worsening dyspnea. He is resting in bed, in no acute distress, he states his breathing is easier today, has occasional coughing with production of clear sputum. Has been treated with IV steroids, nebulized bronchodilators. Today's labs were reviewed, she is 11.7 hemoglobin is 12.2, electrolytes and renal profile were within normal limits. Patient is afebrile, vital signs are stable. Patient is wearing 2 L per nasal cannula with O2 sat at 95%. Lung sounds are positive for a few rhonchi at the left lower base, no wheezes noted. From pulmonary standpoint patient , and is stable for discharge home today Objective - Vital Signs Vital signs: Vital Signs Temp 97.5 F L 12/26/17 05:24 Pulse 86 12/26/17 10:52 Resp 18 12/26/17 05:24 BP 97/56 12/26/17 05:24 Pulse Ox 95 12/26/17 10:00 Intake & Output 12/25/17 12/26/17 12/26/17 18:59 06:59 18:59 Weight 128.67 kg 128.67 kg Other: Voiding Method Toilet Toilet # Voids 2 1 - Exam Constitutional General appearance: morbidly obese, no acute distress - EENT Eyes: EOMI, dentition normal ENT: NA/AT, normal oropharynx Ears: bilateral: normal - Neck Neck: no lymphadenopathy, normal ROM Carotids: bilateral: upstroke normal Thyroid: bilateral: normal size - Respiratory Respiratory: bilateral: diminished, prolonged expiration - Cardiovascular Rhythm: regular Heart sounds: normal: S1, S2 ankle Peripheral Edema: right: 1+, left: None dorsalis pedis Peripheral Pulses: bilateral: Normal radial pulse Peripheral Pulses: bilateral: Normal - Gastrointestinal General gastrointestinal: distended, normal bowel sounds, no organomegaly, soft , no tenderness - Integumentary There is chronic skin discoloration in bilateral lower extremities consistent with venous insufficiency Integumentary: normal - Neurologic Neurologic: CNII-XII intact - Musculoskeletal Musculoskeletal: gait normal, strength equal bilaterally - Psychiatric Psychiatric: A&O x's 3, appropriate affect, intact judgment & insight - Labs CBC & Chem 7: 12/26/17 08:44 12/26/17 08:44 Labs: Abnormal Lab Results - Last 24 Hours (Table) 12/25/17 12/25/17 12/25/17 Range/Units 11:45 13:24 16:54 WBC (3.8-10.6) k/uL RBC (4.30-5.90) m/uL Hgb (13.0-17.5) gm/dL Hct (39.0-53.0) % Plt Count (150-450) k/uL Neutrophils # (1.3-7.7) k/uL Lymphocytes # (1.0-4.8) k/uL Glucose (74-99) mg/dL POC Glucose (mg/dL) 230 H 319 H 272 H (75-99) mg/dL Total Protein (6.3-8.2) g/dL Albumin (3.5-5.0) g/dL 12/25/17 12/26/17 12/26/17 Range/Units 20:39 07:08 08:44 WBC (3.8-10.6) k/uL RBC (4.30-5.90) m/uL Hgb (13.0-17.5) gm/dL Hct (39.0-53.0) % Plt Count (150-450) k/uL Neutrophils # (1.3-7.7) k/uL Lymphocytes # (1.0-4.8) k/uL Glucose 236 H (74-99) mg/dL POC Glucose (mg/dL) 251 H 181 H (75-99) mg/dL Total Protein 5.1 L (6.3-8.2) g/dL Albumin 3.1 L (3.5-5.0) g/dL 12/26/17 Range/Units 08:44 WBC 11.7 H (3.8-10.6) k/uL RBC 3.71 L (4.30-5.90) m/uL Hgb 12.2 L (13.0-17.5) gm/dL Hct 35.6 L (39.0-53.0) % Plt Count 127 L (150-450) k/uL Neutrophils # 10.9 H (1.3-7.7) k/uL Lymphocytes # 0.6 L (1.0-4.8) k/uL Glucose (74-99) mg/dL POC Glucose (mg/dL) (75-99) mg/dL Total Protein (6.3-8.2) g/dL Albumin (3.5-5.0) g/dL Assessment and Plan Plan: Assessment: #1. Mild COPD exacerbation, chest x-ray did not show any evidence of failure, or pneumonia. There are chronic pulmonary fibrotic changes at the lung bases #2. Burning chest discomfort, and the patient's cardiac enzymes and troponins have been negative 2, there are no acute ST changes seen on the EKG, the patient has recently underwent heart catheterization during his last hospitalization in November which showed patent coronary stents #3. Subacute pancreatitis, and the patient's lipase has improved from last hospitalization. Ultrasound of the abdomen was negative for any evidence of common bile duct obstruction, there was hepatomegaly with suspected fatty infiltration of the liver #4. GERD/reflux #5. Obesity #6. History of coronary artery disease with previous stenting #7. History of advanced COPD with an underlying FEV1 of 20% of predicted #8. Upstroke to of sleep apnea with an AHI of 17, and patient is on CPAP therapy with a pressure of 13 cm of water. Patient compliant with his CPAP therapy #9. History of chronic atrial fibrillation, currently in sinus rhythm #10. History of mixed hyperlipidemia #11. Hypertension #12. 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 Abdominal aortic aneurysm #14. History of nicotine dependence, in remission, and the patient quit 10 years ago Plan: Patient is improving, no worsening dyspnea, with a burning chest sensation has resolved. No acute events overnight, vitals signs are stable. Patient has been treated with IV steroids, and nebulized bronchodilators. He is stable for discharge home from pulmonary standpoint. Follow-up with Dr. Berumen in the office in 7-10 days I performed a history & physical examination of the patient and discussed their management with my nurse practitioner, Lety Chaparro. I reviewed the nurse practitioner's note and agree with the documented findings and plan of care. Lung sounds are positive for diminished lung sounds, prolongation of the expiratory phase. The findings and the impression was discussed with the patient. I attest to the documentation by the nurse practitioner. Time with Patient: Less than 30
--- NOTE | 2017-12-26 11:08 | CDI ---
Last Revision, July 2017 Documentation Clarification Form Date: 12/26/2017 11:02:00 AM From: Chica [email or web address], CCDS Admit Date: 12/25/2017 2:58:00 PM Patient Name: Laron Junior V Visit Number: [id number] Discharge Date: ATTENTION: The Clinical Documentation Specialists (CDI) and [facility] Coding Staff appreciate your assistance in clarifying documentation. Please respond to the clarification below the line at the bottom and electronically sign. The CDI & [facility] Coding staff will review the response and follow-up if needed. Please note: Queries are made part of the Legal Health Record. If you have any questions, please contact the author of this message via ITS. Dr. Aneta Hernandez: 67 yo male, admitted with burning in chest & SOB, leg swelling. Diagnosed with acute respiratory failure secondary to COPD exacerbation. History/Risk Factors: COPD on INH, CPAP; CAD w/stents, Hypertension, Hyperlipidemia, Paroxysmal & Chronic Atrial Fibrillation. Former smoker. Clinical Indicators: Vital signs: RR 24 - 32 (labored, nasal flaring, retracting, pursed lips, cough , deep breathing, tachypnea); BP 160/106, PO 96 4Lnc-6Lnc Treatment: Nitro sl x3, Albuterol Neb INH, IV Pepcid, IV Solumedrol, Symbicort added, O2 up to 6Lnc. In your professional opinion, can you please clarify if these findings signify one of the following conditions? Acuity: o Acute o Chronic o Acute on Chronic Specificity: o Respiratory Failure, further specify (if known): o With hypercapnia? o With hypoxia? o Other, please specify o Unable to determine Please continue to document in your progress notes and discharge summary in order to capture severity of illness and risk of mortality. Include clinical findings that support your diagnosis. MTDD
[2017-12-26 12:02] LABS: Glucose,Whole Blood 167 mg/dL (75-99)
[2017-12-26] MEDS ORDERED: Potassium Replacement Protocol 1 EACH MISC MISCELLANE PRN (13:53)
[2017-12-26] MEDS ORDERED: POTASSIUM CHLORIDE ER 20 MEQ TAB.ER PO SCH (14:00)
--- NOTE | 2017-12-26 14:36 | P.CRDCN ---
History of Present Illness Consult date: 12/26/17 History of present illness: Mr. Junior is a pleasant 67-year-old male past medical history significant for coronary artery disease, diabetes mellitus, dyslipidemia, paroxysmal atrial fibrillation, obstructive sleep apnea and COPD. Most recent catheterization 12/10/2017 reveals patent stents of circumflex artery with mild plaque of proximal LAD and patent stend of proximal RCA. There is mild non- obstrictive disease of mid and distal RCA. Echocardiogram performed at that time reveals preserved left ventricular systolic function with ejection fraction 50-55% with basal inferior as well as basal inferoseptal wall motion hypokinesia. His primary bulwark carpenter is Dr. Moss. We have been asked to see him in consultation for chest pain. He states Saturday night while sitting down watching a baseball game he developed a burning sensation of the thoracic region on both sides from his shoulders down to his waist anteriorly and posteriorly. Initially the pain was around 9/10 with mild shortness of breath and cough. This persisted at this intensity for approximately 2 hours and seemed to decrease in intensity with no specific alleviating factor. The pain is still there mildly but tolerable and seems worse with deep inspiration. He has been started on antibiotics, IV steroids and breathing treatments. EKG reveals atrial fibrillation with controlled ventricular response. Chest xray indicates pulmonary fibrotic changes with subsegmental atelectasis at the lung bases. No signs of overt heart failure. Abdominal x-ray is negative for an acute abdomen. Laboratory data reviewed, cardiac enzymes negative 3 , proBNP 99, potassium 5.1 , sodium 141, WBC 11.7, hemoglobin 12.2, platelets 127. Current cardiac medications include metoprolol 12.5 mg twice a day, Plavix 75 mg daily, atorvastatin 80 mg daily and aspirin 81 mg daily. Review of Systems At the time of my exam: CONSTITUTIONAL: Denies fever. Denies chills. EYES: Denies blurred vision. Denies vision changes. Denies eye pain. EARS, NOSE, MOUTH & THROAT: Denies headache. Denies sore throat. Denies ear pain. CARDIOVASCULAR: Complains of pleuritic chest pain. Complains of mild but improving shortness of breath. Denies orthopnea. Denies PND. Denies palpitations. RESPIRATORY: Denies cough. GASTROINTESTINAL: Denies abdominal pain. Denies diarrhea. Denies constipation. Denies nausea. Denies vomiting. MUSCULOSKELETAL: Denies myalgias. INTEGUMENTARY: Denies pruitis. Denies rash. NEUROLOGIC: Denies numbness. Denies tingling. Denies weakness. PSYCHIATRIC: Denies anxiety. Denies depression. ENDOCRINE: Denies fatigue. Denies weight change. Denies polydipsia. Denies polyurina. GENITOURINARY: Denies burning, hematuria or urgency with micturation. HEMATOLOGIC: Denies history of anemia. Denies bleeding. Past Medical History Past Medical History: Atrial Fibrillation, Coronary Artery Disease (CAD), COPD, Diabetes Mellitus, GERD/Reflux, Hyperlipidemia, Hypertension, Myocardial Infarction ([place]), Osteoarthritis (OA), Sleep Apnea/CPAP/BIPAP Additional Past Medical History / Comment(s): COPD baseline FEV1 of 28%, obstructive sleep apnea, chronic atrial fibrillation, coronary artery disease, hyperlipidemia, obesity with BMI of 36.8, Thoracic aortic aneurysm 4.1 cm being monitored by Dr. Bennett, history of right lower extremities phlebitis, history of right wrist fracture, Last Myocardial Infarction Date:: 08/17/16 History of Any Multi-Drug Resistant Organisms: MRSA Date of last positivie culture/infection: 2007 MDRO Source:: LEFT ARM Past Surgical History: Appendectomy, Heart Catheterization With Stent Additional Past Surgical History / Comment(s): Fracture left wrist surgery, right leg vein stripping, tonsillectomy Past Anesthesia/Blood Transfusion Reactions: No Reported Reaction Date of Last Stent Placement:: 09/02/16 Past Psychological History: No Psychological Hx Reported Smoking Status: Former smoker Past Alcohol Use History: None Reported, Rare Past Drug Use History: None Reported - Past Family History Father Family Medical History: No Reported History Additional Family Medical History / Comment(s): in his 80's HAD HEART ISSUES Mother Family Medical History: No Reported History, Dementia Additional Family Medical History / Comment(s): Mother in her 80's Sister(s) Family Medical History: CVA/TIA Daughter(s) Family Medical History: No Reported History Son(s) Family Medical History: No Reported History Medications and Allergies Home Medications Medication Instructions Recorded Confirmed Type Atorvastatin [Lipitor] 80 mg PO HS #30 tab 08/18/16 12/24/17 Rx Clopidogrel [Plavix] 75 mg PO DAILY 30 Days tab 08/18/16 12/24/17 Rx Albuterol Sulfate [Proair Hfa] 1 - 2 puff INHALATION RT-Q6H PRN 11/07/17 History Budesonide-Formot 160-4.5 Mcg 2 puff INHALATION RT-BID #1 inh 11/11/17 12/24/17 Rx [Symbicort 160-4.5 Mcg Inhaler] Albuterol Nebulized [Ventolin 2.5 mg INHALATION RT-QID PRN 12/08/17 12/24/17 History Nebulized] Aspirin 81 mg PO DAILY chew 12/11/17 12/24/17 Rx Metoprolol Tartrate [Lopressor] 12.5 mg PO BID #60 tab 12/11/17 12/24/17 Rx Prasterone (Dhea)/Calcium Carb 1 each PO DAILY #30 tablet 12/11/17 12/24/17 Rx [Dhea 50 mg Tablet] metFORMIN HCL [Glucophage] 850 mg PO W/BRKFST #30 tab 12/11/17 12/24/17 Rx glipiZIDE [Glucotrol] 10 mg PO AC-BID 12/24/17 12/24/17 History guaiFENesin [Mucinex] 1,200 mg PO Q12HR tablet.er 12/26/17 Rx predniSONE 0 mg PO DIRECTED #30 tab 12/26/17 Rx Allergies Allergy/AdvReac Type Severity Reaction Status Date / Time Penicillins Allergy Anaphylaxis Verified 12/25/17 15:22 Physical Exam Vitals: Vital Signs Temp Pulse Pulse Resp BP BP Pulse Ox 12/26/17 10:52 86 12/26/17 10:43 80 12/26/17 10:00 95 12/26/17 07:27 76 12/26/17 07:11 70 97 12/26/17 05:24 97.5 F L 64 18 97/56 95 12/25/17 23:00 98.1 F 82 18 99/57 97 12/25/17 19:41 88 20 12/25/17 19:28 85 20 12/25/17 18:33 111/58 111/58 12/25/17 15:27 94 18 12/25/17 15:17 91 20 98 12/25/17 14:10 97.8 F 90 18 106/64 97 Intake and Output 12/25/17 12/26/17 12/26/17 22:59 06:59 14:59 Other: Voiding Method Toilet # Voids 1 Weight 128.67 kg Blood pressure 97/56 heart rate 64 afebrile maintaining oxygen saturation on room air GENERAL: This is a 67-year-old occasion male in no apparent distress at the time of my examination. Obese. HEENT: Head is atraumatic, normocephalic. Pupils are equal, round. Sclerae anicteric. Conjunctivae are clear. Mucous membranes of the mouth are moist. Neck is supple. There is no jugular venous distention. No carotid bruit is heard. LUNGS: Clear to auscultation no wheezes, rales or rhonchi. No chest wall tenderness is noted on palpation or with deep breathing. Diminished bilaterally. HEART: Regular rate and rhythm without murmurs, rubs or gallops. S1 and S2 heard. ABDOMEN: Soft, nontender. Bowel sounds are heard. No organomegaly noted. EXTREMITIES: Trace right lower extremity edema, nonpitting. No edema to the left lower extremity. No calf tenderness noted. VASCULAR: Radial and dorsalis pedis pulses palpated, no evidence of clubbing. NEUROLOGIC: Patient is awake, alert and oriented x3. Results 12/26/17 08:44 12/26/17 08:44 Cardiac Enzymes 12/26/17 Range/Units 08:44 AST 19 (17-59) U/L Lipids 12/26/17 Range/Units 08:44 Triglycerides 80 (<150) mg/dL Cholesterol 119 (<200) mg/dL HDL Cholesterol 43 (40-60) mg/dL CBC 12/26/17 Range/Units 08:44 WBC 11.7 H (3.8-10.6) k/uL RBC 3.71 L (4.30-5.90) m/uL Hgb 12.2 L (13.0-17.5) gm/dL Hct 35.6 L (39.0-53.0) % Plt Count 127 L (150-450) k/uL Comprehensive Metabolic Panel 12/26/17 Range/Units 08:44 Sodium 141 (137-145) mmol/L Potassium 5.1 (3.5-5.1) mmol/L Chloride 104 (98-107) mmol/L Carbon Dioxide 26 (22-30) mmol/L BUN 17 (9-20) mg/dL Creatinine 0.76 (0.66-1.25) mg/dL Glucose 236 H (74-99) mg/dL Calcium 8.9 (8.4-10.2) mg/dL AST 19 (17-59) U/L ALT 37 (21-72) U/L Alkaline Phosphatase 65 (38-126) U/L Total Protein 5.1 L (6.3-8.2) g/dL Albumin 3.1 L (3.5-5.0) g/dL Current Medications Generic Name Dose Route Start Last Admin Trade Name Freq PRN Reason Stop Dose Admin Albuterol/Ipratropium 3 ml 12/25/17 08:00 12/26/17 10:42 Duoneb 0.5 Mg-3 Mg/3 Ml Soln INHALATION 3 ml RT-QID JOE Administration Albuterol/Ipratropium 3 ml 12/25/17 01:15 Duoneb 0.5 Mg-3 Mg/3 Ml Soln INHALATION RT-Q4H PRN Shortness Of Breath Or Wheezing Aspirin 81 mg 12/26/17 09:00 12/26/17 08:17 Aspirin PO 81 mg DAILY JOE Administration Atorvastatin Calcium 80 mg 12/25/17 21:00 12/25/17 20:57 Lipitor PO 80 mg HS JOE Administration Budesonide/Formoterol Fumarate 2 puff 12/25/17 20:00 12/26/17 07:08 Symbicort 160-4.5 Mcg Inhaler INHALATION 2 puff RT-BID JOE Administration Clopidogrel Bisulfate 75 mg 12/26/17 09:00 12/26/17 08:17 Plavix PO 75 mg DAILY JOE Administration Enoxaparin Sodium 40 mg 12/26/17 09:00 12/26/17 08:16 Lovenox SQ 40 mg DAILY JOE Administration Glipizide 10 mg 12/25/17 13:00 12/26/17 08:17 Glucotrol PO 10 mg AC-BID JOE Administration Guaifenesin 1,200 mg 12/25/17 15:15 12/26/17 08:17 Mucinex PO 1,200 mg Q12HR JOE Administration Insulin Aspart 0 unit 12/25/17 12:30 12/26/17 12:02 Novolog SQ 2 unit ACHS JOE Administration Protocol Metformin HCl 850 mg 12/26/17 07:30 12/26/17 08:17 Glucophage PO 850 mg W/BRKFST JOE Administration Methylprednisolone Sodium Succinate 60 mg 12/25/17 06:00 12/26/17 11:53 Solu-Medrol IV 60 mg Q6HR JOE Administration Metoprolol Tartrate 12.5 mg 12/25/17 21:00 12/26/17 08:17 Lopressor PO 12.5 mg BID JOE Administration Miscellaneous Information 1 each 12/26/17 13:53 Potassium Per Protocol MISCELLANE DAILY PRN Per Protocol Protocol Nitroglycerin 1 inch 12/25/17 06:00 12/26/17 11:50 Nitro-Bid Oint TOPICAL Not Given Q6HR [facility] Nitroglycerin 0.4 mg 12/25/17 01:17 Nitrostat SUBLINGUAL Q5M PRN Chest Pain Potassium Chloride 20 meq 12/26/17 14:00 K-Dur 20 PO 12/26/17 15:01 Q1HR JOE Intake and Output 12/25/17 12/26/17 12/26/17 22:59 06:59 14:59 Other: Voiding Method Toilet # Voids 1 Weight 128.67 kg 12/26/17 08:44 12/26/17 08:44 Assessment and Plan Assessment: ASSESSMENT 1. Chest pain, atypical. An acute coronary event has been ruled out with no EKG evidence of ischemia and negative cardiac enzymes. Patient had a recent cardiac catheterization December 10 which revealed no progression of coronary artery disease and patent stent of the circumflex and RCA. 2. History of known coronary artery disease with patent stents in the circumflex and RCA. 3. COPD with pulmonary fibrotic changes on x-ray 4. Paroxysmal atrial fibrillation not on emergency technician anticoagulation since last admission. PLAN An acute coronary event has been ruled out. Recommend continue with current medical therapy. Follow up with Dr. Moss upon discharge. Nurse Practitioner note has been reviewed, I agree with a documented findings and plan of care. Patient was seen and examined.
--- NOTE | 2017-12-26 14:45 | P.DS ---
Providers Date of admission: 12/25/17 14:58 Expected date of discharge: 12/26/17 Attending physician: Aneta Hernandez Consults: 12/25/17 01:15 Consult Physician Routine Consulting Provider: Nicolasa Berumen Consult Reason/Comments: dyspnea Do you want consulting provider notified?: Yes Consult Physician Routine Consulting Provider: Niraj Mcallister Consult Reason/Comments: cp Do you want consulting provider notified?: Yes Primary care physician: Laron Holland [facility] Course: This is a 67-year-old male patient of Dr. Holland with a previous medical history significant for paroxysmal atrial fibrillation, hypertension and hypertensive cardio vascular disease, hyperlipidemia, history of obesity with obstructive sleep apnea, CAD with ST elevation [place] post-PCI of the RCA back in August 2016 patient was recently hospitalized at [facility] back on 12/08/2017 after he was admitted to the hospital for appears to be chest pain and he ended up going for heart catheter physician that did not show any evidence of acute of normalities, patient was brought into the ER yesterday after he was sitting down watching the Tigers came around 10:00 in the evening when he developed to have a significant burning sensation around his chest and back and the patient was placed on a CPAP at home he did not feel any better, his ended up bringing him to the ER at [facility] had an EKG did not show any evidence of acute of normalities, however because of his presentation was kept in the hospital for acute exacerbation of COPD. Pulmonary and cardiology consultation were obtained. 12/26: Patient has been seen by Dr. Vo and cleared for discharge home. Patient is anxious to be leaving. Patient will be discharged home today in stable condition. He does state that his chest pain is resolved. Discharge diagnoses: 1. Acute on chronic hypoxic respiratory failure due to COPD exacerbation with pleurisy. 2. History of CAD post-PCI of the RCA 3. Diabetes mellitus type 2. 4. Hyperlipidemia. 5. Osteoarthritis. 6. GERD. 7. Obstructive sleep apnea. Discharge plan: Home Impression and plan of care have been directed as dictated by the signing physician. Joy Baxter nurse practitioner acting as scribe for signing physician. Patient Condition at Discharge: Good Plan - Discharge Summary Discharge Rx Participant: No New Discharge Prescriptions: New guaiFENesin [Mucinex] 1,200 mg PO Q12HR tablet.er predniSONE 0 mg PO DIRECTED #30 tab Continue Atorvastatin [Lipitor] 80 mg PO HS #30 tab Clopidogrel [Plavix] 75 mg PO DAILY 30 Days tab Albuterol Sulfate [Proair Hfa] 1 - 2 puff INHALATION RT-Q6H PRN PRN Reason: Shortness Of Breath Budesonide-Formot 160-4.5 Mcg [Symbicort 160-4.5 Mcg Inhaler] 2 puff INHALATION RT-BID #1 inh Albuterol Nebulized [Ventolin Nebulized] 2.5 mg INHALATION RT-QID PRN PRN Reason: Shortness Of Breath Aspirin 81 mg PO DAILY chew metFORMIN HCL [Glucophage] 850 mg PO W/BRKFST #30 tab Metoprolol Tartrate [Lopressor] 12.5 mg PO BID #60 tab Prasterone (Dhea)/Calcium Carb [Dhea 50 mg Tablet] 1 each PO DAILY #30 tablet glipiZIDE [Glucotrol] 10 mg PO AC-BID Discharge Medication List Atorvastatin [Lipitor] 80 mg PO HS #30 tab 08/18/16 [Rx] Clopidogrel [Plavix] 75 mg PO DAILY 30 Days tab 08/18/16 [Rx] Albuterol Sulfate [Proair Hfa] 1 - 2 puff INHALATION RT-Q6H PRN 11/07/17 [ History] Budesonide-Formot 160-4.5 Mcg [Symbicort 160-4.5 Mcg Inhaler] 2 puff INHALATION RT-BID #1 inh 11/11/17 [Rx] Albuterol Nebulized [Ventolin Nebulized] 2.5 mg INHALATION RT-QID PRN 12/08/17 [ History] Aspirin 81 mg PO DAILY chew 12/11/17 [Rx] Metoprolol Tartrate [Lopressor] 12.5 mg PO BID #60 tab 12/11/17 [Rx] Prasterone (Dhea)/Calcium Carb [Dhea 50 mg Tablet] 1 each PO DAILY #30 tablet [Rx] metFORMIN HCL [Glucophage] 850 mg PO W/BRKFST #30 tab 12/11/17 [Rx] glipiZIDE [Glucotrol] 10 mg PO AC-BID 12/24/17 [History] guaiFENesin [Mucinex] 1,200 mg PO Q12HR tablet.er 12/26/17 [Rx] predniSONE 0 mg PO DIRECTED #30 tab 12/26/17 [Rx] Follow up Appointment(s)/Referral(s): Laron Holland DO [Primary Care Provider] - 1 Week (Office will call you with appointment time. ) Nicolasa Berumen MD [STAFF PHYSICIAN] - 01/16/18 1:00 pm Patient Instructions/Handouts: COPD (Chronic Obstructive Pulmonary Disease) (DC ) Activity/Diet/Wound Care/Special Instructions: Cardiac, diabetic diet. Activity as tolerated. Discharge Disposition: HOME SELF-CARE
== END 2017-12-26 14:12 | disposition home or self-care (01) | DRG 190 ==
LOC: EC 23:13 → 6SEL 12-25 01:15 → 5MS5E 12-25 11:09 → 4MS4W 12-25 12:19 → OBSVTOIN 12-25 14:58
PROVIDERS: ADMIT Internal Medicine; ATTEND Internal Medicine
DX: J44.1 Chronic obstructive pulmonary disease with (acute) exacerbation (principal); J96.21 Acute and chronic respiratory failure with hypoxia; K85.90 Acute pancreatitis without necrosis or infection, unspecified; J98.11 Atelectasis; E11.9 Type 2 diabetes mellitus without complications; E66.9 Obesity, unspecified; E78.2 Mixed hyperlipidemia; G47.33 Obstructive sleep apnea (adult) (pediatric); I10 Essential (primary) hypertension; I25.10 Atherosclerotic heart disease of native coronary artery without angina pectoris; I25.2 Old myocardial infarction; I48.2 Chronic atrial fibrillation; I71.4 Abdominal aortic aneurysm, without rupture; K21.9 Gastro-esophageal reflux disease without esophagitis; M19.90 Unspecified osteoarthritis, unspecified site; F17.201 Nicotine dependence, unspecified, in remission; R16.0 Hepatomegaly, not elsewhere classified; J84.10 Pulmonary fibrosis, unspecified; K76.0 Fatty (change of) liver, not elsewhere classified; J98.6 Disorders of diaphragm; Z68.36 Body mass index [BMI] 36.0-36.9, adult; Z95.5 Presence of coronary angioplasty implant and graft; Z86.72 Personal history of thrombophlebitis; Z79.899 Other long term (current) drug therapy; Z79.84 Long term (current) use of oral hypoglycemic drugs; Z79.82 Long term (current) use of aspirin; Z79.51 Long term (current) use of inhaled steroids; Z79.02 Long term (current) use of antithrombotics/antiplatelets; Z86.14 Personal history of Methicillin resistant Staphylococcus aureus infection; Z82.3 Family history of stroke; Z81.8 Family history of other mental and behavioral disorders
CPT/HCPCS: 36415; 71046; 74018; 76700; 80053; 80061; 82150; 82550; 82553; 83690; 83735; 83880; 84484; 85025; 85610; 85730; 93005; 94640; 94760; 96374; 96375; 96376; 99285

== ENCOUNTER 2018-02-07 16:37 | Emergency (ER) | payer MEDICARE ==
[2018-02-07] MEDS ORDERED: LORazepam 2 MG/ML INJ IV STA (16:59)
[2018-02-07] MEDS ORDERED: MORPHINE SULFATE 2 MG/ML SYRINGE IV STA (16:59)
[2018-02-07] MEDS ORDERED: ONDANSETRON 4 MG/2 ML VIAL IVP STA (16:59)
[2018-02-07 17:12] LABS: Basophils % (A) 0 %; Eosinophils # (A) 0.2 k/uL (0-0.7); Eosinophils % (A) 2 %; HCT 43.8 % (39.0-53.0); HGB 14.8 gm/dL (13.0-17.5); Lymphocytes # (A) 2.2 k/uL (1.0-4.8); Lymphocytes % (A) 25 %; MCH 32.4 pg (25.0-35.0); MCHC 33.7 g/dL (31.0-37.0); MCV 96.2 fL (80.0-100.0); Mean Platelet Volume 7.5; Monocytes # (A) 0.6 k/uL (0-1.0); Monocytes % (A) 6 %; Neutrophils # (A) 5.7 k/uL (1.3-7.7); Neutrophils % (A) 64 %; Platelet Count 140 k/uL (150-450); RBC 4.56 m/uL (4.30-5.90); RDW 14.6 % (11.5-15.5); WBC 8.9 k/uL (3.8-10.6)
[2018-02-07 17:16] LABS: ALT 46 U/L (21-72); AST 25 U/L (17-59); Albumin 3.7 g/dL (3.5-5.0); Alkaline Phosphatase 74 U/L (38-126); Anion Gap 9 mmol/L; Blood Urea Nitrogen 13 mg/dL (9-20); Calcium 9.2 mg/dL (8.4-10.2); Carbon Dioxide 28 mmol/L (22-30); Chloride 105 mmol/L (98-107); Glucose 120 mg/dL (74-99); INR 1.1 (<1.2); Lipase 299 U/L (23-300); Magnesium 1.7 mg/dL (1.6-2.3); Partial Thromboplastin Time 22.9 sec (22.0-30.0); Potassium 4.5 mmol/L (3.5-5.1); Prothrombin Time 10.8 sec (9.0-12.0); Sodium 142 mmol/L (137-145); Total Bilirubin 1.9 mg/dL (0.2-1.3); Total Protein 5.7 g/dL (6.3-8.2)
--- NOTE | 2018-02-07 17:20 | ED ---
General Adult HPI - General Chief complaint: Chest Pain Stated complaint: chest pain Time Seen by Provider: 02/07/18 16:44 Source: patient, RN notes reviewed, old records reviewed Mode of arrival: wheelchair Limitations: physical limitation - History of Present Illness Initial comments: This is a 68-year-old male the ER for evaluation positive shortness breath positive chest pain. Significant chest pain started hour prior to arrival no help with nitro. Patient's history of heart disease history of stents as he was shortness of breath. Mild cough no congestion no fevers. No recent travel history. Patient has history of chronic angina chronic pain. Usually is improved with nitro had no improvement today - Related Data Home Medications Medication Instructions Recorded Confirmed Albuterol Sulfate [Proair Hfa] 1 - 2 puff INHALATION RT-Q6H PRN 11/07/17 Albuterol Nebulized [Ventolin 2.5 mg INHALATION RT-QID PRN 12/08/17 02/07/18 Nebulized] guaiFENesin [Mucinex] 1,200 mg PO Q12HR PRN 02/07/18 02/07/18 Previous Rx's Medication Instructions Recorded Atorvastatin [Lipitor] 80 mg PO HS #30 tab 08/18/16 Clopidogrel [Plavix] 75 mg PO DAILY 30 Days tab 08/18/16 Budesonide-Formot 160-4.5 Mcg 2 puff INHALATION RT-BID #1 inh 11/11/17 [Symbicort 160-4.5 Mcg Inhaler] Aspirin 81 mg PO DAILY chew 12/11/17 Allergies Allergy/AdvReac Type Severity Reaction Status Date / Time Penicillins Allergy Anaphylaxis Verified 02/07/18 17:17 Review of Systems ROS Statement: Those systems with pertinent positive or pertinent negative responses have been documented in the HPI. ROS Other: All systems not noted in ROS Statement are negative. Past Medical History Past Medical History: Atrial Fibrillation, Coronary Artery Disease (CAD), COPD, Diabetes Mellitus, GERD/Reflux, Hyperlipidemia, Hypertension, Myocardial Infarction (NE), Osteoarthritis (OA), Sleep Apnea/CPAP/BIPAP Additional Past Medical History / Comment(s): COPD baseline FEV1 of 28%, obstructive sleep apnea, chronic atrial fibrillation, coronary artery disease, hyperlipidemia, obesity with BMI of 36.8, Thoracic aortic aneurysm 4.1 cm being monitored by Dr. Bennett, history of right lower extremities phlebitis, history of right wrist fracture, Last Myocardial Infarction Date:: 08/17/16 History of Any Multi-Drug Resistant Organisms: MRSA Date of last positivie culture/infection: 2007 MDRO Source:: LEFT ARM Past Surgical History: Appendectomy, Heart Catheterization With Stent Additional Past Surgical History / Comment(s): Fracture left wrist surgery, right leg vein stripping, tonsillectomy Past Anesthesia/Blood Transfusion Reactions: No Reported Reaction Date of Last Stent Placement:: 09/02/16 Past Psychological History: No Psychological Hx Reported Smoking Status: Former smoker Past Alcohol Use History: None Reported, Rare Past Drug Use History: None Reported - Past Family History Father Family Medical History: No Reported History Additional Family Medical History / Comment(s): in his 80's HAD HEART ISSUES Mother Family Medical History: No Reported History, Dementia Additional Family Medical History / Comment(s): Mother in her 80's Sister(s) Family Medical History: CVA/TIA Daughter(s) Family Medical History: No Reported History Son(s) Family Medical History: No Reported History General Exam Limitations: physical limitation General appearance: alert, in no apparent distress Head exam: Present: atraumatic, normocephalic, normal inspection Eye exam: Present: normal appearance, PERRL, EOMI. Absent: scleral icterus, conjunctival injection, periorbital swelling ENT exam: Present: normal exam, mucous membranes moist Neck exam: Present: normal inspection. Absent: tenderness, meningismus, lymphadenopathy Respiratory exam: Present: normal lung sounds bilaterally. Absent: respiratory distress, wheezes, rales, rhonchi, stridor Cardiovascular Exam: Present: regular rate, normal rhythm, normal heart sounds. Absent: systolic murmur, diastolic murmur, rubs, gallop, clicks GI/Abdominal exam: Present: soft, normal bowel sounds. Absent: distended, tenderness, guarding, rebound, rigid Extremities exam: Present: normal inspection, full ROM, normal capillary refill. Absent: tenderness, pedal edema, joint swelling, calf tenderness Back exam: Present: normal inspection Neurological exam: Present: alert, oriented X3, CN II-XII intact Psychiatric exam: Present: normal affect, normal mood Skin exam: Present: warm, dry, intact, normal color. Absent: rash Course Vital Signs 02/07/18 16:42 Temperature 97.1 F L Pulse Rate 62 Respiratory 18 Rate Blood Pressure 164/75 O2 Sat by Pulse 97 Oximetry - Reevaluation(s) Reevaluation #1: 02/07/18 18:05 Medical record is reviewed Reevaluation #2: 02/07/18 18:05 Patient still has chest pain EKG Findings - EKG Comments: EKG Findings:: EKG shows sinus rhythm rate of 60, VA 126, QRS 94, QTC 425 Medical Decision Making - Medical Decision Making 68 male the ER for evasive chest pain, significant chest pain positive shortness of breath. History of COPD, patient has history of angina and stents. Patient be admitted for cardiac observation, telemetry she'll troponins - Lab Data Result diagrams: 02/07/18 16:55 02/07/18 16:55 Lab Results 02/07/18 02/07/18 02/07/18 Range/Units 16:55 16:55 16:55 WBC 8.9 (3.8-10.6) k/uL RBC 4.56 (4.30-5.90) m/uL Hgb 14.8 (13.0-17.5) gm/dL Hct 43.8 (39.0-53.0) % MCV 96.2 (80.0-100.0) fL MCH 32.4 (25.0-35.0) pg MCHC 33.7 (31.0-37.0) g/dL RDW 14.6 (11.5-15.5) % Plt Count 140 L (150-450) k/uL Neutrophils % 64 % Lymphocytes % 25 % Monocytes % 6 % Eosinophils % 2 % Basophils % 0 % Neutrophils # 5.7 (1.3-7.7) k/uL Lymphocytes # 2.2 (1.0-4.8) k/uL Monocytes # 0.6 (0-1.0) k/uL Eosinophils # 0.2 (0-0.7) k/uL Basophils # 0.0 (0-0.2) k/uL PT (9.0-12.0) sec INR (<1.2) APTT (22.0-30.0) sec Sodium 142 (137-145) mmol/L Potassium 4.5 (3.5-5.1) mmol/L Chloride 105 (98-107) mmol/L Carbon Dioxide 28 (22-30) mmol/L Anion Gap 9 mmol/L BUN 13 (9-20) mg/dL Creatinine 0.85 (0.66-1.25) mg/dL Est GFR (CKD-EPI)AfAm >90 (>60 ml/min/1.73 sqM) Est GFR (CKD-EPI)NonAf >90 (>60 ml/min/1.73 sqM) Glucose 120 H (74-99) mg/dL Calcium 9.2 (8.4-10.2) mg/dL Magnesium 1.7 (1.6-2.3) mg/dL Total Bilirubin 1.9 H (0.2-1.3) mg/dL AST 25 (17-59) U/L ALT 46 (21-72) U/L Alkaline Phosphatase 74 (38-126) U/L NT-Pro-B Natriuret Pep 208 pg/mL Total Protein 5.7 L (6.3-8.2) g/dL Albumin 3.7 (3.5-5.0) g/dL Lipase 299 (23-300) U/L 02/07/18 Range/Units 16:55 WBC (3.8-10.6) k/uL RBC (4.30-5.90) m/uL Hgb (13.0-17.5) gm/dL Hct (39.0-53.0) % MCV (80.0-100.0) fL MCH (25.0-35.0) pg MCHC (31.0-37.0) g/dL RDW (11.5-15.5) % Plt Count (150-450) k/uL Neutrophils % % Lymphocytes % % Monocytes % % Eosinophils % % Basophils % % Neutrophils # (1.3-7.7) k/uL Lymphocytes # (1.0-4.8) k/uL Monocytes # (0-1.0) k/uL Eosinophils # (0-0.7) k/uL Basophils # (0-0.2) k/uL PT 10.8 (9.0-12.0) sec INR 1.1 (<1.2) APTT 22.9 (22.0-30.0) sec Sodium (137-145) mmol/L Potassium (3.5-5.1) mmol/L Chloride (98-107) mmol/L Carbon Dioxide (22-30) mmol/L Anion Gap mmol/L BUN (9-20) mg/dL Creatinine (0.66-1.25) mg/dL Est GFR (CKD-EPI)AfAm (>60 ml/min/1.73 sqM) Est GFR (CKD-EPI)NonAf (>60 ml/min/1.73 sqM) Glucose (74-99) mg/dL Calcium (8.4-10.2) mg/dL Magnesium (1.6-2.3) mg/dL Total Bilirubin (0.2-1.3) mg/dL AST (17-59) U/L ALT (21-72) U/L Alkaline Phosphatase (38-126) U/L NT-Pro-B Natriuret Pep pg/mL Total Protein (6.3-8.2) g/dL Albumin (3.5-5.0) g/dL Lipase (23-300) U/L - Radiology Data Radiology results: report reviewed (Chest x-rays negative for acute disease), image reviewed Critical Care Time Critical Care Time: Yes Total Critical Care Time: 31 Disposition Clinical Impression: Chest pain, S/P right coronary artery (RCA) stent placement Disposition: ADMITTED IP TO THIS HOSP Condition: Undetermined Is patient prescribed a controlled substance at d/c from ED?: No Referrals: Laron Holland DO [Primary Care Provider] - 1-2 days
[2018-02-07 17:30] LABS: Creatine Kinase 60 U/L (55-170)
[2018-02-07 17:44] LABS: Troponin I <0.012 ng/mL (0.000-0.034)
--- NOTE | 2018-02-07 17:56 | XR ---
EXAMINATION TYPE: XR chest 2V DATE OF EXAM: 02/07/2018 COMPARISON: 12/25/2017 HISTORY: Chest pain and short of breath TECHNIQUE: Frontal and lateral views of the chest are obtained. FINDINGS: There is no heart failure nor confluent pneumonic infiltrate. There is some pleural thicke kendy in the left major fissure. Bony thorax is intact. There are chest leads. Heart size is normal. IMPRESSION: Left-sided pleural thickening similar to old exam. This is consistent with scarring. Nor mal heart. No acute lung disease.
[2018-02-07] MEDS ORDERED: MORPHINE SULFATE 2 MG/ML SYRINGE IV PRN (18:03)
[2018-02-07] MEDS ORDERED: NITROGLYCERIN SL TABS 0.4 MG TAB SUBLINGUAL PRN (18:03)
[2018-02-07] MEDS ORDERED: HEPARIN SODIUM,PORCINE 5,000 UNIT/ML 1 ML VIAL IV PRN (18:03)
[2018-02-07] MEDS ORDERED: ASPIRIN 81 MG PO STA (18:03)
[2018-02-07] MEDS ORDERED: HEPARIN SODIUM,PORCINE 5,000 UNIT/ML 1 ML VIAL IV ONE (18:03)
[2018-02-07] MEDS ORDERED: IPRATROPIUM-ALBUTEROL 3 ML NEB INHALATION STA (18:05)
[2018-02-07] MEDS ORDERED: HEPARIN SODIUM,PORCINE/D5W PMX 25,000 UNIT in DEXTROSE/WATER 1 500ML.BAG IV SCH (18:15)
[2018-02-07] MEDS ORDERED: SODIUM CHLORIDE 0.9% 1,000 ML IV SCH (18:15)
[2018-02-07 19:02] VITALS: RESP 18
--- NOTE | 2018-02-07 19:06 | US ---
EXAMINATION TYPE: US gallbladder DATE OF EXAM: 02/07/2018 COMPARISON: US 2018 CLINICAL HISTORY: Pain. Chest pain radiating to back, right shoulder, and abdomen after eating coconu t/ chocolate chip cookies today per patient EXAM MEASUREMENTS: Liver Length: 14.8 cm Gallbladder Wall: 0.2 cm CBD: 0.4 cm Right Kidney: 11.8 x 6.7 x 5.8 cm Pancreas: hyperechoic Liver: hyperechoic to right renal cortex suggests fatty liver Gallbladder: wnl, length is also < 10.0cm, width is < 5.0cm and measured in multiple views, thus is wnl. Evidence for sonographic Smith's sign: no CBD: wnl Right Kidney: No hydronephrosis or masses seen IMPRESSION: No gallstones or dilated ducts. There is probably fatty infiltration of the liver.
[2018-02-07 19:29] VITALS: BP 116/60; PULSE 80; TEMP 98.5
[2018-02-07] MEDS ORDERED: IPRATROPIUM-ALBUTEROL 3 ML NEB INHALATION SCH (20:00)
[2018-02-08] MEDS ORDERED: ASPIRIN 325 MG TAB PO SCH (09:00)
== END 2018-02-07 19:29 ==
LOC: EC 16:37 → 3SUR 18:03 → UNDOADMOB 18:03 → 3SUR 18:58 → EC 19:29
DX: R07.9 Chest pain, unspecified (principal); R06.02 Shortness of breath; Z86.14 Personal history of Methicillin resistant Staphylococcus aureus infection; Z98.890 Other specified postprocedural states; Z88.0 Allergy status to penicillin; Z87.891 Personal history of nicotine dependence
CPT/HCPCS: 99291; 96374; 96375 ×2; 36415; 93005; 83880; 80053; 82550; 82553; 83690; 83735; 84484; 85025; 85610; 85730; 71046; 76705; J2060; J2405; J2270

== ENCOUNTER 2018-10-16 10:24 | Inpatient (IN) | payer MEDICARE ==
[2018-10-16] MEDS ORDERED: methylPREDNISolone SOD SUCCI 125 MG/2 ML VIAL IV STA (10:33)
[2018-10-16] MEDS ORDERED: ALBUTEROL NEBULIZED 2.5 MG/3 ML INHALATION STA (10:33)
--- NOTE | 2018-10-16 10:35 | ED ---
General Adult HPI - General Chief complaint: Shortness of Breath Stated complaint: GLORIA Time Seen by Provider: 10/16/18 10:25 Source: patient, RN notes reviewed Mode of arrival: EMS Limitations: no limitations - History of Present Illness Initial comments: This is a 68-year-old male who presents emergency Department with a past medical history significant for COPD. Patient states over the last few days he' s been having a hard time breathing but really got worse this morning. Patient states she's taken multiple treatments it only helps for a short period time and then he gets worse again. Patient denies any chest pain or palpitations. Patient denies any recent fever chills per patient states he has coughed with a dry cough. Patient denies any swelling to the legs or calf tenderness. Patient denies any recent injury or trauma. Patient denies headache patient denies numbness or weakness. Patient denies any lightheadedness dizziness or near syncopal episode. - Related Data Home Medications Medication Instructions Recorded Confirmed Albuterol Sulfate [Proair Hfa] 1 - 2 puff INHALATION RT-Q6H PRN 11/07/17 Albuterol Nebulized [Ventolin 2.5 mg INHALATION RT-QID PRN 12/08/17 10/16/18 Nebulized] Previous Rx's Medication Instructions Recorded Atorvastatin [Lipitor] 80 mg PO HS #30 tab 08/18/16 Clopidogrel [Plavix] 75 mg PO DAILY 30 Days tab 08/18/16 Aspirin 81 mg PO DAILY chew 12/11/17 Allergies Allergy/AdvReac Type Severity Reaction Status Date / Time Penicillins Allergy Anaphylaxis Verified 10/16/18 11:21 Review of Systems ROS Statement: Those systems with pertinent positive or pertinent negative responses have been documented in the HPI. ROS Other: All systems not noted in ROS Statement are negative. Past Medical History Past Medical History: Atrial Fibrillation, Coronary Artery Disease (CAD), COPD, Diabetes Mellitus, GERD/Reflux, Hyperlipidemia, Hypertension, Myocardial Infarction (CT), Osteoarthritis (OA), Sleep Apnea/CPAP/BIPAP Additional Past Medical History / Comment(s): COPD baseline FEV1 of 28%, obstructive sleep apnea, chronic atrial fibrillation, coronary artery disease, hyperlipidemia, obesity with BMI of 36.8, Thoracic aortic aneurysm 4.1 cm being monitored by Dr. Bennett, history of right lower extremities phlebitis, history of right wrist fracture, Last Myocardial Infarction Date:: 08/17/16 History of Any Multi-Drug Resistant Organisms: MRSA Date of last positivie culture/infection: 2007 MDRO Source:: LEFT ARM Past Surgical History: Appendectomy, Heart Catheterization With Stent Additional Past Surgical History / Comment(s): Fracture left wrist surgery, right leg vein stripping, tonsillectomy Past Anesthesia/Blood Transfusion Reactions: No Reported Reaction Date of Last Stent Placement:: 09/02/16 Past Psychological History: No Psychological Hx Reported Smoking Status: Former smoker Past Alcohol Use History: None Reported, Rare Past Drug Use History: None Reported - Past Family History Father Family Medical History: No Reported History Additional Family Medical History / Comment(s): in his 80's HAD HEART ISSUES Mother Family Medical History: No Reported History, Dementia Additional Family Medical History / Comment(s): Mother in her 80's Sister(s) Family Medical History: CVA/TIA Daughter(s) Family Medical History: No Reported History Son(s) Family Medical History: No Reported History General Exam - General Exam Comments Initial Comments: GENERAL: Patient is well-developed and well-nourished. Patient is nontoxic and well- hydrated and is in mild distress. ENT: Neck is soft and supple. No significant lymphadenopathy is noted. Oropharynx is clear. Moist mucous membranes. Neck has full range of motion without eliciting any pain. EYES: The sclera were anicteric and conjunctiva were pink and moist. Extraocular movements were intact and pupils were equal round and reactive to light. Eyelids were unremarkable. PULMONARY: Patient has expiratory wheezing diffusely CARDIOVASCULAR: There is a regular rate and rhythm without any murmurs gallops or rubs. ABDOMEN: Soft and nontender with normal bowel sounds. No palpable organomegaly was noted. There is no palpable pulsatile mass. SKIN: Skin is clear with no lesions or rashes and otherwise unremarkable. NEUROLOGIC: Patient is alert and oriented x3. Cranial nerves II through XII are grossly intact. Motor and sensory are also intact. Normal speech, volume and content. Symmetrical smile. MUSCULOSKELETAL: Normal extremities with adequate strength and full range of motion. No lower extremity swelling or edema. No calf tenderness. LYMPHATICS: No significant lymphadenopathy is noted PSYCHIATRIC: Normal psychiatric evaluation. Limitations: no limitations Course Vital Signs 10/16/18 10/16/18 10/16/18 10:25 10:50 10:55 Temperature 98.2 F Pulse Rate 53 L 79 Respiratory 24 24 Rate Blood Pressure 144/68 O2 Sat by Pulse 95 Oximetry 10/16/18 10/16/18 11:00 11:59 Temperature Pulse Rate 79 Respiratory 15 Rate Blood Pressure 144/68 O2 Sat by Pulse 97 97 Oximetry Medical Decision Making - Medical Decision Making EKG shows a sinus rhythm at 82 bpm patient has multiple PVCs. Patient has a MT interval 136 QRS is 96 Q-T intervals 408 QTC is 471. Patient's EKG shows no ST segment elevation or depression. Chest x-ray shows no acute abnormality. When patient initially wanted the patient about the option he was descending down 89%. Patient received 2 breathing treatments in the emergency department and steroids. Patient continues to wheeze diffusely but does feel slightly better. Patient is oxygenating 96% on [address] Wayne he agreed to admit the patient admitted the patient I wrote admitting orders. - Lab Data Result diagrams: 10/16/18 10:48 10/16/18 10:48 Lab Results 10/16/18 10/16/18 10/16/18 Range/Units 10:48 10:48 10:48 WBC 7.7 (3.8-10.6) k/uL RBC 4.98 (4.30-5.90) m/uL Hgb 16.3 (13.0-17.5) gm/dL Hct 49.4 (39.0-53.0) % MCV 99.2 (80.0-100.0) fL MCH 32.7 (25.0-35.0) pg MCHC 32.9 (31.0-37.0) g/dL RDW 13.9 (11.5-15.5) % Plt Count 170 (150-450) k/uL Neutrophils % 63 % Lymphocytes % 20 % Monocytes % 5 % Eosinophils % 9 % Basophils % 1 % Neutrophils # 4.9 (1.3-7.7) k/uL Lymphocytes # 1.5 (1.0-4.8) k/uL Monocytes # 0.4 (0-1.0) k/uL Eosinophils # 0.7 (0-0.7) k/uL Basophils # 0.0 (0-0.2) k/uL PT (9.0-12.0) sec INR (<1.2) APTT (22.0-30.0) sec Sodium 143 (137-145) mmol/L Potassium 4.5 (3.5-5.1) mmol/L Chloride 108 H (98-107) mmol/L Carbon Dioxide 29 (22-30) mmol/L Anion Gap 6 mmol/L BUN 16 (9-20) mg/dL Creatinine 0.80 (0.66-1.25) mg/dL Est GFR (CKD-EPI)AfAm >90 (>60 ml/min/1.73 sqM) Est GFR (CKD-EPI)NonAf >90 (>60 ml/min/1.73 sqM) Glucose 147 H (74-99) mg/dL Calcium 9.2 (8.4-10.2) mg/dL Magnesium 1.8 (1.6-2.3) mg/dL Total Bilirubin 1.7 H (0.2-1.3) mg/dL AST 21 (17-59) U/L ALT 35 (21-72) U/L Alkaline Phosphatase 69 (38-126) U/L Total Creatine Kinase 135 (55-170) U/L CK-MB (CK-2) 2.5 H (0.0-2.4) ng/mL CK-MB (CK-2) Rel Index 1.9 Troponin I <0.012 (0.000-0.034) ng/mL NT-Pro-B Natriuret Pep pg/mL Total Protein 6.1 L (6.3-8.2) g/dL Albumin 3.9 (3.5-5.0) g/dL 10/16/18 10/16/18 Range/Units 10:48 10:48 WBC (3.8-10.6) k/uL RBC (4.30-5.90) m/uL Hgb (13.0-17.5) gm/dL Hct (39.0-53.0) % MCV (80.0-100.0) fL MCH (25.0-35.0) pg MCHC (31.0-37.0) g/dL RDW (11.5-15.5) % Plt Count (150-450) k/uL Neutrophils % % Lymphocytes % % Monocytes % % Eosinophils % % Basophils % % Neutrophils # (1.3-7.7) k/uL Lymphocytes # (1.0-4.8) k/uL Monocytes # (0-1.0) k/uL Eosinophils # (0-0.7) k/uL Basophils # (0-0.2) k/uL PT 11.3 (9.0-12.0) sec INR 1.1 (<1.2) APTT 28.6 (22.0-30.0) sec Sodium (137-145) mmol/L Potassium (3.5-5.1) mmol/L Chloride (98-107) mmol/L Carbon Dioxide (22-30) mmol/L Anion Gap mmol/L BUN (9-20) mg/dL Creatinine (0.66-1.25) mg/dL Est GFR (CKD-EPI)AfAm (>60 ml/min/1.73 sqM) Est GFR (CKD-EPI)NonAf (>60 ml/min/1.73 sqM) Glucose (74-99) mg/dL Calcium (8.4-10.2) mg/dL Magnesium (1.6-2.3) mg/dL Total Bilirubin (0.2-1.3) mg/dL AST (17-59) U/L ALT (21-72) U/L Alkaline Phosphatase (38-126) U/L Total Creatine Kinase (55-170) U/L CK-MB (CK-2) (0.0-2.4) ng/mL CK-MB (CK-2) Rel Index Troponin I (0.000-0.034) ng/mL NT-Pro-B Natriuret Pep 306 pg/mL Total Protein (6.3-8.2) g/dL Albumin (3.5-5.0) g/dL Critical Care Time Critical Care Time: Yes Total Critical Care Time: 35 Disposition Clinical Impression: Acute exacerbation of chronic obstructive airways disease Disposition: ADMITTED IP TO THIS HOSP Referrals: Laron Holland DO [Primary Care Provider] - 1-2 days Time of Disposition: 12:05
[2018-10-16 11:01] LABS: Basophils % (A) 1 %; Eosinophils # (A) 0.7 k/uL (0-0.7); Eosinophils % (A) 9 %; HCT 49.4 % (39.0-53.0); HGB 16.3 gm/dL (13.0-17.5); Lymphocytes # (A) 1.5 k/uL (1.0-4.8); Lymphocytes % (A) 20 %; MCH 32.7 pg (25.0-35.0); MCHC 32.9 g/dL (31.0-37.0); MCV 99.2 fL (80.0-100.0); Monocytes # (A) 0.4 k/uL (0-1.0); Monocytes % (A) 5 %; Neutrophils # (A) 4.9 k/uL (1.3-7.7); Neutrophils % (A) 63 %; Platelet Count 170 k/uL (150-450); RBC 4.98 m/uL (4.30-5.90); RDW 13.9 % (11.5-15.5); WBC 7.7 k/uL (3.8-10.6)
[2018-10-16 11:11] LABS: ALT 35 U/L (21-72); AST 21 U/L (17-59); Albumin 3.9 g/dL (3.5-5.0); Alkaline Phosphatase 69 U/L (38-126); Anion Gap 6 mmol/L; Blood Urea Nitrogen 16 mg/dL (9-20); Calcium 9.2 mg/dL (8.4-10.2); Carbon Dioxide 29 mmol/L (22-30); Chloride 108 mmol/L (98-107); Glucose 147 mg/dL (74-99); Magnesium 1.8 mg/dL (1.6-2.3); Potassium 4.5 mmol/L (3.5-5.1); Sodium 143 mmol/L (137-145); Total Bilirubin 1.7 mg/dL (0.2-1.3); Total Protein 6.1 g/dL (6.3-8.2)
[2018-10-16 11:13] LABS: INR 1.1 (<1.2); Partial Thromboplastin Time 28.6 sec (22.0-30.0); Prothrombin Time 11.3 sec (9.0-12.0)
[2018-10-16 11:23] LABS: Creatine Kinase 135 U/L (55-170)
[2018-10-16 11:35] LABS: Creatine Kinase MB 2.5 ng/mL (0.0-2.4); Troponin I <0.012 ng/mL (0.000-0.034)
--- NOTE | 2018-10-16 11:51 | XR ---
EXAMINATION TYPE: XR chest 2V DATE OF EXAM: 10/16/2018 COMPARISON: 02/07/2019 HISTORY: Shortness of breath TECHNIQUE: Frontal and lateral views of the chest are obtained. FINDINGS: Scattered senescent parenchymal changes noted. Hyperinflation compatible with COPD. No evidence for infiltrate. No evidence for atelectasis. Heart size is stable. Mediastinal structures are stable and grossly unremarkable. No evidence for hilar prominence. Degenerative changes dorsal spine. IMPRESSION: 1. No evidence for acute pulmonary disease.
[2018-10-16] MEDS ORDERED: IPRATROPIUM-ALBUTEROL 3 ML NEB INHALATION PRN (12:05)
[2018-10-16] MEDS: HEPARIN SODIUM,PORCINE 5,000 UNIT/ML 1 ML VIAL SQ SCH ×2 (16:28→23:47)
[2018-10-16] MEDS: AZITHROMYCIN 250 MG TAB PO SCH (16:28)
--- NOTE | 2018-10-16 16:38 | P.CNPUL ---
History of Present Illness Consult date: 10/16/18 Reason for consult: COPD History of present illness: 78-year-old male patient with known history of COPD was coming in 1 acute COPD exacerbation. The patient was having hard time breathing over the past 48 hours. His was dropping his pulse ox done in the low 80s. Based on that the patient was brought into the hospital. Denies having any chest pain. No angina. He has increased dyspnea cough chest tightness and wheezing typically of an underlying COPD exacerbation. No pleurisy. No hemoptysis. Influenza screen has not been done. No swelling lower extremities. No travel history. No sick contacts. No smoking. No exposure to any nephrotoxic agents or respiratory irritants. Chest x-rays. Acute pulmonary infiltrates. The patient is hemodynamically stable. Already feeling better on IV Solu-Medrol. He has no maintenance medications regarding his COPD he uses only a little solution and Ventolin rescue inhaler when necessary. The patient has known history of advanced COPD with an FEV1 of 20% of predicted. He was maintained on Symbicort in the past and currently is off the medication. Is also known to have obstructive sleep apnea with an AHI of 17 consistent with moderately severe disease yet he was unable to tolerate his CPAP therapy. Is obese and has chronic history of atrial fibrillation, hyperlipidemia and coronary artery disease. Review of Systems Constitutional Constitutional: no fever, no night sweats, no significant weight loss, no exercise intolerance, weight gain over this past several years. Eyes Eyes: no dry eyes, no vision change, no irritation ENMT Ears: no difficulty hearing, no ear pain Nose: no frequent nosebleeds, no nose problems Mouth/Throat: no sore throat, no bleeding gums, no mouth ulcers, no teeth problems, snoring, dry mouth Cardiovascular Cardiovascular: no chest pain, no arm pain on exertion, no shortness of breath when lying down, no palpitations, no known heart murmur, shortness of breath when walking Respiratory Respiratory: He has cough, he has wheezing, no coughing up blood, he has sleep apnea and he has been able to tolerate the treatment., shortness of breath with some progressively getting worse over the past few days. Gastrointestinal Gastrointestinal: no abdominal pain, no nausea, no vomiting, no constipation, normal appetite, no diarrhea, not vomiting blood, no dyspepsia, no GERD Genitourinary Genitourinary: no incontinence, no difficulty urinating, no hematuria, no increased frequency Musculoskeletal Musculoskeletal: no muscle aches, no muscle weakness, no arthralgias/joint pain , no back pain, swelling in the extremities Integumentary Skin: no abnormal mole, no jaundice, no rashes, no laceration Neurologic Neurologic: no loss of consciousness, no weakness, no numbness, no seizures, no dizziness, no migraines, no headaches, no tremor Psychiatric Psych: no depression, no sleep disturbances, feeling safe in a relationship, no alcohol abuse, no anxiety, no hallucinations, no suicidal thoughts Endocrine Endocrine: no fatigue Hematologic/Lymphatic Hematologic/Lymphatic no swollen glands, no bruising, no excessive bleeding Allergic/Immunologic Allergy/Immunologic: no runny nose, no sinus pressure, no itching, no hives, no frequent sneezing Past Medical History Past Medical History: Atrial Fibrillation, Coronary Artery Disease (CAD), COPD, GERD/Reflux, Hyperlipidemia, Myocardial Infarction ([place]), Osteoarthritis (OA), Sleep Apnea/CPAP/BIPAP, Vascular Disorder Additional Past Medical History / Comment(s): COPD with a baseline FEV1 of 20% of predicted, obstructive sleep apnea moderate severe with an AHI of 17, chronic atrial fibrillation, coronary artery disease, obesity with a BMI of 38.7 , hyperlipidemia, coronary artery disease, abdominal aortic aneurysm that has been gradually getting worse and based on recent evaluation he was told that the size of aneurysm is 35 cm under the care of Dr. Stokes, history of right lower extremity phlebitis, history of right wrist fracture, previous history of myocardial infarction Last Myocardial Infarction Date:: 08/2016 History of Any Multi-Drug Resistant Organisms: MRSA Date of last positivie culture/infection: 2007 MDRO Source:: LEFT ARM Past Surgical History: Appendectomy, Heart Catheterization, Heart Catheterization With Stent, Tonsillectomy Additional Past Surgical History / Comment(s): Colonoscopy, R leg vein stripping. Past Anesthesia/Blood Transfusion Reactions: No Reported Reaction Date of Last Stent Placement:: 09/02/16 Smoking Status: Former smoker - Past Family History Father Family Medical History: No Reported History Additional Family Medical History / Comment(s): in his 80's HAD HEART ISSUES Mother Family Medical History: Dementia Additional Family Medical History / Comment(s): Mother in her 80's Sister(s) Family Medical History: CVA/TIA Daughter(s) Family Medical History: No Reported History Son(s) Family Medical History: No Reported History Medications and Allergies Home Medications Medication Instructions Recorded Confirmed Type Atorvastatin [Lipitor] 80 mg PO HS #30 tab 08/18/16 10/16/18 Rx Clopidogrel [Plavix] 75 mg PO DAILY 30 Days tab 08/18/16 10/16/18 Rx Albuterol Sulfate [Proair Hfa] 1 - 2 puff INHALATION RT-Q6H PRN 11/07/17 History Albuterol Nebulized [Ventolin 2.5 mg INHALATION RT-QID PRN 12/08/17 10/16/18 History Nebulized] Aspirin 81 mg PO DAILY chew 12/11/17 10/16/18 Rx Allergies Allergy/AdvReac Type Severity Reaction Status Date / Time Penicillins Allergy Anaphylaxis Verified 10/16/18 11:21 Physical Exam Vitals: Vital Signs Temp Pulse Resp BP Pulse Ox 10/16/18 12:25 95 10/16/18 12:00 97.9 F 82 23 128/55 96 10/16/18 11:59 97 10/16/18 11:00 79 15 144/68 97 10/16/18 10:55 24 10/16/18 10:50 79 10/16/18 10:25 98.2 F 53 L 24 144/68 95 Intake and Output 10/16/18 10/16/18 10/16/18 06:59 14:59 22:59 Other: Weight 129.274 kg General Appearance no diaphoresis, no respiratory distress, speech not interrupted by breaths, no dyspnea, no pallor, not cachectic, well nourished, appears well, obesity HEENT no pursed lip breathing, no jugular venous distention, no mucous membrane cyanosis, no perioral cyanosis, mallampati classification: class 1, Mallampati Classification: Class 4 Chest the patient has a bit of chest addition to diminished breath sound bilaterally along with prolongation of the expiratory phase of breathing and diffuse expiratory wheezes throughout the lung his bilaterally. Heart no right ventricular heave, no distant heart sounds, no s3 gallop GI bowel sounds: hyperactive (borborygmi), bowel sounds: diminished or absent Extremities no cyanosis, no clubbing, edema, Neurologic no decreased mental status, no somnolence, no confusion General Appearance normal, (normal) normal except as noted Results - Laboratory Findings CBC and BMP: 10/16/18 10:48 10/16/18 10:48 PT/INR, D-dimer PT 11.3 sec (9.0-12.0) 10/16/18 10:48 INR 1.1 (<1.2) 10/16/18 10:48 Abnormal lab findings: Abnormal Labs 10/16/18 10/16/18 10:48 10:48 Chloride 108 H Glucose 147 H Total Bilirubin 1.7 H CK-MB (CK-2) 2.5 H Total Protein 6.1 L - Diagnostic Findings Chest x-ray: image reviewed Assessment and Plan Plan: 1 acute exacerbation of chronic obstructive airways disease- patient shortness of breath is most likely related to an underlying COPD exacerbation. The chest x-ray is free of any acute pulmonary infiltrates. The exact exacerbating factor is not clear. We'll do an influenza screen. 2 chronic obstructive lung disease severe COPD with an FEV1 of 28% of predicted. 3 obstructive sleep apnea syndrome The patient did do a home study and was positive for obstructive sleep apnea and he had an apnea index of 17 currently is is not utilizing CPAP therapy has been off treatment. 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 We will put the patient on DuoNeb nebulized treatments around the clock. We'll put the patient IV Solu- Medrol. We'll put the patient on empiric antibiotic coverage with oral Zithromax , to 50 mg by mouth daily. Resume outpatient medications. Optimize COPD. We'll continue to follow. Heparin subcu for DVT prophylaxis.
[2018-10-16 17:04] LABS: Glucose,Whole Blood 186 mg/dL (75-99)
[2018-10-16] MEDS: INSULIN ASPART (NovoLOG) 100 UNIT/ML VIAL SQ SCH ×2 (17:50→20:44)
[2018-10-16] MEDS: methylPREDNISolone SOD SUCCI 125 MG/2 ML VIAL IV SCH ×2 (17:51→23:47)
[2018-10-16] MEDS ORDERED: FORMOTEROL FUMARATE 20 MCG/2 ML NEBU INHALATION SCH (20:00)
[2018-10-16 20:05] LABS: Hemoglobin A1C 6.2 % (4.0-6.0)
--- NOTE | 2018-10-16 20:05 | P.HPIM ---
History of Present Illness H&P Date: 10/16/18 Chief Complaint: Acute respiratory failure, COPD exacerbation, severe purulent tracheal bron 68-year-old male one of Dr. Azul patient who seen Dr. Berumen pulmonary and seen cardiology regular basis has not have history of advanced COPD, advance atherosclerotic heart disease post multiple angioplasty and stent placement who has not been in the hospital since last year. Patient developed to have worsening shortness of breath and dyspnea with severe hypoxia require higher level of oxygen to keep his pulse ox above 90 percentile has been having inspiratory expiratory wheezes with significant tightness of the chest. Symptoms become much worse afternoon today ended up coming to the emergency department at [facility] where was seen and evaluated chest x-ray did not show any major infiltrate. Influenza was negative. Patient was started on Solu-Medrol, updraft treatment [id number], higher dose of steroid along with Pulmicort, consult pulmonary and admit patient to the hospital. Review of Systems CONSTITUTIONAL: Obese in mild respiratory distress. EYES: No icterus sclerae, no conjunctivitis. EARS, NOSE, MOUTH, THROAT, and FACE: No sore throat, lymphadenopathy, carotid bruits or deformity. RESPIRATORY: Positive shortness of breath cough wheezes CARDIOVASCULAR: Positive shortness of breath, palpitation, PND and orthopnea but no angina. GASTROINTESTINAL: No Abd pain, Nausea or vomiting, no Diarrhea or constipation, No GI Bleed, no distention or masses. GENITOURINARY: Negative for Hematuria or UTI, no kidney stones. INTEGUMENT/BREAST: Negative for any muscular injury with mild osteoarthritis.. HEMATOLOGIC/LYMPHATIC: Negative for bleed or purpura. MUSCULOSKELTAL: Negative for Myalgia or arthralgia. NEURLOGICAL: No LOC, Sz or syncope, blurred vision dizziness or abnormality.. BEHAVIORAL/PSYCH: Negative. ENDOCRINE: Negative. Past Medical History Past Medical History: Atrial Fibrillation, Coronary Artery Disease (CAD), COPD, GERD/Reflux, Hyperlipidemia, Myocardial Infarction ([place]), Osteoarthritis (OA), Sleep Apnea/CPAP/BIPAP, Vascular Disorder Additional Past Medical History / Comment(s): COPD with a baseline FEV1 of 20% of predicted, obstructive sleep apnea moderate severe with an AHI of 17, chronic atrial fibrillation, coronary artery disease, obesity with a BMI of 38.7 , hyperlipidemia, coronary artery disease, abdominal aortic aneurysm that has been gradually getting worse and based on recent evaluation he was told that the size of aneurysm is 35 cm under the care of Dr. Stokes, history of right lower extremity phlebitis, history of right wrist fracture, previous history of myocardial infarction Last Myocardial Infarction Date:: 08/2016 History of Any Multi-Drug Resistant Organisms: MRSA Date of last positivie culture/infection: 2007 MDRO Source:: LEFT ARM Past Surgical History: Appendectomy, Heart Catheterization, Heart Catheterization With Stent, Tonsillectomy Additional Past Surgical History / Comment(s): Colonoscopy, R leg vein stripping. Past Anesthesia/Blood Transfusion Reactions: No Reported Reaction Date of Last Stent Placement:: 09/02/16 Smoking Status: Former smoker - Past Family History Father Family Medical History: No Reported History Additional Family Medical History / Comment(s): in his 80's HAD HEART ISSUES Mother Family Medical History: Dementia Additional Family Medical History / Comment(s): Mother in her 80's Sister(s) Family Medical History: CVA/TIA Daughter(s) Family Medical History: No Reported History Son(s) Family Medical History: No Reported History Medications and Allergies Home Medications Medication Instructions Recorded Confirmed Type Atorvastatin [Lipitor] 80 mg PO HS #30 tab 08/18/16 10/16/18 Rx Clopidogrel [Plavix] 75 mg PO DAILY 30 Days tab 08/18/16 10/16/18 Rx Albuterol Sulfate [Proair Hfa] 1 - 2 puff INHALATION RT-Q6H PRN 11/07/17 History Albuterol Nebulized [Ventolin 2.5 mg INHALATION RT-QID PRN 12/08/17 10/16/18 History Nebulized] Aspirin 81 mg PO DAILY chew 12/11/17 10/16/18 Rx Allergies Allergy/AdvReac Type Severity Reaction Status Date / Time Penicillins Allergy Anaphylaxis Verified 10/16/18 11:21 Physical Exam Vitals: Vital Signs Temp Pulse Resp BP Pulse Ox 10/16/18 16:38 88 18 10/16/18 16:28 87 18 98 10/16/18 12:25 95 10/16/18 12:00 97.9 F 82 23 128/55 96 10/16/18 11:59 97 10/16/18 11:00 79 15 144/68 97 10/16/18 10:55 24 10/16/18 10:50 79 10/16/18 10:25 98.2 F 53 L 24 144/68 95 Intake and Output 10/16/18 10/16/18 10/16/18 06:59 14:59 22:59 Other: # Bowel Movements 0 Weight 129.274 kg General Appearance: Alert, cooperative, mild distress, appears stated age. Neck HEENT: Supple, no lymphadenopathy, no thyroid enlargement, no carotid bruits. Lungs: Decreased breath sounds bilaterally with fine rhonchi in the bases positive expiratory wheezes. Chest Wall: Decreased expansion with deep inspiration no tenderness and no deformity was found on exam, no costochondral pain or discomfort. Heart: IRRegular rate and rhythm, S1, S2 normal, no murmur, rub or gallop. Back: Symmetric, no curvature, ROM normal, no CVA tenderness. Abdomen: Soft, non-tender, bowel sounds active all four quadrants, no masses, no organomegaly. Extremities: Extremities normal, atraumatic, no cyanosis or edema. Pulses: 2+ and symmetric. Skin: Skin color, texture, tugor normal, no rashes or lesions. Neurologic: Alert oriented x3 cranial nerves II through XII intact, no motor deficit, no abnormal balance or gait. Results CBC & Chem 7: 10/16/18 10:48 10/16/18 10:48 Labs: Abnormal Lab Results - Last 24 Hours (Table) 10/16/18 10/16/18 10/16/18 Range/Units 10:48 10:48 17:02 Chloride 108 H (98-107) mmol/L Glucose 147 H (74-99) mg/dL POC Glucose (mg/dL) 186 H (75-99) mg/dL Total Bilirubin 1.7 H (0.2-1.3) mg/dL CK-MB (CK-2) 2.5 H (0.0-2.4) ng/mL Total Protein 6.1 L (6.3-8.2) g/dL Thrombosis Risk Factor Assmnt - DVT/VTE Prophylaxis DVT/VTE Prophylaxis: Pharmacologic Prophylaxis ordered, Mechanical Prophylaxis ordered - Choose All That Apply Each Factor Represents 1 point: Abnormal pulmonary function (COPD), Obesity ( BMI >25), Serious lung disease incl. pneumonia (< 1month) Other Risk Factors: Yes Each Risk Factor Represents 2 Points: Age 61-74 years Other congenital or acquired thrombophilia - If yes, enter type in comment: No Thrombosis Risk Factor Assessment Total Risk Factor Score: 5 Thrombosis Risk Factor Assessment Level: High Risk Assessment and Plan Plan: 1 acute respiratory failure: Combination of COPD exacerbation along with severe purulent tracheal bronchitis. 2 COPD excessive patient: Patient was admitted to the hospital continue O2 try to keep his pulse ox above 92 percentile will continue patient on Solu-Medrol IV along with Pulmicort and DuoNeb consult pulmonary and advanced treatment. 3 severe tracheal bronchitis: Influenza was negative, chest x-ray doesn't show any sign of major infiltrate, patient was started on azithromycin and if needed will add Rocephin. 4 advance CAD: With multiple [place] angioplasty and stent placement, patient is seeing cardiology regular basis still on atorvastatin and Plavix. 5 A. fib with RVR: Heart rate is mild tachycardia with no A. fib this time. Patient is not on any anticoagulation and if needed smaller dose of calcium channel giovani will be beneficial. 6 hyperglycemia: Will continue patient on Accu-Chek with sliding scales coverage. 7 hyperlipidemia: Patient is on atorvastatin 80 mg daily. 8 GI prophylaxis/GERD: Patient be on Pepcid 20 mg daily. 9 DVT prophylaxis: Patient be on heparin 5000 units subcutaneous every 8 hours. CODE STATUS: Full code. Admit patient to inpatient status for more than 2 nights.
[2018-10-16] MEDS: ATORVASTATIN 80 MG TAB PO SCH (20:21)
[2018-10-16 20:30] LABS: Glucose,Whole Blood 185 mg/dL (75-99)
[2018-10-16] MEDS: FORMOTEROL FUMARATE 20 MCG/2 ML NEBU INHALATION SCH (20:42)
[2018-10-16] MEDS: IPRATROPIUM-ALBUTEROL 3 ML NEB INHALATION SCH (20:42)
[2018-10-16] MEDS: BUDESONIDE 0.5 MG/2 ML NEBU INHALATION SCH (20:42)
[2018-10-17] MEDS: methylPREDNISolone SOD SUCCI 125 MG/2 ML VIAL IV SCH ×3 (05:52→17:59)
[2018-10-17] MEDS: IPRATROPIUM-ALBUTEROL 3 ML NEB INHALATION SCH ×3 (07:34→19:27)
[2018-10-17] MEDS: BUDESONIDE 0.5 MG/2 ML NEBU INHALATION SCH ×2 (07:34→19:27)
[2018-10-17] MEDS: FORMOTEROL FUMARATE 20 MCG/2 ML NEBU INHALATION SCH ×2 (07:34→19:27)
[2018-10-17] MEDS: CLOPIDOGREL 75 MG TAB PO SCH (08:12)
[2018-10-17] MEDS: INSULIN ASPART (NovoLOG) 100 UNIT/ML VIAL SQ SCH ×5 (08:12→21:35)
[2018-10-17] MEDS: AZITHROMYCIN 250 MG TAB PO SCH (08:12)
[2018-10-17] MEDS: HEPARIN SODIUM,PORCINE 5,000 UNIT/ML 1 ML VIAL SQ SCH ×2 (08:12→17:53)
[2018-10-17] MEDS: FAMOTIDINE 20 MG TAB PO SCH (08:12)
[2018-10-17] MEDS: ASPIRIN 81 MG PO SCH (08:12)
[2018-10-17 11:56] LABS: Glucose,Whole Blood 164 mg/dL (75-99)
[2018-10-17 11:57] LABS: Glucose,Whole Blood 214 mg/dL (75-99)
--- NOTE | 2018-10-17 12:57 | P.PN ---
Subjective Progress Note Date: 10/17/18 68-year-old male one of Dr. Azul patient who seen Dr. Berumen pulmonary and seen cardiology regular basis has not have history of advanced COPD, advance atherosclerotic heart disease post multiple angioplasty and stent placement who has not been in the hospital since last year. Patient developed to have worsening shortness of breath and dyspnea with severe hypoxia require higher level of oxygen to keep his pulse ox above 90 percentile has been having inspiratory expiratory wheezes with significant tightness of the chest. Symptoms become much worse afternoon today ended up coming to the emergency department at [facility] where was seen and evaluated chest x-ray did not show any major infiltrate. Influenza was negative. Patient was started on Solu-Medrol, updraft treatment [id number], higher dose of steroid along with Pulmicort, consult pulmonary and admit patient to the hospital. 10/17: Patient has been afebrile, heart rate running in the 80s, pulse ox 93% on 2 L, blood pressure 152/54. Blood sugars are elevated secondary to steroids and small amount of scheduled NovoLog added to scale. He is currently on NovoLog scale Patient states that his lungs and breathing are much improved from yesterday. No change will be made in Solu-Medrol today. Patient is continued on nebulizer treatments, Pulmicort and oral antibiotics. Anticipate discharge over the weekend. Review of Systems CONSTITUTIONAL: Denies fever or chills. EYES: No icterus sclerae, no conjunctivitis. EARS, NOSE, MOUTH, THROAT, and FACE: No sore throat, lymphadenopathy, carotid bruits or deformity. RESPIRATORY: Positive shortness of breath cough wheezes CARDIOVASCULAR: Positive shortness of breath, palpitation, PND and orthopnea but no angina. GASTROINTESTINAL: No Abd pain, Nausea or vomiting, no Diarrhea or constipation, No GI Bleed, no distention or masses. GENITOURINARY: Negative for Hematuria or UTI, no kidney stones. INTEGUMENT/BREAST: Negative for any muscular injury with mild osteoarthritis.. HEMATOLOGIC/LYMPHATIC: Negative for bleed or purpura. MUSCULOSKELTAL: Negative for Myalgia or arthralgia. NEURLOGICAL: No LOC, Sz or syncope, blurred vision dizziness or abnormality.. BEHAVIORAL/PSYCH: Negative. ENDOCRINE: Negative. Objective - Vital Signs Vital signs: Vital Signs Temp 97.5 F L 10/17/18 04:49 Pulse 82 10/17/18 08:03 Resp 18 10/17/18 04:49 BP 152/54 10/17/18 04:49 Pulse Ox 93 L 10/17/18 04:49 Intake & Output 10/16/18 10/17/18 10/17/18 18:59 06:59 18:59 Intake Total 1390 Balance 1390 Weight 129.274 kg Intake: Oral 1390 Other: # Voids 2 # Bowel Movements 0 - Exam General Appearance: Alert, cooperative,no distress, appears stated age. Neck HEENT: Supple, no lymphadenopathy, no thyroid enlargement, no carotid bruits. Lungs: Decreased breath sounds bilaterally with fine rhonchi in the bases positive expiratory wheezes. Chest Wall: Decreased expansion with deep inspiration no tenderness and no deformity was found on exam, no costochondral pain or discomfort. Heart: IRRegular rate and rhythm, S1, S2 normal, no murmur, rub or gallop. Back: Symmetric, no curvature, ROM normal, no CVA tenderness. Abdomen: Soft, non-tender, bowel sounds active all four quadrants, no masses, no organomegaly. Extremities: Extremities normal, atraumatic, no cyanosis or edema. Pulses: 2+ and symmetric. Skin: Skin color, texture, tugor normal, no rashes or lesions. Neurologic: Alert oriented x3 cranial nerves II through XII intact, no motor deficit, no abnormal balance or gait. - Labs CBC & Chem 7: 10/16/18 10:48 10/16/18 10:48 Labs: Abnormal Lab Results - Last 24 Hours (Table) 10/16/18 10/16/18 10/16/18 Range/Units 10:48 10:48 10:48 Chloride 108 H (98-107) mmol/L Glucose 147 H (74-99) mg/dL POC Glucose (mg/dL) (75-99) mg/dL Hemoglobin A1c 6.2 H (4.0-6.0) % Total Bilirubin 1.7 H (0.2-1.3) mg/dL CK-MB (CK-2) 2.5 H (0.0-2.4) ng/mL Total Protein 6.1 L (6.3-8.2) g/dL 10/16/18 10/16/18 Range/Units 17:02 20:27 Chloride (98-107) mmol/L Glucose (74-99) mg/dL POC Glucose (mg/dL) 186 H 185 H (75-99) mg/dL Hemoglobin A1c (4.0-6.0) % Total Bilirubin (0.2-1.3) mg/dL CK-MB (CK-2) (0.0-2.4) ng/mL Total Protein (6.3-8.2) g/dL Assessment and Plan Plan: 1 acute respiratory distress secondary to COPD exacerbation along with severe purulent tracheal bronchitis. Continue DuoNeb treatments, Pulmicort, IV Solu- Medrol 60 mg every 6 hours, Perforomist twice daily. Consult with Dr. Ata nicholson. 2 COPD exacerbation. Continue as in #1. 3 obstructive sleep apnea, patient noncompliant with CPAP. 4 advance CAD: With multiple [place] angioplasty and stent placement, patient is seeing cardiology regular basis still on aspirin, atorvastatin and Plavix. 5 Paroxysmal atrial fibrillation currently in a sinus rhythm. 6 hyperglycemia secondary to steroids. NovoLog scheduled along with NovoLog scale. 7 hyperlipidemia: Patient is on atorvastatin 80 mg daily. 8 GI prophylaxis/GERD: Patient be on Pepcid 20 mg daily. 9 DVT prophylaxis: Patient be on heparin 5000 units subcutaneous every 8 hours. 10. Chronic hypoxic respiratory failure with home O2. CODE STATUS: Full code. Discharge plan: Home in the next 24-48 hours Impression and plan of care have been directed as dictated by the signing physician. Joy Baxter nurse practitioner acting as scribe for signing physician.
--- NOTE | 2018-10-17 14:02 | P.PN ---
Subjective Progress Note Date: 10/17/18 Principal diagnosis: Acute exacerbation of chronic obstructive pulmonary disease. 78-year-old male patient with known history of COPD was coming in 1 acute COPD exacerbation. The patient was having hard time breathing over the past 48 hours. His was dropping his pulse ox done in the low 80s. Based on that the patient was brought into the hospital. Denies having any chest pain. No angina. He has increased dyspnea cough chest tightness and wheezing typically of an underlying COPD exacerbation. No pleurisy. No hemoptysis. Influenza screen has not been done. No swelling lower extremities. No travel history. No sick contacts. No smoking. No exposure to any nephrotoxic agents or respiratory irritants. Chest x-rays. Acute pulmonary infiltrates. The patient is hemodynamically stable. Already feeling better on IV Solu-Medrol. He has no maintenance medications regarding his COPD he uses only a little solution and Ventolin rescue inhaler when necessary. The patient has known history of advanced COPD with an FEV1 of 20% of predicted. He was maintained on Symbicort in the past and currently is off the medication. Is also known to have obstructive sleep apnea with an AHI of 17 consistent with moderately severe disease yet he was unable to tolerate his CPAP therapy. Is obese and has chronic history of atrial fibrillation, hyperlipidemia and coronary artery disease. The patient is seen today for very 2017 in follow-up on the regular medical floor. He is currently resting quite comfortably in bed. Awake and alert in no acute distress. He is still dyspneic with minimal exertion. Better today compared to yesterday but not quite back to his baseline. He is maintaining O2 saturations in the 90s on 1 L/m per nasal cannula. Afebrile. Hemodynamically stable. Influenza screen negative. He remains on DuoNeb inhalations, Pulmicort and Perforomist inhalations, IV Solu-Medrol and azithromycin. Objective - Vital Signs Vital signs: Vital Signs Temp 97.2 F L 10/17/18 11:55 Pulse 80 10/17/18 13:38 Resp 18 10/17/18 11:55 BP 129/63 10/17/18 11:55 Pulse Ox 93 L 10/17/18 04:49 Intake & Output 10/16/18 10/17/18 10/17/18 18:59 06:59 18:59 Intake Total 1390 Balance 1390 Weight 129.274 kg Intake: Oral 1390 Other: # Voids 2 # Bowel Movements 0 - Exam General Appearance no diaphoresis, no respiratory distress, speech not interrupted by breaths, no dyspnea, no pallor, not cachectic, well nourished, appears well, obesity and 1 L nasal cannula HEENT no pursed lip breathing, no jugular venous distention, no mucous membrane cyanosis, no perioral cyanosis, mallampati classification: class 1, Mallampati Classification: Class 4 Chest the patient has a bit of chest addition to diminished breath sound bilaterally along with prolongation of the expiratory phase of breathing and diffuse expiratory wheezes throughout the lung his bilaterally. Heart no right ventricular heave, no distant heart sounds, no s3 gallop GI bowel sounds: Bowel sounds present. Extremities no cyanosis, no clubbing, edema, Neurologic no decreased mental status, no somnolence, no confusion General Appearance normal, normal except as noted - Labs CBC & Chem 7: 10/16/18 10:48 10/16/18 10:48 Labs: Abnormal Lab Results - Last 24 Hours (Table) 10/16/18 10/16/18 10/16/18 Range/Units 10:48 17:02 20:27 POC Glucose (mg/dL) 186 H 185 H (75-99) mg/dL Hemoglobin A1c 6.2 H (4.0-6.0) % 10/17/18 10/17/18 Range/Units 06:45 11:12 POC Glucose (mg/dL) 164 H 214 H (75-99) mg/dL Hemoglobin A1c (4.0-6.0) % Assessment and Plan Assessment: Impression: 1 acute exacerbation of chronic obstructive airways disease- patient shortness of breath is most likely related to an underlying COPD exacerbation. The chest x-ray is free of any acute pulmonary infiltrates. The exact exacerbating factor is not clear. We'll do an influenza screen. 2 chronic obstructive lung disease severe COPD with an FEV1 of 28% of predicted. 3 obstructive sleep apnea syndrome The patient did do a home study and was positive for obstructive sleep apnea and he had an apnea index of 17 currently is is not utilizing CPAP therapy has been off treatment. 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 Berumen. He is improved but not quite back to his baseline. We'll continue with his current treatment plan. Increase his activity as tolerated. We'll continue to follow. I, the cosigning physician, performed a history & physical examination of the patient. Lungs sounds with bilateral end expiratory wheeze. Maintaining good O2 saturations in the 90s on 1 L/m per nasal cannula. I discussed the assessment and plan of care with my nurse practitioner, January West. I attest to the above note as dictated by her.
[2018-10-17 17:09] LABS: Glucose,Whole Blood 152 mg/dL (75-99)
[2018-10-17 20:56] LABS: Glucose,Whole Blood 180 mg/dL (75-99)
[2018-10-17] MEDS: ATORVASTATIN 80 MG TAB PO SCH (21:35)
[2018-10-17 21:37] VITALS: RESP 16
[2018-10-18] MEDS: HEPARIN SODIUM,PORCINE 5,000 UNIT/ML 1 ML VIAL SQ SCH ×2 (00:39→07:48)
[2018-10-18] MEDS: methylPREDNISolone SOD SUCCI 125 MG/2 ML VIAL IV SCH ×3 (00:40→12:35)
[2018-10-18 04:55] VITALS: BP 101/58; TEMP 97.8
[2018-10-18 06:50] LABS: Glucose,Whole Blood 214 mg/dL (75-99)
[2018-10-18] MEDS: FORMOTEROL FUMARATE 20 MCG/2 ML NEBU INHALATION SCH (07:22)
[2018-10-18] MEDS: BUDESONIDE 0.5 MG/2 ML NEBU INHALATION SCH (07:22)
[2018-10-18] MEDS: IPRATROPIUM-ALBUTEROL 3 ML NEB INHALATION SCH ×2 (07:22→13:07)
[2018-10-18] MEDS: INSULIN ASPART (NovoLOG) 100 UNIT/ML VIAL SQ SCH ×4 (07:48→12:35)
[2018-10-18] MEDS: FAMOTIDINE 20 MG TAB PO SCH (07:49)
[2018-10-18] MEDS: CLOPIDOGREL 75 MG TAB PO SCH (07:49)
[2018-10-18] MEDS: ASPIRIN 81 MG PO SCH (07:49)
[2018-10-18] MEDS: AZITHROMYCIN 250 MG TAB PO SCH (07:52)
--- NOTE | 2018-10-18 11:11 | P.DS ---
Providers Date of admission: 10/16/18 12:06 Attending physician: Mariano Wayne Consults: 10/16/18 12:05 Consult Physician Routine Consulting Provider: Nicolasa Berumen Consult Reason/Comments: COPD exacerbation Do you want consulting provider notified?: Yes Primary care physician: [facility] Course: 68-year-old male one of Dr. Azul patient who seen Dr. Berumen pulmonary and seen cardiology regular basis has not have history of advanced COPD, advance atherosclerotic heart disease post multiple angioplasty and stent placement who has not been in the hospital since last year. Patient developed to have worsening shortness of breath and dyspnea with severe hypoxia require higher level of oxygen to keep his pulse ox above 90 percentile has been having inspiratory expiratory wheezes with significant tightness of the chest. Symptoms become much worse afternoon today ended up coming to the emergency department at [facility] where was seen and evaluated chest x-ray did not show any major infiltrate. Influenza was negative. Patient was started on Solu-Medrol, updraft treatment [id number], higher dose of steroid along with Pulmicort, consult pulmonary and admit patient to the hospital. 10/17: Patient has been afebrile, heart rate running in the 80s, pulse ox 93% on 2 L, blood pressure 152/54. Blood sugars are elevated secondary to steroids and small amount of scheduled NovoLog added to scale. He is currently on NovoLog scale Patient states that his lungs and breathing are much improved from yesterday. No change will be made in Solu-Medrol today. Patient is continued on nebulizer treatments, Pulmicort and oral antibiotics. Anticipate discharge over the weekend. 10/18: Patient is resting comfortably in bed. Patient states that he is feeling much better and is anxious to go home. Patient has been afebrile, heart rate running in 80s, pulse pulse ox 94% on room air, blood pressure 101/58. Blood sugars continue to be elevated at 214. Patient isn't currently on a NovoLog scale. Patient states that his lungs and breathing are improved since yesterday. Patient has not been seen by pulmonology yet. Anticipating discharge possibly today or tomorrow. Review of Systems CONSTITUTIONAL: Denies fever or chills. EYES: No icterus sclerae, no conjunctivitis. EARS, NOSE, MOUTH, THROAT, and FACE: No sore throat, lymphadenopathy, carotid bruits or deformity. RESPIRATORY: Positive shortness of breath cough wheezes CARDIOVASCULAR: Positive shortness of breath, palpitation, PND and orthopnea but no angina. GASTROINTESTINAL: No Abd pain, Nausea or vomiting, no Diarrhea or constipation, No GI Bleed, no distention or masses. GENITOURINARY: Negative for Hematuria or UTI, no kidney stones. INTEGUMENT/BREAST: Negative for any muscular injury with mild osteoarthritis.. HEMATOLOGIC/LYMPHATIC: Negative for bleed or purpura. MUSCULOSKELTAL: Negative for Myalgia or arthralgia. NEURLOGICAL: No LOC, Sz or syncope, blurred vision dizziness or abnormality.. BEHAVIORAL/PSYCH: Negative. ENDOCRINE: Negative. Objective - Vital Signs Vital signs: Vital Signs Temp 97.8 F 10/18/18 04:54 Pulse 84 10/18/18 07:47 Resp 16 10/18/18 04:54 BP 101/58 10/18/18 04:54 Pulse Ox 94 L 10/18/18 04:54 Intake & Output 10/17/18 10/18/18 10/18/18 18:59 06:59 18:59 Intake Total 720 Balance 720 Intake: Oral 720 Other: # Voids 2 1 - Exam General Appearance: Alert, cooperative,no distress, appears stated age. Neck HEENT: Supple, no lymphadenopathy, no thyroid enlargement, no carotid bruits. Lungs: Decreased breath sounds bilaterally with fine rhonchi in the bases positive expiratory wheezes. Chest Wall: Decreased expansion with deep inspiration no tenderness and no deformity was found on exam, no costochondral pain or discomfort. Heart: IRRegular rate and rhythm, S1, S2 normal, no murmur, rub or gallop. Back: Symmetric, no curvature, ROM normal, no CVA tenderness. Abdomen: Soft, non-tender, bowel sounds active all four quadrants, no masses, no organomegaly. Extremities: Extremities normal, atraumatic, no cyanosis or edema. Pulses: 2+ and symmetric. Skin: Skin color, texture, tugor normal, no rashes or lesions. Neurologic: Alert oriented x3 cranial nerves II through XII intact, no motor deficit, no abnormal balance or gait. Assessment and Plan Plan: 1 acute respiratory distress secondary to COPD exacerbation along with severe purulent tracheal bronchitis. To be discharged on prednisone, DuoNeb treatments , Pulmicort, Perforomist, and prednisone tapering dose. 2 COPD exacerbation. Continue as in #1. 3 obstructive sleep apnea, patient noncompliant with CPAP. 4 advance CAD: With multiple VT angioplasty and stent placement, patient is seeing cardiology regular basis still on aspirin, atorvastatin and Plavix. 5 Paroxysmal atrial fibrillation currently in a sinus rhythm. 6 hyperglycemia secondary to steroids. Discharge home on Janumet 5500 milligrams tablets by mouth twice a day. 7 hyperlipidemia: Patient is on atorvastatin 80 mg daily. 8 GI prophylaxis/GERD: Patient be on Pepcid 20 mg daily. 9 DVT prophylaxis: Patient be on heparin 5000 units subcutaneous every 8 hours. 10. Chronic hypoxic respiratory failure with home O2. Disposition: Home with self-care Impression and plan of care have been directed as dictated by the signing physician. Smita Tay nurse practitioner acting as scribe for signing physician. Patient Condition at Discharge: Serious Plan - Discharge Summary Discharge Rx Participant: No New Discharge Prescriptions: New Azithromycin [Zithromax] 250 mg PO DAILY #7 tab Budesonide [Pulmicort] 0.5 mg INHALATION RT-BID #60 nebu Formoterol Fumarate [Perforomist] 20 mcg INHALATION RT-BID #60 nebu Ipratropium-Albuterol Nebulize [Duoneb 0.5 mg-3 mg/3 ml Soln] 3 ml INHALATION RT-QID #120 ampul.neb predniSONE 10 mg PO DAILY #45 tab sitaGLIPtin PHOS/metFORMIN HCL [Janumet 50-500 mg Tablet] 1 each PO BID #60 tab Continue Atorvastatin [Lipitor] 80 mg PO HS #30 tab Clopidogrel [Plavix] 75 mg PO DAILY 30 Days tab Albuterol Sulfate [Proair Hfa] 1 - 2 puff INHALATION RT-Q6H PRN PRN Reason: Shortness Of Breath Albuterol Nebulized [Ventolin Nebulized] 2.5 mg INHALATION RT-QID PRN PRN Reason: Shortness Of Breath Aspirin 81 mg PO DAILY chew Discharge Medication List Atorvastatin [Lipitor] 80 mg PO HS #30 tab 08/18/16 [Rx] Clopidogrel [Plavix] 75 mg PO DAILY 30 Days tab 08/18/16 [Rx] Albuterol Sulfate [Proair Hfa] 1 - 2 puff INHALATION RT-Q6H PRN 03/15/18 [ History] Albuterol Nebulized [Ventolin Nebulized] 2.5 mg INHALATION RT-QID PRN 12/08/17 [ History] Aspirin 81 mg PO DAILY chew 12/11/17 [Rx] Azithromycin [Zithromax] 250 mg PO DAILY #7 tab 10/18/18 [Rx] Budesonide [Pulmicort] 0.5 mg INHALATION RT-BID #60 nebu 10/18/18 [Rx] Formoterol Fumarate [Perforomist] 20 mcg INHALATION RT-BID #60 nebu 10/18/18 [Rx ] Ipratropium-Albuterol Nebulize [Duoneb 0.5 mg-3 mg/3 ml Soln] 3 ml INHALATION RT -QID #120 ampul.neb 10/18/18 [Rx] predniSONE 10 mg PO DAILY #45 tab 10/18/18 [Rx] sitaGLIPtin PHOS/metFORMIN HCL [Janumet 50-500 mg Tablet] 1 each PO BID #60 tab 10/18/18 [Rx] Follow up Appointment(s)/Referral(s): Laron Holland DO [Primary Care Provider] - 1-2 days Nicolasa Berumen MD [STAFF PHYSICIAN] - 1 Week Discharge Disposition: HOME SELF-CARE
[2018-10-18 11:18] LABS: Glucose,Whole Blood 181 mg/dL (75-99)
[2018-10-18 13:18] VITALS: PULSE 84
--- NOTE | 2018-10-18 15:20 | P.PN ---
Subjective Progress Note Date: 10/18/18 78-year-old male patient with known history of COPD was coming in 1 acute COPD exacerbation. The patient was having hard time breathing over the past 48 hours. His was dropping his pulse ox done in the low 80s. Based on that the patient was brought into the hospital. Denies having any chest pain. No angina. He has increased dyspnea cough chest tightness and wheezing typically of an underlying COPD exacerbation. No pleurisy. No hemoptysis. Influenza screen has not been done. No swelling lower extremities. No travel history. No sick contacts. No smoking. No exposure to any nephrotoxic agents or respiratory irritants. Chest x-rays. Acute pulmonary infiltrates. The patient is hemodynamically stable. Already feeling better on IV Solu-Medrol. He has no maintenance medications regarding his COPD he uses only a little solution and Ventolin rescue inhaler when necessary. The patient has known history of advanced COPD with an FEV1 of 20% of predicted. He was maintained on Symbicort in the past and currently is off the medication. Is also known to have obstructive sleep apnea with an AHI of 17 consistent with moderately severe disease yet he was unable to tolerate his CPAP therapy. Is obese and has chronic history of atrial fibrillation, hyperlipidemia and coronary artery disease. The patient is seen today for 10/17/2018 in follow-up on the regular medical floor. He is currently resting quite comfortably in bed. Awake and alert in no acute distress. He is still dyspneic with minimal exertion. Better today compared to yesterday but not quite back to his baseline. He is maintaining O2 saturations in the 90s on 1 L/m per nasal cannula. Afebrile. Hemodynamically stable. Influenza screen negative. He remains on DuoNeb inhalations, Pulmicort and Perforomist inhalations, IV Solu-Medrol and azithromycin. On today's evaluation of 10/18/2018, the patient seems to be much improved since yesterday and the patient's back to his baseline terms of respiratory status. We checked his pulse ox on room air and his oxidation is also improved. No cough sputum production chest that is so wheezing. No abdominal pain. No altered mentation. No hemoptysis. No pleurisy. It is very much possible that the patient can be discharged home on a prednisone burst taper starting with 40 mg to be tapered by 10 mg every 4 days. He has albuterol nebulizer and Ventolin rescue inhaler at home. Will make further adjustments of his outpatient medication at a later stage. The patient will see me back in the office. Objective - Vital Signs Vital signs: Vital Signs Temp 97.8 F 10/18/18 04:54 Pulse 84 10/18/18 13:17 Resp 16 10/18/18 04:54 BP 101/58 10/18/18 04:54 Pulse Ox 94 L 10/18/18 04:54 Intake & Output 10/17/18 10/18/18 10/18/18 18:59 06:59 18:59 Intake Total 720 Balance 720 Intake: Oral 720 Other: # Voids 2 1 - Exam General Appearance no diaphoresis, no respiratory distress, speech not interrupted by breaths, no dyspnea, no pallor, not cachectic, well nourished, appears well, obesity HEENT no pursed lip breathing, no jugular venous distention, no mucous membrane cyanosis, no perioral cyanosis, mallampati classification: class 1, Mallampati Classification: Class 4 Chest the patient has a bit of chest addition to diminished breath sound bilaterally along with prolongation of the expiratory phase of breathing and the wheezing has considerably improved compared to yesterday Heart no right ventricular heave, no distant heart sounds, no s3 gallop GI bowel sounds: hyperactive (borborygmi), bowel sounds: diminished or absent Extremities no cyanosis, no clubbing, edema, Neurologic no decreased mental status, no somnolence, no confusion General Appearance normal, (normal) normal except as noted - Labs CBC & Chem 7: 10/16/18 10:48 10/16/18 10:48 Labs: Abnormal Lab Results - Last 24 Hours (Table) 10/17/18 10/17/18 10/18/18 Range/Units 17:07 20:53 06:46 POC Glucose (mg/dL) 152 H 180 H 214 H (75-99) mg/dL 10/18/18 Range/Units 11:16 POC Glucose (mg/dL) 181 H (75-99) mg/dL Microbiology - Last 24 Hours (Table) 10/16/18 10:46 Blood Culture - Preliminary Blood No Growth after 24 hours Assessment and Plan Plan: 1 acute exacerbation of chronic obstructive airways disease- patient shortness of breath is most likely related to an underlying COPD exacerbation. The chest x-ray is free of any acute pulmonary infiltrates. The exact exacerbating factor is not clear. We'll do an influenza screen and this came back negative. The patient was treated with a combination of bronchodilators and steroids and the patient is back to his baseline. 2 chronic obstructive lung disease severe COPD with an FEV1 of 28% of predicted. 3 obstructive sleep apnea syndrome The patient did do a home study and was positive for obstructive sleep apnea and he had an apnea index of 17 currently is is not utilizing CPAP therapy has been off treatment. 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 Continue vitamin of breath seems on outpatient basis. Not candidate for oxygen therapy yet as the patient does not qualify and he did not demonstrate any exertional oxygen desaturation a pulse ox on room air is above 90%. We'll continue to follow. Discharge home today followed up in the office.
== END 2018-10-18 14:02 | disposition home or self-care (01) | DRG 190 ==
LOC: EC 10:24 → 3NMEDONC 12:06
PROVIDERS: ADMIT Internal Medicine Geriatric Medicine; ATTEND Internal Medicine Geriatric Medicine
DX: J44.1 Chronic obstructive pulmonary disease with (acute) exacerbation (principal); J96.21 Acute and chronic respiratory failure with hypoxia; I48.0 Paroxysmal atrial fibrillation; I71.2 Thoracic aortic aneurysm, without rupture; Z99.81 Dependence on supplemental oxygen; E11.65 Type 2 diabetes mellitus with hyperglycemia; I25.10 Atherosclerotic heart disease of native coronary artery without angina pectoris; M19.90 Unspecified osteoarthritis, unspecified site; K21.9 Gastro-esophageal reflux disease without esophagitis; I25.2 Old myocardial infarction; I10 Essential (primary) hypertension; G47.33 Obstructive sleep apnea (adult) (pediatric); E78.2 Mixed hyperlipidemia; Z68.38 Body mass index [BMI] 38.0-38.9, adult; E66.9 Obesity, unspecified; T38.0X5A Adverse effect of glucocorticoids and synthetic analogues, initial encounter; Z79.899 Other long term (current) drug therapy; Z79.02 Long term (current) use of antithrombotics/antiplatelets; Z79.82 Long term (current) use of aspirin; Z86.72 Personal history of thrombophlebitis; Z86.14 Personal history of Methicillin resistant Staphylococcus aureus infection; Z87.891 Personal history of nicotine dependence; Z90.49 Acquired absence of other specified parts of digestive tract; Z95.5 Presence of coronary angioplasty implant and graft; Z91.19 Patient's noncompliance with other medical treatment and regimen; Z82.3 Family history of stroke; Z81.8 Family history of other mental and behavioral disorders
CPT/HCPCS: 36415; 71046; 80053; 82550; 82553; 83036; 83735; 83880; 84484; 85025; 85610; 85730; 87040; 87502; 93005; 94640; 94760; 96374; 99291

== ENCOUNTER 2018-10-25 14:06 | Inpatient (IN) | payer MEDICARE ==
[2018-10-25] MEDS ORDERED: SODIUM CHLORIDE 0.9% 500 ML 500 ML IV STA (14:17)
--- NOTE | 2018-10-25 14:26 | ED ---
General Adult HPI - General Chief complaint: Arrhythmia/Palpitations Stated complaint: Palptations Time Seen by Provider: 10/25/18 14:10 Source: patient, EMS, RN notes reviewed Mode of arrival: EMS Limitations: no limitations - History of Present Illness Initial comments: This is a 68-year-old male who presents emergency Department complaining of feeling his heart racing. Patient states his been ongoing for 2 hours. Patient states she's had no chest pain no difficulty breathing or shortness of breath. Patient states he's had no recent fever chills or cough. Patient states he was recently seen in the hospital for COPD but he feels as though is getting enough air at this time. Patient denies any lightheadedness or dizziness. Patient denies any drug use. Patient denies any thyroid problems in the past. Patient denies abdominal pain patient denies nausea vomiting diarrhea. Patient denies any swelling to the legs more than normal. Patient states his right leg is always a little swollen because he had a vein removed but it's no more swollen than normal. Patient denies any calf pain - Related Data Home Medications Medication Instructions Recorded Confirmed Albuterol Sulfate [Proair Hfa] 1 - 2 puff INHALATION RT-Q6H PRN 11/07/17 Ibuprofen [Motrin Ib] 200 mg PO BID PRN 10/25/18 10/25/18 glipiZIDE [Glucotrol] 10 mg PO DAILY 10/25/18 10/25/18 Previous Rx's Medication Instructions Recorded Atorvastatin [Lipitor] 80 mg PO HS #30 tab 08/18/16 Clopidogrel [Plavix] 75 mg PO DAILY 30 Days tab 08/18/16 Aspirin 81 mg PO DAILY chew 12/11/17 Ipratropium-Albuterol Nebulize 3 ml INHALATION RT-QID #120 10/18/18 [Duoneb 0.5 mg-3 mg/3 ml Soln] ampul.neb predniSONE 10 mg PO DAILY #45 tab 10/18/18 Allergies Allergy/AdvReac Type Severity Reaction Status Date / Time Penicillins Allergy Anaphylaxis Verified 10/25/18 14:21 Review of Systems ROS Statement: Those systems with pertinent positive or pertinent negative responses have been documented in the HPI. ROS Other: All systems not noted in ROS Statement are negative. Past Medical History Past Medical History: Atrial Fibrillation, Coronary Artery Disease (CAD), COPD, GERD/Reflux, Hyperlipidemia, Myocardial Infarction ([place]), Osteoarthritis (OA), Sleep Apnea/CPAP/BIPAP, Vascular Disorder Additional Past Medical History / Comment(s): COPD with a baseline FEV1 of 20% of predicted, obstructive sleep apnea moderate severe with an AHI of 17, chronic atrial fibrillation, coronary artery disease, obesity with a BMI of 38.7 , hyperlipidemia, coronary artery disease, abdominal aortic aneurysm that has been gradually getting worse and based on recent evaluation he was told that the size of aneurysm is 35 cm under the care of Dr. Stokes, history of right lower extremity phlebitis, history of right wrist fracture, previous history of myocardial infarction Last Myocardial Infarction Date:: 08/2016 History of Any Multi-Drug Resistant Organisms: MRSA Date of last positivie culture/infection: 2007 MDRO Source:: LEFT ARM Past Surgical History: Appendectomy, Heart Catheterization, Heart Catheterization With Stent, Tonsillectomy Additional Past Surgical History / Comment(s): Colonoscopy, R leg vein stripping. Past Anesthesia/Blood Transfusion Reactions: No Reported Reaction Date of Last Stent Placement:: 09/02/16 Past Psychological History: No Psychological Hx Reported Smoking Status: Former smoker - Past Family History Father Family Medical History: No Reported History Additional Family Medical History / Comment(s): in his 80's HAD HEART ISSUES Mother Family Medical History: Dementia Additional Family Medical History / Comment(s): Mother in her 80's Sister(s) Family Medical History: CVA/TIA Daughter(s) Family Medical History: No Reported History Son(s) Family Medical History: No Reported History General Exam - General Exam Comments Initial Comments: GENERAL: Patient is well-developed and well-nourished. Patient is nontoxic and well- hydrated and is in mild distress. ENT: Neck is soft and supple. No significant lymphadenopathy is noted. Oropharynx is clear. Moist mucous membranes. Neck has full range of motion without eliciting any pain. EYES: The sclera were anicteric and conjunctiva were pink and moist. Extraocular movements were intact and pupils were equal round and reactive to light. Eyelids were unremarkable. PULMONARY: Unlabored respirations. Good breath sounds bilaterally. No audible rales rhonchi or wheezing was noted. CARDIOVASCULAR: Patient is tachycardic at about 150 beats a minute. ABDOMEN: Soft and nontender with normal bowel sounds. No palpable organomegaly was noted. There is no palpable pulsatile mass. SKIN: Skin is clear with no lesions or rashes and otherwise unremarkable. NEUROLOGIC: Patient is alert and oriented x3. Cranial nerves II through XII are grossly intact. Motor and sensory are also intact. Normal speech, volume and content. Symmetrical smile. MUSCULOSKELETAL: Normal extremities with adequate strength and full range of motion. LYMPHATICS: No significant lymphadenopathy is noted PSYCHIATRIC: Normal psychiatric evaluation. Limitations: no limitations Course Vital Signs 10/25/18 10/25/18 10/25/18 14:12 14:39 15:31 Temperature 98.3 F Pulse Rate 164 H 168 H Pulse Rate [ 165 H Apical] Respiratory 20 18 Rate Blood Pressure 118/91 106/78 O2 Sat by Pulse 96 97 Oximetry Medical Decision Making - Medical Decision Making EKG shows sinus tachycardia at 168 bpm AK interval 114 QRS is under 12 QT interval is 296 QTC is 494 per patient's EKG shows possible second P wave indicating a flutter rhythm. Chest x-ray shows no acute abnormality. Patient was started on a Cardizem drip at 5 mg an hour. After a while that heart rate did not change. Bumped her to 7.5 mg an hour. I did not give any bolus because of blood pressure was under 110 systolic. I spoke with Dr. Moss doctor tomorrow wanted the patient given a bolus of Cardizem and have the Cardizem bumped attempt milligrams an hour. Patient was started on heparin as well. - Lab Data Result diagrams: 10/25/18 14:32 10/25/18 14:32 Lab Results 10/25/18 10/25/18 10/25/18 Range/Units 14:32 14:32 14:32 WBC 8.9 (3.8-10.6) k/uL RBC 4.97 (4.30-5.90) m/uL Hgb 16.3 (13.0-17.5) gm/dL Hct 48.5 (39.0-53.0) % MCV 97.8 (80.0-100.0) fL MCH 32.9 (25.0-35.0) pg MCHC 33.6 (31.0-37.0) g/dL RDW 13.7 (11.5-15.5) % Plt Count 154 (150-450) k/uL Neutrophils % 90 % Lymphocytes % 6 % Monocytes % 2 % Eosinophils % 1 % Basophils % 0 % Neutrophils # 8.0 H (1.3-7.7) k/uL Lymphocytes # 0.6 L (1.0-4.8) k/uL Monocytes # 0.2 (0-1.0) k/uL Eosinophils # 0.1 (0-0.7) k/uL Basophils # 0.0 (0-0.2) k/uL PT 11.1 (9.0-12.0) sec INR 1.0 (<1.2) APTT 24.8 (22.0-30.0) sec Sodium 138 (137-145) mmol/L Potassium 5.6 H (3.5-5.1) mmol/L Chloride 107 (98-107) mmol/L Carbon Dioxide 23 (22-30) mmol/L Anion Gap 8 mmol/L BUN 26 H (9-20) mg/dL Creatinine 1.13 (0.66-1.25) mg/dL Est GFR (CKD-EPI)AfAm 78 (>60 ml/min/1.73 sqM) Est GFR (CKD-EPI)NonAf 67 (>60 ml/min/1.73 sqM) Glucose 297 H (74-99) mg/dL Calcium 8.8 (8.4-10.2) mg/dL Magnesium 1.9 (1.6-2.3) mg/dL Total Bilirubin 1.9 H (0.2-1.3) mg/dL AST 37 (17-59) U/L ALT 50 (21-72) U/L Alkaline Phosphatase 86 (38-126) U/L Troponin I (0.000-0.034) ng/mL Total Protein 6.0 L (6.3-8.2) g/dL Albumin 3.6 (3.5-5.0) g/dL TSH 1.170 (0.465-4.680) mIU/L Free T4 1.09 (0.78-2.19) ng/dL 10/25/18 Range/Units 14:32 WBC (3.8-10.6) k/uL RBC (4.30-5.90) m/uL Hgb (13.0-17.5) gm/dL Hct (39.0-53.0) % MCV (80.0-100.0) fL MCH (25.0-35.0) pg MCHC (31.0-37.0) g/dL RDW (11.5-15.5) % Plt Count (150-450) k/uL Neutrophils % % Lymphocytes % % Monocytes % % Eosinophils % % Basophils % % Neutrophils # (1.3-7.7) k/uL Lymphocytes # (1.0-4.8) k/uL Monocytes # (0-1.0) k/uL Eosinophils # (0-0.7) k/uL Basophils # (0-0.2) k/uL PT (9.0-12.0) sec INR (<1.2) APTT (22.0-30.0) sec Sodium (137-145) mmol/L Potassium (3.5-5.1) mmol/L Chloride (98-107) mmol/L Carbon Dioxide (22-30) mmol/L Anion Gap mmol/L BUN (9-20) mg/dL Creatinine (0.66-1.25) mg/dL Est GFR (CKD-EPI)AfAm (>60 ml/min/1.73 sqM) Est GFR (CKD-EPI)NonAf (>60 ml/min/1.73 sqM) Glucose (74-99) mg/dL Calcium (8.4-10.2) mg/dL Magnesium (1.6-2.3) mg/dL Total Bilirubin (0.2-1.3) mg/dL AST (17-59) U/L ALT (21-72) U/L Alkaline Phosphatase (38-126) U/L Troponin I <0.012 (0.000-0.034) ng/mL Total Protein (6.3-8.2) g/dL Albumin (3.5-5.0) g/dL TSH (0.465-4.680) mIU/L Free T4 (0.78-2.19) ng/dL Critical Care Time Critical Care Time: Yes Total Critical Care Time: 35 Disposition Clinical Impression: Atrial flutter with rapid ventricular response Disposition: ADMITTED IP TO THIS HOSP Is patient prescribed a controlled substance at d/c from ED?: No Referrals: Laron Holland DO [Primary Care Provider] - 1-2 days Time of Disposition: 16:14
[2018-10-25] MEDS ORDERED: ADENOSINE 3 MG/ML 2 ML VIAL IVP STA ×2 (14:41→14:42)
[2018-10-25 15:00] LABS: Basophils % (A) 0 %; Eosinophils # (A) 0.1 k/uL (0-0.7); Eosinophils % (A) 1 %; HCT 48.5 % (39.0-53.0); HGB 16.3 gm/dL (13.0-17.5); Lymphocytes # (A) 0.6 k/uL (1.0-4.8); Lymphocytes % (A) 6 %; MCH 32.9 pg (25.0-35.0); MCHC 33.6 g/dL (31.0-37.0); MCV 97.8 fL (80.0-100.0); Mean Platelet Volume 8.1; Monocytes # (A) 0.2 k/uL (0-1.0); Monocytes % (A) 2 %; Neutrophils % (A) 90 %; Platelet Count 154 k/uL (150-450); RBC 4.97 m/uL (4.30-5.90); RDW 13.7 % (11.5-15.5); WBC 8.9 k/uL (3.8-10.6)
--- NOTE | 2018-10-25 15:09 | XR ---
EXAMINATION TYPE: XR chest 2V DATE OF EXAM: 10/25/2018 COMPARISON: 10/16/2018 HISTORY: Palpitations TECHNIQUE: Frontal and lateral views of the chest are obtained. FINDINGS: There is no heart failure.. Costophrenic angles are clear. There is some mild nodular infi ltrate in the lingula left upper lobe. There are chest leads. Heart size is normal. IMPRESSION: There is some chronic infiltrate lingula left upper lobe not significantly different jojo n last exam. Also not significantly changed compared to 12/08/2017. This is consistent with scarring. No heart failure.
[2018-10-25 15:11] LABS: Albumin 3.6 g/dL (3.5-5.0); Calcium 8.8 mg/dL (8.4-10.2); Magnesium 1.9 mg/dL (1.6-2.3); Potassium 5.6 mmol/L (3.5-5.1); Total Bilirubin 1.9 mg/dL (0.2-1.3)
[2018-10-25 15:12] LABS: Partial Thromboplastin Time 24.8 sec (22.0-30.0); Prothrombin Time 11.1 sec (9.0-12.0)
[2018-10-25 15:28] LABS: T4, Free (Free Thyroxine) 1.09 ng/dL (0.78-2.19)
[2018-10-25] MEDS: DILTIAZEM 125 MG in SODIUM CHLORIDE 0.9% 100 ML IV SCH (15:29)
[2018-10-25] MEDS ORDERED: HEPARIN SODIUM,PORCINE 5,000 UNIT/ML 1 ML VIAL IV ONE (16:07)
[2018-10-25] MEDS ORDERED: DILTIAZEM DRIP BOLUS FROM BAG 1 MG SOLN IV ONE (16:23)
[2018-10-25] MEDS ORDERED: NALOXONE 0.4 MG/ML 1 ML VIAL IV PRN (16:25)
[2018-10-25] MEDS: HEPARIN SOD,PORK IN 0.45% NACL 25,000 UNIT in 0.45% NACL 1 250ML.BAG IV SCH (17:02)
[2018-10-25 18:12] LABS: Glucose,Whole Blood 199 mg/dL (75-99)
[2018-10-25 18:31] VITALS: BMI 36.8
[2018-10-25 20:02] LABS: Glucose,Whole Blood 180 mg/dL (75-99)
[2018-10-25] MEDS: ATORVASTATIN 80 MG TAB PO SCH (20:42)
[2018-10-25] MEDS: INSULIN ASPART (NovoLOG) 100 UNIT/ML VIAL SQ SCH (20:42)
[2018-10-25] MEDS: SODIUM CHLORIDE 0.9% 1,000 ML IV SCH (20:42)
[2018-10-25 22:28] LABS: Anion Gap 5 mmol/L; Blood Urea Nitrogen 22 mg/dL (9-20); Calcium 8.2 mg/dL (8.4-10.2); Carbon Dioxide 26 mmol/L (22-30); Chloride 109 mmol/L (98-107); Glucose 206 mg/dL (74-99); Magnesium 1.9 mg/dL (1.6-2.3); Potassium 4.4 mmol/L (3.5-5.1); Sodium 140 mmol/L (137-145)
[2018-10-25] MEDS ORDERED: Magnesium Replacement Protocol 1 EACH MISC MISCELLANE PRN (22:39)
[2018-10-25] MEDS: MAGNESIUM SULFATE-D5W PMX 1 GM in DEXTROSE/WATER 1 100ML.BAG IVPB SCH (22:50)
[2018-10-26] MEDS: methylPREDNISolone SOD SUCCI 40 MG/ML 1 ML VIAL IV SCH ×3 (00:04→21:37)
[2018-10-26] MEDS: MAGNESIUM SULFATE-D5W PMX 1 GM in DEXTROSE/WATER 1 100ML.BAG IVPB SCH (00:04)
[2018-10-26 06:40] LABS: Basophils % (A) 0 %; Eosinophils # (A) 0.1 k/uL (0-0.7); Eosinophils % (A) 1 %; HCT 46.7 % (39.0-53.0); HGB 15.2 gm/dL (13.0-17.5); Lymphocytes # (A) 0.8 k/uL (1.0-4.8); Lymphocytes % (A) 10 %; MCH 32.4 pg (25.0-35.0); MCHC 32.6 g/dL (31.0-37.0); MCV 99.5 fL (80.0-100.0); Mean Platelet Volume 7.2; Monocytes # (A) 0.1 k/uL (0-1.0); Monocytes % (A) 2 %; Neutrophils # (A) 7.3 k/uL (1.3-7.7); Neutrophils % (A) 88 %; Platelet Count 146 k/uL (150-450); WBC 8.3 k/uL (3.8-10.6)
[2018-10-26 06:51] LABS: Anion Gap 2 mmol/L; Blood Urea Nitrogen 18 mg/dL (9-20); Calcium 8.5 mg/dL (8.4-10.2); Carbon Dioxide 28 mmol/L (22-30); Chloride 108 mmol/L (98-107); Glucose 209 mg/dL (74-99); Magnesium 2.4 mg/dL (1.6-2.3); Phosphorus 3.3 mg/dL (2.5-4.5); Potassium 5.2 mmol/L (3.5-5.1); Sodium 138 mmol/L (137-145)
[2018-10-26 06:57] LABS: Glucose,Whole Blood 201 mg/dL (75-99)
[2018-10-26] MEDS: IPRATROPIUM-ALBUTEROL 3 ML NEB INHALATION SCH ×4 (06:58→19:37)
[2018-10-26] MEDS ORDERED: HEPARIN SODIUM,PORCINE 5,000 UNIT/ML 1 ML VIAL IV ONE (07:07)
[2018-10-26] MEDS: INSULIN ASPART (NovoLOG) 100 UNIT/ML VIAL SQ SCH ×4 (07:09→21:37)
[2018-10-26] MEDS: PANTOPRAZOLE 40 MG TABLET PO SCH (07:10)
[2018-10-26] MEDS: glipiZIDE 10 MG TAB PO SCH (07:11)
[2018-10-26] MEDS: ASPIRIN 81 MG PO SCH (08:01)
--- NOTE | 2018-10-26 08:37 | P.CRDCN ---
History of Present Illness Consult date: 10/26/18 History of present illness: This is a 68-year-old gentleman with history of coronary artery disease, diabetes mellitus, dyslipidemia, and also paroxysmal atrial fibrillation and sleep apnea. Patient was recently in the hospital with exacerbation of COPD. He now comes to the hospital with complaints of rapid heartbeat and palpitations. He was found to be in atrial flutter with a 2 to one conduction with a rapid heart rate. Patient was started on IV Cardizem. Patient converted to atrial fibrillation with controlled ventricular response. Patient is feeling much better. Denies any chest pain or shortness of breath. Patient is known to have paroxysmal atrial fibrillation. He used to be on xarelto in the past. Patient did not have any side effects and did not have any bleeding episodes. Patient had a cardiac stent placement about 2 years ago. At this point I'm going to discontinue Plavix and put him on combination of aspirin and Xarelto. Patient will also be started on by mouth Cardizem and IV Cardizem will be discontinued after the second dose of by mouth Cardizem. IV heparin and also to be discontinued after patient started on Xarelto. Patient could be moved out of the intensive care unit Review of Systems REVIEW OF SYSTEMS: CONSTITUTIONAL:. Patient is doing well. No complaints of fever or chills EYES: Denies diplopia, blurring of vision EARS, NOSE, MOUTH, THROAT: Denies headaches, denies sore throat. CARDIOVASCULAR: As per HPI RESPIRATORY: Chronically short of breath. GASTROINTESTINAL: Denies change in appetite, denies abdominal pain, denies diarrhea GENITOURINARY: Denies hematuria, denies infections. MUSKULOSKELETAL: Denies pain, denies swelling. Denies any cramps or claudication INTEGUMENTARY: Denies rash, denies eczema. NEUROLOGICAL: Denies focal weakness, or visual disturbance. Denies any dizziness or syncope PSYCHIATRIC: Denies anxiety, denies depression. HEMATOLOGIC/LYMPHATIC: Denies any bleeding, denies enlarged lymph nodes. Past Medical History Past Medical History: Atrial Fibrillation, Coronary Artery Disease (CAD), COPD, GERD/Reflux, Hyperlipidemia, Myocardial Infarction ([place]), Osteoarthritis ([place]), Sleep Apnea/CPAP/BIPAP, Vascular Disorder Additional Past Medical History / Comment(s): COPD with a baseline FEV1 of 20% of predicted, obstructive sleep apnea moderate severe with an AHI of 17, chronic atrial fibrillation, coronary artery disease, obesity with a BMI of 38.7 , hyperlipidemia, coronary artery disease, abdominal aortic aneurysm, history of right lower extremity phlebitis, history of right wrist fracture, previous history of myocardial infarction Last Myocardial Infarction Date:: 08/2016 History of Any Multi-Drug Resistant Organisms: MRSA Date of last positivie culture/infection: 2007 MDRO Source:: leg Past Surgical History: Appendectomy, Heart Catheterization, Heart Catheterization With Stent, Tonsillectomy Additional Past Surgical History / Comment(s): Colonoscopy, R leg vein stripping. Past Anesthesia/Blood Transfusion Reactions: No Reported Reaction Date of Last Stent Placement:: 09/02/16 Past Psychological History: No Psychological Hx Reported Additional Psychological History / Comment(s): Pt resides with spouse. He is independent. He has home oxygen and a nebulizer and a glucometer. Smoking Status: Former smoker Past Alcohol Use History: None Reported, Rare Additional Past Alcohol Use History / Comment(s): Pt started smoking as a teen and quit in 2005. He also chewed during that time frame. Past Drug Use History: None Reported - Past Family History Father Family Medical History: No Reported History Additional Family Medical History / Comment(s): in his 80's HAD HEART ISSUES Mother Family Medical History: Dementia Additional Family Medical History / Comment(s): Mother in her 80's Sister(s) Family Medical History: CVA/TIA Daughter(s) Family Medical History: No Reported History Son(s) Family Medical History: No Reported History Medications and Allergies Home Medications Medication Instructions Recorded Confirmed Type Atorvastatin [Lipitor] 80 mg PO HS #30 tab 08/18/16 10/25/18 Rx Clopidogrel [Plavix] 75 mg PO DAILY 30 Days tab 08/18/16 10/25/18 Rx Albuterol Sulfate [Proair Hfa] 1 - 2 puff INHALATION RT-Q6H PRN 11/07/17 History Aspirin 81 mg PO DAILY chew 12/11/17 10/25/18 Rx Ipratropium-Albuterol Nebulize 3 ml INHALATION RT-QID #120 10/18/18 10/25/18 Rx [Duoneb 0.5 mg-3 mg/3 ml Soln] ampul.neb predniSONE 10 mg PO DAILY #45 tab 10/18/18 10/25/18 Rx Ibuprofen [Motrin Ib] 200 mg PO BID PRN 10/25/18 10/25/18 History glipiZIDE [Glucotrol] 10 mg PO DAILY 10/25/18 10/25/18 History Allergies Allergy/AdvReac Type Severity Reaction Status Date / Time Penicillins Allergy Anaphylaxis Verified 10/25/18 14:21 Physical Exam Vitals: Vital Signs Temp Pulse Pulse Resp BP BP Pulse Ox 10/26/18 08:00 97.5 F L 101 H 20 98/73 94 L 10/26/18 07:30 137 H 20 105/56 93 L 10/26/18 07:09 90 10/26/18 07:00 89 17 107/58 95 10/26/18 06:59 88 10/26/18 06:30 87 24 106/59 95 10/26/18 06:00 95 21 115/68 96 10/26/18 05:30 96 23 111/40 97 10/26/18 05:00 90 16 101/64 98 10/26/18 04:30 80 16 113/84 93 L 10/26/18 04:00 97.6 F 96 11 L 106/64 95 10/26/18 03:30 84 20 99/71 95 10/26/18 03:00 84 20 104/68 95 10/26/18 02:30 80 16 99/61 97 10/26/18 02:00 83 18 117/80 97 10/26/18 01:30 78 18 111/58 96 10/26/18 01:00 85 14 111/58 96 10/26/18 00:30 90 11 L 111/76 93 L 10/26/18 00:00 97.7 F 84 17 96/55 96 10/25/18 23:30 87 18 118/58 96 10/25/18 23:00 95 21 96/57 90 L 10/25/18 22:30 77 22 102/56 95 10/25/18 22:00 82 22 94/58 97 10/25/18 21:30 93 16 111/55 95 10/25/18 21:00 101 H 21 111/64 97 10/25/18 20:30 84 15 107/66 96 10/25/18 20:00 97.6 F 86 10 L 111/77 98 10/25/18 19:33 96 10/25/18 19:00 96 17 112/68 96 10/25/18 18:45 106 H 15 112/68 97 10/25/18 18:30 100 14 93/64 97 10/25/18 18:15 97.9 F 100 19 106/56 97 10/25/18 17:00 176 H 95/69 97 10/25/18 16:54 97.9 F 16 106/56 97 10/25/18 16:30 172 H 101/85 95 10/25/18 16:00 168 H 107/76 96 10/25/18 15:31 168 H 18 106/78 97 10/25/18 15:30 170 H 118/65 96 10/25/18 15:00 168 H 109/85 10/25/18 14:39 165 H 10/25/18 14:30 174 H 118/91 96 10/25/18 14:15 97 10/25/18 14:12 98.3 F 164 H 20 118/91 96 Intake and Output 10/25/18 10/26/18 10/26/18 22:59 06:59 14:59 Intake Total 257.917 400 244.167 Output Total 220 545 350 Balance 37.917 -145 -105.833 Intake: IV 190 400 100 0.9 KVO 140 Sodium Chloride 0.9% 1, 50 400 100 000 ml @ 50 mls/hr IV . Q20H [facility] Rx#:[id number] Intake, IV Titration 67.917 144.167 Amount Diltiazem 125 mg In 67.917 Sodium Chloride 0.9% 100 ml @ 5 MG/HR 5 mls/hr IV .Q24H [facility] Rx#:[id number] Heparin Sod,Pork in 0.45% 144.167 NaCl 25,000 unit In 0.45 % NaCl 1 250ml.bag @ 8.11 UNITS/KG/HR 10 mls/hr IV .Q24H [facility] Rx#:[id number] Output: Urine 220 545 350 Other: Voiding Method Urinal Urinal Weight 126.6 kg GENERAL EXAM: Patient is alert and oriented and doesn't appear to be in any acute distress HEENT: Normocephalic. Normal reaction of pupils, equal size, normal range of extraocular motion. No erythema or exudates in the throat. NECK: No masses, no nuchal rigidity. CHEST: No chest wall deformity. LUNGS: Expiratory wheezing and rhonchi HEART: S1 and S2 normal. Irregular heart rhythm ABDOMEN: No hepatosplenomegaly, normal bowel sounds, no guarding or rigidity. SKIN: No rashes CENTRAL NERVOUS SYSTEM: No focal deficits. EXTREMITIES: Mild edema Results 10/26/18 06:20 10/26/18 06:20 Cardiac Enzymes 10/25/18 10/25/18 10/25/18 Range/Units 14:32 14:32 23:13 AST 37 (17-59) U/L Troponin I <0.012 0.045 H* (0.000-0.034) ng/mL 10/26/18 Range/Units 02:37 AST (17-59) U/L Troponin I 0.040 H* (0.000-0.034) ng/mL Coagulation 10/25/18 10/25/18 10/26/18 Range/Units 14:32 21:52 06:20 PT 11.1 (9.0-12.0) sec APTT 24.8 50.8 H 39.8 H (22.0-30.0) sec CBC 10/25/18 10/26/18 Range/Units 14:32 06:20 WBC 8.9 8.3 (3.8-10.6) k/uL RBC 4.97 4.70 (4.30-5.90) m/uL Hgb 16.3 15.2 (13.0-17.5) gm/dL Hct 48.5 46.7 (39.0-53.0) % Plt Count 154 146 L (150-450) k/uL Comprehensive Metabolic Panel 10/25/18 10/25/18 10/26/18 Range/Units 14:32 21:52 06:20 Sodium 138 140 138 (137-145) mmol/L Potassium 5.6 H 4.4 5.2 H (3.5-5.1) mmol/L Chloride 107 109 H 108 H (98-107) mmol/L Carbon Dioxide 23 26 28 (22-30) mmol/L BUN 26 H 22 H 18 (9-20) mg/dL Creatinine 1.13 0.86 0.72 (0.66-1.25) mg/dL Glucose 297 H 206 H 209 H (74-99) mg/dL Calcium 8.8 8.2 L 8.5 (8.4-10.2) mg/dL AST 37 (17-59) U/L ALT 50 (21-72) U/L Alkaline Phosphatase 86 (38-126) U/L Total Protein 6.0 L (6.3-8.2) g/dL Albumin 3.6 (3.5-5.0) g/dL Current Medications Generic Name Dose Route Start Last Admin Trade Name Freq PRN Reason Stop Dose Admin Albuterol/Ipratropium 3 ml 10/26/18 08:00 10/26/18 06:58 Duoneb 0.5 Mg-3 Mg/3 Ml Soln INHALATION 3 ml RT-QID JOE Administration Aspirin 81 mg 10/26/18 09:00 10/26/18 08:01 Aspirin PO 81 mg DAILY JOE Administration Atorvastatin Calcium 80 mg 10/25/18 21:00 10/25/18 20:42 Lipitor PO 80 mg HS JOE Administration Glipizide 10 mg 10/26/18 07:30 10/26/18 07:11 Glucotrol PO 10 mg AC-BRKFST JOE Administration Diltiazem HCl 125 mg/ Sodium 125 mls @ 5 mls/hr 10/25/18 14:45 10/25/18 22:42 Chloride IV 5 mg/hr .Q24H JOE 5 mls/hr Infusion 5 MG/HR Heparin Sodium/Sodium Chloride 250 mls @ 10 mls/hr 10/25/18 16:15 10/26/18 07 :27 25,000 unit/ Sodium Chloride IV 11.11 units/kg/hr .Q24H JOE 13.7 mls/hr Titration Protocol 8.11 UNITS/KG/HR Sodium Chloride 1,000 mls @ 50 mls/hr 10/25/18 20:00 10/25/18 20:42 Saline 0.9% IV 50 mls/hr .Q20H JOE Administration Insulin Aspart 0 unit 10/25/18 21:00 10/26/18 07:09 Novolog SQ 4 unit ACHS JOE Administration Protocol Methylprednisolone Sodium Succinate 40 mg 10/26/18 00:00 10/26/18 08:00 Solu-Medrol IV 40 mg Q8HR JOE Administration Miscellaneous Information 1 each 10/25/18 22:39 Magnesium Per Protocol MISCELLANE DAILY PRN Per Protocol Protocol Naloxone HCl 0.2 mg 10/25/18 16:25 Narcan IV Q2M PRN Opioid Reversal Pantoprazole Sodium 40 mg 10/26/18 07:30 10/26/18 07:10 Protonix PO 40 mg AC-BRKFST JOE Administration Rivaroxaban 20 mg 10/26/18 17:30 Xarelto PO W/SUPPER [facility] Intake and Output 10/25/18 10/26/18 10/26/18 22:59 06:59 14:59 Intake Total 257.917 400 244.167 Output Total 220 545 350 Balance 37.917 -145 -105.833 Intake: IV 190 400 100 0.9 KVO 140 Sodium Chloride 0.9% 1, 50 400 100 000 ml @ 50 mls/hr IV . Q20H [facility] Rx#:[id number] Intake, IV Titration 67.917 144.167 Amount Diltiazem 125 mg In 67.917 Sodium Chloride 0.9% 100 ml @ 5 MG/HR 5 mls/hr IV .Q24H [facility] Rx#:[id number] Heparin Sod,Pork in 0.45% 144.167 NaCl 25,000 unit In 0.45 % NaCl 1 250ml.bag @ 8.11 UNITS/KG/HR 10 mls/hr IV .Q24H [facility] Rx#:[id number] Output: Urine 220 545 350 Other: Voiding Method Urinal Urinal Weight 126.6 kg 10/26/18 06:20 10/26/18 06:20 EKG Interpretations (text) Initial EKG showed atrial flutter with 2 to one conduction Assessment and Plan (1) Atrial flutter with rapid ventricular response Current Visit: Yes Status: Acute Code(s): I48.92 - UNSPECIFIED ATRIAL FLUTTER SNOMED Code(s): 3735780 (2) HTN (hypertension) Current Visit: No Status: Acute Code(s): I10 - ESSENTIAL (PRIMARY) HYPERTENSION SNOMED Code(s): 51449138 (3) Hyperlipemia Current Visit: No Status: Acute Code(s): E78.5 - HYPERLIPIDEMIA, UNSPECIFIED SNOMED Code(s): 39172868 (4) COPD (chronic obstructive pulmonary disease) Current Visit: Yes Status: Acute Code(s): J44.9 - CHRONIC OBSTRUCTIVE PULMONARY DISEASE, UNSPECIFIED SNOMED Code(s): 46295728 Plan: A she tended to be started on by mouth Cardizem and also Xarelto. IV Cardizem and heparin could be discontinued. Increase activity. May be moved out of intensive care unit.
[2018-10-26] MEDS ORDERED: CLOPIDOGREL 75 MG TAB PO SCH (09:00)
[2018-10-26] MEDS: DILTIAZEM ORAL 60 MG TAB PO SCH ×3 (09:41→21:37)
--- NOTE | 2018-10-26 10:59 | P.HPIM ---
History of Present Illness H&P Date: 10/26/18 This is a 68-year-old male patient of Dr. Holland with a previous medical history significant for paroxysmal atrial fibrillation, hypertension and hypertensive cardiovascular disease, hyperlipidemia, obesity with obstructive sleep apnea, CAD with ST elevation [place] post-PCI of the RCA back in August 2016, advanced COPD with FEV1 of 20% of predicted, diabetes mellitus type 2. Patient was recently hospitalized at [facility] for COPD exacerbation October 16 through the . patient states he is feeling a lot better right now. He states that yesterday around 2 in the afternoon he was sitting watching a basketball game and started feeling his heart beat fast and when slow down. It was not near a time when he had a nebulizer treatment. His face eventually started feeling numb and he thought he should come in to the hospital because he was afraid he was having a stroke. Patient presented to [facility] emergency center for evaluation. EKG was atrial flutter in the 160s. Initial blood pressure 118/91 with repeat at 106/78 Chest x-ray showed no acute abnormality. White count was essentially normal. Sodium 138, potassium 5.6, chloride 107, CO2 23, BUN 26 creatinine 1.13. Blood sugar 297. Patient was given adenosine 6 mg followed by 12 mg and subsequently started on Cardizem drip and heparin drip and admitted to the intensive care unit and cardiology consult requested as well as consult with Dr. Berumen. Review of Systems All systems: negative Constitutional: Denies chills, Denies fever, Denies poor appetite, Denies weakness, Denies weight loss Eyes: denies blurred vision, denies pain Ears, nose, mouth and throat: Denies dysphagia, Denies headache, Denies sore throat, Denies vertigo Cardiovascular: Reports dyspnea on exertion, Reports irregular heart beat, Reports palpitations, Denies chest pain, Denies edema, Denies lightheadedness, Denies shortness of breath, Denies syncope Respiratory: Reports dyspnea, Reports home oxygen, Reports wheezing, Denies cough, Denies cough with sputum, Denies excessive sputum, Denies hemoptysis, Denies respiratory infections Gastrointestinal: Reports loss of appetite, Denies abdominal pain, Denies diarrhea, Denies nausea, Denies vomiting Genitourinary: Denies dysuria Musculoskeletal: Denies arm numbness/tingling, Denies frequent falls, Denies gait dysfunction, Denies leg numbness/tingling, Denies myalgias Integumentary: Denies pruritus, Denies rash, Denies wounds Neurological: Denies aphasia, Denies change in mentation, Denies numbness, Denies vertigo, Denies weakness Psychiatric: Denies anxiety, Denies depression Endocrine: Denies fatigue, Denies weight change Past Medical History Past Medical History: Atrial Fibrillation, Coronary Artery Disease (CAD), COPD, GERD/Reflux, Hyperlipidemia, Myocardial Infarction ([place]), Osteoarthritis (OA), Sleep Apnea/CPAP/BIPAP, Vascular Disorder Additional Past Medical History / Comment(s): COPD with a baseline FEV1 of 20% of predicted, obstructive sleep apnea moderate severe with an AHI of 17, chronic atrial fibrillation, coronary artery disease, obesity with a BMI of 38.7 , hyperlipidemia, coronary artery disease, abdominal aortic aneurysm, history of right lower extremity phlebitis, history of right wrist fracture, previous history of myocardial infarction Last Myocardial Infarction Date:: 08/2016 History of Any Multi-Drug Resistant Organisms: MRSA Date of last positivie culture/infection: 2007 MDRO Source:: leg Past Surgical History: Appendectomy, Heart Catheterization, Heart Catheterization With Stent, Tonsillectomy Additional Past Surgical History / Comment(s): Colonoscopy, R leg vein stripping. Past Anesthesia/Blood Transfusion Reactions: No Reported Reaction Date of Last Stent Placement:: 09/02/16 Past Psychological History: No Psychological Hx Reported Additional Psychological History / Comment(s): Pt resides with spouse. He is independent. He has home oxygen and a nebulizer and a glucometer. Smoking Status: Former smoker Past Alcohol Use History: None Reported, Rare Additional Past Alcohol Use History / Comment(s): Patient was a smoker of 2-3 packs per day for a number of years quit 20 years ago. He denies any alcohol use. He lives at home with his . He also chewed during that time frame. Past Drug Use History: None Reported - Past Family History Father Family Medical History: No Reported History Additional Family Medical History / Comment(s): in his 80's HAD HEART ISSUES Mother Family Medical History: Dementia Additional Family Medical History / Comment(s): Mother in her 80's Sister(s) Family Medical History: CVA/TIA Additional Family Medical History / Comment(s): Patient has 2 sisters. One has history of stroke in 1 has no major medical problems that he is aware of. Patient does not have any brothers. Daughter(s) Family Medical History: No Reported History Son(s) Family Medical History: No Reported History Additional Family Medical History / Comment(s): Patient has 1 son and 2 daughters with no major medical problems. Medications and Allergies Home Medications Medication Instructions Recorded Confirmed Type Atorvastatin [Lipitor] 80 mg PO HS #30 tab 08/18/16 10/25/18 Rx Clopidogrel [Plavix] 75 mg PO DAILY 30 Days tab 08/18/16 10/25/18 Rx Albuterol Sulfate [Proair Hfa] 1 - 2 puff INHALATION RT-Q6H PRN 11/07/17 History Aspirin 81 mg PO DAILY chew 12/11/17 10/25/18 Rx Ipratropium-Albuterol Nebulize 3 ml INHALATION RT-QID #120 10/18/18 10/25/18 Rx [Duoneb 0.5 mg-3 mg/3 ml Soln] ampul.neb predniSONE 10 mg PO DAILY #45 tab 10/18/18 10/25/18 Rx Ibuprofen [Motrin Ib] 200 mg PO BID PRN 10/25/18 10/25/18 History glipiZIDE [Glucotrol] 10 mg PO DAILY 10/25/18 10/25/18 History Allergies Allergy/AdvReac Type Severity Reaction Status Date / Time Penicillins Allergy Anaphylaxis Verified 10/25/18 14:21 Physical Exam Vitals: Vital Signs Temp Pulse Pulse Resp BP BP Pulse Ox 10/26/18 08:00 97.5 F L 101 H 20 98/73 94 L 10/26/18 07:30 137 H 20 105/56 93 L 10/26/18 07:09 90 10/26/18 07:00 89 17 107/58 95 10/26/18 06:59 88 10/26/18 06:30 87 24 106/59 95 10/26/18 06:00 95 21 115/68 96 10/26/18 05:30 96 23 111/40 97 10/26/18 05:00 90 16 101/64 98 10/26/18 04:30 80 16 113/84 93 L 10/26/18 04:00 97.6 F 96 11 L 106/64 95 10/26/18 03:30 84 20 99/71 95 10/26/18 03:00 84 20 104/68 95 10/26/18 02:30 80 16 99/61 97 10/26/18 02:00 83 18 117/80 97 10/26/18 01:30 78 18 111/58 96 10/26/18 01:00 85 14 111/58 96 10/26/18 00:30 90 11 L 111/76 93 L 10/26/18 00:00 97.7 F 84 17 96/55 96 10/25/18 23:30 87 18 118/58 96 10/25/18 23:00 95 21 96/57 90 L 10/25/18 22:30 77 22 102/56 95 10/25/18 22:00 82 22 94/58 97 10/25/18 21:30 93 16 111/55 95 10/25/18 21:00 101 H 21 111/64 97 10/25/18 20:30 84 15 107/66 96 10/25/18 20:00 97.6 F 86 10 L 111/77 98 10/25/18 19:33 96 10/25/18 19:00 96 17 112/68 96 10/25/18 18:45 106 H 15 112/68 97 10/25/18 18:30 100 14 93/64 97 10/25/18 18:15 97.9 F 100 19 106/56 97 10/25/18 17:00 176 H 95/69 97 10/25/18 16:54 97.9 F 16 106/56 97 10/25/18 16:30 172 H 101/85 95 10/25/18 16:00 168 H 107/76 96 10/25/18 15:31 168 H 18 106/78 97 10/25/18 15:30 170 H 118/65 96 10/25/18 15:00 168 H 109/85 10/25/18 14:39 165 H 10/25/18 14:30 174 H 118/91 96 10/25/18 14:15 97 10/25/18 14:12 98.3 F 164 H 20 118/91 96 Intake and Output 10/25/18 10/26/18 10/26/18 22:59 06:59 14:59 Intake Total 257.917 400 244.167 Output Total 220 545 350 Balance 37.917 -145 -105.833 Intake: IV 190 400 100 0.9 KVO 140 Sodium Chloride 0.9% 1, 50 400 100 000 ml @ 50 mls/hr IV . Q20H JOE Rx#:[id number] Intake, IV Titration 67.917 144.167 Amount Diltiazem 125 mg In 67.917 Sodium Chloride 0.9% 100 ml @ 5 MG/HR 5 mls/hr IV .Q24H JOE Rx#:[id number] Heparin Sod,Pork in 0.45% 144.167 NaCl 25,000 unit In 0.45 % NaCl 1 250ml.bag @ 8.11 UNITS/KG/HR 10 mls/hr IV .Q24H JOE Rx#:[id number] Output: Urine 220 545 350 Other: Voiding Method Urinal Urinal Weight 126.6 kg General appearance: mild distress, obese - EENT Eyes: anicteric sclerae, EOMI, PERRLA, no ptosis, no scleral icterus, normal appearance ENT: hearing grossly normal, NA/AT, normal oropharynx, no thrush Ears: bilateral: normal - Neck Neck: no lymphadenopathy, normal ROM, no rigidity, no stridor, no thyromegaly Carotids: bilateral: upstroke normal Thyroid: bilateral: normal size - Respiratory Respiratory: bilateral: diminished, rhonchi, wheezing, prolonged expiration, negative: dullness, rales - Cardiovascular Rhythm: irregular Heart sounds: normal: S1, S2 Abnormal Heart Sounds: systolic murmur - Gastrointestinal General gastrointestinal: normal bowel sounds, soft, no splenomegaly, no tenderness, no umbilical hernia - Integumentary Integumentary: normal, normal turgor - Neurologic Neurologic: CNII-XII intact - Musculoskeletal Musculoskeletal: strength equal bilaterally - Psychiatric Psychiatric: A&O x's 3, appropriate affect, intact judgment & insight Results CBC & Chem 7: 10/26/18 06:20 10/26/18 06:20 Labs: Abnormal Lab Results - Last 24 Hours (Table) 10/25/18 10/25/18 10/25/18 Range/Units 14:32 14:32 18:10 Plt Count (150-450) k/uL Neutrophils # 8.0 H (1.3-7.7) k/uL Lymphocytes # 0.6 L (1.0-4.8) k/uL APTT (22.0-30.0) sec Potassium 5.6 H (3.5-5.1) mmol/L Chloride (98-107) mmol/L BUN 26 H (9-20) mg/dL Glucose 297 H (74-99) mg/dL POC Glucose (mg/dL) 199 H (75-99) mg/dL Calcium (8.4-10.2) mg/dL Magnesium (1.6-2.3) mg/dL Total Bilirubin 1.9 H (0.2-1.3) mg/dL Troponin I (0.000-0.034) ng/mL Total Protein 6.0 L (6.3-8.2) g/dL 10/25/18 10/25/18 10/25/18 Range/Units 20:01 21:52 21:52 Plt Count (150-450) k/uL Neutrophils # (1.3-7.7) k/uL Lymphocytes # (1.0-4.8) k/uL APTT 50.8 H (22.0-30.0) sec Potassium (3.5-5.1) mmol/L Chloride 109 H (98-107) mmol/L BUN 22 H (9-20) mg/dL Glucose 206 H (74-99) mg/dL POC Glucose (mg/dL) 180 H (75-99) mg/dL Calcium 8.2 L (8.4-10.2) mg/dL Magnesium (1.6-2.3) mg/dL Total Bilirubin (0.2-1.3) mg/dL Troponin I (0.000-0.034) ng/mL Total Protein (6.3-8.2) g/dL 10/25/18 10/26/18 10/26/18 Range/Units 23:13 02:37 06:20 Plt Count 146 L (150-450) k/uL Neutrophils # (1.3-7.7) k/uL Lymphocytes # 0.8 L (1.0-4.8) k/uL APTT (22.0-30.0) sec Potassium (3.5-5.1) mmol/L Chloride (98-107) mmol/L BUN (9-20) mg/dL Glucose (74-99) mg/dL POC Glucose (mg/dL) (75-99) mg/dL Calcium (8.4-10.2) mg/dL Magnesium (1.6-2.3) mg/dL Total Bilirubin (0.2-1.3) mg/dL Troponin I 0.045 H* 0.040 H* (0.000-0.034) ng/mL Total Protein (6.3-8.2) g/dL 10/26/18 10/26/18 10/26/18 Range/Units 06:20 06:20 06:56 Plt Count (150-450) k/uL Neutrophils # (1.3-7.7) k/uL Lymphocytes # (1.0-4.8) k/uL APTT 39.8 H (22.0-30.0) sec Potassium 5.2 H (3.5-5.1) mmol/L Chloride 108 H (98-107) mmol/L BUN (9-20) mg/dL Glucose 209 H (74-99) mg/dL POC Glucose (mg/dL) 201 H (75-99) mg/dL Calcium (8.4-10.2) mg/dL Magnesium 2.4 H (1.6-2.3) mg/dL Total Bilirubin (0.2-1.3) mg/dL Troponin I (0.000-0.034) ng/mL Total Protein (6.3-8.2) g/dL Thrombosis Risk Factor Assmnt - DVT/VTE Prophylaxis DVT/VTE Prophylaxis: Pharmacologic Prophylaxis ordered - Choose All That Apply Any of the Below Risk Factors Present?: Yes Each Factor Represents 1 point: Abnormal pulmonary function (COPD), Obesity ( BMI >25) Other Risk Factors: Yes Each Risk Factor Represents 2 Points: Age 61-74 years Other congenital or acquired thrombophilia - If yes, enter type in comment: No Thrombosis Risk Factor Assessment Total Risk Factor Score: 4 Thrombosis Risk Factor Assessment Level: Moderate Risk Assessment and Plan Plan: 1. Acute onset atrial flutter with RVR. Patient has status post adenosine and Cardizem drip will be transitioned to oral Cardizem 60 mg 3 times daily and Xarelto has been started as well. Consult with cardiology appreciated. 2. Acute COPD exacerbation with advanced COPD. Continue DuoNeb treatments 4 times daily, Solu-Medrol 40 mg IV every 8 hours decreased to every 12 hours, consult with Dr. Berumen. 3. Obstructive sleep apnea, noncompliant with CPAP. Patient states that CPAP was not been functioning correctly although they have had it checked multiple times. Patient is not currently using. 4. Coronary artery disease status post multiple angioplasty and stent placement. Continue aspirin 81 mg daily, atorvastatin 80 mg at bedtime and Plavix 75 mg daily. 5. Paroxysmal atrial fibrillation. Cardizem and Xarelto. Cardiology consult appreciated. 6. Diabetes mellitus type 2. Continue Glucotrol 10 mg at breakfast and NovoLog scale before meals and at bedtime. 7. Hyperlipidemia. Continue atorvastatin. 8. Chronic hypoxic respiratory failure 9. DVT prophylaxis. Patient is on heparin drip. 10. GI prophylaxis and gastroesophageal reflux disease. Continue Protonix. Patient will be admitted to the hospital for a minimum of 2 night stay. Discharge plan: Return home Impression and plan of care have been directed as dictated by the signing physician. Joy Baxter nurse practitioner acting as scribe for signing physician.
[2018-10-26 12:04] LABS: Glucose,Whole Blood 181 mg/dL (75-99)
[2018-10-26] MEDS: SODIUM CHLORIDE 0.9% 1,000 ML IV SCH (12:17)
--- NOTE | 2018-10-26 12:34 | P.CNPUL ---
History of Present Illness Consult date: 10/26/18 Chief complaint: Atrial fibrillation/flutter History of present illness: This 68-year-old male patient presented emergency department yesterday with a flutter with a hypervascular response. This made this patient very much shortness of breath. The patient was in the hospital approximately 2 weeks ago for an acute COPD exacerbation. The patient was treated appropriately and the patient was discharged home. While at home and as he was completing a prednisone burst taper, he felt palpitations and rapid heartbeat. Subsequently was found to be in a flutter with 2-1 conduction. The patient came into the ED in the patient was started on a Cardizem drip for rate control. Overnight his heart rate slowed down. Currently is in atrial fibrillation and the rate is under much better control. Cardizem is still running at 5 mg an hour and the patient will be transitioned to oral Cardizem 610 mg 3 times a day. The patient is also on IV heparin. This will be discontinued and the patient will be transitioned to Xarelto. No chest pain. There was some limited troponin leak and cardio is on the case. No angina. No hemoptysis. No pleurisy. No syncope. No change in mental status. Chest x-ray shows chronic infiltration of the left upper lobe not changed since 2018. Noted the patient also has history of obstructive sleep apnea. Hasn't been able to tolerate CPAP therapy in the past and currently is not taking any CPAP treatment. He is a chronic smoker. Review of Systems Constitutional: Denies chills, Denies fever, Denies poor appetite, Denies weakness, Denies weight loss Eyes: denies blurred vision, denies pain Ears, nose, mouth and throat: Denies dysphagia, Denies headache, Denies sore throat, Denies vertigo Cardiovascular: Reports dyspnea on exertion, Reports irregular heart beat, Reports palpitations, Denies chest pain, Denies edema, Denies lightheadedness, Denies shortness of breath, Denies syncope Respiratory: Reports dyspnea, Reports home oxygen, Reports wheezing, Denies cough, Denies cough with sputum, Denies excessive sputum, Denies hemoptysis, Denies respiratory infections Gastrointestinal: Reports loss of appetite, Denies abdominal pain, Denies diarrhea, Denies nausea, Denies vomiting Genitourinary: Denies dysuria Musculoskeletal: Denies arm numbness/tingling, Denies frequent falls, Denies gait dysfunction, Denies leg numbness/tingling, Denies myalgias Integumentary: Denies pruritus, Denies rash, Denies wounds Neurological: Denies aphasia, Denies change in mentation, Denies numbness, Denies vertigo, Denies weakness Psychiatric: Denies anxiety, Denies depression Endocrine: Denies fatigue, Denies weight change Past Medical History Past Medical History: Atrial Fibrillation, Coronary Artery Disease (CAD), COPD, GERD/Reflux, Hyperlipidemia, Myocardial Infarction (NM), Osteoarthritis (OA), Sleep Apnea/CPAP/BIPAP, Vascular Disorder Additional Past Medical History / Comment(s): COPD with a baseline FEV1 of 20% of predicted, obstructive sleep apnea moderate severe with an AHI of 17, chronic atrial fibrillation, coronary artery disease, obesity with a BMI of 38.7 , hyperlipidemia, coronary artery disease, abdominal aortic aneurysm, history of right lower extremity phlebitis, history of right wrist fracture, previous history of myocardial infarction Last Myocardial Infarction Date:: 08/2016 History of Any Multi-Drug Resistant Organisms: MRSA Date of last positivie culture/infection: 2007 MDRO Source:: leg Past Surgical History: Appendectomy, Heart Catheterization, Heart Catheterization With Stent, Tonsillectomy Additional Past Surgical History / Comment(s): Colonoscopy, R leg vein stripping. Past Anesthesia/Blood Transfusion Reactions: No Reported Reaction Date of Last Stent Placement:: 09/02/16 Past Psychological History: No Psychological Hx Reported Additional Psychological History / Comment(s): Pt resides with spouse. He is independent. He has home oxygen and a nebulizer and a glucometer. Smoking Status: Former smoker Past Alcohol Use History: None Reported, Rare Additional Past Alcohol Use History / Comment(s): Patient was a smoker of 2-3 packs per day for a number of years quit 20 years ago. He denies any alcohol use. He lives at home with his . He also chewed during that time frame. Past Drug Use History: None Reported - Past Family History Father Family Medical History: No Reported History Additional Family Medical History / Comment(s): in his 80's HAD HEART ISSUES Mother Family Medical History: Dementia Additional Family Medical History / Comment(s): Mother in her 80's Sister(s) Family Medical History: CVA/TIA Additional Family Medical History / Comment(s): Patient has 2 sisters. One has history of stroke in 1 has no major medical problems that he is aware of. Patient does not have any brothers. Daughter(s) Family Medical History: No Reported History Son(s) Family Medical History: No Reported History Additional Family Medical History / Comment(s): Patient has 1 son and 2 daughters with no major medical problems. Medications and Allergies Home Medications Medication Instructions Recorded Confirmed Type Atorvastatin [Lipitor] 80 mg PO HS #30 tab 08/18/16 10/25/18 Rx Clopidogrel [Plavix] 75 mg PO DAILY 30 Days tab 08/18/16 10/25/18 Rx Albuterol Sulfate [Proair Hfa] 1 - 2 puff INHALATION RT-Q6H PRN 11/07/17 History Aspirin 81 mg PO DAILY chew 12/11/17 10/25/18 Rx Ipratropium-Albuterol Nebulize 3 ml INHALATION RT-QID #120 10/18/18 10/25/18 Rx [Duoneb 0.5 mg-3 mg/3 ml Soln] ampul.neb predniSONE 10 mg PO DAILY #45 tab 10/18/18 10/25/18 Rx Ibuprofen [Motrin Ib] 200 mg PO BID PRN 10/25/18 10/25/18 History glipiZIDE [Glucotrol] 10 mg PO DAILY 10/25/18 10/25/18 History Allergies Allergy/AdvReac Type Severity Reaction Status Date / Time Penicillins Allergy Anaphylaxis Verified 10/25/18 14:21 Physical Exam Vitals: Vital Signs Temp Pulse Pulse Resp BP BP Pulse Ox 10/26/18 11:08 81 10/26/18 11:00 72 20 103/57 97 10/26/18 10:52 77 10/26/18 10:30 99 18 117/68 91 L 10/26/18 10:00 102 H 20 99/53 95 10/26/18 09:30 89 10 L 104/75 96 10/26/18 09:00 88 20 105/43 97 10/26/18 08:30 93 12 93/51 94 L 10/26/18 08:00 97.5 F L 101 H 20 98/73 94 L 10/26/18 07:30 137 H 20 105/56 93 L 10/26/18 07:09 90 10/26/18 07:00 89 17 107/58 95 10/26/18 06:59 88 10/26/18 06:30 87 24 106/59 95 10/26/18 06:00 95 21 115/68 96 10/26/18 05:30 96 23 111/40 97 10/26/18 05:00 90 16 101/64 98 10/26/18 04:30 80 16 113/84 93 L 10/26/18 04:00 97.6 F 96 11 L 106/64 95 10/26/18 03:30 84 20 99/71 95 10/26/18 03:00 84 20 104/68 95 10/26/18 02:30 80 16 99/61 97 10/26/18 02:00 83 18 117/80 97 10/26/18 01:30 78 18 111/58 96 10/26/18 01:00 85 14 111/58 96 10/26/18 00:30 90 11 L 111/76 93 L 10/26/18 00:00 97.7 F 84 17 96/55 96 10/25/18 23:30 87 18 118/58 96 10/25/18 23:00 95 21 96/57 90 L 10/25/18 22:30 77 22 102/56 95 10/25/18 22:00 82 22 94/58 97 10/25/18 21:30 93 16 111/55 95 10/25/18 21:00 101 H 21 111/64 97 10/25/18 20:30 84 15 107/66 96 10/25/18 20:00 97.6 F 86 10 L 111/77 98 10/25/18 19:33 96 10/25/18 19:00 96 17 112/68 96 10/25/18 18:45 106 H 15 112/68 97 10/25/18 18:30 100 14 93/64 97 10/25/18 18:15 97.9 F 100 19 106/56 97 10/25/18 17:00 176 H 95/69 97 10/25/18 16:54 97.9 F 16 106/56 97 10/25/18 16:30 172 H 101/85 95 10/25/18 16:00 168 H 107/76 96 10/25/18 15:31 168 H 18 106/78 97 10/25/18 15:30 170 H 118/65 96 10/25/18 15:00 168 H 109/85 10/25/18 14:39 165 H 10/25/18 14:30 174 H 118/91 96 10/25/18 14:15 97 10/25/18 14:12 98.3 F 164 H 20 118/91 96 Intake and Output 10/25/18 10/26/18 10/26/18 22:59 06:59 14:59 Intake Total 257.917 400 394.167 Output Total 220 545 525 Balance 37.917 -145 -130.833 Intake: IV 190 400 250 0.9 KVO 140 Sodium Chloride 0.9% 1, 50 400 250 000 ml @ 50 mls/hr IV . Q20H JOE Rx#:[id number] Intake, IV Titration 67.917 144.167 Amount Diltiazem 125 mg In 67.917 Sodium Chloride 0.9% 100 ml @ 5 MG/HR 5 mls/hr IV .Q24H JOE Rx#:[id number] Heparin Sod,Pork in 0.45% 144.167 NaCl 25,000 unit In 0.45 % NaCl 1 250ml.bag @ 8.11 UNITS/KG/HR 10 mls/hr IV .Q24H JOE Rx#:[id number] Output: Urine 220 545 525 Other: Voiding Method Urinal Urinal Urinal Weight 126.6 kg General Appearance no diaphoresis, no respiratory distress, speech not interrupted by breaths, no dyspnea, no pallor, not cachectic, well nourished, appears well, obesity and 2 L nasal cannula HEENT no pursed lip breathing, no jugular venous distention, no mucous membrane cyanosis, no perioral cyanosis, mallampati classification: class 1, Mallampati Classification: Class 4 Chest the patient has a bit of chest addition to diminished breath sound bilaterally along with prolongation of the expiratory phase of breathing and diffuse expiratory wheezes throughout the lung his bilaterally. Heart no right ventricular heave, no distant heart sounds, no s3 gallop, and the patient is irregular rate and rhythm. This is consistent with atrial fibrillation. GI bowel sounds: Bowel sounds present.Abdominal exam revealed normal bowel sounds. The abdomen was soft, non-tender, and without masses, organomegaly, or appreciable enlargement of the abdominal aorta. Extremities no cyanosis, no clubbing, edema, Neurologic no decreased mental status, no somnolence, no confusion Examination of the skin revealed no evidence of significant rashes, suspicious appearing nevi or other concerning lesions. Results - Laboratory Findings CBC and BMP: 10/26/18 06:20 10/26/18 06:20 PT/INR, D-dimer PT 11.1 sec (9.0-12.0) 10/25/18 14:32 INR 1.0 (<1.2) 10/25/18 14:32 Abnormal lab findings: Abnormal Labs 10/25/18 10/25/18 10/25/18 14:32 14:32 18:10 Plt Count Neutrophils # 8.0 H Lymphocytes # 0.6 L APTT Potassium 5.6 H Chloride BUN 26 H Glucose 297 H POC Glucose (mg/dL) 199 H Calcium Magnesium Total Bilirubin 1.9 H Troponin I Total Protein 6.0 L 10/25/18 10/25/18 10/25/18 20:01 21:52 21:52 Plt Count Neutrophils # Lymphocytes # APTT 50.8 H Potassium Chloride 109 H BUN 22 H Glucose 206 H POC Glucose (mg/dL) 180 H Calcium 8.2 L Magnesium Total Bilirubin Troponin I Total Protein 10/25/18 10/26/18 10/26/18 23:13 02:37 06:20 Plt Count 146 L Neutrophils # Lymphocytes # 0.8 L APTT Potassium Chloride BUN Glucose POC Glucose (mg/dL) Calcium Magnesium Total Bilirubin Troponin I 0.045 H* 0.040 H* Total Protein 10/26/18 10/26/18 10/26/18 06:20 06:20 06:56 Plt Count Neutrophils # Lymphocytes # APTT 39.8 H Potassium 5.2 H Chloride 108 H BUN Glucose 209 H POC Glucose (mg/dL) 201 H Calcium Magnesium 2.4 H Total Bilirubin Troponin I Total Protein 10/26/18 12:03 Plt Count Neutrophils # Lymphocytes # APTT Potassium Chloride BUN Glucose POC Glucose (mg/dL) 181 H Calcium Magnesium Total Bilirubin Troponin I Total Protein - Diagnostic Findings Chest x-ray: image reviewed Assessment and Plan Plan: Assessment 1 atrial fibrillation/flutter with rapid ventricular response. The patient is under better control on the current rhythm is atrial fibrillation. Echocardiogram is pending for now. His A. fib/RVR was quite symptomatic and the patient has improved with improved rate control for now. He is also on IV heparin. There is a limited troponin leak and cardiology is also on the case. 2 chronic obstructive lung disease severe COPD with an FEV1 of 28% of predicted. 3 obstructive sleep apnea syndrome The patient did do a home study and was positive for obstructive sleep apnea and he had an apnea index of 17 currently is is not utilizing CPAP therapy has been off treatment. 4 obesity 5 history of paroxysmal atrial fibrillation 6 mixed hyperlipidemia 7 coronary arteriosclerosis, with previous coronary intervention and stenting, please refer to the most recent cardiac catheterizations was performed last year and the patient patent coronaries and stents 8 hypertension 9 degenerative arthritis 10 chronic mild elevation of the left hemidiaphragm 11 abdominal aortic aneurysm, eating monitored by vascular surgery and based on the recent evaluation the size of this aneurysm has increased in size Plan Continue the DuoNeb nebulized treatments around the clock. Agree on IV Solu Medrol for another 24 hours and the patient can go back to his prednisone burst taper. Discontinue the Cardizem drip and put the patient on oral Cardizem 60 mg by mouth 3 times a day. This continued IV heparin and start the patient on Xarelto 20 mg at bedtime. The patient will need to go back on his CPAP therapy can be dealt with on an outpatient basis. Monitor the blood sugar. Echocardiogram. Cardiology to follow-up on troponin leak. Keep the patient in the intensive care unit for another 24 hours..
[2018-10-26] MEDS: HEPARIN SOD,PORK IN 0.45% NACL 25,000 UNIT in 0.45% NACL 1 250ML.BAG IV SCH (14:03)
[2018-10-26] MEDS: DILTIAZEM 125 MG in SODIUM CHLORIDE 0.9% 100 ML IV SCH (16:00)
[2018-10-26 16:53] LABS: Glucose,Whole Blood 221 mg/dL (75-99)
[2018-10-26] MEDS: RIVAROXABAN 20 MG TAB PO SCH (17:09)
[2018-10-26 21:32] LABS: Glucose,Whole Blood 192 mg/dL (75-99)
[2018-10-26] MEDS: ATORVASTATIN 80 MG TAB PO SCH (21:37)
[2018-10-27 05:35] LABS: Basophils % (A) 0 %; Eosinophils % (A) 0 %; HCT 45.3 % (39.0-53.0); HGB 14.5 gm/dL (13.0-17.5); Lymphocytes # (A) 0.4 k/uL (1.0-4.8); Lymphocytes % (A) 4 %; MCH 32.1 pg (25.0-35.0); MCHC 31.9 g/dL (31.0-37.0); MCV 100.4 fL (80.0-100.0); Macrocytosis Slight; Mean Platelet Volume 7.6; Monocytes # (A) 0.3 k/uL (0-1.0); Monocytes % (A) 2 %; Neutrophils # (A) 10.2 k/uL (1.3-7.7); Neutrophils % (A) 94 %; Platelet Count 130 k/uL (150-450); RBC 4.51 m/uL (4.30-5.90); RDW 13.7 % (11.5-15.5); WBC 10.9 k/uL (3.8-10.6)
[2018-10-27 05:48] LABS: Anion Gap 4 mmol/L; Blood Urea Nitrogen 18 mg/dL (9-20); Calcium 8.6 mg/dL (8.4-10.2); Carbon Dioxide 24 mmol/L (22-30); Chloride 108 mmol/L (98-107); Glucose 179 mg/dL (74-99); Magnesium 2.2 mg/dL (1.6-2.3); Phosphorus 3.6 mg/dL (2.5-4.5); Potassium 5.2 mmol/L (3.5-5.1); Sodium 136 mmol/L (137-145)
[2018-10-27 06:49] LABS: Glucose,Whole Blood 183 mg/dL (75-99)
[2018-10-27] MEDS: PANTOPRAZOLE 40 MG TABLET PO SCH (07:26)
[2018-10-27] MEDS: INSULIN ASPART (NovoLOG) 100 UNIT/ML VIAL SQ SCH ×4 (07:26→21:14)
[2018-10-27] MEDS: IPRATROPIUM-ALBUTEROL 3 ML NEB INHALATION SCH ×4 (08:23→20:10)
[2018-10-27] MEDS: DILTIAZEM ORAL 30 MG TAB PO SCH ×3 (09:02→21:14)
[2018-10-27] MEDS: glipiZIDE 10 MG TAB PO SCH (09:02)
[2018-10-27] MEDS: ASPIRIN 81 MG PO SCH (09:03)
[2018-10-27] MEDS: methylPREDNISolone SOD SUCCI 40 MG/ML 1 ML VIAL IV SCH (09:08)
--- NOTE | 2018-10-27 11:22 | P.PN ---
Subjective Progress Note Date: 10/27/18 Principal diagnosis: Atrial fibrillation with RVR. This 68-year-old male patient presented emergency department yesterday with a flutter with a hypervascular response. This made this patient very much shortness of breath. The patient was in the hospital approximately 2 weeks ago for an acute COPD exacerbation. The patient was treated appropriately and the patient was discharged home. While at home and as he was completing a prednisone burst taper, he felt palpitations and rapid heartbeat. Subsequently was found to be in a flutter with 2-1 conduction. The patient came into the ED in the patient was started on a Cardizem drip for rate control. Overnight his heart rate slowed down. Currently is in atrial fibrillation and the rate is under much better control. Cardizem is still running at 5 mg an hour and the patient will be transitioned to oral Cardizem 610 mg 3 times a day. The patient is also on IV heparin. This will be discontinued and the patient will be transitioned to Xarelto. No chest pain. There was some limited troponin leak and cardio is on the case. No angina. No hemoptysis. No pleurisy. No syncope. No change in mental status. Chest x-ray shows chronic infiltration of the left upper lobe not changed since 2018. Noted the patient also has history of obstructive sleep apnea. Hasn't been able to tolerate CPAP therapy in the past and currently is not taking any CPAP treatment. He is a chronic smoker. Patient was reevaluated today on 10/27/2018. Patient is feeling better today, breathing a lot easier, his atrial fibrillation and RVR seems to be better controlled. Patient is relatively asymptomatic, no cough no wheezing no shortness of breath, he was seen by cardiology today, switched to oral Cardizem , the dose has been increased, and the plan is to transfer the patient to a monitor bed on selective today. Of course the patient has many other medical problems including COPD, chronic hypoxic respiratory failure, obstructive sleep apnea, and these are being addressed. CBC was reviewed electrolytes were reviewed renal profile was reviewed. They all seem to be relatively unremarkable. Objective - Vital Signs Vital signs: Vital Signs Temp 97.4 F L 10/27/18 08:00 Pulse 98 10/27/18 08:38 Resp 18 10/27/18 08:00 BP 118/74 10/27/18 08:00 Pulse Ox 95 10/27/18 08:00 Intake & Output 10/26/18 10/27/18 10/27/18 18:59 06:59 18:59 Intake Total 934.793 600 100 Output Total 775 720 0 Balance 159.793 -120 100 Weight 130.1 kg Intake: IV 600 600 100 Sodium Chloride 0.9% 1, 600 600 100 000 ml @ 50 mls/hr IV . Q20H JOE Rx#:[id number] Intake, IV Titration 334.793 Amount Diltiazem 125 mg In 60.500 Sodium Chloride 0.9% 100 ml @ 5 MG/HR 5 mls/hr IV .Q24H JOE Rx#:[id number] Heparin Sod,Pork in 0.45% 274.293 NaCl 25,000 unit In 0.45 % NaCl 1 250ml.bag @ 8.11 UNITS/KG/HR 10 mls/hr IV .Q24H JOE Rx#:[id number] Output: Urine 775 720 0 Other: Voiding Method Urinal Urinal # Voids 1 # Bowel Movements 1 - Exam Physical Exam: Revealed a 68-year-old white male in no distress. On 2 L nasal cannula. Head: Atraumatic, normocephalic. HEENT:[Neck is supple.] [No neck masses.] [No thyromegaly.] [No JVD.] Chest: [Diminished breath sound bilaterally, no crackles or rhonchi or wheezes.. ] Cardiac Exam: [Irregular irregular rhythm, Normal S1 and S2, no S3 gallop, no murmur.] Abdomen: [Obese, Soft, nontender, no megaly, no rebound, no guarding, normal bowel sounds.] Extremities: [No clubbing, no edema, no cyanosis.] Neurological Exam: [No focal neurologic deficit.] Alert oriented 3. Psychiatric: Normal mood affect and mental status examination. [place] skeletal normal range of motion, normal muscle tone. Lymphatics: No lymphadenopathy. Skin: No rashes. - Labs CBC & Chem 7: 10/27/18 04:30 10/27/18 04:30 Labs: Abnormal Lab Results - Last 24 Hours (Table) 10/26/18 10/26/18 10/26/18 Range/Units 12:03 12:49 16:51 WBC (3.8-10.6) k/uL MCV (80.0-100.0) fL Plt Count (150-450) k/uL Neutrophils # (1.3-7.7) k/uL Lymphocytes # (1.0-4.8) k/uL APTT 82.2 H (22.0-30.0) sec Sodium (137-145) mmol/L Potassium (3.5-5.1) mmol/L Chloride (98-107) mmol/L Glucose (74-99) mg/dL POC Glucose (mg/dL) 181 H 221 H (75-99) mg/dL 10/26/18 10/27/18 10/27/18 Range/Units 21:31 04:30 04:30 WBC 10.9 H (3.8-10.6) k/uL MCV 100.4 H (80.0-100.0) fL Plt Count 130 L (150-450) k/uL Neutrophils # 10.2 H (1.3-7.7) k/uL Lymphocytes # 0.4 L (1.0-4.8) k/uL APTT (22.0-30.0) sec Sodium 136 L (137-145) mmol/L Potassium 5.2 H (3.5-5.1) mmol/L Chloride 108 H (98-107) mmol/L Glucose 179 H (74-99) mg/dL POC Glucose (mg/dL) 192 H (75-99) mg/dL 10/27/18 Range/Units 06:48 WBC (3.8-10.6) k/uL MCV (80.0-100.0) fL Plt Count (150-450) k/uL Neutrophils # (1.3-7.7) k/uL Lymphocytes # (1.0-4.8) k/uL APTT (22.0-30.0) sec Sodium (137-145) mmol/L Potassium (3.5-5.1) mmol/L Chloride (98-107) mmol/L Glucose (74-99) mg/dL POC Glucose (mg/dL) 183 H (75-99) mg/dL Assessment and Plan Assessment: Impression: 1 atrial fibrillation/flutter with RVR. Presently rate seems to be very well controlled, and the patient is on oral Cardizem, he is also on IV heparin. 2 severe underlying COPD, FEV1 is 28%, patient is on bronchodilators, normally sees Dr. Berumen on follow-up. 3 obstructive sleep apnea syndrome, not compliant with CPAP, poor tolerance to CPAP. 4 history of paroxysmal atrial fibrillation 5 benign essential hypertension 6 chronic left hemidiaphragm paralysis 7 history of abdominal aortic aneurysm being monitored by vascular surgery on outpatient basis. 8 morbid obesity. Recommendation: Continue bronchodilators, continue oral Cardizem, continue IV Solu-Medrol, can switch him today to prednisone, patient is presently off Cardizem drip, patient is now on heparin which will be switched to Xarelto, transfer the patient out of the ICU to a monitor bed on selective, we will continue to follow. Time with Patient: Less than 30
--- NOTE | 2018-10-27 11:49 | P.PN ---
Subjective Progress Note Date: 10/27/18 This is a 68-year-old male patient of Dr. Holland with a previous medical history significant for paroxysmal atrial fibrillation, hypertension and hypertensive cardiovascular disease, hyperlipidemia, obesity with obstructive sleep apnea, CAD with ST elevation [place] post-PCI of the RCA back in August 2016, advanced COPD with FEV1 of 20% of predicted, diabetes mellitus type 2. Patient was recently hospitalized at [facility] for COPD exacerbation October 16 through the . patient states he is feeling a lot better right now. He states that yesterday around 2 in the afternoon he was sitting watching a basketball game and started feeling his heart beat fast and when slow down. It was not near a time when he had a nebulizer treatment. His face eventually started feeling numb and he thought he should come in to the hospital because he was afraid he was having a stroke. Patient presented to [facility] emergency center for evaluation. EKG was atrial flutter in the 160s. Initial blood pressure 118/91 with repeat at 106/78 Chest x-ray showed no acute abnormality. White count was essentially normal. Sodium 138, potassium 5.6, chloride 107, CO2 23, BUN 26 creatinine 1.13. Blood sugar 297. Patient was given adenosine 6 mg followed by 12 mg and subsequently started on Cardizem drip and heparin drip and admitted to the intensive care unit and cardiology consult requested as well as consult with Dr. Berumen. 3: Patient remains in intensive care unit. His heart rate is running in the 90s but has jumped up to 125. He has been afebrile, pulse ox is 95% on 2 L, blood pressure 118/74. He states he slept well and his breathing status is stable. He had a bowel movement this morning. Dr. Lock has transition IV Solu-Medrol to oral prednisone. Patient will be transferred out of the intensive care unit today. Anticipate possible discharge by tomorrow. Review of Systems All systems: negative Constitutional: Denies chills, Denies fever, Denies poor appetite, Denies weakness, Denies weight loss Eyes: denies blurred vision, denies pain Ears, nose, mouth and throat: Denies dysphagia, Denies headache, Denies sore throat, Denies vertigo Cardiovascular: Reports dyspnea on exertion, denies irregular heart beadenieslpitations, Denies chest pain, Denies edema, Denies lightheadedness, Denies shortness of breath, Denies syncope Respiratory: denies dyspnea, denies home oxygen, denies wheezing, Denies cough, Denies cough with sputum, Denies excessive sputum, Denies hemoptysis, Denies respiratory infections Gastrointestinal: Reports loss of appetite, Denies abdominal pain, Denies diarrhea, Denies nausea, Denies vomiting Genitourinary: Denies dysuria Musculoskeletal: Denies arm numbness/tingling, Denies frequent falls, Denies gait dysfunction, Denies leg numbness/tingling, Denies myalgias Integumentary: Denies pruritus, Denies rash, Denies wounds Neurological: Denies aphasia, Denies change in mentation, Denies numbness, Denies vertigo, Denies weakness Psychiatric: Denies anxiety, Denies depression Endocrine: Denies fatigue, Denies weight change Objective - Vital Signs Vital signs: Vital Signs Temp 97.4 F L 10/27/18 08:00 Pulse 98 10/27/18 08:38 Resp 18 10/27/18 08:00 BP 118/74 10/27/18 08:00 Pulse Ox 95 10/27/18 08:00 Intake & Output 10/26/18 10/27/18 10/27/18 18:59 06:59 18:59 Intake Total 934.793 600 100 Output Total 775 720 0 Balance 159.793 -120 100 Weight 130.1 kg Intake: IV 600 600 100 Sodium Chloride 0.9% 1, 600 600 100 000 ml @ 50 mls/hr IV . Q20H JOE Rx#:[id number] Intake, IV Titration 334.793 Amount Diltiazem 125 mg In 60.500 Sodium Chloride 0.9% 100 ml @ 5 MG/HR 5 mls/hr IV .Q24H JOE Rx#:[id number] Heparin Sod,Pork in 0.45% 274.293 NaCl 25,000 unit In 0.45 % NaCl 1 250ml.bag @ 8.11 UNITS/KG/HR 10 mls/hr IV .Q24H JOE Rx#:[id number] Output: Urine 775 720 0 Other: Voiding Method Urinal Urinal # Voids 1 # Bowel Movements 1 - Exam General appearance: mild distress, obese - EENT Eyes: anicteric sclerae, EOMI, PERRLA, no ptosis, no scleral icterus, normal appearance ENT: hearing grossly normal, NA/AT, normal oropharynx, no thrush Ears: bilateral: normal - Neck Neck: no lymphadenopathy, normal ROM, no rigidity, no stridor, no thyromegaly Carotids: bilateral: upstroke normal Thyroid: bilateral: normal size - Respiratory Respiratory: bilateral: diminished, negative: dullness, rales, rhonchi, wheezing - Cardiovascular Rhythm: irregular Heart sounds: normal: S1, S2 Abnormal Heart Sounds: systolic murmur - Gastrointestinal General gastrointestinal: normal bowel sounds, soft, no splenomegaly, no tenderness, no umbilical hernia - Integumentary Integumentary: normal, normal turgor - Neurologic Neurologic: CNII-XII intact - Musculoskeletal Musculoskeletal: strength equal bilaterally - Psychiatric Psychiatric: A&O x's 3, appropriate affect, intact judgment & insight - Labs CBC & Chem 7: 10/27/18 04:30 10/27/18 04:30 Labs: Abnormal Lab Results - Last 24 Hours (Table) 10/26/18 10/26/18 10/26/18 Range/Units 12:03 12:49 16:51 WBC (3.8-10.6) k/uL MCV (80.0-100.0) fL Plt Count (150-450) k/uL Neutrophils # (1.3-7.7) k/uL Lymphocytes # (1.0-4.8) k/uL APTT 82.2 H (22.0-30.0) sec Sodium (137-145) mmol/L Potassium (3.5-5.1) mmol/L Chloride (98-107) mmol/L Glucose (74-99) mg/dL POC Glucose (mg/dL) 181 H 221 H (75-99) mg/dL 10/26/18 10/27/18 10/27/18 Range/Units 21:31 04:30 04:30 WBC 10.9 H (3.8-10.6) k/uL MCV 100.4 H (80.0-100.0) fL Plt Count 130 L (150-450) k/uL Neutrophils # 10.2 H (1.3-7.7) k/uL Lymphocytes # 0.4 L (1.0-4.8) k/uL APTT (22.0-30.0) sec Sodium 136 L (137-145) mmol/L Potassium 5.2 H (3.5-5.1) mmol/L Chloride 108 H (98-107) mmol/L Glucose 179 H (74-99) mg/dL POC Glucose (mg/dL) 192 H (75-99) mg/dL 10/27/18 Range/Units 06:48 WBC (3.8-10.6) k/uL MCV (80.0-100.0) fL Plt Count (150-450) k/uL Neutrophils # (1.3-7.7) k/uL Lymphocytes # (1.0-4.8) k/uL APTT (22.0-30.0) sec Sodium (137-145) mmol/L Potassium (3.5-5.1) mmol/L Chloride (98-107) mmol/L Glucose (74-99) mg/dL POC Glucose (mg/dL) 183 H (75-99) mg/dL Assessment and Plan Plan: 1. Acute onset atrial flutter with RVR. Patient has status post adenosine and Cardizem drip will be transitioned to oral Cardizem 60 mg 3 times daily and Xarelto has been started as well. Consult with cardiology appreciated. 2. Acute COPD exacerbation with advanced COPD. Continue DuoNeb treatments 4 times daily, Solu-Medrol transitioned to oral prednisone. Pulmonary medicine consult appreciated. 3. Obstructive sleep apnea, noncompliant with CPAP. Patient states that CPAP was not been functioning correctly although they have had it checked multiple times. Patient is not currently using. 4. Coronary artery disease status post multiple angioplasty and stent placement. Continue aspirin 81 mg daily, atorvastatin 80 mg at bedtime and Plavix 75 mg daily. 5. Paroxysmal atrial fibrillation. Cardizem and Xarelto. Cardiology consult appreciated. 6. Diabetes mellitus type 2. Continue Glucotrol 10 mg at breakfast and NovoLog scale before meals and at bedtime. 7. Hyperlipidemia. Continue atorvastatin. 8. Chronic hypoxic respiratory failure 9. DVT prophylaxis. Patient is on heparin drip. 10. GI prophylaxis and gastroesophageal reflux disease. Continue Protonix. Discharge plan: Return home most likely tomorrow Impression and plan of care have been directed as dictated by the signing physician. Joy Baxter nurse practitioner acting as scribe for signing physician.
[2018-10-27 11:59] LABS: Glucose,Whole Blood 167 mg/dL (75-99)
--- NOTE | 2018-10-27 12:02 | CDI ---
Documentation Clarification Form Date: 10/27/2018 11:55:34 AM From: Chica JOSUE Bravo, CCDS Admit Date: 10/25/2018 4:25:00 PM Patient Name: Laron Junior V Visit Number: [id number] Discharge Date: ATTENTION: The Clinical Documentation Specialists (CDI) and [facility] Coding Staff appreciate your assistance in clarifying documentation. Please respond to the clarification below the line at the bottom and electronically sign. The CDI & [facility] Coding staff will review the response and follow-up if needed. Please note: Queries are made part of the Legal Health Record. If you have any questions, please contact the author of this message via ITS. Dr. Josias Celaya: Atrial Flutter is documented in the ED note, the History & Physicial & also the Cardiology Consult. Per the documentation, the patient converted to atrial fibrillation with controlled ventricular response. History/Risk factors: Paroxysmal Atrial Fibrillation, CAD w/stent, Previous NV, Hypertension, Mixed Hyperlipidemia, LION, Chronic Hypoxic Respiratiory Failure on home O2, Morbid Obesity & current smoker. Clinical Indicators: Presented with heart palpitations. Recently hospitalized with COPD exacerbation. EKG/telemetry: R 168 sinus tachycardia. Treatment: IV Cardizem drip, IV Heparin drip, IV fluid bolus, IV Adenosine, O2 2Lnc. In your professional opinion, in order to capture the severity of condition; can you please clarify the type of Atrial Flutter if known? Typical/Type I Atypical/Type II Other, please specify: Unable to determine (Last Revision: November 2017) MTDD
[2018-10-27 13:10] LABS: Glucose,Whole Blood 176 mg/dL (75-99)
--- NOTE | 2018-10-27 14:02 | P.PN ---
Subjective Progress Note Date: 10/27/18 This is a 68-year-old gentleman with history of COPD who was admitted to the hospital with mainly complaints of palpitations. He was found to be in atrial flutter with 2 to one conduction and rapid ventricular response. Patient was started on IV Cardizem. Patient converted to atrial fibrillation with controlled heart rate. Patient has typical atrial flutter. Patient's heart rate is fairly controlled with Cardizem 60 mg by mouth 3 times a day. I'm going to increase the dose to 90 mg by mouth 3 times a day. Patient is also start on anticoagulation therapy. His Plavix is held. Patient is overall doing well. He could be transferred to telemetry unit. Objective - Vital Signs Vital signs: Vital Signs Temp 97.6 F 10/27/18 12:00 Pulse 90 10/27/18 12:00 Resp 15 10/27/18 12:00 BP 111/54 10/27/18 12:00 Pulse Ox 92 L 10/27/18 12:00 Intake & Output 10/26/18 10/27/18 10/27/18 18:59 06:59 18:59 Intake Total 934.793 600 100 Output Total 775 720 100 Balance 159.793 -120 0 Weight 130.1 kg Intake: IV 600 600 100 Sodium Chloride 0.9% 1, 600 600 100 000 ml @ 50 mls/hr IV . Q20H JOE Rx#:[id number] Intake, IV Titration 334.793 Amount Diltiazem 125 mg In 60.500 Sodium Chloride 0.9% 100 ml @ 5 MG/HR 5 mls/hr IV .Q24H JOE Rx#:[id number] Heparin Sod,Pork in 0.45% 274.293 NaCl 25,000 unit In 0.45 % NaCl 1 250ml.bag @ 8.11 UNITS/KG/HR 10 mls/hr IV .Q24H JOE Rx#:[id number] Output: Urine 775 720 100 Other: Voiding Method Urinal Urinal # Voids 1 # Bowel Movements 1 - Exam GENERAL EXAM: Patient is alert and oriented and doesn't appear to be in any acute distress HEENT: Normocephalic. Normal reaction of pupils, equal size, normal range of extraocular motion. No erythema or exudates in the throat. NECK: No masses, no nuchal rigidity. CHEST: No chest wall deformity. LUNGS: Diminished breath sounds. HEART: S1 and S2 normal. Irregular heart sounds ABDOMEN: No hepatosplenomegaly, normal bowel sounds, no guarding or rigidity. SKIN: No rashes CENTRAL NERVOUS SYSTEM: No focal deficits. EXTREMITIES: No cyanosis, clubbing or edema. - Labs CBC & Chem 7: 10/27/18 04:30 10/27/18 04:30 Labs: Abnormal Lab Results - Last 24 Hours (Table) 10/26/18 10/26/18 10/27/18 Range/Units 16:51 21:31 04:30 WBC 10.9 H (3.8-10.6) k/uL MCV 100.4 H (80.0-100.0) fL Plt Count 130 L (150-450) k/uL Neutrophils # 10.2 H (1.3-7.7) k/uL Lymphocytes # 0.4 L (1.0-4.8) k/uL Sodium (137-145) mmol/L Potassium (3.5-5.1) mmol/L Chloride (98-107) mmol/L Glucose (74-99) mg/dL POC Glucose (mg/dL) 221 H 192 H (75-99) mg/dL 10/27/18 10/27/18 10/27/18 Range/Units 04:30 06:48 11:58 WBC (3.8-10.6) k/uL MCV (80.0-100.0) fL Plt Count (150-450) k/uL Neutrophils # (1.3-7.7) k/uL Lymphocytes # (1.0-4.8) k/uL Sodium 136 L (137-145) mmol/L Potassium 5.2 H (3.5-5.1) mmol/L Chloride 108 H (98-107) mmol/L Glucose 179 H (74-99) mg/dL POC Glucose (mg/dL) 183 H 167 H (75-99) mg/dL 10/27/18 Range/Units 13:09 WBC (3.8-10.6) k/uL MCV (80.0-100.0) fL Plt Count (150-450) k/uL Neutrophils # (1.3-7.7) k/uL Lymphocytes # (1.0-4.8) k/uL Sodium (137-145) mmol/L Potassium (3.5-5.1) mmol/L Chloride (98-107) mmol/L Glucose (74-99) mg/dL POC Glucose (mg/dL) 176 H (75-99) mg/dL Assessment and Plan (1) Atrial flutter with rapid ventricular response Current Visit: Yes Status: Acute Code(s): I48.92 - UNSPECIFIED ATRIAL FLUTTER SNOMED Code(s): 6316319 (2) HTN (hypertension) Current Visit: No Status: Acute Code(s): I10 - ESSENTIAL (PRIMARY) HYPERTENSION SNOMED Code(s): 24561040 (3) Hyperlipemia Current Visit: No Status: Acute Code(s): E78.5 - HYPERLIPIDEMIA, UNSPECIFIED SNOMED Code(s): 85575273 (4) COPD (chronic obstructive pulmonary disease) Current Visit: Yes Status: Acute Code(s): J44.9 - CHRONIC OBSTRUCTIVE PULMONARY DISEASE, UNSPECIFIED SNOMED Code(s): 19770192 (5) Typical atrial flutter Current Visit: Yes Status: Acute Code(s): I48.3 - TYPICAL ATRIAL FLUTTER SNOMED Code(s): 673548749 Plan: Patient is admitted with typical atrial flutter. Subsequently converted into atrial fibrillation. Rate is fairly controlled. I'm going to increase the dose of the Cardizem. May be transferred to telemetry unit and possible discharge within next 24 hours.
[2018-10-27 16:43] LABS: Glucose,Whole Blood 141 mg/dL (75-99)
[2018-10-27] MEDS: RIVAROXABAN 20 MG TAB PO SCH (17:59)
[2018-10-27 20:45] LABS: Glucose,Whole Blood 208 mg/dL (75-99)
[2018-10-27] MEDS: ATORVASTATIN 80 MG TAB PO SCH (21:14)
[2018-10-28 05:35] LABS: Basophils % (A) 0 %; Eosinophils % (A) 0 %; HCT 46.3 % (39.0-53.0); HGB 14.7 gm/dL (13.0-17.5); Lymphocytes # (A) 0.6 k/uL (1.0-4.8); Lymphocytes % (A) 5 %; MCHC 31.8 g/dL (31.0-37.0); MCV 100.5 fL (80.0-100.0); Macrocytosis Slight; Monocytes # (A) 0.4 k/uL (0-1.0); Monocytes % (A) 3 %; Neutrophils # (A) 11.5 k/uL (1.3-7.7); Neutrophils % (A) 91 %; Platelet Count 152 k/uL (150-450); WBC 12.7 k/uL (3.8-10.6)
[2018-10-28 05:46] LABS: Anion Gap 5 mmol/L; Blood Urea Nitrogen 20 mg/dL (9-20); Calcium 8.9 mg/dL (8.4-10.2); Carbon Dioxide 25 mmol/L (22-30); Chloride 108 mmol/L (98-107); Glucose 163 mg/dL (74-99); Magnesium 2.2 mg/dL (1.6-2.3); Potassium 4.7 mmol/L (3.5-5.1); Sodium 138 mmol/L (137-145)
[2018-10-28 06:52] LABS: Glucose,Whole Blood 192 mg/dL (75-99)
[2018-10-28] MEDS: glipiZIDE 10 MG TAB PO SCH (07:07)
[2018-10-28] MEDS: INSULIN ASPART (NovoLOG) 100 UNIT/ML VIAL SQ SCH (07:07)
[2018-10-28] MEDS: ASPIRIN 81 MG PO SCH (07:50)
[2018-10-28] MEDS: PANTOPRAZOLE 40 MG TABLET PO SCH (07:51)
[2018-10-28] MEDS: DILTIAZEM ORAL 30 MG TAB PO SCH (07:51)
[2018-10-28] MEDS: IPRATROPIUM-ALBUTEROL 3 ML NEB INHALATION SCH (08:50)
[2018-10-28] MEDS ORDERED: predniSONE 20 MG TAB PO SCH (09:00)
[2018-10-28 10:18] VITALS: RESP 18
--- NOTE | 2018-10-28 10:56 | P.DS ---
Providers Date of admission: 10/25/18 16:25 Expected date of discharge: 10/28/18 Attending physician: Aneta Hernandez Consults: 10/25/18 16:25 Consult Physician Urgent Consulting Provider: Nicolasa Berumen Consult Reason/Comments: Critical care management Do you want consulting provider notified?: Yes Consult Physician Urgent Consulting Provider: [facility] Consult Reason/Comments: Atrial flutter with rapid ventricular response Do you want consulting provider notified?: Yes [facility]: This is a 68-year-old male patient of Dr. Holland with a previous medical history significant for paroxysmal atrial fibrillation, hypertension and hypertensive cardiovascular disease, hyperlipidemia, obesity with obstructive sleep apnea, CAD with ST elevation [place] post-PCI of the RCA back in August 2016, advanced COPD with FEV1 of 20% of predicted, diabetes mellitus type 2. Patient was recently hospitalized at [facility] for COPD exacerbation October 16 through the . patient states he is feeling a lot better right now. He states that yesterday around 2 in the afternoon he was sitting watching a basketball game and started feeling his heart beat fast and when slow down. It was not near a time when he had a nebulizer treatment. His face eventually started feeling numb and he thought he should come in to the hospital because he was afraid he was having a stroke. Patient presented to [facility] emergency center for evaluation. EKG was atrial flutter in the 160s. Initial blood pressure 118/91 with repeat at 106/78 Chest x-ray showed no acute abnormality. White count was essentially normal. Sodium 138, potassium 5.6, chloride 107, CO2 23, BUN 26 creatinine 1.13. Blood sugar 297. Patient was given adenosine 6 mg followed by 12 mg and subsequently started on Cardizem drip and heparin drip and admitted to the intensive care unit and cardiology consult requested as well as consult with Dr. Berumen. 3/4: Patient remains in intensive care unit. His heart rate is running in the 90s but has jumped up to 125. He has been afebrile, pulse ox is 95% on 2 L, blood pressure 118/74. He states he slept well and his breathing status is stable. He had a bowel movement this morning. Dr. Lock has transition IV Solu-Medrol to oral prednisone. Patient will be transferred out of the intensive care unit today. Anticipate possible discharge by tomorrow. 10/28: Yesterday, cardiology increase Cardizem to 90 mg 3 times daily. He was also started on anticoagulation with Xarelto and Plavix was discontinued. Coverage was checked for eliquis and patient will be discharged on eliquis versus Xarelto. classroom monitor is atrial fibrillation at a controlled rate. Heart rate has been running in 80s, blood pressure 143/75, pulse ox 94% on room air, afebrile. WBC 12.7, creatinine 0.81, blood sugars been running between 163 and 208. Patient states that his breathing has been much improved. He denies any chest pain. He is not having any palpitations at the moment. The patient will be discharged home today in stable condition once cleared by cardiology and pulmonary medicine. Discharge diagnoses: 1. Acute onset atrial flutter with RVR. 2. Acute COPD exacerbation with advanced COPD. 3. Obstructive sleep apnea, noncompliant with CPAP. 4. Coronary artery disease status post multiple angioplasty and stent placement. 5. Paroxysmal atrial fibrillation. 6. Diabetes mellitus type 2. 7. Hyperlipidemia. 8. Chronic hypoxic respiratory failure 9. Gastroesophageal reflux disease. Discharge plan: Return home Impression and plan of care have been directed as dictated by the signing physician. Joy Baxter nurse practitioner acting as scribe for signing physician. Patient Condition at Discharge: Good Plan - Discharge Summary Discharge Rx Participant: No New Discharge Prescriptions: New Diltiazem Oral [Cardizem*] 90 mg PO TID #90 tab Apixaban [Eliquis] 5 mg PO BID #60 tab Diltiazem HCl [Cardizem] 90 mg PO TID #90 tablet Continue Atorvastatin [Lipitor] 80 mg PO HS #30 tab Albuterol Sulfate [Proair Hfa] 1 - 2 puff INHALATION RT-Q6H PRN PRN Reason: Shortness Of Breath Aspirin 81 mg PO DAILY chew Ipratropium-Albuterol Nebulize [Duoneb 0.5 mg-3 mg/3 ml Soln] 3 ml INHALATION RT-QID #120 ampul.neb predniSONE 10 mg PO DAILY #45 tab glipiZIDE [Glucotrol] 10 mg PO DAILY Discontinued Clopidogrel [Plavix] 75 mg PO DAILY 30 Days tab Ibuprofen [Motrin Ib] 200 mg PO BID PRN PRN Reason: Pain Discharge Medication List Atorvastatin [Lipitor] 80 mg PO HS #30 tab 08/18/16 [Rx] Albuterol Sulfate [Proair Hfa] 1 - 2 puff INHALATION RT-Q6H PRN 11/07/17 [ History] Aspirin 81 mg PO DAILY chew 12/11/17 [Rx] Ipratropium-Albuterol Nebulize [Duoneb 0.5 mg-3 mg/3 ml Soln] 3 ml INHALATION RT -QID #120 ampul.neb 10/18/18 [Rx] predniSONE 10 mg PO DAILY #45 tab 10/18/18 [Rx] glipiZIDE [Glucotrol] 10 mg PO DAILY 10/25/18 [History] Apixaban [Eliquis] 5 mg PO BID #60 tab 10/28/18 [Rx] Diltiazem HCl [Cardizem] 90 mg PO TID #90 tablet 10/28/18 [Rx] Diltiazem Oral [Cardizem*] 90 mg PO TID #90 tab 10/28/18 [Rx] Follow up Appointment(s)/Referral(s): January [facility] [Nurse Practitioner] - 11/06/18 2:30 pm () Laron Holland DO [Primary Care Provider] - 1-2 days (Spoke to campus receptionist. Office will call with appointment time) Josias Celaya MD [STAFF PHYSICIAN] - 1 Week (Spoke to campus receptionist. Office will call with appointment time) Patient Instructions/Handouts: Atrial Flutter (DC), Safe Use of Anticoagulants (DC) Activity/Diet/Wound Care/Special Instructions: [facility] copay is $370.74 which is due to the deductible not being met. Pt will get a coupon for a free month at discharge when a script is sent to [facility], other medications if any should be filled at [facility]. Patient will get free samples from [employer] and Dr Holland's offices. Patient also to contact [employer] at [employer] to work with company on getting the medication. Discharge Disposition: HOME SELF-CARE
[2018-10-28 11:31] LABS: Glucose,Whole Blood 72 mg/dL (75-99)
[2018-10-28 12:25] VITALS: BP 101/58; PULSE 80; TEMP 96.4
--- NOTE | 2018-10-28 14:29 | P.PN ---
Subjective Progress Note Date: 10/28/18 This is a 68-year-old gentleman with history of coronary artery disease, diabetes mellitus, dyslipidemia, and also paroxysmal atrial fibrillation and sleep apnea. Patient was recently in the hospital with exacerbation of COPD. He now comes to the hospital with complaints of rapid heartbeat and palpitati ons. He was found to be in atrial flutter with a 2 to one conduction with a rapid heart rate. Patient was started on IV Cardizem. Patient converted to atrial fibrillation with controlled ventricular response. Patient is feeling much better. Denies any chest pain or shortness of breath. Patient is known to have paroxysmal atrial fibrillation. He used to be on xarelto in the past. Patient did not have any side effects and did not have any bleeding episodes. Patient had a cardiac stent placement about 2 years ago. At this point I'm going to discontinue Plavix and put him on combination of aspirin and Xarelto. Patient will also be started on by mouth Cardizem and IV Cardizem will be d iscontinued after the second dose of by mouth Cardizem. IV heparin and also to be discontinued after patient started on Xarelto. Patient could be moved out of the intensive care unit. 10/28/2018 Patient was seen and examined this morning, heart rate appears to be under better control overall. Patient had been on anticoagulation with xarelto, and was on Plavix as well, the Plavix had been discontinued, patient actually has coverage for Eliquis so this was changed to Eliquis the. He continues to be in atrial fibrillation with a controlled ventricular response today. Breathing overall is stable. He is anticipating discharge home today. We'll follow-up with him in the office. Objective - Vital Signs Vital signs: Vital Signs Temp 96.4 F L 10/28/18 12:00 Pulse 80 10/28/18 12:00 Resp 18 10/28/18 12:00 BP 101/58 10/28/18 12:00 Pulse Ox 95 10/28/18 12:00 Intake & Output 10/27/18 10/28/18 10/28/18 18:59 06:59 18:59 Intake Total 100 480 Output Total 100 1100 600 Balance 0 -1100 -120 Weight 127.5 kg Intake: IV 100 Sodium Chloride 0.9% 1, 100 000 ml @ 50 mls/hr IV . Q20H [facility] Rx#:[id number] Oral 480 Output: Urine 100 1100 600 Other: Voiding Method Urinal Urinal Urinal # Voids 1 1 1 # Bowel Movements 1 - Exam GENERAL EXAM: Patient is alert and oriented and doesn't appear to be in any acute distress HEENT: Normocephalic. Normal reaction of pupils, equal size, normal range of extraocular motion. No erythema or exudates in the throat. NECK: No masses, no nuchal rigidity. CHEST: No chest wall deformity. LUNGS: Diminished breath sounds. HEART: S1 and S2 normal. Irregular heart sounds ABDOMEN: No hepatosplenomegaly, normal bowel sounds, no guarding or rigidity. SKIN: No rashes CENTRAL NERVOUS SYSTEM: No focal deficits. EXTREMITIES: No cyanosis, clubbing or edema. - Labs CBC & Chem 7: 10/28/18 04:47 10/28/18 04:47 Labs: Abnormal Lab Results - Last 24 Hours (Table) 10/27/18 10/27/18 10/28/18 Range/Units 16:41 20:43 04:47 WBC 12.7 H (3.8-10.6) k/uL MCV 100.5 H (80.0-100.0) fL Neutrophils # 11.5 H (1.3-7.7) k/uL Lymphocytes # 0.6 L (1.0-4.8) k/uL Chloride (98-107) mmol/L Glucose (74-99) mg/dL POC Glucose (mg/dL) 141 H 208 H (75-99) mg/dL 10/28/18 10/28/18 10/28/18 Range/Units 04:47 06:50 11:22 WBC (3.8-10.6) k/uL MCV (80.0-100.0) fL Neutrophils # (1.3-7.7) k/uL Lymphocytes # (1.0-4.8) k/uL Chloride 108 H (98-107) mmol/L Glucose 163 H (74-99) mg/dL POC Glucose (mg/dL) 192 H 72 L (75-99) mg/dL Assessment and Plan Plan: Assessment and plan 1. Acute onset of typical atrial flutter with RVR. 2. Acute COPD exacerbation with advanced COPD. 3. Obstructive sleep apnea, noncompliant with CPAP. 4. Coronary artery disease status post multiple angioplasty and stent placement. 5. Paroxysmal atrial fibrillation. 6. Diabetes mellitus type 2. 7. Hyperlipidemia. Plan From cardiology's perspective, patient may be able to be discharged home today. He will be discharged on Eliquis 5 mg one tablet by mouth twice a day. Follow- up appointment in the office post discharge. DNP note has been reviewed, I agree with a documented findings and plan of care. Patient was seen and examined.
--- NOTE | 2018-10-28 14:36 | P.PN ---
Subjective Progress Note Date: 10/28/18 Principal diagnosis: A. fib with RVR This 68-year-old male patient presented emergency department yesterday with a flutter with a hypervascular response. This made this patient very much shortness of breath. The patient was in the hospital approximately 2 weeks ago for an acute COPD exacerbation. The patient was treated appropriately and the patient was discharged home. While at home and as he was completing a prednisone burst taper, he felt palpitations and rapid heartbeat. Subsequently was found to be in a flutter with 2-1 conduction. The patient came into the ED in the patient was started on a Cardizem drip for rate control. Overnight his heart rate slowed down. Currently is in atrial fibrillation and the rate is under much better control. Cardizem is still running at 5 mg an hour and the patient will be transitioned to oral Cardizem 610 mg 3 times a day. The patient is also on IV heparin. This will be discontinued and the patient will be transitioned to Xarelto. No chest pain. There was some limited troponin leak and cardio is on the case. No angina. No hemoptysis. No pleurisy. No syncope. No change in mental status. Chest x-ray shows chronic infiltration of the left upper lobe not changed since 2018. Noted the patient also has history of obstructive sleep apnea. Hasn't been able to tolerate CPAP therapy in the past and currently is not taking any CPAP treatment. He is a chronic smoker. Patient was reevaluated today on 10/27/2018. Patient is feeling better today, breathing a lot easier, his atrial fibrillation and RVR seems to be better controlled. Patient is relatively asymptomatic, no cough no wheezing no shortness of breath, he was seen by cardiology today, switched to oral Cardizem , the dose has been increased, and the plan is to transfer the patient to a monitor bed on selective today. Of course the patient has many other medical problems including COPD, chronic hypoxic respiratory failure, obstructive sleep apnea, and these are being addressed. CBC was reviewed electrolytes were reviewed renal profile was reviewed. They all seem to be relatively unremarkable. On 10/28/2018 patient seen in follow-up on foot care unit, he is resting comfortably in bed, in no acute distress, room air pulse ox is 95%. Afebrile, no dynamically stable. Patient has been started on Xarelto for anticoagulation. However upon discharge she will be switched to Eliquis as the cost will be significantly cheaper. No shortness of breath, no chest pain. Patient is tolerating ambulation, lung sounds are clear. No dynamically stable , no complaints of shortness of breath, cough or chest congestion. From pulmonary perspective he stable for discharge home today Objective - Vital Signs Vital signs: Vital Signs Temp 96.4 F L 10/28/18 12:00 Pulse 80 10/28/18 12:00 Resp 18 10/28/18 12:00 BP 101/58 10/28/18 12:00 Pulse Ox 95 10/28/18 12:00 Intake & Output 10/27/18 10/28/18 10/28/18 18:59 06:59 18:59 Intake Total 100 480 Output Total 100 1100 600 Balance 0 -1100 -120 Weight 127.5 kg Intake: IV 100 Sodium Chloride 0.9% 1, 100 000 ml @ 50 mls/hr IV . Q20H JOE Rx#:[id number] Oral 480 Output: Urine 100 1100 600 Other: Voiding Method Urinal Urinal Urinal # Voids 1 1 1 # Bowel Movements 1 - Exam GENERAL EXAM: Alert, oriented 68-year-old white male comfortable in no apparent distress. HEAD: Normocephalic/atraumatic. EYES: Normal reaction of pupils, equal size. Conjunctiva pink, sclera white. NOSE: Clear with pink turbinates. THROAT: No erythema or exudates. NECK: No masses, no JVD, no thyroid enlargement, no adenopathy. CHEST: No chest wall deformity. Symmetrical expansion. LUNGS: Equal air entry with clear breath sounds CVS: Regular rate and rhythm, normal S1 and S2, no gallops, no murmurs, no rubs ABDOMEN: Soft, nontender. No hepatosplenomegaly, normal bowel sounds, no guarding or rigidity. EXTREMITIES: No clubbing, no edema, no cyanosis, 2+ pulses and upper and lower extremities. MUSCULOSKELETAL: Muscle strength and tone normal. SPINE: No scoliosis or deformity SKIN: No rashes CENTRAL NERVOUS SYSTEM: Alert and oriented -3. No focal deficits, tone is normal in all 4 extremities. PSYCHIATRIC: Alert and oriented -3. Appropriate affect. Intact judgment and insight. - Labs CBC & Chem 7: 10/28/18 04:47 10/28/18 04:47 Labs: Abnormal Lab Results - Last 24 Hours (Table) 10/27/18 10/27/18 10/28/18 Range/Units 16:41 20:43 04:47 WBC 12.7 H (3.8-10.6) k/uL MCV 100.5 H (80.0-100.0) fL Neutrophils # 11.5 H (1.3-7.7) k/uL Lymphocytes # 0.6 L (1.0-4.8) k/uL Chloride (98-107) mmol/L Glucose (74-99) mg/dL POC Glucose (mg/dL) 141 H 208 H (75-99) mg/dL 10/28/18 10/28/18 10/28/18 Range/Units 04:47 06:50 11:22 WBC (3.8-10.6) k/uL MCV (80.0-100.0) fL Neutrophils # (1.3-7.7) k/uL Lymphocytes # (1.0-4.8) k/uL Chloride 108 H (98-107) mmol/L Glucose 163 H (74-99) mg/dL POC Glucose (mg/dL) 192 H 72 L (75-99) mg/dL Assessment and Plan Plan: 1 atrial fibrillation/flutter with RVR. Presently rate seems to be very well controlled, and the patient is on oral Cardizem, he is also on IV heparin. 2 severe underlying COPD, FEV1 is 28%, patient is on bronchodilators, normally sees Dr. Berumen on follow-up. 3 obstructive sleep apnea syndrome, not compliant with CPAP, poor tolerance to CPAP. 4 history of paroxysmal atrial fibrillation 5 benign essential hypertension 6 chronic left hemidiaphragm paralysis 7 history of abdominal aortic aneurysm being monitored by vascular surgery on outpatient basis. 8 morbid obesity. Plan: From a pulmonary patient remains stable, he is on oral anticoagulation, his heart rate is better controlled. No shortness of breath, no chest pain, vital signs are stable, patient is cleared for discharge from pulmonary perspective. I'll up with Dr. Berumen in the office in 7-10 days I performed a history & physical examination of the patient and discussed their management with my nurse practitioner, Lety Chaparro. I reviewed the nurse practitioner's note and agree with the documented findings and plan of care. Lung sounds clear. The findings and the impression was discussed with the patient. I attest to the documentation by the nurse practitioner. Time with Patient: Less than 30
== END 2018-10-28 13:24 | disposition home or self-care (01) | DRG 309 ==
LOC: EC 14:06 → 2SICU 16:25 → 3SCARD 10-28 07:32
PROVIDERS: ADMIT Internal Medicine; ATTEND Internal Medicine
DX: I48.3 Typical atrial flutter (principal); J44.1 Chronic obstructive pulmonary disease with (acute) exacerbation; J96.11 Chronic respiratory failure with hypoxia; I48.0 Paroxysmal atrial fibrillation; E11.9 Type 2 diabetes mellitus without complications; E66.01 Morbid (severe) obesity due to excess calories; E78.2 Mixed hyperlipidemia; F17.200 Nicotine dependence, unspecified, uncomplicated; G47.33 Obstructive sleep apnea (adult) (pediatric); I11.9 Hypertensive heart disease without heart failure; I25.10 Atherosclerotic heart disease of native coronary artery without angina pectoris; I25.2 Old myocardial infarction; I48.2 Chronic atrial fibrillation; J98.6 Disorders of diaphragm; K21.9 Gastro-esophageal reflux disease without esophagitis; Z99.89 Dependence on other enabling machines and devices; Z91.19 Patient's noncompliance with other medical treatment and regimen; M19.90 Unspecified osteoarthritis, unspecified site; Z79.01 Long term (current) use of anticoagulants; Z79.02 Long term (current) use of antithrombotics/antiplatelets; Z79.82 Long term (current) use of aspirin; Z79.84 Long term (current) use of oral hypoglycemic drugs; Z79.899 Other long term (current) drug therapy; Z86.72 Personal history of thrombophlebitis; Z86.73 Personal history of transient ischemic attack (TIA), and cerebral infarction without residual deficits; Z86.79 Personal history of other diseases of the circulatory system; Z95.5 Presence of coronary angioplasty implant and graft; Z99.81 Dependence on supplemental oxygen; Z88.0 Allergy status to penicillin
CPT/HCPCS: 36415; 71046; 80048; 80053; 83735; 84100; 84439; 84443; 84484; 85025; 85610; 85730; 93005; 94640; 96361; 96365; 96366; 96375; 96376; 99291

== ENCOUNTER → 2018-11-06 | Outpatient (CLI) | payer MEDICARE ==
--- NOTE | 2018-11-06 15:54 | US ---
EXAMINATION TYPE: US venous doppler duplex LE RT DATE OF EXAM: 11/06/2018 3:36 PM COMPARISON: Right lower extremity be a false on December 08, 2017 CLINICAL HISTORY: Rt Lower Ext, Pain and Swelling. right foot swelling, no h/o dvt SIDE PERFORMED: right TECHNIQUE: The lower extremity deep venous system is examined utilizing real time linear array sonog cesar with graded compression, doppler sonography and color-flow sonography. VESSELS IMAGED: External Iliac Vein (EIV) Common Femoral Vein Deep Femoral Vein Greater Saphenous Vein * Femoral Vein Popliteal Vein Small Saphenous Vein * Proximal Calf Veins (* superficial vessels) Right Leg: Appears negative for DVT *tech impression to office @3:40 Grayscale, color doppler, spectral doppler imaging performed of the deep veins of the right lower ext remity. There is normal flow, compressibility, vascular waveforms. IMPRESSION: No ultrasound evidence for acute DVT in the right lower extremity. No significant change from prior ultrasound.
== END | disposition home or self-care (01) ==
LOC: RADUSWWP 15:11
PROVIDERS: ATTEND Internal Medicine Critical Care Medicine
DX: M79.604 Pain in right leg (principal); M79.89 Other specified soft tissue disorders

== ENCOUNTER 2018-12-06 11:40 | Emergency (ER) | payer MEDICARE ==
[2018-12-06 12:48] LABS: Basophils % (A) 0 %; Eosinophils # (A) 0.3 k/uL (0-0.7); Eosinophils % (A) 4 %; HCT 44.5 % (39.0-53.0); HGB 14.4 gm/dL (13.0-17.5); Lymphocytes # (A) 1.5 k/uL (1.0-4.8); Lymphocytes % (A) 19 %; MCH 32.2 pg (25.0-35.0); MCHC 32.4 g/dL (31.0-37.0); MCV 99.4 fL (80.0-100.0); Monocytes # (A) 0.5 k/uL (0-1.0); Monocytes % (A) 7 %; Neutrophils # (A) 5.4 k/uL (1.3-7.7); Neutrophils % (A) 68 %; Platelet Count 169 k/uL (150-450); RBC 4.48 m/uL (4.30-5.90); RDW 14.1 % (11.5-15.5); WBC 7.9 k/uL (3.8-10.6)
--- NOTE | 2018-12-06 12:55 | ED ---
General Adult HPI - General Chief complaint: Extremity Problem,Nontraumatic Stated complaint: rt leg swelling Time Seen by Provider: 12/06/18 12:00 Source: patient, RN notes reviewed, old records reviewed Mode of arrival: wheelchair Limitations: no limitations - History of Present Illness Initial comments: 68-year-old male patient with past medical history of atrial fibrillation, coronary artery disease, COPD, anticoagulated on eliquis presents to ED with 1 day of right lower extremity swelling and pain. Patient reports that this began last night. Patient was that he has pain with walking and his right lower extremity palpation of his right lower extremity. Patient has any chest pain shortness breath abdominal pain nausea vomiting or diarrhea. Patient denies all other complaints. Systemic: Pt denies fatigue, fever/chills, rash. Pt denies weakness, night sweats, weight loss. Neuro: Pt denies headache, visual disturbances, syncope or pre-syncope. HEENT: Pt denies ocular discharge or irritation, otalgia, rhinorrhea, pharyngitis or notable lymphadenopathy. Cardiopulmonary: Pt denies chest pain, SOB, heart palpitations, dyspnea on exertion. Abdominal/GI: Pt denies abdominal pain, n/v/d. : Pt denies dysuria, burning w/ urination, frequency/urgency. Denies new onset urinary or bowel incontinence. MSK: Pt denies loss of strength or function in extremities. Neuro: Pt denies new onset weakness, paresthesias. - Related Data Home Medications Medication Instructions Recorded Confirmed Albuterol Sulfate [Proair Hfa] 1 - 2 puff INHALATION RT-Q6H PRN 11/07/17 10/25/18 glipiZIDE [Glucotrol] 10 mg PO DAILY 10/25/18 10/25/18 Previous Rx's Medication Instructions Recorded Atorvastatin [Lipitor] 80 mg PO HS #30 tab 08/18/16 Aspirin 81 mg PO DAILY chew 12/11/17 Ipratropium-Albuterol Nebulize 3 ml INHALATION RT-QID #120 10/18/18 [Duoneb 0.5 mg-3 mg/3 ml Soln] ampul.neb predniSONE 10 mg PO DAILY #45 tab 10/18/18 Apixaban [Eliquis] 5 mg PO BID #60 tab 10/28/18 Diltiazem HCl [Cardizem] 90 mg PO TID #90 tablet 10/28/18 Diltiazem Oral [Cardizem*] 90 mg PO TID #90 tab 10/28/18 Sulfamethox-Tmp 800-160Mg [Bactrim 1 tab PO Q12HR #20 tab 12/06/18 DS 800-160 mg] Allergies Allergy/AdvReac Type Severity Reaction Status Date / Time Penicillins Allergy Anaphylaxis Verified 12/06/18 11:44 Review of Systems ROS Statement: Those systems with pertinent positive or pertinent negative responses have been documented in the HPI. ROS Other: All systems not noted in ROS Statement are negative. Past Medical History Past Medical History: Atrial Fibrillation, Coronary Artery Disease (CAD), COPD, GERD/Reflux, Hyperlipidemia, Myocardial Infarction ([place]), Osteoarthritis (OA), Sleep Apnea/CPAP/BIPAP, Vascular Disorder Additional Past Medical History / Comment(s): COPD with a baseline FEV1 of 20% of predicted, obstructive sleep apnea moderate severe with an AHI of 17, chronic atrial fibrillation, coronary artery disease, obesity with a BMI of 38.7, hyperlipidemia, coronary artery disease, abdominal aortic aneurysm, history of right lower extremity phlebitis, history of right wrist fracture, previous history of myocardial infarction Last Myocardial Infarction Date:: 08/2016 History of Any Multi-Drug Resistant Organisms: MRSA Date of last positivie culture/infection: 2007 MDRO Source:: leg Past Surgical History: Appendectomy, Heart Catheterization, Heart Catheterization With Stent, Tonsillectomy Additional Past Surgical History / Comment(s): Colonoscopy, R leg vein stripping. Past Anesthesia/Blood Transfusion Reactions: No Reported Reaction Date of Last Stent Placement:: 09/02/16 Past Psychological History: No Psychological Hx Reported Smoking Status: Former smoker Past Alcohol Use History: None Reported, Rare Past Drug Use History: None Reported - Past Family History Father Family Medical History: No Reported History Additional Family Medical History / Comment(s): in his 80's HAD HEART ISSUES Mother Family Medical History: Dementia Additional Family Medical History / Comment(s): Mother in her 80's Sister(s) Family Medical History: CVA/TIA Additional Family Medical History / Comment(s): Patient has 2 sisters. One has history of stroke in 1 has no major medical problems that he is aware of. Patient does not have any brothers. Daughter(s) Family Medical History: No Reported History Son(s) Family Medical History: No Reported History Additional Family Medical History / Comment(s): Patient has 1 son and 2 daughters with no major medical problems. General Exam - General Exam Comments Initial Comments: Constitutional: NAD, AOX3, Pt has pleasant affect. HEENT: NC/AT, trachea midline, neck supple, no lymphadenopathy. Posterior pharynx non erythematous, without exudates. External ears appear normal, without discharge. Mucous membranes moist. Eyes PERRLA, EOM intact. There is no scleral icterus. No pallor noted. Cardiopulmonary: RRR, no murmurs, rubs or gallops, no JVD noted. Lungs CTAB in anterior and posterior rasheed. No peripheral edema. Abdominal exam: Abdomen soft and non-distended. Abdomen non-tender to palpation in all 4 quadrants. Bowel sounds active in LLQ. No hepatosplenomegaly. No ecchymosis Neuro: CN II-XII grossly intact. No nuchal rigidity. MSK: Right posterior calf mildly tender to palpation right lower extremity, no tenderness to palpation left lower extremity. Homans sign negative in right lower extremity, negative in left lower extremity. Right lower extremity mildly cellulitic. Posterior tibialis and radial pulse +2 bilaterally. Sensation intact in upper and lower extremities. Full active ROM in upper and lower extremities, 5/5 stregnth. Limitations: no limitations Course Vital Signs 12/06/18 12/06/18 11:41 13:31 Temperature 98 F 97.2 F L Pulse Rate 73 64 Respiratory 20 18 Rate Blood Pressure 101/55 106/89 O2 Sat by Pulse 93 L 98 Oximetry Medical Decision Making - Medical Decision Making 68-year-old male patient with past medical history of atrial fibrillation, coronary artery disease, COPD, anticoagulated on eliquis presents to ED with 1 day of right lower extremity swelling and pain. Patient reports that this began last night. Patient was that he has pain with walking and his right lower extremity palpation of his right lower extremity. Patient has any chest pain shortness breath abdominal pain nausea vomiting or diarrhea. Patient denies all other complaints. Pt VSS, afebrile. Physical exam displayed: Right posterior calf mildly tender to palpation right lower extremity, no tenderness to palpation left lower extremity. Homans sign negative in right lower extremity, negative in left lower extremity. Right lower extremity mildly cellulitic. Right lower extremity venous Doppler was negative for DVT. Patient placed on bactrim for cellulitis. Patient will have close outpatient follow-up with primary care provider in 1-2 days. Patient return to ER condition worsens in any way. Case discussed with Dr. Cespedes. - Lab Data Result diagrams: 12/06/18 12:25 12/06/18 12:25 Lab Results 12/06/18 12/06/18 12/06/18 Range/Units 12:25 12:25 12:25 WBC 7.9 (3.8-10.6) k/uL RBC 4.48 (4.30-5.90) m/uL Hgb 14.4 (13.0-17.5) gm/dL Hct 44.5 (39.0-53.0) % MCV 99.4 (80.0-100.0) fL MCH 32.2 (25.0-35.0) pg MCHC 32.4 (31.0-37.0) g/dL RDW 14.1 (11.5-15.5) % Plt Count 169 (150-450) k/uL Neutrophils % 68 % Lymphocytes % 19 % Monocytes % 7 % Eosinophils % 4 % Basophils % 0 % Neutrophils # 5.4 (1.3-7.7) k/uL Lymphocytes # 1.5 (1.0-4.8) k/uL Monocytes # 0.5 (0-1.0) k/uL Eosinophils # 0.3 (0-0.7) k/uL Basophils # 0.0 (0-0.2) k/uL PT 11.3 (9.0-12.0) sec INR 1.1 (<1.2) APTT 27.8 (22.0-30.0) sec Sodium 140 (137-145) mmol/L Potassium 4.7 (3.5-5.1) mmol/L Chloride 106 (98-107) mmol/L Carbon Dioxide 29 (22-30) mmol/L Anion Gap 5 mmol/L BUN 12 (9-20) mg/dL Creatinine 0.83 (0.66-1.25) mg/dL Est GFR (CKD-EPI)AfAm >90 (>60 ml/min/1.73 sqM) Est GFR (CKD-EPI)NonAf >90 (>60 ml/min/1.73 sqM) Glucose 199 H (74-99) mg/dL Calcium 9.3 (8.4-10.2) mg/dL Total Bilirubin 1.9 H (0.2-1.3) mg/dL AST 18 (17-59) U/L ALT 26 (21-72) U/L Alkaline Phosphatase 75 (38-126) U/L Total Protein 5.7 L (6.3-8.2) g/dL Albumin 3.8 (3.5-5.0) g/dL Disposition Clinical Impression: Cellulitis Disposition: HOME SELF-CARE Condition: Stable Additional Instructions: Patient to adhere to previously discussed treatment plan and will take medication(s) as directed. Patient to follow up with PCP in 1-2 days. Patient to return to ED if symptoms do not improve. Please take medication as prescribed. Please follow-up with primary care provider in 1-2 days. Please return to ER condition worsens in any way. Prescriptions: Sulfamethox-Tmp 800-160Mg [Bactrim DS 800-160 mg] 1 tab PO Q12HR #20 tab Is patient prescribed a controlled substance at d/c from ED?: No Referrals: Laron Holland DO [Primary Care Provider] - 1-2 days Time of Disposition: 13:38
--- NOTE | 2018-12-06 12:58 | US ---
EXAMINATION TYPE: US venous doppler duplex LE RT DATE OF EXAM: 12/06/2018 12:45 PM COMPARISON: Previous study dated 11/06/2018. CLINICAL HISTORY: Pain. right calf swelling and redness, on thinners, no h/o dvt, assessed last month for same issue SIDE PERFORMED: right TECHNIQUE: The lower extremity deep venous system is examined utilizing real time linear array sonog cesar with graded compression, doppler sonography and color-flow sonography. VESSELS IMAGED: External Iliac Vein (EIV) Common Femoral Vein Deep Femoral Vein Greater Saphenous Vein * Femoral Vein Popliteal Vein Small Saphenous Vein * Proximal Calf Veins (* superficial vessels) Right Leg: Appears negative for DVT No popliteal fossa lesion is seen. IMPRESSION: THIS EXAMINATION IS NEGATIVE FOR DVT WITHIN THE RIGHT LEG.
[2018-12-06 12:59] LABS: INR 1.1 (<1.2); Partial Thromboplastin Time 27.8 sec (22.0-30.0); Prothrombin Time 11.3 sec (9.0-12.0)
[2018-12-06 13:08] LABS: ALT 26 U/L (21-72); AST 18 U/L (17-59); Albumin 3.8 g/dL (3.5-5.0); Alkaline Phosphatase 75 U/L (38-126); Anion Gap 5 mmol/L; Blood Urea Nitrogen 12 mg/dL (9-20); Calcium 9.3 mg/dL (8.4-10.2); Carbon Dioxide 29 mmol/L (22-30); Chloride 106 mmol/L (98-107); Glucose 199 mg/dL (74-99); Potassium 4.7 mmol/L (3.5-5.1); Sodium 140 mmol/L (137-145); Total Bilirubin 1.9 mg/dL (0.2-1.3); Total Protein 5.7 g/dL (6.3-8.2)
[2018-12-06 13:32] VITALS: BP 106/89; PULSE 64; RESP 18; TEMP 97.2
== END 2018-12-06 13:45 | disposition home or self-care (01) ==
LOC: EC 11:40
DX: L03.115 Cellulitis of right lower limb (principal); I48.2 Chronic atrial fibrillation; I25.10 Atherosclerotic heart disease of native coronary artery without angina pectoris; I25.2 Old myocardial infarction; J44.9 Chronic obstructive pulmonary disease, unspecified; G47.33 Obstructive sleep apnea (adult) (pediatric); E66.9 Obesity, unspecified; Z68.36 Body mass index [BMI] 36.0-36.9, adult; Z79.84 Long term (current) use of oral hypoglycemic drugs; Z88.0 Allergy status to penicillin; Z87.891 Personal history of nicotine dependence; Z95.5 Presence of coronary angioplasty implant and graft
CPT/HCPCS: 36415; 80053; 85025; 85610; 85730; 99284

== ENCOUNTER 2019-06-29 11:53 | Inpatient (IN) | payer MEDICARE ==
[2019-06-29] MEDS ORDERED: IBUPROFEN 600 MG TAB PO STA (12:48)
[2019-06-29] MEDS ORDERED: IPRATROPIUM-ALBUTEROL 3 ML NEB INHALATION STA (12:49)
[2019-06-29] MEDS: SODIUM CHLORIDE 0.9% 500 ML 500 ML IV SCH ×2 (13:00→13:45)
[2019-06-29 13:19] LABS: Basophils # (A) 0.2 k/uL (0-0.2); Basophils % (A) 2 %; Eosinophils # (A) 0.1 k/uL (0-0.7); Eosinophils % (A) 1 %; HCT 49.8 % (39.0-53.0); HGB 16.7 gm/dL (13.0-17.5); Lymphocytes # (A) 2.1 k/uL (1.0-4.8); Lymphocytes % (A) 18 %; MCH 33.6 pg (25.0-35.0); MCHC 33.6 g/dL (31.0-37.0); Mean Platelet Volume 6.7; Monocytes # (A) 0.5 k/uL (0-1.0); Monocytes % (A) 4 %; Neutrophils # (A) 8.5 k/uL (1.3-7.7); Neutrophils % (A) 73 %; Platelet Count 146 k/uL (150-450); RBC 4.98 m/uL (4.30-5.90); RDW 13.8 % (11.5-15.5); WBC 11.7 k/uL (3.8-10.6)
--- NOTE | 2019-06-29 13:24 | XR ---
EXAMINATION TYPE: XR chest 1V portable DATE OF EXAM: 06/29/2019 COMPARISON: 10/25/2018 HISTORY: Fever TECHNIQUE: Single frontal view of the chest is obtained. FINDINGS: There is mild cardiomegaly. Bibasilar subsegmental consolidation. Mild hyperinflation of t he lungs. Atherosclerotic change aorta. Arthropathy of the right shoulder. Related for mild COPD IMPRESSION: 1. Bibasilar atelectasis versus pneumonia.
[2019-06-29 13:26] LABS: Appearance,Urine Clear (Clear); Bacteria,Urine Rare /hpf; Bilirubin,Urine Negative (Negative); Blood,Urine Negative (Negative); Color,Urine Light Yellow; Glucose,Urine (UA) Negative (Negative); Ketones,Urine Trace (Negative); Leukocyte Esterase,Urine Large (Negative); Mucus,Urine Rare /hpf; Nitrite,Urine Negative (Negative); PH, Urine 7.5 (5.0-8.0); Partial Thromboplastin Time 23.8 sec (22.0-30.0); Protein,Urine Negative (Negative); Prothrombin Time 10.9 sec (9.0-12.0); RBC,Urine 5 /hpf (0-5); Specific Gravity,Urine 1.015 (1.001-1.035); Squamous Epithelial Cell,Urine 2 /hpf (0-4); Urobilinogen,Urine <2.0 mg/dL (<2.0)
[2019-06-29] MEDS ORDERED: DILTIAZEM DRIP BOLUS FROM BAG 1 MG SOLN IV ONE (13:34)
[2019-06-29 13:36] LABS: ALT 43 U/L (21-72); AST 33 U/L (17-59); African American GFR (CKD) >90 (>60 ml/min/1.73 sqM); Albumin 4.3 g/dL (3.5-5.0); Alkaline Phosphatase 71 U/L (38-126); Anion Gap 9 mmol/L; Blood Urea Nitrogen 15 mg/dL (9-20); C Reactive Protein 7.8 mg/L (<10.0); Calcium 9.4 mg/dL (8.4-10.2); Carbon Dioxide 28 mmol/L (22-30); Chloride 105 mmol/L (98-107); Glucose 113 mg/dL (74-99); Non-African American GFR(CKD) >90 (>60 ml/min/1.73 sqM); Potassium 4.5 mmol/L (3.5-5.1); Sodium 142 mmol/L (137-145); Total Bilirubin 2.2 mg/dL (0.2-1.3); Total Protein 6.7 g/dL (6.3-8.2)
[2019-06-29] MEDS: DILTIAZEM 125 MG in SODIUM CHLORIDE 0.9% 100 ML IV SCH ×3 (14:07→17:30)
--- NOTE | 2019-06-29 14:14 | ED ---
SOB HPI - General Chief Complaint: Shortness of Breath Stated Complaint: weakness, cough Time Seen by Provider: 06/29/19 12:00 Source: patient, EMS Mode of arrival: EMS Limitations: no limitations - History of Present Illness Initial Comments: The patient is a 69-year-old male with past medical history of A. fib, COPD and coronary artery disease who presents to the emergency department with reported shortness of breath. The patient appears to be a very poor historian. He does arrive alone via EMS. The patient reportedly states "I do not feel well". He cannot elaborate on this. When questioning the patient whether he feels short of breath, he does state yes. He denies chest pain. Admits to chest palpitations. Denies a cough with fevers or chills. No hemoptysis. He will occasionally where oxygen at home as needed every states he does not wear this time. He has a history of sleep apnea with CPAP use. Does see Dr. Berumen in office. Has been using his medications at home for COPD however this hasn't been helping his symptoms. The shortness of breath became worse today and this prompted EMS call. Family does present to bedside and states the patient has had a bad cough for the past week. His bedside has been sick as well. The patient does have a history of DVT and PE. He is on Elquis for his A. fib. Denies any missed doses. States he has taken his medications today. The patient's upon arrival was noted to be extremely tachycardic with a heart rate in the 170s. The remainder of the HPI is limited because the patient's current altered mental status. Family denies recent falls or blunt head trauma. - Related Data Home Medications Medication Instructions Recorded Confirmed Albuterol Sulfate [Proair Hfa] 1 - 2 puff INHALATION RT-Q6H PRN 11/07/17 06/29/19 glipiZIDE [Glucotrol] 10 mg PO DAILY 10/25/18 06/29/19 Budesonide [Pulmicort] 0.5 mg INHALATION RT-BID 06/29/19 06/29/19 metFORMIN HCL 1,000 mg PO DAILY 06/29/19 06/29/19 Previous Rx's Medication Instructions Recorded Atorvastatin [Lipitor] 80 mg PO HS #30 tab 08/18/16 Aspirin 81 mg PO DAILY chew 12/11/17 Ipratropium-Albuterol Nebulize 3 ml INHALATION RT-QID #120 10/18/18 [Duoneb 0.5 mg-3 mg/3 ml Soln] ampul.neb Apixaban [Eliquis] 5 mg PO BID #60 tab 10/28/18 Diltiazem HCl [Cardizem] 90 mg PO TID #90 tablet 10/28/18 Allergies Allergy/AdvReac Type Severity Reaction Status Date / Time Penicillins Allergy Anaphylaxis Verified 06/29/19 13:56 sulfamethoxazole Allergy Rash/Hives Verified 06/29/19 13:56 [From Bactrim] trimethoprim [From Bactrim] Allergy Rash/Hives Verified 06/29/19 13:56 Review of Systems ROS Statement: Those systems with pertinent positive or pertinent negative responses have been documented in the HPI. ROS Other: All systems not noted in ROS Statement are negative. Past Medical History Past Medical History: Atrial Fibrillation, Coronary Artery Disease (CAD), COPD, GERD/Reflux, Hyperlipidemia, Myocardial Infarction (CT), Osteoarthritis (OA), Sleep Apnea/CPAP/BIPAP, Vascular Disorder Additional Past Medical History / Comment(s): COPD with a baseline FEV1 of 20% of predicted, obstructive sleep apnea moderate severe with an AHI of 17, chronic atrial fibrillation, coronary artery disease, obesity with a BMI of 38.7, hyperlipidemia, coronary artery disease, abdominal aortic aneurysm, history of right lower extremity phlebitis, history of right wrist fracture, previous history of myocardial infarction Last Myocardial Infarction Date:: 08/2016 History of Any Multi-Drug Resistant Organisms: MRSA Date of last positivie culture/infection: 2007 MDRO Source:: leg Past Surgical History: Appendectomy, Heart Catheterization, Heart Catheterization With Stent, Tonsillectomy Additional Past Surgical History / Comment(s): Colonoscopy, R leg vein stripping. Past Anesthesia/Blood Transfusion Reactions: No Reported Reaction Date of Last Stent Placement:: 09/02/16 Past Psychological History: No Psychological Hx Reported Smoking Status: Former smoker Past Alcohol Use History: Rare Past Drug Use History: None Reported - Past Family History Father Family Medical History: No Reported History Additional Family Medical History / Comment(s): in his 80's HAD HEART ISSUES Mother Family Medical History: Dementia Additional Family Medical History / Comment(s): Mother in her 80's Sister(s) Family Medical History: CVA/TIA Additional Family Medical History / Comment(s): Patient has 2 sisters. One has history of stroke in 1 has no major medical problems that he is aware of. Patient does not have any brothers. Daughter(s) Family Medical History: No Reported History Son(s) Family Medical History: No Reported History Additional Family Medical History / Comment(s): Patient has 1 son and 2 daughters with no major medical problems. General Exam Limitations: altered mental status General appearance: alert, in distress, obese Head exam: Present: atraumatic, normocephalic Eye exam: Present: PERRL, EOMI ENT exam: Present: mucous membranes dry Neck exam: Present: normal inspection. Absent: tenderness, meningismus Respiratory exam: Present: respiratory distress, wheezes, rales, accessory muscle use, decreased breath sounds Cardiovascular Exam: Present: tachycardia, irregular rhythm GI/Abdominal exam: Present: soft. Absent: distended, tenderness, guarding, rebound, rigid, pulsatile mass Extremities exam: Present: pedal edema, other (right lower extremity is red, hot, swollen) Back exam: Present: normal inspection Neurological exam: Present: altered Skin exam: Present: warm, dry Course Vital Signs 06/29/19 06/29/19 06/29/19 11:59 12:30 13:04 Temperature 99.8 F H Pulse Rate 84 146 H 75 Respiratory 24 28 H 27 H Rate Blood Pressure 131/104 134/89 120/75 O2 Sat by Pulse 97 95 94 L Oximetry 06/29/19 06/29/19 06/29/19 13:05 13:15 13:30 Temperature Pulse Rate 102 H 98 179 H Respiratory 28 H Rate Blood Pressure 129/99 O2 Sat by Pulse 93 L Oximetry 06/29/19 06/29/19 06/29/19 14:00 14:43 15:00 Temperature Pulse Rate 176 H 176 H 146 H Respiratory 29 H 30 H 29 H Rate Blood Pressure 128/93 97/72 95/64 O2 Sat by Pulse 92 L 93 L 96 Oximetry 06/29/19 06/29/19 06/29/19 15:25 16:00 16:38 Temperature Pulse Rate 133 H 146 H 149 H Respiratory 27 H 21 24 Rate Blood Pressure 120/85 112/99 97/51 O2 Sat by Pulse 99 99 98 Oximetry 06/29/19 06/29/19 06/29/19 16:45 17:00 17:15 Temperature 98.9 F Pulse Rate 147 H 172 H 152 H Respiratory 26 H 21 26 H Rate Blood Pressure 66/43 82/65 90/65 O2 Sat by Pulse 99 98 98 Oximetry 06/29/19 06/29/19 06/29/19 17:30 17:45 18:00 Temperature 99.0 F Pulse Rate 141 H 165 H 124 H Respiratory 26 H 28 H 26 H Rate Blood Pressure 91/56 101/86 122/69 O2 Sat by Pulse 96 98 97 Oximetry 06/29/19 18:30 Temperature 99.0 F Pulse Rate 138 H Respiratory 26 H Rate Blood Pressure 108/65 O2 Sat by Pulse 96 Oximetry Medical Decision Making - Medical Decision Making Upon arrival the patient was placed into room 8. He is noted to be tachycardic with a heart rate in the 170s. He is also tachypneic with a respiratory rate of 30. The patient cannot provide much history. His vital exam demonstrates a red , warm swollen right lower extremity. As I am concerned for his increased work of breathing I do place the patient BiPAP. Laboratory studies were drawn and the patient was sent over for a chest x-ray. Family does arrive to bedside. They state that the patient's right lower extremity became warm and swollen last night. He is reporting that it's painful. He also states that his breathing got acutely worse today. Because of their history I do add on a right lower extremity Doppler and a CT of the patient's chest. Laboratory studies demonstrated white blood cell count 11.7. Platelets 146. Coags are normal. Lactic acid is 2.5. Urinalysis shows large leukocyte esterase, 15 white blood c ells, rare bacteria. Influenza A and B are negative. Chest x-ray demonstrates bibasilar atelectasis versus pneumonia. I did obtain cultures and initiated Rocephin and azithromycin on the patient as he has not been hospitalized in the past 3 months. I did order a blood gas to the patient has been on BiPAP for approximately one hour which demonstrates a pH of 7.46, CO2 of 39, O2 of 102 and a bicarb of 27. As the patient does seem confused and calf is within normal range, the patient was sent over for a CT of his brain which demonstrates no acute intracranial findings. CT of the patient's chest demonstrates no large central or lobar pulmonary embolism however the smaller distal arterial branches are nondiagnostic. The patient is ready on Eliquis. Also demonstrates COPD with moderate emphysema and stranding areas of scarring. Venous duplex demonstrates no acute DVT. I did alter the patient's medications to discontinue azithromycin as the patient's chest CT does not demonstrate a large infiltrate. Did add on Vanco because of my concern patient's right lower extremity cellulitis. The patient did receive 2400 mL of IV fluid. He has been started on 100 mL per hour. This is 30 mL per KG sepsis bolus. Provided the patient with 600 mg of Motrin. Repeat lactic acid was ordered. The patient continues to have an elevated heart rate in the 160s. I did give the patient a 10 mg bolus of Cardizem and placed him on 5 mg per hour. He does have slight improvement in his heart rate however only comes down to the 140s. I did attempt to re-bolused the patient however he does have an episode of hypotension. Cardizem drip is turned off. This patient does have a systolic of 60 mmhg. The patient has had improvement in his systolic blood pressure. Because of my difficulty cont rolling his heart rate I called and discussed the case with Dr. Mcallister. He does request that I place the patient on 25 mg by mouth of Lopressor twice daily and continue the patient on 10 mg of Cardizem per hour. The patient will be admitted to the ICU. A call discuss the case with Dr. Condon who accepted admission. I called and discussed case with Dr. Berumen who accepted the patient into the ICU. The patient was transported to floor in stable condition - Lab Data Result diagrams: 07/02/19 05:21 07/02/19 05:21 Lab Results 06/29/19 06/29/19 06/29/19 Range/Units 12:00 12:00 12:00 WBC 11.7 H (3.8-10.6) k/uL RBC 4.98 (4.30-5.90) m/uL Hgb 16.7 (13.0-17.5) gm/dL Hct 49.8 (39.0-53.0) % MCV 100.0 (80.0-100.0) fL MCH 33.6 (25.0-35.0) pg MCHC 33.6 (31.0-37.0) g/dL RDW 13.8 (11.5-15.5) % Plt Count 146 L (150-450) k/uL Neutrophils % 73 % Lymphocytes % 18 % Monocytes % 4 % Eosinophils % 1 % Basophils % 2 % Neutrophils # 8.5 H (1.3-7.7) k/uL Lymphocytes # 2.1 (1.0-4.8) k/uL Monocytes # 0.5 (0-1.0) k/uL Eosinophils # 0.1 (0-0.7) k/uL Basophils # 0.2 (0-0.2) k/uL PT 10.9 (9.0-12.0) sec INR 1.0 (<1.2) APTT 23.8 (22.0-30.0) sec Sample Site ABG pH (7.35-7.45) ABG pCO2 (35-45) mmHg ABG pO2 (83-108) mmHg ABG HCO3 (21-25) mmol/L ABG Total CO2 (19-24) mmol/L ABG O2 Saturation (94-97) % ABG Base Excess mmol/L Deven Test FiO2 % Sodium 142 (137-145) mmol/L Potassium 4.5 (3.5-5.1) mmol/L Chloride 105 (98-107) mmol/L Carbon Dioxide 28 (22-30) mmol/L Anion Gap 9 mmol/L BUN 15 (9-20) mg/dL Creatinine 0.79 (0.66-1.25) mg/dL Est GFR (CKD-EPI)AfAm >90 (>60 ml/min/1.73 sqM) Est GFR (CKD-EPI)NonAf >90 (>60 ml/min/1.73 sqM) Glucose 113 H (74-99) mg/dL Lactic Ac Sepsis Rflx Plasma Lactic Acid Ravinder (0.7-2.0) mmol/L Calcium 9.4 (8.4-10.2) mg/dL Total Bilirubin 2.2 H (0.2-1.3) mg/dL AST 33 (17-59) U/L ALT 43 (21-72) U/L Alkaline Phosphatase 71 (38-126) U/L Troponin I (0.000-0.034) ng/mL C-Reactive Protein 7.8 (<10.0) mg/L Total Protein 6.7 (6.3-8.2) g/dL Albumin 4.3 (3.5-5.0) g/dL Urine Color Urine Appearance (Clear) Urine pH (5.0-8.0) Ur Specific [place] (1.001-1.035) Urine Protein (Negative) Urine Glucose (UA) (Negative) Urine Ketones (Negative) Urine Blood (Negative) Urine Nitrite (Negative) Urine Bilirubin (Negative) Urine Urobilinogen (<2.0) mg/dL Ur Leukocyte Esterase (Negative) Urine RBC (0-5) /hpf Urine WBC (0-5) /hpf Ur Squamous Epith Cells (0-4) /hpf Urine Bacteria (None) /hpf Urine Mucus (None) /hpf Influenza Type A RNA (Not Detectd) Influenza Type B (PCR) (Not Detectd) 06/29/19 06/29/19 06/29/19 Range/Units 12:00 12:00 13:18 WBC (3.8-10.6) k/uL RBC (4.30-5.90) m/uL Hgb (13.0-17.5) gm/dL Hct (39.0-53.0) % MCV (80.0-100.0) fL MCH (25.0-35.0) pg MCHC (31.0-37.0) g/dL RDW (11.5-15.5) % Plt Count (150-450) k/uL Neutrophils % % Lymphocytes % % Monocytes % % Eosinophils % % Basophils % % Neutrophils # (1.3-7.7) k/uL Lymphocytes # (1.0-4.8) k/uL Monocytes # (0-1.0) k/uL Eosinophils # (0-0.7) k/uL Basophils # (0-0.2) k/uL PT (9.0-12.0) sec INR (<1.2) APTT (22.0-30.0) sec Sample Site ABG pH (7.35-7.45) ABG pCO2 (35-45) mmHg ABG pO2 (83-108) mmHg ABG HCO3 (21-25) mmol/L ABG Total CO2 (19-24) mmol/L ABG O2 Saturation (94-97) % ABG Base Excess mmol/L Deven Test FiO2 % Sodium (137-145) mmol/L Potassium (3.5-5.1) mmol/L Chloride (98-107) mmol/L Carbon Dioxide (22-30) mmol/L Anion Gap mmol/L BUN (9-20) mg/dL Creatinine (0.66-1.25) mg/dL Est GFR (CKD-EPI)AfAm (>60 ml/min/1.73 sqM) Est GFR (CKD-EPI)NonAf (>60 ml/min/1.73 sqM) Glucose (74-99) mg/dL Lactic Ac Sepsis Rflx Plasma Lactic Acid Ravinder (0.7-2.0) mmol/L Calcium (8.4-10.2) mg/dL Total Bilirubin (0.2-1.3) mg/dL AST (17-59) U/L ALT (21-72) U/L Alkaline Phosphatase (38-126) U/L Troponin I <0.012 (0.000-0.034) ng/mL C-Reactive Protein (<10.0) mg/L Total Protein (6.3-8.2) g/dL Albumin (3.5-5.0) g/dL Urine Color Light Yellow Urine Appearance Clear (Clear) Urine pH 7.5 (5.0-8.0) Ur Specific [place] 1.015 (1.001-1.035) Urine Protein Negative (Negative) Urine Glucose (UA) Negative (Negative) Urine Ketones Trace H (Negative) Urine Blood Negative (Negative) Urine Nitrite Negative (Negative) Urine Bilirubin Negative (Negative) Urine Urobilinogen <2.0 (<2.0) mg/dL Ur Leukocyte Esterase Large H (Negative) Urine RBC 5 (0-5) /hpf Urine WBC 15 H (0-5) /hpf Ur Squamous Epith Cells 2 (0-4) /hpf Urine Bacteria Rare H (None) /hpf Urine Mucus Rare H (None) /hpf Influenza Type A RNA Not Detected (Not Detectd) Influenza Type B (PCR) Not Detected (Not Detectd) 06/29/19 06/29/19 06/29/19 Range/Units 13:20 13:38 14:55 WBC (3.8-10.6) k/uL RBC (4.30-5.90) m/uL Hgb (13.0-17.5) gm/dL Hct (39.0-53.0) % MCV (80.0-100.0) fL MCH (25.0-35.0) pg MCHC (31.0-37.0) g/dL RDW (11.5-15.5) % Plt Count (150-450) k/uL Neutrophils % % Lymphocytes % % Monocytes % % Eosinophils % % Basophils % % Neutrophils # (1.3-7.7) k/uL Lymphocytes # (1.0-4.8) k/uL Monocytes # (0-1.0) k/uL Eosinophils # (0-0.7) k/uL Basophils # (0-0.2) k/uL PT (9.0-12.0) sec INR (<1.2) APTT (22.0-30.0) sec Sample Site r rad ABG pH 7.46 H (7.35-7.45) ABG pCO2 39 (35-45) mmHg ABG pO2 102 (83-108) mmHg ABG HCO3 27 H (21-25) mmol/L ABG Total CO2 28 H (19-24) mmol/L ABG O2 Saturation 98.4 H (94-97) % ABG Base Excess 3.3 mmol/L Deven Test Yes FiO2 40 % Sodium (137-145) mmol/L Potassium (3.5-5.1) mmol/L Chloride (98-107) mmol/L Carbon Dioxide (22-30) mmol/L Anion Gap mmol/L BUN (9-20) mg/dL Creatinine (0.66-1.25) mg/dL Est GFR (CKD-EPI)AfAm (>60 ml/min/1.73 sqM) Est GFR (CKD-EPI)NonAf (>60 ml/min/1.73 sqM) Glucose (74-99) mg/dL Lactic Ac Sepsis Rflx Y Plasma Lactic Acid Ravinder 2.5 H* (0.7-2.0) mmol/L Calcium (8.4-10.2) mg/dL Total Bilirubin (0.2-1.3) mg/dL AST (17-59) U/L ALT (21-72) U/L Alkaline Phosphatase (38-126) U/L Troponin I (0.000-0.034) ng/mL C-Reactive Protein (<10.0) mg/L Total Protein (6.3-8.2) g/dL Albumin (3.5-5.0) g/dL Urine Color Urine Appearance (Clear) Urine pH (5.0-8.0) Ur Specific [place] (1.001-1.035) Urine Protein (Negative) Urine Glucose (UA) (Negative) Urine Ketones (Negative) Urine Blood (Negative) Urine Nitrite (Negative) Urine Bilirubin (Negative) Urine Urobilinogen (<2.0) mg/dL Ur Leukocyte Esterase (Negative) Urine RBC (0-5) /hpf Urine WBC (0-5) /hpf Ur Squamous Epith Cells (0-4) /hpf Urine Bacteria (None) /hpf Urine Mucus (None) /hpf Influenza Type A RNA (Not Detectd) Influenza Type B (PCR) (Not Detectd) - EKG Data EKG Comments: EKG demonstrates a flutter versus A. fib with a rate of 160. QRS 68. QTC 499. Significant artifact in leads V4 and V5. Q-wave in lead 3. Critical Care Time Critical Care Time: Yes Total Critical Care Time: 40 (mins) Disposition Clinical Impression: Atrial fibrillation with RVR, COPD with acute exacerbation, Community acquired pneumonia Disposition: ADMITTED IP TO THIS HOSP Condition: Serious Is patient prescribed a controlled substance at d/c from ED?: No Decision to Admit Reason: Admit from EC Decision Date: 06/29/19 Decision Time: 17:00
[2019-06-29] MEDS ORDERED: LEVOFLOXACIN 750MG-D5W PMX 750 MG in DEXTROSE/WATER 1 150ML.BAG IVPB STA (14:19)
[2019-06-29] MEDS ORDERED: AZITHROMYCIN 500 MG in SODIUM CHLORIDE 0.9% 250 ML IVPB STA (14:20)
[2019-06-29] MEDS ORDERED: methylPREDNISolone SOD SUCCI 125 MG/2 ML VIAL IV STA (14:29)
[2019-06-29] MEDS ORDERED: VANCOMYCIN 1,750 MG in SODIUM CHLORIDE 0.9% 500 ML 500 ML IVPB STA (14:29)
[2019-06-29 14:59] LABS: ABG Base Excess 3.3 mmol/L; ABG HCO3 27 mmol/L (21-25); ABG Oxygen Saturation 98.4 % (94-97); ABG PCO2 39 mmHg (35-45); ABG PH 7.46 (7.35-7.45); ABG PO2 102 mmHg (83-108); ABG TCO2 28 mmol/L (19-24); Allen Test Performed? Yes
[2019-06-29] MEDS ORDERED: SODIUM CHLORIDE 0.9% 1,000 ML IV ONE (15:15)
[2019-06-29] MEDS ORDERED: SODIUM CHLORIDE 0.9% 500 ML 500 ML IV ONE (15:15)
--- NOTE | 2019-06-29 15:32 | CT ---
EXAMINATION TYPE: CT brain wo con DATE OF EXAM: 06/29/2019 COMPARISON: None HISTORY: 69-year-old male confusion, altered mental status. TECHNIQUE: Examination was done in axial plane without intravenous contrast. Coronal and sagittal r econstructions performed. CT DLP: 1158 mGycm Automated exposure control for dose reduction was used. FINDINGS: There is no evidence of acute intracranial hemorrhage, acute ischemic changes, mass, mass-effect, or extra-axial fluid collection. There is no effacement of cerebral sulci or basal subarachnoid cister ns. There is no hydrocephalus. There is no midline shift. Escobar-white matter distinction is preserv ed. Mild age-related cerebral cortical volume loss. Paranasal sinuses and mastoid air cells are well pneumatized. Orbits and globes are intact. IMPRESSION: No acute intracranial abnormality seen.
--- NOTE | 2019-06-29 15:46 | CT ---
EXAMINATION TYPE: CT chest angio for PE DATE OF EXAM: 06/29/2019 COMPARISON: 12/09/2017 HISTORY: 69-year-old male shortness of breath, history of PE TECHNIQUE: Contiguous axial scanning of the chest performed with IV Contrast, patient injected with 1 00 mL of Isovue 370. Coronal/sagittal MIP reconstructions performed. CT DLP: 895.6 mGycm Automated exposure control for dose reduction was used. FINDINGS: Heart upper limits of normal in size without pericardial effusion. Prominent epicardial fat pad. Aorta normal caliber with conventional arch vessel branching anatomy. Scattered nonenlarged mediastinal lymph nodes. No thoracic lymphadenopathy by CT size criteria. No flattening of the interventricular septum or reflux of contrast into the hepatic veins. Satisfactory opacification of the pulmonary system but with patient breathing during the scan. No lar ge central or lobar pulmonary embolus. Many of the segmental and more distal arterial branches are no ndiagnostic. Some suspicious areas are present, for example, left lower lobe, axial image 77 and 91. Moderate centrilobular emphysema. Patchy atelectasis peripheral left midlung and additional atelectas is inferior lingula and left base. No consolidation or pleural effusion. Visualized upper abdomen shows no gross abnormality. Bones: No osseous destructive process. Mild multilevel degenerative disc disease. IMPRESSION: 1. THE PATIENT WAS BREATHING DURING THE SCAN. MANY OF THE SEGMENTAL AND MORE DISTAL ARTERIAL BRANCHES ARE NONDIAGNOSTIC. A COUPLE SUSPICIOUS AREAS ARE PRESENT IN THE LEFT LOWER LOBE AT THE SEGMENTAL LEV EL, REFER TO AXIAL IMAGE 77 AND 91. SEGMENTAL BRANCH EMBOLI ARE VERY DIFFICULT TO EXCLUDE HERE. FIND INGS ARE EQUIVOCAL BETWEEN MOTION ARTIFACT. 2. NO LARGE CENTRAL OR LOBAR PULMONARY EMBOLUS. 3. COPD WITH MODERATE EMPHYSEMA AND STRANDY AREAS OF SCARRING OR ATELECTASIS LEFT MID AND LOWER LUNG.
--- NOTE | 2019-06-29 16:20 | US ---
EXAMINATION TYPE: US venous doppler duplex LE RT DATE OF EXAM: 06/29/2019 4:10 PM COMPARISON: US CLINICAL HISTORY: 69-year-old male swelling, pain. EC patient with lower right leg skin redness x 2 d ays; GLORIA; Right GSV stripping per patient SIDE PERFORMED: Right TECHNIQUE: The lower extremity deep venous system is examined utilizing real time linear array sonog cesar with graded compression, doppler sonography and color-flow sonography. FINDINGS: VESSELS IMAGED: Common Femoral Vein Deep Femoral Vein Greater Saphenous Vein * (GSV) Femoral Vein Popliteal Vein Small Saphenous Vein * Proximal Calf Veins Posterior tibial veins (* superficial vessels) Right Leg: Negative for DVT Some subcutaneous edema is noted at the level of the knee and upper calf. IMPRESSION: No evidence for DVT within the right lower extremity. Subcutaneous edema at the knee and upper calf.
[2019-06-29] MEDS ORDERED: NALOXONE 0.4 MG/ML 1 ML VIAL IV PRN (17:03)
[2019-06-29] MEDS ORDERED: SODIUM CHLORIDE 0.9% 1,000 ML IV STA (17:35)
[2019-06-29] MEDS ORDERED: AZITHROMYCIN 500 MG TAB PO STA (17:36)
[2019-06-29] MEDS: METOPROLOL TARTRATE 25 MG TAB PO SCH (19:03)
[2019-06-29 19:04] LABS: Glucose,Whole Blood 209 mg/dL (75-99)
[2019-06-29] MEDS: BUDESONIDE 0.5 MG/2 ML NEBU INHALATION SCH (19:58)
[2019-06-29] MEDS: IPRATROPIUM-ALBUTEROL 3 ML NEB INHALATION PRN (19:58)
[2019-06-29 20:52] LABS: Glucose,Whole Blood 245 mg/dL (75-99)
[2019-06-29] MEDS ORDERED: ALBUTEROL NEBULIZED 2.5 MG/3 ML INHALATION PRN (20:57)
[2019-06-29] MEDS: ATORVASTATIN 80 MG TAB PO SCH (21:12)
[2019-06-29] MEDS: APIXABAN 5 MG TAB PO SCH (21:12)
[2019-06-29] MEDS: INSULIN ASPART (NovoLOG) 100 UNIT/ML VIAL SQ SCH (21:12)
[2019-06-30] MEDS: DILTIAZEM 125 MG in SODIUM CHLORIDE 0.9% 100 ML IV SCH (03:15)
[2019-06-30 05:31] LABS: Basophils % (A) 0 %; Eosinophils % (A) 0 %; HCT 42.6 % (39.0-53.0); Lymphocytes # (A) 0.5 k/uL (1.0-4.8); Lymphocytes % (A) 6 %; MCH 33.7 pg (25.0-35.0); MCHC 32.8 g/dL (31.0-37.0); MCV 102.8 fL (80.0-100.0); Macrocytosis Slight; Mean Platelet Volume 6.7; Monocytes # (A) 0.2 k/uL (0-1.0); Monocytes % (A) 2 %; Neutrophils # (A) 8.8 k/uL (1.3-7.7); Neutrophils % (A) 91 %; Platelet Count 122 k/uL (150-450); RBC 4.15 m/uL (4.30-5.90); RDW 13.8 % (11.5-15.5); WBC 9.7 k/uL (3.8-10.6)
[2019-06-30 05:42] LABS: African American GFR (CKD) >90 (>60 ml/min/1.73 sqM); Anion Gap 6 mmol/L; Blood Urea Nitrogen 16 mg/dL (9-20); Calcium 8.3 mg/dL (8.4-10.2); Carbon Dioxide 22 mmol/L (22-30); Chloride 108 mmol/L (98-107); Glucose 225 mg/dL (74-99); Magnesium 1.7 mg/dL (1.6-2.3); Non-African American GFR(CKD) >90 (>60 ml/min/1.73 sqM); Phosphorus 3.5 mg/dL (2.5-4.5); Potassium 4.4 mmol/L (3.5-5.1); Sodium 136 mmol/L (137-145)
[2019-06-30] MEDS: BUDESONIDE 0.5 MG/2 ML NEBU INHALATION SCH ×2 (05:43→20:42)
[2019-06-30] MEDS: IPRATROPIUM-ALBUTEROL 3 ML NEB INHALATION SCH ×4 (05:43→20:42)
[2019-06-30] MEDS ORDERED: Magnesium Replacement Protocol 1 EACH MISC MISCELLANE PRN (05:47)
[2019-06-30] MEDS: MAGNESIUM SULFATE-D5W PMX 1 GM in DEXTROSE/WATER 1 100ML.BAG IVPB SCH ×2 (05:52→06:48)
[2019-06-30 06:33] LABS: Glucose,Whole Blood 217 mg/dL (75-99)
[2019-06-30] MEDS: INSULIN ASPART (NovoLOG) 100 UNIT/ML VIAL SQ SCH ×4 (06:48→21:03)
[2019-06-30] MEDS: metFORMIN 500 MG TAB PO SCH (07:29)
--- NOTE | 2019-06-30 07:59 | XR ---
EXAMINATION TYPE: XR chest 1V DATE OF EXAM: 06/30/2019 COMPARISON: 06/29/2019 HISTORY: Pneumonia. Follow-up exam. TECHNIQUE: Single frontal view of the chest is obtained. FINDINGS: There is a slightly improved retrocardiac opacity and trace left pleural effusion. Right c ostophrenic angle is not visualized. Cardia mediastinal silhouette is upper limits of normal size and shifted to the left likely secondary to patient rotation and atelectasis. No sizable pneumothorax. N o interstitial edema. Improved aeration of the right middle lobe. Left hemidiaphragm elevation is sim ilar to the prior. IMPRESSION: Improved aeration of the right middle lobe. Improved left basilar opacity with trace lef t pleural effusion. Left hemidiaphragmelevation may be on the basis of atelectasis.
--- NOTE | 2019-06-30 08:27 | P.CNPUL ---
History of Present Illness Consult date: 06/29/19 Reason for consult: dyspnea, COPD History of present illness: This is a 69-year-old male patient with well-known to me. The patient came into the emergency department today because of worsening shortness of breath. He was slightly confused, bronchospastic and wheezy and short of breath and he was also in atrial fibrillation with rapid ventricular response. Note that the patient has COPD which is severe with a baseline FEV1 of 20% of predicted. He has obstructive sleep apnea with an AHI of 17. He suffers from chronic atrial fibrillation and coronary artery disease. His last hospitalization was back in October 2018 when he came in for a similar presentation of shortness of breath and a flutter and he was given Cardizem drip for rate control. During this current admission, the patient was started on a Cardizem drip. He became hypotensive. The Cardizem drip was discontinued briefly. He was given a total of 2.5 L of normal saline bolus. He was placed on a BiPAP for respiratory support. A CT angiogram was done that showed no evidence of any pulmonary embolism. And this was done and FiO2 of 40% with a pressures of 10/5 cm of water. His white cell count is at 11.7. His lactic acid level is at 2.5. He has some erythema and swelling of the left lower extremity. Doppler of the lower extremity was done and the patient did not have any DVT. The patient is being considered for encephalitis of the left lower extremity. Currently he is comfortable on the BiPAP. Review of Systems Constitutional: Denies chills, Denies fever, Denies poor appetite, Denies weakness, Denies weight loss Eyes: denies blurred vision, denies pain Ears, nose, mouth and throat: Denies dysphagia, Denies headache, Denies sore throat, Denies vertigo Cardiovascular: Reports dyspnea on exertion, Reports irregular heart beat, Reports palpitations, Denies chest pain, Denies edema, Denies lightheadedness, Denies shortness of breath, Denies syncope Respiratory: Reports dyspnea, Reports home oxygen, Reports wheezing, Denies cough, Denies cough with sputum, Denies excessive sputum, Denies hemoptysis, Denies respiratory infections Gastrointestinal: Reports loss of appetite, Denies abdominal pain, Denies diarrhea, Denies nausea, Denies vomiting Genitourinary: Denies dysuria Musculoskeletal: Denies arm numbness/tingling, Denies frequent falls, Denies gait dysfunction, Denies leg numbness/tingling, Denies myalgias Integumentary: Denies pruritus, Denies rash, Denies wounds Neurological: Denies aphasia, Denies change in mentation, Denies numbness, Denies vertigo, Denies weakness Psychiatric: Denies anxiety, Denies depression Endocrine: Denies fatigue, Denies weight change Past Medical History Past Medical History: Atrial Fibrillation, Coronary Artery Disease (CAD), COPD, GERD/Reflux, Hyperlipidemia, Myocardial Infarction (NM), Osteoarthritis (OA), Sleep Apnea/CPAP/BIPAP, Vascular Disorder Additional Past Medical History / Comment(s): COPD with a baseline FEV1 of 20% of predicted, obstructive sleep apnea moderate severe with an AHI of 17, chronic atrial fibrillation, coronary artery disease, obesity with a BMI of 38.7, hyperlipidemia, coronary artery disease, abdominal aortic aneurysm, history of right lower extremity phlebitis, history of right wrist fracture, previous history of myocardial infarction Last Myocardial Infarction Date:: 08/2016 History of Any Multi-Drug Resistant Organisms: MRSA Date of last positivie culture/infection: 2007 MDRO Source:: leg Past Surgical History: Appendectomy, Heart Catheterization, Heart Catheterization With Stent, Tonsillectomy Additional Past Surgical History / Comment(s): Colonoscopy, R leg vein stripping. Past Anesthesia/Blood Transfusion Reactions: No Reported Reaction Date of Last Stent Placement:: 09/02/16 Past Psychological History: No Psychological Hx Reported Smoking Status: Former smoker Past Alcohol Use History: Rare Past Drug Use History: None Reported - Past Family History Father Family Medical History: No Reported History Additional Family Medical History / Comment(s): in his 80's HAD HEART ISSUES Mother Family Medical History: Dementia Additional Family Medical History / Comment(s): Mother in her 80's Sister(s) Family Medical History: CVA/TIA Additional Family Medical History / Comment(s): Patient has 2 sisters. One has history of stroke in 1 has no major medical problems that he is aware of. Patient does not have any brothers. Daughter(s) Family Medical History: No Reported History Son(s) Family Medical History: No Reported History Additional Family Medical History / Comment(s): Patient has 1 son and 2 daughters with no major medical problems. Medications and Allergies Home Medications Medication Instructions Recorded Confirmed Type Atorvastatin [Lipitor] 80 mg PO HS #30 tab 08/18/16 06/29/19 Rx Albuterol Sulfate [Proair Hfa] 1 - 2 puff INHALATION RT-Q6H PRN 11/07/17 06/29/19 History Aspirin 81 mg PO DAILY chew 12/11/17 06/29/19 Rx Ipratropium-Albuterol Nebulize 3 ml INHALATION RT-QID #120 10/18/18 06/29/19 Rx [Duoneb 0.5 mg-3 mg/3 ml Soln] ampul.neb glipiZIDE [Glucotrol] 10 mg PO DAILY 10/25/18 06/29/19 History Apixaban [Eliquis] 5 mg PO BID #60 tab 10/28/18 06/29/19 Rx Diltiazem HCl [Cardizem] 90 mg PO TID #90 tablet 10/28/18 06/29/19 Rx Budesonide [Pulmicort] 0.5 mg INHALATION RT-BID 06/29/19 06/29/19 History metFORMIN HCL 1,000 mg PO DAILY 06/29/19 06/29/19 History Allergies Allergy/AdvReac Type Severity Reaction Status Date / Time Penicillins Allergy Anaphylaxis Verified 06/29/19 13:56 sulfamethoxazole Allergy Rash/Hives Verified 06/29/19 13:56 [From Bactrim] trimethoprim [From Bactrim] Allergy Rash/Hives Verified 06/29/19 13:56 Physical Exam Vitals: Vital Signs Temp Pulse Resp BP Pulse Ox 06/29/19 16:38 149 H 24 97/51 98 06/29/19 16:00 146 H 21 112/99 99 06/29/19 15:25 133 H 27 H 120/85 99 06/29/19 15:00 146 H 29 H 95/64 96 06/29/19 14:43 176 H 30 H 97/72 93 L 06/29/19 14:00 176 H 29 H 128/93 92 L 06/29/19 13:30 179 H 28 H 129/99 93 L 06/29/19 13:15 98 06/29/19 13:05 102 H 06/29/19 13:04 75 27 H 120/75 94 L 06/29/19 12:30 146 H 28 H 134/89 95 06/29/19 11:59 99.8 F H 84 24 131/104 97 Intake and Output 06/29/19 06/29/19 06/29/19 06:59 14:59 22:59 Intake Total 6.917 Balance 6.917 Intake: Intake, IV Titration 6.917 Amount Diltiazem 125 mg In 6.917 Sodium Chloride 0.9% 100 ml @ 5 MG/HR 5 mls/hr IV .Q24H [facility] Rx#:[id number] Other: Weight 113.398 kg General Appearance no diaphoresis, able to tolerate the BiPAP at a full face mask. He is in mild degree of respiratory distress. Following commands and answering questions. Head exam was generally normal. There was no scleral icterus or corneal arcus. Mucous membranes were moist. Neck was supple and without jugular venous distension, thyromegaly, or carotid bruits. Carotids were easily palp Chest the patient has a bit of chest addition to diminished breath sound bilaterally along with prolongation of the expiratory phase of breathing and diffuse expiratory wheezes throughout the lung his bilaterally. Heart no right ventricular heave, no distant heart sounds, no s3 gallop, and the patient is irregular rate and rhythm. This is consistent with atrial fibrillation. GI bowel sounds: Bowel sounds present.Abdominal exam revealed normal bowel sounds. The abdomen was soft, non-tender, and without masses, organomegaly, or appreciable enlargement of the abdominal aorta. Extremities no cyanosis, no clubbing, edema, Neurologic no decreased mental status, no somnolence, no confusion Examination of the skin revealed no evidence of significant rashes, suspicious appearing nevi or other concerning lesions. There is increased erythema of the right lower extremity along with warmth and redness consistent with cellulitis on top of his chronic venous stasis involving the right lower extremity. Results - Laboratory Findings CBC and BMP: 06/30/19 04:37 06/30/19 04:36 ABG ABG pH 7.46 (7.35-7.45) H 06/29/19 14:55 ABG pCO2 39 mmHg (35-45) 06/29/19 14:55 ABG pO2 102 mmHg (83-108) 06/29/19 14:55 ABG O2 Saturation 98.4 % (94-97) H 06/29/19 14:55 PT/INR, D-dimer PT 10.9 sec (9.0-12.0) 06/29/19 12:00 INR 1.0 (<1.2) 06/29/19 12:00 Abnormal lab findings: Abnormal Labs 06/29/19 06/29/19 06/29/19 12:00 12:00 12:00 WBC 11.7 H Plt Count 146 L Neutrophils # 8.5 H ABG pH ABG HCO3 ABG Total CO2 ABG O2 Saturation Glucose 113 H Plasma Lactic Acid Ravinder Total Bilirubin 2.2 H Urine Ketones Trace H Ur Leukocyte Esterase Large H Urine WBC 15 H Urine Bacteria Rare H Urine Mucus Rare H 06/29/19 06/29/19 13:20 14:55 WBC Plt Count Neutrophils # ABG pH 7.46 H ABG HCO3 27 H ABG Total CO2 28 H ABG O2 Saturation 98.4 H Glucose Plasma Lactic Acid Ravinder 2.5 H* Total Bilirubin Urine Ketones Ur Leukocyte Esterase Urine WBC Urine Bacteria Urine Mucus - Diagnostic Findings Chest x-ray: image reviewed CT scan - chest: image reviewed Assessment and Plan Plan: Assessment 1 acute COPD exacerbation with secondary respiratory failure. The patient is cu rrently on BiPAP for respiratory support. Blood gases was noted. CT angiogram was noted. No evidence of any pulmonary embolism. Questionable limited infiltration of the lingular segment of the left lung. He presented emergency department quite short of breath and in A. fib which is a chronic findings along with a rapid ventricular response. 2 chronic obstructive lung disease severe COPD with an FEV1 of 28% of predicted. 3 obstructive sleep apnea syndrome The patient has an apnea popping index of 17 currently is is not utilizing CPAP therapy has been off treatment. 4 obesity 5 chronic atrial fibrillation with rapid ventricular response. Briefly encountered hypotension with Cardizem infusion and the patient was given 2.5 L of bolus of IV fluid in the ED. Echocardiogram from his most recent admission showed a preserved LV function without any significant valvular abnormalities. Patient has a preserved LV function with an ejection fraction of 50-55%. RV is mildly dilated. Right ventricular systolic pressures around 34 consistent with mild pulmonary hypertension related to his chronic lung disease. 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 13 mild lactic acidosis Plan Admit this patient to the intensive care unit. Continue BiPAP for respiratory support. Put the patient on DuoNeb nebulized treatment [id number]. Put the patient IV Solu-Medrol 60 mg every 6 hours. Empiric antibiotic coverage. IV fluids. Discontinue the Cardizem drip and put the patient on oral Lopressor. The patient or the on long-term articulation with Xarelto. Echocardiogram from his last admission was noted. We'll consult with cardiology. We'll continue to follow.
--- NOTE | 2019-06-30 08:35 | P.PN ---
Subjective Progress Note Date: 06/30/19 This is a 69-year-old male patient with well-known to me. The patient came into the emergency department today because of worsening shortness of breath. He was slightly confused, bronchospastic and wheezy and short of breath and he was also in atrial fibrillation with rapid ventricular response. Note that the patient has COPD which is severe with a baseline FEV1 of 28% of predicted. He has obstructive sleep apnea with an AHI of 17. He suffers from chronic atrial fibrillation and coronary artery disease. His last hospitalization was back in October 2018 when he came in for a similar presentation of shortness of breath and a flutter and he was given Cardizem drip for rate control. During this current admission, the patient was started on a Cardizem drip. He became hypotensive. The Cardizem drip was discontinued briefly. He was given a total of 2.5 L of normal saline bolus. He was placed on a BiPAP for respiratory support. A CT angiogram was done that showed no evidence of any pulmonary embolism. And this was done and FiO2 of 40% with a pressures of 10/5 cm of water. His white cell count is at 11.7. His lactic acid level is at 2.5. He has some erythema and swelling of the left lower extremity. Doppler of the lower extremity was done and the patient did not have any DVT. The patient is being considered for encephalitis of the left lower extremity. Currently he is comfortable on the BiPAP. Today's evaluation of 06/30/2019 the patient is feeling better compared to angy mckay. The patient is less short of breath. The patient is off the BiPAP and currently is on oxygen at night him 3 L per minute nasal cannula. The patient is not having any chest pain. His appetite is improved and currently his heart is under control as him being on a Cardizem drip at 10 mg an hour for rate control. He is also on antibiotic ventilation with Eliquis. Function is stable. Blood sugars are slightly elevated and the patient is currently off his gout controlled on metformin. No fever. No chills. Significant improvement in the right lower extremity cellulitis. No other specific complaints otherwise for now. Chest x-ray showing some developing infiltrate along the left lower lobe/lingular area. There is a concern of a limited pneumonia and that involved area. No significant leukocytosis. Cultures are still pending for now. Objective - Vital Signs Vital signs: Vital Signs Temp 98.6 F 06/30/19 04:00 Pulse 84 06/30/19 07:00 Resp 16 06/30/19 07:00 BP 82/61 06/30/19 07:00 Pulse Ox 94 L 06/30/19 07:00 Intake & Output 06/29/19 06/30/19 06/30/19 18:59 06:59 18:59 Intake Total 26.917 1137.5 20 Output Total 650 Balance 26.917 487.5 20 Weight 113.398 kg 125.4 kg Intake: IV 1040 20 .9 140 20 Sodium Chloride 0.9% 1, 900 000 ml @ 100 mls/hr IV . Q10H [facility] Rx#:[id number] Intake, IV Titration 26.917 97.5 Amount Diltiazem 125 mg In 97.5 Sodium Chloride 0.9% 100 ml @ 10 MG/HR 10 mls/hr IV .[id number] [facility] Rx#: [id number] Diltiazem 125 mg In 26.917 Sodium Chloride 0.9% 100 ml @ 5 MG/HR 5 mls/hr IV .Q24H [facility] Rx#:[id number] Output: Urine 650 Other: Voiding Method Urinal # Voids 0 0 - Exam General Appearance no diaphoresis, able be full sentences and the patient is less short of breath currently off liters of oxygen by nasal cannula. Head exam was generally normal. There was no scleral icterus or corneal arcus. Mucous membranes were moist. Neck was supple and without jugular venous distension, thyromegaly, or carotid bruits. Carotids were easily palp Chest the patient has a bit of chest addition to diminished breath sound bilaterally along with prolongation of the expiratory phase of breathing and diffuse expiratory wheezes throughout the lung his bilaterally. Also crackles in the left lung Heart no right ventricular heave, no distant heart sounds, no s3 gallop, and the patient is irregular rate and rhythm. This is consistent with atrial fibrillation. GI bowel sounds: Bowel sounds present.Abdominal exam revealed normal bowel sounds. The abdomen was soft, non-tender, and without masses, organomegaly, or appreciable enlargement of the abdominal aorta. Extremities no cyanosis, no clubbing, edema, Neurologic no decreased mental status, no somnolence, no confusion Examination of the skin revealed no evidence of significant rashes, suspicious appearing nevi or other concerning lesions. There is increased erythema of the right lower extremity along with warmth and redness consistent with cellulitis on top of his chronic venous stasis involving the right lower extremity. His evaluation in the right lower extremity subluxes improving. The patient is less erythematous and warm compared to yesterday. - Labs CBC & Chem 7: 06/30/19 04:37 06/30/19 04:36 Labs: Abnormal Lab Results - Last 24 Hours (Table) 06/29/19 06/29/19 06/29/19 Range/Units 12:00 12:00 12:00 WBC 11.7 H (3.8-10.6) k/uL RBC (4.30-5.90) m/uL MCV (80.0-100.0) fL Plt Count 146 L (150-450) k/uL Neutrophils # 8.5 H (1.3-7.7) k/uL Lymphocytes # (1.0-4.8) k/uL ABG pH (7.35-7.45) ABG HCO3 (21-25) mmol/L ABG Total CO2 (19-24) mmol/L ABG O2 Saturation (94-97) % Sodium (137-145) mmol/L Chloride (98-107) mmol/L Glucose 113 H (74-99) mg/dL POC Glucose (mg/dL) (75-99) mg/dL Plasma Lactic Acid Ravinder (0.7-2.0) mmol/L Calcium (8.4-10.2) mg/dL Total Bilirubin 2.2 H (0.2-1.3) mg/dL Urine Ketones Trace H (Negative) Ur Leukocyte Esterase Large H (Negative) Urine WBC 15 H (0-5) /hpf Urine Bacteria Rare H (None) /hpf Urine Mucus Rare H (None) /hpf 06/29/19 06/29/19 06/29/19 Range/Units 13:20 14:55 19:01 WBC (3.8-10.6) k/uL RBC (4.30-5.90) m/uL MCV (80.0-100.0) fL Plt Count (150-450) k/uL Neutrophils # (1.3-7.7) k/uL Lymphocytes # (1.0-4.8) k/uL ABG pH 7.46 H (7.35-7.45) ABG HCO3 27 H (21-25) mmol/L ABG Total CO2 28 H (19-24) mmol/L ABG O2 Saturation 98.4 H (94-97) % Sodium (137-145) mmol/L Chloride (98-107) mmol/L Glucose (74-99) mg/dL POC Glucose (mg/dL) 209 H (75-99) mg/dL Plasma Lactic Acid Ravinder 2.5 H* (0.7-2.0) mmol/L Calcium (8.4-10.2) mg/dL Total Bilirubin (0.2-1.3) mg/dL Urine Ketones (Negative) Ur Leukocyte Esterase (Negative) Urine WBC (0-5) /hpf Urine Bacteria (None) /hpf Urine Mucus (None) /hpf 06/29/19 06/30/19 06/30/19 Range/Units 20:51 04:36 04:37 WBC (3.8-10.6) k/uL RBC 4.15 L (4.30-5.90) m/uL MCV 102.8 H (80.0-100.0) fL Plt Count 122 L (150-450) k/uL Neutrophils # 8.8 H (1.3-7.7) k/uL Lymphocytes # 0.5 L (1.0-4.8) k/uL ABG pH (7.35-7.45) ABG HCO3 (21-25) mmol/L ABG Total CO2 (19-24) mmol/L ABG O2 Saturation (94-97) % Sodium 136 L (137-145) mmol/L Chloride 108 H (98-107) mmol/L Glucose 225 H (74-99) mg/dL POC Glucose (mg/dL) 245 H (75-99) mg/dL Plasma Lactic Acid Ravinder (0.7-2.0) mmol/L Calcium 8.3 L (8.4-10.2) mg/dL Total Bilirubin (0.2-1.3) mg/dL Urine Ketones (Negative) Ur Leukocyte Esterase (Negative) Urine WBC (0-5) /hpf Urine Bacteria (None) /hpf Urine Mucus (None) /hpf 06/30/19 Range/Units 06:31 WBC (3.8-10.6) k/uL RBC (4.30-5.90) m/uL MCV (80.0-100.0) fL Plt Count (150-450) k/uL Neutrophils # (1.3-7.7) k/uL Lymphocytes # (1.0-4.8) k/uL ABG pH (7.35-7.45) ABG HCO3 (21-25) mmol/L ABG Total CO2 (19-24) mmol/L ABG O2 Saturation (94-97) % Sodium (137-145) mmol/L Chloride (98-107) mmol/L Glucose (74-99) mg/dL POC Glucose (mg/dL) 217 H (75-99) mg/dL Plasma Lactic Acid Ravinder (0.7-2.0) mmol/L Calcium (8.4-10.2) mg/dL Total Bilirubin (0.2-1.3) mg/dL Urine Ketones (Negative) Ur Leukocyte Esterase (Negative) Urine WBC (0-5) /hpf Urine Bacteria (None) /hpf Urine Mucus (None) /hpf Microbiology - Last 24 Hours (Table) 06/29/19 12:00 Urine Culture - Preliminary Urine,Voided Assessment and Plan Plan: Assessment 1 acute COPD exacerbation with secondary respiratory failure. The patient is currently on BiPAP for respiratory support. Blood gases was noted. CT angiogram was noted. No evidence of any pulmonary embolism. Questionable limited infiltration of the lingular segment of the left lung and the right lower extremity cellulitis.. He presented emergency department quite short of breath and in A. fib which is a chronic findings along with a rapid ventricular response. Heart rate is under much better control while on Cardizem drip at 10 mg an hour. 2 chronic obstructive lung disease severe COPD with an FEV1 of 28% of predicted. 3 obstructive sleep apnea syndrome The patient has an apnea popping index of 17 currently is is not utilizing CPAP therapy has been off treatment. 4 obesity 5 chronic atrial fibrillation with rapid ventricular response. Briefly encoun tered hypotension with Cardizem infusion and the patient was given 2.5 L of bolus of IV fluid in the ED. Echocardiogram from his most recent admission showed a preserved LV function without any significant valvular abnormalities. Patient has a preserved LV function with an ejection fraction of 50-55%. RV is mildly dilated. Right ventricular systolic pressures around 34 consistent with mild pulmonary hypertension related to his chronic lung disease. 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 13 mild lactic acidosis approving Plan Discontinue the Cardizem drip and put the patient on Cardizem 60 mg by mouth 3 times a day. Continue same antibiotic coverage to chest x-ray from today was noted. There is a lingular infiltrate. The right lower extremities and was also improving. Overall pulmonary status is stable and the patient is less short of breath. We'll continue to follow. We'll make further recommendations based on his progress. He'll be staying in ICU for now.
[2019-06-30] MEDS: PANTOPRAZOLE 40 MG/10 ML VIAL IV SCH (09:38)
[2019-06-30] MEDS: APIXABAN 5 MG TAB PO SCH ×2 (09:38→21:02)
[2019-06-30] MEDS: ASPIRIN 81 MG PO SCH (09:39)
[2019-06-30] MEDS: METOPROLOL TARTRATE 25 MG TAB PO SCH ×2 (09:39→21:02)
[2019-06-30] MEDS: glipiZIDE 10 MG TAB PO SCH (09:39)
[2019-06-30] MEDS: DILTIAZEM ORAL 60 MG TAB PO SCH ×3 (09:39→21:03)
--- NOTE | 2019-06-30 10:41 | CONS ---
CONSULTATION CHIEF COMPLAINT: Atrial fibrillation with rapid ventricular rate. Laron is a 69-year-old gentleman with history of chronic persistent atrial fibrillation, coronary artery disease, COPD, sleep apnea, peripheral vascular disease, who is admitted to hospital with shortness of breath and he had mild confusion at the same time. At the time of his initial presentation, he was found to be in atrial fibrillation with rapid ventricular rate. Also had mildly elevated white cell count and has mild elevation in lactic acid with some cellulitis involving the right lower extremity and mild swelling. The patient underwent a CT scan of the chest that was negative for pulmonary embolism. He was started on intravenous Cardizem following which the heart rate is better controlled. At the time of my evaluation, patient appears awake, alert, and his symptoms have improved. A chest x-ray shows that he has patchy left basilar infiltrate and labs shows that his creatinine is normal. Hemoglobin is 14. I am going to stop the IV Cardizem, continue the Eliquis that he is on, obtain a 2D echo to document his LV function and continue the Lopressor and resume Cardizem at 60 p.o. t.i.d. PAST MEDICAL HISTORY: Past medical history is significant for persistent atrial fibrillation, COPD, hypertension, dyslipidemia, coronary artery disease and diabetes. MEDICATIONS: Medications at home include Pulmicort, metformin, glipizide, Cardizem, Lipitor, aspirin, Eliquis, and albuterol. ALLERGIES: Allergic to PENICILLIN, BACTRIM. FAMILY HISTORY: Family history is negative for premature coronary artery disease. SOCIAL HISTORY: Social history is negative for current smoking, EtOH abuse or drug abuse. REVIEW OF SYSTEMS: HEENT is unremarkable. CARDIAC: As described above. RESPIRATORY: As described above. GI: Negative. GENITOURINARY: Negative. ALLERGY/IMMUNOLOGY: Negative. MUSCULOSKELETAL: Significant for arthritis. PSYCHOSOCIAL: Negative. ENDOCRINE: Negative. DERM: Negative. CONSTITUTIONAL: Negative. ONCOLOGICAL: Negative. Rest of the system review is not relevant. PHYSICAL EXAMINATION: On exam, comfortable at rest. Heart rate is 84 beats per minute. Blood pressure is 82/60. Respiratory rate is 16. There is no jugular venous distention. Chest exam reveals good air entry bilaterally. Heart exam reveals first and second heart sounds. No gallop. Examination of extremities reveals cellulitis over the leg with mild edema. Foot pulses are intact. LABS: Labs are as described above. EKG shows atrial fibrillation with rapid ventricular rate. ASSESSMENT: 1. Persistent atrial fibrillation with poorly controlled ventricular rate. 2. Cellulitis with possible sepsis. 3. Hypertension. 4. Dyslipidemia. 5. Diabetes. PLAN: Patient will continue with current medications. Stop the Cardizem. Transfer the patient out to [facility]. LANDY / DANIELLA: [id number] /
[2019-06-30 12:11] LABS: Glucose,Whole Blood 242 mg/dL (75-99)
[2019-06-30] MEDS ORDERED: LEVOFLOXACIN 750MG-D5W PMX 750 MG in DEXTROSE/WATER 1 150ML.BAG IVPB SCH (14:00)
[2019-06-30 17:09] LABS: Glucose,Whole Blood 250 mg/dL (75-99)
[2019-06-30] MEDS ORDERED: VANCOMYCIN IV PER PHARMACY 1 EACH MISC MISCELLANE PRN (20:30)
[2019-06-30] MEDS ORDERED: VANCOMYCIN 1,750 MG in SODIUM CHLORIDE 0.9% 500 ML 500 ML IVPB SCH (20:30)
[2019-06-30 20:44] LABS: Glucose,Whole Blood 183 mg/dL (75-99)
[2019-06-30] MEDS: ATORVASTATIN 80 MG TAB PO SCH (21:02)
[2019-06-30] MEDS: VANCOMYCIN 1,750 MG in SODIUM CHLORIDE 0.9% 500 ML 500 ML IVPB SCH (21:38)
[2019-07-01 04:58] LABS: Basophils % (A) 0 %; Eosinophils # (A) 0.1 k/uL (0-0.7); Eosinophils % (A) 1 %; HCT 42.8 % (39.0-53.0); HGB 14.5 gm/dL (13.0-17.5); Lymphocytes # (A) 0.9 k/uL (1.0-4.8); Lymphocytes % (A) 8 %; MCH 33.9 pg (25.0-35.0); MCHC 33.9 g/dL (31.0-37.0); MCV 99.9 fL (80.0-100.0); Mean Platelet Volume 6.6; Monocytes # (A) 0.4 k/uL (0-1.0); Monocytes % (A) 4 %; Neutrophils # (A) 9.4 k/uL (1.3-7.7); Neutrophils % (A) 86 %; Platelet Count 119 k/uL (150-450); RBC 4.28 m/uL (4.30-5.90); RDW 13.8 % (11.5-15.5); WBC 10.9 k/uL (3.8-10.6)
[2019-07-01] MEDS: VANCOMYCIN 1,750 MG in SODIUM CHLORIDE 0.9% 500 ML 500 ML IVPB SCH ×3 (05:02→22:20)
[2019-07-01 05:11] LABS: African American GFR (CKD) >90 (>60 ml/min/1.73 sqM); Anion Gap 7 mmol/L; Blood Urea Nitrogen 21 mg/dL (9-20); Calcium 8.8 mg/dL (8.4-10.2); Carbon Dioxide 23 mmol/L (22-30); Chloride 108 mmol/L (98-107); Glucose 180 mg/dL (74-99); Non-African American GFR(CKD) >90 (>60 ml/min/1.73 sqM); Potassium 4.7 mmol/L (3.5-5.1); Sodium 138 mmol/L (137-145)
[2019-07-01 06:56] LABS: Glucose,Whole Blood 157 mg/dL (75-99)
[2019-07-01] MEDS: glipiZIDE 10 MG TAB PO SCH (06:59)
[2019-07-01] MEDS: INSULIN ASPART (NovoLOG) 100 UNIT/ML VIAL SQ SCH ×4 (06:59→20:32)
[2019-07-01] MEDS: IPRATROPIUM-ALBUTEROL 3 ML NEB INHALATION SCH ×4 (07:32→19:15)
[2019-07-01] MEDS: BUDESONIDE 0.5 MG/2 ML NEBU INHALATION SCH ×2 (07:32→19:15)
--- NOTE | 2019-07-01 08:19 | XR ---
EXAMINATION TYPE: XR chest 1V portable DATE OF EXAM: 07/01/2019 HISTORY: Shortness of breath. COMPARISON: 06/30/2019 TECHNIQUE: Single view of the chest is submitted. FINDINGS: Demonstrated are scattered senescent parenchymal change. There is persistent left lower lobe infiltrate and/or atelectasis. No significant change noted. The heart is stable. Hilar and mediastinal structures are within normal limits. Degenerative changes are seen of the dorsal spine. IMPRESSION: 1. There is persistent left lower lobe infiltrate and/or atelectasis. No significant change noted.
[2019-07-01] MEDS: metFORMIN 500 MG TAB PO SCH (09:24)
[2019-07-01] MEDS: ASPIRIN 81 MG PO SCH (09:26)
[2019-07-01] MEDS: METOPROLOL TARTRATE 25 MG TAB PO SCH ×2 (09:26→19:59)
[2019-07-01] MEDS: APIXABAN 5 MG TAB PO SCH ×2 (09:26→19:59)
[2019-07-01] MEDS: PANTOPRAZOLE 40 MG/10 ML VIAL IV SCH (09:26)
[2019-07-01] MEDS: DILTIAZEM ORAL 60 MG TAB PO SCH ×3 (09:26→19:59)
[2019-07-01] MEDS ORDERED: FUROSEMIDE 10 MG/ML 4 ML VIAL IV STA (11:41)
[2019-07-01 12:14] LABS: Glucose,Whole Blood 86 mg/dL (75-99)
[2019-07-01] MEDS: methylPREDNISolone SOD SUCCI 40 MG/ML 1 ML VIAL IV SCH ×3 (13:02→23:52)
[2019-07-01] MEDS ORDERED: DIGOXIN 250 MCG/ML 2 ML AMP IVP ONE (13:15)
--- NOTE | 2019-07-01 13:41 | PN ---
PROGRESS NOTE Laron is admitted to the hospital with sepsis, has some cellulitis over the right leg, which has improved. Continues to have cough and shortness of breath and remains in atrial fibrillation with intermittent episodes of rapid ventricular rate. He is on Cardizem 60 t.i.d. and metoprolol 25 b.i.d. and is on Eliquis. On exam today, heart rate is around 95 to 110 beats per minute. Blood pressure is 101/67. Respiratory rate is 18. Chest exam reveals good air entry bilaterally. Heart exam reveals first and second heart sounds, irregular rhythm and a systolic murmur at the left lower sternal border. Abdomen is soft. Examination of extremities did not reveal any edema. Peripheral pulses are felt. LABS: Labs show that the hemoglobin is 14.5, potassium is 4.7, creatinine is 0.7. ASSESSMENT: Chronic persistent atrial fibrillation with poorly controlled ventricular rate. PLAN: I am going to start the patient on digoxin. MMODL / IJN: [id number] /
[2019-07-01] MEDS: CEFEPIME 2 GM in SODIUM CHLORIDE 0.9% 100 ML IVPB SCH ×2 (14:08→20:00)
[2019-07-01] MEDS: LEVOFLOXACIN 750 MG TAB PO SCH (14:15)
[2019-07-01] MEDS: DIGOXIN 250 MCG TAB PO SCH (14:18)
--- NOTE | 2019-07-01 14:40 | P.HPIM ---
History of Present Illness H&P Date: 06/30/19 Chief Complaint: Acute respiratory failure, COPD exacerbation, A. fib with RVR, cellulitis o 69-year-old morbidly obese male one of Dr. Holland patient was known to have history of A. fib with RVR, coronary disease, post myocardial infarction, obstructive sleep apnea, vascular disorders, severe COPD with FEV1 of 20% only, recurrence alive slower 70, hyperglycemia and CAD post PCI and stent placement in the past who was the hospital last time few month ago for A. fib with RVR was not well-controlled for long time was supposed to have ablation and see Dr Sandoval at the time. He presented to [facility] department in the evening of 06/29/2019 with worsening dyspnea and shortness of breath mild confusion severe wheezes with cough and significant palpitation pulse rate running over 160 bpm time. According to him and his started as an increased cellulitis and edema of the lower extremity worse in the right leg than the left side with low-grade temperature the time his symptoms become much worse and developed to have significant spasm of the bronchial airway with worsening wheezes and significant dyspnea with hypoxia and severe palpitation and arrhythmia. Patient was seen in [facility] started on Cardizem drip blood pressure dropped down significantly was taking off Cardizem drip and started him 0.9 normal saline bolus his blood pressure had improved with his elevated white blood cell spasm of the airway and COPD exacerbation was placed on BiPAP consult cardiology and pulmonary patient pulse rate has improved with metoprolol and Cardizem oral he is still on anticoagulation at this time patient was started on vancomycin and Levaquin. Review of Systems CONSTITUTIONAL: Morbidly obese and mild respiratory distress. EYES: No icterus sclerae, no conjunctivitis. EARS, NOSE, MOUTH, THROAT, and FACE: No sore throat, lymphadenopathy, carotid bruits or deformity. RESPIRATORY: Positive shortness of breath cough wheezes with significant bronchospasm. CARDIOVASCULAR: Positive shortness of breath palpitation PND orthopnea no angina. GASTROINTESTINAL: No Abd pain, Nausea or vomiting, no Diarrhea or constipation, No GI Bleed, no distention or masses. GENITOURINARY: Negative for Hematuria or UTI, no kidney stones. INTEGUMENT/BREAST: Cellulitis of the lower extremity with worsening edema of the right side. HEMATOLOGIC/LYMPHATIC: Negative for bleed or purpura. MUSCULOSKELTAL: Worsening pain and discomfort of the lower some especially in the right leg. NEURLOGICAL: No LOC, Sz or syncope, blurred vision dizziness or abnormality.. BEHAVIORAL/PSYCH: Negative. ENDOCRINE: Negative. Past Medical History Past Medical History: Atrial Fibrillation, Coronary Artery Disease (CAD), COPD, GERD/Reflux, Hyperlipidemia, Myocardial Infarction ([place]), Osteoarthritis (OA), Sleep Apnea/CPAP/BIPAP, Vascular Disorder Additional Past Medical History / Comment(s): COPD with a baseline FEV1 of 20% of predicted, obstructive sleep apnea moderate severe with an AHI of 17, chronic atrial fibrillation, coronary artery disease, obesity with a BMI of 38.7, hyperlipidemia, coronary artery disease, abdominal aortic aneurysm, history of right lower extremity phlebitis, history of right wrist fracture, previous history of myocardial infarction Last Myocardial Infarction Date:: 08/2016 History of Any Multi-Drug Resistant Organisms: MRSA Date of last positivie culture/infection: 2007 MDRO Source:: leg Past Surgical History: Appendectomy, Heart Catheterization, Heart Catheterization With Stent, Tonsillectomy Additional Past Surgical History / Comment(s): Colonoscopy, R leg vein stripping. Past Anesthesia/Blood Transfusion Reactions: No Reported Reaction Date of Last Stent Placement:: 09/02/16 Past Psychological History: No Psychological Hx Reported Smoking Status: Former smoker Past Alcohol Use History: Rare Past Drug Use History: None Reported - Past Family History Father Family Medical History: No Reported History Additional Family Medical History / Comment(s): in his 80's HAD HEART ISSUES Mother Family Medical History: Dementia Additional Family Medical History / Comment(s): Mother in her 80's Sister(s) Family Medical History: CVA/TIA Additional Family Medical History / Comment(s): Patient has 2 sisters. One has history of stroke in 1 has no major medical problems that he is aware of. Patient does not have any brothers. Daughter(s) Family Medical History: No Reported History Son(s) Family Medical History: No Reported History Additional Family Medical History / Comment(s): Patient has 1 son and 2 daughters with no major medical problems. Medications and Allergies Home Medications Medication Instructions Recorded Confirmed Type Atorvastatin [Lipitor] 80 mg PO HS #30 tab 08/18/16 06/29/19 Rx Albuterol Sulfate [Proair Hfa] 1 - 2 puff INHALATION RT-Q6H PRN 11/07/17 06/29/19 History Aspirin 81 mg PO DAILY chew 12/11/17 06/29/19 Rx Ipratropium-Albuterol Nebulize 3 ml INHALATION RT-QID #120 10/18/18 06/29/19 Rx [Duoneb 0.5 mg-3 mg/3 ml Soln] ampul.neb glipiZIDE [Glucotrol] 10 mg PO DAILY 10/25/18 06/29/19 History Apixaban [Eliquis] 5 mg PO BID #60 tab 10/28/18 06/29/19 Rx Diltiazem HCl [Cardizem] 90 mg PO TID #90 tablet 10/28/18 06/29/19 Rx Budesonide [Pulmicort] 0.5 mg INHALATION RT-BID 06/29/19 06/29/19 History metFORMIN HCL 1,000 mg PO DAILY 06/29/19 06/29/19 History Allergies Allergy/AdvReac Type Severity Reaction Status Date / Time Penicillins Allergy Anaphylaxis Verified 06/29/19 13:56 sulfamethoxazole Allergy Rash/Hives Verified 06/29/19 13:56 [From Bactrim] trimethoprim [From Bactrim] Allergy Rash/Hives Verified 06/29/19 13:56 Physical Exam Vitals: Vital Signs Temp Pulse Resp BP Pulse Ox 06/30/19 11:17 92 06/30/19 11:00 87 18 104/76 96 06/30/19 10:00 101 H 14 112/66 95 06/30/19 09:00 79 13 120/92 95 06/30/19 08:00 98 15 109/76 94 L 06/30/19 07:00 84 16 82/61 94 L 06/30/19 06:09 89 06/30/19 06:00 73 20 96/59 99 06/30/19 05:46 85 06/30/19 05:00 82 21 96/60 95 06/30/19 04:00 98.6 F 80 16 95/50 95 06/30/19 03:00 78 16 132/88 96 06/30/19 02:00 81 15 106/80 97 06/30/19 01:00 79 15 109/81 97 06/30/19 00:00 98.9 F 80 23 122/83 97 06/29/19 23:00 73 17 123/88 94 L 06/29/19 22:00 90 26 H 123/74 94 L 06/29/19 21:00 110 H 24 127/76 96 06/29/19 20:09 114 H 06/29/19 20:00 99 F 124 H 23 100/89 97 06/29/19 19:58 118 H 06/29/19 19:03 99.1 F 144 H 16 119/68 96 06/29/19 18:45 99.0 F 122 H 26 H 101/56 97 06/29/19 18:30 99.0 F 138 H 26 H 108/65 96 06/29/19 18:00 99.0 F 124 H 26 H 122/69 97 06/29/19 17:45 165 H 28 H 101/86 98 06/29/19 17:30 141 H 26 H 91/56 96 06/29/19 17:15 152 H 26 H 90/65 98 06/29/19 17:00 98.9 F 172 H 21 82/65 98 06/29/19 16:45 147 H 26 H 66/43 99 06/29/19 16:38 149 H 24 97/51 98 06/29/19 16:00 146 H 21 112/99 99 06/29/19 15:25 133 H 27 H 120/85 99 06/29/19 15:00 146 H 29 H 95/64 96 06/29/19 14:43 176 H 30 H 97/72 93 L 06/29/19 14:00 176 H 29 H 128/93 92 L Intake and Output 06/29/19 06/30/19 06/30/19 22:59 06:59 14:59 Intake Total 426.917 737.5 60 Output Total 150 500 250 Balance 276.917 237.5 -190 Intake: IV 400 640 60 .9 140 60 Sodium Chloride 0.9% 1, 400 500 000 ml @ 100 mls/hr IV . Q10H [facility] Rx#:[id number] Intake, IV Titration 26.917 97.5 Amount Diltiazem 125 mg In 97.5 Sodium Chloride 0.9% 100 ml @ 10 MG/HR 10 mls/hr IV .[id number] [facility] Rx#: [id number] Diltiazem 125 mg In 26.917 Sodium Chloride 0.9% 100 ml @ 5 MG/HR 5 mls/hr IV .Q24H [facility] Rx#:[id number] Output: Urine 150 500 250 Other: Voiding Method Urinal Urinal Urinal # Voids 0 0 0 Weight 125.4 kg General Appearance: Alert, cooperative, mild distress, Neck HEENT: Supple, no lymphadenopathy, no thyroid enlargement, no carotid bruits. Lungs: Decrease expansion with deep inspiration positive fine rhonchi positive mild crackles in the bases positive Monospot is breath expected wheezes. Chest Wall: Decrease expansion with deep inspiration no tenderness mild costochondral discomfort. Heart: Irregular rhythm and rate is soreness to positive S3 positive ejection murmur with no gallop. Back: Symmetric, no curvature, ROM normal, no CVA tenderness. Abdomen: Soft, non-tender, bowel sounds active all four quadrants, no masses, no organomegaly. Extremities: Significantly edema and discomfort in both legs worse in the right than the left side especially in the lower part around the ankle with pitting edema and mild lymphedema as well with chronic vascular cellulitis. Pulses: 2+ and symmetric. Skin: Skin color, texture, tugor normal, no rashes or lesions. Neurologic: Alert oriented x3 cranial nerves II through XII intact, no motor deficit, no abnormal balance or gait. Results CBC & Chem 7: 07/01/19 04:41 07/01/19 04:38 Labs: Abnormal Lab Results - Last 24 Hours (Table) 06/29/19 06/29/19 06/29/19 Range/Units 12:00 14:55 19:01 RBC (4.30-5.90) m/uL MCV (80.0-100.0) fL Plt Count (150-450) k/uL Neutrophils # (1.3-7.7) k/uL Lymphocytes # (1.0-4.8) k/uL ABG pH 7.46 H (7.35-7.45) ABG HCO3 27 H (21-25) mmol/L ABG Total CO2 28 H (19-24) mmol/L ABG O2 Saturation 98.4 H (94-97) % Sodium (137-145) mmol/L Chloride (98-107) mmol/L Glucose (74-99) mg/dL POC Glucose (mg/dL) 209 H (75-99) mg/dL Calcium (8.4-10.2) mg/dL Urine WBC 15 H (0-5) /hpf 06/29/19 06/30/19 06/30/19 Range/Units 20:51 04:36 04:37 RBC 4.15 L (4.30-5.90) m/uL MCV 102.8 H (80.0-100.0) fL Plt Count 122 L (150-450) k/uL Neutrophils # 8.8 H (1.3-7.7) k/uL Lymphocytes # 0.5 L (1.0-4.8) k/uL ABG pH (7.35-7.45) ABG HCO3 (21-25) mmol/L ABG Total CO2 (19-24) mmol/L ABG O2 Saturation (94-97) % Sodium 136 L (137-145) mmol/L Chloride 108 H (98-107) mmol/L Glucose 225 H (74-99) mg/dL POC Glucose (mg/dL) 245 H (75-99) mg/dL Calcium 8.3 L (8.4-10.2) mg/dL Urine WBC (0-5) /hpf 06/30/19 06/30/19 Range/Units 06:31 12:09 RBC (4.30-5.90) m/uL MCV (80.0-100.0) fL Plt Count (150-450) k/uL Neutrophils # (1.3-7.7) k/uL Lymphocytes # (1.0-4.8) k/uL ABG pH (7.35-7.45) ABG HCO3 (21-25) mmol/L ABG Total CO2 (19-24) mmol/L ABG O2 Saturation (94-97) % Sodium (137-145) mmol/L Chloride (98-107) mmol/L Glucose (74-99) mg/dL POC Glucose (mg/dL) 217 H 242 H (75-99) mg/dL Calcium (8.4-10.2) mg/dL Urine WBC (0-5) /hpf Microbiology - Last 24 Hours (Table) 06/29/19 12:00 Urine Culture - Preliminary Urine,Voided Thrombosis Risk Factor Assmnt - DVT/VTE Prophylaxis DVT/VTE Prophylaxis: Pharmacologic Prophylaxis ordered, Mechanical Prophylaxis ordered - Choose All That Apply Any of the Below Risk Factors Present?: Yes Each Factor Represents 1 point: Abnormal pulmonary function (COPD), Acute [place], Obesity (BMI >25), Sepsis (< 1month), Swollen legs (current) Other Risk Factors: Yes Each Risk Factor Represents 2 Points: Age 61-74 years Thrombosis Risk Factor Assessment Total Risk Factor Score: 7 Thrombosis Risk Factor Assessment Level: High Risk Assessment and Plan Plan: 1 acute respiratory failure: Combination of A. fib with RVR, COPD exacerbation, early pneumonitis and severe bronchitis with mild fluid overload, will continue BiPAP continue O2 and updraft treatment consult pulmonary. 2 COPD excessive patient: Causing chronic on acute respiratory failure, patient will continue on BiPAP continue steroids along with nebulizer treatment on regular basis. 4 A. fib with RVR: Pulse rate was not control on admission on Cardizem will continue and increase the dose of Cardizem if able to tolerate also continue patient on beta giovani we'll consult cardiology continue anticoagulation. His ejection fraction with the last echocardiogram was preserved with EF of 50-55 percentile. 5 acute cellulitis of the lower extremity with chronic phlebitis, patient remain on anticoagulation but no sign of DVT on Doppler patient will be continue on Vanco and Rocephin eventually can benefit from Unasyn or Keflex on the long run if not ALLERGIC to penicillin. 6 severe bronchitis with early pneumonitis: Will be on antibiotics currently repeat chest x-ray in the next 2 days. In the meanwhile continue antibiotics and see if there is any positive culture. 7 obstructive sleep apnea: Patient will be on BiPAP for now but should use CPAP as soon as he is able to. 8 hyperlipidemia: On atorvastatin 80 mg daily. 9 CAD post angioplasty and stent placement patient seen cardiology is still on secondary prevention. 10 type 2 diabetes: On the glipizide and metformin continue Accu-Chek sliding scales coverage and titrate insulin if needed specially been on steroid. 11 hypertension: Was on diltiazem previously watch for any low blood pressure. 12 DVT prophylaxis: Remain on Eliquis . 13 GI prophylaxis: Patient is on Pepcid 20 mg daily. CODE STATUS: Full code. Admit patient to inpatient status for more than 2 nights.
--- NOTE | 2019-07-01 14:44 | P.PN ---
Subjective Progress Note Date: 07/01/19 Principal diagnosis: Acute respiratory failure, COPD exacerbation, A. fib with RVR, cellulitis o 69-year-old morbidly obese male one of Dr. Holland patient was known to have history of A. fib with RVR, coronary disease, post myocardial infarction, obstructive sleep apnea, vascular disorders, severe COPD with FEV1 of 20% only, recurrence alive slower 70, hyperglycemia and CAD post PCI and stent placement in the past who was the hospital last time few month ago for A. fib with RVR was not well-controlled for long time was supposed to have ablation and see Dr Sandoval at the time. He presented to [facility] department in the evening of 06/29/2019 with worsening dyspnea and shortness of breath mild confusion severe wheezes with cough and significant palpitation pulse rate running over 160 bpm time. According to him and his started as an increased cellulitis and edema of the lower extremity worse in the right leg than the left side with low-grade temperature the time his symptoms become much worse and developed to have significant spasm of the bronchial airway with worsening wheezes and significant dyspnea with hypoxia and severe palpitation and arrhythmia. [facility] drip blood pressure dropped down significantly was taking off Cardizem drip and started him 0.9 normal saline bolus his blood pressure had improved with his elevated white blood cell spasm of the airway and COPD exacerbation was placed on BiPAP consult cardiology and pulmonary patient pulse rate has improved with metoprolol and Cardizem oral he is still on anticoagulation at this time patient was started on vancomycin and Levaquin. 07/01: Patient had significant episode of A. fib with RVR pulse rate was running very high today had responded to medical management afterward. Patient is off BiPAP he still having bronchospasm also had fluid overload we will do 1 dose of Lasix 40 mg daily today. Patient remain on vancomycin and still on Levaquin for cellulitis and bilateral pneumonitis. Still on high dose of steroid with good response compared to yesterday. Objective - Vital Signs Vital signs: Vital Signs Temp 97.9 F 07/01/19 12:00 Pulse 103 H 07/01/19 14:00 Resp 22 07/01/19 14:00 BP 121/67 07/01/19 14:00 Pulse Ox 94 L 07/01/19 14:00 Intake & Output 06/30/19 07/01/19 07/01/19 18:59 06:59 18:59 Intake Total 60 1380 1170 Output Total 750 450 255 Balance -690 930 915 Weight 126.1 kg Intake: IV 60 1080 1140 .9 60 80 140 Vancomycin 1,750 mg In 1000 1000 Sodium Chloride 0.9% 500 ml 500 ml @ 167 mls/hr IVPB Q8H [facility] Rx#: [id number] Oral 300 30 Output: Urine 750 450 255 Other: Voiding Method Urinal Urinal Urinal # Voids 0 0 General Appearance: Alert, cooperative, mild distress, Neck HEENT: Supple, no lymphadenopathy, no thyroid enlargement, no carotid bruits. Lungs: Decrease expansion with deep inspiration positive fine rhonchi positive mild crackles in the bases positive Monospot is breath expected wheezes. Chest Wall: Decrease expansion with deep inspiration no tenderness mild costochondral discomfort. Heart: Irregular rhythm and rate is soreness to positive S3 positive ejection murmur with no gallop. Back: Symmetric, no curvature, ROM normal, no CVA tenderness. Abdomen: Soft, non-tender, bowel sounds active all four quadrants, no masses, no organomegaly. Extremities: Significantly edema and discomfort in both legs worse in the right than the left side especially in the lower part around the ankle with pitting edema and mild lymphedema as well with chronic vascular cellulitis. Pulses: 2+ and symmetric. Skin: Skin color, texture, tugor normal, no rashes or lesions. Neurologic: Alert oriented x3 cranial nerves II through XII intact, no motor deficit, no abnormal balance or gait. - Exam Review of Systems CONSTITUTIONAL: Morbidly obese and mild respiratory distress. EYES: No icterus sclerae, no conjunctivitis. EARS, NOSE, MOUTH, THROAT, and FACE: No sore throat, lymphadenopathy, carotid bruits or deformity. RESPIRATORY: Positive shortness of breath cough wheezes with significant bronchospasm. CARDIOVASCULAR: Positive shortness of breath palpitation PND orthopnea no angina. GASTROINTESTINAL: No Abd pain, Nausea or vomiting, no Diarrhea or constipation, No GI Bleed, no distention or masses. GENITOURINARY: Negative for Hematuria or UTI, no kidney stones. INTEGUMENT/BREAST: Cellulitis of the lower extremity with worsening edema of the right side. HEMATOLOGIC/LYMPHATIC: Negative for bleed or purpura. MUSCULOSKELTAL: Worsening pain and discomfort of the lower some especially in the right leg. NEURLOGICAL: No LOC, Sz or syncope, blurred vision dizziness or abnormality.. BEHAVIORAL/PSYCH: Negative. ENDOCRINE: Negative. - Labs CBC & Chem 7: 07/01/19 04:41 07/01/19 04:38 Labs: Abnormal Lab Results - Last 24 Hours (Table) 06/30/19 06/30/19 07/01/19 Range/Units 17:07 20:43 04:38 WBC (3.8-10.6) k/uL RBC (4.30-5.90) m/uL Plt Count (150-450) k/uL Neutrophils # (1.3-7.7) k/uL Lymphocytes # (1.0-4.8) k/uL Chloride 108 H (98-107) mmol/L BUN 21 H (9-20) mg/dL Glucose 180 H (74-99) mg/dL POC Glucose (mg/dL) 250 H 183 H (75-99) mg/dL 07/01/19 07/01/19 Range/Units 04:41 06:44 WBC 10.9 H (3.8-10.6) k/uL RBC 4.28 L (4.30-5.90) m/uL Plt Count 119 L (150-450) k/uL Neutrophils # 9.4 H (1.3-7.7) k/uL Lymphocytes # 0.9 L (1.0-4.8) k/uL Chloride (98-107) mmol/L BUN (9-20) mg/dL Glucose (74-99) mg/dL POC Glucose (mg/dL) 157 H (75-99) mg/dL Microbiology - Last 24 Hours (Table) 06/30/19 15:04 Gram Stain - Preliminary Sputum Sputum Culture - Preliminary 06/29/19 12:00 Urine Culture - Preliminary Urine,Voided Group D Enterococcus 06/29/19 13:20 Blood Culture - Preliminary Blood No Growth after 24 hours Assessment and Plan Plan: 1 acute respiratory failure: Combination of A. fib with RVR, COPD exacerbation, early pneumonitis and severe bronchitis with mild fluid overload, will continue BiPAP continue O2 and updraft treatment consult pulmonary. 2 COPD exacerbation: Causing chronic on acute respiratory failure, patient will continue on BiPAP continue steroids along with nebulizer treatment on regular basis. 4 A. fib with RVR: Still on metoprolol and diltiazem no amiodarone or any other agent patient had responded well to it hopefully with the treatment for infection and taking care of hypoxia might improve A. fib. 5 acute cellulitis of the lower extremity: Remain on vancomycin and Levaquin. 6 severe bronchitis with early pneumonitis: Continue antibiotic repeat chest x- ray tomorrow. 7 obstructive sleep apnea: Patient will be on BiPAP for now but should use CPAP as soon as he is able to. 8 hyperlipidemia: On atorvastatin 80 mg daily. 9 CAD post angioplasty and stent placement patient seen cardiology is still on secondary prevention. 10 type 2 diabetes: On the glipizide and metformin continue Accu-Chek sliding scales coverage and titrate insulin if needed specially been on steroid. 11 hypertension: Was on diltiazem previously watch for any low blood pressure.
--- NOTE | 2019-07-01 16:07 | P.PN ---
Subjective Progress Note Date: 07/01/19 This is a 69-year-old male patient with well-known to me. The patient came into the emergency department today because of worsening shortness of breath. He was slightly confused, bronchospastic and wheezy and short of breath and he was also in atrial fibrillation with rapid ventricular response. Note that the patient has COPD which is severe with a baseline FEV1 of 28% of predicted. He has obstructive sleep apnea with an AHI of 17. He suffers from chronic atrial fibrillation and coronary artery disease. His last hospitalization was back in October 2018 when he came in for a similar presentation of shortness of breath and a flutter and he was given Cardizem drip for rate control. During this current admission, the patient was started on a Cardizem drip. He became hypotensive. The Cardizem drip was discontinued briefly. He was given a total of 2.5 L of normal saline bolus. He was placed on a BiPAP for respiratory support. A CT angiogram was done that showed no evidence of any pulmonary embolism. And this was done and FiO2 of 40% with a pressures of 10/5 cm of water. His white cell count is at 11.7. His lactic acid level is at 2.5. He has some erythema and swelling of the left lower extremity. Doppler of the lower extremity was done and the patient did not have any DVT. The patient is being considered for encephalitis of the left lower extremity. Currently he is comfortable on the BiPAP. Today's evaluation of 06/30/2019 the patient is feeling better compared to angy mckay. The patient is less short of breath. The patient is off the BiPAP and currently is on oxygen at night him 3 L per minute nasal cannula. The patient is not having any chest pain. His appetite is improved and currently his heart is under control as him being on a Cardizem drip at 10 mg an hour for rate control. He is also on antibiotic ventilation with Eliquis. Function is stable. Blood sugars are slightly elevated and the patient is currently off his gout controlled on metformin. No fever. No chills. Significant improvement in the right lower extremity cellulitis. No other specific complaints otherwise for now. Chest x-ray showing some developing infiltrate along the left lower lobe/lingular area. There is a concern of a limited pneumonia and that involved area. No significant leukocytosis. Cultures are still pending for now. On today's evaluation of 07/01/2019, I'm seeing this patient for a follow-up. The patient is a bit more short of breath compared to yesterday. His chest x- rays clear to showing a left lung consolidation suggestive of an underlying pneumonia. The patient is still being treated for a right lower extremity cellulitis. Enterococcus group D was also cultured the urine. Currently is on a combination of Levaquin and vancomycin. IV cefepime was added as the patient was felt to be slightly worse in terms of his pulmonary status. He has a congested cough. I asked him to give me a sputum sample and the sample was collected today. No fever. No chills and altered mentation. He is off the BiPAP for known history on oxygen at 4 L per minute nasal cannula. His white cell count of 10.9. Renal function is stable. He is afebrile. He is still in atrial fibrillation. On and off is having issues with related to tachycardia. The patient remains on long-term articulation with Eli[employer]'s Bloq. The patient is also on a combination of Cardizem 60 mg by mouth 3 times a day and metoprolol 25 g by mouth twice a day. Digoxin was also added by cardiology for rate control. I felt that on examination he was slightly more bronchospastic and wheezy and I recommended the initiation of IV Solu-Medrol and will pay close attention on his blood sugar control. His phlegm bronchodilators. He is on DuoNeb and Pulmicort Respules. Objective - Vital Signs Vital signs: Vital Signs Temp 97.9 F 07/01/19 12:00 Pulse 104 H 07/01/19 15:00 Resp 12 07/01/19 15:00 BP 118/90 07/01/19 15:00 Pulse Ox 92 L 07/01/19 15:00 Intake & Output 06/30/19 07/01/19 07/01/19 18:59 06:59 18:59 Intake Total 60 1400 1290 Output Total 750 700 755 Balance -690 700 535 Weight 126.1 kg Intake: IV 60 1100 1260 .9 60 100 160 Cefepime 2 gm In Sodium 100 Chloride 0.9% 100 ml @ 200 mls/hr IVPB Q12HR [facility] Rx#:[id number] Vancomycin 1,750 mg In 1000 1000 Sodium Chloride 0.9% 500 ml 500 ml @ 167 mls/hr IVPB Q8H [facility] Rx#: [id number] Oral 300 30 Output: Urine 750 700 755 Other: Voiding Method Urinal Urinal Urinal # Voids 0 0 0 - Exam General Appearance no diaphoresis, able be full sentences and the patient is less short of breath currently off liters of oxygen by nasal cannula. Head exam was generally normal. There was no scleral icterus or corneal arcus. Mucous membranes were moist. Neck was supple and without jugular venous distension, thyromegaly, or carotid bruits. Carotids were easily palp Chest the patient has a bit of chest addition to diminished breath sound bilaterally along with prolongation of the expiratory phase of breathing and diffuse expiratory wheezes throughout the lung his bilaterally. Also crackles in the left lung Heart no right ventricular heave, no distant heart sounds, no s3 gallop, and the patient is irregular rate and rhythm. This is consistent with atrial fibrillation. GI bowel sounds: Bowel sounds present.Abdominal exam revealed normal bowel sounds. The abdomen was soft, non-tender, and without masses, organomegaly, or appreciable enlargement of the abdominal aorta. Extremities no cyanosis, no clubbing, edema, Neurologic no decreased mental status, no somnolence, no confusion Examination of the skin revealed no evidence of significant rashes, suspicious appearing nevi or other concerning lesions. There is increased erythema of the right lower extremity along with warmth and redness consistent with cellulitis on top of his chronic venous stasis involving the right lower extremity. His evaluation in the right lower extremity subluxes improving. The patient is less erythematous and warm compared to yesterday. - Labs CBC & Chem 7: 07/01/19 04:41 07/01/19 04:38 Labs: Abnormal Lab Results - Last 24 Hours (Table) 06/30/19 06/30/19 07/01/19 Range/Units 17:07 20:43 04:38 WBC (3.8-10.6) k/uL RBC (4.30-5.90) m/uL Plt Count (150-450) k/uL Neutrophils # (1.3-7.7) k/uL Lymphocytes # (1.0-4.8) k/uL Chloride 108 H (98-107) mmol/L BUN 21 H (9-20) mg/dL Glucose 180 H (74-99) mg/dL POC Glucose (mg/dL) 250 H 183 H (75-99) mg/dL 07/01/19 07/01/19 Range/Units 04:41 06:44 WBC 10.9 H (3.8-10.6) k/uL RBC 4.28 L (4.30-5.90) m/uL Plt Count 119 L (150-450) k/uL Neutrophils # 9.4 H (1.3-7.7) k/uL Lymphocytes # 0.9 L (1.0-4.8) k/uL Chloride (98-107) mmol/L BUN (9-20) mg/dL Glucose (74-99) mg/dL POC Glucose (mg/dL) 157 H (75-99) mg/dL Microbiology - Last 24 Hours (Table) 06/29/19 13:20 Blood Culture - Preliminary Blood No Growth after 48 hours 06/30/19 15:04 Gram Stain - Preliminary Sputum Sputum Culture - Preliminary 06/29/19 12:00 Urine Culture - Preliminary Urine,Voided Group D Enterococcus Assessment and Plan Plan: Assessment 1 acute COPD exacerbation with secondary respiratory failure. The patient is developing a left lung consolidation/pneumonia. At the same time the patient was septic possibly secondary to an underlying a right lower extremity cellulitis of the time of admission. Infiltrate in the left lung was limited and minimal at time of admission and subsequent chest x-ray showed worsening of the left lung pneumonia. He is off the BiPAP. He has bronchospastic and wheezy. He is hemodynamically stable on his on no pressors. 2 the patient currently is on oxygen at 3 L per minute nasal cannula. chronic obstructive lung disease severe COPD with an FEV1 of 28% of predicted. 3 obstructive sleep apnea syndrome The patient has an apnea popping index of 17 currently is is not utilizing CPAP therapy has been off treatment. 4 obesity 5 chronic atrial fibrillation with rapid ventricular response. Briefly encountered hypotension with Cardizem infusion and the patient was given 2.5 L of bolus of IV fluid in the ED. Echocardiogram from his most recent admission showed a preserved LV function without any significant valvular abnormalities. Patient has a preserved LV function with an ejection fraction of 50-55%. RV is mildly dilated. Right ventricular systolic pressures around 34 consistent with mild pulmonary hypertension related to his chronic lung disease. 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 13 mild lactic acidosis, improving Plan Continue Levaquin and vancomycin. Add cefepime as the patient has a left lung consolidation which has gotten worse and this will give the patient a better gram-negative and gram-positive coverage. I'm going to be collecting a sputum sample. Continue bronchodilators. Continue Pulmicort Respules. Add IV Solu- Medrol. Monitor the blood sugar and control the patient's blood sugar with a slight scale coverage. Monitor the right lower extremity cellulitis. Monitor renal function. Monitor electrolytes. Monitor daily chest x-ray. No altered mentation this point in time. Atrial fibrillation is an ongoing issue as the patient is slightly tachycardic. He is on a combination of digoxin and metoprolol and Cardizem. He is also on long-term and to coagulation with Eliquis. He'll be kept in ICU. We'll continue to follow make further recommendations based on his progress. The family has been updated on his condition. He is not using BiPAP therapy for now as his overall pulmonary statu s is stabilized compared to his admission.
[2019-07-01 17:18] LABS: Glucose,Whole Blood 130 mg/dL (75-99)
[2019-07-01] MEDS: ATORVASTATIN 80 MG TAB PO SCH (19:59)
[2019-07-01 20:06] LABS: Glucose,Whole Blood 220 mg/dL (75-99)
[2019-07-01] MEDS: IPRATROPIUM-ALBUTEROL 3 ML NEB INHALATION PRN (23:15)
[2019-07-02] MEDS ORDERED: VANCOMYCIN TROUGH DUE 1 EACH MISC MISCELLANE ONE (05:00)
[2019-07-02 05:59] LABS: Basophils % (A) 0 %; Eosinophils % (A) 0 %; HCT 44.4 % (39.0-53.0); HGB 14.8 gm/dL (13.0-17.5); Lymphocytes # (A) 0.3 k/uL (1.0-4.8); Lymphocytes % (A) 4 %; MCH 33.8 pg (25.0-35.0); MCHC 33.4 g/dL (31.0-37.0); MCV 101.3 fL (80.0-100.0); Macrocytosis Slight; Mean Platelet Volume 6.9; Monocytes # (A) 0.2 k/uL (0-1.0); Monocytes % (A) 2 %; Neutrophils # (A) 8.2 k/uL (1.3-7.7); Neutrophils % (A) 93 %; Platelet Count 136 k/uL (150-450); RBC 4.38 m/uL (4.30-5.90); RDW 13.9 % (11.5-15.5); WBC 8.8 k/uL (3.8-10.6)
[2019-07-02 06:07] LABS: ALT 35 U/L (21-72); AST 26 U/L (17-59); African American GFR (CKD) >90 (>60 ml/min/1.73 sqM); Albumin 3.2 g/dL (3.5-5.0); Alkaline Phosphatase 43 U/L (38-126); Anion Gap 7 mmol/L; Blood Urea Nitrogen 20 mg/dL (9-20); Carbon Dioxide 25 mmol/L (22-30); Chloride 106 mmol/L (98-107); Glucose 243 mg/dL (74-99); Non-African American GFR(CKD) >90 (>60 ml/min/1.73 sqM); Potassium 4.6 mmol/L (3.5-5.1); Sodium 138 mmol/L (137-145); Total Bilirubin 1.3 mg/dL (0.2-1.3); Total Protein 5.5 g/dL (6.3-8.2)
[2019-07-02] MEDS: glipiZIDE 10 MG TAB PO SCH (06:34)
[2019-07-02] MEDS: PANTOPRAZOLE 40 MG TABLET PO SCH (06:34)
[2019-07-02] MEDS: INSULIN ASPART (NovoLOG) 100 UNIT/ML VIAL SQ SCH ×6 (06:34→20:30)
[2019-07-02] MEDS: VANCOMYCIN 1,750 MG in SODIUM CHLORIDE 0.9% 500 ML 500 ML IVPB SCH ×3 (06:34→21:12)
[2019-07-02 06:40] LABS: Glucose,Whole Blood 235 mg/dL (75-99)
[2019-07-02] MEDS: BUDESONIDE 0.5 MG/2 ML NEBU INHALATION SCH ×2 (07:21→20:00)
[2019-07-02] MEDS: IPRATROPIUM-ALBUTEROL 3 ML NEB INHALATION SCH ×4 (07:21→20:00)
--- NOTE | 2019-07-02 07:30 | XR ---
EXAMINATION TYPE: XR chest 1V portable DATE OF EXAM: 07/02/2019 CLINICAL HISTORY: Difficulty breathing progress study. TECHNIQUE: Single AP portable upright view of the chest is obtained. COMPARISON: Chest x-ray from one day earlier and older studies. CTA chest 3 days ago. FINDINGS: Elevated left hemidiaphragm redemonstrated. Right lung remains clear. Patchy left basilar scarring and/or atelectasis. Cardiac silhouette size is stable and mildly enlarged. Right lung remain s clear. Osseous structures are intact. IMPRESSION: Overall stable findings, chronic left basilar changes. No new acute infiltrate.
[2019-07-02] MEDS: ASPIRIN 81 MG PO SCH (08:04)
[2019-07-02] MEDS: CEFEPIME 2 GM in SODIUM CHLORIDE 0.9% 100 ML IVPB SCH ×3 (08:05→20:32)
[2019-07-02] MEDS: DIGOXIN 250 MCG TAB PO SCH (08:05)
[2019-07-02] MEDS: methylPREDNISolone SOD SUCCI 40 MG/ML 1 ML VIAL IV SCH ×2 (08:05→17:11)
[2019-07-02] MEDS: APIXABAN 5 MG TAB PO SCH ×2 (08:05→20:33)
[2019-07-02] MEDS: METOPROLOL TARTRATE 25 MG TAB PO SCH ×2 (08:06→20:51)
[2019-07-02] MEDS: DILTIAZEM ORAL 60 MG TAB PO SCH (08:06)
--- NOTE | 2019-07-02 09:08 | P.PN ---
Subjective Progress Note Date: 07/02/19 This is a 69-year-old male patient with well-known to me. The patient came into the emergency department today because of worsening shortness of breath. He was slightly confused, bronchospastic and wheezy and short of breath and he was also in atrial fibrillation with rapid ventricular response. Note that the patient has COPD which is severe with a baseline FEV1 of 28% of predicted. He has obstructive sleep apnea with an AHI of 17. He suffers from chronic atrial fibrillation and coronary artery disease. His last hospitalization was back in October 2018 when he came in for a similar presentation of shortness of breath and a flutter and he was given Cardizem drip for rate control. During this current admission, the patient was started on a Cardizem drip. He became hypotensive. The Cardizem drip was discontinued briefly. He was given a total of 2.5 L of normal saline bolus. He was placed on a BiPAP for respiratory support. A CT angiogram was done that showed no evidence of any pulmonary embolism. And this was done and FiO2 of 40% with a pressures of 10/5 cm of water. His white cell count is at 11.7. His lactic acid level is at 2.5. He has some erythema and swelling of the left lower extremity. Doppler of the lower extremity was done and the patient did not have any DVT. The patient is being considered for encephalitis of the left lower extremity. Currently he is comfortable on the BiPAP. Today's evaluation of 06/30/2019 the patient is feeling better compared to angy mckay. The patient is less short of breath. The patient is off the BiPAP and currently is on oxygen at night him 3 L per minute nasal cannula. The patient is not having any chest pain. His appetite is improved and currently his heart is under control as him being on a Cardizem drip at 10 mg an hour for rate control. He is also on antibiotic ventilation with Eliquis. Function is stable. Blood sugars are slightly elevated and the patient is currently off his gout controlled on metformin. No fever. No chills. Significant improvement in the right lower extremity cellulitis. No other specific complaints otherwise for now. Chest x-ray showing some developing infiltrate along the left lower lobe/lingular area. There is a concern of a limited pneumonia and that involved area. No significant leukocytosis. Cultures are still pending for now. On today's evaluation of 07/01/2019, I'm seeing this patient for a follow-up. The patient is a bit more short of breath compared to yesterday. His chest x- rays clear to showing a left lung consolidation suggestive of an underlying pneumonia. The patient is still being treated for a right lower extremity cellulitis. Enterococcus group D was also cultured the urine. Currently is on a combination of Levaquin and vancomycin. IV cefepime was added as the patient was felt to be slightly worse in terms of his pulmonary status. He has a congested cough. I asked him to give me a sputum sample and the sample was collected today. No fever. No chills and altered mentation. He is off the BiPAP for known history on oxygen at 4 L per minute nasal cannula. His white cell count of 10.9. Renal function is stable. He is afebrile. He is still in atrial fibrillation. On and off is having issues with related to tachycardia. The patient remains on long-term articulation with Joyride. The patient is also on a combination of Cardizem 60 mg by mouth 3 times a day and metoprolol 25 g by mouth twice a day. Digoxin was also added by cardiology for rate control. I felt that on examination he was slightly more bronchospastic and wheezy and I recommended the initiation of IV Solu-Medrol and will pay close attention on his blood sugar control. His phlegm bronchodilators. He is on DuoNeb and Pulmicort Respules. On 07/02/2019 I'm seeing this patient for a follow-up. The patient is less short of breath compared to yesterday. Is calm and comfortable and hemodynamically stable. He still having issues with A. fib RVR and he is on a combination of metoprolol and Cardizem and digoxin was added yesterday. His morning rate is in the 05/26/2020 range. His chest x-ray from today showing no acute infiltrates. There is elevation of the left hemidiaphragm. Right lung is clear. There is left lung infiltrate perihilar and left lower lobe. The patient is currently on oxygen at 3 L per minute nasal cannula. He is producing adequate amount of urine output. Antibiotic coverage including a combination of cefepime vancomycin and Levaquin. He is on IV Solu-Medrol. Sputum Gram stain and culture was checked and the results are still pending. Right lower extremity several minutes is also improved on today's evaluation. He is tolerating his diet. No nausea. No vomiting. No abdominal pain. No chest pain. He has some mild hyperglycemia that needs to be controlled more tight. Objective - Vital Signs Vital signs: Vital Signs Temp 97.6 F 07/02/19 08:00 Pulse 131 H 07/02/19 08:00 Resp 15 07/02/19 08:00 BP 145/73 07/02/19 08:00 Pulse Ox 96 07/02/19 08:00 Intake & Output 07/01/19 07/02/19 07/02/19 18:59 06:59 18:59 Intake Total 1580 840 980 Output Total 1255 1000 200 Balance 325 -160 780 Weight 126.8 kg Intake: IV 1300 840 560 .9 200 240 60 Cefepime 2 gm In Sodium 100 100 Chloride 0.9% 100 ml @ 200 mls/hr IVPB Q12HR JOE Rx#:[id number] Vancomycin 1,750 mg In 1000 500 500 Sodium Chloride 0.9% 500 ml 500 ml @ 167 mls/hr IVPB Q8H JOE Rx#: [id number] Oral 280 420 Output: Urine 1255 1000 200 Other: Voiding Method Urinal Urinal # Voids 1 1 - Exam General Appearance no diaphoresis, able be full sentences and the patient is less short of breath currently off liters of oxygen by nasal cannula. Head exam was generally normal. There was no scleral icterus or corneal arcus. Mucous membranes were moist. Neck was supple and without jugular venous distension, thyromegaly, or carotid bruits. Carotids were easily palp Chest the patient has a bit of chest addition to diminished breath sound bilaterally along with prolongation of the expiratory phase of breathing and diffuse expiratory wheezes throughout the lung his bilaterally. Also crackles in the left lung Heart no right ventricular heave, no distant heart sounds, no s3 gallop, and the patient is irregular rate and rhythm. This is consistent with atrial fibrillation. GI bowel sounds: Bowel sounds present.Abdominal exam revealed normal bowel sounds. The abdomen was soft, non-tender, and without masses, organomegaly, or appreciable enlargement of the abdominal aorta. Extremities no cyanosis, no clubbing, edema, Neurologic no decreased mental status, no somnolence, no confusion Examination of the skin revealed no evidence of significant rashes, suspicious appearing nevi or other concerning lesions. There is increased erythema of the right lower extremity along with warmth and redness consistent with cellulitis on top of his chronic venous stasis involving the right lower extremity. His e valuation in the right lower extremity subluxes improving. The patient is less erythematous and warm compared to yesterday. - Labs CBC & Chem 7: 07/02/19 05:21 07/02/19 05:21 Labs: Abnormal Lab Results - Last 24 Hours (Table) 07/01/19 07/01/19 07/02/19 Range/Units 17:06 19:55 05:21 MCV 101.3 H (80.0-100.0) fL Plt Count 136 L (150-450) k/uL Neutrophils # 8.2 H (1.3-7.7) k/uL Lymphocytes # 0.3 L (1.0-4.8) k/uL Glucose (74-99) mg/dL POC Glucose (mg/dL) 130 H 220 H (75-99) mg/dL Total Protein (6.3-8.2) g/dL Albumin (3.5-5.0) g/dL 07/02/19 07/02/19 Range/Units 05:21 06:29 MCV (80.0-100.0) fL Plt Count (150-450) k/uL Neutrophils # (1.3-7.7) k/uL Lymphocytes # (1.0-4.8) k/uL Glucose 243 H (74-99) mg/dL POC Glucose (mg/dL) 235 H (75-99) mg/dL Total Protein 5.5 L (6.3-8.2) g/dL Albumin 3.2 L (3.5-5.0) g/dL Microbiology - Last 24 Hours (Table) 06/29/19 12:00 Urine Culture - Final Urine,Voided Enterococcus faecalis 06/29/19 13:20 Blood Culture - Preliminary Blood No Growth after 48 hours Assessment and Plan Plan: Assessment 1 acute COPD exacerbation with secondary respiratory failure. The patient is developing a left lung consolidation/pneumonia. At the same time the patient was septic possibly secondary to an underlying a right lower extremity cellulitis of the time of admission. Infiltrate in the left lung was limited and minimal at time of admission and subsequent chest x-ray showed worsening of the left lung pneumonia. The chest x-ray findings from today show no acute abnormalities. The patient is on same antibiotic coverage. Sputum Gram stain and cultures still pending. Stop liters about 2 by nasal cannula and utilizing BiPAP overnight. 2 the patient currently is on oxygen at 3 L per minute nasal cannula. chronic obstructive lung disease severe COPD with an FEV1 of 28% of predicted. 3 obstructive sleep apnea syndrome The patient has an apnea popping index of 17 currently is is not utilizing CPAP therapy has been off treatment. 4 obesity 5 chronic atrial fibrillation with rapid ventricular response. Briefly encountered hypotension with Cardizem infusion and the patient was given 2.5 L of bolus of IV fluid in the ED. Echocardiogram from his most recent admission showed a preserved LV function without any significant valvular abnormalities. Patient has a preserved LV function with an ejection fraction of 50-55%. RV is mildly dilated. Right ventricular systolic pressures around 34 consistent with mild pulmonary hypertension related to his chronic lung disease. 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 13 mild lactic acidosis, improving 14 steroid-induced hyperglycemia. Plan Continue Levaquin and vancomycin and cefepime. Awaiting the results of the sputum Gram stain and culture. Chest x-ray from today shows stable findings on on examination is improved in terms of his crackles in the left lower lobe. Sitting up on a chair. Monitor the cardiac rhythm. Monitor the heart rate. Continue the combination of metoprolol and Cardizem and digoxin. He is on long-term medical condition with Eliquis. The lower cellulitis improving. Add Lantus 10 units and achieve tighter blood sugar control with his vascular coverage. Keep him in the ICU for a 24 hours. We'll continue to follow.
[2019-07-02] MEDS: INSULIN DETEMIR (LEVEMIR) 100 UNIT/ML SYR SQ SCH (09:57)
[2019-07-02] MEDS ORDERED: DILTIAZEM ORAL 30 MG TAB PO STA (11:08)
[2019-07-02 12:16] LABS: Glucose,Whole Blood 216 mg/dL (75-99)
--- NOTE | 2019-07-02 12:44 | PN ---
PROGRESS NOTE Laron is a 69-year-old gentleman with atrial fibrillation with poorly controlled ventricular rate. This morning, he is feeling better. Still has some cough and cellulitis of the legs. Heart rate is better controlled, but still elevated. I am going to increase the Cardizem to 90 t.i.d., continue the metoprolol 25 b.i.d. and the digoxin. On exam, comfortable at rest. Heart rate is around 110 beats per minute. Blood pressure is 102/77. Respiratory rate is 18. Chest exam reveals diminished air entry at the bases. Heart exam reveals first and second heart sounds, irregular rhythm and a systolic murmur at the left lower sternal border. Abdomen is soft. Examination of extremities revealed bilateral pitting edema and cellulitis. LABS: Labs show a hemoglobin of 14.8, potassium is 4.6, creatinine is 0.7. ASSESSMENT: Chronic persistent atrial fibrillation with poorly controlled ventricular rate. I will increase the dose of Cardizem. Continue rest of his medications. Patient is on Eliquis for anticoagulation. MMODL / IJN: [id number] /
--- NOTE | 2019-07-02 13:56 | P.PN ---
Subjective Progress Note Date: 07/02/19 69-year-old morbidly obese male one of Dr. Holland patient was known to have history of A. fib with RVR, coronary disease, post myocardial infarction, obstructive sleep apnea, vascular disorders, severe COPD with FEV1 of 20% only, recurrence alive slower 70, hyperglycemia and CAD post PCI and stent placement in the past who was the hospital last time few month ago for A. fib with RVR was not well-controlled for long time was supposed to have ablation and see Dr Sandoval at the time. He presented to [facility] department in the evening of 06/29/2019 with worsening dyspnea and shortness of breath mild confusion severe wheezes with cough and significant palpitation pulse rate running over 160 bpm time. According to him and his started as an increased cellulitis and edema of the lower extremity worse in the right leg than the left side with low-grade temperature the time his symptoms become much worse and developed to have significant spasm of the bronchial airway with worsening wheezes and significant dyspnea with hypoxia and severe palpitation and arrhythmia. [facility]p blood pressure dropped down significantly was taking off Cardizem drip and started him 0.9 normal saline bolus his blood pressure had improved with his elevated white blood cell spasm of the airway and COPD exacerbation was placed on BiPAP consult cardiology and pulmonary patient pulse rate has improved with metoprolol and Cardizem oral he is still on anticoagulation at this time patient was started on vancomycin and Levaquin. 07/01: Patient had significant episode of A. fib with RVR pulse rate was running very high today had responded to medical management afterward. Patient is off BiPAP he still having bronchospasm also had fluid overload we will do 1 dose of Lasix 40 mg daily today. Patient remain on vancomycin and still on Levaquin for cellulitis and bilateral pneumonitis. Still on high dose of steroid with good response compared to yesterday. 07/02: Heart rate is running in the 90s to 110, pulse ox 93% on 3 L nasal cannula, blood pressure 110/76, afebrile. Patient remains in atrial fibrillation. Cardiology has increased Cardizem dose. Patient is currently on aspirin and eliquis. He did have a small amount of rectal bleeding possibly fro m hemorrhoids when he passes gas. Blood sugars have been elevated for which Dr. Artinian is indicated in Levemir 10 units and we will also add in scheduled NovoLog 5 with each meal. He is currently on antibiotics the form of cefepime, Levaquin and vancomycin. WBC 8.8, hemoglobin 14.8, platelet count is 136. Electrolytes and renal function within normal limits. Urine culture is positive for Enterococcus faecalis susceptible to vancomycin and Levaquin. Patient received 1 dose of IV Lasix yesterday and urinated 1 L following that. His urine output has been adequate. Objective - Vital Signs Vital signs: Vital Signs Temp 97.6 F 07/02/19 08:00 Pulse 121 H 07/02/19 09:00 Resp 22 07/02/19 09:00 BP 130/78 07/02/19 09:00 Pulse Ox 95 07/02/19 09:00 Intake & Output 07/01/19 07/02/19 07/02/19 18:59 06:59 18:59 Intake Total 1580 840 980 Output Total 1255 1000 200 Balance 325 -160 780 Weight 126.8 kg Intake: IV 1300 840 560 .9 200 240 60 Cefepime 2 gm In Sodium 100 100 Chloride 0.9% 100 ml @ 200 mls/hr IVPB Q12HR JOE Rx#:[id number] Vancomycin 1,750 mg In 1000 500 500 Sodium Chloride 0.9% 500 ml 500 ml @ 167 mls/hr IVPB Q8H JOE Rx#: [id number] Oral 280 420 Output: Urine 1255 1000 200 Other: Voiding Method Urinal Urinal # Voids 1 1 - Exam General Appearance: Alert, cooperative, no distress, resting in ICU bed Neck HEENT: Supple, no lymphadenopathy, no thyroid enlargement, no carotid bruits. Lungs: Decrease expansion with deep inspiration positive fine rhonchi positive mild crackles in the bases positive Monospot is breath expected wheezes. Chest Wall: Decrease expansion with deep inspiration no tenderness mild costochondral discomfort. Heart: Irregular rhythm and rate is soreness to positive S3 positive ejection murmur with no gallop. Back: Symmetric, no curvature, ROM normal, no CVA tenderness. Abdomen: Soft, non-tender, bowel sounds active all four quadrants, no masses, no organomegaly. Extremities: Significantly edema and discomfort in both legs worse in the right than the left side especially in the lower part around the ankle with pitting edema and mild lymphedema as well with chronic vascular cellulitis. Pulses: 2+ and symmetric. Skin: Skin color, texture, tugor normal, no rashes or lesions. Neurologic: Alert oriented x3 cranial nerves II through XII intact, no motor deficit, no abnormal balance or gait. - Exam Review of Systems CONSTITUTIONAL: Morbidly obese and no respiratory distress. EYES: No icterus sclerae, no conjunctivitis. EARS, NOSE, MOUTH, THROAT, and FACE: No sore throat, lymphadenopathy, carotid bruits or deformity. RESPIRATORY: Positive shortness of breath cough wheezes with significant bronchospasm. CARDIOVASCULAR: Positive shortness of breath palpitation PND orthopnea no angina. GASTROINTESTINAL: No Abd pain, Nausea or vomiting, no Diarrhea or constipation, No GI Bleed, no distention or masses. GENITOURINARY: Negative for Hematuria or UTI, no kidney stones. INTEGUMENT/BREAST: Cellulitis of the lower extremity with worsening edema of the right side. HEMATOLOGIC/LYMPHATIC: Negative for bleed or purpura. MUSCULOSKELTAL: Worsening pain and discomfort of the lower some especially in the right leg. NEURLOGICAL: No LOC, Sz or syncope, blurred vision dizziness or abnormality.. BEHAVIORAL/PSYCH: Negative. ENDOCRINE: Negative. - Labs CBC & Chem 7: 07/02/19 05:21 07/02/19 05:21 Labs: Abnormal Lab Results - Last 24 Hours (Table) 07/01/19 07/01/19 07/02/19 Range/Units 17:06 19:55 05:21 MCV 101.3 H (80.0-100.0) fL Plt Count 136 L (150-450) k/uL Neutrophils # 8.2 H (1.3-7.7) k/uL Lymphocytes # 0.3 L (1.0-4.8) k/uL Glucose (74-99) mg/dL POC Glucose (mg/dL) 130 H 220 H (75-99) mg/dL Total Protein (6.3-8.2) g/dL Albumin (3.5-5.0) g/dL 07/02/19 07/02/19 Range/Units 05:21 06:29 MCV (80.0-100.0) fL Plt Count (150-450) k/uL Neutrophils # (1.3-7.7) k/uL Lymphocytes # (1.0-4.8) k/uL Glucose 243 H (74-99) mg/dL POC Glucose (mg/dL) 235 H (75-99) mg/dL Total Protein 5.5 L (6.3-8.2) g/dL Albumin 3.2 L (3.5-5.0) g/dL Microbiology - Last 24 Hours (Table) 06/29/19 12:00 Urine Culture - Final Urine,Voided Enterococcus faecalis 06/29/19 13:20 Blood Culture - Preliminary Blood No Growth after 48 hours Assessment and Plan Plan: 1 acute hypoxic respiratory failure secondary to Combination of A. fib with RVR, COPD exacerbation, early pneumonitis and severe bronchitis with mild fluid overload, will continue BiPAP continue O2 and updraft treatment consult pulmonary. 2 COPD exacerbation: Causing chronic on acute respiratory failure, patient will continue on BiPAP continue steroids along with nebulizer treatment on regular basis. 4 A. fib with RVR, chronic atrial fibrillation: Still on metoprolol and diltiazem no amiodarone or any other agent patient had responded well to it hopefully with the treatment for infection and taking care of hypoxia might improve A. fib. 5 acute cellulitis of the lower extremity: Remain on vancomycin, cefepime and Levaquin. 6 severe bronchitis with early pneumonitis: Continue antibiotic. 7 obstructive sleep apnea: Patient 3 L nasal cannula. 8 hyperlipidemia: On atorvastatin 80 mg daily. 9 CAD post angioplasty and stent placement patient seen cardiology is still on secondary prevention. 10 type 2 diabetes uncontrolled with hyperglycemia secondary to steroids: On the glipizide and metformin continue Accu-Chek sliding scales coverage and titrate insulin if needed specially been on steroid. Levemir 10 units daily and NovoLog scheduled 5 units with each meal added. 11 hypertension: Was on diltiazem previously watch for any low blood pressure. 12. Abdominal aortic aneurysm monitored by vascular surgery. 13. Acute enterococcus urinary tract infection, present on admission. Continue Levaquin or vancomycin. Discharge plan: Home Impression and plan of care have been directed as dictated by the signing physician. Joy Baxter nurse practitioner acting as scribe for signing physician.
[2019-07-02] MEDS: LEVOFLOXACIN 750 MG TAB PO SCH (14:08)
[2019-07-02 17:13] LABS: Glucose,Whole Blood 213 mg/dL (75-99)
[2019-07-02] MEDS: DILTIAZEM ORAL 30 MG TAB PO SCH ×2 (18:03→23:00)
[2019-07-02] MEDS ORDERED: SODIUM CHLORIDE 0.65% NASAL SPRAY 44 ML BTL NASAL PRN (20:23)
[2019-07-02 20:30] LABS: Glucose,Whole Blood 213 mg/dL (75-99)
[2019-07-02] MEDS: ATORVASTATIN 80 MG TAB PO SCH (20:33)
[2019-07-03] MEDS: methylPREDNISolone SOD SUCCI 40 MG/ML 1 ML VIAL IV SCH ×2 (00:29→09:14)
[2019-07-03 05:16] LABS: Basophils % (A) 0 %; Eosinophils % (A) 0 %; HCT 41.9 % (39.0-53.0); HGB 13.9 gm/dL (13.0-17.5); Lymphocytes # (A) 0.3 k/uL (1.0-4.8); Lymphocytes % (A) 4 %; MCH 33.1 pg (25.0-35.0); MCHC 33.2 g/dL (31.0-37.0); MCV 99.7 fL (80.0-100.0); Mean Platelet Volume 6.8; Monocytes # (A) 0.2 k/uL (0-1.0); Monocytes % (A) 3 %; Neutrophils # (A) 7.1 k/uL (1.3-7.7); Neutrophils % (A) 93 %; Platelet Count 145 k/uL (150-450); RDW 13.8 % (11.5-15.5); WBC 7.6 k/uL (3.8-10.6)
[2019-07-03 05:24] LABS: African American GFR (CKD) >90 (>60 ml/min/1.73 sqM); Anion Gap 4 mmol/L; Blood Urea Nitrogen 21 mg/dL (9-20); Calcium 8.9 mg/dL (8.4-10.2); Carbon Dioxide 27 mmol/L (22-30); Chloride 108 mmol/L (98-107); Glucose 255 mg/dL (74-99); Non-African American GFR(CKD) >90 (>60 ml/min/1.73 sqM); Potassium 4.8 mmol/L (3.5-5.1); Sodium 139 mmol/L (137-145)
[2019-07-03 06:48] LABS: Glucose,Whole Blood 226 mg/dL (75-99)
[2019-07-03] MEDS: VANCOMYCIN 1,750 MG in SODIUM CHLORIDE 0.9% 500 ML 500 ML IVPB SCH (06:53)
[2019-07-03] MEDS: glipiZIDE 10 MG TAB PO SCH (06:53)
[2019-07-03] MEDS: PANTOPRAZOLE 40 MG TABLET PO SCH (06:53)
[2019-07-03] MEDS: INSULIN ASPART (NovoLOG) 100 UNIT/ML VIAL SQ SCH ×7 (06:53→20:58)
[2019-07-03] MEDS: INSULIN DETEMIR (LEVEMIR) 100 UNIT/ML SYR SQ SCH (06:55)
[2019-07-03] MEDS: BUDESONIDE 0.5 MG/2 ML NEBU INHALATION SCH ×2 (07:47→19:25)
[2019-07-03] MEDS: IPRATROPIUM-ALBUTEROL 3 ML NEB INHALATION SCH ×4 (07:47→19:25)
--- NOTE | 2019-07-03 08:22 | XR ---
EXAMINATION TYPE: XR chest 1V portable DATE OF EXAM: 07/03/2019 Comparison: 07/02/2019 Clinical History: 69-year-old male Pneumonia Findings: Continued volume loss at the left base with hazy densities throughout the left hemithorax. Heart bord cory in size. Distortion at the left hilum is unchanged. No new consolidation. Difficult to exclude underlying effu lonnie on the left. Impression: Continued volume loss and opacity at the left base. Suspect additional left perihilar atelectasis or infiltrate, stable.
[2019-07-03] MEDS: APIXABAN 5 MG TAB PO SCH ×2 (09:14→20:57)
[2019-07-03] MEDS: DILTIAZEM ORAL 30 MG TAB PO SCH ×3 (09:15→21:14)
[2019-07-03] MEDS: DIGOXIN 250 MCG TAB PO SCH (09:15)
[2019-07-03] MEDS: METOPROLOL TARTRATE 25 MG TAB PO SCH ×2 (09:15→20:57)
[2019-07-03] MEDS: ASPIRIN 81 MG PO SCH (09:15)
[2019-07-03] MEDS: CEFEPIME 2 GM in SODIUM CHLORIDE 0.9% 100 ML IVPB SCH ×2 (09:15→20:58)
[2019-07-03 12:05] LABS: Glucose,Whole Blood 188 mg/dL (75-99)
--- NOTE | 2019-07-03 12:19 | P.PN ---
Subjective Progress Note Date: 07/03/19 69-year-old morbidly obese male one of Dr. Holland patient was known to have history of A. fib with RVR, coronary disease, post myocardial infarction, obstructive sleep apnea, vascular disorders, severe COPD with FEV1 of 20% only, recurrence alive slower 70, hyperglycemia and CAD post PCI and stent placement in the past who was the hospital last time few month ago for A. fib with RVR was not well-controlled for long time was supposed to have ablation and see Dr Sandoval at the time. He presented to [facility] department in the evening of 06/29/2019 with worsening dyspnea and shortness of breath mild confusion severe wheezes with cough and significant palpitation pulse rate running over 160 bpm time. According to him and his started as an increased cellulitis and edema of the lower extremity worse in the right leg than the left side with low-grade temperature the time his symptoms become much worse and developed to have significant spasm of the bronchial airway with worsening wheezes and significant dyspnea with hypoxia and severe palpitation and arrhythmia. [facility] drip blood pressure dropped down significantly was taking off Cardizem drip and started him 0.9 normal saline bolus his blood pressure had improved with his elevated white blood cell spasm of the airway and COPD exacerbation was placed on BiPAP consult cardiology and pulmonary patient pulse rate has improved with metoprolol and Cardizem oral he is still on anticoagulation at this time patient was started on vancomycin and Levaquin. 07/01: Patient had significant episode of A. fib with RVR pulse rate was running very high today had responded to medical management afterward. Patient is off BiPAP he still having bronchospasm also had fluid overload we will do 1 dose of Lasix 40 mg daily today. Patient remain on vancomycin and still on Levaquin for cellulitis and bilateral pneumonitis. Still on high dose of steroid with good response compared to yesterday. 07/02: Heart rate is running in the 90s to 110, pulse ox 93% on 3 L nasal cannula, blood pressure 110/76, afebrile. Patient remains in atrial fibrillation. Cardiology has increased Cardizem dose. Patient is currently on aspirin and eliquis. He did have a small amount of rectal bleeding possibly fro m hemorrhoids when he passes gas. Blood sugars have been elevated for which Dr. Artinian is indicated in Levemir 10 units and we will also add in scheduled NovoLog 5 with each meal. He is currently on antibiotics the form of cefepime, Levaquin and vancomycin. WBC 8.8, hemoglobin 14.8, platelet count is 136. Electrolytes and renal function within normal limits. Urine culture is positive for Enterococcus faecalis susceptible to vancomycin and Levaquin. Patient received 1 dose of IV Lasix yesterday and urinated 1 L following that. His urine output has been adequate. 07/03: Patient remains in the intensive care unit. He has been cleared by Dr. Berumen to transfer to the cardiac stepdown unit. Monitor remains atrial fibrillation. Heart rate has been in the 80s and 90s. Pulse ox 94% on 3 L nasal cannula, afebrile, blood pressure 116/62. Patient is reaching 1250 ml on incentive spirometry. Repeat lab work reveals white count 7.6, hemoglobin 13.9, platelet count 145. BUN 21 creatinine 0.73, blood sugars running in the 200s. Right lower extremity is less red and edematous with notable improvement of cellulitis. Discharge plan is to return home. We'll add in consult for PT to ensure patient is safe for discharge home. Objective - Vital Signs Vital signs: Vital Signs Temp 97.8 F 07/03/19 08:00 Pulse 94 07/03/19 11:00 Resp 12 07/03/19 11:00 BP 116/62 07/03/19 11:00 Pulse Ox 95 07/03/19 11:00 Intake & Output 07/02/19 07/03/19 07/03/19 18:59 06:59 18:59 Intake Total 2651 720 290 Output Total 900 825 350 Balance 1751 -105 -60 Weight 126.8 kg Intake: IV 1271 220 50 .9 170 120 50 Cefepime 2 gm In Sodium 100 100 Chloride 0.9% 100 ml @ 200 mls/hr IVPB Q12HR JOE Rx#:[id number] Vancomycin 1,750 mg In 1001 Sodium Chloride 0.9% 500 ml 500 ml @ 167 mls/hr IVPB Q8H JOE Rx#: [id number] Intake, IV Titration 500 Amount Vancomycin 1,750 mg In 500 Sodium Chloride 0.9% 500 ml 500 ml @ 167 mls/hr IVPB Q8H JOE Rx#: [id number] Oral 1380 240 Output: Urine 900 825 350 Other: Voiding Method Urinal Urinal Urinal # Voids 1 1 - Exam General Appearance: Alert, cooperative, no distress, resting in ICU in a recliner with legs elevated Neck HEENT: Supple, no lymphadenopathy, no thyroid enlargement, no carotid bruits. Lungs: Decrease expansion with deep inspiration positive fine rhonchi positive mild crackles in the bases positive. Chest Wall: Decrease expansion with deep inspiration no tenderness Heart: Irregular rhythm and rate positive S3 positive ejection murmur with no gallop. Back: Symmetric, no curvature, ROM normal, no CVA tenderness. Abdomen: Soft, non-tender, bowel sounds active all four quadrants, no masses, no organomegaly. Extremities: 1+ edema, decreased erythema with chronic vascular cellulitis. Pulses: 2+ and symmetric. Skin: Skin color, texture, tugor normal, no rashes or lesions. Neurologic: Alert oriented x3 cranial nerves II through XII intact, no motor deficit, no abnormal balance or gait. - Exam Review of Systems CONSTITUTIONAL: Morbidly obese and no respiratory distress. EYES: No icterus sclerae, no conjunctivitis. EARS, NOSE, MOUTH, THROAT, and FACE: No sore throat, lymphadenopathy, carotid bruits or deformity. RESPIRATORY: Positive shortness of breath cough wheezes with significant bronchospasm. CARDIOVASCULAR: Positive shortness of breath palpitation PND orthopnea no angina. GASTROINTESTINAL: No Abd pain, Nausea or vomiting, no Diarrhea or constipation, No GI Bleed, no distention or masses. GENITOURINARY: Negative for Hematuria or UTI, no kidney stones. INTEGUMENT/BREAST: Cellulitis of the lower extremity improving. HEMATOLOGIC/LYMPHATIC: Negative for bleed or purpura. MUSCULOSKELTAL: Worsening pain and discomfort of the lower some especially in the right leg. NEURLOGICAL: No LOC, Sz or syncope, blurred vision dizziness or abnormality.. BEHAVIORAL/PSYCH: Negative. ENDOCRINE: Negative. - Labs CBC & Chem 7: 07/03/19 04:39 07/03/19 04:39 Labs: Abnormal Lab Results - Last 24 Hours (Table) 07/02/19 07/02/19 07/02/19 Range/Units 12:04 17:02 20:18 RBC (4.30-5.90) m/uL Plt Count (150-450) k/uL Lymphocytes # (1.0-4.8) k/uL Chloride (98-107) mmol/L BUN (9-20) mg/dL Glucose (74-99) mg/dL POC Glucose (mg/dL) 216 H 213 H 213 H (75-99) mg/dL 07/03/19 07/03/19 07/03/19 Range/Units 04:39 04:39 06:36 RBC 4.20 L (4.30-5.90) m/uL Plt Count 145 L (150-450) k/uL Lymphocytes # 0.3 L (1.0-4.8) k/uL Chloride 108 H (98-107) mmol/L BUN 21 H (9-20) mg/dL Glucose 255 H (74-99) mg/dL POC Glucose (mg/dL) 226 H (75-99) mg/dL Microbiology - Last 24 Hours (Table) 06/29/19 13:20 Blood Culture - Preliminary Blood No Growth after 72 hours 06/30/19 15:04 Gram Stain - Final Sputum Sputum Culture - Final Assessment and Plan Plan: 1 acute hypoxic respiratory failure secondary to Combination of A. fib with RVR, COPD exacerbation, pneumonia, possible gram-negative pneumonia and severe bronchitis with mild fluid overload, will continue O2 and updraft treatment consult pulmonary. 2 COPD exacerbation: Causing chronic on acute respiratory failure, patient will continue oral prednisone along with nebulizer treatment on regular basis. 4 A. fib with RVR, chronic atrial fibrillation: Still on metoprolol and diltiazem no amiodarone or any other agent patient had responded well to it hopefully with the treatment for infection and taking care of hypoxia might improve A. fib. 5 acute cellulitis of the lower extremity: Remain on vancomycin, cefepime and Levaquin. 6 severe bronchitis with early pneumonitis: Continue antibiotic. 7 obstructive sleep apnea: Patient 3 L nasal cannula. 8 hyperlipidemia: On atorvastatin 80 mg daily. 9 CAD post angioplasty and stent placement patient seen cardiology is still on secondary prevention. 10 type 2 diabetes uncontrolled with hyperglycemia secondary to steroids: On the glipizide and metformin continue Accu-Chek sliding scales coverage and titrate insulin if needed specially been on steroid. Levemir 10 units daily and NovoLog scheduled 5 units with each meal added. 11 hypertension: Was on diltiazem previously watch for any low blood pressure. 12. Abdominal aortic aneurysm monitored by vascular surgery. 13. Acute enterococcus urinary tract infection, present on admission. Continue Levaquin or vancomycin. Discharge plan: Home Impression and plan of care have been directed as dictated by the signing physician. Joy Baxter nurse practitioner acting as scribe for signing physician.
--- NOTE | 2019-07-03 12:33 | PN ---
PROGRESS NOTE Laron is a 69-year-old gentleman who was admitted to hospital with persistent atrial fibrillation with rapid ventricular rate and pneumonia. This morning, he is feeling better. Heart rate is better controlled. He is on Eliquis 5 b.i.d., aspirin, Lipitor, Lanoxin, Glucotrol, Cardizem 90 t.i.d., Lopressor 25 b.i.d. PHYSICAL EXAMINATION: On exam, comfortable at rest. Vital signs are stable. Chest exam: There is diminished air entry at the left base. Heart exam reveals first and second heart sounds. No gallop. Irregular rhythm. Exam of the extremities reveals cellulitis over the right leg. LABS: Lab show a hemoglobin of 13.9, potassium is 4.8, creatinine is 0.7. ASSESSMENT: 1. Persistent atrial fibrillation with poorly controlled ventricular rate. 2. Pneumonia versus atelectasis. PLAN: I will continue current medications. MMODL / IJN: [id number] /
--- NOTE | 2019-07-03 13:45 | P.PN ---
Subjective Progress Note Date: 07/03/19 This is a 69-year-old male patient with well-known to me. The patient came into the emergency department today because of worsening shortness of breath. He was slightly confused, bronchospastic and wheezy and short of breath and he was also in atrial fibrillation with rapid ventricular response. Note that the patient has COPD which is severe with a baseline FEV1 of 28% of predicted. He has obstructive sleep apnea with an AHI of 17. He suffers from chronic atrial fibrillation and coronary artery disease. His last hospitalization was back in October 2018 when he came in for a similar presentation of shortness of breath and a flutter and he was given Cardizem drip for rate control. During this current admission, the patient was started on a Cardizem drip. He became hypotensive. The Cardizem drip was discontinued briefly. He was given a total of 2.5 L of normal saline bolus. He was placed on a BiPAP for respiratory support. A CT angiogram was done that showed no evidence of any pulmonary embolism. And this was done and FiO2 of 40% with a pressures of 10/5 cm of water. His white cell count is at 11.7. His lactic acid level is at 2.5. He has some erythema and swelling of the left lower extremity. Doppler of the lower extremity was done and the patient did not have any DVT. The patient is being considered for encephalitis of the left lower extremity. Currently he is comfortable on the BiPAP. Today's evaluation of 06/30/2019 the patient is feeling better compared to angy mckay. The patient is less short of breath. The patient is off the BiPAP and currently is on oxygen at night him 3 L per minute nasal cannula. The patient is not having any chest pain. His appetite is improved and currently his heart is under control as him being on a Cardizem drip at 10 mg an hour for rate control. He is also on antibiotic ventilation with Eliquis. Function is stable. Blood sugars are slightly elevated and the patient is currently off his gout controlled on metformin. No fever. No chills. Significant improvement in the right lower extremity cellulitis. No other specific complaints otherwise for now. Chest x-ray showing some developing infiltrate along the left lower lobe/lingular area. There is a concern of a limited pneumonia and that involved area. No significant leukocytosis. Cultures are still pending for now. On today's evaluation of 07/01/2019, I'm seeing this patient for a follow-up. The patient is a bit more short of breath compared to yesterday. His chest x- rays clear to showing a left lung consolidation suggestive of an underlying pneumonia. The patient is still being treated for a right lower extremity cellulitis. Enterococcus group D was also cultured the urine. Currently is on a combination of Levaquin and vancomycin. IV cefepime was added as the patient was felt to be slightly worse in terms of his pulmonary status. He has a congested cough. I asked him to give me a sputum sample and the sample was collected today. No fever. No chills and altered mentation. He is off the BiPAP for known history on oxygen at 4 L per minute nasal cannula. His white cell count of 10.9. Renal function is stable. He is afebrile. He is still in atrial fibrillation. On and off is having issues with related to tachycardia. The patient remains on long-term articulation with [employer]. The patient is also on a combination of Cardizem 60 mg by mouth 3 times a day and metoprolol 25 g by mouth twice a day. Digoxin was also added by cardiology for rate control. I felt that on examination he was slightly more bronchospastic and wheezy and I recommended the initiation of IV Solu-Medrol and will pay close attention on his blood sugar control. His phlegm bronchodilators. He is on DuoNeb and Pulmicort Respules. On 07/02/2019 I'm seeing this patient for a follow-up. The patient is less short of breath compared to yesterday. Is calm and comfortable and hemodynamically stable. He still having issues with A. fib RVR and he is on a combination of metoprolol and Cardizem and digoxin was added yesterday. His morning rate is in the 05/26/2020 range. His chest x-ray from today showing no acute infiltrates. There is elevation of the left hemidiaphragm. Right lung is clear. There is left lung infiltrate perihilar and left lower lobe. The patient is currently on oxygen at 3 L per minute nasal cannula. He is producing adequate amount of urine output. Antibiotic coverage including a combination of cefepime vancomycin and Levaquin. He is on IV Solu-Medrol. Sputum Gram stain and culture was checked and the results are still pending. Right lower extremity several minutes is also improved on today's evaluation. He is tolerating his diet. No nausea. No vomiting. No abdominal pain. No chest pain. He has some mild hyperglycemia that needs to be controlled more tight. On 07/03/2019 I'm seeing Laron for a follow-up. He is already feeling better. Is sitting up on a chair. No major respiratory difficulties. On the chest x- ray from today shows improvement in the aeration of left lower lobe. His right lower extremity cellulitis also improving. Edema is improving. He is and accommodation of antibiotics including cefepime and Levaquin and vancomycin. He is on no pressors. Heart is under better control. No fever. No chills. He is on IV Solu Medrol regarding COPD exacerbation. Sputum Gram stain and cultures still negative for now. Enterococcus group D was cultured in the urine. No other significant events overnight. He is awake and alert. He is tolerating his diet. No altered mentation. No chest pain. No palpitations. Objective - Vital Signs Vital signs: Vital Signs Temp 97.8 F 07/03/19 08:00 Pulse 86 07/03/19 11:55 Resp 15 07/03/19 11:55 BP 116/62 07/03/19 11:00 Pulse Ox 94 L 07/03/19 11:46 Intake & Output 07/02/19 07/03/19 07/03/19 18:59 06:59 18:59 Intake Total 2651 720 290 Output Total 900 825 350 Balance 1751 -105 -60 Weight 126.8 kg Intake: IV 1271 220 50 .9 170 120 50 Cefepime 2 gm In Sodium 100 100 Chloride 0.9% 100 ml @ 200 mls/hr IVPB Q12HR JOE Rx#:[id number] Vancomycin 1,750 mg In 1001 Sodium Chloride 0.9% 500 ml 500 ml @ 167 mls/hr IVPB Q8H JOE Rx#: [id number] Intake, IV Titration 500 Amount Vancomycin 1,750 mg In 500 Sodium Chloride 0.9% 500 ml 500 ml @ 167 mls/hr IVPB Q8H JOE Rx#: [id number] Oral 1380 240 Output: Urine 900 825 350 Other: Voiding Method Urinal Urinal Urinal # Voids 1 1 - Exam General Appearance no diaphoresis, able be full sentences and the patient is less short of breath currently off liters of oxygen by nasal cannula. Head exam was generally normal. There was no scleral icterus or corneal arcus. Mucous membranes were moist. Neck was supple and without jugular venous distension, thyromegaly, or carotid bruits. Carotids were easily palp Chest the patient has a bit of chest addition to diminished breath sound bilaterally along with prolongation of the expiratory phase of breathing and diffuse expiratory wheezes throughout the lung his bilaterally and this is significantly improved compared to yesterday. Also crackles in the left lung have improved on today's evaluation. Heart no right ventricular heave, no distant heart sounds, no s3 gallop, and the patient is irregular rate and rhythm. This is consistent with atrial fibrillation. GI bowel sounds: Bowel sounds present.Abdominal exam revealed normal bowel elva nds. The abdomen was soft, non-tender, and without masses, organomegaly, or appreciable enlargement of the abdominal aorta. Extremities no cyanosis, no clubbing, edema, Neurologic no decreased mental status, no somnolence, no confusion Examination of the skin revealed no evidence of significant rashes, suspicious appearing nevi or other concerning lesions. There is increased erythema of the right lower extremity along with warmth and redness consistent with cellulitis on top of his chronic venous stasis involving the right lower extremity. His evaluation in the right lower extremity subluxes improving. The patient is less erythematous and warm compared to yesterday. - Labs CBC & Chem 7: 07/03/19 04:39 07/03/19 04:39 Labs: Abnormal Lab Results - Last 24 Hours (Table) 07/02/19 07/02/19 07/03/19 Range/Units 17:02 20:18 04:39 RBC 4.20 L (4.30-5.90) m/uL Plt Count 145 L (150-450) k/uL Lymphocytes # 0.3 L (1.0-4.8) k/uL Chloride (98-107) mmol/L BUN (9-20) mg/dL Glucose (74-99) mg/dL POC Glucose (mg/dL) 213 H 213 H (75-99) mg/dL 07/03/19 07/03/19 07/03/19 Range/Units 04:39 06:36 11:54 RBC (4.30-5.90) m/uL Plt Count (150-450) k/uL Lymphocytes # (1.0-4.8) k/uL Chloride 108 H (98-107) mmol/L BUN 21 H (9-20) mg/dL Glucose 255 H (74-99) mg/dL POC Glucose (mg/dL) 226 H 188 H (75-99) mg/dL Microbiology - Last 24 Hours (Table) 06/29/19 13:20 Blood Culture - Preliminary Blood No Growth after 72 hours 06/30/19 15:04 Gram Stain - Final Sputum Sputum Culture - Final Assessment and Plan Plan: Assessment 1 acute COPD exacerbation with secondary respiratory failure. The patient is developing a left lung consolidation/pneumonia. The follow-up chest x-ray from today shows improved aeration of the left lower lobe. The patient is currently on oxygen at 3 L per minute nasal cannula. He is covered with a combination of antibiotics and systemic steroids. He is improved. 2 the patient currently is on oxygen at 3 L per minute nasal cannula. chronic obstructive lung disease severe COPD with an FEV1 of 28% of predicted. 3 obstructive sleep apnea syndrome The patient has an apnea popping index of 17 currently is is not utilizing CPAP therapy has been off treatment. 4 right lower eczematous cellulitis, improved 5 chronic atrial fibrillation with rapid ventricular response. Briefly encountered hypotension with Cardizem infusion and the patient was given 2.5 L of bolus of IV fluid in the ED. Echocardiogram from his most recent admission showed a preserved LV function without any significant valvular abnormalities. Patient has a preserved LV function with an ejection fraction of 50-55%. RV is mildly dilated. Right ventricular systolic pressures around 34 consistent with mild pulmonary hypertension related to his chronic lung disease. 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 13 mild lactic acidosis, improving 14 steroid-induced hyperglycemia. 15 obesity Plan Continue Levaquin and cefepime. Discontinue the vancomycin. Discontinue the IV Solu Medrol put the patient a prednisone burst taper. Monitor the blood sugar. Continue Eliquis. Continue the combination of digoxin and metoprolol and Ca rdizem. Clinically improved. I think he should be able to transfer to a medical floor.
[2019-07-03] MEDS: LEVOFLOXACIN 750 MG TAB PO SCH (16:09)
[2019-07-03 16:59] LABS: Glucose,Whole Blood 230 mg/dL (75-99)
[2019-07-03 20:42] LABS: Glucose,Whole Blood 251 mg/dL (75-99)
[2019-07-03] MEDS: ATORVASTATIN 80 MG TAB PO SCH (20:57)
[2019-07-04 06:17] LABS: Basophils % (A) 0 %; Eosinophils % (A) 0 %; HCT 42.1 % (39.0-53.0); HGB 14.3 gm/dL (13.0-17.5); Lymphocytes # (A) 0.3 k/uL (1.0-4.8); Lymphocytes % (A) 4 %; MCH 33.8 pg (25.0-35.0); MCV 99.3 fL (80.0-100.0); Mean Platelet Volume 6.9; Monocytes # (A) 0.4 k/uL (0-1.0); Monocytes % (A) 5 %; Neutrophils # (A) 7.6 k/uL (1.3-7.7); Neutrophils % (A) 90 %; Platelet Count 160 k/uL (150-450); RBC 4.24 m/uL (4.30-5.90); RDW 13.9 % (11.5-15.5); WBC 8.5 k/uL (3.8-10.6)
[2019-07-04 06:29] LABS: African American GFR (CKD) >90 (>60 ml/min/1.73 sqM); Anion Gap 4 mmol/L; Blood Urea Nitrogen 21 mg/dL (9-20); Calcium 9.1 mg/dL (8.4-10.2); Carbon Dioxide 29 mmol/L (22-30); Chloride 108 mmol/L (98-107); Glucose 213 mg/dL (74-99); Non-African American GFR(CKD) >90 (>60 ml/min/1.73 sqM); Potassium 4.7 mmol/L (3.5-5.1); Sodium 141 mmol/L (137-145)
[2019-07-04 06:31] LABS: Glucose,Whole Blood 199 mg/dL (75-99)
[2019-07-04] MEDS: PANTOPRAZOLE 40 MG TABLET PO SCH (06:33)
[2019-07-04] MEDS: INSULIN ASPART (NovoLOG) 100 UNIT/ML VIAL SQ SCH ×7 (06:33→21:07)
[2019-07-04] MEDS: INSULIN DETEMIR (LEVEMIR) 100 UNIT/ML SYR SQ SCH (06:33)
[2019-07-04] MEDS: glipiZIDE 10 MG TAB PO SCH (06:33)
--- NOTE | 2019-07-04 06:33 | XR ---
EXAMINATION TYPE: XR chest 1V portable DATE OF EXAM: 07/04/2019 HISTORY: Pneumonia. REFERENCE: Previous study dated 07/03/2019. FINDINGS: Heart size upper limits of normal. There is slightly improved aeration at the left lung bas e. There continues be left effusion. IMPRESSION: IMPROVED AERATION, LEFT LUNG BASE.
[2019-07-04] MEDS: BUDESONIDE 0.5 MG/2 ML NEBU INHALATION SCH ×2 (07:58→20:14)
[2019-07-04] MEDS: IPRATROPIUM-ALBUTEROL 3 ML NEB INHALATION SCH ×4 (07:59→20:14)
--- NOTE | 2019-07-04 09:44 | P.PN ---
Subjective Progress Note Date: 07/04/19 69-year-old morbidly obese male one of Dr. Holland patient was known to have history of A. fib with RVR, coronary disease, post myocardial infarction, obstructive sleep apnea, vascular disorders, severe COPD with FEV1 of 20% only, recurrence alive slower 70, hyperglycemia and CAD post PCI and stent placement in the past who was the hospital last time few month ago for A. fib with RVR was not well-controlled for long time was supposed to have ablation and see Dr Sandoval at the time. He presented to [facility] department in the evening of 06/29/2019 with worsening dyspnea and shortness of breath mild confusion severe wheezes with cough and significant palpitation pulse rate running over 160 bpm time. According to him and his started as an increased cellulitis and edema of the lower extremity worse in the right leg than the left side with low-grade temperature the time his symptoms become much worse and developed to have significant spasm of the bronchial airway with worsening wheezes and significant dyspnea with hypoxia and severe palpitation and arrhythmia. [facility] drip blood pressure dropped down significantly was taking off Cardizem drip and started him 0.9 normal saline bolus his blood pressure had improved with his elevated white blood cell spasm of the airway and COPD exacerbation was placed on BiPAP consult cardiology and pulmonary patient pulse rate has improved with metoprolol and Cardizem oral he is still on anticoagulation at this time patient was started on vancomycin and Levaquin. 07/01: Patient had significant episode of A. fib with RVR pulse rate was running very high today had responded to medical management afterward. Patient is off BiPAP he still having bronchospasm also had fluid overload we will do 1 dose of Lasix 40 mg daily today. Patient remain on vancomycin and still on Levaquin for cellulitis and bilateral pneumonitis. Still on high dose of steroid with good response compared to yesterday. 07/02: Heart rate is running in the 90s to 110, pulse ox 93% on 3 L nasal cannula, blood pressure 110/76, afebrile. Patient remains in atrial fibrillation. Cardiology has increased Cardizem dose. Patient is currently on aspirin and eliquis. He did have a small amount of rectal bleeding possibly fro m hemorrhoids when he passes gas. Blood sugars have been elevated for which Dr. Artinian is indicated in Levemir 10 units and we will also add in scheduled NovoLog 5 with each meal. He is currently on antibiotics the form of cefepime, Levaquin and vancomycin. WBC 8.8, hemoglobin 14.8, platelet count is 136. Electrolytes and renal function within normal limits. Urine culture is positive for Enterococcus faecalis susceptible to vancomycin and Levaquin. Patient received 1 dose of IV Lasix yesterday and urinated 1 L following that. His urine output has been adequate. 07/03: Patient remains in the intensive care unit. He has been cleared by Dr. Berumen to transfer to the cardiac stepdown unit. Monitor remains atrial fibrillation. Heart rate has been in the 80s and 90s. Pulse ox 94% on 3 L nasal cannula, afebrile, blood pressure 116/62. Patient is reaching 1250 ml on incentive spirometry. Repeat lab work reveals white count 7.6, hemoglobin 13.9, platelet count 145. BUN 21 creatinine 0.73, blood sugars running in the 200s. Right lower extremity is less red and edematous with notable improvement of cellulitis. Discharge plan is to return home. We'll add in consult for PT to ensure patient is safe for discharge home. 07/04: Patient is sitting up in his recliner his feeling a bit better today he continues to be in atrial fibrillation, he used BiPAP last night, he hasn't had a bowel movement he denies any chest pain less shortness breath he continues to have some coughing minimal phlegm production, he has no pain in his right lower extremity cellulitis is much better. Review of Systems CONSTITUTIONAL: Morbidly obese and no respiratory distress. EYES: No icterus sclerae, no conjunctivitis. EARS, NOSE, MOUTH, THROAT, and FACE: No sore throat, lymphadenopathy, carotid bruits or deformity. RESPIRATORY: Positive shortness of breath cough wheezes with significant bronchospasm. CARDIOVASCULAR: Positive shortness of breath palpitation PND orthopnea no angina. GASTROINTESTINAL: No Abd pain, Nausea or vomiting, no Diarrhea or constipation, No GI Bleed, no distention or masses. GENITOURINARY: Negative for Hematuria or UTI, no kidney stones. INTEGUMENT/BREAST: Cellulitis of the lower extremity improving. HEMATOLOGIC/LYMPHATIC: Negative for bleed or purpura. MUSCULOSKELTAL: Worsening pain and discomfort of the lower some especially in the right leg. NEURLOGICAL: No LOC, Sz or syncope, blurred vision dizziness or abnormality.. BEHAVIORAL/PSYCH: Negative. ENDOCRINE: Negative. Objective - Vital Signs Vital signs: Vital Signs Temp 98.6 F 07/04/19 00:00 Pulse 79 07/04/19 00:00 Resp 16 07/04/19 02:00 BP 100/61 07/04/19 00:00 Pulse Ox 97 07/04/19 02:00 Intake & Output 07/03/19 07/03/19 07/04/19 06:59 18:59 06:59 Intake Total 720 580 220 Output Total 825 600 700 Balance -105 -20 -480 Weight 126.8 kg Intake: IV 220 90 220 .9 120 90 120 Cefepime 2 gm In Sodium 100 100 Chloride 0.9% 100 ml @ 200 mls/hr IVPB Q12HR JOE Rx#:[id number] Intake, IV Titration 500 Amount Vancomycin 1,750 mg In 500 Sodium Chloride 0.9% 500 ml 500 ml @ 167 mls/hr IVPB Q8H JOE Rx#: [id number] Oral 490 Output: Urine 825 600 700 Other: Voiding Method Urinal Urinal Urinal # Voids 1 1 1 - Exam General Appearance: Alert, cooperative, no distress, resting in ICU in a rec liner with legs elevated Neck HEENT: Supple, no lymphadenopathy, no thyroid enlargement, no carotid bruits. Lungs: Decrease expansion with deep inspiration positive fine rhonchi, few expiratory wheezes, minimal intercostal retractions. Chest Wall: Decrease expansion with deep inspiration no tenderness Heart: Irregular rhythm and rate positive S3 positive ejection murmur with no gallop. Back: Symmetric, no curvature, ROM normal, no CVA tenderness. Abdomen: Soft, non-tender, bowel sounds active all four quadrants, no masses, no organomegaly. Extremities: 1+ edema, decreased erythema with chronic vascular cellulitis. Pulses: 2+ and symmetric. Skin: Right lower extremity is wrapped with an Greg wrap due to cellulitis of the right lower extremity. Neurologic: Alert oriented x3 cranial nerves II through XII intact, no motor deficit, no abnormal balance or gait. - Labs CBC & Chem 7: 07/04/19 05:51 07/04/19 05:51 Labs: Abnormal Lab Results - Last 24 Hours (Table) 07/03/19 07/03/19 07/03/19 Range/Units 04:39 04:39 06:36 RBC 4.20 L (4.30-5.90) m/uL Plt Count 145 L (150-450) k/uL Lymphocytes # 0.3 L (1.0-4.8) k/uL Chloride 108 H (98-107) mmol/L BUN 21 H (9-20) mg/dL Glucose 255 H (74-99) mg/dL POC Glucose (mg/dL) 226 H (75-99) mg/dL 07/03/19 07/03/19 07/03/19 Range/Units 11:54 16:47 20:31 RBC (4.30-5.90) m/uL Plt Count (150-450) k/uL Lymphocytes # (1.0-4.8) k/uL Chloride (98-107) mmol/L BUN (9-20) mg/dL Glucose (74-99) mg/dL POC Glucose (mg/dL) 188 H 230 H 251 H (75-99) mg/dL Microbiology - Last 24 Hours (Table) 06/29/19 13:20 Blood Culture - Preliminary Blood No Growth after 96 hours Assessment and Plan Assessment: Assessment and Plan Plan: 1 acute hypoxic respiratory failure secondary to Combination of A. fib with RVR, COPD exacerbation, pneumonia, possible gram-negative pneumonia and severe bronchitis with mild fluid overload, will continue O2 and updraft treatment consult pulmonary. 2 COPD exacerbation: Causing chronic on acute respiratory failure, patient will continue oral prednisone along with nebulizer treatment on regular basis. 4 A. fib with RVR, chronic atrial fibrillation: Still on metoprolol and diltiazem no amiodarone or any other agent patient had responded well to it hopefully with the treatment for infection and taking care of hypoxia might improve A. fib. 5 acute cellulitis of the lower extremity. We'll continue with Levaquin as well as cefepime for now then the patient may be switched to oral antibiotic when he is ready to go home. 6 severe bronchitis with early pneumonitis: Continue antibiotic. 7 obstructive sleep apnea: Patient 3 L nasal cannula. 8 hyperlipidemia: On atorvastatin 80 mg daily. 9 CAD post angioplasty and stent placement patient seen cardiology is still on secondary prevention. 10 type 2 diabetes uncontrolled with hyperglycemia secondary to steroids: On the glipizide and metformin continue Accu-Chek sliding scales coverage and titrate insulin if needed specially been on steroid. Levemir 10 units daily and NovoLog scheduled 5 units with each meal added. 11 hypertension: Was on diltiazem previously watch for any low blood pressure. 12. Abdominal aortic aneurysm monitored by vascular surgery. 13. Acute enterococcus urinary tract infection, present on admission. Enterococcus faecalis sensitive to everything except tetracycline continue with cefepime for now. Discharge plan: Home
[2019-07-04] MEDS: ASPIRIN 81 MG PO SCH (10:22)
[2019-07-04] MEDS: METOPROLOL TARTRATE 25 MG TAB PO SCH ×2 (10:22→20:46)
[2019-07-04] MEDS: APIXABAN 5 MG TAB PO SCH ×2 (10:22→20:46)
[2019-07-04] MEDS: DIGOXIN 250 MCG TAB PO SCH (10:22)
[2019-07-04] MEDS: DILTIAZEM ORAL 30 MG TAB PO SCH ×3 (10:22→20:46)
[2019-07-04] MEDS: CEFEPIME 2 GM in SODIUM CHLORIDE 0.9% 100 ML IVPB SCH ×2 (10:23→20:46)
[2019-07-04] MEDS: predniSONE 20 MG TAB PO SCH (10:23)
[2019-07-04 12:10] LABS: Glucose,Whole Blood 111 mg/dL (75-99)
[2019-07-04] MEDS: LEVOFLOXACIN 750 MG TAB PO SCH (12:24)
--- NOTE | 2019-07-04 12:30 | P.PN ---
Subjective Progress Note Date: 07/04/19 This is a 69-year-old male patient with well-known to me. The patient came into the emergency department today because of worsening shortness of breath. He was slightly confused, bronchospastic and wheezy and short of breath and he was also in atrial fibrillation with rapid ventricular response. Note that the patient has COPD which is severe with a baseline FEV1 of 28% of predicted. He has obstructive sleep apnea with an AHI of 17. He suffers from chronic atrial fibrillation and coronary artery disease. His last hospitalization was back in October 2018 when he came in for a similar presentation of shortness of breath and a flutter and he was given Cardizem drip for rate control. During this current admission, the patient was started on a Cardizem drip. He became hypotensive. The Cardizem drip was discontinued briefly. He was given a total of 2.5 L of normal saline bolus. He was placed on a BiPAP for respiratory support. A CT angiogram was done that showed no evidence of any pulmonary embolism. And this was done and FiO2 of 40% with a pressures of 10/5 cm of water. His white cell count is at 11.7. His lactic acid level is at 2.5. He has some erythema and swelling of the left lower extremity. Doppler of the lower extremity was done and the patient did not have any DVT. The patient is being considered for encephalitis of the left lower extremity. Currently he is comfortable on the BiPAP. Today's evaluation of 06/30/2019 the patient is feeling better compared to angy mckay. The patient is less short of breath. The patient is off the BiPAP and currently is on oxygen at night him 3 L per minute nasal cannula. The patient is not having any chest pain. His appetite is improved and currently his heart is under control as him being on a Cardizem drip at 10 mg an hour for rate control. He is also on antibiotic ventilation with Eliquis. Function is stable. Blood sugars are slightly elevated and the patient is currently off his gout controlled on metformin. No fever. No chills. Significant improvement in the right lower extremity cellulitis. No other specific complaints otherwise for now. Chest x-ray showing some developing infiltrate along the left lower lobe/lingular area. There is a concern of a limited pneumonia and that involved area. No significant leukocytosis. Cultures are still pending for now. On today's evaluation of 07/01/2019, I'm seeing this patient for a follow-up. The patient is a bit more short of breath compared to yesterday. His chest x- rays clear to showing a left lung consolidation suggestive of an underlying pneumonia. The patient is still being treated for a right lower extremity cellulitis. Enterococcus group D was also cultured the urine. Currently is on a combination of Levaquin and vancomycin. IV cefepime was added as the patient was felt to be slightly worse in terms of his pulmonary status. He has a congested cough. I asked him to give me a sputum sample and the sample was collected today. No fever. No chills and altered mentation. He is off the BiPAP for known history on oxygen at 4 L per minute nasal cannula. His white cell count of 10.9. Renal function is stable. He is afebrile. He is still in atrial fibrillation. On and off is having issues with related to tachycardia. The patient remains on long-term articulation with Aeromot. The patient is also on a combination of Cardizem 60 mg by mouth 3 times a day and metoprolol 25 g by mouth twice a day. Digoxin was also added by cardiology for rate control. I felt that on examination he was slightly more bronchospastic and wheezy and I recommended the initiation of IV Solu-Medrol and will pay close attention on his blood sugar control. His phlegm bronchodilators. He is on DuoNeb and Pulmicort Respules. On 07/02/2019 I'm seeing this patient for a follow-up. The patient is less short of breath compared to yesterday. Is calm and comfortable and hemodynamically stable. He still having issues with A. fib RVR and he is on a combination of metoprolol and Cardizem and digoxin was added yesterday. His morning rate is in the 05/26/2020 range. His chest x-ray from today showing no acute infiltrates. There is elevation of the left hemidiaphragm. Right lung is clear. There is left lung infiltrate perihilar and left lower lobe. The patient is currently on oxygen at 3 L per minute nasal cannula. He is producing adequate amount of urine output. Antibiotic coverage including a combination of cefepime vancomycin and Levaquin. He is on IV Solu-Medrol. Sputum Gram stain and culture was checked and the results are still pending. Right lower extremity several minutes is also improved on today's evaluation. He is tolerating his diet. No nausea. No vomiting. No abdominal pain. No chest pain. He has some mild hyperglycemia that needs to be controlled more tight. On 07/03/2019 I'm seeing Laron for a follow-up. He is already feeling better. Is sitting up on a chair. No major respiratory difficulties. On the chest x- ray from today shows improvement in the aeration of left lower lobe. His right lower extremity cellulitis also improving. Edema is improving. He is and accommodation of antibiotics including cefepime and Levaquin and vancomycin. He is on no pressors. Heart is under better control. No fever. No chills. He is on IV Solu Medrol regarding COPD exacerbation. Sputum Gram stain and cultures still negative for now. Enterococcus group D was cultured in the urine. No other significant events overnight. He is awake and alert. He is tolerating his diet. No altered mentation. No chest pain. No palpitations. On 07/04/2019 the patient is out of the intensive care unit. He is feeling well. No fever. No significant tachycardia. Chest x-ray findings are stable. He is on prednisone burst taper. He is also on atropine and Levaquin. No nausea. No vomiting. No abdominal pain. Lower extremities are swollen. The cellulitis improved. No other complaints otherwise for now. Is tolerating his diet. He is using incentive spirometer. Objective - Vital Signs Vital signs: Vital Signs Temp 98 F 07/04/19 11:24 Pulse 94 07/04/19 11:48 Resp 16 07/04/19 11:24 BP 125/69 07/04/19 11:24 Pulse Ox 99 07/04/19 11:24 Intake & Output 07/03/19 07/04/19 07/04/19 18:59 06:59 18:59 Intake Total 580 250 528 Output Total 600 850 0 Balance -20 -600 528 Weight 129.4 kg Intake: IV 90 250 50 .9 90 150 20 Cefepime 2 gm In Sodium 100 Chloride 0.9% 100 ml @ 200 mls/hr IVPB Q12HR JOE Rx#:[id number] Invasive Line 5 30 Oral 490 478 Output: Urine 600 850 0 Other: Voiding Method Urinal Urinal Urinal # Voids 1 1 1 - Exam General Appearance no diaphoresis, able be full sentences and the patient is less short of breath currently off liters of oxygen by nasal cannula. Head exam was generally normal. There was no scleral icterus or corneal arcus. Mucous membranes were moist. Neck was supple and without jugular venous distension, thyromegaly, or carotid bruits. Carotids were easily palp Chest the patient has a bit of chest addition to diminished breath sound bilaterally along with prolongation of the expiratory phase of breathing and diffuse expiratory wheezes throughout the lung his bilaterally and this is significantly improved compared to yesterday. Also crackles in the left lung have improved on today's evaluation. Heart no right ventricular heave, no distant heart sounds, no s3 gallop, and the patient is irregular rate and rhythm. This is consistent with atrial fibrillation. GI bowel sounds: Bowel sounds present.Abdominal exam revealed normal bowel sounds. The abdomen was soft, non-tender, and without masses, organomegaly, or appreciable enlargement of the abdominal aorta. Extremities no cyanosis, no clubbing, edema, Neurologic no decreased mental status, no somnolence, no confusion Examination of the skin revealed no evidence of significant rashes, suspicious appearing nevi or other concerning lesions. There is increased erythema of the right lower extremity along with warmth and redness consistent with cellulitis on top of his chronic venous stasis involving the right lower extremity. His evaluation in the right lower extremity subluxes improving. The patient is less erythematous and warm compared to yesterday. - Labs CBC & Chem 7: 07/04/19 05:51 07/04/19 05:51 Labs: Abnormal Lab Results - Last 24 Hours (Table) 07/03/19 07/03/19 07/04/19 Range/Units 16:47 20:31 05:51 RBC 4.24 L (4.30-5.90) m/uL Lymphocytes # 0.3 L (1.0-4.8) k/uL Chloride (98-107) mmol/L BUN (9-20) mg/dL Glucose (74-99) mg/dL POC Glucose (mg/dL) 230 H 251 H (75-99) mg/dL 07/04/19 07/04/19 07/04/19 Range/Units 05:51 06:20 12:09 RBC (4.30-5.90) m/uL Lymphocytes # (1.0-4.8) k/uL Chloride 108 H (98-107) mmol/L BUN 21 H (9-20) mg/dL Glucose 213 H (74-99) mg/dL POC Glucose (mg/dL) 199 H 111 H (75-99) mg/dL Microbiology - Last 24 Hours (Table) 06/29/19 13:20 Blood Culture - Preliminary Blood No Growth after 96 hours Assessment and Plan Plan: Assessment 1 acute COPD exacerbation with secondary respiratory failure. The patient is developing a left lung consolidation/pneumonia. The follow-up chest x-ray from today shows improved aeration of the left lower lobe. improved and currently is back on a medical floor. 2 chronic obstructive lung disease severe COPD with an FEV1 of 28% of predicted. 3 obstructive sleep apnea syndrome The patient has an apnea popping index of 17 currently is is not utilizing CPAP therapy has been off treatment. 4 right lower eczematous cellulitis, improved 5 chronic atrial fibrillation with rapid ventricular response. Briefly encountered hypotension with Cardizem infusion and the patient was given 2.5 L of bolus of IV fluid in the ED. Echocardiogram from his most recent admission showed a preserved LV function without any significant valvular abnormalities. Patient has a preserved LV function with an ejection fraction of 50-55%. RV is mildly dilated. Right ventricular systolic pressures around 34 consistent with mild pulmonary hypertension related to his chronic lung disease. 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 13 mild lactic acidosis, improving 14 steroid-induced hyperglycemia. 15 obesity Plan Continue Levaquin and cefepime. Continue prednisone burst taper. He is currently on room air oxygen with a pulse ox of 93%. Ambulate. Increased level of activity. Possible discharge within the next 48 hours. We'll continue to follow.
[2019-07-04 16:53] LABS: Glucose,Whole Blood 159 mg/dL (75-99)
[2019-07-04] MEDS: ATORVASTATIN 80 MG TAB PO SCH (20:46)
[2019-07-04 21:09] LABS: Glucose,Whole Blood 194 mg/dL (75-99)
[2019-07-05 06:35] LABS: Basophils % (A) 1 %; Eosinophils % (A) 0 %; HCT 39.7 % (39.0-53.0); HGB 13.7 gm/dL (13.0-17.5); Lymphocytes # (A) 0.5 k/uL (1.0-4.8); Lymphocytes % (A) 7 %; MCHC 34.6 g/dL (31.0-37.0); MCV 98.3 fL (80.0-100.0); Mean Platelet Volume 6.6; Monocytes # (A) 0.4 k/uL (0-1.0); Monocytes % (A) 5 %; Neutrophils # (A) 6.1 k/uL (1.3-7.7); Neutrophils % (A) 86 %; Platelet Count 137 k/uL (150-450); RBC 4.04 m/uL (4.30-5.90); RDW 13.8 % (11.5-15.5); WBC 7.1 k/uL (3.8-10.6)
[2019-07-05 06:39] LABS: African American GFR (CKD) >90 (>60 ml/min/1.73 sqM); Anion Gap -1 mmol/L; Blood Urea Nitrogen 20 mg/dL (9-20); Calcium 8.8 mg/dL (8.4-10.2); Carbon Dioxide 34 mmol/L (22-30); Chloride 107 mmol/L (98-107); Glucose 174 mg/dL (74-99); Non-African American GFR(CKD) >90 (>60 ml/min/1.73 sqM); Potassium 4.4 mmol/L (3.5-5.1); Sodium 140 mmol/L (137-145)
[2019-07-05] MEDS: PANTOPRAZOLE 40 MG TABLET PO SCH (06:51)
[2019-07-05 07:19] LABS: Glucose,Whole Blood 147 mg/dL (75-99)
[2019-07-05] MEDS: glipiZIDE 10 MG TAB PO SCH (07:24)
[2019-07-05] MEDS: INSULIN DETEMIR (LEVEMIR) 100 UNIT/ML SYR SQ SCH (07:24)
[2019-07-05] MEDS: INSULIN ASPART (NovoLOG) 100 UNIT/ML VIAL SQ SCH ×7 (07:25→21:09)
--- NOTE | 2019-07-05 07:39 | XR ---
EXAMINATION TYPE: XR chest 1V portable DATE OF EXAM: 07/05/2019 HISTORY: Pneumonia. REFERENCE: Previous study dated 07/04/2019. FINDINGS: There continues to be left basilar airspace disease. There is a small left effusion. The ri ght lung is clear. The heart does not appear enlarged. IMPRESSION: CONTINUING LEFT BASILAR AIRSPACE DISEASE WITH A SMALL, CONCOMITANT EFFUSION.
[2019-07-05] MEDS: METOPROLOL TARTRATE 25 MG TAB PO SCH ×2 (08:01→20:38)
[2019-07-05] MEDS: CEFEPIME 2 GM in SODIUM CHLORIDE 0.9% 100 ML IVPB SCH ×2 (08:01→20:38)
[2019-07-05] MEDS: ASPIRIN 81 MG PO SCH (08:01)
[2019-07-05] MEDS: DIGOXIN 250 MCG TAB PO SCH (08:01)
[2019-07-05] MEDS: predniSONE 20 MG TAB PO SCH (08:02)
[2019-07-05] MEDS: APIXABAN 5 MG TAB PO SCH ×2 (08:02→20:38)
[2019-07-05] MEDS: DILTIAZEM ORAL 30 MG TAB PO SCH ×3 (08:02→20:38)
[2019-07-05] MEDS: BUDESONIDE 0.5 MG/2 ML NEBU INHALATION SCH ×2 (08:41→19:58)
[2019-07-05] MEDS: IPRATROPIUM-ALBUTEROL 3 ML NEB INHALATION SCH ×4 (08:41→19:58)
--- NOTE | 2019-07-05 10:12 | P.PN ---
Subjective Progress Note Date: 07/05/19 69-year-old morbidly obese male one of Dr. Holland patient was known to have history of A. fib with RVR, coronary disease, post myocardial infarction, obstructive sleep apnea, vascular disorders, severe COPD with FEV1 of 20% only, recurrence alive slower 70, hyperglycemia and CAD post PCI and stent placement in the past who was the hospital last time few month ago for A. fib with RVR was not well-controlled for long time was supposed to have ablation and see Dr Sandoval at the time. [facility] in the evening of 06/29/2019 with worsening dyspnea and shortness of breath mild confusion severe wheezes with cough and significant palpitation pulse rate running over 160 bpm time. According to him and his started as an increased cellulitis and edema of the lower extremity worse in the right leg than the left side with low-grade temperature the time his symptoms become much worse and developed to have significant spasm of the bronchial airway with worsening wheezes and significant dyspnea with hypoxia and severe palpitation and arrhythmia. Patient was [facility] started on Cardizem drip blood pressure dropped down significantly was taking off Cardizem drip and started him 0.9 normal saline bolus his blood pressure had improved with his elevated white blood cell spasm of the airway and COPD exacerbation was placed on BiPAP consult cardiology and pulmonary patient pulse rate has improved with metoprolol and Cardizem oral he is still on anticoagulation at this time patient was started on vancomycin and Levaquin. 07/01: Patient had significant episode of A. fib with RVR pulse rate was running very high today had responded to medical management afterward. Patient is off BiPAP he still having bronchospasm also had fluid overload we will do 1 dose of Lasix 40 mg daily today. Patient remain on vancomycin and still on Levaquin for cellulitis and bilateral pneumonitis. Still on high dose of steroid with good response compared to yesterday. 07/02: Heart rate is running in the 90s to 110, pulse ox 93% on 3 L nasal cannula, blood pressure 110/76, afebrile. Patient remains in atrial fibrillation. Cardiology has increased Cardizem dose. Patient is currently on aspirin and eliquis. He did have a small amount of rectal bleeding possibly fro m hemorrhoids when he passes gas. Blood sugars have been elevated for which Dr. Artinian is indicated in Levemir 10 units and we will also add in scheduled NovoLog 5 with each meal. He is currently on antibiotics the form of cefepime, Levaquin and vancomycin. WBC 8.8, hemoglobin 14.8, platelet count is 136. Electrolytes and renal function within normal limits. Urine culture is positive for Enterococcus faecalis susceptible to vancomycin and Levaquin. Patient received 1 dose of IV Lasix yesterday and urinated 1 L following that. His urine output has been adequate. 07/03: Patient remains in the intensive care unit. He has been cleared by Dr. Berumen to transfer to the cardiac stepdown unit. Monitor remains atrial fibrillation. Heart rate has been in the 80s and 90s. Pulse ox 94% on 3 L nasal cannula, afebrile, blood pressure 116/62. Patient is reaching 1250 ml on incentive spirometry. Repeat lab work reveals white count 7.6, hemoglobin 13.9, platelet count 145. BUN 21 creatinine 0.73, blood sugars running in the 200s. Right lower extremity is less red and edematous with notable improvement of cellulitis. Discharge plan is to return home. We'll add in consult for PT to ensure patient is safe for discharge home. 07/04: Patient is sitting up in his recliner his feeling a bit better today he continues to be in atrial fibrillation, he used BiPAP last night, he hasn't had a bowel movement he denies any chest pain less shortness breath he continues to have some coughing minimal phlegm production, he has no pain in his right lower extremity cellulitis is much better. 07/05: Patient is sitting up in chair he is doing a lot better today he denies any chest pain less shortness breath he has less coughing, he has no fever or chills he used his BiPAP all night long, he does not need to have his leg wrapped as his cellulitis has resolved completed. Review of Systems CONSTITUTIONAL: Morbidly obese and no respiratory distress. EYES: No icterus sclerae, no conjunctivitis. EARS, NOSE, MOUTH, THROAT, and FACE: No sore throat, lymphadenopathy, carotid bruits or deformity. RESPIRATORY: Positive shortness of breath cough wheezes with significant bronchospasm. CARDIOVASCULAR: Positive shortness of breath palpitation PND orthopnea no an irma. GASTROINTESTINAL: No Abd pain, Nausea or vomiting, no Diarrhea or constipation, No GI Bleed, no distention or masses. GENITOURINARY: Negative for Hematuria or UTI, no kidney stones. INTEGUMENT/BREAST: Cellulitis of the lower extremity improving. HEMATOLOGIC/LYMPHATIC: Negative for bleed or purpura. MUSCULOSKELTAL: Worsening pain and discomfort of the lower some especially in the right leg. NEURLOGICAL: No LOC, Sz or syncope, blurred vision dizziness or abnormality.. BEHAVIORAL/PSYCH: Negative. ENDOCRINE: Negative. Objective - Vital Signs Vital signs: Vital Signs Temp 97.6 F 07/05/19 04:00 Pulse 85 07/05/19 04:00 Resp 18 07/05/19 04:00 BP 132/79 07/05/19 04:00 Pulse Ox 95 07/05/19 04:00 Intake & Output 07/04/19 07/04/19 07/05/19 06:59 18:59 06:59 Intake Total 250 1658 Output Total 850 0 250 Balance -600 1658 -250 Weight 129.4 kg 126.6 kg Intake: IV 250 60 .9 150 20 Cefepime 2 gm In Sodium 100 Chloride 0.9% 100 ml @ 200 mls/hr IVPB Q12HR [facility] Rx#:[id number] Invasive Line 5 40 Oral 1598 Output: Urine 850 0 250 Other: Voiding Method Urinal Urinal Urinal # Voids 1 1 1 - Exam General Appearance: Alert, cooperative, no distress, resting in ICU in a recliner with legs elevated Neck HEENT: Supple, no lymphadenopathy, no thyroid enlargement, no carotid bruits. Lungs: Decrease expansion with deep inspiration positive fine rhonchi, few ex piratory wheezes, minimal intercostal retractions. Chest Wall: Decrease expansion with deep inspiration no tenderness Heart: Irregular rhythm and rate positive S3 positive ejection murmur with no gallop. Back: Symmetric, no curvature, ROM normal, no CVA tenderness. Abdomen: Soft, non-tender, bowel sounds active all four quadrants, no masses, no organomegaly. Extremities: 1+ edema, decreased erythema with chronic vascular cellulitis. Pulses: 2+ and symmetric. Skin: Right lower extremity is wrapped with an Greg wrap due to cellulitis of the right lower extremity. Neurologic: Alert oriented x3 cranial nerves II through XII intact, no motor deficit, no abnormal balance or gait. - Labs CBC & Chem 7: 07/05/19 06:10 07/05/19 06:10 Labs: Abnormal Lab Results - Last 24 Hours (Table) 07/04/19 07/04/19 07/04/19 Range/Units 05:51 05:51 06:20 RBC 4.24 L (4.30-5.90) m/uL Lymphocytes # 0.3 L (1.0-4.8) k/uL Chloride 108 H (98-107) mmol/L BUN 21 H (9-20) mg/dL Glucose 213 H (74-99) mg/dL POC Glucose (mg/dL) 199 H (75-99) mg/dL 07/04/19 07/04/19 07/04/19 Range/Units 12:09 16:51 21:05 RBC (4.30-5.90) m/uL Lymphocytes # (1.0-4.8) k/uL Chloride (98-107) mmol/L BUN (9-20) mg/dL Glucose (74-99) mg/dL POC Glucose (mg/dL) 111 H 159 H 194 H (75-99) mg/dL Microbiology - Last 24 Hours (Table) 06/29/19 13:20 Blood Culture - Preliminary Blood No Growth after 120 hours Assessment and Plan Assessment: Assessment and Plan Plan: 1 acute hypoxic respiratory failure secondary to Combination of A. fib with RVR, COPD exacerbation, pneumonia, possible gram-negative pneumonia and severe bronchitis with mild fluid overload, will continue O2 and updraft treatment consult pulmonary. 2 COPD exacerbation: Causing chronic on acute respiratory failure, patient will continue oral prednisone along with nebulizer treatment on regular basis. 4 A. fib with RVR, chronic atrial fibrillation: Still on metoprolol and diltiazem no amiodarone or any other agent patient had responded well to it hopefully with the treatment for infection and taking care of hypoxia might improve A. fib. 5 acute cellulitis of the lower extremity. We'll continue with Levaquin as well as cefepime for now then the patient may be switched to oral antibiotic when he is ready to go home. 6 severe bronchitis with early pneumonitis: Continue antibiotic. 7 obstructive sleep apnea: Patient 3 L nasal cannula. 8 hyperlipidemia: On atorvastatin 80 mg daily. 9 CAD post angioplasty and stent placement patient seen cardiology is still on secondary prevention. 10 type 2 diabetes uncontrolled with hyperglycemia secondary to steroids: On the glipizide and metformin continue Accu-Chek sliding scales coverage and titrate insulin if needed specially been on steroid. Levemir 10 units daily and NovoLog scheduled 5 units with each meal added. 11 hypertension: Was on diltiazem previously watch for any low blood pressure. 12. Abdominal aortic aneurysm monitored by vascular surgery. 13. Acute enterococcus urinary tract infection, present on admission. Enterococcus faecalis sensitive to everything except tetracycline continue with cefepime for now. Discharge plan: Home in 1 or 2 days.
--- NOTE | 2019-07-05 12:27 | PN ---
PROGRESS NOTE Larno is feeling better this morning. Remains in atrial fibrillation. Heart rate is around 89 beats per minute. Blood pressure is 129/88. He has some cough, but overall, he is feeling a lot better. EXAM: Comfortable at rest. Vital signs are stable. Chest exam reveals diminished air entry at the bases with occasional rhonchi. Heart exam reveals first and second heart sounds, irregular rhythm. Abdomen is soft. Exam of the extremities reveals mild edema peripheral pulses are felt. He has mild cellulitis over the right leg. LABS: Show a hemoglobin of 13.7, platelet count is 137, potassium is 4.4. Creatinine is 0.7. ASSESSMENT: Persistent atrial fibrillation with controlled ventricular rate. PLAN: Continue the patient on Eliquis, aspirin, Lipitor, Cardizem 90 t.i.d., and Lopressor 25 b.i.d. MMODL / BATOOLN: [id number] /
[2019-07-05] MEDS: LEVOFLOXACIN 750 MG TAB PO SCH (12:38)
[2019-07-05 12:43] LABS: Glucose,Whole Blood 90 mg/dL (75-99)
--- NOTE | 2019-07-05 15:22 | P.PN ---
Subjective Progress Note Date: 07/05/19 This is a 69-year-old male patient with well-known to me. The patient came into the emergency department today because of worsening shortness of breath. He was slightly confused, bronchospastic and wheezy and short of breath and he was also in atrial fibrillation with rapid ventricular response. Note that the patient has COPD which is severe with a baseline FEV1 of 28% of predicted. He has obstructive sleep apnea with an AHI of 17. He suffers from chronic atrial fibrillation and coronary artery disease. His last hospitalization was back in October 2018 when he came in for a similar presentation of shortness of breath and a flutter and he was given Cardizem drip for rate control. During this current admission, the patient was started on a Cardizem drip. He became hypotensive. The Cardizem drip was discontinued briefly. He was given a total of 2.5 L of normal saline bolus. He was placed on a BiPAP for respiratory support. A CT angiogram was done that showed no evidence of any pulmonary embolism. And this was done and FiO2 of 40% with a pressures of 10/5 cm of water. His white cell count is at 11.7. His lactic acid level is at 2.5. He has some erythema and swelling of the left lower extremity. Doppler of the lower extremity was done and the patient did not have any DVT. The patient is being considered for encephalitis of the left lower extremity. Currently he is comfortable on the BiPAP. Today's evaluation of 06/30/2019 the patient is feeling better compared to angy mckay. The patient is less short of breath. The patient is off the BiPAP and currently is on oxygen at night him 3 L per minute nasal cannula. The patient is not having any chest pain. His appetite is improved and currently his heart is under control as him being on a Cardizem drip at 10 mg an hour for rate control. He is also on antibiotic ventilation with Eliquis. Function is stable. Blood sugars are slightly elevated and the patient is currently off his gout controlled on metformin. No fever. No chills. Significant improvement in the right lower extremity cellulitis. No other specific complaints otherwise for now. Chest x-ray showing some developing infiltrate along the left lower lobe/lingular area. There is a concern of a limited pneumonia and that involved area. No significant leukocytosis. Cultures are still pending for now. On today's evaluation of 07/01/2019, I'm seeing this patient for a follow-up. The patient is a bit more short of breath compared to yesterday. His chest x- rays clear to showing a left lung consolidation suggestive of an underlying pneumonia. The patient is still being treated for a right lower extremity cellulitis. Enterococcus group D was also cultured the urine. Currently is on a combination of Levaquin and vancomycin. IV cefepime was added as the patient was felt to be slightly worse in terms of his pulmonary status. He has a congested cough. I asked him to give me a sputum sample and the sample was collected today. No fever. No chills and altered mentation. He is off the BiPAP for known history on oxygen at 4 L per minute nasal cannula. His white cell count of 10.9. Renal function is stable. He is afebrile. He is still in atrial fibrillation. On and off is having issues with related to tachycardia. The patient remains on long-term articulation with Unveil. The patient is also on a combination of Cardizem 60 mg by mouth 3 times a day and metoprolol 25 g by mouth twice a day. Digoxin was also added by cardiology for rate control. I felt that on examination he was slightly more bronchospastic and wheezy and I recommended the initiation of IV Solu-Medrol and will pay close attention on his blood sugar control. His phlegm bronchodilators. He is on DuoNeb and Pulmicort Respules. On 07/02/2019 I'm seeing this patient for a follow-up. The patient is less short of breath compared to yesterday. Is calm and comfortable and hemodynamically stable. He still having issues with A. fib RVR and he is on a combination of metoprolol and Cardizem and digoxin was added yesterday. His morning rate is in the 05/26/2020 range. His chest x-ray from today showing no acute infiltrates. There is elevation of the left hemidiaphragm. Right lung is clear. There is left lung infiltrate perihilar and left lower lobe. The patient is currently on oxygen at 3 L per minute nasal cannula. He is producing adequate amount of urine output. Antibiotic coverage including a combination of cefepime vancomycin and Levaquin. He is on IV Solu-Medrol. Sputum Gram stain and culture was checked and the results are still pending. Right lower extremity several minutes is also improved on today's evaluation. He is tolerating his diet. No nausea. No vomiting. No abdominal pain. No chest pain. He has some mild hyperglycemia that needs to be controlled more tight. On 07/03/2019 I'm seeing Laron for a follow-up. He is already feeling better. Is sitting up on a chair. No major respiratory difficulties. On the chest x- ray from today shows improvement in the aeration of left lower lobe. His right lower extremity cellulitis also improving. Edema is improving. He is and accommodation of antibiotics including cefepime and Levaquin and vancomycin. He is on no pressors. Heart is under better control. No fever. No chills. He is on IV Solu Medrol regarding COPD exacerbation. Sputum Gram stain and cultures still negative for now. Enterococcus group D was cultured in the urine. No other significant events overnight. He is awake and alert. He is tolerating his diet. No altered mentation. No chest pain. No palpitations. On 07/04/2019 the patient is out of the intensive care unit. He is feeling well. No fever. No significant tachycardia. Chest x-ray findings are stable. He is on prednisone burst taper. He is also on atropine and Levaquin. No nausea. No vomiting. No abdominal pain. Lower extremities are swollen. The cellulitis improved. No other complaints otherwise for now. Is tolerating his diet. He is using incentive spirometer. On today's evaluation of 07/05/2019, the patient's heart is under good control. He is doing well. No significant shortness of breath. He still on broad- spectrum antibiotics. No fever. No chills. No other new complaints otherwise for now. He is ambulating. He is currently on 3 L about 2 by nasal cannula. No fever. No chills. Vancomycin was discontinued. Objective - Vital Signs Vital signs: Vital Signs Temp 97.7 F 07/05/19 15:02 Pulse 81 07/05/19 15:04 Resp 17 07/05/19 15:04 BP 113/62 07/05/19 15:02 Pulse Ox 95 07/05/19 15:02 Intake & Output 07/04/19 07/05/19 07/05/19 18:59 06:59 18:59 Intake Total 1658 1100 Output Total 0 250 200 Balance 1658 -250 900 Weight 126.6 kg Intake: IV 60 .9 20 Invasive Line 5 40 Oral 1598 1100 Output: Urine 0 250 200 Other: Voiding Method Urinal Urinal Urinal # Voids 1 1 1 - Exam General Appearance no diaphoresis, able be full sentences and the patient is less short of breath currently off liters of oxygen by nasal cannula. Head exam was generally normal. There was no scleral icterus or corneal arcus. Mucous membranes were moist. Neck was supple and without jugular venous distension, thyromegaly, or carotid bruits. Carotids were easily palp Chest the patient has a bit of chest addition to diminished breath sound bilaterally along with prolongation of the expiratory phase of breathing and diffuse expiratory wheezes throughout the lung his bilaterally and this is significantly improved compared to yesterday. Also crackles in the left lung have improved on today's evaluation. Heart no right ventricular heave, no distant heart sounds, no s3 gallop, and the patient is irregular rate and rhythm. This is consistent with atrial fibrillation. GI bowel sounds: Bowel sounds present.Abdominal exam revealed normal bowel sounds. The abdomen was soft, non-tender, and without masses, organomegaly, or appreciable enlargement of the abdominal aorta. Extremities no cyanosis, no clubbing, edema, Neurologic no decreased mental status, no somnolence, no confusion Examination of the skin revealed no evidence of significant rashes, suspicious appearing nevi or other concerning lesions. There is increased erythema of the right lower extremity along with warmth and redness consistent with cellulitis on top of his chronic venous stasis involving the right lower extremity. His evaluation in the right lower extremity subluxes improving. The patient is less erythematous and warm compared to yesterday. - Labs CBC & Chem 7: 07/05/19 06:10 07/05/19 06:10 Labs: Abnormal Lab Results - Last 24 Hours (Table) 07/04/19 07/04/19 07/05/19 Range/Units 16:51 21:05 06:10 RBC 4.04 L (4.30-5.90) m/uL Plt Count 137 L (150-450) k/uL Lymphocytes # 0.5 L (1.0-4.8) k/uL Carbon Dioxide (22-30) mmol/L Glucose (74-99) mg/dL POC Glucose (mg/dL) 159 H 194 H (75-99) mg/dL 07/05/19 07/05/19 Range/Units 06:10 07:16 RBC (4.30-5.90) m/uL Plt Count (150-450) k/uL Lymphocytes # (1.0-4.8) k/uL Carbon Dioxide 34 H (22-30) mmol/L Glucose 174 H (74-99) mg/dL POC Glucose (mg/dL) 147 H (75-99) mg/dL Microbiology - Last 24 Hours (Table) 06/29/19 13:20 Blood Culture - Preliminary Blood No Growth after 120 hours Assessment and Plan Plan: Assessment 1 acute COPD exacerbation with secondary respiratory failure. The patient is developing a left lung consolidation/pneumonia. The patient continues to be on a combination of cefepime and Levaquin. Clinically improved. 2 chronic obstructive lung disease severe COPD with an FEV1 of 28% of predicted. 3 obstructive sleep apnea syndrome The patient has an apnea popping index of 17 currently is is not utilizing CPAP therapy has been off treatment. 4 right lower leg cellulitis, improved 5 chronic atrial fibrillation with rapid ventricular response. Briefly encountered hypotension with Cardizem infusion and the patient was given 2.5 L of bolus of IV fluid in the ED. Echocardiogram from his most recent admission showed a preserved LV function without any significant valvular abnormalities. Patient has a preserved LV function with an ejection fraction of 50-55%. RV is mildly dilated. Right ventricular systolic pressures around 34 consistent with mild pulmonary hypertension related to his chronic lung disease. 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 13 mild lactic acidosis, improving 14 steroid-induced hyperglycemia. 15 obesity Plan Continue Levaquin and cefepime. Continue prednisone burst taper. He is currently on room air oxygen with a pulse ox of 93%. Ambulate. Increased level of activity. Possible discharge within the next 48 hours. Continue same treatment. Possible discharge within the next 24-48 hours. Increased level of activity as tolerated. We'll follow..
[2019-07-05 17:00] LABS: Glucose,Whole Blood 94 mg/dL (75-99)
[2019-07-05] MEDS: ATORVASTATIN 80 MG TAB PO SCH (20:38)
[2019-07-05 21:02] LABS: Glucose,Whole Blood 146 mg/dL (75-99)
[2019-07-06] MEDS: PANTOPRAZOLE 40 MG TABLET PO SCH (06:58)
[2019-07-06] MEDS: glipiZIDE 10 MG TAB PO SCH (06:58)
[2019-07-06 07:14] LABS: Glucose,Whole Blood 104 mg/dL (75-99)
[2019-07-06] MEDS: INSULIN DETEMIR (LEVEMIR) 100 UNIT/ML SYR SQ SCH (07:14)
[2019-07-06] MEDS: INSULIN ASPART (NovoLOG) 100 UNIT/ML VIAL SQ SCH ×6 (07:14→21:11)
[2019-07-06] MEDS: BUDESONIDE 0.5 MG/2 ML NEBU INHALATION SCH ×2 (08:03→19:15)
[2019-07-06] MEDS: IPRATROPIUM-ALBUTEROL 3 ML NEB INHALATION SCH ×4 (08:03→19:15)
[2019-07-06] MEDS: CEFEPIME 2 GM in SODIUM CHLORIDE 0.9% 100 ML IVPB SCH ×2 (09:06→20:03)
[2019-07-06] MEDS: METOPROLOL TARTRATE 25 MG TAB PO SCH ×2 (09:07→20:02)
[2019-07-06] MEDS: predniSONE 20 MG TAB PO SCH (09:07)
[2019-07-06] MEDS: ASPIRIN 81 MG PO SCH (09:07)
[2019-07-06] MEDS: DILTIAZEM ORAL 30 MG TAB PO SCH ×3 (09:07→20:03)
[2019-07-06] MEDS: DIGOXIN 250 MCG TAB PO SCH (09:07)
[2019-07-06] MEDS: APIXABAN 5 MG TAB PO SCH ×2 (09:07→20:02)
[2019-07-06 09:55] VITALS: BMI 37.3
--- NOTE | 2019-07-06 11:07 | P.PN ---
Subjective Progress Note Date: 07/06/19 Principal diagnosis: Acute COPD exacerbation, and left lung pneumonia On 07/06/2019 patient seen in follow-up on selective care unit. He is awake and alert, in no acute distress, complaining of nasal congestion and nasal passages being dry. No acute distress, no worsening dyspnea, no complaints of chest pain, lung sounds reveal diminished breath sounds over left lower lobe, no significant rhonchi or wheezing. Remains on combination of cefepime and Levaquin, blood and sputum cultures showed no growth, urine culture showed enterococcus faecalis susceptible to Levaquin. Yesterday's chest x-ray showed left lower base airspace disease and a small pleural effusion. Clinically patient is stable, he has been tolerating activity, walking to the bathroom, in no acute distress. Objective - Vital Signs Vital signs: Vital Signs Temp 97.5 F L 07/06/19 08:00 Pulse 84 07/06/19 08:15 Resp 18 07/06/19 08:00 BP 121/69 07/06/19 08:00 Pulse Ox 95 07/06/19 08:00 Intake & Output 07/05/19 07/06/19 07/06/19 18:59 06:59 18:59 Intake Total 1300 Output Total 200 Balance 1100 Weight 125 kg 125 kg Intake: Oral 1300 Output: Urine 200 Other: Voiding Method Urinal Urinal Urinal # Voids 1 1 - Exam GENERAL EXAM: Alert, active, comfortable in no apparent distress. HEAD: Normocephalic/atraumatic. EYES: Normal reaction of pupils, equal size. Conjunctiva pink, sclera white. NOSE: Clear with pink turbinates. THROAT: No erythema or exudates. NECK: No masses, no JVD, no thyroid enlargement, no adenopathy. CHEST: No chest wall deformity. Symmetrical expansion. LUNGS: Diminished breath sounds over left lower lobe, no crackles, wheeze, rhonchi or dullness. CVS: Regular rate and rhythm, normal S1 and S2, no gallops, no murmurs, no rubs ABDOMEN: Soft, nontender. No hepatosplenomegaly, normal bowel sounds, no guarding or rigidity. EXTREMITIES: No clubbing, 1+ lower extremity edema, no cyanosis, 2+ pulses and upper and lower extremities. MUSCULOSKELETAL: Muscle strength and tone normal. SPINE: No scoliosis or deformity SKIN: No rashes CENTRAL NERVOUS SYSTEM: Alert and oriented -3. No focal deficits, tone is normal in all 4 extremities. PSYCHIATRIC: Alert and oriented -3. Appropriate affect. Intact judgment and insight. - Labs CBC & Chem 7: 07/05/19 06:10 07/05/19 06:10 Labs: Abnormal Lab Results - Last 24 Hours (Table) 07/05/19 07/06/19 Range/Units 21:01 07:13 POC Glucose (mg/dL) 146 H 104 H (75-99) mg/dL Microbiology - Last 24 Hours (Table) 06/29/19 13:20 Blood Culture - Final Blood No Growth after 144 hours Assessment and Plan Plan: Assessment: 1 acute COPD exacerbation with secondary respiratory failure. The patient is developing a left lung consolidation/pneumonia. The patient continues to be on a combination of cefepime and Levaquin. Clinically improved. 2 chronic obstructive lung disease severe COPD with an FEV1 of 28% of predicted. 3 obstructive sleep apnea syndrome The patient has an apnea popping index of 17 currently is is not utilizing CPAP therapy has been off treatment. 4 right lower leg cellulitis, improved 5 chronic atrial fibrillation with rapid ventricular response. Briefly e ncountered hypotension with Cardizem infusion and the patient was given 2.5 L of bolus of IV fluid in the ED. Echocardiogram from his most recent admission showed a preserved LV function without any significant valvular abnormalities. Patient has a preserved LV function with an ejection fraction of 50-55%. RV is mildly dilated. Right ventricular systolic pressures around 34 consistent with mild pulmonary hypertension related to his chronic lung disease. 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 13 mild lactic acidosis, improving 14 steroid-induced hyperglycemia. 15 obesity Plan: Continue current medical treatment, clinical patient remains stable, yesterday's chest x-ray showed improvement in the appearance of left lower lobe pneumonia, wean FiO2, increase activity as tolerated. Continue oral prednisone, and nebulized bronchodilators. From pulmonary perspective patient can be considered for discharge home today or tomorrow. I performed a history & physical examination of the patient and discussed their management with my nurse practitioner, Lety Chaparro. I reviewed the nurse practitioner's note and agree with the documented findings and plan of care. Lung sounds are positive for diffuse wheezes throughout the lung rasheed. The findings and the impression was discussed with the patient. I attest to the documentation by the nurse practitioner. Time with Patient: Less than 30
[2019-07-06 11:27] LABS: Glucose,Whole Blood 66 mg/dL (75-99)
--- NOTE | 2019-07-06 12:18 | P.PN ---
Subjective Progress Note Date: 07/06/19 This is a 69-year-old gentleman with history of COPD, obstructive sleep apnea, chronic persistent atrial fibrillation, hyperlipidemia, GERD, history of abdominal aortic aneurysm, coronary artery disease with prior stent placement who presented to the hospital with symptoms of worsening shortness of breath with associated confusion. He was also noted on admission to be in atrial fibrillation with a rapid ventricular response. Patient was initiated on Cardizem on presentation here, he became quite hypotensive and for this reason the Cardizem drip was discontinued briefly. He was given a fluid bolus following that. CT angiogram was also performed which did not reveal any evidence of a pulmonary embolism. This morning the patient continues to be in atrial fibrillation, his heart rate is in the 70s to 80s, anticoagulated with Eliquis. He is awake this morning, alert, in no acute distress. Objective - Vital Signs Vital signs: Vital Signs Temp 97.5 F L 07/06/19 08:00 Pulse 80 07/06/19 11:42 Resp 18 07/06/19 08:00 BP 121/69 07/06/19 08:00 Pulse Ox 95 07/06/19 08:00 Intake & Output 07/05/19 07/06/19 07/06/19 18:59 06:59 18:59 Intake Total 1300 Output Total 200 Balance 1100 Weight 125 kg 125 kg Intake: Oral 1300 Output: Urine 200 Other: Voiding Method Urinal Urinal Urinal # Voids 1 1 - Exam GENERAL EXAM: Alert, active, comfortable in no apparent distress. HEAD: Normocephalic/atraumatic. EYES: Normal reaction of pupils, equal size. Conjunctiva pink, sclera white. NOSE: Clear with pink turbinates. THROAT: No erythema or exudates. NECK: No masses, no JVD, no thyroid enlargement, no adenopathy. CHEST: No chest wall deformity. Symmetrical expansion. LUNGS: Diminished breath sounds over left lower lobe, no crackles, wheeze, rhonchi or dullness. CVS: Heart S1 and S2 irregularly irregular no gallops, no murmurs, no rubs ABDOMEN: Soft, nontender. No hepatosplenomegaly, normal bowel sounds, no guarding or rigidity. EXTREMITIES: No clubbing, 1+ lower extremity edema, no cyanosis, 2+ pulses and upper and lower extremities. MUSCULOSKELETAL: Muscle strength and tone normal. SPINE: No scoliosis or deformity SKIN: No rashes CENTRAL NERVOUS SYSTEM: Alert and oriented -3. No focal deficits, tone is normal in all 4 extremities. PSYCHIATRIC: Alert and oriented -3. Appropriate affect. Intact judgment and insight. - Labs CBC & Chem 7: 07/05/19 06:10 07/05/19 06:10 Labs: Abnormal Lab Results - Last 24 Hours (Table) 07/05/19 07/06/19 07/06/19 Range/Units 21:01 07:13 11:25 POC Glucose (mg/dL) 146 H 104 H 66 L (75-99) mg/dL Microbiology - Last 24 Hours (Table) 06/29/19 13:20 Blood Culture - Final Blood No Growth after 144 hours Assessment and Plan Plan: Assessment and plan: #1 acute COPD exacerbation with secondary respiratory failure. #2 chronic obstructive lung disease severe COPD #3 obstructive sleep apnea syndrome #4 right lower leg cellulitis, improved #5 chronic atrial fibrillation with rapid ventricular response. Patient has a preserved LV function with an ejection fraction of 50-55%. RV is mildly dilated. Right ventricular systolic pressures around 34 consistent with mild pulmonary hypertension related to his chronic lung disease. 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 #13 mild lactic acidosis, improving #14 steroid-induced hyperglycemia. #15 obesity Plan From cardiology's perspective, her rate is under adequate control. We would recommend to continue anticoagulation with Eliquis, continue Lanoxin, beta giovani. DNP note has been reviewed, I agree with a documented findings and plan of care. Patient was seen and examined.
--- NOTE | 2019-07-06 13:42 | P.PN ---
Subjective Progress Note Date: 07/06/19 69-year-old morbidly obese male one of Dr. Holland patient was known to have history of A. fib with RVR, coronary disease, post myocardial infarction, obstructive sleep apnea, vascular disorders, severe COPD with FEV1 of 20% only, recurrence alive slower 70, hyperglycemia and CAD post PCI and stent placement in the past who was the hospital last time few month ago for A. fib with RVR was not well-controlled for long time was supposed to have ablation and see Dr Sandoval at the time. He presented to [facility] department in the evening of 06/29/2019 with worsening dyspnea and shortness of breath mild confusion severe wheezes with cough and significant palpitation pulse rate running over 160 bpm time. According to him and his started as an increased cellulitis and edema of the lower extremity worse in the right leg than the left side with low-grade temperature the time his symptoms become much worse and developed to have significant spasm of the bronchial airway with worsening wheezes and significant dyspnea with hypoxia and severe palpitation and arrhythmia. [facility] blood pressure dropped down significantly was taking off Cardizem drip and started him 0.9 normal saline bolus his blood pressure had improved with his elevated white blood cell spasm of the airway and COPD exacerbation was placed on BiPAP consult cardiology and pulmonary patient pulse rate has improved with metoprolol and Cardizem oral he is still on anticoagulation at this time patient was started on vancomycin and Levaquin. 07/01: Patient had significant episode of A. fib with RVR pulse rate was running very high today had responded to medical management afterward. Patient is off BiPAP he still having bronchospasm also had fluid overload we will do 1 dose of Lasix 40 mg daily today. Patient remain on vancomycin and still on Levaquin for cellulitis and bilateral pneumonitis. Still on high dose of steroid with good response compared to yesterday. 07/02: Heart rate is running in the 90s to 110, pulse ox 93% on 3 L nasal cannula, blood pressure 110/76, afebrile. Patient remains in atrial fibrillation. Cardiology has increased Cardizem dose. Patient is currently on aspirin and eliquis. He did have a small amount of rectal bleeding possibly fro m hemorrhoids when he passes gas. Blood sugars have been elevated for which Dr. Artinian is indicated in Levemir 10 units and we will also add in scheduled NovoLog 5 with each meal. He is currently on antibiotics the form of cefepime, Levaquin and vancomycin. WBC 8.8, hemoglobin 14.8, platelet count is 136. Electrolytes and renal function within normal limits. Urine culture is positive for Enterococcus faecalis susceptible to vancomycin and Levaquin. Patient received 1 dose of IV Lasix yesterday and urinated 1 L following that. His urine output has been adequate. 07/03: Patient remains in the intensive care unit. He has been cleared by Dr. Berumen to transfer to the cardiac stepdown unit. Monitor remains atrial fibrillation. Heart rate has been in the 80s and 90s. Pulse ox 94% on 3 L nasal cannula, afebrile, blood pressure 116/62. Patient is reaching 1250 ml on incentive spirometry. Repeat lab work reveals white count 7.6, hemoglobin 13.9, platelet count 145. BUN 21 creatinine 0.73, blood sugars running in the 200s. Right lower extremity is less red and edematous with notable improvement of cellulitis. Discharge plan is to return home. We'll add in consult for PT to ensure patient is safe for discharge home. 07/04: Patient is sitting up in his recliner his feeling a bit better today he continues to be in atrial fibrillation, he used BiPAP last night, he hasn't had a bowel movement he denies any chest pain less shortness breath he continues to have some coughing minimal phlegm production, he has no pain in his right lower extremity cellulitis is much better. 07/05: Patient is sitting up in chair he is doing a lot better today he denies any chest pain less shortness breath he has less coughing, he has no fever or chills he used his BiPAP all night long, he does not need to have his leg wrapped as his cellulitis has resolved completed. 07/06: The patient states that he slept okay last night. He does have cough or sputum production after nebulizer treatments. He is currently off oxygen. He denies any dizziness or lightheadedness. He did have a small bowel movement last evening. Review of Systems CONSTITUTIONAL: Morbidly obese and no respiratory distress. EYES: No icterus sclerae, no conjunctivitis. EARS, NOSE, MOUTH, THROAT, and FACE: No sore throat, lymphadenopathy, carotid bruits or deformity. RESPIRATORY: Positive shortness of breath cough wheezes with significant bronchospasm. CARDIOVASCULAR: Positive shortness of breath palpitation PND orthopnea no angina. GASTROINTESTINAL: No Abd pain, Nausea or vomiting, no Diarrhea or constipation, No GI Bleed, no distention or masses. GENITOURINARY: Negative for Hematuria or UTI, no kidney stones. INTEGUMENT/BREAST: Cellulitis of the lower extremity improving. HEMATOLOGIC/LYMPHATIC: Negative for bleed or purpura. MUSCULOSKELTAL: Worsening pain and discomfort of the lower some especially in the right leg. NEURLOGICAL: No LOC, Sz or syncope, blurred vision dizziness or abnormality.. BEHAVIORAL/PSYCH: Negative. ENDOCRINE: Negative. Objective - Vital Signs Vital signs: Vital Signs Temp 97.5 F L 07/06/19 08:00 Pulse 84 07/06/19 08:15 Resp 18 07/06/19 08:00 BP 121/69 07/06/19 08:00 Pulse Ox 95 07/06/19 08:00 Intake & Output 07/05/19 07/06/19 07/06/19 18:59 06:59 18:59 Intake Total 1300 Output Total 200 Balance 1100 Weight 125 kg 125 kg Intake: Oral 1300 Output: Urine 200 Other: Voiding Method Urinal Urinal Urinal # Voids 1 1 - Exam General Appearance: Alert, cooperative, no distress, resting in ICU in a recliner with legs elevated Neck HEENT: Supple, no lymphadenopathy, no thyroid enlargement, no carotid bruits. Lungs: Decrease expansion with deep inspiration positive fine rhonchi, few expiratory wheezes, minimal intercostal retractions. Chest Wall: Decrease expansion with deep inspiration no tenderness Heart: Irregular rhythm and rate positive S3 positive ejection murmur with no gallop. Back: Symmetric, no curvature, ROM normal, no CVA tenderness. Abdomen: Soft, non-tender, bowel sounds active all four quadrants, no masses, no organomegaly. Extremities: 1+ edema, decreased erythema with chronic vascular cellulitis. Pulses: 2+ and symmetric. Skin: Right lower extremity is wrapped with an Greg wrap due to cellulitis of the right lower extremity. Neurologic: Alert oriented x3 cranial nerves II through XII intact, no motor deficit, no abnormal balance or gait. - Labs CBC & Chem 7: 07/05/19 06:10 07/05/19 06:10 Labs: Abnormal Lab Results - Last 24 Hours (Table) 07/05/19 07/06/19 Range/Units 21:01 07:13 POC Glucose (mg/dL) 146 H 104 H (75-99) mg/dL Microbiology - Last 24 Hours (Table) 06/29/19 13:20 Blood Culture - Final Blood No Growth after 144 hours Assessment and Plan Plan: 1 acute on chronic hypoxic respiratory failure secondary to Combination of A. fib with RVR, COPD exacerbation, pneumonia, possible gram-negative pneumonia and severe bronchitis with mild fluid overload, will continue O2 and updraft treatment consult pulmonary. 2 COPD exacerbation: Causing chronic on acute respiratory failure. Continue DuoNeb treatments, Pulmicort, cefepime, Levaquin, prednisone 40 mg daily., 4 A. fib with RVR, chronic atrial fibrillation. Continue eliquis 5 mg twice daily, Lanoxin 250 g daily, Cardizem 90 mg 3 times daily, Lopressor 25 mg twice daily. 5 acute cellulitis of the lower extremity, resolved. Discontinue dressing changes 6 severe bronchitis with early pneumonitis: Continue antibiotic. 7 obstructive sleep apnea: Patient 3 L nasal cannula. 8 hyperlipidemia: On atorvastatin 80 mg daily. 9 CAD post angioplasty and stent placement patient seen cardiology is still on secondary prevention. 10 type 2 diabetes uncontrolled with hyperglycemia secondary to steroids. Continue glipizide 10 mg daily, Levemir decreased to 5 units daily, discontinue NovoLog 5 units with meals as blood sugars are running low. 11 hypertension. Continue Lopressor and Cardizem. 12. Abdominal aortic aneurysm monitored by vascular surgery. 13. Acute enterococcus urinary tract infection, present on admission. Enterococcus faecalis sensitive to everything except tetracycline continue with cefepime for now. Discharge plan: Home on Saturday Impression and plan of care have been directed as dictated by the signing physician. Joy Baxter nurse practitioner acting as scribe for signing physician.
[2019-07-06] MEDS: LEVOFLOXACIN 750 MG TAB PO SCH (14:16)
[2019-07-06] MEDS: AMMONIUM LACTATE 12% LOTION 225 GM BTL TOPICAL SCH ×2 (14:17→20:04)
[2019-07-06 14:39] LABS: Glucose,Whole Blood 136 mg/dL (75-99)
[2019-07-06 17:42] LABS: Glucose,Whole Blood 127 mg/dL (75-99)
[2019-07-06] MEDS: ATORVASTATIN 80 MG TAB PO SCH (20:03)
[2019-07-06 20:50] LABS: Glucose,Whole Blood 244 mg/dL (75-99)
[2019-07-07 06:56] LABS: Glucose,Whole Blood 146 mg/dL (75-99)
[2019-07-07] MEDS: glipiZIDE 10 MG TAB PO SCH (06:56)
[2019-07-07] MEDS: INSULIN ASPART (NovoLOG) 100 UNIT/ML VIAL SQ SCH ×2 (06:57→12:16)
[2019-07-07] MEDS: PANTOPRAZOLE 40 MG TABLET PO SCH (06:57)
[2019-07-07] MEDS ORDERED: INSULIN DETEMIR (LEVEMIR) 100 UNIT/ML SYR SQ SCH (07:00)
[2019-07-07] MEDS: CEFEPIME 2 GM in SODIUM CHLORIDE 0.9% 100 ML IVPB SCH (07:37)
[2019-07-07] MEDS: METOPROLOL TARTRATE 25 MG TAB PO SCH (07:38)
[2019-07-07] MEDS: ASPIRIN 81 MG PO SCH (07:38)
[2019-07-07] MEDS: APIXABAN 5 MG TAB PO SCH (07:38)
[2019-07-07] MEDS: DILTIAZEM ORAL 30 MG TAB PO SCH (07:38)
[2019-07-07] MEDS: DIGOXIN 250 MCG TAB PO SCH (07:38)
[2019-07-07] MEDS: predniSONE 20 MG TAB PO SCH (07:38)
[2019-07-07] MEDS: AMMONIUM LACTATE 12% LOTION 225 GM BTL TOPICAL SCH (07:39)
[2019-07-07 07:46] VITALS: BP 115/66; RESP 16; TEMP 98.7
[2019-07-07] MEDS: IPRATROPIUM-ALBUTEROL 3 ML NEB INHALATION SCH ×2 (09:08→12:05)
[2019-07-07] MEDS: BUDESONIDE 0.5 MG/2 ML NEBU INHALATION SCH (09:08)
[2019-07-07 09:12] VITALS: PULSE 84
--- NOTE | 2019-07-07 11:14 | P.DS ---
Providers Date of admission: 06/29/19 17:03 Expected date of discharge: 07/07/19 Attending physician: Mariano Wayne Consults: 06/29/19 17:03 Consult Physician Stat Consulting Provider: Nicolasa Berumen Consult Reason/Comments: afib with rvr Do you want consulting provider notified?: Already Contacted Consult Physician Urgent Consulting Provider: [facility] Consult Reason/Comments: afib with rvr Do you want consulting provider notified?: Already Contacted Primary care physician: Laron Holland [facility] Course: 69-year-old morbidly obese male one of Dr. Holland patient was known to have history of A. fib with RVR, coronary disease, post myocardial infarction, obstructive sleep apnea, vascular disorders, severe COPD with FEV1 of 20% only, recurrence alive slower 70, hyperglycemia and CAD post PCI and stent placement in the past who was the hospital last time few month ago for A. fib with RVR was not well-controlled for long time was supposed to have ablation and see Dr Sandoval at the time. He presented to [facility] emergency in the evening of 06/29/2019 with worsening dyspnea and shortness of breath mild confusion severe wheezes with cough and significant palpitation pulse rate running over 160 bpm time. According to him and his started as an increased cellulitis and edema of the lower extremity worse in the right leg than the left side with low- grade temperature the time his symptoms become much worse and developed to have significant spasm of the bronchial airway with worsening wheezes and significant dyspnea with hypoxia and severe palpitation and arrhythmia. Patient was seen in [facility] started on Cardizem drip blood pressure dropped down significantly was taking off Cardizem drip and started him 0.9 normal saline bolus his blood pressure had improved with his elevated white blood cell spasm of the airway and COPD exacerbation was placed on BiPAP consult cardiology and pulmonary patient pulse rate has improved with metoprolol and Cardizem oral he is still on anticoagulation at this time patient was started on vancomycin and Levaquin. 07/01: Patient had significant episode of A. fib with RVR pulse rate was running very high today had responded to medical management afterward. Patient is off BiPAP he still having bronchospasm also had fluid overload we will do 1 dose of Lasix 40 mg daily today. Patient remain on vancomycin and still on Levaquin for cellulitis and bilateral pneumonitis. Still on high dose of steroid with good response compared to yesterday. 07/02: Heart rate is running in the 90s to 110, pulse ox 93% on 3 L nasal cannula, blood pressure 110/76, afebrile. Patient remains in atrial fibrillation. Cardiology has increased Cardizem dose. Patient is currently on aspirin and eliquis. He did have a small amount of rectal bleeding possibly from hemorrhoids when he passes gas. Blood sugars have been elevated for which Dr. Berumen is indicated in Levemir 10 units and we will also add in scheduled NovoLog 5 with each meal. He is currently on antibiotics the form of cefepime, Levaquin and vancomycin. WBC 8.8, hemoglobin 14.8, platelet count is 136. Electrolytes and renal function within normal limits. Urine culture is positive for Enterococcus faecalis susceptible to vancomycin and Levaquin. Patient received 1 dose of IV Lasix yesterday and urinated 1 L following that. His urine output has been adequate. 07/03: Patient remains in the intensive care unit. He has been cleared by Dr. Berumen to transfer to the cardiac stepdown unit. Monitor remains atrial fibrillation. Heart rate has been in the 80s and 90s. Pulse ox 94% on 3 L nasal cannula, afebrile, blood pressure 116/62. Patient is reaching 1250 ml on incentive spirometry. Repeat lab work reveals white count 7.6, hemoglobin 13.9, platelet count 145. BUN 21 creatinine 0.73, blood sugars running in the 200s. Right lower extremity is less red and edematous with notable improvement of ce llulitis. Discharge plan is to return home. We'll add in consult for PT to ensure patient is safe for discharge home. 07/04: Patient is sitting up in his recliner his feeling a bit better today he c ontinues to be in atrial fibrillation, he used BiPAP last night, he hasn't had a bowel movement he denies any chest pain less shortness breath he continues to have some coughing minimal phlegm production, he has no pain in his right lower extremity cellulitis is much better. 07/05: Patient is sitting up in chair he is doing a lot better today he denies any chest pain less shortness breath he has less coughing, he has no fever or chills he used his BiPAP all night long, he does not need to have his leg wrapped as his cellulitis has resolved completed. 07/06: The patient states that he slept okay last night. He does have cough or sputum production after nebulizer treatments. He is currently off oxygen. He denies any dizziness or lightheadedness. He did have a small bowel movement last evening. 07/07: Patient states that he is feeling a lot better today. Her breathing is improved. He states he has walked in the hallway without difficulty. He did have a small bowel movement. Pulse ox is 90% on room air, blood pressure 115/66, heart rate in the 80s, afebrile. Patient has been cleared for discharge from pulmonary medicine. Cardiology has recommended continuing eliquis Lanoxin and beta giovani. Patient is anxious to be discharged home today. Patient will be discharged in stable condition. Discharge diagnoses: 1 acute hypoxic respiratory failure secondary to Combination of A. fib with RVR, COPD exacerbation, pneumonia, possible gram-negative pneumonia and severe bronchitis with mild fluid overload 2 COPD exacerbation 4 A. fib with RVR, chronic atrial fibrillation 5 acute cellulitis of the lower extremity 6 severe bronchitis with early pneumonitis 7 obstructive sleep apnea 8 hyperlipidemia 9 CAD post angioplasty and stent placement 10 type 2 diabetes uncontrolled with hyperglycemia secondary to steroids 11 hypertension 12. Abdominal aortic aneurysm monitored by vascular surgery. 13. Acute enterococcus urinary tract infection, present on admission. Discharge plan: Home Impression and plan of care have been directed as dictated by the signing physician. Joy Baxter nurse practitioner acting as scribe for signing physici an. Patient Condition at Discharge: Good Plan - Discharge Summary Discharge Rx Participant: No New Discharge Prescriptions: New Digoxin [Lanoxin] 250 mcg PO DAILY #30 tab Metoprolol Tartrate [Lopressor] 25 mg PO BID #60 tab predniSONE 0 mg PO DIRECTED #30 tab Continue Atorvastatin [Lipitor] 80 mg PO HS #30 tab Albuterol Sulfate [Proair Hfa] 1 - 2 puff INHALATION RT-Q6H PRN PRN Reason: Shortness Of Breath Aspirin 81 mg PO DAILY chew Ipratropium-Albuterol Nebulize [Duoneb 0.5 mg-3 mg/3 ml Soln] 3 ml INHALATION RT-QID #120 ampul.neb glipiZIDE [Glucotrol] 10 mg PO DAILY Apixaban [Eliquis] 5 mg PO BID #60 tab Diltiazem HCl [Cardizem] 90 mg PO TID #90 tablet metFORMIN HCL 1,000 mg PO DAILY Budesonide [Pulmicort] 0.5 mg INHALATION RT-BID Discharge Medication List Atorvastatin [Lipitor] 80 mg PO HS #30 tab 08/18/16 [Rx] Albuterol Sulfate [Proair Hfa] 1 - 2 puff INHALATION RT-Q6H PRN 11/07/17 [History] Aspirin 81 mg PO DAILY chew 12/11/17 [Rx] Ipratropium-Albuterol Nebulize [Duoneb 0.5 mg-3 mg/3 ml Soln] 3 ml INHALATION RT-QID #120 ampul.neb 10/18/18 [Rx] glipiZIDE [Glucotrol] 10 mg PO DAILY 10/25/18 [History] Apixaban [Eliquis] 5 mg PO BID #60 tab 10/28/18 [Rx] Diltiazem HCl [Cardizem] 90 mg PO TID #90 tablet 10/28/18 [Rx] Budesonide [Pulmicort] 0.5 mg INHALATION RT-BID 06/29/19 [History] metFORMIN HCL 1,000 mg PO DAILY 06/29/19 [History] Digoxin [Lanoxin] 250 mcg PO DAILY #30 tab 07/07/19 [Rx] Metoprolol Tartrate [Lopressor] 25 mg PO BID #60 tab 07/07/19 [Rx] predniSONE 0 mg PO DIRECTED #30 tab 07/07/19 [Rx] Follow up Appointment(s)/Referral(s): Laron Holland DO [Primary Care Provider] - 1 Week Josias Celaya MD [STAFF PHYSICIAN] - 07/15/19 3:30 pm (Saturday) Nicolasa Berumen MD [STAFF PHYSICIAN] - 07/29/19 1:00 pm (Saturday -earliest available appointment) Patient Instructions/Handouts: A-fib (Atrial Fibrillation) (DC), COPD (Chronic Obstructive Pulmonary Disease) (DC) Discharge Disposition: HOME SELF-CARE
[2019-07-07 12:04] LABS: Glucose,Whole Blood 126 mg/dL (75-99)
--- NOTE | 2019-07-07 12:11 | P.PN ---
Subjective Progress Note Date: 07/07/19 This is a 69-year-old gentleman with history of COPD, obstructive sleep apnea, chronic persistent atrial fibrillation, hyperlipidemia, GERD, history of abdominal aortic aneurysm, coronary artery disease with prior stent placement who presented to the hospital with symptoms of worsening shortness of breath with associated confusion. He was also noted on admission to be in atrial fibrillation with a rapid ventricular response. Patient was initiated on Cardizem on presentation here, he became quite hypotensive and for this reason the Cardizem drip was discontinued briefly. He was given a fluid bolus following that. CT angiogram was also performed which did not reveal any evidence of a pulmonary embolism. This morning the patient continues to be in atrial fibrillation, his heart rate is in the 70s to 80s, anticoagulated with Eliquis. He is awake this morning, alert, in no acute distress. 07/07/2019 Patient seen and examined this morning, overall doing well, continues to be in atrial fibrillation, heart rate under adequate control. Anticipating discharge home today. Blood pressure 115/60 with a heart rate of 80, 90 per. Objective - Vital Signs Vital signs: Vital Signs Temp 98.7 F 07/07/19 07:44 Pulse 84 07/07/19 09:24 Resp 16 07/07/19 07:46 BP 115/66 07/07/19 07:44 Pulse Ox 90 L 07/07/19 07:44 Intake & Output 07/06/19 07/07/19 07/07/19 18:59 06:59 18:59 Intake Total 710 10 200 Output Total 1350 Balance 710 -1340 200 Weight 125 kg 124.6 kg Intake: IV 110 10 Cefepime 2 gm In Sodium 100 Chloride 0.9% 100 ml @ 200 mls/hr IVPB Q12HR [facility] Rx#:[id number] Invasive Line 6 10 10 Oral 600 200 Output: Urine 1350 Other: Voiding Method Urinal Urinal Urinal # Voids 500 1 - Exam GENERAL EXAM: Alert, active, comfortable in no apparent distress. HEAD: Normocephalic/atraumatic. EYES: Normal reaction of pupils, equal size. Conjunctiva pink, sclera white. NOSE: Clear with pink turbinates. THROAT: No erythema or exudates. NECK: No masses, no JVD, no thyroid enlargement, no adenopathy. CHEST: No chest wall deformity. Symmetrical expansion. LUNGS: Diminished breath sounds over left lower lobe, no crackles, wheeze, rhonchi or dullness. CVS: Heart S1 and S2 irregularly irregular no gallops, no murmurs, no rubs ABDOMEN: Soft, nontender. No hepatosplenomegaly, normal bowel sounds, no guarding or rigidity. EXTREMITIES: No clubbing, 1+ lower extremity edema, no cyanosis, 2+ pulses and upper and lower extremities. MUSCULOSKELETAL: Muscle strength and tone normal. SPINE: No scoliosis or deformity SKIN: No rashes CENTRAL NERVOUS SYSTEM: Alert and oriented -3. No focal deficits, tone is normal in all 4 extremities. PSYCHIATRIC: Alert and oriented -3. Appropriate affect. Intact judgment and insight. - Labs CBC & Chem 7: 07/05/19 06:10 07/05/19 06:10 Labs: Abnormal Lab Results - Last 24 Hours (Table) 07/06/19 07/06/19 07/06/19 Range/Units 14:37 16:53 20:50 POC Glucose (mg/dL) 136 H 127 H 244 H (75-99) mg/dL 07/07/19 07/07/19 Range/Units 06:54 11:51 POC Glucose (mg/dL) 146 H 126 H (75-99) mg/dL Assessment and Plan Plan: Assessment and plan: #1 acute COPD exacerbation with secondary respiratory failure. #2 chronic obstructive lung disease severe COPD #3 obstructive sleep apnea syndrome #4 right lower leg cellulitis, improved #5 chronic atrial fibrillation with rapid ventricular response. Patient has a preserved LV function with an ejection fraction of 50-55%. RV is mildly d ilated. Right ventricular systolic pressures around 34 consistent with mild pulmonary hypertension related to his chronic lung disease. 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 #13 mild lactic acidosis, improving #14 steroid-induced hyperglycemia. #15 obesity Plan From cardiology's perspective, her rate is under adequate control. We would recommend to continue anticoagulation with Eliquis, continue Lanoxin, beta giovani. DNP note has been reviewed, I agree with a documented findings and plan of care. Patient was seen and examined.
--- NOTE | 2019-07-07 13:32 | P.PN ---
Subjective Progress Note Date: 07/07/19 Principal diagnosis: Acute COPD exacerbation, and left lung pneumonia On 07/06/2019 patient seen in follow-up on selective care unit. He is awake and alert, in no acute distress, complaining of nasal congestion and nasal passages being dry. No acute distress, no worsening dyspnea, no complaints of chest pain, lung sounds reveal diminished breath sounds over left lower lobe, no significant rhonchi or wheezing. Remains on combination of cefepime and Levaquin, blood and sputum cultures showed no growth, urine culture showed enterococcus faecalis susceptible to Levaquin. Yesterday's chest x-ray showed left lower base airspace disease and a small pleural effusion. Clinically patient is stable, he has been tolerating activity, walking to the bathroom, in no acute distress. On 07/07/2019 patient seen in follow-up on selective care unit. His breathing continues to improve, he is on room air, his pulse ox is 90%, has had no fever or chills. Lung sounds reveal diminished breath sounds over left lower lung, no rhonchi, no wheezes, no acute issues overnight. Urine culture showed no growth, patient has been treated with antibiotics, urine culture was positive for Enterococcus faecalis sensitivity to Levaquin, patient has been on a combination of cefepime and Levaquin. improved, and patient is being discharged home today Objective - Vital Signs Vital signs: Vital Signs Temp 98.7 F 07/07/19 07:44 Pulse 84 07/07/19 09:24 Resp 16 07/07/19 07:46 BP 115/66 07/07/19 07:44 Pulse Ox 90 L 07/07/19 07:44 Intake & Output 07/06/19 07/07/19 07/07/19 18:59 06:59 18:59 Intake Total 710 10 200 Output Total 1350 Balance 710 -1340 200 Weight 125 kg 124.6 kg Intake: IV 110 10 Cefepime 2 gm In Sodium 100 Chloride 0.9% 100 ml @ 200 mls/hr IVPB Q12HR [facility] Rx#:[id number] Invasive Line 6 10 10 Oral 600 200 Output: Urine 1350 Other: Voiding Method Urinal Urinal Urinal # Voids 500 1 - Exam GENERAL EXAM: Alert, active, comfortable in no apparent distress. HEAD: Normocephalic/atraumatic. EYES: Normal reaction of pupils, equal size. Conjunctiva pink, sclera white. NOSE: Clear with pink turbinates. THROAT: No erythema or exudates. NECK: No masses, no JVD, no thyroid enlargement, no adenopathy. CHEST: No chest wall deformity. Symmetrical expansion. LUNGS: Diminished breath sounds over left lower lobe, no crackles, wheeze, rhonchi or dullness. CVS: Regular rate and rhythm, normal S1 and S2, no gallops, no murmurs, no rubs ABDOMEN: Soft, nontender. No hepatosplenomegaly, normal bowel sounds, no guarding or rigidity. EXTREMITIES: No clubbing, 1+ lower extremity edema, no cyanosis, 2+ pulses and upper and lower extremities. MUSCULOSKELETAL: Muscle strength and tone normal. SPINE: No scoliosis or deformity SKIN: No rashes CENTRAL NERVOUS SYSTEM: Alert and oriented -3. No focal deficits, tone is normal in all 4 extremities. PSYCHIATRIC: Alert and oriented -3. Appropriate affect. Intact judgment and insight. - Labs CBC & Chem 7: 07/05/19 06:10 07/05/19 06:10 Labs: Abnormal Lab Results - Last 24 Hours (Table) 07/06/19 07/06/19 07/06/19 Range/Units 14:37 16:53 20:50 POC Glucose (mg/dL) 136 H 127 H 244 H (75-99) mg/dL 07/07/19 07/07/19 Range/Units 06:54 11:51 POC Glucose (mg/dL) 146 H 126 H (75-99) mg/dL Assessment and Plan Plan: Assessment: 1 acute COPD exacerbation with secondary respiratory failure. The patient is developing a left lung consolidation/pneumonia. The patient continues to be on a combination of cefepime and Levaquin. Clinically improved. 2 chronic obstructive lung disease severe COPD with an FEV1 of 28% of predicted. 3 obstructive sleep apnea syndrome The patient has an apnea popping index of 17 currently is is not utilizing CPAP therapy has been off treatment. 4 right lower leg cellulitis, improved 5 chronic atrial fibrillation with rapid ventricular response. Briefly encountered hypotension with Cardizem infusion and the patient was given 2.5 L of bolus of IV fluid in the ED. Echocardiogram from his most recent admission showed a preserved LV function without any significant valvular abnormalities. Patient has a preserved LV function with an ejection fraction of 50-55%. RV is mildly dilated. Right ventricular systolic pressures around 34 consistent with mild pulmonary hypertension related to his chronic lung disease. 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 13 mild lactic acidosis, improving 14 steroid-induced hyperglycemia. 15 obesity Plan: Remains stable, improving, increase activity as tolerated, yesterday's chest x- ray shows improvement in the upper is of left lower lobe pneumonia. Ration is on room air, no acute events overnight, no fever or chills, stable for discharge from pulmonary perspective, with outpatient follow-up with Dr. Berumen in the office for follow-up chest x-ray I performed a history & physical examination of the patient and discussed their management with my nurse practitioner, Lety Chaparro. I reviewed the nurse practitioner's note and agree with the documented findings and plan of care. Lung sounds are positive for diffuse wheezes throughout the lung rasheed. The findings and the impression was discussed with the patient. I attest to the documentation by the nurse practitioner. Time with Patient: Less than 30
--- NOTE | 2019-07-08 10:45 | CDI ---
Documentation Clarification Form Date: 07/08/19 From: Vesna Bhatia Phone: If you have a question about this query, please contact Stephanie Ybarra, Thermometer Production Worker at [phone] between 8am and 5pm. Admit Date: 06/29/19 Discharge Date: 07/07/19 Patient Name: Laron Junior Visit Number: [id number] ATTENTION: The Clinical Documentation Specialists (CDI) and [facility] Coding Staff appreciate your assistance in clarifying documentation. Please respond to the clarification below the line at the bottom and electronically sign. The CDI & [facility] Coding staff will review the response and follow-up if needed. Please note: Queries are made part of the Legal Health Record. If you have any questions, please contact the author of this message via ITS. Dear Dr. Aneta Hernandez, The diagnosis sepsis was documented in the Dr Moss consult and 07/01 PN, but is not noted in subsequent documentation. History/Risk Factors: gram-neg pneumonia, acute on chronic hypoxic respiratory failure, persistent atrial fibrillation, COPD in exacerbation, bilateral leg cellulitis Clinical Indicators: WBC-11.7, Neutrophils-8.5, lactic acid-2.5, lactic acid sepsis Rflx-Y, Total bilirubin-2.2, ABG pH-7.46 Treatment: IV fluids, IV Levaquin, IV Zithromax, IV Vanco, IV Solu-Medrol, IV Maxipime Please clarify if the sepsis was: Present/active/treated this admission Sepsis ruled out Other, please specify Clinically unable to determine Sepsis due to possible gram negative pneumonia, actively treated during this hospital admission. GONSALOD
--- NOTE | 2019-07-08 10:55 | CDI ---
Documentation Clarification Form Date: 07/08/19 From: Vesna Bhatia Phone: If you have a question about this query, please contact Stephanie Ybarra, Development Associate at [phone] between 8am and 5pm. Admit Date: 06/29/19 Discharge Date: 07/07/19 Patient Name: Laron Junior Visit Number: [id number] ATTENTION: The Clinical Documentation Specialists (CDI) and [facility] Coding Staff appreciate your assistance in clarifying documentation. Please respond to the clarification below the line at the bottom and electronically sign. The CDI & [facility] Coding staff will review the response and follow-up if needed. Please note: Queries are made part of the Legal Health Record. If you have any questions, please contact the author of this message via ITS. Dear Dr. Nicolasa Beurmen, Atrial Flutter is documented in the ED Note, You documented atrial flutter in your consult and progress notes. History/Risk factors: persistent atrial fibrillation Clinical Indicators: Similiar presentation of SOB and A flutter and was given Cardizem drip for rate control. EKG/telemetry: A flutter vesus A fibrillation with a rate of 160 Treatment: Cardizem drip In your professional opinion, in order to capture the severity of condition; can you please clarify the type of Atrial Flutter if known? Typical/Type I Atypical/Type II Other, please specify Unable to determine Atypical/Type II MTDD
== END 2019-07-07 12:23 | disposition home or self-care (01) | DRG 871 ==
LOC: EC 11:53 → 2SICU 17:03 → 3SCARD 07-04 09:50
PROVIDERS: ADMIT Internal Medicine Geriatric Medicine; ATTEND Internal Medicine Geriatric Medicine
PROC: 5A09557 Assistance with Respiratory Ventilation, Greater than 96 Consecutive Hours, Continuous Positive Airway Pressure (ICD-10-PCS; principal; 2019-06-29)
DX: A41.50 Gram-negative sepsis, unspecified (principal); J15.6 Pneumonia due to other Gram-negative bacteria; J96.21 Acute and chronic respiratory failure with hypoxia; I48.19 Other persistent atrial fibrillation; J44.0 Chronic obstructive pulmonary disease with (acute) lower respiratory infection; J44.1 Chronic obstructive pulmonary disease with (acute) exacerbation; L03.116 Cellulitis of left lower limb; L03.115 Cellulitis of right lower limb; E87.2 Acidosis; N39.0 Urinary tract infection, site not specified; I48.4 Atypical atrial flutter; E11.51 Type 2 diabetes mellitus with diabetic peripheral angiopathy without gangrene; E66.01 Morbid (severe) obesity due to excess calories; E11.65 Type 2 diabetes mellitus with hyperglycemia; I27.20 Pulmonary hypertension, unspecified; E87.70 Fluid overload, unspecified; I80.3 Phlebitis and thrombophlebitis of lower extremities, unspecified; I87.8 Other specified disorders of veins; T38.0X5A Adverse effect of glucocorticoids and synthetic analogues, initial encounter; B95.2 Enterococcus as the cause of diseases classified elsewhere; K64.9 Unspecified hemorrhoids; I10 Essential (primary) hypertension; G47.33 Obstructive sleep apnea (adult) (pediatric); E78.2 Mixed hyperlipidemia; Z68.38 Body mass index [BMI] 38.0-38.9, adult; K21.9 Gastro-esophageal reflux disease without esophagitis; I71.4 Abdominal aortic aneurysm, without rupture; I25.10 Atherosclerotic heart disease of native coronary artery without angina pectoris; I25.2 Old myocardial infarction; M19.90 Unspecified osteoarthritis, unspecified site; Z79.01 Long term (current) use of anticoagulants; Z79.82 Long term (current) use of aspirin; Z79.84 Long term (current) use of oral hypoglycemic drugs; Z79.51 Long term (current) use of inhaled steroids; Z79.899 Other long term (current) drug therapy; Z71.3 Dietary counseling and surveillance; Z87.891 Personal history of nicotine dependence; Z99.89 Dependence on other enabling machines and devices; Z86.718 Personal history of other venous thrombosis and embolism; Z86.711 Personal history of pulmonary embolism; Z87.81 Personal history of (healed) traumatic fracture; Z86.14 Personal history of Methicillin resistant Staphylococcus aureus infection; Z90.49 Acquired absence of other specified parts of digestive tract; Z95.5 Presence of coronary angioplasty implant and graft; Z98.890 Other specified postprocedural states; Z86.72 Personal history of thrombophlebitis; Z87.39 Personal history of other diseases of the musculoskeletal system and connective tissue; Z88.0 Allergy status to penicillin; Z88.2 Allergy status to sulfonamides; Z82.49 Family history of ischemic heart disease and other diseases of the circulatory system; Z81.8 Family history of other mental and behavioral disorders; Z82.3 Family history of stroke
CPT/HCPCS: 36415; 36600; 70450; 71045; 71275; 80048; 80053; 80202; 81001; 82805; 83605; 83735; 84100; 84484; 85025; 85610; 85730; 86140; 87040; 87070; 87077; 87086; 87186; 87205; 87449; 87502; 93005; 94640; 94660; 94760; 96365; 96366; 96367; 96375; 96376; 99291

== ENCOUNTER 2019-07-08 17:28 | Emergency (ER) | payer MEDICARE ==
[2019-07-08 17:50] VITALS: PULSE 66
[2019-07-08 17:59] LABS: Glucose,Whole Blood 270 mg/dL (75-99)
[2019-07-08] MEDS ORDERED: SODIUM CHLORIDE 0.9% 500 ML 500 ML IV STA (18:17)
--- NOTE | 2019-07-08 18:37 | ED ---
General Adult HPI - General Chief complaint: Recheck/Abnormal Lab/Rx Stated complaint: Hyperglycemia Time Seen by Provider: 07/08/19 18:00 Source: patient, RN notes reviewed, old records reviewed Mode of arrival: wheelchair Limitations: no limitations - History of Present Illness Initial comments: 69-year-old male patient of multiple comorbidities including recent admission for A. fib RVR, COPD exacerbation, lower extremity cellulitis presents to ED complaining of hyperglycemia. Patient is a known type II diabetic and takes glipizide twice a day. Patient reports that upon being discharged home on steroids his blood sugars being elevated. Reports that this approximately 350 at home. Patient otherwise is asymptomatic. Patient reports that his breathing as well as cellulitis are greatly improved. Denies any pain. Denies other complaints. Systemic: Pt denies fatigue, fever/chills, rash. Pt denies weakness, night sweats, weight loss. Neuro: Pt denies headache, visual disturbances, syncope or pre-syncope. HEENT: Pt denies ocular discharge or irritation, otalgia, rhinorrhea, pharyngitis or notable lymphadenopathy. Cardiopulmonary: Pt denies chest pain, SOB, heart palpitations, dyspnea on exertion. Abdominal/GI: Pt denies abdominal pain, n/v/d. : Pt denies dysuria, burning w/ urination, frequency/urgency. Denies new onset urinary or bowel incontinence. MSK: Pt denies myalgia, loss of strength or function in extremities. Neuro: Pt denies new onset weakness, paresthesias. - Related Data Home Medications Medication Instructions Recorded Confirmed Albuterol Sulfate [Proair Hfa] 1 - 2 puff INHALATION RT-Q6H PRN 11/07/17 06/29/19 glipiZIDE [Glucotrol] 10 mg PO DAILY 10/25/18 06/29/19 Budesonide [Pulmicort] 0.5 mg INHALATION RT-BID 06/29/19 06/29/19 metFORMIN HCL 1,000 mg PO DAILY 06/29/19 06/29/19 Previous Rx's Medication Instructions Recorded Atorvastatin [Lipitor] 80 mg PO HS #30 tab 08/18/16 Aspirin 81 mg PO DAILY chew 12/11/17 Ipratropium-Albuterol Nebulize 3 ml INHALATION RT-QID #120 10/18/18 [Duoneb 0.5 mg-3 mg/3 ml Soln] ampul.neb Apixaban [Eliquis] 5 mg PO BID #60 tab 10/28/18 Diltiazem HCl [Cardizem] 90 mg PO TID #90 tablet 10/28/18 Digoxin [Lanoxin] 250 mcg PO DAILY #30 tab 07/07/19 Metoprolol Tartrate [Lopressor] 25 mg PO BID #60 tab 07/07/19 predniSONE 0 mg PO DIRECTED #30 tab 07/07/19 Furosemide [Lasix] 40 mg PO DAILY #30 tablet 07/08/19 Potassium Chloride ER [K-Dur 20] 20 meq PO DAILY #30 tab 07/08/19 Allergies Allergy/AdvReac Type Severity Reaction Status Date / Time Penicillins Allergy Anaphylaxis Verified 07/08/19 17:50 sulfamethoxazole Allergy Rash/Hives Verified 07/08/19 17:50 [From Bactrim] trimethoprim [From Bactrim] Allergy Rash/Hives Verified 07/08/19 17:50 Review of Systems ROS Statement: Those systems with pertinent positive or pertinent negative responses have been documented in the HPI. ROS Other: All systems not noted in ROS Statement are negative. Past Medical History Past Medical History: Atrial Fibrillation, Coronary Artery Disease (CAD), COPD, GERD/Reflux, Hyperlipidemia, Myocardial Infarction ([place]), Osteoarthritis (OA), Sleep Apnea/CPAP/BIPAP, Vascular Disorder Additional Past Medical History / Comment(s): COPD with a baseline FEV1 of 20% of predicted, obstructive sleep apnea moderate severe with an AHI of 17, chronic atrial fibrillation, coronary artery disease, obesity with a BMI of 38.7, hyperlipidemia, coronary artery disease, abdominal aortic aneurysm, history of right lower extremity phlebitis, history of right wrist fracture, previous history of myocardial infarction Last Myocardial Infarction Date:: 08/2016 History of Any Multi-Drug Resistant Organisms: MRSA Date of last positivie culture/infection: 2007 MDRO Source:: leg Past Surgical History: Appendectomy, Heart Catheterization, Heart Catheterization With Stent, Tonsillectomy Additional Past Surgical History / Comment(s): Colonoscopy, R leg vein stripping. Past Anesthesia/Blood Transfusion Reactions: No Reported Reaction Date of Last Stent Placement:: 09/02/16 Past Psychological History: No Psychological Hx Reported Smoking Status: Former smoker Past Alcohol Use History: Rare Past Drug Use History: None Reported - Past Family History Father Family Medical History: No Reported History Additional Family Medical History / Comment(s): in his 80's HAD HEART ISSUES Mother Family Medical History: Dementia Additional Family Medical History / Comment(s): Mother in her 80's Sister(s) Family Medical History: CVA/TIA Additional Family Medical History / Comment(s): Patient has 2 sisters. One has history of stroke in 1 has no major medical problems that he is aware of. Patient does not have any brothers. Daughter(s) Family Medical History: No Reported History Son(s) Family Medical History: No Reported History Additional Family Medical History / Comment(s): Patient has 1 son and 2 daughters with no major medical problems. General Exam - General Exam Comments Initial Comments: Constitutional: NAD, AOX3, Pt has pleasant affect. HEENT: NC/AT, trachea midline, neck supple, no lymphadenopathy. Posterior pharynx non erythematous, without exudates. External ears appear normal, without discharge. Mucous membranes moist. Eyes PERRLA, EOM intact. There is no scleral icterus. No pallor noted. Cardiopulmonary: RRR, no murmurs, rubs or gallops, no JVD noted. Lungs CTAB in anterior and posterior rasheed. No peripheral edema. Abdominal exam: Abdomen soft and non-distended. Abdomen non-tender to palpation in all 4 quadrants. Bowel sounds active in LLQ. No hepatosplenomegaly. No ecchymosis Neuro: CN II-XII grossly intact. No nuchal rigidity. No raccon eyes, no elliott sign, no hemotympanum. No cervical spinal tenderness. MSK: No posterior calf tenderness bilaterally, homans sign negative bilaterally. Posterior tibialis and radial pulse +2 bilaterally. Sensation intact in upper and lower extremities. Full active ROM in upper and lower extremities, 5/5 stregnth. Limitations: no limitations Course Vital Signs 07/08/19 07/08/19 17:47 19:58 Temperature 97.8 F Pulse Rate 66 66 Respiratory 18 22 Rate Blood Pressure 103/70 125/82 O2 Sat by Pulse 93 L 96 Oximetry Medical Decision Making - Medical Decision Making 69-year-old male patient with known diabetes presents ED chief with hyperglycemia. Patient vital signs are stable, at his baseline. Patient is a symptomatic. Physical exam didn't display acute pathology. Anion gap is 7. Blood glucose is 290 1 repeat 208. Urine did display +4 glucose and hematuria. Patient did not have any pain. Patient will be discharged, will monitor blood sugar at home. Will follow up with urology. Case discussed with Dr. Espinosa. - Lab Data Result diagrams: 07/08/19 18:40 Lab Results 07/08/19 07/08/19 07/08/19 Range/Units 17:56 18:40 18:40 Sodium 139 (137-145) mmol/L Potassium 4.5 (3.5-5.1) mmol/L Chloride 101 (98-107) mmol/L Carbon Dioxide 31 H (22-30) mmol/L Anion Gap 7 mmol/L BUN 25 H (9-20) mg/dL Creatinine 0.88 (0.66-1.25) mg/dL Est GFR (CKD-EPI)AfAm >90 (>60 ml/min/1.73 sqM) Est GFR (CKD-EPI)NonAf 89 (>60 ml/min/1.73 sqM) Glucose 291 H (74-99) mg/dL POC Glucose (mg/dL) 270 H (75-99) mg/dL POC Glu Analytical Lead ID Jus Her Calcium 9.3 (8.4-10.2) mg/dL Total Bilirubin 2.6 H (0.2-1.3) mg/dL AST 30 (17-59) U/L ALT 57 (21-72) U/L Alkaline Phosphatase 61 (38-126) U/L Total Protein 5.9 L (6.3-8.2) g/dL Albumin 3.7 (3.5-5.0) g/dL Urine Color Yellow Urine Appearance Clear (Clear) Urine pH 6.0 (5.0-8.0) Ur Specific Mccamey 1.024 (1.001-1.035) Urine Protein Negative (Negative) Urine Glucose (UA) 4+ H (Negative) Urine Ketones Negative (Negative) Urine Blood Moderate H (Negative) Urine Nitrite Negative (Negative) Urine Bilirubin Negative (Negative) Urine Urobilinogen <2.0 (<2.0) mg/dL Ur Leukocyte Esterase Negative (Negative) Urine RBC >182 H (0-5) /hpf Urine WBC 6 H (0-5) /hpf Urine Bacteria Rare H (None) /hpf Hyaline Casts 4 H (0-2) /lpf Urine Mucus Occasional H (None) /hpf 07/08/19 Range/Units 19:56 Sodium (137-145) mmol/L Potassium (3.5-5.1) mmol/L Chloride (98-107) mmol/L Carbon Dioxide (22-30) mmol/L Anion Gap mmol/L BUN (9-20) mg/dL Creatinine (0.66-1.25) mg/dL Est GFR (CKD-EPI)AfAm (>60 ml/min/1.73 sqM) Est GFR (CKD-EPI)NonAf (>60 ml/min/1.73 sqM) Glucose (74-99) mg/dL POC Glucose (mg/dL) 208 H (75-99) mg/dL POC Glu Analytical Lead ID Calcium (8.4-10.2) mg/dL Total Bilirubin (0.2-1.3) mg/dL AST (17-59) U/L ALT (21-72) U/L Alkaline Phosphatase (38-126) U/L Total Protein (6.3-8.2) g/dL Albumin (3.5-5.0) g/dL Urine Color Urine Appearance (Clear) Urine pH (5.0-8.0) Ur Specific Mccamey (1.001-1.035) Urine Protein (Negative) Urine Glucose (UA) (Negative) Urine Ketones (Negative) Urine Blood (Negative) Urine Nitrite (Negative) Urine Bilirubin (Negative) Urine Urobilinogen (<2.0) mg/dL Ur Leukocyte Esterase (Negative) Urine RBC (0-5) /hpf Urine WBC (0-5) /hpf Urine Bacteria (None) /hpf Hyaline Casts (0-2) /lpf Urine Mucus (None) /hpf Disposition Clinical Impression: Hematuria, Hyperglycemia Disposition: HOME SELF-CARE Condition: Stable Instructions (If sedation given, give patient instructions): Managing Diabetes During Sick Days (ED) Additional Instructions: Continue to monitor blood sugar at home. Follow up with primary care provider tomorrow. Return to ER if condition worsens in any way. Follow up with urology for blood in urine. Is patient prescribed a controlled substance at d/c from ED?: No Referrals: Laron Holland DO [Primary Care Provider] - 1-2 days Chandrakant Francis MD [STAFF PHYSICIAN] - 1-2 days
[2019-07-08] MEDS ORDERED: INSULIN ASPART (NovoLOG) 100 UNIT/ML VIAL SQ ONE (18:41)
[2019-07-08 18:56] LABS: ALT 57 U/L (21-72); AST 30 U/L (17-59); African American GFR (CKD) >90 (>60 ml/min/1.73 sqM); Albumin 3.7 g/dL (3.5-5.0); Alkaline Phosphatase 61 U/L (38-126); Anion Gap 7 mmol/L; Blood Urea Nitrogen 25 mg/dL (9-20); Calcium 9.3 mg/dL (8.4-10.2); Carbon Dioxide 31 mmol/L (22-30); Chloride 101 mmol/L (98-107); Glucose 291 mg/dL (74-99); Potassium 4.5 mmol/L (3.5-5.1); Sodium 139 mmol/L (137-145); Total Bilirubin 2.6 mg/dL (0.2-1.3); Total Protein 5.9 g/dL (6.3-8.2)
[2019-07-08 19:11] LABS: Appearance,Urine Clear (Clear); Bacteria,Urine Rare /hpf; Bilirubin,Urine Negative (Negative); Blood,Urine Moderate (Negative); Color,Urine Yellow; Glucose,Urine (UA) 4+ (Negative); Hyaline Casts,Urine 4 /lpf (0-2); Ketones,Urine Negative (Negative); Leukocyte Esterase,Urine Negative (Negative); Mucus,Urine Occasional /hpf; Nitrite,Urine Negative (Negative); Protein,Urine Negative (Negative); RBC,Urine >182 /hpf (0-5); Specific Gravity,Urine 1.024 (1.001-1.035); Urobilinogen,Urine <2.0 mg/dL (<2.0); WBC,Urine 6 /hpf (0-5)
[2019-07-08 19:58] LABS: Glucose,Whole Blood 208 mg/dL (75-99)
[2019-07-08 20:00] VITALS: BP 125/82; RESP 22
[2019-07-08 20:15] VITALS: TEMP 98.1
== END 2019-07-08 20:16 | disposition home or self-care (01) ==
LOC: EC 17:28
DX: E11.65 Type 2 diabetes mellitus with hyperglycemia (principal); R31.9 Hematuria, unspecified; J44.9 Chronic obstructive pulmonary disease, unspecified; I25.2 Old myocardial infarction; G47.33 Obstructive sleep apnea (adult) (pediatric); Z99.89 Dependence on other enabling machines and devices; E66.9 Obesity, unspecified; Z68.38 Body mass index [BMI] 38.0-38.9, adult; Z86.14 Personal history of Methicillin resistant Staphylococcus aureus infection; Z95.818 Presence of other cardiac implants and grafts; Z95.5 Presence of coronary angioplasty implant and graft; Z87.891 Personal history of nicotine dependence; Z79.51 Long term (current) use of inhaled steroids; Z79.84 Long term (current) use of oral hypoglycemic drugs; Z79.899 Other long term (current) drug therapy; Z88.0 Allergy status to penicillin; Z88.2 Allergy status to sulfonamides; Z53.29 Procedure and treatment not carried out because of patient's decision for other reasons
CPT/HCPCS: 36415; 80053; 81001; 99283

== ENCOUNTER 2019-11-09 21:28 | Inpatient (IN) | payer MEDICARE ==
--- NOTE | 2019-11-09 21:51 | ED ---
SOB HPI - General Chief Complaint: Shortness of Breath Stated Complaint: SOB Time Seen by Provider: 11/09/19 21:29 Source: patient, EMS, RN notes reviewed, old records reviewed Mode of arrival: EMS Limitations: no limitations - History of Present Illness Initial Comments: This is a 61-year-old male DF for evaluation patient has a for evaluation regards to severe shortness of breath patient is a mildly poor strain secondary to respiratory distress patient has significant atrial fibrillation with RVR, arrival oxygen was low on an outpatient basis but improved with breathing treatments and supplemental O2 here in the ER. Patient himself is no signif icant complaints denying chest pain, again has no complaints recent inpatient hospitalization for unknown time he says it maybe about a week for pneumonia discharge today spiked fever tonight and felt short of breath. Patient's family called EMS and EMS brought patient also provided history MD Complaint: shortness of breath -: days(s) Radiation: other (no pain) Severity: moderate Severity scale (1-10): 6 Quality: dull Consistency: constant Improves With: oxygen, bronchodilators Known History Of: COPD, recurrent pneumonia Context: recent URI, other (recent inpatient hospitalization) Associated Symptoms: fever, cough Treatments Prior to Arrival: none - Related Data Home Medications Medication Instructions Recorded Confirmed Albuterol Sulfate [Proair Hfa] 2 puff INHALATION RT-Q6H PRN 11/07/17 11/09/19 Budesonide [Pulmicort] 0.5 mg INHALATION RT-BID 06/29/19 11/09/19 Albuterol Nebulized [Ventolin 2.5 mg INHALATION Q4H 11/09/19 11/09/19 Nebulized] Breathe Sinus And Lungs Health 1 cap PO DAILY 11/09/19 11/09/19 Ipratropium Nebulized [Atrovent 0.5 mg INHALATION RT-Q6H PRN 11/09/19 11/09/19 Nebulized 0.2 MG/ML] Previous Rx's Medication Instructions Recorded Atorvastatin [Lipitor] 80 mg PO HS #30 tab 08/18/16 Aspirin 81 mg PO DAILY chew 12/11/17 Apixaban [Eliquis] 5 mg PO BID #60 tab 10/28/18 Diltiazem HCl [Cardizem] 90 mg PO TID #90 tablet 10/28/18 Digoxin [Lanoxin] 250 mcg PO DAILY #30 tab 07/07/19 Metoprolol Tartrate [Lopressor] 25 mg PO BID #60 tab 07/07/19 Allergies Allergy/AdvReac Type Severity Reaction Status Date / Time Penicillins Allergy Anaphylaxis Verified 11/09/19 22:55 sulfamethoxazole Allergy Rash/Hives Verified 11/09/19 22:55 [From Bactrim] trimethoprim [From Bactrim] Allergy Rash/Hives Verified 11/09/19 22:55 Review of Systems ROS Statement: Those systems with pertinent positive or pertinent negative responses have been documented in the HPI. ROS Other: All systems not noted in ROS Statement are negative. Past Medical History Past Medical History: Atrial Fibrillation, Coronary Artery Disease (CAD), COPD, GERD/Reflux, Hyperlipidemia, Myocardial Infarction ([place]), Osteoarthritis (OA), Sleep Apnea/CPAP/BIPAP, Vascular Disorder Additional Past Medical History / Comment(s): COPD with a baseline FEV1 of 20% of predicted, obstructive sleep apnea moderate severe with an AHI of 17, chronic atrial fibrillation, coronary artery disease, obesity with a BMI of 38.7, hyperlipidemia, coronary artery disease, abdominal aortic aneurysm, history of right lower extremity phlebitis, history of right wrist fracture, previous history of myocardial infarction Last Myocardial Infarction Date:: 08/2016 History of Any Multi-Drug Resistant Organisms: MRSA Date of last positivie culture/infection: 2007 MDRO Source:: leg Past Surgical History: Appendectomy, Heart Catheterization, Heart Catheterization With Stent, Tonsillectomy Additional Past Surgical History / Comment(s): Colonoscopy, R leg vein stripping. Past Anesthesia/Blood Transfusion Reactions: No Reported Reaction Date of Last Stent Placement:: 09/02/16 Past Psychological History: No Psychological Hx Reported Smoking Status: Former smoker Past Alcohol Use History: Rare Past Drug Use History: None Reported - Past Family History Father Family Medical History: No Reported History Additional Family Medical History / Comment(s): in his 80's HAD HEART ISSUES Mother Family Medical History: Dementia Additional Family Medical History / Comment(s): Mother in her 80's Sister(s) Family Medical History: CVA/TIA Additional Family Medical History / Comment(s): Patient has 2 sisters. One has history of stroke in 1 has no major medical problems that he is aware of. Patient does not have any brothers. Daughter(s) Family Medical History: No Reported History Son(s) Family Medical History: No Reported History Additional Family Medical History / Comment(s): Patient has 1 son and 2 daughters with no major medical problems. General Exam Limitations: no limitations General appearance: alert, in no apparent distress Head exam: Present: atraumatic, normocephalic, normal inspection Eye exam: Present: normal appearance, PERRL, EOMI. Absent: scleral icterus, conjunctival injection, periorbital swelling ENT exam: Present: normal exam, mucous membranes moist Neck exam: Present: normal inspection. Absent: tenderness, meningismus, lymphadenopathy Respiratory exam: Present: normal lung sounds bilaterally, accessory muscle use, decreased breath sounds, prolonged expiratory. Absent: respiratory distress, wheezes, rales, rhonchi, stridor Cardiovascular Exam: Present: tachycardia, irregular rhythm, normal heart sounds. Absent: systolic murmur, diastolic murmur, rubs, gallop, clicks GI/Abdominal exam: Present: soft, normal bowel sounds. Absent: distended, tenderness, guarding, rebound, rigid Extremities exam: Present: normal inspection, full ROM, normal capillary refill. Absent: tenderness, pedal edema, joint swelling, calf tenderness Back exam: Present: normal inspection Neurological exam: Present: alert, oriented X3, CN II-XII intact Psychiatric exam: Present: normal affect, normal mood Skin exam: Present: warm, dry, intact, normal color. Absent: rash Course Vital Signs 11/09/19 11/09/19 11/09/19 21:29 21:38 22:02 Temperature 102.3 F H Pulse Rate 101 H 177 H Respiratory 28 H 28 H 26 H Rate Blood Pressure 125/70 O2 Sat by Pulse 99 99 Oximetry 11/09/19 11/09/19 22:41 22:46 Temperature 101.5 F H Pulse Rate 116 H 113 H Respiratory 24 Rate Blood Pressure 181/84 O2 Sat by Pulse 94 L 96 Oximetry - Reevaluation(s) Reevaluation #1: 11/09/19 23:35 Medical record as well as prior inpatient hospitalization at [facility] Reevaluation #2: 11/09/19 23:35 Patient has improvement in heart rate and fever with symptomatically treatment Reevaluation #3: 11/09/19 23:35 found of fever patient will be put on covert pathway rule out: COVID - Consultations Consultation #1: Spoke with Dr. Lozada who agrees for admission Medical Decision Making - Medical Decision Making 69 male DF for evaluation patient was unsafe for evaluation regarding shortness of breath fever A. fib with RVR patient is no known cause for fever but didn't have recent hospitalization for pneumonia patient has normal x-ray we'll admit for rule out: Treatment of A. fib with RVR - Lab Data Result diagrams: 11/09/19 21:30 11/09/19 21:30 Lab Results 11/09/19 11/09/19 11/09/19 Range/Units 21:30 21:30 21:30 WBC 9.2 (3.8-10.6) k/uL RBC 4.97 (4.30-5.90) m/uL Hgb 16.2 (13.0-17.5) gm/dL Hct 48.6 (39.0-53.0) % MCV 97.9 (80.0-100.0) fL MCH 32.6 (25.0-35.0) pg MCHC 33.3 (31.0-37.0) g/dL RDW 13.2 (11.5-15.5) % Plt Count 156 (150-450) k/uL Neutrophils % 79 % Lymphocytes % 11 % Monocytes % 6 % Eosinophils % 1 % Basophils % 1 % Neutrophils # 7.3 (1.3-7.7) k/uL Lymphocytes # 1.0 (1.0-4.8) k/uL Monocytes # 0.5 (0-1.0) k/uL Eosinophils # 0.1 (0-0.7) k/uL Basophils # 0.1 (0-0.2) k/uL PT 10.2 (9.0-12.0) sec INR 1.0 (<1.2) APTT 22.9 (22.0-30.0) sec Sodium 139 (137-145) mmol/L Potassium 4.3 (3.5-5.1) mmol/L Chloride 103 (98-107) mmol/L Carbon Dioxide 25 (22-30) mmol/L Anion Gap 11 mmol/L BUN 16 (9-20) mg/dL Creatinine 0.73 (0.66-1.25) mg/dL Est GFR (CKD-EPI)AfAm >90 (>60 ml/min/1.73 sqM) Est GFR (CKD-EPI)NonAf >90 (>60 ml/min/1.73 sqM) Glucose 76 (74-99) mg/dL Plasma Lactic Acid Ravinder (0.7-2.0) mmol/L Calcium 9.3 (8.4-10.2) mg/dL Magnesium 1.8 (1.6-2.3) mg/dL Total Bilirubin 1.2 (0.2-1.3) mg/dL AST 30 (17-59) U/L ALT 18 (4-49) U/L Alkaline Phosphatase 54 (38-126) U/L Troponin I (0.000-0.034) ng/mL NT-Pro-B Natriuret Pep pg/mL Total Protein 6.5 (6.3-8.2) g/dL Albumin 4.2 (3.5-5.0) g/dL Influenza Type A RNA (Not Detectd) Influenza Type B (PCR) (Not Detectd) RSV (PCR) (Negative) 11/09/19 11/09/19 11/09/19 Range/Units 21:30 21:30 21:30 WBC (3.8-10.6) k/uL RBC (4.30-5.90) m/uL Hgb (13.0-17.5) gm/dL Hct (39.0-53.0) % MCV (80.0-100.0) fL MCH (25.0-35.0) pg MCHC (31.0-37.0) g/dL RDW (11.5-15.5) % Plt Count (150-450) k/uL Neutrophils % % Lymphocytes % % Monocytes % % Eosinophils % % Basophils % % Neutrophils # (1.3-7.7) k/uL Lymphocytes # (1.0-4.8) k/uL Monocytes # (0-1.0) k/uL Eosinophils # (0-0.7) k/uL Basophils # (0-0.2) k/uL PT (9.0-12.0) sec INR (<1.2) APTT (22.0-30.0) sec Sodium (137-145) mmol/L Potassium (3.5-5.1) mmol/L Chloride (98-107) mmol/L Carbon Dioxide (22-30) mmol/L Anion Gap mmol/L BUN (9-20) mg/dL Creatinine (0.66-1.25) mg/dL Est GFR (CKD-EPI)AfAm (>60 ml/min/1.73 sqM) Est GFR (CKD-EPI)NonAf (>60 ml/min/1.73 sqM) Glucose (74-99) mg/dL Plasma Lactic Acid Ravinder 1.9 (0.7-2.0) mmol/L Calcium (8.4-10.2) mg/dL Magnesium (1.6-2.3) mg/dL Total Bilirubin (0.2-1.3) mg/dL AST (17-59) U/L ALT (4-49) U/L Alkaline Phosphatase (38-126) U/L Troponin I <0.012 (0.000-0.034) ng/mL NT-Pro-B Natriuret Pep 1680 pg/mL Total Protein (6.3-8.2) g/dL Albumin (3.5-5.0) g/dL Influenza Type A RNA (Not Detectd) Influenza Type B (PCR) (Not Detectd) RSV (PCR) (Negative) 11/09/19 Range/Units 21:30 WBC (3.8-10.6) k/uL RBC (4.30-5.90) m/uL Hgb (13.0-17.5) gm/dL Hct (39.0-53.0) % MCV (80.0-100.0) fL MCH (25.0-35.0) pg MCHC (31.0-37.0) g/dL RDW (11.5-15.5) % Plt Count (150-450) k/uL Neutrophils % % Lymphocytes % % Monocytes % % Eosinophils % % Basophils % % Neutrophils # (1.3-7.7) k/uL Lymphocytes # (1.0-4.8) k/uL Monocytes # (0-1.0) k/uL Eosinophils # (0-0.7) k/uL Basophils # (0-0.2) k/uL PT (9.0-12.0) sec INR (<1.2) APTT (22.0-30.0) sec Sodium (137-145) mmol/L Potassium (3.5-5.1) mmol/L Chloride (98-107) mmol/L Carbon Dioxide (22-30) mmol/L Anion Gap mmol/L BUN (9-20) mg/dL Creatinine (0.66-1.25) mg/dL Est GFR (CKD-EPI)AfAm (>60 ml/min/1.73 sqM) Est GFR (CKD-EPI)NonAf (>60 ml/min/1.73 sqM) Glucose (74-99) mg/dL Plasma Lactic Acid Ravinder (0.7-2.0) mmol/L Calcium (8.4-10.2) mg/dL Magnesium (1.6-2.3) mg/dL Total Bilirubin (0.2-1.3) mg/dL AST (17-59) U/L ALT (4-49) U/L Alkaline Phosphatase (38-126) U/L Troponin I (0.000-0.034) ng/mL NT-Pro-B Natriuret Pep pg/mL Total Protein (6.3-8.2) g/dL Albumin (3.5-5.0) g/dL Influenza Type A RNA Not Detected (Not Detectd) Influenza Type B (PCR) Not Detected (Not Detectd) RSV (PCR) Negative (Negative) - EKG Data -: EKG Interpreted by Me (EKG shows A. fib RVR 142 QRS 80, QTC 403) - Radiology Data Radiology results: report reviewed (Chest x-ray is negative for acute disease), image reviewed Disposition Clinical Impression: Atrial fibrillation with RVR, Acute exacerbation of chronic obstructive airways disease, Atrial flutter with rapid ventricular response, Fever Narrative: roCOVID Disposition: ADMITTED IP TO THIS HOSP Condition: Serious Is patient prescribed a controlled substance at d/c from ED?: No Referrals: Laron Holland DO [Primary Care Provider] - 1-2 days
[2019-11-09 21:56] LABS: Basophils # (A) 0.1 k/uL (0-0.2); Basophils % (A) 1 %; Eosinophils # (A) 0.1 k/uL (0-0.7); Eosinophils % (A) 1 %; HCT 48.6 % (39.0-53.0); HGB 16.2 gm/dL (13.0-17.5); Lymphocytes % (A) 11 %; MCH 32.6 pg (25.0-35.0); MCHC 33.3 g/dL (31.0-37.0); MCV 97.9 fL (80.0-100.0); Mean Platelet Volume 7.9; Monocytes # (A) 0.5 k/uL (0-1.0); Monocytes % (A) 6 %; Neutrophils # (A) 7.3 k/uL (1.3-7.7); Neutrophils % (A) 79 %; Platelet Count 156 k/uL (150-450); RBC 4.97 m/uL (4.30-5.90); RDW 13.2 % (11.5-15.5); WBC 9.2 k/uL (3.8-10.6)
[2019-11-09] MEDS ORDERED: DILTIAZEM DRIP BOLUS FROM BAG 1 MG SOLN IV ONE (21:56)
[2019-11-09] MEDS ORDERED: DILTIAZEM 125 MG in SODIUM CHLORIDE 0.9% 100 ML IV SCH (22:00)
[2019-11-09 22:05] LABS: ALT 18 U/L (4-49); AST 30 U/L (17-59); African American GFR (CKD) >90 (>60 ml/min/1.73 sqM); Albumin 4.2 g/dL (3.5-5.0); Alkaline Phosphatase 54 U/L (38-126); Anion Gap 11 mmol/L; Blood Urea Nitrogen 16 mg/dL (9-20); Calcium 9.3 mg/dL (8.4-10.2); Carbon Dioxide 25 mmol/L (22-30); Chloride 103 mmol/L (98-107); Glucose 76 mg/dL (74-99); Magnesium 1.8 mg/dL (1.6-2.3); Non-African American GFR(CKD) >90 (>60 ml/min/1.73 sqM); Potassium 4.3 mmol/L (3.5-5.1); Sodium 139 mmol/L (137-145); Total Bilirubin 1.2 mg/dL (0.2-1.3); Total Protein 6.5 g/dL (6.3-8.2)
[2019-11-09 22:06] LABS: Partial Thromboplastin Time 22.9 sec (22.0-30.0); Prothrombin Time 10.2 sec (9.0-12.0)
[2019-11-09] MEDS: LORazepam 2 MG/ML INJ IV STA ×2 (22:15→22:24)
--- NOTE | 2019-11-09 22:24 | XR ---
EXAMINATION TYPE: XR chest 1V portable DATE OF EXAM: 11/09/2019 COMPARISON: 07/05/2019 HISTORY: Short of breath TECHNIQUE: FINDINGS: There is some patchy atelectasis at the lung bases. There is no gross heart failure. There is no pleural effusion. There are chest leads. IMPRESSION: Patchy atelectasis at the lung bases is new and increased compared to old exam. No heart failure seen.
[2019-11-09] MEDS ORDERED: LORazepam 2 MG/ML INJ IM STA (22:34)
[2019-11-09] MEDS ORDERED: ACETAMINOPHEN TAB 500 MG TAB PO STA (22:34)
[2019-11-09] MEDS ORDERED: IBUPROFEN 800 MG TAB PO STA (22:34)
[2019-11-09] MEDS ORDERED: NITROGLYCERIN SL TABS 0.4 MG TAB SUBLINGUAL PRN (23:28)
[2019-11-09] MEDS ORDERED: PNEUMONIA PROTOCOL UTILIZED 1 EACH MISC PO PRN (23:28)
[2019-11-09] MEDS ORDERED: ASPIRIN 81 MG PO STA (23:28)
[2019-11-10 02:00] LABS: Glucose,Whole Blood 82 mg/dL (75-99)
[2019-11-10] MEDS ORDERED: ALBUTEROL NEBULIZED 2.5 MG/3 ML INHALATION SCH (02:30)
[2019-11-10 03:46] LABS: ALT 16 U/L (4-49); AST 26 U/L (17-59); African American GFR (CKD) >90 (>60 ml/min/1.73 sqM); Albumin 3.2 g/dL (3.5-5.0); Alkaline Phosphatase 44 U/L (38-126); Anion Gap 9 mmol/L; Blood Urea Nitrogen 13 mg/dL (9-20); Calcium 8.5 mg/dL (8.4-10.2); Carbon Dioxide 25 mmol/L (22-30); Chloride 108 mmol/L (98-107); Glucose 89 mg/dL (74-99); Non-African American GFR(CKD) >90 (>60 ml/min/1.73 sqM); Potassium 3.9 mmol/L (3.5-5.1); Sodium 142 mmol/L (137-145); Total Protein 5.4 g/dL (6.3-8.2)
[2019-11-10 03:47] LABS: Cholesterol 110 mg/dL (<200); HDL Cholesterol 57 mg/dL (40-60); LDL Cholesterol,Calculated 36 mg/dL (0-99); Triglycerides 84 mg/dL (<150)
[2019-11-10 04:04] LABS: Basophils % (A) 0 %; Eosinophils % (A) 1 %; HCT 43.4 % (39.0-53.0); HGB 14.2 gm/dL (13.0-17.5); Lymphocytes % (A) 14 %; MCH 32.5 pg (25.0-35.0); MCHC 32.8 g/dL (31.0-37.0); MCV 99.1 fL (80.0-100.0); Mean Platelet Volume 7.9; Monocytes # (A) 0.5 k/uL (0-1.0); Monocytes % (A) 7 %; Neutrophils # (A) 5.1 k/uL (1.3-7.7); Neutrophils % (A) 75 %; Platelet Count 125 k/uL (150-450); RBC 4.38 m/uL (4.30-5.90); RDW 13.3 % (11.5-15.5); WBC 6.8 k/uL (3.8-10.6)
--- NOTE | 2019-11-10 08:14 | XR ---
EXAMINATION TYPE: XR chest 1V DATE OF EXAM: 11/10/2019 COMPARISON: 11/09/2019 HISTORY: Shortness of breath TECHNIQUE: Single frontal view of the chest is obtained. FINDINGS: Left basilar airspace disease is worsened from the prior now obscuring the left hemidiaphr agmatic costophrenic angle. Remainder the lungs are well aerated. Cardiomediastinal silhouette is sta ble from the prior. No acute osseous pathology. No new pneumothorax. IMPRESSION: Worsening left basilar airspace disease. Primary diagnostic consideration is for unifoca l pneumonia.
[2019-11-10] MEDS ORDERED: ASPIRIN 325 MG TAB PO SCH (09:00)
[2019-11-10] MEDS: BUDESONIDE 0.5 MG/2 ML NEBU INHALATION SCH ×2 (09:13→21:03)
[2019-11-10] MEDS: ALBUTEROL NEBULIZED 2.5 MG/3 ML INHALATION PRN ×2 (09:14→21:03)
[2019-11-10] MEDS: METOPROLOL TARTRATE 25 MG TAB PO SCH ×2 (09:21→20:43)
[2019-11-10] MEDS: DIGOXIN 250 MCG TAB PO SCH (09:21)
[2019-11-10] MEDS ORDERED: VANCOMYCIN IV PER PHARMACY 1 EACH MISC MISCELLANE PRN (10:05)
[2019-11-10] MEDS: DILTIAZEM ORAL 30 MG TAB PO SCH ×3 (10:36→20:43)
[2019-11-10] MEDS: LEVOFLOXACIN 500MG-D5W PMX 500 MG in DEXTROSE/WATER 1 100ML.BAG IVPB SCH (10:36)
[2019-11-10] MEDS: ASPIRIN 81 MG PO SCH (10:38)
[2019-11-10] MEDS: SODIUM CHLORIDE 0.9% 1,000 ML IV SCH ×2 (11:37→20:45)
[2019-11-10] MEDS: VANCOMYCIN 1,750 MG in SODIUM CHLORIDE 0.9% 500 ML 500 ML IVPB SCH ×2 (11:37→20:42)
[2019-11-10] MEDS: APIXABAN 5 MG TAB PO SCH ×3 (12:07→20:43)
--- NOTE | 2019-11-10 12:56 | P.CNPUL ---
History of Present Illness Consult date: 11/10/19 Requesting physician: Candy Lozada Reason for consult: pneumonia Chief complaint: Shortness of breath and fever. History of present illness: This is a 69-year-old white male, known history of multiple medical problems including chronic atrial fibrillation, coronary artery disease, chronic obst ructive pulmonary disease, obstructive sleep apnea syndrome, obesity, BMI of 38.7, previous [place], patient was recently admitted to [facility], and his admission was mostly related to cardiac arrhythmias in the form of atrial fibrillation with RVR. He was discharged yesterday from [facility], and he was supposed to follow-up eventually with another group of cardiology out of town. During his admission to the hospital, patient had symptoms of cough, and low-grade fever, but since discharge, his symptoms have worsened. Patient was brought in with worsening symptoms of shortness of breath, fever, and abnormal chest x-ray showing extensive left lower lobe pneumonia. Patient was admitted, placed empirically on antibiotics, and I was asked to see him on consultation. No recent travel history, no recent exposure to any patient with coronal virus infection. However considering his symptoms and his presentation, coronary virus testing was requested. Patient was placed in droplet isolation. Chest x-ray clearly showing left basilar airspace disease. CBC showed normal platelets on admission, normal WBC count, and 11% lymphocytes. Screening for influenza A was negative screening for influenza B was also negative. Review of Systems Constitutional: Fever chills no weight loss. HEENT: Denies any sore throat or earache. Pulmonary: As noted in HPI. Cardiac: History of atrial fibrillation/paroxysmal atrial fibrillation and presently asymptomatic. GI: No nausea no vomiting no abdominal pain melena or hematemesis. Genitourinary denies any dysuria frequency urgency hematuria. Musculoskeletal denies any arthralgia or myalgia. Skin: Denies any rashes. No pruritus Hematologic: Denies any clotting bleeding or bruising Endocrine: Denies any heat or cold intolerance. Psychiatric: Denies any symptoms of depression or anxiety. Past Medical History Past Medical History: Atrial Fibrillation, Coronary Artery Disease (CAD), COPD, GERD/Reflux, Hyperlipidemia, Myocardial Infarction ([place]), Osteoarthritis (OA), Sleep Apnea/CPAP/BIPAP, Vascular Disorder Additional Past Medical History / Comment(s): COPD with a baseline FEV1 of 20% of predicted, obstructive sleep apnea moderate severe with an AHI of 17, chronic atrial fibrillation, coronary artery disease, obesity with a BMI of 38.7, hyperlipidemia, coronary artery disease, abdominal aortic aneurysm, history of right lower extremity phlebitis, history of right wrist fracture, previous history of myocardial infarction Last Myocardial Infarction Date:: 08/2016 History of Any Multi-Drug Resistant Organisms: MRSA Date of last positivie culture/infection: 2007 MDRO Source:: leg Past Surgical History: Appendectomy, Heart Catheterization, Heart Catheterization With Stent, Tonsillectomy Additional Past Surgical History / Comment(s): Colonoscopy, R leg vein stripping. Past Anesthesia/Blood Transfusion Reactions: No Reported Reaction Date of Last Stent Placement:: 09/02/16 Past Psychological History: No Psychological Hx Reported Additional Psychological History / Comment(s): Pt resides with spouse. He is independent. He has home oxygen and a nebulizer and a glucometer. Smoking Status: Former smoker Past Alcohol Use History: Rare Additional Past Alcohol Use History / Comment(s): Patient was a smoker of 2-3 packs per day for a number of years quit 20 years ago. He denies any alcohol use. He lives at home with his . He also chewed during that time frame. Past Drug Use History: None Reported - Past Family History Father Family Medical History: No Reported History Additional Family Medical History / Comment(s): in his 80's HAD HEART ISSUES Mother Family Medical History: Dementia Additional Family Medical History / Comment(s): Mother in her 80's Sister(s) Family Medical History: CVA/TIA Additional Family Medical History / Comment(s): Patient has 2 sisters. One has history of stroke in 1 has no major medical problems that he is aware of. Patient does not have any brothers. Daughter(s) Family Medical History: No Reported History Son(s) Family Medical History: No Reported History Additional Family Medical History / Comment(s): Patient has 1 son and 2 daught ers with no major medical problems. Medications and Allergies Home Medications Medication Instructions Recorded Confirmed Type Atorvastatin [Lipitor] 80 mg PO HS #30 tab 08/18/16 11/09/19 Rx Albuterol Sulfate [Proair Hfa] 2 puff INHALATION RT-Q6H PRN 11/07/17 11/09/19 History Aspirin 81 mg PO DAILY chew 12/11/17 11/09/19 Rx Apixaban [Eliquis] 5 mg PO BID #60 tab 10/28/18 11/09/19 Rx Diltiazem HCl [Cardizem] 90 mg PO TID #90 tablet 10/28/18 11/09/19 Rx Budesonide [Pulmicort] 0.5 mg INHALATION RT-BID 06/29/19 11/09/19 History Digoxin [Lanoxin] 250 mcg PO DAILY #30 tab 07/07/19 11/09/19 Rx Metoprolol Tartrate [Lopressor] 25 mg PO BID #60 tab 07/07/19 11/09/19 Rx Albuterol Nebulized [Ventolin 2.5 mg INHALATION RT-QID 11/09/19 11/10/19 History Nebulized] Breathe Sinus And Lungs Health 1 cap PO DAILY 11/09/19 11/09/19 History Ipratropium Nebulized [Atrovent 0.5 mg INHALATION RT-Q6H PRN 11/09/19 11/09/19 History Nebulized 0.2 MG/ML] Allergies Allergy/AdvReac Type Severity Reaction Status Date / Time Penicillins Allergy Anaphylaxis Verified 11/09/19 22:55 sulfamethoxazole Allergy Rash/Hives Verified 11/09/19 22:55 [From Bactrim] trimethoprim [From Bactrim] Allergy Rash/Hives Verified 11/09/19 22:55 Physical Exam Vitals: Vital Signs Temp Pulse Resp BP Pulse Ox 11/10/19 12:00 99.0 F 78 17 144/83 97 11/10/19 11:00 70 23 141/87 96 11/10/19 10:00 98 17 163/117 98 11/10/19 09:15 84 11/10/19 09:00 90 18 145/94 97 11/10/19 08:45 89 11/10/19 08:00 98.1 F 85 154/91 97 11/10/19 07:00 86 22 117/88 95 11/10/19 06:00 101 H 21 126/84 96 11/10/19 05:00 100 19 128/75 94 L 11/10/19 04:38 18 11/10/19 04:00 98 F 102 H 19 137/76 94 L 11/10/19 03:00 99 18 124/76 94 L 11/10/19 02:38 20 11/10/19 02:09 20 11/10/19 02:00 98.7 F 112 H 19 124/76 97 11/10/19 00:07 108 H 18 133/67 97 11/09/19 22:46 101.5 F H 113 H 96 11/09/19 22:41 116 H 24 181/84 94 L 11/09/19 22:02 177 H 26 H 99 11/09/19 21:38 28 H 11/09/19 21:29 102.3 F H 101 H 28 H 125/70 99 Intake and Output 11/09/19 11/10/19 11/10/19 22:59 06:59 14:59 Intake Total 30 140 Output Total 250 100 Balance -220 40 Intake: IV 30 140 Levofloxacin 500Mg-D5w 100 Pmx 500 mg In Dextrose/ Water 1 100ml.bag @ 100 mls/hr IVPB Q24HR [facility] Rx# :[id number] Sodium Chloride 0.9% 30 40 Output: Urine 250 100 Other: # Voids 1 Weight 104.326 kg 116.5 kg Physical Exam: Revealed 69-year-old white male in no distress. On few liters nasal cannula. Head: Atraumatic normocephalic. Short obese neck is noted. HEENT:[Neck is supple.] [No neck masses.] [No thyromegaly.] [No JVD.] Chest: [Symmetrical chest expansion, crackles at the bases especially at the left base, no rhonchi and no wheezes..] Cardiac Exam: [Normal S1 and S2, no S3 gallop, 2/6 systolic murmur thought the precordium. Abdomen: [Obese, Soft, nontender, no megaly, no rebound, no guarding, normal bowel sounds.] Extremities: [No clubbing, no edema, no cyanosis.] Neurological Exam: [No focal neurologic deficit.] Alert and oriented 3. Psychiatric: Normal mood, affect and normal mental status examination. Skin: No rashes. Results - Laboratory Findings CBC and BMP: 11/10/19 03:21 11/10/19 03:21 PT/INR, D-dimer PT 10.2 sec (9.0-12.0) 11/09/19 21:30 INR 1.0 (<1.2) 11/09/19 21:30 Abnormal lab findings: Abnormal Labs 11/10/19 11/10/19 03:21 03:21 Plt Count 125 L Chloride 108 H Creatinine 0.65 L Total Protein 5.4 L Albumin 3.2 L - Diagnostic Findings Chest x-ray: image reviewed (As noted in HPI.) Assessment and Plan Assessment: Impression: Acute left lower lobe pneumonia, likely healthcare associated pneumonia. Paroxysmal atrial fibrillation. History of underlying coronary artery disease. History of COPD with mild exacerbation. Degenerative joint disease. Obstructive sleep apnea syndrome, uses BiPAP at home. Recommendation: Continue antibiotics as ordered, however considering the patient had previous MRSA infection, will definitely empirically use vancomycin, and will add Levaquin considering his ALLERGY to penicillin and sulfa. Continue bronchodilators. Resume cardiac meds. Keep the patient in isolation until covid 19 results are available. Continue to use precautions/droplet isolation, Continue GI and DVT prophylaxis. Continue Eliquis. ID consultation. We'll continue to follow. Time with Patient: Greater than 30
--- NOTE | 2019-11-10 13:03 | P.HPIM ---
History of Present Illness H&P Date: 11/10/19 Chief Complaint: Fever, cough This is a 69-year-old male patient of Dr. Holland and Dr. Berumen with a previous medical history significant for paroxysmal atrial fibrillation, hypertension and hypertensive cardiovascular disease, hyperlipidemia, obesity with obstructive sleep apnea, CAD with ST elevation [place] post-PCI of the RCA back in August 2016, advanced COPD with FEV1 of 20% of predicted, chronic hypoxic respiratory failure, diabetes mellitus type 2, remote history of tobacco use. Patient has had previous admissions for acute COPD exacerbation as well as atrial flutter or atrial fibrillation with RVR. Patient most recently was hospitalized at [facility] at which time he was treated for atrial fibrillation with RVR, and pneumonia with lactic acidosis. Patient was treated with Rocephin and azithromycin. Patient was discharged home on . Patient was instructed to hold eliquis as he was scheduled for heart catheterization on Saturday. 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 He then developed fever of 104 at home as well as shortness of breath and productive cough. Patient came into [facility] for evaluation. Temperature 102.3, heart rate 101 and jumped up to 177, blood pressure 125/70, pulse ox 99%.. He was found to be in A. fib with RVR, influenza and RSV negative. patient was tested for COVID19 which is pending. CBC, CMP unremarkable. Lactic acid 1.9, troponin 0.012, proBNP 1680. Chest x-ray reveals patchy atelectasis at the lung bases is new and increased compared to old exam. No heart failure seen. Repeat Chest x-ray reveals worsening left basilar airspace disease. Primary diagnostic consideration is for unifocal pneumonia. Patient has been admitted to the intensive care unit and consult in place with pulmonary medicine and cardiology consult will be added. 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 Cardizem drip will be discontinued and home oral medications resumed. Review of Systems Constitutional: Reports chills, Reports fatigue, Reports fever, Reports lethargy, Reports malaise, Reports poor appetite, Reports weakness Eyes: denies blurred vision, denies pain Ears, nose, mouth and throat: Denies dysphagia, Denies nasal congestion, Denies nasal discharge, Denies sore throat, Denies vertigo Cardiovascular: Reports dyspnea on exertion, Reports shortness of breath, Denies chest pain, Denies leg edema Respiratory: Reports cough with sputum, Reports dyspnea, Reports respiratory infections, Denies cough, Denies excessive sputum, Denies hemoptysis Gastrointestinal: Denies abdominal pain, Denies diarrhea, Denies nausea, Denies vomiting Genitourinary: Denies dysuria, Denies urinary frequency, Denies urinary retention Musculoskeletal: Reports muscle weakness, Denies frequent falls, Denies gait dysfunction, Denies myalgias Integumentary: Denies pruritus, Denies rash, Denies wounds Neurological: Denies change in mentation, Denies change in speech, Denies numbness, Denies weakness Psychiatric: Denies anxiety, Denies depression Endocrine: Denies fatigue, Denies weight change Past Medical History Past Medical History: Atrial Fibrillation, Coronary Artery Disease (CAD), COPD, GERD/Reflux, Hyperlipidemia, Myocardial Infarction ([place]), Osteoarthritis (OA), Sleep Apnea/CPAP/BIPAP, Vascular Disorder Additional Past Medical History / Comment(s): COPD with a baseline FEV1 of 20% of predicted, obstructive sleep apnea moderate severe with an AHI of 17, chronic atrial fibrillation, coronary artery disease, obesity with a BMI of 38.7, hyperlipidemia, coronary artery disease, abdominal aortic aneurysm, history of right lower extremity phlebitis, history of right wrist fracture, previous history of myocardial infarction Last Myocardial Infarction Date:: 08/2016 History of Any Multi-Drug Resistant Organisms: MRSA Date of last positivie culture/infection: 2007 MDRO Source:: leg Past Surgical History: Appendectomy, Heart Catheterization, Heart Catheterization With Stent, Tonsillectomy Additional Past Surgical History / Comment(s): Colonoscopy, R leg vein stripping. Past Anesthesia/Blood Transfusion Reactions: No Reported Reaction Date of Last Stent Placement:: 09/02/16 Past Psychological History: No Psychological Hx Reported Additional Psychological History / Comment(s): Pt resides with spouse. He is independent. He has home oxygen and a nebulizer and a glucometer. Smoking Status: Former smoker Past Alcohol Use History: Rare Additional Past Alcohol Use History / Comment(s): Patient was a smoker of 2-3 packs per day for a number of years quit 20 years ago. He denies any alcohol use. He lives at home with his . He also chewed during that time frame. Past Drug Use History: None Reported - Past Family History Father Family Medical History: No Reported History Additional Family Medical History / Comment(s): in his 80's HAD HEART ISSUES Mother Family Medical History: Dementia Additional Family Medical History / Comment(s): Mother in her 80's Sister(s) Family Medical History: CVA/TIA Additional Family Medical History / Comment(s): Patient has 2 sisters. One has history of stroke in 1 has no major medical problems that he is aware of. Patient does not have any brothers. Daughter(s) Family Medical History: No Reported History Son(s) Family Medical History: No Reported History Additional Family Medical History / Comment(s): Patient has 1 son and 2 daughters with no major medical problems. Medications and Allergies Home Medications Medication Instructions Recorded Confirmed Type Atorvastatin [Lipitor] 80 mg PO HS #30 tab 08/18/16 11/09/19 Rx Albuterol Sulfate [Proair Hfa] 2 puff INHALATION RT-Q6H PRN 11/07/17 11/09/19 History Aspirin 81 mg PO DAILY chew 12/11/17 11/09/19 Rx Apixaban [Eliquis] 5 mg PO BID #60 tab 10/28/18 11/09/19 Rx Diltiazem HCl [Cardizem] 90 mg PO TID #90 tablet 10/28/18 11/09/19 Rx Budesonide [Pulmicort] 0.5 mg INHALATION RT-BID 06/29/19 11/09/19 History Digoxin [Lanoxin] 250 mcg PO DAILY #30 tab 07/07/19 11/09/19 Rx Metoprolol Tartrate [Lopressor] 25 mg PO BID #60 tab 07/07/19 11/09/19 Rx Albuterol Nebulized [Ventolin 2.5 mg INHALATION RT-QID 11/09/19 11/10/19 History Nebulized] Breathe Sinus And Lungs Health 1 cap PO DAILY 11/09/19 11/09/19 History Ipratropium Nebulized [Atrovent 0.5 mg INHALATION RT-Q6H PRN 11/09/19 11/09/19 History Nebulized 0.2 MG/ML] Allergies Allergy/AdvReac Type Severity Reaction Status Date / Time Penicillins Allergy Anaphylaxis Verified 11/09/19 22:55 sulfamethoxazole Allergy Rash/Hives Verified 11/09/19 22:55 [From Bactrim] trimethoprim [From Bactrim] Allergy Rash/Hives Verified 11/09/19 22:55 Physical Exam Vitals: Vital Signs Temp Pulse Resp BP Pulse Ox 11/10/19 09:15 84 11/10/19 09:00 90 18 145/94 97 11/10/19 08:45 89 11/10/19 08:00 85 154/91 97 11/10/19 07:00 86 22 117/88 95 11/10/19 06:00 101 H 21 126/84 96 11/10/19 05:00 100 19 128/75 94 L 11/10/19 04:38 18 11/10/19 04:00 98 F 102 H 19 137/76 94 L 11/10/19 03:00 99 18 124/76 94 L 11/10/19 02:38 20 11/10/19 02:09 20 11/10/19 02:00 98.7 F 112 H 19 124/76 97 11/10/19 00:07 108 H 18 133/67 97 11/09/19 22:46 101.5 F H 113 H 96 11/09/19 22:41 116 H 24 181/84 94 L 11/09/19 22:02 177 H 26 H 99 11/09/19 21:38 28 H 11/09/19 21:29 102.3 F H 101 H 28 H 125/70 99 Intake and Output 11/09/19 11/10/19 11/10/19 22:59 06:59 14:59 Intake Total 30 30 Output Total 250 0 Balance -220 30 Intake: IV 30 30 Sodium Chloride 0.9% 30 30 Output: Urine 250 0 Other: # Voids 1 Weight 104.326 kg 116.5 kg Gen: This is a 69-year-old obese man. He is resting in the ICU bed and appears to be comfortable and in no acute distress. HEENT: Head is atraumatic, normocephalic. Pupils equal, round. Sclerae is anicteric. NECK: Supple. No JVD. No lymphadenopathy. No thyromegaly. LUNGS: Clear to auscultation. No wheezes or rhonchi. No intercostal retractions. HEART: Irregularly irregular. Systolic ejection murmur. ABDOMEN: Soft. Bowel sounds are present. No masses. No tenderness. EXTREMITIES: No pedal edema. No calf tenderness. NEUROLOGICAL: Patient is awake, alert and oriented x3. Cranial nerves 2 through 12 are grossly intact. Results CBC & Chem 7: 11/11/19 04:48 11/11/19 04:48 Labs: Abnormal Lab Results - Last 24 Hours (Table) 11/10/19 11/10/19 Range/Units 03:21 03:21 Plt Count 125 L (150-450) k/uL Chloride 108 H (98-107) mmol/L Creatinine 0.65 L (0.66-1.25) mg/dL Total Protein 5.4 L (6.3-8.2) g/dL Albumin 3.2 L (3.5-5.0) g/dL Thrombosis Risk Factor Assmnt - DVT/VTE Prophylaxis DVT/VTE Prophylaxis: Pharmacologic Prophylaxis ordered - Choose All That Apply Each Factor Represents 1 point: Abnormal pulmonary function (COPD), Obesity (BMI >25) Each Risk Factor Represents 2 Points: Age 61-74 years Thrombosis Risk Factor Assessment Total Risk Factor Score: 4 Thrombosis Risk Factor Assessment Level: Moderate Risk Assessment and Plan Plan: 1. Acute febrile illness most likely secondary to left-sided pneumonia, gram- negative pneumonia. Patient is in isolation and tested for COVID-19 and results are pending. Atrovent nebulizer treatment every 6 hours as needed, Levaquin 500 mg daily, vancomycin. Consult with Dr. Hayde nicholson. 2. A. fib with RVR. Heart rate is currently controlled. Cardizem drip will be discontinued. Patient continued on eliquis 5 mg twice daily, digoxin 250 g daily, Cardizem oral 90 mg 3 times daily, Lopressor 25 mg twice daily. Cardiology consult. 3. Advanced COPD. Continue Atrovent, Pulmicort twice daily, consult with pulmonary medicine 4. Obstructive sleep apnea. 5. Known coronary artery disease post angioplasty and stent placement. Patient was scheduled to undergo catheter[facility] today at [facility].. 6. Hypertension hypertensive cardiovascular disease. 7. Abdominal aortic aneurysm monitored by vascular surgery. 8. GI prophylaxis. Protonix. 9. DVT prophylaxis. Eliquis. 10. Chronic hypoxic respiratory failure on home O2. Patient will be admitted to the hospital for a minimum of 3 night stay. Discharge plan: To be determined Impression and plan of care have been directed as dictated by the signing physician. Joy Baxter nurse practitioner acting as scribe for signing physician.
[2019-11-10 13:52] LABS: Glucose,Whole Blood 86 mg/dL (75-99)
--- NOTE | 2019-11-10 15:37 | CONS ---
CONSULTATION Mr. Junior is a 69-year-old gentleman who is seen for cardiac evaluation, patient's electronic medical records were reviewed. This patient was admitted to the [facility] Emergency room yesterday with severe shortness of breath. The patient has been treated for pneumonia. He also was found to be in atrial fibrillation with a rapid ventricular response. This patient was in the [facility] for 4 days and was treated for pneumonia and atrial fibrillation and was discharged home. This patient has a history of recurrent pneumonias, severe COPD and history of known coronary artery disease. The patient is rather unreliable historian but according to the old chart, patient had a stent done about 2 years ago. Patient says he is being seen by a blackener at [facility] [place] and he was supposed to have an angioplasty or another stent placed at the [facility]. At present, patient denies any anginal pain. He has a history of atrial fibrillation and coronary artery disease. PAST MEDICAL HISTORY: Includes severe COPD with FEV1 of 20% of the predicted, obesity, hyperlipidemia, coronary artery disease, appendicectomy. PHYSICAL EXAMINATION: At present reveals a 69-year-old obesely-built gentleman who was afebrile with a temperature of 102 yesterday, his temperature is normal. Heart rate is now 70-80 per minute, blood pressure is 130/80 mmHg. HEENT: Examination is negative. Neck is supple. There is no increase in jugular venous pressure. Both the carotid pulses are felt. There is no bruit. Chest is symmetrical. Heart, the PMI is not felt. First and second heart sounds are normal. Lungs reveal a few basal rales. Abdomen is soft. Extremities, peripheral pulsations are 1+. Monitor pattern shows atrial fibrillation with a controlled rate. Patient's digoxin blood level was 1.3 in August. FINAL IMPRESSION: This patient is admitted with recurrent left lower lobe pneumonia, has been treated with antibiotics. Patient was in atrial fibrillation with a rapid ventricular response yesterday. At present, the rate is controlled. We will continue patient on oral Cardizem, beta giovani and restart the patient on Eliquis as well as aspirin. We will try to get the records from [facility]. MMODL / IJN: [id number] /
[2019-11-10] MEDS: ATORVASTATIN 80 MG TAB PO SCH (20:43)
--- NOTE | 2019-11-10 23:34 | P.CONS ---
History of Present Illness - Reason for Consult Consult date: 11/10/19 Pneumonia , ?COVID19 Requesting physician: Candy Lozada - Chief Complaint fever and shortness of breath x 1 day - History of Present Illness Patient is a 69-year male who was recently admitted at [facility] [place] cardiac [place]ia [place] the patient was just discharged day before presenting back to this facility apparently patient was treated pr edominantly for A. fib with RVR and during that admission patient did have some cough and low-grade fever however the patient symptom continued to get worse after he was discharged from the hospital complaining of increasing shortness of breath on minimal exertion and even at rest patient also have a cough which is moderate intensity with occasional sputum patient denies having any URI symptom no chest pain no abdominal pain and no diarrhea with the symptom the patient presented to hospital on arrival to the ER repeat did have a fever of 102 degrees for right patient has been tachycardic no white count has been normal at 9.2 kidney function has been normal patient did have influenza and RSV PCR that has been negative patient initial x-ray patchy atelectasis in the left lung base that was new with a repeat x-ray worsening left basilar airspace disease patient has been treated with the Levaquin and vancomycin to cover for possible nosocomial pneumonia infectious disease has been consulted for further recommendation about antibiotic. And concern for possible coved 19 infection Review of Systems Positive point has been mentioned in HPI rest of the systems are negative Past Medical History Past Medical History: Atrial Fibrillation, Coronary Artery Disease (CAD), COPD, GERD/Reflux, Hyperlipidemia, Myocardial Infarction (DC), Osteoarthritis (OA), Sleep Apnea/CPAP/BIPAP, Vascular Disorder Additional Past Medical History / Comment(s): COPD with a baseline FEV1 of 20% of predicted, obstructive sleep apnea moderate severe with an AHI of 17, chronic atrial fibrillation, coronary artery disease, obesity with a BMI of 38.7, hyperlipidemia, coronary artery disease, abdominal aortic aneurysm, history of right lower extremity phlebitis, history of right wrist fracture, previous history of myocardial infarction Last Myocardial Infarction Date:: 08/2016 History of Any Multi-Drug Resistant Organisms: MRSA Year Discovered:: 2007 MDRO Source:: leg Past Surgical History: Appendectomy, Heart Catheterization, Heart Catheterization With Stent, Tonsillectomy Additional Past Surgical History / Comment(s): Colonoscopy, R leg vein stripping. Past Anesthesia/Blood Transfusion Reactions: No Reported Reaction Date of Last Stent Placement:: 09/02/16 Past Psychological History: No Psychological Hx Reported Additional Psychological History / Comment(s): Pt resides with spouse. He is independent. He has home oxygen and a nebulizer and a glucometer. Smoking Status: Former smoker Past Alcohol Use History: Rare Additional Past Alcohol Use History / Comment(s): Patient was a smoker of 2-3 packs per day for a number of years quit 20 years ago. He denies any alcohol use. He lives at home with his . He also chewed during that time frame. Past Drug Use History: None Reported - Past Family History Father Family Medical History: No Reported History Additional Family Medical History / Comment(s): in his 80's HAD HEART ISSUES Mother Family Medical History: Dementia Additional Family Medical History / Comment(s): Mother in her 80's Sister(s) Family Medical History: CVA/TIA Additional Family Medical History / Comment(s): Patient has 2 sisters. One has history of stroke in 1 has no major medical problems that he is aware of. Patient does not have any brothers. Daughter(s) Family Medical History: No Reported History Son(s) Family Medical History: No Reported History Additional Family Medical History / Comment(s): Patient has 1 son and 2 daughte rs with no major medical problems. Medications and Allergies Home Medications Medication Instructions Recorded Confirmed Type Atorvastatin [Lipitor] 80 mg PO HS #30 tab 08/18/16 11/09/19 Rx Albuterol Sulfate [Proair Hfa] 2 puff INHALATION RT-Q6H PRN 11/07/17 11/09/19 History Aspirin 81 mg PO DAILY chew 12/11/17 11/09/19 Rx Apixaban [Eliquis] 5 mg PO BID #60 tab 10/28/18 11/09/19 Rx Diltiazem HCl [Cardizem] 90 mg PO TID #90 tablet 10/28/18 11/09/19 Rx Budesonide [Pulmicort] 0.5 mg INHALATION RT-BID 06/29/19 11/09/19 History Digoxin [Lanoxin] 250 mcg PO DAILY #30 tab 07/07/19 11/09/19 Rx Metoprolol Tartrate [Lopressor] 25 mg PO BID #60 tab 07/07/19 11/09/19 Rx Albuterol Nebulized [Ventolin 2.5 mg INHALATION RT-QID 11/09/19 11/10/19 History Nebulized] Breathe Sinus And Lungs Health 1 cap PO DAILY 11/09/19 11/09/19 History Ipratropium Nebulized [Atrovent 0.5 mg INHALATION RT-Q6H PRN 11/09/19 11/09/19 History Nebulized 0.2 MG/ML] Allergies Allergy/AdvReac Type Severity Reaction Status Date / Time Penicillins Allergy Anaphylaxis Verified 11/09/19 22:55 sulfamethoxazole Allergy Rash/Hives Verified 11/09/19 22:55 [From Bactrim] trimethoprim [From Bactrim] Allergy Rash/Hives Verified 11/09/19 22:55 Physical Exam Vitals: Vital Signs Temp Pulse Resp BP Pulse Ox 11/10/19 23:00 79 11/10/19 22:00 86 22 96 11/10/19 21:22 93 11/10/19 21:04 112 H 94 L 11/10/19 21:00 79 24 167/92 97 11/10/19 20:00 99.2 F 89 23 109/98 99 11/10/19 19:00 73 28 H 145/80 98 11/10/19 18:00 80 16 155/94 94 L 11/10/19 17:00 104 H 18 167/95 98 11/10/19 16:00 98.9 F 82 16 165/94 95 11/10/19 15:00 86 10 L 144/77 96 11/10/19 14:00 73 15 124/111 95 11/10/19 13:00 90 25 H 119/72 92 L 11/10/19 12:00 99.0 F 78 16 144/83 97 11/10/19 11:00 70 23 141/87 96 11/10/19 10:00 98 17 163/117 98 11/10/19 09:15 84 11/10/19 09:00 90 18 145/94 97 11/10/19 08:45 89 11/10/19 08:00 98.1 F 85 16 154/91 97 11/10/19 07:00 86 22 117/88 95 11/10/19 06:00 101 H 21 126/84 96 11/10/19 05:00 100 19 128/75 94 L 11/10/19 04:38 18 11/10/19 04:00 98 F 102 H 19 137/76 94 L 11/10/19 03:00 99 18 124/76 94 L 11/10/19 02:38 20 11/10/19 02:09 20 11/10/19 02:00 98.7 F 112 H 19 124/76 97 11/10/19 00:07 108 H 18 133/67 97 Intake and Output 11/10/19 11/10/19 11/11/19 14:59 22:59 06:59 Intake Total 365 1101 75 Output Total 100 640 Balance 265 461 75 Intake: IV 140 225 75 Levofloxacin 500Mg-D5w 100 Pmx 500 mg In Dextrose/ Water 1 100ml.bag @ 100 mls/hr IVPB Q24HR JOE Rx# :[id number] Sodium Chloride 0.9% 40 225 75 Intake, IV Titration 225 876 Amount Sodium Chloride 0.9% 1, 225 375 000 ml @ 75 mls/hr IV . [id number] JOE Rx#:[id number] Vancomycin 1,750 mg In 501 Sodium Chloride 0.9% 500 ml 500 ml @ 167 mls/hr IVPB Q8H JOE Rx#: [id number] Output: Urine 100 640 Other: Voiding Method Indwelling Catheter Diaper Incontinent # Voids 1 1 1 GENERAL DESCRIPTION: Elderly male lying in bed, no distress. No tachypnea or accessory muscle of respiration use. HEENT: Shows Pallor , no scleral icterus. Oral mucous membrane is dry. NECK: Trachea central, no thyromegaly. LUNGS: Unlabored breathing. Decreased breath sounds at bases. No wheeze or crackle. HEART: S1, S2, regular rate and rhythm. ABDOMEN: Soft, no tenderness , guarding or rigidity EXTREMITIES: No edema of feet. SKIN: No rash, no masses palpable. NEUROLOGICAL: The patient is awake, alert, oriented x3, mood and affect normal. Results CBC & Chem 7: 11/10/19 03:21 11/10/19 03:21 Labs: Abnormal Lab Results - Last 24 Hours (Table) 11/10/19 11/10/19 Range/Units 03:21 03:21 Plt Count 125 L (150-450) k/uL Chloride 108 H (98-107) mmol/L Creatinine 0.65 L (0.66-1.25) mg/dL Total Protein 5.4 L (6.3-8.2) g/dL Albumin 3.2 L (3.5-5.0) g/dL Assessment and Plan Assessment: 1-patient presented to hospital with sepsis in this patient noted to have fever tachycardia with evidence of left lower lobe pneumonia and recent in-hospital stay will need to cover for resistant gram-positive as well as gram-negative pathogen 2-patient with multiple antibiotic allergies that would limit the number of antibiotics safe to use. 3-clinical suspicious low COVID19 infection (1) Sepsis Current Visit: Yes Status: Acute Code(s): A41.9 - SEPSIS, UNSPECIFIED ORGANISM SNOMED Code(s): 61241737 (2) Pneumonia Current Visit: Yes Status: Acute Code(s): J18.9 - PNEUMONIA, UNSPECIFIED ORGANISM SNOMED Code(s): 905809113 Plan: 1- We will try to obtain a sputum for Gram stain and culture 2-vancomycin pharmacy to dose her with a target trough of 15 while watching her kidney function and Vanco trough closely. 3-add cefepime 2 g every 12 hours for gram-negative coverage. 4-COVID19 PCR has been sent we will wait for results to be finalized keep the patient in respiratory isolation We will follow on clinical condition and cultures to further adjust medication if needed Thank you for this consultation we will follow the patient along with you Time with Patient: Greater than 30
[2019-11-11] MEDS: VANCOMYCIN 1,750 MG in SODIUM CHLORIDE 0.9% 500 ML 500 ML IVPB SCH ×3 (02:35→17:53)
[2019-11-11 05:05] LABS: Basophils % (A) 0 %; Eosinophils # (A) 0.1 k/uL (0-0.7); Eosinophils % (A) 1 %; HCT 45.3 % (39.0-53.0); HGB 14.8 gm/dL (13.0-17.5); Lymphocytes # (A) 0.9 k/uL (1.0-4.8); Lymphocytes % (A) 12 %; MCH 32.9 pg (25.0-35.0); MCHC 32.7 g/dL (31.0-37.0); MCV 100.6 fL (80.0-100.0); Mean Platelet Volume 7.9; Monocytes # (A) 0.4 k/uL (0-1.0); Monocytes % (A) 5 %; Neutrophils # (A) 5.5 k/uL (1.3-7.7); Neutrophils % (A) 78 %; Platelet Count 108 k/uL (150-450); RDW 13.3 % (11.5-15.5); WBC 7.1 k/uL (3.8-10.6)
[2019-11-11 05:35] LABS: African American GFR (CKD) >90 (>60 ml/min/1.73 sqM); Anion Gap 6 mmol/L; Blood Urea Nitrogen 10 mg/dL (9-20); Calcium 8.1 mg/dL (8.4-10.2); Carbon Dioxide 24 mmol/L (22-30); Chloride 102 mmol/L (98-107); Glucose 105 mg/dL (74-99); Non-African American GFR(CKD) >90 (>60 ml/min/1.73 sqM); Sodium 132 mmol/L (137-145)
[2019-11-11 05:38] LABS: Potassium 4.6 mmol/L (3.5-5.1)
[2019-11-11] MEDS: PANTOPRAZOLE 40 MG TABLET PO SCH (06:34)
--- NOTE | 2019-11-11 07:13 | XR ---
EXAMINATION TYPE: XR chest 1V portable DATE OF EXAM: 11/11/2019 CLINICAL HISTORY: Difficulty breathing and pneumonia progress study. TECHNIQUE: Single AP portable semiupright view of the chest is obtained. COMPARISON: Chest x-ray from one day earlier and older studies. CTA chest June 29, 2019. FINDINGS: There is persistent cardiomegaly with ectatic thoracic aorta. There is persistent left-lucie ed volume loss and left mid to basilar reticulonodular and diffuse opacities. There is worsening medi al right basilar opacities. Elevated left hemidiaphragm has been present since multiple prior studies . Osseous structures are intact. IMPRESSION: Cardiomegaly and left-sided volume loss and background chronic emphysematous change with left mid to lower lung alveolar and interstitial edema and/or infiltrates and developing right medial basilar acute infiltrate and/or atelectasis are present with both continued progression from most re cent studies. Correlate clinically for worsening symptoms.
[2019-11-11] MEDS: BUDESONIDE 0.5 MG/2 ML NEBU INHALATION SCH ×2 (08:07→18:07)
[2019-11-11] MEDS: ALBUTEROL NEBULIZED 2.5 MG/3 ML INHALATION PRN ×2 (08:07→11:38)
[2019-11-11] MEDS: IPRATROPIUM 0.5 MG/2.5 ML NEBU INHALATION PRN ×2 (08:07→11:38)
[2019-11-11] MEDS: CEFEPIME 2 GM in SODIUM CHLORIDE 0.9% 100 ML IVPB SCH ×2 (08:29→20:49)
[2019-11-11] MEDS: DILTIAZEM ORAL 30 MG TAB PO SCH ×3 (08:30→21:13)
[2019-11-11] MEDS: DIGOXIN 250 MCG TAB PO SCH (08:30)
[2019-11-11] MEDS: METOPROLOL TARTRATE 25 MG TAB PO SCH ×2 (08:30→20:49)
[2019-11-11] MEDS: ASPIRIN 81 MG PO SCH (08:30)
[2019-11-11] MEDS: LEVOFLOXACIN 500MG-D5W PMX 500 MG in DEXTROSE/WATER 1 100ML.BAG IVPB SCH (08:30)
[2019-11-11] MEDS: APIXABAN 5 MG TAB PO SCH ×2 (08:30→20:49)
--- NOTE | 2019-11-11 11:00 | ECHOF ---
Referral Reason:assess heart MEASUREMENTS -------- HEIGHT: 182.9 cm WEIGHT: 116.1 kg BP: 144/83 RVIDd: 3.1 cm (< 3.3) IVSd: 1.8 cm (0.6 - 1.1) LVIDd: 4.0 cm (3.9 - 5.3) LVPWd: 1.7 cm (0.6 - 1.1) IVSs: 2.1 cm LVIDs: 3.3 cm LVPWs: 1.8 cm LA Diam: 3.7 cm (2.7 - 3.8) LAESV Index (A-L): 20.99 ml/m Ao Diam: 3.9 cm (2.0 - 3.7) AV Cusp: 2.6 cm (1.5 - 2.6) MV EXCURSION: 19.330 mm (> 18.000) MV EF SLOPE: 101 mm/s (70 - 150) EPSS: 1.4 cm RAP: 5.00 mmHg RVSP: 28.15 mmHg FINDINGS -------- Atrial fibrillation. This was a technically adequate study. The left ventricular size is normal. There is severe concentric left ventricular hypertrophy. Ove rall left ventricular systolic function is low-normal with, an EF between 50 - 55 %. The right ventricle is normal in size. Normal LA size by volume 22+/-6 ml/m2. The right atrium is normal in size. Interatrial and interventricular septum intact. There is mild aortic valve sclerosis. The mitral valve is normal. Mild tricuspid regurgitation present. Right ventricular systolic pressure is normal at < 35 mmHg. Trace/mild (physiologic) pulmonic regurgitation. The aortic root is dilated measuring 3.9cm. Normal inferior vena cava with normal inspiratory collapse consistent with estimated right atrial pre ssure of 5 mmHg. There is no pericardial effusion. CONCLUSIONS -------- 1. Atrial fibrillation. 2. This was a technically adequate study. 3. The left ventricular size is normal. 4. There is severe concentric left ventricular hypertrophy. 5. Overall left ventricular systolic function is low-normal with, an EF between 50 - 55 %. 6. The right ventricle is normal in size. 7. Normal LA size by volume 22+/-6 ml/m2. 8. The right atrium is normal in size. 9. Interatrial and interventricular septum intact. 10. There is mild aortic valve sclerosis. 11. The mitral valve is normal. 12. Mild tricuspid regurgitation present. 13. Right ventricular systolic pressure is normal at < 35 mmHg. 14. Trace/mild (physiologic) pulmonic regurgitation. 15. The aortic root is dilated measuring 3.9cm. 16. Normal inferior vena cava with normal inspiratory collapse consistent with estimated right atrial pressure of 5 mmHg. 17. There is no pericardial effusion. QUEBRACHO TANNER: Christa Corbin RDCS
[2019-11-11] MEDS ORDERED: FUROSEMIDE 10 MG/ML 4 ML VIAL IV STA (11:29)
--- NOTE | 2019-11-11 11:34 | P.PN ---
Subjective Progress Note Date: 11/11/19 Principal diagnosis: Acute left lower lobe pneumonia This is a 69-year-old white male, known history of multiple medical problems including chronic atrial fibrillation, coronary artery disease, chronic obstructive pulmonary disease, obstructive sleep apnea syndrome, obesity, BMI of 38.7, previous SD, patient was recently admitted to [facility], and his admission was mostly related to cardiac arrhythmias in the form of atrial fibrillation with RVR. He was discharged yesterday from [facility], and he was supposed to follow-up eventually with another group of cardiology out of town. During his admission to the hospital, patient had symptoms of cough, and low-grade fever, but since discharge, his symptoms have worsened. Patient was brought in with worsening symptoms of shortness of breath, fever, and abnormal chest x-ray showing extensive left lower lobe pneumonia. Patient was admitted, placed empirically on antibiotics, and I was asked to see him on consultation. No recent travel history, no recent exposure to any patient with coronal virus infection. However considering his symptoms and his presentation, coronary virus testing was requested. Patient was placed in droplet isolation. Chest x-ray clearly showing left basilar airspace disease. CBC showed normal platelets on admission, normal WBC count, and 11% lymphocytes. Screening for influenza A was negative screening for influenza B was also negative. Reevaluated today on 11/11/19, patient remains in the ICU on droplet precautions, feeling better, breathing easier, continues to have intermittent episodes of cough which is productive with yellow phlegm. Chest x-ray is actually worse today. Patient developed a new right lower lobe infiltrate, and now he has bibasilar infiltrates. Echocardiogram showed good LV function. And no evidence of pulmonary hypertension. There is however severe concentric left ventricular hypertrophy. CBC is relatively normal. Basic metabolic profile is normal renal profile is normal. His BNP level on admission was elevated, hence would recommend a dose of Lasix to be given today. In the meantime the patient remains on bronchodilators, empiric antibiotics, and his coronal virus testing is pending. Patient remains on 6 L nasal cannula, continues to have O2 saturation in the low 90s. He had a T-max in the last 24 hours of 99.4 Objective - Vital Signs Vital signs: Vital Signs Temp 99.4 F 11/11/19 08:00 Pulse 137 H 11/11/19 09:00 Resp 21 11/11/19 09:00 BP 148/89 11/11/19 09:00 Pulse Ox 94 L 11/11/19 09:00 Intake & Output 11/10/19 11/11/19 11/11/19 18:59 06:59 18:59 Intake Total 1166 900 315 Output Total 740 Balance 426 900 315 Weight 116.3 kg Intake: IV 140 825 225 Levofloxacin 500Mg-D5w 100 Pmx 500 mg In Dextrose/ Water 1 100ml.bag @ 100 mls/hr IVPB Q24HR JOE Rx# :[id number] Sodium Chloride 0.9% 40 825 225 Intake, IV Titration 1026 75 Amount Sodium Chloride 0.9% 1, 525 75 000 ml @ 75 mls/hr IV . [id number] JOE Rx#:[id number] Vancomycin 1,750 mg In 501 Sodium Chloride 0.9% 500 ml 500 ml @ 167 mls/hr IVPB Q8H JOE Rx#: [id number] Oral 90 Output: Urine 740 Other: Voiding Method Diaper Diaper Indwelling Catheter Incontinent Incontinent # Voids 1 1 1 - Exam Physical Exam: Revealed 69-year-old white male in no distress. On 6 L nasal cannula Head: Atraumatic normocephalic. Short obese neck is noted. HEENT:[Neck is supple.] [No neck masses.] [No thyromegaly.] [No JVD.] Chest: [Symmetrical chest expansion, crackles and rhonchi at the bases especially at the left base bilaterally. Cardiac Exam: [Normal S1 and S2, no S3 gallop, 2/6 systolic murmur thought the precordium. Abdomen: [Obese, Soft, nontender, no megaly, no rebound, no guarding, normal bowel sounds.] Extremities: [No clubbing, no edema, no cyanosis.] Neurological Exam: [No focal neurologic deficit.] Alert and oriented 3. Psychiatric: Normal mood, affect and normal mental status examination. Skin: No rashes. - Labs CBC & Chem 7: 11/11/19 04:48 11/11/19 04:48 Labs: Abnormal Lab Results - Last 24 Hours (Table) 11/11/19 11/11/19 Range/Units 04:48 04:48 MCV 100.6 H (80.0-100.0) fL Plt Count 108 L (150-450) k/uL Lymphocytes # 0.9 L (1.0-4.8) k/uL Sodium 132 L (137-145) mmol/L Creatinine 0.57 L (0.66-1.25) mg/dL Glucose 105 H (74-99) mg/dL Calcium 8.1 L (8.4-10.2) mg/dL Microbiology - Last 24 Hours (Table) 11/10/19 00:54 Blood Culture - Preliminary Blood No Growth after 24 hours 11/09/19 21:30 Blood Culture - Preliminary Blood No Growth after 24 hours Assessment and Plan Assessment: Impression: Acute bibasilar pneumonia likely healthcare acquired pneumonia. Paroxysmal atrial fibrillation. History of underlying coronary artery disease. History of COPD with mild exacerbation. Degenerative joint disease. Obstructive sleep apnea syndrome, uses BiPAP at home. Recommendation: Continue antibiotics as ordered, however considering the patient had previous MRSA infection, will definitely empirically use vancomycin, and will add Levaquin considering his ALLERGY to penicillin and sulfa. Continue bronchodilators. Trial of diuretics since the patient may have possibly some component of acute diastolic congestive heart failure however this is not certain. Resume cardiac meds. Keep the patient in isolation until covid 19 results are available. Continue to use precautions/droplet isolation, Continue GI and DVT prophylaxis. Continue Eliquis. Will follow. Time with Patient: Less than 30
[2019-11-11] MEDS ORDERED: methylPREDNISolone SOD SUCCI 40 MG/ML 1 ML VIAL IV SCH (12:00)
[2019-11-11] MEDS: INSULIN ASPART (NovoLOG) 100 UNIT/ML VIAL SQ SCH ×3 (13:08→21:13)
--- NOTE | 2019-11-11 13:32 | PN ---
PROGRESS NOTE This patient's electronic medical records reviewed. This patient has a known history of coronary artery disease, atrial fibrillation and currently is being treated for extensive bilateral pneumonia, most likely hospital-acquired. Patient's heart rate is now 90-100 per minute, blood pressure is 148/89 mmHg. First and second heart sounds are normal. Lung examination reveals bilateral basilar rales. We will continue the patient's current cardiac medications including Eliquis. MMODL / IJN: [id number] /
[2019-11-11] MEDS: methylPREDNISolone SOD SUCCI 125 MG/2 ML VIAL IV SCH ×3 (13:55→23:56)
--- NOTE | 2019-11-11 14:50 | P.PN ---
Subjective Progress Note Date: 11/11/19 This is a 69-year-old male patient of Dr. Holland and Dr. Berumen with a previous medical history significant for paroxysmal atrial fibrillation, hypertension and hypertensive cardiovascular disease, hyperlipidemia, obesity with obstructive sleep apnea, CAD with ST elevation [place] post-PCI of the RCA back in August 2016, advanced COPD with FEV1 of 20% of predicted, chronic hypoxic respiratory failure, diabetes mellitus type 2, remote history of tobacco use. Patient has had previous admissions for acute COPD exacerbation as well as atrial flutter or atrial fibrillation with RVR. Patient most recently was hospitalized at [facility] at which time he was treated for atrial fibrillation with RVR, and pneumonia with lactic acidosis. Patient was treated with Rocephin and azithromycin. Patient was discharged home on -. Patient was instructed to hold eliquis as he was scheduled for heart catheterization on Saturday. Patient went to his rehab trainer in [place] and was to be scheduled for heart catheterization today. He then developed fever of 104 at home as well as shortness of breath and productive cough. Patient came into [facility] emergency center for evaluation. Temperature 102.3, heart rate 101 and jumped up to 177, blood pressure 125/70, pulse ox 99%.. He was found to be in A. fib with RVR, influenza and RSV negative. patient was tested for COVID19 which is pending. CBC, CMP unremarkable. Lactic acid 1.9, troponin 0.012, proBNP 1680. Chest x-ray reveals patchy atelectasis at the lung bases is new and increased compared to old exam. No heart failure seen. Repeat Chest x-ray reveals worsening left basilar airspace disease. Primary diagnostic consideration is for unifocal pneumonia. Patient has been admitted to the intensive care unit and consult in place with pulmonary medicine and cardiology consult will be added. night monitor is now A. 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 Cardizem drip will be discontinued and home oral medications resumed. 11/10: Patient is seen in the intensive care unit. He is in isolation for possible Covid 19 infection. Case was reviewed with the nurse outside the patient's room. No hands-on physical exam was performed. Patient is currently on O2 at 6 L nasal cannula with pulse ox of 95%, recommended that patient be weaned down on oxygen level. Temperature max today is 100.3. Heart rate in the 90s and low 100s. Blood pressure 119/76. Repeat blood work reveals a platelet count 108, WBC 7.1, hemoglobin 14.8. Sodium 132, potassium 4.6, chloride 102, CO2 24, BUN 10 and creatinine 0.57. Blood culture 2 no growth at 24 hours. COVID-19 testing remains pending. Objective - Vital Signs Vital signs: Vital Signs Temp 99.4 F 11/11/19 08:00 Pulse 108 H 11/11/19 11:38 Resp 21 11/11/19 09:00 BP 148/89 11/11/19 09:00 Pulse Ox 94 L 11/11/19 09:00 Intake & Output 11/10/19 11/11/19 11/11/19 18:59 06:59 18:59 Intake Total 1166 900 315 Output Total 740 Balance 426 900 315 Weight 116.3 kg Intake: IV 140 825 225 Levofloxacin 500Mg-D5w 100 Pmx 500 mg In Dextrose/ Water 1 100ml.bag @ 100 mls/hr IVPB Q24HR [facility] Rx# :[id number] Sodium Chloride 0.9% 40 825 225 Intake, IV Titration 1026 75 Amount Sodium Chloride 0.9% 1, 525 75 000 ml @ 75 mls/hr IV . [id number] [facility] Rx#:[id number] Vancomycin 1,750 mg In 501 Sodium Chloride 0.9% 500 ml 500 ml @ 167 mls/hr IVPB Q8H [facility] Rx#: [id number] Oral 90 Output: Urine 740 Other: Voiding Method Diaper Diaper Indwelling Catheter Incontinent Incontinent # Voids 1 1 1 - Exam Review of Systems Constitutional: Reports chills, Reports fatigue, Reports fever, Reports lethargy, Reports malaise, Reports poor appetite, Reports weakness Ears, nose, mouth and throat: Denies dysphagia, Denies nasal congestion, Denies nasal discharge, Denies sore throat, Denies vertigo Cardiovascular: Reports dyspnea on exertion, Reports shortness of breath, Denies chest pain, Denies leg edema Respiratory: Reports cough with sputum, Reports dyspnea, Reports respiratory infections, Denies cough, Denies excessive sputum, Denies hemoptysis Gastrointestinal: Denies abdominal pain, Denies diarrhea, Denies nausea, Denies vomiting Genitourinary: Denies dysuria, Denies urinary frequency, Denies urinary retention Musculoskeletal: Reports muscle weakness, Denies frequent falls, Denies gait dysfunction, Denies myalgias Integumentary: Denies pruritus, Denies rash, Denies wounds Neurological: Denies change in mentation, Denies change in speech, Denies numbness, Denies weakness Psychiatric: Denies anxiety, Denies depression Endocrine: Denies fatigue, Denies weight change Physical examination--hands-on physical exam deferred to limit exposure. Gen: This is a 69-year-old man. He is resting in the ICU bed and a ppears to be comfortable and in no acute distress. HEENT: Head is atraumatic, normocephalic. Pupils equal, round. Sclerae is anicteric. NECK: Supple. No JVD. No lymphadenopathy. No thyromegaly. LUNGS: Clear to auscultation. No wheezes or rhonchi. No intercostal retractions. HEART: Irregularly irregular. Systolic ejection murmur. ABDOMEN: Soft. Bowel sounds are present. No masses. No tenderness. EXTREMITIES: No pedal edema. No calf tenderness. NEUROLOGICAL: Patient is awake, alert and oriented x3. Cranial nerves 2 through 12 are grossly intact. - Labs CBC & Chem 7: 11/11/19 04:48 11/11/19 04:48 Labs: Abnormal Lab Results - Last 24 Hours (Table) 11/11/19 11/11/19 Range/Units 04:48 04:48 MCV 100.6 H (80.0-100.0) fL Plt Count 108 L (150-450) k/uL Lymphocytes # 0.9 L (1.0-4.8) k/uL Sodium 132 L (137-145) mmol/L Creatinine 0.57 L (0.66-1.25) mg/dL Glucose 105 H (74-99) mg/dL Calcium 8.1 L (8.4-10.2) mg/dL Microbiology - Last 24 Hours (Table) 11/10/19 00:54 Blood Culture - Preliminary Blood No Growth after 24 hours 11/09/19 21:30 Blood Culture - Preliminary Blood No Growth after 24 hours Assessment and Plan Plan: 1. Acute febrile illness most likely secondary to left-sided pneumonia, gram- negative pneumonia. Patient is in isolation and tested for COVID-19, remains pending. Atrovent nebulizer treatment every 6 hours as needed, cefepime, Levaquin 500 mg daily, vancomycin. Consults with Dr. Lock and Dr. Ordonez appreciated. 2. A. fib with RVR. Heart rate is currently controlled. Patient continued on eliquis 5 mg twice daily, digoxin 250 g daily, Cardizem oral 90 mg 3 times daily, Lopressor 25 mg twice daily. Cardiology consult. 3. Advanced COPD. Continue Atrovent, Pulmicort twice daily, consult with pulmonary medicine 4. Obstructive sleep apnea. 5. Known coronary artery disease post angioplasty and stent placement. Patient was scheduled to undergo catheterization today at [facility].. 6. Hypertension hypertensive cardiovascular disease. 7. Abdominal aortic aneurysm monitored by vascular surgery. 8. GI prophylaxis. Protonix. 9. DVT prophylaxis. Eliquis. 10. Chronic hypoxic respiratory failure on home O2. Discharge plan: To be determined. Impression and plan of care have been directed as dictated by the signing physician. Joy Baxter nurse practitioner acting as scribe for signing physician.
[2019-11-11] MEDS ORDERED: ACETAMINOPHEN IV (For NPO) 1,000 MG in EMPTY BAG 1 BAG IVPB ONE (14:54)
[2019-11-11] MEDS ORDERED: VANCOMYCIN TROUGH DUE 1 EACH MISC MISCELLANE ONE (17:30)
--- NOTE | 2019-11-11 18:22 | PN ---
PROGRESS NOTE DATE OF SERVICE: 11/11/2019 REASON FOR FOLLOWUP: Pneumonia. INTERVAL HISTORY: The patient had a low-grade fever of 100.3 this afternoon. The patient is feeling weak and lethargic. No energy. Denies having any chest pain. Did have a cough; not bringing up any sputum. No nausea. No vomiting. No abdominal pain or diarrhea. PHYSICAL EXAMINATION: Blood pressure 119/73 with a pulse of 111, temperature 100.3. He is 91% on 4 L nasal cannula. General description is a middle-aged male lying in bed in no distress. RESPIRATORY SYSTEM: Unlabored breathing with decreased breath sounds at the base. No wheeze. HEART: S1, S2. Regular rate and rhythm. ABDOMEN: Soft. No tenderness. LABS: Hemoglobin is 14.8, white count 7.1. BUN of 10, creatinine 0.57. Blood cultures have been negative so far. Sputum has not been collected. DIAGNOSTIC IMPRESSION AND PLAN: Patient admitted to hospital with increasing shortness of breath and a fever in this patient who did have a component of pneumonia with a concern for possible community- acquired versus nosocomial. Patient is currently covered with cefepime and vancomycin; to continue. Try to obtain a sputum sample to narrow down his antibiotics. Continue with supportive care. MMODL / IJN: [id number] / MTDGlenda
[2019-11-11] MEDS: ATORVASTATIN 80 MG TAB PO SCH (20:49)
[2019-11-11 21:05] LABS: Glucose,Whole Blood 162 mg/dL (75-99)
[2019-11-12] MEDS: VANCOMYCIN 1,750 MG in SODIUM CHLORIDE 0.9% 500 ML 500 ML IVPB SCH ×3 (01:44→17:50)
[2019-11-12 04:50] LABS: Basophils % (A) 0 %; Eosinophils % (A) 0 %; HGB 14.7 gm/dL (13.0-17.5); Lymphocytes # (A) 0.3 k/uL (1.0-4.8); Lymphocytes % (A) 6 %; MCH 32.3 pg (25.0-35.0); MCHC 33.5 g/dL (31.0-37.0); MCV 96.4 fL (80.0-100.0); Mean Platelet Volume 7.8; Monocytes # (A) 0.1 k/uL (0-1.0); Monocytes % (A) 3 %; Neutrophils # (A) 4.7 k/uL (1.3-7.7); Neutrophils % (A) 90 %; Platelet Count 139 k/uL (150-450); RBC 4.56 m/uL (4.30-5.90); RDW 13.2 % (11.5-15.5); WBC 5.2 k/uL (3.8-10.6)
[2019-11-12 05:05] LABS: African American GFR (CKD) >90 (>60 ml/min/1.73 sqM); Anion Gap 5 mmol/L; Blood Urea Nitrogen 16 mg/dL (9-20); Calcium 8.3 mg/dL (8.4-10.2); Carbon Dioxide 28 mmol/L (22-30); Chloride 100 mmol/L (98-107); Glucose 195 mg/dL (74-99); Non-African American GFR(CKD) >90 (>60 ml/min/1.73 sqM); Potassium 4.7 mmol/L (3.5-5.1); Sodium 133 mmol/L (137-145)
[2019-11-12] MEDS: PANTOPRAZOLE 40 MG TABLET PO SCH (06:32)
[2019-11-12] MEDS: methylPREDNISolone SOD SUCCI 125 MG/2 ML VIAL IV SCH ×2 (06:32→16:32)
[2019-11-12 06:40] LABS: Glucose,Whole Blood 182 mg/dL (75-99)
[2019-11-12] MEDS: INSULIN ASPART (NovoLOG) 100 UNIT/ML VIAL SQ SCH ×4 (06:43→21:19)
--- NOTE | 2019-11-12 08:08 | XR ---
EXAMINATION TYPE: XR chest 1V portable DATE OF EXAM: 11/12/2019 COMPARISON: 11/11/2019 HISTORY: Evaluate fluid overload. Pneumonia. TECHNIQUE: Single frontal view of the chest is obtained. FINDINGS: Redemonstration of right basilar linear opacity as seen on the prior. Retrocardiac airspac e disease is similar with at least small left pleural effusion. No right pleural effusion seen. Cardi omediastinal silhouette is partially obscured but overall stable. No pneumothorax. IMPRESSION: Similar at least small left pleural effusion and left basilar airspace disease as well a s stable right infrahilar airspace disease that may represent atelectasis or developing pneumonia.
[2019-11-12] MEDS: ALBUTEROL NEBULIZED 2.5 MG/3 ML INHALATION PRN ×3 (08:11→19:37)
[2019-11-12] MEDS: BUDESONIDE 0.5 MG/2 ML NEBU INHALATION SCH ×2 (08:11→19:37)
[2019-11-12] MEDS: IPRATROPIUM 0.5 MG/2.5 ML NEBU INHALATION PRN ×3 (08:11→19:37)
[2019-11-12] MEDS: CEFEPIME 2 GM in SODIUM CHLORIDE 0.9% 100 ML IVPB SCH ×2 (08:29→21:00)
[2019-11-12] MEDS: ASPIRIN 81 MG PO SCH (08:29)
[2019-11-12] MEDS: DILTIAZEM ORAL 30 MG TAB PO SCH ×3 (08:29→21:01)
[2019-11-12] MEDS: METOPROLOL TARTRATE 25 MG TAB PO SCH ×2 (08:30→21:02)
[2019-11-12] MEDS: DIGOXIN 250 MCG TAB PO SCH (08:30)
[2019-11-12] MEDS: APIXABAN 5 MG TAB PO SCH ×2 (08:30→21:02)
[2019-11-12] MEDS: LEVOFLOXACIN 500MG-D5W PMX 500 MG in DEXTROSE/WATER 1 100ML.BAG IVPB SCH (08:31)
[2019-11-12] MEDS ORDERED: FUROSEMIDE 10 MG/ML 4 ML VIAL IV STA (11:00)
--- NOTE | 2019-11-12 11:10 | PN ---
PROGRESS NOTE This patient's medical records and lab tests and vital signs reviewed. This patient is admitted with bilateral pneumonia. He is doing stable. He remains afebrile. The patient is in atrial fibrillation with a controlled rate. He denies any chest pain or shortness of breath. We will recommend to continue the patient's current medications and we will see the patient p.r.n. LANDY / DANIELLA: [id number] /
--- NOTE | 2019-11-12 11:11 | CDI ---
Documentation Clarification Form Date: 11/12/2019 10:17:39 AM From: Mary Hernandez RN, CCDS Admit Date: 11/10/2019 12:13:00 AM Patient Name: Laron Junior V Visit Number: [id number] Discharge Date: ATTENTION: The Clinical Documentation Specialists (CDI) and [facility] Coding Staff appreciate your assistance in clarifying documentation. Please respond to the clarification below the line at the bottom and electronically sign. The CDI & [facility] Coding staff will review the response and follow-up if needed. Please note: Queries are made part of the Legal Health Record. If you have any questions, please contact the author of this message via ITS. Dr. Candy Lozada The patient presented to ED on 11/08 with severe shortness of breath, fever, pneumonia ruled in per pulmonary (Dr Lock on 11/10/19. 11/09 ID (Dr. Ordonez) Sepsis, Pneumonia Clarification is requested to rule sepsis in or out History/Risk Factors: Atrial Fibrillation, CAD, COPD Clinical Indicators: 69-year-old male present for ED and on 11/09 pulmonary ruled in for pneumonia. 11/08 WBC 9.2 11/08 Lactic acid: 1.9 11/08 Blood cultures: Pending 11/08 Vitals signs on admission: 125/70 101 28 102.3 99 % Non-Rebreather, Treatment: Vancomycin IV 1,750 mg IV Q8 Hrs Cefepime 2 gm IV Q 12, Levaquin 500 mg IV Q 24 hrs Respiratory Isolation COVID 19 pending Ventolin Nebulized Q6 Hrs , Pulmicort 0.5 mg BID Solu-Medrol IV ID Consult:11/09 (Dr. Ordonez) Patient present to hospital with sepsis in this patient noted to have fever tachycardia with evidence of left lower lobe pneumonia and recent in-hospital stay will need to cover for resistant gram- positive as well as gram-negative pathogen. Sepsis In your professional opinion, please clarify if these findings signify one of the following conditions, whether the condition is POA, and cause, if known: Condition Sepsis ruled out Sepsis ruled in Other, please specify Unable to determine Present on Admission Yes No Identify the (suspected) organism Link or clarify if there is associated (due to/with): Organ failure Shock SIRS Criteria (2 or more of the following may indicate SIRS): -Temperature < 96.8F (36C) or > 101.0F (38.3C) -Heart Rate > 90 bpm -Respiratory Rate > 20 breaths/min or PaCO2 < 32 mmHg -White Blood Cell Count > 12,000 or < 4,000 cells/mm3 or > 10% bands -Lactate >2.0 mmol/L (>4.0 is equivalent to septic shock) (Last Revision: November 2017) sepsis ruled in ,present on admission - yes MTDD
[2019-11-12 11:32] LABS: Glucose,Whole Blood 228 mg/dL (75-99)
--- NOTE | 2019-11-12 11:45 | P.PN ---
Subjective Progress Note Date: 11/12/19 This is a 69-year-old male patient of Dr. Holland and Dr. Berumen with a previous medical history significant for paroxysmal atrial fibrillation, hypertension and hypertensive cardiovascular disease, hyperlipidemia, obesity with obstructive sleep apnea, CAD with ST elevation [place] post-PCI of the RCA back in August 2016, advanced COPD with FEV1 of 20% of predicted, chronic hypoxic respiratory failure, diabetes mellitus type 2, remote history of tobacco use. Patient has had previous admissions for acute COPD exacerbation as well as atrial flutter or atrial fibrillation with RVR. Patient most recently was hospitalized at [facility] at which time he was treated for atrial fibrillation with RVR, and pneumonia with lactic acidosis. Patient was treated with Rocephin and azithromycin. Patient was discharged home on -. Patient was instructed to hold eliquis as he was scheduled for heart catheterization on Saturday. 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 He then developed fever of 104 at home as well as shortness of breath and productive cough. Patient came into [facility] emergency center for evaluation. Temperature 102.3, heart rate 101 and jumped up to 177, blood pressure 125/70, pulse ox 99%.. He was found to be in A. fib with RVR, influenza and RSV negative. patient was tested for COVID19 which is pending. CBC, CMP unremarkable. Lactic acid 1.9, troponin 0.012, proBNP 1680. Chest x-ray reveals patchy atelectasis at the lung bases is new and increased compared to old exam. No heart failure seen. Repeat Chest x-ray reveals worsening left basilar airspace disease. Primary diagnostic consideration is for unifocal pneumonia. Patient has been admitted to the intensive care unit and consult in place with pulmonary medicine and cardiology consult will be added. 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 Cardizem drip will be discontinued and home oral medications resumed. 11/10: Patient is seen in the intensive care unit. He is in isolation for possible Covid 19 infection. Case was reviewed with the nurse outside the patient's room. No hands-on physical exam was performed. Patient is currently on O2 at 6 L nasal cannula with pulse ox of 95%, recommended that patient be weaned down on oxygen level. Temperature max today is 100.3. Heart rate in the 90s and low 100s. Blood pressure 119/76. Repeat blood work reveals a platelet count 108, WBC 7.1, hemoglobin 14.8. Sodium 132, potassium 4.6, chloride 102, CO2 24, BUN 10 and creatinine 0.57. Blood culture 2 no growth at 24 hours. COVID-19 testing remains pending. 11/11: Patient remains in the intensive care unit and has now been downgraded to [facility] with telemetry. Patient's less lethargic today. He is oriented 3. He received Lasix yesterday IV and diuresed well. He has had good urine output. CBC shows normal white count and hemoglobin, platelet count 139. Sodium 133, potassium 4.7, chloride 100, CO2 28, BUN 16 and creatinine 0.56. Pro-calcitonin 0.09. Blood culture no growth at 48 hours 2 specimens. Sputum culture is in progress. Repeat chest x-ray reveals small left pleural effusion and left basilar airspace disease as well as stable right infrahilar airspace disease and may represent atelectasis or developing pneumonia. Incentive spirometry and ABGs ordered. Solu-Medrol 60mg will be decreased to every 8 hours. Objective - Vital Signs Vital signs: Vital Signs Temp 98.2 F 11/12/19 04:00 Pulse 115 H 11/12/19 08:35 Resp 22 11/12/19 04:00 BP 102/70 11/12/19 04:00 Pulse Ox 93 L 11/12/19 08:16 Intake & Output 11/11/19 11/12/19 11/12/19 18:59 06:59 18:59 Intake Total 1510 2881 30 Output Total 2800 2090 45 Balance -1290 791 -15 Weight 115.5 kg Intake: IV 820 961 30 Cefepime 2 gm In Sodium 100 Chloride 0.9% 100 ml @ 200 mls/hr IVPB Q12HR [facility] Rx#:[id number] Levofloxacin 500Mg-D5w 100 Pmx 500 mg In Dextrose/ Water 1 100ml.bag @ 100 mls/hr IVPB Q24HR [facility] Rx# :[id number] Sodium Chloride 0.9% 720 360 30 Vancomycin 1,750 mg In 501 Sodium Chloride 0.9% 500 ml 500 ml @ 167 mls/hr IVPB Q8H [facility] Rx#: [id number] Intake, IV Titration 600 Amount Cefepime 2 gm In Sodium 100 Chloride 0.9% 100 ml @ 200 mls/hr IVPB Q12HR [facility] Rx#:[id number] Vancomycin 1,750 mg In 500 Sodium Chloride 0.9% 500 ml 500 ml @ 167 mls/hr IVPB Q8H [facility] Rx#: [id number] Oral 90 1920 Output: Urine 2800 2090 45 Other: Voiding Method Indwelling Catheter Indwelling Catheter # Voids 1 - Exam Review of Systems Constitutional: Reports chills, Reports fatigue, Reports fever, Reports lethargy, Reports malaise, Reports poor appetite, Reports weakness Ears, nose, mouth and throat: Denies dysphagia, Denies nasal congestion, Denies nasal discharge, Denies sore throat, Denies vertigo Cardiovascular: Reports dyspnea on exertion, Reports shortness of breath, Denies chest pain, Denies leg edema Respiratory: Reports cough with sputum, Reports dyspnea, Reports respiratory infections, Denies cough, Denies excessive sputum, Denies hemoptysis Gastrointestinal: Denies abdominal pain, Denies diarrhea, Denies nausea, Denies vomiting Genitourinary: Denies dysuria, Denies urinary frequency, Denies urinary retention Musculoskeletal: Reports muscle weakness, Denies frequent falls, Denies gait dysfunction, Denies myalgias Integumentary: Denies pruritus, Denies rash, Denies wounds Neurological: Denies change in mentation, Denies change in speech, Denies numbness, Denies weakness Psychiatric: Denies anxiety, Denies depression Endocrine: Denies fatigue, Denies weight change Physical examination--hands-on physical exam deferred to limit exposure. Gen: This is a 69-year-old man. He is resting in the ICU bed and appears to be comfortable and in no acute distress. HEENT: Head is atraumatic, normocephalic. Pupils equal, round. Sclerae is anicteric. NECK: Supple. No JVD. No lymphadenopathy. No thyromegaly. LUNGS: Clear to auscultation. No wheezes or rhonchi. No intercostal retractions. HEART: Irregularly irregular. Systolic ejection murmur. ABDOMEN: Soft. Bowel sounds are present. No masses. No tenderness. EXTREMITIES: No pedal edema. No calf tenderness. NEUROLOGICAL: Patient is awake, alert and oriented x3. Cranial nerves 2 through 12 are grossly intact. - Labs CBC & Chem 7: 11/12/19 04:27 11/12/19 04:27 Labs: Abnormal Lab Results - Last 24 Hours (Table) 11/11/19 11/12/19 11/12/19 Range/Units 21:03 04:27 04:27 Plt Count 139 L (150-450) k/uL Lymphocytes # 0.3 L (1.0-4.8) k/uL Sodium 133 L (137-145) mmol/L Creatinine 0.56 L (0.66-1.25) mg/dL Glucose 195 H (74-99) mg/dL POC Glucose (mg/dL) 162 H (75-99) mg/dL Calcium 8.3 L (8.4-10.2) mg/dL 11/12/19 Range/Units 06:39 Plt Count (150-450) k/uL Lymphocytes # (1.0-4.8) k/uL Sodium (137-145) mmol/L Creatinine (0.66-1.25) mg/dL Glucose (74-99) mg/dL POC Glucose (mg/dL) 182 H (75-99) mg/dL Calcium (8.4-10.2) mg/dL Microbiology - Last 24 Hours (Table) 11/10/19 00:54 Blood Culture - Preliminary Blood No Growth after 48 hours 11/09/19 21:30 Blood Culture - Preliminary Blood No Growth after 48 hours 11/11/19 12:20 Gram Stain - Preliminary Sputum Assessment and Plan Plan: 1. Acute febrile illness most likely secondary to left-sided pneumonia, gram- negative pneumonia. Patient is in isolation and tested for COVID-19, remains pending. Atrovent nebulizer treatment every 6 hours as needed, cefepime, Levaquin 500 mg daily, vancomycin. Decrease Solu-Medrol to 60 every [address] Lock and Dr. Ordonez appreciated. Transfer to [facility] floor with telemetry. 2. A. fib with RVR. Heart rate is currently controlled. Patient continued on eliquis 5 mg twice daily, digoxin 250 g daily, Cardizem oral 90 mg 3 times daily, Lopressor 25 mg twice daily. Cardiology consult. 3. Advanced COPD. Continue Atrovent, Pulmicort twice daily, consult with pulmonary medicine 4. Obstructive sleep apnea. 5. Known coronary artery disease post angioplasty and stent placement. Patient was scheduled to undergo catheterization at [facility].. 6. Hypertension hypertensive cardiovascular disease. 7. Abdominal aortic aneurysm monitored by vascular surgery. 8. GI prophylaxis. Protonix. 9. DVT prophylaxis. Eliquis. 10. Chronic hypoxic respiratory failure on home O2. Discharge plan: VNA. Impression and plan of care have been directed as dictated by the signing physician. Joy Baxter nurse practitioner acting as scribe for signing physician.
[2019-11-12 11:46] LABS: ABG Base Excess 1.5 mmol/L; ABG HCO3 26 mmol/L (21-25); ABG PCO2 42 mmHg (35-45); ABG PO2 73 mmHg (83-108); ABG TCO2 28 mmol/L (19-24); Allen Test Performed? Yes
--- NOTE | 2019-11-12 12:11 | P.PN ---
Subjective Progress Note Date: 11/12/19 Principal diagnosis: Acute left lower lobe pneumonia This is a 69-year-old white male, known history of multiple medical problems including chronic atrial fibrillation, coronary artery disease, chronic obstructive pulmonary disease, obstructive sleep apnea syndrome, obesity, BMI of 38.7, previous PA, patient was recently admitted to [facility], and his admission was mostly related to cardiac arrhythmias in the form of atrial fibrillation with RVR. He was discharged yesterday from [facility], and he was supposed to follow-up eventually with another group of cardiology out of town. During his admission to the hospital, patient had symptoms of cough, and low-grade fever, but since discharge, his symptoms have worsened. Patient was brought in with worsening symptoms of shortness of breath, fever, and abnormal chest x-ray showing extensive left lower lobe pneumonia. Patient was admitted, placed empirically on antibiotics, and I was asked to see him on consultation. No recent travel history, no recent exposure to any patient with coronal virus infection. However considering his symptoms and his presentation, coronary virus testing was requested. Patient was placed in droplet isolation. Chest x-ray clearly showing left basilar airspace disease. CBC showed normal platelets on admission, normal WBC count, and 11% lymphocytes. Screening for influenza A was negative screening for influenza B was also negative. Reevaluated today on 11/11/19, patient remains in the ICU on droplet precautions, feeling better, breathing easier, continues to have intermittent episodes of cough which is productive with yellow phlegm. Chest x-ray is actually worse today. Patient developed a new right lower lobe infiltrate, and now he has bibasilar infiltrates. Echocardiogram showed good LV function. And no evidence of pulmonary hypertension. There is however severe concentric left ventricular hypertrophy. CBC is relatively normal. Basic metabolic profile is normal renal profile is normal. His BNP level on admission was elevated, hence would recommend a dose of Lasix to be given today. In the meantime the patient remains on bronchodilators, empiric antibiotics, and his coronal virus testing is pending. Patient remains on 6 L nasal cannula, continues to have O2 saturation in the low 90s. He had a T-max in the last 24 hours of 99.4 Reevaluated today on 11/12/19, patient remains in the ICU, on droplet precautions and isolation. Patient continues to feel better, breathing easier, he is on 4 L nasal cannula with O2 saturation above 93%. Chest x-ray showed slight improvement in the right lower lobe infiltrate, however he continues to have significant airspace disease involving the left lower lobe and possibly a small left pleural effusion. ABG today showed a pO2 of 73 pCO2 of 42 pH of 7.40. WBC count is 5.2 hemoglobin is 14.7 continues to have lymphopenia. Basic metabolic profile and profile are normal. Remains empirically on antibiotics. Patient received a dose of Lasix yesterday at 40 mg IV push, and another dose was ordered today. Objective - Vital Signs Vital signs: Vital Signs Temp 97.9 F 11/12/19 08:00 Pulse 114 H 11/12/19 12:02 Resp 26 H 11/12/19 08:00 BP 138/87 11/12/19 08:00 Pulse Ox 93 L 11/12/19 08:16 Intake & Output 11/11/19 11/12/19 11/12/19 18:59 06:59 18:59 Intake Total 1510 2881 150 Output Total 2800 2090 165 Balance -1290 791 -15 Weight 115.5 kg Intake: IV 820 961 150 Cefepime 2 gm In Sodium 100 Chloride 0.9% 100 ml @ 200 mls/hr IVPB Q12HR JOE Rx#:[id number] Levofloxacin 500Mg-D5w 100 Pmx 500 mg In Dextrose/ Water 1 100ml.bag @ 100 mls/hr IVPB Q24HR JOE Rx# :[id number] Sodium Chloride 0.9% 720 360 150 Vancomycin 1,750 mg In 501 Sodium Chloride 0.9% 500 ml 500 ml @ 167 mls/hr IVPB Q8H JOE Rx#: [id number] Intake, IV Titration 600 Amount Cefepime 2 gm In Sodium 100 Chloride 0.9% 100 ml @ 200 mls/hr IVPB Q12HR JOE Rx#:[id number] Vancomycin 1,750 mg In 500 Sodium Chloride 0.9% 500 ml 500 ml @ 167 mls/hr IVPB Q8H JOE Rx#: [id number] Oral 90 1920 Output: Urine 2800 2090 165 Other: Voiding Method Indwelling Catheter Indwelling Catheter Indwelling Catheter # Voids 1 1 - Exam Physical Exam: Revealed 69-year-old white male in no distress. On 4 L nasal cannula Head: Atraumatic normocephalic. Short obese neck is noted. HEENT:[Neck is supple.] [No neck masses.] [No thyromegaly.] [No JVD.] Chest: [Symmetrical chest expansion, crackles mostly at the left base, no rhonchi and no wheezes Cardiac Exam: [Normal S1 and S2, no S3 gallop, 2/6 systolic murmur thought the precordium. Abdomen: [Obese, Soft, nontender, no megaly, no rebound, no guarding, normal bowel sounds.] Extremities: [No clubbing, no edema, no cyanosis.] Neurological Exam: [No focal neurologic deficit.] Alert and oriented 3. Psychiatric: Normal mood, affect and normal mental status examination. Skin: No rashes. - Labs CBC & Chem 7: 11/12/19 04:27 11/12/19 04:27 Labs: Abnormal Lab Results - Last 24 Hours (Table) 11/11/19 11/12/19 11/12/19 Range/Units 21:03 04:27 04:27 Plt Count 139 L (150-450) k/uL Lymphocytes # 0.3 L (1.0-4.8) k/uL ABG pO2 (83-108) mmHg ABG HCO3 (21-25) mmol/L ABG Total CO2 (19-24) mmol/L Sodium 133 L (137-145) mmol/L Creatinine 0.56 L (0.66-1.25) mg/dL Glucose 195 H (74-99) mg/dL POC Glucose (mg/dL) 162 H (75-99) mg/dL Calcium 8.3 L (8.4-10.2) mg/dL 11/12/19 11/12/19 11/12/19 Range/Units 06:39 11:31 11:32 Plt Count (150-450) k/uL Lymphocytes # (1.0-4.8) k/uL ABG pO2 73 L (83-108) mmHg ABG HCO3 26 H (21-25) mmol/L ABG Total CO2 28 H (19-24) mmol/L Sodium (137-145) mmol/L Creatinine (0.66-1.25) mg/dL Glucose (74-99) mg/dL POC Glucose (mg/dL) 182 H 228 H (75-99) mg/dL Calcium (8.4-10.2) mg/dL Microbiology - Last 24 Hours (Table) 11/10/19 00:54 Blood Culture - Preliminary Blood No Growth after 48 hours 11/09/19 21:30 Blood Culture - Preliminary Blood No Growth after 48 hours 11/11/19 12:20 Gram Stain - Preliminary Sputum Assessment and Plan Assessment: Impression: Acute bibasilar pneumonia likely healthcare acquired pneumonia. Paroxysmal atrial fibrillation. History of underlying coronary artery disease. History of COPD with mild exacerbation. Degenerative joint disease. Obstructive sleep apnea syndrome, uses BiPAP at home. Recommendation: Continue antibiotics as ordered, however considering the patient had previous MRSA infection, will definitely empirically use vancomycin, and will add Levaquin considering his ALLERGY to penicillin and sulfa. Continue bronchodilators. Continue diuretics. Resume cardiac meds. Keep the patient in isolation until covid 19 results are available. Continue to use precautions/droplet isolation, Continue GI and DVT prophylaxis. Continue Eliquis. Transfer patient to a monitor bed on selective or possibly a medical surgical floor with telemetry. We will continue to follow. Time with Patient: Less than 30
[2019-11-12 16:44] LABS: Glucose,Whole Blood 251 mg/dL (75-99)
[2019-11-12] MEDS: ATORVASTATIN 80 MG TAB PO SCH (21:01)
[2019-11-12] MEDS: INSULIN DETEMIR (LEVEMIR) 100 UNIT/ML SYR SQ SCH (21:18)
[2019-11-12 21:26] LABS: Glucose,Whole Blood 270 mg/dL (75-99)
[2019-11-13] MEDS: methylPREDNISolone SOD SUCCI 125 MG/2 ML VIAL IV SCH ×3 (00:37→16:57)
[2019-11-13 05:46] LABS: African American GFR (CKD) >90 (>60 ml/min/1.73 sqM); Anion Gap 5 mmol/L; Blood Urea Nitrogen 24 mg/dL (9-20); Calcium 8.4 mg/dL (8.4-10.2); Carbon Dioxide 27 mmol/L (22-30); Chloride 101 mmol/L (98-107); Glucose 254 mg/dL (74-99); Non-African American GFR(CKD) >90 (>60 ml/min/1.73 sqM); Potassium 4.1 mmol/L (3.5-5.1); Sodium 133 mmol/L (137-145)
[2019-11-13 05:47] LABS: Basophils % (A) 0 %; Eosinophils % (A) 0 %; HCT 44.4 % (39.0-53.0); HGB 14.8 gm/dL (13.0-17.5); Lymphocytes # (A) 0.3 k/uL (1.0-4.8); Lymphocytes % (A) 4 %; MCH 32.1 pg (25.0-35.0); MCHC 33.4 g/dL (31.0-37.0); MCV 96.2 fL (80.0-100.0); Mean Platelet Volume 8.2; Monocytes # (A) 0.2 k/uL (0-1.0); Monocytes % (A) 3 %; Neutrophils # (A) 7.2 k/uL (1.3-7.7); Neutrophils % (A) 92 %; Platelet Count 135 k/uL (150-450); RBC 4.61 m/uL (4.30-5.90); RDW 13.2 % (11.5-15.5); WBC 7.9 k/uL (3.8-10.6)
[2019-11-13] MEDS: PANTOPRAZOLE 40 MG TABLET PO SCH (06:53)
[2019-11-13 07:02] LABS: Glucose,Whole Blood 272 mg/dL (75-99)
[2019-11-13] MEDS: BUDESONIDE 0.5 MG/2 ML NEBU INHALATION SCH ×2 (07:19→19:35)
[2019-11-13] MEDS: ALBUTEROL NEBULIZED 2.5 MG/3 ML INHALATION PRN ×3 (07:19→19:35)
[2019-11-13] MEDS: INSULIN ASPART (NovoLOG) 100 UNIT/ML VIAL SQ SCH ×4 (07:40→21:16)
--- NOTE | 2019-11-13 07:52 | XR ---
EXAMINATION TYPE: XR chest 1V portable DATE OF EXAM: 11/13/2019 CLINICAL HISTORY: Difficulty breathing progress study. TECHNIQUE: Single AP portable upright view of the chest is obtained. COMPARISON: Chest x-ray from one day earlier. CTA chest June 29, 2019. FINDINGS: There is persistent elevated left hemidiaphragm and left basilar opacity on background chr onic emphysematous change and mild cardiomegaly with atherosclerotic aorta. Right lung shows persiste nt medial basilar opacity. Left-sided volume loss remains present with mediastinal shift. IMPRESSION: Left-sided volume loss with more prominent small left pleural effusion and focal left bas ilar acute infiltrate and atelectasis. Persistent more patchy medial right basilar acute infiltrate a nd/or atelectasis. Background chronic emphysematous change and mild cardiomegaly. No significant bull ge from one day earlier.
[2019-11-13] MEDS: VANCOMYCIN 1,750 MG in SODIUM CHLORIDE 0.9% 500 ML 500 ML IVPB SCH ×2 (09:17)
[2019-11-13] MEDS: DIGOXIN 250 MCG TAB PO SCH (09:18)
[2019-11-13] MEDS: APIXABAN 5 MG TAB PO SCH ×2 (09:18→21:16)
[2019-11-13] MEDS: CEFEPIME 2 GM in SODIUM CHLORIDE 0.9% 100 ML IVPB SCH ×2 (09:18→21:15)
[2019-11-13] MEDS: DILTIAZEM ORAL 30 MG TAB PO SCH ×3 (09:18→21:16)
[2019-11-13] MEDS: ASPIRIN 81 MG PO SCH (09:18)
[2019-11-13] MEDS: INSULIN DETEMIR (LEVEMIR) 100 UNIT/ML SYR SQ SCH ×2 (09:19→21:17)
[2019-11-13] MEDS: METOPROLOL TARTRATE 25 MG TAB PO SCH ×2 (09:19→21:16)
[2019-11-13] MEDS ORDERED: FUROSEMIDE 10 MG/ML 4 ML VIAL IV STA (10:28)
[2019-11-13] MEDS: LEVOFLOXACIN 500MG-D5W PMX 500 MG in DEXTROSE/WATER 1 100ML.BAG IVPB SCH (10:36)
--- NOTE | 2019-11-13 11:34 | P.PN ---
Subjective Progress Note Date: 11/13/19 Principal diagnosis: Acute left lower lobe pneumonia This is a 69-year-old white male, known history of multiple medical problems including chronic atrial fibrillation, coronary artery disease, chronic obstructive pulmonary disease, obstructive sleep apnea syndrome, obesity, BMI of 38.7, previous NH, patient was recently admitted to [facility], and his admission was mostly related to cardiac arrhythmias in the form of atrial fibrillation with RVR. He was discharged yesterday from [facility], and he was supposed to follow-up eventually with another group of cardiology out of town. During his admission to the hospital, patient had symptoms of cough, and low-grade fever, but since discharge, his symptoms have worsened. Patient was brought in with worsening symptoms of shortness of breath, fever, and abnormal chest x-ray showing extensive left lower lobe pneumonia. Patient was admitted, placed empirically on antibiotics, and I was asked to see him on consultation. No recent travel history, no recent exposure to any patient with coronal virus infection. However considering his symptoms and his presentation, coronary virus testing was requested. Patient was placed in droplet isolation. Chest x-ray clearly showing left basilar airspace disease. CBC showed normal platelets on admission, normal WBC count, and 11% lymphocytes. Screening for influenza A was negative screening for influenza B was also negative. Reevaluated today on 11/11/19, patient remains in the ICU on droplet precautions, feeling better, breathing easier, continues to have intermittent episodes of cough which is productive with yellow phlegm. Chest x-ray is actually worse today. Patient developed a new right lower lobe infiltrate, and now he has bibasilar infiltrates. Echocardiogram showed good LV function. And no evidence of pulmonary hypertension. There is however severe concentric left ventricular hypertrophy. CBC is relatively normal. Basic metabolic profile is normal renal profile is normal. His BNP level on admission was elevated, hence would recommend a dose of Lasix to be given today. In the meantime the patient remains on bronchodilators, empiric antibiotics, and his coronal virus testing is pending. Patient remains on 6 L nasal cannula, continues to have O2 saturation in the low 90s. He had a T-max in the last 24 hours of 99.4 Reevaluated today on 11/12/19, patient remains in the ICU, on droplet precautions and isolation. Patient continues to feel better, breathing easier, he is on 4 L nasal cannula with O2 saturation above 93%. Chest x-ray showed slight improvement in the right lower lobe infiltrate, however he continues to have significant airspace disease involving the left lower lobe and possibly a small left pleural effusion. ABG today showed a pO2 of 73 pCO2 of 42 pH of 7.40. WBC count is 5.2 hemoglobin is 14.7 continues to have lymphopenia. Basic metabolic profile and profile are normal. Remains empirically on antibiotics. Patient received a dose of Lasix yesterday at 40 mg IV push, and another dose was ordered today. Reevaluated today on 11/13/19 patient is an overflow in the ICU, feeling better, less short of breath, remains on 5 L nasal cannula, chest x-ray continues to show left lower lobe consolidation, possibly a small left pleural effusion, and very minimal atelectasis or infiltrate in the right lower lobe. Clinically however the patient is feeling much better, breathing a lot easier. No fever in the last 2 days. T-max was 98.8. No hemodynamic instability. Respiratory rate is 20. Labs had a relatively normal CBC and platelets are 135,000 lymphocytes remain low electrolytes are normal renal profile is normal. Chest x-ray as noted above. Objective - Vital Signs Vital signs: Vital Signs Temp 98.8 F 11/13/19 02:00 Pulse 112 H 11/13/19 08:00 Resp 19 11/13/19 08:00 BP 112/70 11/13/19 06:00 Pulse Ox 95 11/13/19 06:00 Intake & Output 11/12/19 11/13/19 11/13/19 18:59 06:59 18:59 Intake Total 1250 580 Output Total 1465 650 Balance -215 -70 Intake: IV 1250 580 Cefepime 2 gm In Sodium 100 100 Chloride 0.9% 100 ml @ 200 mls/hr IVPB Q12HR JOE Rx#:[id number] Levofloxacin 500Mg-D5w 100 Pmx 500 mg In Dextrose/ Water 1 100ml.bag @ 100 mls/hr IVPB Q24HR JOE Rx# :[id number] Sodium Chloride 0.9% 550 480 Vancomycin 1,750 mg In 500 Sodium Chloride 0.9% 500 ml 500 ml @ 167 mls/hr IVPB Q8H JOE Rx#: [id number] Output: Urine 1465 650 Other: Voiding Method Indwelling Catheter Indwelling Catheter Indwelling Catheter # Voids 1 - Exam Physical Exam: Revealed 69-year-old white male in no distress. On 4 L nasal cannula Head: Atraumatic normocephalic. Short obese neck is noted. HEENT:[Neck is supple.] [No neck masses.] [No thyromegaly.] [No JVD.] Chest: [Symmetrical chest expansion, minimal crackles at the left base right side is clear. Cardiac Exam: [Normal S1 and S2, no S3 gallop, 2/6 systolic murmur thought the precordium. Abdomen: [Obese, Soft, nontender, no megaly, no rebound, no guarding, normal bowel sounds.] Extremities: [No clubbing, no edema, no cyanosis.] Neurological Exam: [No focal neurologic deficit.] Alert and oriented 3. Psychiatric: Normal mood, affect and normal mental status examination. Skin: No rashes. - Labs CBC & Chem 7: 11/13/19 05:28 11/13/19 05:28 Labs: Abnormal Lab Results - Last 24 Hours (Table) 11/12/19 11/12/19 11/12/19 Range/Units 11:31 11:32 16:43 Plt Count (150-450) k/uL Lymphocytes # (1.0-4.8) k/uL ABG pO2 73 L (83-108) mmHg ABG HCO3 26 H (21-25) mmol/L ABG Total CO2 28 H (19-24) mmol/L Sodium (137-145) mmol/L BUN (9-20) mg/dL Creatinine (0.66-1.25) mg/dL Glucose (74-99) mg/dL POC Glucose (mg/dL) 228 H 251 H (75-99) mg/dL 11/12/19 11/13/19 11/13/19 Range/Units 21:15 05:28 05:28 Plt Count 135 L (150-450) k/uL Lymphocytes # 0.3 L (1.0-4.8) k/uL ABG pO2 (83-108) mmHg ABG HCO3 (21-25) mmol/L ABG Total CO2 (19-24) mmol/L Sodium 133 L (137-145) mmol/L BUN 24 H (9-20) mg/dL Creatinine 0.64 L (0.66-1.25) mg/dL Glucose 254 H (74-99) mg/dL POC Glucose (mg/dL) 270 H (75-99) mg/dL 11/13/19 Range/Units 07:00 Plt Count (150-450) k/uL Lymphocytes # (1.0-4.8) k/uL ABG pO2 (83-108) mmHg ABG HCO3 (21-25) mmol/L ABG Total CO2 (19-24) mmol/L Sodium (137-145) mmol/L BUN (9-20) mg/dL Creatinine (0.66-1.25) mg/dL Glucose (74-99) mg/dL POC Glucose (mg/dL) 272 H (75-99) mg/dL Microbiology - Last 24 Hours (Table) 11/11/19 12:20 Gram Stain - Final Sputum Sputum Culture - Final 11/10/19 00:54 Blood Culture - Preliminary Blood No Growth after 72 hours 11/09/19 21:30 Blood Culture - Preliminary Blood No Growth after 72 hours Assessment and Plan Assessment: Impression: Acute bibasilar pneumonia likely healthcare acquired pneumonia. Paroxysmal atrial fibrillation. History of underlying coronary artery disease. History of COPD with mild exacerbation. Degenerative joint disease. Obstructive sleep apnea syndrome, uses BiPAP at home. Recommendation: Continue antibiotics as ordered, Continue bronchodilators. Continue diuretics. Given a dose of Lasix today 40 mg IV push 1. Continue cardiac meds. Keep the patient in isolation until covid 19 results are available. Continue to use precautions/droplet isolation, Continue GI and DVT prophylaxis. Continue Eliquis. Transfer patient out of the ICU once a bed is available. He will be on a regular medical floor with telemetry Time with Patient: Less than 30
[2019-11-13 12:04] LABS: Glucose,Whole Blood 279 mg/dL (75-99)
--- NOTE | 2019-11-13 14:34 | P.PN ---
Subjective Progress Note Date: 11/13/19 This is a 69-year-old male patient of Dr. Holland and Dr. Berumen with a previous medical history significant for paroxysmal atrial fibrillation, hypertension and hypertensive cardiovascular disease, hyperlipidemia, obesity with obstructive sleep apnea, CAD with ST elevation [place] post-PCI of the RCA back in August 2016, advanced COPD with FEV1 of 20% of predicted, chronic hypoxic respiratory failure, diabetes mellitus type 2, remote history of tobacco use. Patient has had previous admissions for acute COPD exacerbation as well as atrial flutter or atrial fibrillation with RVR. Patient most recently was hospitalized at [facility] at which time he was treated for atrial fibrillation with RVR, and pneumonia with lactic acidosis. Patient was treated with Rocephin and azithromycin. Patient was discharged home on -. Patient was instructed to hold eliquis as he was scheduled for heart catheterization on Saturday. 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 He then developed fever of 104 at home as well as shortness of breath and productive cough. Patient came into [facility] emergency center for evaluation. Temperature 102.3, heart rate 101 and jumped up to 177, blood pressure 125/70, pulse ox 99%.. He was found to be in A. fib with RVR, influenza and RSV negative. patient was tested for COVID19 which is pending. CBC, CMP unremarkable. Lactic acid 1.9, troponin 0.012, proBNP 1680. Chest x-ray reveals patchy atelectasis at the lung bases is new and increased compared to old exam. No heart failure seen. Repeat Chest x-ray reveals worsening left basilar airspace disease. Primary diagnostic consideration is for unifocal pneumonia. Patient has been admitted to the intensive care unit and consult in place with pulmonary medicine and cardiology consult will be added. threat monitoring analyst is now A. 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 Cardizem drip will be discontinued and home oral medications resumed. 11/10: Patient is seen in the intensive care unit. He is in isolation for possible Covid 19 infection. Case was reviewed with the nurse outside the patient's room. No hands-on physical exam was performed. Patient is currently on O2 at 6 L nasal cannula with pulse ox of 95%, recommended that patient be weaned down on oxygen level. Temperature max today is 100.3. Heart rate in the 90s and low 100s. Blood pressure 119/76. Repeat blood work reveals a platelet count 108, WBC 7.1, hemoglobin 14.8. Sodium 132, potassium 4.6, chloride 102, CO2 24, BUN 10 and creatinine 0.57. Blood culture 2 no growth at 24 hours. COVID-19 testing remains pending. 11/11: Patient remains in the intensive care unit and has now been downgraded to [facility] with telemetry. Patient's less lethargic today. He is oriented 3. He received Lasix yesterday IV and diuresed well. He has had good urine output. CBC shows normal white count and hemoglobin, platelet count 139. Sodium 133, potassium 4.7, chloride 100, CO2 28, BUN 16 and creatinine 0.56. Pro-calcitonin 0.09. Blood culture no growth at 48 hours 2 specimens. Sputum culture is in progress. Repeat chest x-ray reveals small left pleural effusion and left basilar airspace disease as well as stable right infrahilar airspace disease and may represent atelectasis or developing pneumonia. Incentive spirometry and ABGs ordered. Solu-Medrol 60mg will be decreased to every 8 hours. 11/12: Patient is still having shortness of breath currently at 5 L nasal cannula. We will add Lasix 40 mg IV twice daily. Vancomycin can be discontinued at this point. COVID-19 remains pending. Patient remains in isolation. Patient has been afebrile, heart rate 90s, blood pressure 112/70, pulse ox 95% on 5 L nasal cannula. Repeat lab work reveals platelet count 135. Sodium 133, potassium 4.1, BUN 24 and creatinine 0.64. Blood sugars running in the 200s. Serum culture reveals normal fe. Blood culture no growth 2 specimens. Objective - Vital Signs Vital signs: Vital Signs Temp 98.8 F 11/13/19 02:00 Pulse 112 H 11/13/19 08:00 Resp 19 11/13/19 08:00 BP 112/70 11/13/19 06:00 Pulse Ox 95 11/13/19 06:00 Intake & Output 11/12/19 11/13/19 11/13/19 18:59 06:59 18:59 Intake Total 1250 580 Output Total 1465 650 Balance -215 -70 Intake: IV 1250 580 Cefepime 2 gm In Sodium 100 100 Chloride 0.9% 100 ml @ 200 mls/hr IVPB Q12HR [facility] Rx#:[id number] Levofloxacin 500Mg-D5w 100 Pmx 500 mg In Dextrose/ Water 1 100ml.bag @ 100 mls/hr IVPB Q24HR [facility] Rx# :[id number] Sodium Chloride 0.9% 550 480 Vancomycin 1,750 mg In 500 Sodium Chloride 0.9% 500 ml 500 ml @ 167 mls/hr IVPB Q8H [facility] Rx#: [id number] Output: Urine 1465 650 Other: Voiding Method Indwelling Catheter Indwelling Catheter Indwelling Catheter # Voids 1 - Exam Review of Systems Constitutional: Reports chills, Reports fatigue, Reports fever, Reports lethargy, Reports malaise, Reports poor appetite, Reports weakness Ears, nose, mouth and throat: Denies dysphagia, Denies nasal congestion, Denies nasal discharge, Denies sore throat, Denies vertigo Cardiovascular: Reports dyspnea on exertion, Reports shortness of breath, Denies chest pain, Denies leg edema Respiratory: Reports cough with sputum, Reports dyspnea, Reports respiratory infections, Denies cough, Denies excessive sputum, Denies hemoptysis Gastrointestinal: Denies abdominal pain, Denies diarrhea, Denies nausea, Denies vomiting Genitourinary: Denies dysuria, Denies urinary frequency, Denies urinary retention Musculoskeletal: Reports muscle weakness, Denies frequent falls, Denies gait dysfunction, Denies myalgias Integumentary: Denies pruritus, Denies rash, Denies wounds Neurological: Denies change in mentation, Denies change in speech, Denies numbness, Denies weakness Psychiatric: Denies anxiety, Denies depression Endocrine: Reports fatigue, Denies weight change Physical examination- Gen: This is a 69-year-old man. He is resting in the ICU in chair and appears to be comfortable and in no acute distress. HEENT: Head is atraumatic, normocephalic. Pupils equal, round. Sclerae is anicteric. NECK: Supple. No JVD. No lymphadenopathy. No thyromegaly. LUNGS: Minimal basilar crackles. No intercostal retractions. HEART: Irregularly irregular. Systolic ejection murmur. ABDOMEN: Soft. Bowel sounds are present. No masses. No tenderness. EXTREMITIES: No pedal edema. No calf tenderness. NEUROLOGICAL: Patient is awake, alert and oriented x3. Cranial nerves 2 through 12 are grossly intact. - Labs CBC & Chem 7: 11/13/19 05:28 11/13/19 05:28 Labs: Abnormal Lab Results - Last 24 Hours (Table) 11/12/19 11/12/19 11/12/19 Range/Units 11:31 11:32 16:43 Plt Count (150-450) k/uL Lymphocytes # (1.0-4.8) k/uL ABG pO2 73 L (83-108) mmHg ABG HCO3 26 H (21-25) mmol/L ABG Total CO2 28 H (19-24) mmol/L Sodium (137-145) mmol/L BUN (9-20) mg/dL Creatinine (0.66-1.25) mg/dL Glucose (74-99) mg/dL POC Glucose (mg/dL) 228 H 251 H (75-99) mg/dL 11/12/19 11/13/19 11/13/19 Range/Units 21:15 05:28 05:28 Plt Count 135 L (150-450) k/uL Lymphocytes # 0.3 L (1.0-4.8) k/uL ABG pO2 (83-108) mmHg ABG HCO3 (21-25) mmol/L ABG Total CO2 (19-24) mmol/L Sodium 133 L (137-145) mmol/L BUN 24 H (9-20) mg/dL Creatinine 0.64 L (0.66-1.25) mg/dL Glucose 254 H (74-99) mg/dL POC Glucose (mg/dL) 270 H (75-99) mg/dL 11/13/19 Range/Units 07:00 Plt Count (150-450) k/uL Lymphocytes # (1.0-4.8) k/uL ABG pO2 (83-108) mmHg ABG HCO3 (21-25) mmol/L ABG Total CO2 (19-24) mmol/L Sodium (137-145) mmol/L BUN (9-20) mg/dL Creatinine (0.66-1.25) mg/dL Glucose (74-99) mg/dL POC Glucose (mg/dL) 272 H (75-99) mg/dL Microbiology - Last 24 Hours (Table) 11/11/19 12:20 Gram Stain - Final Sputum Sputum Culture - Final 11/10/19 00:54 Blood Culture - Preliminary Blood No Growth after 72 hours 11/09/19 21:30 Blood Culture - Preliminary Blood No Growth after 72 hours Assessment and Plan Plan: 1. Acute febrile illness most likely secondary to bibasilar pneumonia, gram- negative pneumonia. Patient is in isolation and tested for COVID-19, remains pending. Atrovent nebulizer treatment every 6 hours as needed, cefepime, Levaquin 500 mg daily. Vancomycin will be discontinued. Continue Solu-Medrol to 60 every [address] Lock and Dr. Ordonez appreciated. Transfer to [facility] floor with telemetry. 2. A. fib with RVR. Heart rate is currently controlled. Patient continued on eliquis 5 mg twice daily, digoxin 250 g daily, Cardizem oral 90 mg 3 times daily, Lopressor 25 mg twice daily. Cardiology consult. 3. Advanced COPD. Continue Atrovent, Pulmicort twice daily, consult with pulmonary medicine 4. Obstructive sleep apnea. 5. Known coronary artery disease post angioplasty and stent placement. Patient was scheduled to undergo catheterization at [facility].. 6. Hypertension hypertensive cardiovascular disease. 7. Abdominal aortic aneurysm monitored by vascular surgery. 8. GI prophylaxis. Protonix. 9. DVT prophylaxis. Eliquis. 10. Chronic hypoxic respiratory failure on home O2. Discharge plan: VNA. Impression and plan of care have been directed as dictated by the signing physician. Joy Baxter nurse practitioner acting as scribe for signing physician.
--- NOTE | 2019-11-13 15:44 | P.PN ---
Progress Note - Text Progress Note Date: 11/12/19 REASON FOR FOLLOWUP: Pneumonia. INTERVAL HISTORY: The patient is afebrile today. The patient still complaining of feeling weak and lethargic. No energy. Denies having any chest pain. Did have a cough but not bringing up any sputum. The patient denies nausea, No vomiting. No abdominal pain or diarrhea. PHYSICAL EXAMINATION: Blood pressure 122/69 with a pulse of 84, temperature 98.9. He is 94% on 4 L nasal cannula. General description is a middle-aged male lying in bed in no distress. RESPIRATORY SYSTEM: Unlabored breathing with decreased breath sounds at the base. No wheeze. HEART: S1, S2. Regular rate and rhythm. ABDOMEN: Soft. No tenderness. LABS: Hemoglobin is 14.8, white count 5.2. BUN of 10, creatinine 0.57. Blood cultures have been negative so far. Sputum cultures pending DIAGNOSTIC IMPRESSION AND PLAN: Patient admitted to hospital with increasing shortness of breath and a fever in this patient who did have a component of pneumonia with a concern for possible community- acquired versus nosocomial. Patient clinically responded to cefepime and vancomycin Which will be continued adjusting antibiotics further on the basis of culture report
--- NOTE | 2019-11-13 15:46 | P.PN ---
Progress Note - Text Progress Note Date: 11/13/19 REASON FOR FOLLOWUP: Pneumonia. INTERVAL HISTORY: The patient is remains to be afebrile. The patient is breathing more comfortably Denies having any chest pain minimal cough no nausea no vomiting now, the pain and no diarrhea. PHYSICAL EXAMINATION: Blood pressure 112/70 with a pulse of 84, temperature 98.9. He is 94% on 4 L nasal cannula. General description is a middle-aged male lying in bed in no distress. RESPIRATORY SYSTEM: Unlabored breathing with decreased breath sounds at the base. No wheeze. HEART: S1, S2. Regular rate and rhythm. ABDOMEN: Soft. No tenderness. LABS: Hemoglobin is 14.8, white count 7.9. BUN of 10, creatinine 0.64. Blood cultures have been negative so far. Sputum normal respiratory fe DIAGNOSTIC IMPRESSION AND PLAN: Patient admitted to hospital with increasing shortness of breath and a fever in this patient who did have a component of pneumonia with a concern for possible community- acquired and sputum has been usual respiratory fe patient is covered cefepime and Levaquin to continue finishing therapy with oral antibiotics on discharge
[2019-11-13 16:46] LABS: Glucose,Whole Blood 270 mg/dL (75-99)
[2019-11-13 21:07] LABS: Glucose,Whole Blood 256 mg/dL (75-99)
[2019-11-13] MEDS: ATORVASTATIN 80 MG TAB PO SCH (21:16)
[2019-11-13] MEDS: FUROSEMIDE 10 MG/ML 4 ML VIAL IV SCH (21:17)
[2019-11-14] MEDS: methylPREDNISolone SOD SUCCI 125 MG/2 ML VIAL IV SCH ×4 (00:25→23:10)
[2019-11-14 05:44] LABS: Basophils % (A) 0 %; Eosinophils % (A) 0 %; HCT 42.5 % (39.0-53.0); HGB 14.7 gm/dL (13.0-17.5); Lymphocytes # (A) 0.3 k/uL (1.0-4.8); Lymphocytes % (A) 3 %; MCH 32.8 pg (25.0-35.0); MCHC 34.6 g/dL (31.0-37.0); MCV 94.8 fL (80.0-100.0); Mean Platelet Volume 8.5; Monocytes # (A) 0.3 k/uL (0-1.0); Monocytes % (A) 3 %; Neutrophils # (A) 8.5 k/uL (1.3-7.7); Neutrophils % (A) 93 %; Platelet Count 150 k/uL (150-450); RBC 4.48 m/uL (4.30-5.90); RDW 12.9 % (11.5-15.5); WBC 9.1 k/uL (3.8-10.6)
[2019-11-14 05:49] LABS: African American GFR (CKD) >90 (>60 ml/min/1.73 sqM); Anion Gap 4 mmol/L; Blood Urea Nitrogen 26 mg/dL (9-20); Calcium 8.5 mg/dL (8.4-10.2); Carbon Dioxide 30 mmol/L (22-30); Chloride 102 mmol/L (98-107); Glucose 271 mg/dL (74-99); Non-African American GFR(CKD) >90 (>60 ml/min/1.73 sqM); Potassium 3.6 mmol/L (3.5-5.1); Sodium 136 mmol/L (137-145)
[2019-11-14] MEDS ORDERED: Potassium Replacement Protocol 1 EACH MISC MISCELLANE PRN (05:56)
--- NOTE | 2019-11-14 06:09 | XR ---
EXAMINATION TYPE: XR chest 1V DATE OF EXAM: 11/14/2019 HISTORY: COPD. REFERENCE: Previous study dated 11/13/2019. FINDINGS: There is continuing left-sided airspace disease which may have improved slightly from previ ous. The heart is enlarged. The lungs are overinflated. IMPRESSION: 1. COPD. 2. LEFT BASILAR AIRSPACE DISEASE, LIKELY REPRESENTING PNEUMONIA. 3. SMALL LEFT EFFUSION.
[2019-11-14 06:42] LABS: Glucose,Whole Blood 242 mg/dL (75-99)
[2019-11-14] MEDS ORDERED: POTASSIUM CHLORIDE ER 20 MEQ TAB.ER PO SCH (07:00)
[2019-11-14] MEDS: PANTOPRAZOLE 40 MG TABLET PO SCH (07:03)
[2019-11-14] MEDS: INSULIN ASPART (NovoLOG) 100 UNIT/ML VIAL SQ SCH ×6 (07:04→20:36)
[2019-11-14] MEDS ORDERED: INSULIN ASPART (NovoLOG) 100 UNIT/ML VIAL SQ SCH (07:30)
[2019-11-14] MEDS: CEFEPIME 2 GM in SODIUM CHLORIDE 0.9% 100 ML IVPB SCH ×2 (08:59→20:37)
[2019-11-14] MEDS: LEVOFLOXACIN 500 MG TAB PO SCH (08:59)
[2019-11-14] MEDS: INSULIN DETEMIR (LEVEMIR) 100 UNIT/ML SYR SQ SCH ×2 (08:59→20:37)
[2019-11-14] MEDS: APIXABAN 5 MG TAB PO SCH ×2 (08:59→20:37)
[2019-11-14] MEDS: ASPIRIN 81 MG PO SCH (09:00)
[2019-11-14] MEDS: METOPROLOL TARTRATE 25 MG TAB PO SCH ×2 (09:00→20:36)
[2019-11-14] MEDS: FUROSEMIDE 10 MG/ML 4 ML VIAL IV SCH ×2 (09:00→20:37)
[2019-11-14] MEDS: DIGOXIN 250 MCG TAB PO SCH (09:00)
[2019-11-14] MEDS: DILTIAZEM ORAL 30 MG TAB PO SCH ×3 (09:00→20:36)
[2019-11-14] MEDS: BUDESONIDE 0.5 MG/2 ML NEBU INHALATION SCH ×2 (09:06→19:00)
[2019-11-14] MEDS: ALBUTEROL NEBULIZED 2.5 MG/3 ML INHALATION PRN ×3 (09:06→19:00)
[2019-11-14] MEDS ORDERED: VANCOMYCIN TROUGH DUE 1 EACH MISC MISCELLANE ONE (09:30)
--- NOTE | 2019-11-14 09:53 | P.PN ---
Subjective Progress Note Date: 11/14/19 Principal diagnosis: Acute fever, bibasilar pneumonia, COPD exacerbation, A. fib with RVR, obstructive sleep apnea and CAD. This is a 69-year-old male patient of Dr. Holland and Dr. Berumen with a previous medical history significant for paroxysmal atrial fibrillation, hypertension and hypertensive cardiovascular disease, hyperlipidemia, obesity with obstructive sleep apnea, CAD with ST elevation [place] post-PCI of the RCA back in August 2016, advanced COPD with FEV1 of 20% of predicted, chronic hypoxic respiratory failure, diabetes mellitus type 2, remote history of tobacco use. Patient has had previous admissions for acute COPD exacerbation as well as atria l flutter or atrial fibrillation with RVR. Patient most recently was hospitalized at [facility] at which time he was treated for atrial fibrillation with RVR, and pneumonia with lactic acidosis. Patient was treated with Rocephin and azithromycin. Patient was discharged home on -. Patient was instructed to hold eliquis as he was scheduled for heart catheterization on Saturday. 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 He then developed fever of 104 at home as well as shortness of breath and productive cough. Patient came into [facility] emergency center for evaluation. Temperature 102.3, heart rate 101 and jumped up to 177, blood pressure 125/70, pulse ox 99%.. He was found to be in A. fib with RVR, influenza and RSV negative. patient was tested for COVID19 which is pending. CBC, CMP u nremarkable. Lactic acid 1.9, troponin 0.012, proBNP 1680. Chest x-ray reveals patchy atelectasis at the lung bases is new and increased compared to old exam. No heart failure seen. Repeat Chest x-ray reveals worsening left basilar airspace disease. Primary diagnostic consideration is for unifocal pneumonia. Patient has been admitted to the intensive care unit and consult in place with pulmonary medicine and cardiology consult will be added. night monitor is now A. 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 Cardizem drip will be discontinued and home oral medications resumed. 11/10: Patient is seen in the intensive care unit. He is in isolation for possible Covid 19 infection. Case was reviewed with the nurse outside the patient's room. No hands-on physical exam was performed. Patient is currently on O2 at 6 L nasal cannula with pulse ox of 95%, recommended that patient be weaned down on oxygen level. Temperature max today is 100.3. Heart rate in the 90s and low 100s. Blood pressure 119/76. Repeat blood work reveals a platelet count 108, WBC 7.1, hemoglobin 14.8. Sodium 132, potassium 4.6, chloride 102, CO2 24, BUN 10 and creatinine 0.57. Blood culture 2 no growth at 24 hours. COVID-19 testing remains pending. 11/11: Patient remains in the intensive care unit and has now been downgraded to [facility] with telemetry. Patient's less lethargic today. He is oriented 3. He received Lasix yesterday IV and diuresed well. He has had good urine output. CBC shows normal white count and hemoglobin, platelet count 139. Sodium 133, potassium 4.7, chloride 100, CO2 28, BUN 16 and creatinine 0.56. Pro-calcitonin 0.09. Blood culture no growth at 48 hours 2 specimens. Sputum culture is in progress. Repeat chest x-ray reveals small left pleural effusion and left basilar airspace disease as well as stable right infrahilar airspace disease and may represent atelectasis or developing pneumonia. Incentive spirometry and ABGs ordered. Solu-Medrol 60mg will be decreased to every 8 hours. 11/12: Patient is still having shortness of breath currently at 5 L nasal cannula. We will add Lasix 40 mg IV twice daily. Vancomycin can be discontinued at this point. COVID-19 remains pending. Patient remains in isolation. Patient has been afebrile, heart rate 90s, blood pressure 112/70, pulse ox 95% on 5 L nasal cannula. Repeat lab work reveals platelet count 135. Sodium 133, potassium 4.1, BUN 24 and creatinine 0.64. Blood sugars running in the 200s. Serum culture reveals normal fe. Blood culture no growth 2 specimens. 11/13: Patient is having less symptom with shortness of breath no chest pain at this point. Patient is responding well to current IV antibiotic with much lower temperature. Blood sugar was running high last night his Levemir was increased to 20 units twice a day and Humalog up to 5 units before meals meals plus sliding scale a. Patient COVID-19 remain pending at this point patient remain on isolation. Otherwise feeling well, still seen pulmonary with FEV1 of 20% only with a current hypoxia patient is doing much better with less oxygen concentration. 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 Objective - Vital Signs Vital signs: Vital Signs Temp 97.6 F 11/13/19 22:41 Pulse 90 11/14/19 09:27 Resp 19 11/13/19 22:41 BP 118/60 11/13/19 22:41 Pulse Ox 93 L 11/13/19 22:41 Intake & Output 11/13/19 11/14/19 11/14/19 18:59 06:59 18:59 Intake Total 740 580 Output Total 600 1260 Balance 140 -680 Weight 113 kg Intake: IV 740 580 Cefepime 2 gm In Sodium 100 Chloride 0.9% 100 ml @ 200 mls/hr IVPB Q12HR [facility] Rx#:[id number] Sodium Chloride 0.9% 240 480 Vancomycin 1,750 mg In 500 Sodium Chloride 0.9% 500 ml 500 ml @ 167 mls/hr IVPB Q8H [facility] Rx#: [id number] Output: Urine 600 1260 Other: Voiding Method Indwelling Catheter Indwelling Catheter - Exam - Exam Review of Systems Constitutional: Reports chills, Reports fatigue, Reports fever, Reports lethargy, Reports malaise, Reports poor appetite, Reports weakness Ears, nose, mouth and throat: Denies dysphagia, Denies nasal congestion, Denies nasal discharge, Denies sore throat, Denies vertigo Cardiovascular: Reports dyspnea on exertion, Reports shortness of breath, Denies chest pain, Denies leg edema Respiratory: Reports cough with sputum, Reports dyspnea, Reports respiratory infections, Denies cough, Denies excessive sputum, Denies hemoptysis Gastrointestinal: Denies abdominal pain, Denies diarrhea, Denies nausea, Denies vomiting Genitourinary: Denies dysuria, Denies urinary frequency, Denies urinary r etention Musculoskeletal: Reports muscle weakness, Denies frequent falls, Denies gait dysfunction, Denies myalgias Integumentary: Denies pruritus, Denies rash, Denies wounds Neurological: Denies change in mentation, Denies change in speech, Denies numbness, Denies weakness Psychiatric: Denies anxiety, Denies depression Endocrine: Reports fatigue, Denies weight change Physical examination- Gen: This is a 69-year-old man. He is resting in the ICU in chair and appears to be comfortable and in no acute distress. HEENT: Head is atraumatic, normocephalic. Pupils equal, round. Sclerae is anicteric. NECK: Supple. No JVD. No lymphadenopathy. No thyromegaly. LUNGS: Minimal basilar crackles. No intercostal retractions. HEART: Irregularly irregular. Systolic ejection murmur. ABDOMEN: Soft. Bowel sounds are present. No masses. No tenderness. EXTREMITIES: No pedal edema. No calf tenderness. NEUROLOGICAL: Patient is awake, alert and oriented x3. Cranial nerves 2 through 12 are grossly intact. - Labs CBC & Chem 7: 11/14/19 05:11 11/14/19 05:11 Labs: Abnormal Lab Results - Last 24 Hours (Table) 11/13/19 11/13/19 11/13/19 Range/Units 12:03 16:44 21:05 Neutrophils # (1.3-7.7) k/uL Lymphocytes # (1.0-4.8) k/uL Sodium (137-145) mmol/L BUN (9-20) mg/dL Glucose (74-99) mg/dL POC Glucose (mg/dL) 279 H 270 H 256 H (75-99) mg/dL 11/14/19 11/14/19 11/14/19 Range/Units 05:11 05:11 06:40 Neutrophils # 8.5 H (1.3-7.7) k/uL Lymphocytes # 0.3 L (1.0-4.8) k/uL Sodium 136 L (137-145) mmol/L BUN 26 H (9-20) mg/dL Glucose 271 H (74-99) mg/dL POC Glucose (mg/dL) 242 H (75-99) mg/dL Microbiology - Last 24 Hours (Table) 11/10/19 00:54 Blood Culture - Preliminary Blood No Growth after 96 hours 11/09/19 21:30 Blood Culture - Preliminary Blood No Growth after 96 hours 11/11/19 12:20 Gram Stain - Final Sputum Sputum Culture - Final Assessment and Plan Plan: 1 sepsis: Secondary to gram-negative pneumonia as by basilar pneumonia continue current antibiotics with cefepime and Levaquin. 2 pending COVID-19: Continue current precaution the auto possibility still very low hopefully culture will be reported in the next 24 hours. 3 by basilar pneumonia: Most likely gram-negative, has been on current treatment still seen pulmonary and infectious disease. 4 COPD with mild exacerbation: Remain on Pulmicort, DuoNeb and steroid continued see pulmonary. 5 known coronary artery disease post angioplasty and stent placement with recurrent symptoms patient is scheduled for elective heart catheter and possible angioplasty at [facility] which will be scheduled. 6 hypertension: On metoprolol and diltiazem. 7 A. fib with RVR: Remain on Eliquis along with metoprolol and diltiazem. 8 hyperlipidemia: Still on atorvastatin 40 mg daily. 9 Type 2 diabetes: Not well controlled currently specially been on Solu-Medrol patient Levemir was increased to 20 units twice a day and Humalog up to 8 units before meals meals plus sliding scale. 10 GI prophylaxis: Remain on protonix. 11 DVT prophylaxis: Still on anticoagulation. CODE STATUS: Full code. Possible discharge in 48 hours.
[2019-11-14 11:43] LABS: Glucose,Whole Blood 247 mg/dL (75-99)
--- NOTE | 2019-11-14 11:59 | P.PN ---
Subjective Progress Note Date: 11/14/19 Principal diagnosis: Acute left lower lobe pneumonia This is a 69-year-old white male, known history of multiple medical problems including chronic atrial fibrillation, coronary artery disease, chronic obstructive pulmonary disease, obstructive sleep apnea syndrome, obesity, BMI of 38.7, previous CT, patient was recently admitted to [facility], and his admission was mostly related to cardiac arrhythmias in the form of atrial fibrillation with RVR. He was discharged yesterday from [facility], and he was supposed to follow-up eventually with another group of cardiology out of town. During his admission to the hospital, patient had symptoms of cough, and low-grade fever, but since discharge, his symptoms have worsened. Patient was brought in with worsening symptoms of shortness of breath, fever, and abnormal chest x-ray showing extensive left lower lobe pneumonia. Patient was admitted, placed empirically on antibiotics, and I was asked to see him on consultation. No recent travel history, no recent exposure to any patient with coronal virus infection. However considering his symptoms and his presentation, coronary virus testing was requested. Patient was placed in droplet isolation. Chest x-ray clearly showing left basilar airspace disease. CBC showed normal platelets on admission, normal WBC count, and 11% lymphocytes. Screening for influenza A was negative screening for influenza B was also negative. Reevaluated today on 11/11/19, patient remains in the ICU on droplet precautions, feeling better, breathing easier, continues to have intermittent episodes of cough which is productive with yellow phlegm. Chest x-ray is actually worse today. Patient developed a new right lower lobe infiltrate, and now he has bibasilar infiltrates. Echocardiogram showed good LV function. And no evidence of pulmonary hypertension. There is however severe concentric left ventricular hypertrophy. CBC is relatively normal. Basic metabolic profile is normal renal profile is normal. His BNP level on admission was elevated, hence would recommend a dose of Lasix to be given today. In the meantime the patient remains on bronchodilators, empiric antibiotics, and his coronal virus testing is pending. Patient remains on 6 L nasal cannula, continues to have O2 saturation in the low 90s. He had a T-max in the last 24 hours of 99.4 Reevaluated today on 11/12/19, patient remains in the ICU, on droplet precautions and isolation. Patient continues to feel better, breathing easier, he is on 4 L nasal cannula with O2 saturation above 93%. Chest x-ray showed slight improvement in the right lower lobe infiltrate, however he continues to have significant airspace disease involving the left lower lobe and possibly a small left pleural effusion. ABG today showed a pO2 of 73 pCO2 of 42 pH of 7.40. WBC count is 5.2 hemoglobin is 14.7 continues to have lymphopenia. Basic metabolic profile and profile are normal. Remains empirically on antibiotics. Patient received a dose of Lasix yesterday at 40 mg IV push, and another dose was ordered today. Reevaluated today on 11/13/19 patient is an overflow in the ICU, feeling better, less short of breath, remains on 5 L nasal cannula, chest x-ray continues to show left lower lobe consolidation, possibly a small left pleural effusion, and very minimal atelectasis or infiltrate in the right lower lobe. Clinically however the patient is feeling much better, breathing a lot easier. No fever in the last 2 days. T-max was 98.8. No hemodynamic instability. Respiratory rate is 20. Labs had a relatively normal CBC and platelets are 135,000 lymphocytes remain low electrolytes are normal renal profile is normal. Chest x-ray as noted above. Reevaluated today on 11/14/19, patient continues to do well, progressing nicely, remains on IV antibiotics, remains on bronchodilators, coronal virus testing results are pending. 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 Chest x-ray showed mostly COPD and left basilar airspace disease/pneumonia with a small tiny left pleural effusion not large enough to consider thoracentesis patient had a T-max of 98.8 yesterday, today his temp is 98.0. Objective - Vital Signs Vital signs: Vital Signs Temp 98 F 11/14/19 07:00 Pulse 90 11/14/19 09:27 Resp 24 11/14/19 07:00 BP 131/74 11/14/19 07:00 Pulse Ox 92 L 11/14/19 07:00 Intake & Output 11/13/19 11/14/19 11/14/19 18:59 06:59 18:59 Intake Total 740 580 Output Total 600 1260 Balance 140 -680 Weight 113 kg Intake: IV 740 580 Cefepime 2 gm In Sodium 100 Chloride 0.9% 100 ml @ 200 mls/hr IVPB Q12HR [facility] Rx#:[id number] Sodium Chloride 0.9% 240 480 Vancomycin 1,750 mg In 500 Sodium Chloride 0.9% 500 ml 500 ml @ 167 mls/hr IVPB Q8H [facility] Rx#: [id number] Output: Urine 600 1260 Other: Voiding Method Indwelling Catheter Indwelling Catheter - Exam Physical Exam: Revealed 69-year-old white male in no distress. Head: Atraumatic normocephalic. Short obese neck is noted. HEENT:[Neck is supple.] [No neck masses.] [No thyromegaly.] [No JVD.] Chest: [Symmetrical chest expansion, diminished breath sounds and crackles at the left base Cardiac Exam: [Normal S1 and S2, no S3 gallop, 2/6 systolic murmur thought the precordium. Abdomen: [Obese, Soft, nontender, no megaly, no rebound, no guarding, normal bowel sounds.] Extremities: [No clubbing, no edema, no cyanosis.] Neurological Exam: [No focal neurologic deficit.] Alert and oriented 3. Psychiatric: Normal mood, affect and normal mental status examination. Skin: No rashes. - Labs CBC & Chem 7: 11/14/19 05:11 11/14/19 05:11 Labs: Abnormal Lab Results - Last 24 Hours (Table) 11/13/19 11/13/19 11/13/19 Range/Units 12:03 16:44 21:05 Neutrophils # (1.3-7.7) k/uL Lymphocytes # (1.0-4.8) k/uL Sodium (137-145) mmol/L BUN (9-20) mg/dL Glucose (74-99) mg/dL POC Glucose (mg/dL) 279 H 270 H 256 H (75-99) mg/dL 11/14/19 11/14/19 11/14/19 Range/Units 05:11 05:11 06:40 Neutrophils # 8.5 H (1.3-7.7) k/uL Lymphocytes # 0.3 L (1.0-4.8) k/uL Sodium 136 L (137-145) mmol/L BUN 26 H (9-20) mg/dL Glucose 271 H (74-99) mg/dL POC Glucose (mg/dL) 242 H (75-99) mg/dL 11/14/19 Range/Units 11:42 Neutrophils # (1.3-7.7) k/uL Lymphocytes # (1.0-4.8) k/uL Sodium (137-145) mmol/L BUN (9-20) mg/dL Glucose (74-99) mg/dL POC Glucose (mg/dL) 247 H (75-99) mg/dL Microbiology - Last 24 Hours (Table) 11/10/19 00:54 Blood Culture - Preliminary Blood No Growth after 96 hours 11/09/19 21:30 Blood Culture - Preliminary Blood No Growth after 96 hours 11/11/19 12:20 Gram Stain - Final Sputum Sputum Culture - Final Assessment and Plan Assessment: Impression: Acute bibasilar pneumonia likely healthcare acquired pneumonia. Paroxysmal atrial fibrillation. History of underlying coronary artery disease. Patient was supposed to have cardiac catheterization at [facility], however now it is postponed and will be rescheduled History of COPD with mild exacerbation. Degenerative joint disease. Obstructive sleep apnea syndrome, uses BiPAP at home. Recommendation: Continue antibiotics as ordered, Continue bronchodilators. Continue diuretics. Continue cardiac meds. Keep the patient in isolation until covid 19 results are available. Continue to use precautions/droplet isolation, Continue GI and DVT prophylaxis. Continue Eliquis. We'll continue to follow consider discharge planning home if his henry virus test comes back negative Time with Patient: Less than 30
[2019-11-14 16:40] LABS: Glucose,Whole Blood 230 mg/dL (75-99)
--- NOTE | 2019-11-14 18:27 | PN ---
PROGRESS NOTE DATE OF SERVICE: 11/14/2019 REASON FOR FOLLOWUP: Pneumonia. INTERVAL HISTORY: The patient is currently afebrile, has been breathing comfortably. Complaining of feeling sleepy. Denies any chest pain or shortness of breath. Minimal cough. No nausea. No vomiting, no abdominal pain. No diarrhea. PHYSICAL EXAMINATION: Blood pressure 112/64 with a pulse of 71, temperature is 97.7. He is 92% on 5 L nasal cannula. General description is an elderly male lying in bed in no distress. Respiratory system: Unlabored breathing. Decreased breath sounds at bases. No wheeze. Heart S1, S2. Regular rate and rhythm. Abdomen soft, no tenderness. LABORATORY DATA: Hemoglobin is 14.7, white count 9.1, BUN of 26, creatinine 0.66. DIAGNOSTIC IMPRESSION AND PLAN: Patient admitted to the hospital with shortness of breath. This patient did have evidence of left lower lobe pneumonia, possible community-acquired. Sputum has been negative for any resistant pathogen. Patient covered with Cefepime, that will continue and monitor clinical course closely. MMODL / IJN: [id number] /
[2019-11-14 20:20] LABS: Glucose,Whole Blood 314 mg/dL (75-99)
[2019-11-14] MEDS: ATORVASTATIN 80 MG TAB PO SCH (20:36)
[2019-11-15 05:01] LABS: Basophils % (A) 0 %; Eosinophils % (A) 0 %; HCT 41.9 % (39.0-53.0); HGB 14.2 gm/dL (13.0-17.5); Lymphocytes # (A) 0.3 k/uL (1.0-4.8); Lymphocytes % (A) 3 %; MCH 32.3 pg (25.0-35.0); MCHC 33.9 g/dL (31.0-37.0); MCV 95.5 fL (80.0-100.0); Mean Platelet Volume 8.6; Monocytes # (A) 0.3 k/uL (0-1.0); Monocytes % (A) 4 %; Neutrophils # (A) 7.2 k/uL (1.3-7.7); Neutrophils % (A) 92 %; Platelet Count 150 k/uL (150-450); RBC 4.39 m/uL (4.30-5.90); RDW 12.7 % (11.5-15.5); WBC 7.8 k/uL (3.8-10.6)
[2019-11-15 05:15] LABS: ALT 36 U/L (4-49); AST 46 U/L (17-59); African American GFR (CKD) >90 (>60 ml/min/1.73 sqM); Albumin 2.9 g/dL (3.5-5.0); Alkaline Phosphatase 49 U/L (38-126); Anion Gap 3 mmol/L; Blood Urea Nitrogen 24 mg/dL (9-20); Calcium 8.2 mg/dL (8.4-10.2); Carbon Dioxide 33 mmol/L (22-30); Chloride 98 mmol/L (98-107); Glucose 264 mg/dL (74-99); Non-African American GFR(CKD) >90 (>60 ml/min/1.73 sqM); Potassium 3.5 mmol/L (3.5-5.1); Sodium 134 mmol/L (137-145); Total Bilirubin 1.2 mg/dL (0.2-1.3)
--- NOTE | 2019-11-15 06:44 | XR ---
EXAMINATION TYPE: XR chest 1V DATE OF EXAM: 11/15/2019 HISTORY: PNA. REFERENCE: Previous study dated 11/14/2019. FINDINGS: Left basilar airspace disease persists. I cannot exclude a small left effusion. Heart size is obscured. The right lung is clear. IMPRESSION: NO SIGNIFICANT INTERVAL CHANGE IN THE APPEARANCE OF THE CHEST.
[2019-11-15 06:45] LABS: Glucose,Whole Blood 250 mg/dL (75-99)
[2019-11-15] MEDS: PANTOPRAZOLE 40 MG TABLET PO SCH (06:54)
[2019-11-15] MEDS: INSULIN ASPART (NovoLOG) 100 UNIT/ML VIAL SQ SCH ×7 (06:54→20:30)
[2019-11-15] MEDS: ALBUTEROL NEBULIZED 2.5 MG/3 ML INHALATION PRN ×2 (09:01→13:33)
[2019-11-15] MEDS: BUDESONIDE 0.5 MG/2 ML NEBU INHALATION SCH ×2 (09:01→21:00)
[2019-11-15] MEDS: POTASSIUM CHLORIDE ER 20 MEQ TAB.ER PO SCH ×2 (09:07→11:02)
[2019-11-15] MEDS: methylPREDNISolone SOD SUCCI 125 MG/2 ML VIAL IV SCH ×3 (09:07→23:40)
[2019-11-15] MEDS: DILTIAZEM ORAL 30 MG TAB PO SCH ×3 (09:08→20:30)
[2019-11-15] MEDS: APIXABAN 5 MG TAB PO SCH ×2 (09:08→20:30)
[2019-11-15] MEDS: ASPIRIN 81 MG PO SCH (09:08)
[2019-11-15] MEDS: CEFEPIME 2 GM in SODIUM CHLORIDE 0.9% 100 ML IVPB SCH ×2 (09:08→20:30)
[2019-11-15] MEDS: FUROSEMIDE 10 MG/ML 4 ML VIAL IV SCH ×2 (09:08→20:30)
[2019-11-15] MEDS: DIGOXIN 250 MCG TAB PO SCH (09:08)
[2019-11-15] MEDS: INSULIN DETEMIR (LEVEMIR) 100 UNIT/ML SYR SQ SCH ×2 (09:09→20:30)
[2019-11-15] MEDS: LEVOFLOXACIN 500 MG TAB PO SCH (09:09)
[2019-11-15] MEDS: METOPROLOL TARTRATE 25 MG TAB PO SCH ×2 (09:09→20:29)
--- NOTE | 2019-11-15 11:10 | P.PN ---
Subjective Progress Note Date: 11/15/19 Principal diagnosis: Acute fever, bibasilar pneumonia, COPD exacerbation, A. fib with RVR, obstructive sleep apnea and CAD. Pending COVID-19. This is a 69-year-old male patient of Dr. Holland and Dr. Berumen with a previous medical history significant for paroxysmal atrial fibrillation, hypertension and hypertensive cardiovascular disease, hyperlipidemia, obesity with obstructive sleep apnea, CAD with ST elevation [place] post-PCI of the RCA back in August 2016, advanced COPD with FEV1 of 20% of predicted, chronic hypoxic respiratory failure, diabetes mellitus type 2, remote history of tobacco use. Patient has had previous admissions for acute COPD exacerbation as well as atrial flutter or atrial fibrillation with RVR. Patient most recently was hospitalized at [facility] at which time he was treated for atrial fibrillation with RVR, and pneumonia with lactic acidosis. Patient was treated with Rocephin and azithromycin. Patient was discharged home on Z-Casey. Patient was instructed to hold eliquis as he was scheduled for heart catheteri zation on Saturday. Patient went to his aesthetician in [place] and was to be scheduled for heart catheterization today. He then developed fever of 104 at home as well as shortness of breath and productive cough. Patient came into [facility] emergency center for evaluation. Temperature 102.3, heart rate 101 and jumped up to 177, blood pressure 125/70, pulse ox 99%.. He was found to be in A. fib with RVR, influenza and RSV negative. patient was tested for COVID19 which is pending. CBC, CMP unremarkable. Lactic acid 1.9, troponin 0.012, proBNP 1680. Chest x-ray reveals patchy atelectasis at the lung bases is new and increased compared to old exam. No heart failure seen. Repeat Chest x-ray reveals worsening left basilar airspace disease. Primary diagnostic consideration is for unifocal pneumonia. Patient has been admitted to the intensive care unit and consult in place with pulmonary medicine and cardiology consult will be added. front desk monitor is now A. 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 Cardizem drip will be discontinued and home oral medications resumed. 11/10: Patient is seen in the intensive care unit. He is in isolation for possi ble Covid 19 infection. Case was reviewed with the nurse outside the patient's room. No hands-on physical exam was performed. Patient is currently on O2 at 6 L nasal cannula with pulse ox of 95%, recommended that patient be weaned down on oxygen level. Temperature max today is 100.3. Heart rate in the 90s and low 100s. Blood pressure 119/76. Repeat blood work reveals a platelet count 108, W BC 7.1, hemoglobin 14.8. Sodium 132, potassium 4.6, chloride 102, CO2 24, BUN 10 and creatinine 0.57. Blood culture 2 no growth at 24 hours. COVID-19 testing remains pending. 11/11: Patient remains in the intensive care unit and has now been downgraded to [facility] with telemetry. Patient's less lethargic today. He is oriented 3. He received Lasix yesterday IV and diuresed well. He has had good urine output. CBC shows normal white count and hemoglobin, platelet count 139. Sodium 133, po tassium 4.7, chloride 100, CO2 28, BUN 16 and creatinine 0.56. Pro-calcitonin 0.09. Blood culture no growth at 48 hours 2 specimens. Sputum culture is in progress. Repeat chest x-ray reveals small left pleural effusion and left basilar airspace disease as well as stable right infrahilar airspace disease and may represent atelectasis or developing pneumonia. Incentive spirometry and ABGs ordered. Solu-Medrol 60mg will be decreased to every 8 hours. 11/12: Patient is still having shortness of breath currently at 5 L nasal cannula. We will add Lasix 40 mg IV twice daily. Vancomycin can be discontinued at this point. COVID-19 remains pending. Patient remains in isolation. Patient has been afebrile, heart rate 90s, blood pressure 112/70, pulse ox 95% on 5 L nasal cannula. Repeat lab work reveals platelet count 135. Sodium 133, potassium 4.1, BUN 24 and creatinine 0.64. Blood sugars running in the 200s. Serum culture reveals normal fe. Blood culture no growth 2 specimens. 11/13: Patient is having less symptom with shortness of breath no chest pain at this point. Patient is responding well to current IV antibiotic with much lower temperature. Blood sugar was running high last night his Levemir was increased to 20 units twice a day and Humalog up to 5 units before meals meals plus sliding scale a. Patient COVID-19 remain pending at this point patient remain on isolation. Otherwise feeling well, still seen pulmonary with FEV1 of 20% only with a current hypoxia patient is doing much better with less oxygen concentration. Also patient original plan for elective heart catheter on Saturday with his aesthetician at [facility] is delay ~febrile illness and infection is completely clear probably will be rescheduled for at least 2-4 weeks from his discharge date. 11/14: Patient is doing well today continued to be more tired and fatigued his hypoxia has been much better his testing still negative for this point, his blood sugar still mildly elevated and titrate his insulin today to keep his random blood sugar below 150. Patient is not having any chest pain or shortness of breath is bilateral pneumonia as well treated and managed currently we'll continue to wean him down on oxygen continue diuretics and switch to oral patient expected discharge probably in 48 hours. Objective - Vital Signs Vital signs: Vital Signs Temp 97.5 F L 11/15/19 07:00 Pulse 82 11/15/19 09:17 Resp 22 11/15/19 07:00 BP 116/60 11/15/19 07:00 Pulse Ox 94 L 11/14/19 20:25 Intake & Output 11/14/19 11/15/19 11/15/19 18:59 06:59 18:59 Intake Total 480 Output Total 1600 2300 Balance -1600 -1820 Weight 112.7 kg Intake: Oral 480 Output: Urine 1600 2300 Other: Voiding Method Indwelling Catheter Indwelling Catheter Indwelling Catheter - Exam - Exam Review of Systems Constitutional: Reports chills, Reports fatigue, Reports fever, Reports lethargy, Reports malaise, Reports poor appetite, Reports weakness Ears, nose, mouth and throat: Denies dysphagia, Denies nasal congestion, Denies nasal discharge, Denies sore throat, Denies vertigo Cardiovascular: Reports dyspnea on exertion, Reports shortness of breath, Denies chest pain, Denies leg edema Respiratory: Reports cough with sputum, Reports dyspnea, Reports respiratory infections, Denies cough, Denies excessive sputum, Denies hemoptysis Gastrointestinal: Denies abdominal pain, Denies diarrhea, Denies nausea, Denies vomiting Genitourinary: Denies dysuria, Denies urinary frequency, Denies urinary retention Musculoskeletal: Reports muscle weakness, Denies frequent falls, Denies gait dysfunction, Denies myalgias Integumentary: Denies pruritus, Denies rash, Denies wounds Neurological: Denies change in mentation, Denies change in speech, Denies numbness, Denies weakness Psychiatric: Denies anxiety, Denies depression Endocrine: Reports fatigue, Denies weight change Physical examination- Gen: This is a 69-year-old man. He is resting in the ICU in chair and appears to be comfortable and in no acute distress. HEENT: Head is atraumatic, normocephalic. Pupils equal, round. Sclerae is anicteric. NECK: Supple. No JVD. No lymphadenopathy. No thyromegaly. LUNGS: Minimal basilar crackles. No intercostal retractions. HEART: Irregularly irregular. Systolic ejection murmur. ABDOMEN: Soft. Bowel sounds are present. No masses. No tenderness. EXTREMITIES: No pedal edema. No calf tenderness. NEUROLOGICAL: Patient is awake, alert and oriented x3. Cranial nerves 2 through 12 are grossly intact. - Labs CBC & Chem 7: 11/15/19 04:31 11/15/19 04:31 Labs: Abnormal Lab Results - Last 24 Hours (Table) 11/14/19 11/14/19 11/14/19 Range/Units 11:42 16:38 20:17 Lymphocytes # (1.0-4.8) k/uL Sodium (137-145) mmol/L Carbon Dioxide (22-30) mmol/L BUN (9-20) mg/dL Glucose (74-99) mg/dL POC Glucose (mg/dL) 247 H 230 H 314 H (75-99) mg/dL Calcium (8.4-10.2) mg/dL Total Protein (6.3-8.2) g/dL Albumin (3.5-5.0) g/dL 11/15/19 11/15/19 11/15/19 Range/Units 04:31 04:31 06:44 Lymphocytes # 0.3 L (1.0-4.8) k/uL Sodium 134 L (137-145) mmol/L Carbon Dioxide 33 H (22-30) mmol/L BUN 24 H (9-20) mg/dL Glucose 264 H (74-99) mg/dL POC Glucose (mg/dL) 250 H (75-99) mg/dL Calcium 8.2 L (8.4-10.2) mg/dL Total Protein 5.0 L (6.3-8.2) g/dL Albumin 2.9 L (3.5-5.0) g/dL Microbiology - Last 24 Hours (Table) 11/10/19 00:54 Blood Culture - Preliminary Blood No Growth after 120 hours 11/09/19 21:30 Blood Culture - Preliminary Blood No Growth after 120 hours Assessment and Plan Plan: 1 sepsis: Secondary to gram-negative pneumonia as by basilar pneumonia continue current antibiotics with cefepime and Levaquin. 2 pending COVID-19: Continue current precaution the auto possibility still very low hopefully culture will be reported in the day. 3 by basilar pneumonia: Most likely gram-negative, has been on current treatment still seen pulmonary and infectious disease. 4 COPD with mild exacerbation: Remain on Pulmicort, DuoNeb and steroid continued see pulmonary. 5 known coronary artery disease post angioplasty and stent placement with recurrent symptoms patient is scheduled for elective heart catheter and possible angioplasty at [facility] which will be scheduled. 6 hypertension: On metoprolol and diltiazem. 7 A. fib with RVR: Remain on Eliquis along with metoprolol and diltiazem. 8 hyperlipidemia: Still on atorvastatin 40 mg daily. 9 Type 2 diabetes: Not well controlled currently specially been on Solu-Medrol patient Levemir was increased to 20 units twice a day and Humalog up to 8 units before meals meals plus sliding scale. 10 GI prophylaxis: Remain on protonix. 11 DVT prophylaxis: Still on anticoagulation. CODE STATUS: Full code. Possible discharge in 48 hours.
[2019-11-15 11:48] LABS: Glucose,Whole Blood 268 mg/dL (75-99)
--- NOTE | 2019-11-15 12:01 | US ---
EXAMINATION TYPE: US chest DATE OF EXAM: 11/15/2019 COMPARISON: CXR CLINICAL HISTORY: Markings for thoracentesis by pulmonary staff. Abnormal CXR TECHNIQUE: Targeted ultrasound of the posterior lower left hemithorax EXAM MEASUREMENTS: Left side NOT marked for possible thoracentesis outside the dept, no sizeable fluid pocket Pulmonologists are able to review the images in the patient?s EMR. IMPRESSIONS: MINIMAL LEFT-SIDED EFFUSION.
--- NOTE | 2019-11-15 14:03 | P.PN ---
Subjective Progress Note Date: 11/15/19 Principal diagnosis: Acute left lower lobe pneumonia This is a 69-year-old white male, known history of multiple medical problems including chronic atrial fibrillation, coronary artery disease, chronic obstructive pulmonary disease, obstructive sleep apnea syndrome, obesity, BMI of 38.7, previous [place], patient was recently admitted to [facility], and his admission was mostly related to cardiac arrhythmias in the form of atrial fibrillation with RVR. He was discharged yesterday from [facility], and he was supposed to follow-up eventually with another group of cardiology out of town. During his admission to the hospital, patient had symptoms of cough, and low-grade fever, but since discharge, his symptoms have worsened. Patient was brought in with worsening symptoms of shortness of breath, fever, and abnormal chest x-ray showing extensive left lower lobe pneumonia. Patient was admitted, placed empirically on antibiotics, and I was asked to see him on consultation. No recent travel history, no recent exposure to any patient with coronal virus infection. However considering his symptoms and his presentation, coronary virus testing was requested. Patient was placed in droplet isolation. Chest x-ray clearly showing left basilar airspace disease. CBC showed normal platelets on admission, normal WBC count, and 11% lymphocytes. Screening for influenza A was negative screening for influenza B was also negative. Reevaluated today on 11/11/19, patient remains in the ICU on droplet precautions, feeling better, breathing easier, continues to have intermittent episodes of cough which is productive with yellow phlegm. Chest x-ray is actually worse today. Patient developed a new right lower lobe infiltrate, and now he has bibasilar infiltrates. Echocardiogram showed good LV function. And no evidence of pulmonary hypertension. There is however severe concentric left ventricular hypertrophy. CBC is relatively normal. Basic metabolic profile is normal renal profile is normal. His BNP level on admission was elevated, hence would recommend a dose of Lasix to be given today. In the meantime the patient remains on bronchodilators, empiric antibiotics, and his coronal virus testing is pending. Patient remains on 6 L nasal cannula, continues to have O2 saturation in the low 90s. He had a T-max in the last 24 hours of 99.4 Reevaluated today on 11/12/19, patient remains in the ICU, on droplet precautions and isolation. Patient continues to feel better, breathing easier, he is on 4 L nasal cannula with O2 saturation above 93%. Chest x-ray showed slight improvement in the right lower lobe infiltrate, however he continues to have significant airspace disease involving the left lower lobe and possibly a small left pleural effusion. ABG today showed a pO2 of 73 pCO2 of 42 pH of 7.40. WBC count is 5.2 hemoglobin is 14.7 continues to have lymphopenia. Basic metabolic profile and profile are normal. Remains empirically on antibiotics. Patient received a dose of Lasix yesterday at 40 mg IV push, and another dose was ordered today. Reevaluated today on 11/13/19 patient is an overflow in the ICU, feeling better, less short of breath, remains on 5 L nasal cannula, chest x-ray continues to show left lower lobe consolidation, possibly a small left pleural effusion, and very minimal atelectasis or infiltrate in the right lower lobe. Clinically however the patient is feeling much better, breathing a lot easier. No fever in the last 2 days. T-max was 98.8. No hemodynamic instability. Respiratory rate is 20. Labs had a relatively normal CBC and platelets are 135,000 lymphocytes remain low electrolytes are normal renal profile is normal. Chest x-ray as noted above. Reevaluated today on 11/14/19, patient continues to do well, progressing nicely, remains on IV antibiotics, remains on bronchodilators, coronal virus testing results are pending. 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 Chest x-ray showed mostly COPD and left basilar airspace disease/pneumonia with a small tiny left pleural effusion not large enough to consider thoracentesis patient had a T-max of 98.8 yesterday, today his temp is 98.0. Patient was reevaluated today on 11/15/19, patient is feeling better, but looks tired and fatigued. Ultrasound of the chest showed minimal left pleural effusion, hence no need to perform thoracentesis on this patient. Chest x-ray continues to show left lower lobe infiltrate. His convid 19 testing is pending. Patient remains on droplet isolation/precaution. Hemodynamically the patient is stable, not requiring any pressors. Labs including CBC and basic metabolic profile are normal. Renal profile is normal. Objective - Vital Signs Vital signs: Vital Signs Temp 97.5 F L 11/15/19 07:00 Pulse 71 11/15/19 13:48 Resp 22 11/15/19 07:00 BP 116/60 11/15/19 07:00 Pulse Ox 94 L 11/14/19 20:25 Intake & Output 11/14/19 11/15/19 11/15/19 18:59 06:59 18:59 Intake Total 480 140 Output Total 1600 2300 1800 Balance -1600 -1820 -1660 Weight 112.7 kg Intake: IV 140 Cefepime 2 gm In Sodium 100 Chloride 0.9% 100 ml @ 200 mls/hr IVPB Q12HR [facility] Rx#:[id number] Sodium Chloride 0.9% 40 Oral 480 Output: Urine 1600 2300 1800 Other: Voiding Method Indwelling Catheter Indwelling Catheter Indwelling Catheter - Exam Physical Exam: Revealed 69-year-old white male in no distress. Head: Atraumatic normocephalic. Short obese neck is noted. HEENT:[Neck is supple.] [No neck masses.] [No thyromegaly.] [No JVD.] Chest: [Symmetrical chest expansion, diminished breath sounds and crackles at the left base Cardiac Exam: [Normal S1 and S2, no S3 gallop, 2/6 systolic murmur thought the precordium. Abdomen: [Obese, Soft, nontender, no megaly, no rebound, no guarding, normal bowel sounds.] Extremities: [No clubbing, no edema, no cyanosis.] Neurological Exam: [No focal neurologic deficit.] Alert and oriented 3. Psychiatric: Normal mood, affect and normal mental status examination. Skin: No rashes. - Labs CBC & Chem 7: 11/15/19 04:31 11/15/19 04:31 Labs: Abnormal Lab Results - Last 24 Hours (Table) 11/14/19 11/14/19 11/15/19 Range/Units 16:38 20:17 04:31 Lymphocytes # (1.0-4.8) k/uL Sodium 134 L (137-145) mmol/L Carbon Dioxide 33 H (22-30) mmol/L BUN 24 H (9-20) mg/dL Glucose 264 H (74-99) mg/dL POC Glucose (mg/dL) 230 H 314 H (75-99) mg/dL Calcium 8.2 L (8.4-10.2) mg/dL Total Protein 5.0 L (6.3-8.2) g/dL Albumin 2.9 L (3.5-5.0) g/dL 11/15/19 11/15/19 11/15/19 Range/Units 04:31 06:44 11:46 Lymphocytes # 0.3 L (1.0-4.8) k/uL Sodium (137-145) mmol/L Carbon Dioxide (22-30) mmol/L BUN (9-20) mg/dL Glucose (74-99) mg/dL POC Glucose (mg/dL) 250 H 268 H (75-99) mg/dL Calcium (8.4-10.2) mg/dL Total Protein (6.3-8.2) g/dL Albumin (3.5-5.0) g/dL Microbiology - Last 24 Hours (Table) 11/10/19 00:54 Blood Culture - Preliminary Blood No Growth after 120 hours 11/09/19 21:30 Blood Culture - Preliminary Blood No Growth after 120 hours Assessment and Plan Assessment: Impression: Acute bibasilar pneumonia likely healthcare acquired pneumonia. Paroxysmal atrial fibrillation. History of underlying coronary artery disease. Patient was supposed to have cardiac catheterization at [facility], however now it is postponed and will be rescheduled History of COPD with mild exacerbation. Degenerative joint disease. Obstructive sleep apnea syndrome, uses BiPAP at home. Recommendation: Continue antibiotics Continue bronchodilators. Continue diuretics. Continue cardiac meds. Keep the patient in isolation until covid 19 results are available. Continue to use precautions/droplet isolation, Continue GI and DVT prophylaxis. Continue Eliquis. Ultrasound of the chest was reviewed, no significant effusion noted to consider thoracentesis. We'll continue to follow Time with Patient: Less than 30
[2019-11-15] MEDS ORDERED: IPRATROPIUM-ALBUTEROL 3 ML NEB INHALATION PRN (16:08)
[2019-11-15 16:43] LABS: Glucose,Whole Blood 321 mg/dL (75-99)
--- NOTE | 2019-11-15 19:47 | PN ---
PROGRESS NOTE DATE OF SERVICE: 11/15/2019 REASON FOR FOLLOWUP: Pneumonia. INTERVAL HISTORY: The patient is currently afebrile. The patient is breathing comfortably. . No vomiting or any diarrhea has been reported by the nursing staff. PHYSICAL EXAMINATION: Blood pressure 102/64 with a pulse of 73, temperature 98.0. He is 92% on 4 L nasal cannula. General description is an elderly male lying in bed in no distress. Respiratory system: Unlabored breathing, decreased breath sounds at the bases. No wheeze. Heart S1, S2. Regular rate and rhythm. ABDOMEN: Soft. No tenderness. LABS: Hemoglobin 14.8, white count 7.8, creatinine 0.67. Sputum culture has been normal respiratory fe. IMPRESSION/PLAN: The patient admitted to the hospital with shortness of breath and cough, pneumonia with a fever with concern for possible gram-negative pneumonia. However, sputum has been usual respiratory fe, possible community acquired pneumonia. Once Covid-19 is negative, he will be able to finish therapy with oral Ceftin. Continue supportive care. MMODL / IJN: [id number] / MTDD
[2019-11-15 20:23] LABS: Glucose,Whole Blood 254 mg/dL (75-99)
[2019-11-15] MEDS: ATORVASTATIN 80 MG TAB PO SCH (20:29)
[2019-11-15] MEDS: IPRATROPIUM-ALBUTEROL 3 ML NEB INHALATION SCH (20:59)
[2019-11-16 06:15] LABS: African American GFR (CKD) >90 (>60 ml/min/1.73 sqM); Non-African American GFR(CKD) >90 (>60 ml/min/1.73 sqM)
[2019-11-16 06:52] LABS: Glucose,Whole Blood 245 mg/dL (75-99)
[2019-11-16] MEDS: INSULIN ASPART (NovoLOG) 100 UNIT/ML VIAL SQ SCH ×7 (06:58→21:39)
[2019-11-16] MEDS: PANTOPRAZOLE 40 MG TABLET PO SCH (06:58)
[2019-11-16] MEDS: ALBUTEROL INHALER 60 PUFF/8 GM INHALER (MHU) INHALATION SCH ×4 (10:11→19:16)
[2019-11-16] MEDS: SYMBICORT 160-4.5 MCG INHALER INHALATION SCH ×2 (10:12→19:15)
[2019-11-16] MEDS: CEFEPIME 2 GM in SODIUM CHLORIDE 0.9% 100 ML IVPB SCH ×2 (10:17→21:24)
[2019-11-16] MEDS: DIGOXIN 250 MCG TAB PO SCH (10:17)
[2019-11-16] MEDS: INSULIN DETEMIR (LEVEMIR) 100 UNIT/ML SYR SQ SCH ×2 (10:18→21:39)
[2019-11-16] MEDS: ASPIRIN 81 MG PO SCH (10:18)
[2019-11-16] MEDS: APIXABAN 5 MG TAB PO SCH ×2 (10:18→21:24)
[2019-11-16] MEDS: FUROSEMIDE 10 MG/ML 4 ML VIAL IV SCH ×2 (10:18→21:24)
[2019-11-16] MEDS: DILTIAZEM ORAL 30 MG TAB PO SCH ×3 (10:18→21:24)
[2019-11-16] MEDS: LEVOFLOXACIN 500 MG TAB PO SCH (10:18)
[2019-11-16] MEDS: METOPROLOL TARTRATE 25 MG TAB PO SCH ×2 (10:19→21:24)
--- NOTE | 2019-11-16 11:05 | PN ---
PROGRESS NOTE PULMONARY/CRITICAL CARE PROGRESS NOTE: DATE OF SERVICE: November 16, 2019 This is a 69-year-old male who was admitted on the 09 of November with a diagnosis of COPD exacerbation with atrial fibrillation and RVR. He apparently was recently at [facility] for cardiac arrhythmia in the form of atrial fibrillation/RVR. Currently, he is resting comfortably in room 259 in the ICU. He was tested for coronavirus and it did come back positive. We were just alerted of that today. He is doing well though. He feels well. He is recovering nicely. He is on 5 L nasal cannula. He is getting 0.9 IV at 10 mL an hour. His chest x-ray apparently showed some left lower lobe infiltrate. Other than that, the patient is doing reasonably well. His microbiologic studies have all been negative. I told the patient that we could send him out of the unit today. Yesterday, he was seen and he was also doing well. Yesterday, his COVID-19 testing was pending. PHYSICAL EXAMINATION: VITAL SIGNS: Current vital signs are reviewed. His temperature is 97.8. Heart rate 66 and irregular. Respiratory rate 20 and nonlabored. Saturations are 92% to 94% on 5 L. His blood pressure is 123/62. Mean is 82. GENERAL APPEARANCE: He is in no distress. There is no audible wheezing, use of accessory muscles or conversational dyspnea. HEENT: Examination is grossly unremarkable. Mucous membranes are moist. No oral lesions. NECK: Supple. Full range of motion. No adenopathy or thyromegaly. Neck veins are flat. CARDIOVASCULAR: Examination reveals irregular rhythm and rate. Heart rate mid 60s. S1, S2 normal. No murmur. Heart sounds are distant. LUNGS: Reveal a few scattered mild rhonchi. No wheezes or crackles. Breath sounds equal bilaterally. ABDOMEN: Soft. Bowel sounds are heard. EXTREMITIES: Are intact. There is no edema. SKIN: Without rash. NEUROLOGIC: Examination is brief but nonfocal. LAB DATA: Lab data is reviewed. White count 7.8, hemoglobin 14.2, hematocrit 41.9, platelet count normal. These are all labs from yesterday. The rest of the labs from yesterday looked pretty good. Chest ultrasound on the shows a minimal left-sided effusion, not worth doing thoracentesis on. It was not even marked. Most recent chest x-ray from the shows minimal left basilar airspace disease. Microbiologic studies are negative save for the report of COVID-19 testing being positive. MEDICATIONS: Current medications are reviewed. He is on albuterol inhaler, Eliquis, aspirin, Lipitor, Symbicort, Maxipime, digoxin, diltiazem, Lasix, insulin, Levaquin, Solu- Medrol, metoprolol, nitroglycerin, Protonix, and potassium replacement. I will add tiotropium which is Spiriva. ASSESSMENT: 1. Chronic obstructive pulmonary disease exacerbation complicated by left lower lobe pneumonia. 2. Paroxysmal atrial fibrillation with RVR. 3. Coronary artery disease. 4. History of degenerative joint disease. 5. Sleep apnea syndrome. 6. COVID-19 positive. PLAN: Currently, the patient is doing well. The patient could be discharged out of the unit down to the floor. The patient's respiratory status seems to be relatively stable. I will add some Spiriva to the regimen. He is currently on albuterol inhaler as well as Symbicort. He is also on Levaquin and some IV Solu-Medrol. Prognosis is guarded. We will continue to follow. I believe that if he was to get worse, he would have gotten worse already. MMODL / IJN: [id number] /
[2019-11-16 12:01] LABS: Glucose,Whole Blood 235 mg/dL (75-99)
--- NOTE | 2019-11-16 13:20 | P.PN ---
Subjective Progress Note Date: 11/16/19 This is a 69-year-old male patient of Dr. Holland and Dr. Berumen with a previous medical history significant for paroxysmal atrial fibrillation, hypertension and hypertensive cardiovascular disease, hyperlipidemia, obesity with obstructive sleep apnea, CAD with ST elevation [facility] post-PCI of the RCA back in August 2016, advanced COPD with FEV1 of 20% of predicted, chronic hypoxic respiratory failure, diabetes mellitus type 2, remote history of tobacco use. Patient has had previous admissions for acute COPD exacerbation as well as atrial flutter or atrial fibrillation with RVR. Patient most recently was hospitalized at [facility] at which time he was treated for atrial fibrillation with RVR, and pneumonia with lactic acidosis. Patient was treated with Rocephin and azithromycin. Patient was discharged home on -. Patient was instructed to hold eliquis as he was scheduled for heart catheterization on Saturday. 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 He then developed fever of 104 at home as well as shortness of breath and productive cough. Patient came into [facility] emergency center for evaluation. Temperature 102.3, heart rate 101 and jumped up to 177, blood pressure 125/70, pulse ox 99%.. He was found to be in A. fib with RVR, influenza and RSV negative. patient was tested for COVID19 which is pending. CBC, CMP unremarkable. Lactic acid 1.9, troponin 0.012, proBNP 1680. Chest x-ray reveals patchy atelectasis at the lung bases is new and increased compared to old exam. No heart failure seen. Repeat Chest x-ray reveals worsening left basilar airspace disease. Primary diagnostic consideration is for unifocal pneumonia. Patient has been admitted to the intensive care unit and consult in place with pulmonary medicine and cardiology consult will be added. security monitor is now A. 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 Cardizem drip will be discontinued and home oral medications resumed. 11/10: Patient is seen in the intensive care unit. He is in isolation for possible Covid 19 infection. Case was reviewed with the nurse outside the patient's room. No hands-on physical exam was performed. Patient is currently on O2 at 6 L nasal cannula with pulse ox of 95%, recommended that patient be weaned down on oxygen level. Temperature max today is 100.3. Heart rate in the 90s and low 100s. Blood pressure 119/76. Repeat blood work reveals a platelet count 108, WBC 7.1, hemoglobin 14.8. Sodium 132, potassium 4.6, chloride 102, CO2 24, BUN 10 and creatinine 0.57. Blood culture 2 no growth at 24 hours. COVID-19 testing remains pending. 11/11: Patient remains in the intensive care unit and has now been downgraded to [facility] with telemetry. Patient's less lethargic today. He is oriented 3. He received Lasix yesterday IV and diuresed well. He has had good urine output. CBC shows normal white count and hemoglobin, platelet count 139. Sodium 133, potassium 4.7, chloride 100, CO2 28, BUN 16 and creatinine 0.56. Pro-calcitonin 0.09. Blood culture no growth at 48 hours 2 specimens. Sputum culture is in progress. Repeat chest x-ray reveals small left pleural effusion and left basilar airspace disease as well as stable right infrahilar airspace disease and may represent atelectasis or developing pneumonia. Incentive spirometry and ABGs ordered. Solu-Medrol 60mg will be decreased to every 8 hours. 11/12: Patient is still having shortness of breath currently at 5 L nasal cannula. We will add Lasix 40 mg IV twice daily. Vancomycin can be discontinued at this point. COVID-19 remains pending. Patient remains in isolation. Patient has been afebrile, heart rate 90s, blood pressure 112/70, pulse ox 95% on 5 L nasal cannula. Repeat lab work reveals platelet count 135. Sodium 133, potassium 4.1, BUN 24 and creatinine 0.64. Blood sugars running in the 200s. Serum culture reveals normal fe. Blood culture no growth 2 specimens. 11/13: Patient is having less symptom with shortness of breath no chest pain at this point. Patient is responding well to current IV antibiotic with much lower temperature. Blood sugar was running high last night his Levemir was increased to 20 units twice a day and Humalog up to 5 units before meals meals plus sliding scale a. Patient COVID-19 remain pending at this point patient remain on isolation. Otherwise feeling well, still seen pulmonary with FEV1 of 20% only with a current hypoxia patient is doing much better with less oxygen concentration. Also patient original plan for elective heart catheter on Saturday with his office cleaner at [facility] is delay ~febrile illness and infection is completely clear probably will be rescheduled for at least 2-4 weeks from his discharge date. 11/14: Patient is doing well today continued to be more tired and fatigued his hypoxia has been much better his testing still negative for this point, his bloo d sugar still mildly elevated and titrate his insulin today to keep his random blood sugar below 150. Patient is not having any chest pain or shortness of breath is bilateral pneumonia as well treated and managed currently we'll continue to wean him down on oxygen continue diuretics and switch to oral patient expected discharge probably in 48 hours. 11/15: The patient remains in intensive care unit but is a MedSurg overflow. COVID-19 is positive. Solu-Medrol will be discontinued. Blood sugars have been quite high but expect this to improve now that he is off Solu-Medrol. Patient is currently on antibiotics in the form of cefepime and Levaquin. Ultrasound of the chest revealed minimal left-sided effusion. Patient has been afebrile, heart rate 72, blood pressure 126/72, pulse ox 90% on 5 L nasal cannula. Objective - Vital Signs Vital signs: Vital Signs Temp 97.8 F 11/15/19 20:00 Pulse 72 11/16/19 07:00 Resp 24 11/16/19 07:00 BP 126/72 11/16/19 07:00 Pulse Ox 90 L 11/16/19 07:00 Intake & Output 11/15/19 11/16/19 11/16/19 18:59 06:59 18:59 Intake Total 140 480 Output Total 1800 1200 Balance -1660 -171 Weight 110.2 kg Intake: IV 140 Cefepime 2 gm In Sodium 100 Chloride 0.9% 100 ml @ 200 mls/hr IVPB Q12HR [facility] Rx#:[id number] Sodium Chloride 0.9% 40 Blood Product 480 Output: Urine 1800 1200 Other: Voiding Method Indwelling Catheter Indwelling Catheter - Exam Review of Systems Constitutional: Reports chills, Reports fatigue, Reports fever, Reports lethargy, Reports malaise, Reports poor appetite, Reports weakness Ears, nose, mouth and throat: Denies dysphagia, Denies nasal congestion, Denies nasal discharge, Denies sore throat, Denies vertigo Cardiovascular: Reports dyspnea on exertion, Reports shortness of breath, Denies chest pain, Denies leg edema Respiratory: Reports cough with sputum, Reports dyspnea, Reports respiratory infections, Denies cough, Denies excessive sputum, Denies hemoptysis Gastrointestinal: Denies abdominal pain, Denies diarrhea, Denies nausea, Denies vomiting Genitourinary: Denies dysuria, Denies urinary frequency, Denies urinary retention Musculoskeletal: Reports muscle weakness, Denies frequent falls, Denies gait dysfunction, Denies myalgias Integumentary: Denies pruritus, Denies rash, Denies wounds Neurological: Denies change in mentation, Denies change in speech, Denies numbn ess, Denies weakness Psychiatric: Denies anxiety, Denies depression Endocrine: Reports fatigue, Denies weight change Physical examination- Gen: This is a 69-year-old man. He is resting in the ICU bed and appears to be comfortable and in no acute distress. HEENT: Head is atraumatic, normocephalic. Pupils equal, round. Sclerae is anicteric. NECK: Supple. No JVD. No lymphadenopathy. No thyromegaly. LUNGS: Minimal basilar crackles. No intercostal retractions. HEART: Irregularly irregular. Systolic ejection murmur. ABDOMEN: Soft. Bowel sounds are present. No masses. No tenderness. EXTREMITIES: No pedal edema. No calf tenderness. NEUROLOGICAL: Patient is awake, alert and oriented x3. Cranial nerves 2 through 12 are grossly intact. - Labs CBC & Chem 7: 11/15/19 04:31 11/16/19 04:54 Labs: Abnormal Lab Results - Last 24 Hours (Table) 11/09/19 11/15/19 11/15/19 Range/Units 21:30 11:46 16:41 POC Glucose (mg/dL) 268 H 321 H (75-99) mg/dL Coronavirus (PCR) DETECTED H 11/15/19 11/16/19 Range/Units 20:22 06:52 POC Glucose (mg/dL) 254 H 245 H (75-99) mg/dL Coronavirus (PCR) Microbiology - Last 24 Hours (Table) 11/10/19 00:54 Blood Culture - Final Blood No Growth after 144 hours 11/09/19 21:30 Blood Culture - Final Blood No Growth after 144 hours Assessment and Plan Plan: 1. Acute febrile illness most likely secondary to bibasilar pneumonia, gram- negative pneumonia and COVID-19. Atrovent nebulizer treatment every 6 hours as needed, Symbicort twice daily, cefepime, Levaquin 500 mg daily. Discontinue Solu-Medrol to 60 every 8 hours, IV Lasix 40 mg every 12 hours. Started on prednisone 30 mg daily. Consults with Dr. Lock and Dr. Ordonez appreciated. Transfer to [facility] with telemetry. 2. A. fib with RVR. Heart rate is currently controlled. Patient continued on eliquis 5 mg twice daily, digoxin 250 g daily, Cardizem oral 90 mg 3 times daily, Lopressor 25 mg twice daily. Cardiology consult. 3. Advanced COPD. Continue Atrovent, Pulmicort twice daily, consult with pulmonary medicine 4. Obstructive sleep apnea. 5. Known coronary artery disease post angioplasty and stent placement. Patient was scheduled to undergo catheterization at [facility]. 6. Hypertension hypertensive cardiovascular disease. 7. Abdominal aortic aneurysm monitored by vascular surgery. 8. GI prophylaxis. Protonix. 9. DVT prophylaxis. Eliquis. 10. Chronic hypoxic respiratory failure on home O2. 11. Hyperglycemia secondary to steroids. Continue Levemir 20 units twice daily, NovoLog 8 units with meals and scale. Solu-Medrol discontinued and patient now on prednisone daily. Discharge plan: VNA. Impression and plan of care have been directed as dictated by the signing physician. Joy Baxter nurse practitioner acting as scribe for signing physician.
[2019-11-16] MEDS ORDERED: methylPREDNISolone SOD SUCCI 40 MG/ML 1 ML VIAL IV SCH (16:00)
[2019-11-16] MEDS: BUDESONIDE 0.5 MG/2 ML NEBU INHALATION SCH (16:14)
[2019-11-16] MEDS: IPRATROPIUM-ALBUTEROL 3 ML NEB INHALATION SCH (16:14)
[2019-11-16] MEDS: HYDROXYCHLOROQUINE ORAL SUSP 200 MG/8 ML ORAL.SYRG PO SCH ×2 (16:31→21:43)
[2019-11-16] MEDS: AZITHROMYCIN 500 MG in SODIUM CHLORIDE 0.9% 250 ML IVPB SCH (16:32)
[2019-11-16 16:36] LABS: Glucose,Whole Blood 220 mg/dL (75-99)
--- NOTE | 2019-11-16 17:38 | PN ---
PROGRESS NOTE DATE OF SERVICE: 11/16/2019 REASON FOR FOLLOWUP: Pneumonia with COVID-19 testing positive. INTERVAL HISTORY: The patient is currently afebrile. The patient has been breathing slightly comfortably. Denies significant cough or sputum production. No nausea, no vomiting, no abdominal pain or diarrhea. PHYSICAL EXAMINATION: Blood pressure is 123/62 with a pulse of 66, temperature 97.8. He is 92% on 5 L nasal cannula. General description is an elderly male lying in bed in no distress. RESPIRATORY SYSTEM: Unlabored breathing with decreased intensity of breath sounds. No wheeze. HEART: S1, S2. Regular rate and rhythm. ABDOMEN: Soft. No tenderness. LABS: Hemoglobin 14.2, white count 7.8. BUN of 24, creatinine 0.67. Sputum has been negative for any resistant pathogen. DIAGNOSTIC IMPRESSION AND PLAN: Patient with acute COVID-19 infection, confirmed. The patient will be started on Zithromax 500 daily in addition to the Plaquenil and we will monitor his clinical course closely. Continue with supportive care. MMODL / IJN: [id number] /
[2019-11-16] MEDS: ATORVASTATIN 80 MG TAB PO SCH (21:24)
[2019-11-16 21:44] LABS: Glucose,Whole Blood 189 mg/dL (75-99)
[2019-11-17 04:52] LABS: African American GFR (CKD) >90 (>60 ml/min/1.73 sqM); Anion Gap 3 mmol/L; Blood Urea Nitrogen 28 mg/dL (9-20); Calcium 8.6 mg/dL (8.4-10.2); Carbon Dioxide 38 mmol/L (22-30); Chloride 96 mmol/L (98-107); Glucose 209 mg/dL (74-99); Non-African American GFR(CKD) >90 (>60 ml/min/1.73 sqM); Potassium 3.7 mmol/L (3.5-5.1); Sodium 137 mmol/L (137-145)
[2019-11-17 04:58] LABS: Basophils % (A) 0 %; Eosinophils % (A) 0 %; HCT 42.8 % (39.0-53.0); HGB 14.6 gm/dL (13.0-17.5); Lymphocytes # (A) 0.3 k/uL (1.0-4.8); Lymphocytes % (A) 3 %; MCH 32.6 pg (25.0-35.0); MCHC 34.2 g/dL (31.0-37.0); MCV 95.5 fL (80.0-100.0); Mean Platelet Volume 8.5; Monocytes # (A) 0.5 k/uL (0-1.0); Monocytes % (A) 4 %; Neutrophils # (A) 10.8 k/uL (1.3-7.7); Neutrophils % (A) 92 %; Platelet Count 184 k/uL (150-450); RBC 4.49 m/uL (4.30-5.90); RDW 12.7 % (11.5-15.5); WBC 11.7 k/uL (3.8-10.6)
[2019-11-17 06:42] LABS: Glucose,Whole Blood 186 mg/dL (75-99)
[2019-11-17] MEDS: PANTOPRAZOLE 40 MG TABLET PO SCH (06:44)
[2019-11-17] MEDS: INSULIN DETEMIR (LEVEMIR) 100 UNIT/ML SYR SQ SCH ×2 (06:44→20:43)
[2019-11-17] MEDS: INSULIN ASPART (NovoLOG) 100 UNIT/ML VIAL SQ SCH ×7 (06:45→20:47)
[2019-11-17] MEDS ORDERED: POTASSIUM CHLORIDE ER 20 MEQ TAB.ER PO SCH (07:00)
[2019-11-17] MEDS: SYMBICORT 160-4.5 MCG INHALER INHALATION SCH ×2 (07:19→19:22)
[2019-11-17] MEDS: ALBUTEROL INHALER 60 PUFF/8 GM INHALER (MHU) INHALATION SCH ×4 (07:19→19:22)
--- NOTE | 2019-11-17 07:59 | XR ---
EXAMINATION TYPE: XR chest 1V portable DATE OF EXAM: 11/17/2019 CLINICAL HISTORY: Difficulty breathing progress study. TECHNIQUE: Single AP portable upright view of the chest is obtained. COMPARISON: Chest x-ray from one day earlier and older studies. FINDINGS: Right lung remains clear. Cardiac silhouette size remains mildly enlarged with background chronic emphysematous change and diffuse left mid to lower lung opacities. There is increasing inters titial opacity extending into the left upper lung on current study. The left-sided mediastinal shift and volume loss remains present. Osseous structures are intact. IMPRESSION: Persistent left mid to lower lung edema and/or infiltrate silhouetting left heart border and hemidiaphragm. Worsening left upper lung interstitial edema and/or infiltrates noted. Stable left -sided volume loss.
[2019-11-17] MEDS: AZITHROMYCIN 500 MG in SODIUM CHLORIDE 0.9% 250 ML IVPB SCH (09:49)
[2019-11-17] MEDS: APIXABAN 5 MG TAB PO SCH ×2 (09:49→20:45)
[2019-11-17] MEDS: ASPIRIN 81 MG PO SCH (09:49)
[2019-11-17] MEDS: DIGOXIN 250 MCG TAB PO SCH (09:50)
[2019-11-17] MEDS: CEFEPIME 2 GM in SODIUM CHLORIDE 0.9% 100 ML IVPB SCH ×2 (09:50→20:43)
[2019-11-17] MEDS: HYDROXYCHLOROQUINE ORAL SUSP 200 MG/8 ML ORAL.SYRG PO SCH ×2 (09:51→20:43)
[2019-11-17] MEDS: METOPROLOL TARTRATE 25 MG TAB PO SCH ×2 (09:51→20:44)
[2019-11-17] MEDS: FUROSEMIDE 10 MG/ML 4 ML VIAL IV SCH ×2 (09:51→20:43)
[2019-11-17] MEDS: predniSONE 10 MG TAB PO SCH (09:51)
[2019-11-17] MEDS: DILTIAZEM ORAL 30 MG TAB PO SCH ×3 (09:53→20:44)
--- NOTE | 2019-11-17 10:27 | PN ---
PROGRESS NOTE PULMONARY/CRITICAL CARE PROGRESS NOTE: DATE OF SERVICE: November 17, 2019 This is a 69-year-old male who was admitted back on November 09. He came in with a COPD exacerbation complicated by left lower lobe pneumonia. In addition, the patient suffers from paroxysmal atrial fibrillation with RVR, CAD, DJD, sleep apnea syndrome, and positivity for the COVID-19 virus. Currently, the patient is doing well, though. He may be discharged possibly to the [place] [facility] today or tomorrow. He states his breathing is much improved. His oxygen has been weaned down to 4 L. He typically uses 3 L at home. He denies any significant cough, wheezing, or shortness of breath. He has not been up out of bed very much. He is not producing any phlegm. There is no chest pain or chest discomfort. There is no nausea, vomiting or diarrhea. No abdominal pain. No genitourinary complaints. PHYSICAL EXAMINATION: VITAL SIGNS: Current vital signs are reviewed. His temperature is 98.1, heart rate 72, respiratory rate 18, blood pressure is 131/76 with a mean 94 and 4 to 5 L saturation is 90% to 93%. GENERAL: He appears in no acute distress. HEENT: Examination is grossly unremarkable. Mucous membranes are moist. Nasal O2 noted. NECK: Supple. Full range of motion. No adenopathy or thyromegaly. Neck veins are flat. CARDIOVASCULAR: Examination reveals regular rhythm and rate. Heart rate 72. It is irregular. S1, S2 normal. No distinct murmur. Heart sounds are distant. LUNGS: Reveal a few scattered rhonchi. Adventitious lung sounds are more prominent on the left side. There is dullness on the left side and decreased breath sounds on the left side. No wheezes noted. ABDOMEN: Obese. Bowel sounds are heard. EXTREMITIES: Are intact. No cyanosis, clubbing, or edema. SKIN: Without rash. NEUROLOGIC: Examination is brief but nonfocal. Microbiologic studies including blood and urine and sputum sampling has been negative. LABORATORY DATA: Current laboratory data includes a white count 11.7, hemoglobin 14.6, hematocrit 42.8, platelet count 184,000. Sodium 137, potassium 3.7, chloride 96, CO2 is 38. BUN and creatinine were 28 and 0.66. Anion gap is 3. His most recent chest x-ray continues to show some infiltrate and effusion on the left side. The right lung looks relatively clear. MEDICATIONS: Current medications are reviewed. He is on albuterol inhaler, Eliquis, aspirin, Lipitor, Zithromax Symbicort, Maxipime, digoxin, diltiazem, Lasix, hydroxychloroquine, insulin, metoprolol, nitroglycerin tablets, Protonix, potassium replacement, and prednisone 30 mg a day. ASSESSMENT: 1. Chronic obstructive pulmonary disease exacerbation complicated by left lower lobe pneumonia as well as COVID-19 infection. 2. Paroxysmal atrial fibrillation with RVR, resolved. 3. Coronary artery disease. 4. History of degenerative joint disease. 5. History of sleep apnea syndrome. 6. Obesity. 7. Chronic hypoxemic respiratory failure secondary to underlying chronic obstructive pulmonary disease. PLAN: The patient is doing well. He is on appropriate antibiotics and also Plaquenil. We switched his Solu-Medrol to prednisone yesterday. There is some discussion about possible discharge today or tomorrow to one of the nursing homes. No additional recommendations are made. Prognosis is guarded. His overall situation remains concerning. We will continue to follow. MMODL / IJN: [id number] /
[2019-11-17 11:45] LABS: Glucose,Whole Blood 160 mg/dL (75-99)
--- NOTE | 2019-11-17 12:35 | P.PN ---
Subjective Progress Note Date: 11/17/19 This is a 69-year-old male patient of Dr. Holland and Dr. Berumen with a previous medical history significant for paroxysmal atrial fibrillation, hypertension and hypertensive cardiovascular disease, hyperlipidemia, obesity with obstructive sleep apnea, CAD with ST elevation [place] post-PCI of the RCA back in August 2016, advanced COPD with FEV1 of 20% of predicted, chronic hypoxic respiratory failure, diabetes mellitus type 2, remote history of tobacco use. Patient has had previous admissions for acute COPD exacerbation as well as atrial flutter or atrial fibrillation with RVR. Patient most recently was hospitalized at [facility] at which time he was treated for atrial fibrillation with RVR, and pneumonia with lactic acidosis. Patient was treated with Rocephin and azithromycin. Patient was discharged home on -. Patient was instructed to hold eliquis as he was scheduled for heart catheterization on Saturday. Patient went to his ct scan tech in [place] and was to be scheduled for heart catheterization today. He then developed fever of 104 at home as well as shortness of breath and productive cough. Patient came into [facility] emergency center for evaluation. Temperature 102.3, heart rate 101 and jumped up to 177, blood pressure 125/70, pulse ox 99%.. He was found to be in A. fib with RVR, influenza and RSV negative. patient was tested for COVID19 which is pending. CBC, CMP unremarkable. Lactic acid 1.9, troponin 0.012, proBNP 1680. Chest x-ray reveals patchy atelectasis at the lung bases is new and increased compared to old exam. No heart failure seen. Repeat Chest x-ray reveals worsening left basilar airspace disease. Primary diagnostic consideration is for unifocal pneumonia. Patient has been admitted to the intensive care unit and consult in place with pulmonary medicine and cardiology consult will be added. 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 Cardizem drip will be discontinued and home oral medications resumed. 11/10: Patient is seen in the intensive care unit. He is in isolation for possible Covid 19 infection. Case was reviewed with the nurse outside the patient's room. No hands-on physical exam was performed. Patient is currently on O2 at 6 L nasal cannula with pulse ox of 95%, recommended that patient be weaned down on oxygen level. Temperature max today is 100.3. Heart rate in the 90s and low 100s. Blood pressure 119/76. Repeat blood work reveals a platelet count 108, WBC 7.1, hemoglobin 14.8. Sodium 132, potassium 4.6, chloride 102, CO2 24, BUN 10 and creatinine 0.57. Blood culture 2 no growth at 24 hours. COVID-19 testing remains pending. 11/11: Patient remains in the intensive care unit and has now been downgraded to [facility] with telemetry. Patient's less lethargic today. He is oriented 3. He received Lasix yesterday IV and diuresed well. He has had good urine output. CBC shows normal white count and hemoglobin, platelet count 139. Sodium 133, potassium 4.7, chloride 100, CO2 28, BUN 16 and creatinine 0.56. Pro-calcitonin 0.09. Blood culture no growth at 48 hours 2 specimens. Sputum culture is in progress. Repeat chest x-ray reveals small left pleural effusion and left basilar airspace disease as well as stable right infrahilar airspace disease and may represent atelectasis or developing pneumonia. Incentive spirometry and ABGs ordered. Solu-Medrol 60mg will be decreased to every 8 hours. 11/12: Patient is still having shortness of breath currently at 5 L nasal cannula. We will add Lasix 40 mg IV twice daily. Vancomycin can be discontinued at this point. COVID-19 remains pending. Patient remains in isolation. Patient has been afebrile, heart rate 90s, blood pressure 112/70, pulse ox 95% on 5 L nasal cannula. Repeat lab work reveals platelet count 135. Sodium 133, potassium 4.1, BUN 24 and creatinine 0.64. Blood sugars running in the 200s. Serum culture reveals normal fe. Blood culture no growth 2 specimens. 11/13: Patient is having less symptom with shortness of breath no chest pain at this point. Patient is responding well to current IV antibiotic with much lower temperature. Blood sugar was running high last night his Levemir was increased to 20 units twice a day and Humalog up to 5 units before meals meals plus sliding scale a. Patient COVID-19 remain pending at this point patient remain on isolation. Otherwise feeling well, still seen pulmonary with FEV1 of 20% only with a current hypoxia patient is doing much better with less oxygen concentration. Also patient original plan for elective heart catheter on Saturday with his ct scan tech at [facility] is delay ~febrile illness and infection is completely clear probably will be rescheduled for at least 2-4 weeks from his discharge date. 11/14: Patient is doing well today continued to be more tired and fatigued his hypoxia has been much better his testing still negative for this point, his bloo d sugar still mildly elevated and titrate his insulin today to keep his random blood sugar below 150. Patient is not having any chest pain or shortness of breath is bilateral pneumonia as well treated and managed currently we'll continue to wean him down on oxygen continue diuretics and switch to oral patient expected discharge probably in 48 hours. 11/15: The patient remains in intensive care unit but is a MedSurg overflow. COVID-19 is positive. Solu-Medrol will be discontinued. Blood sugars have been quite high but expect this to improve now that he is off Solu-Medrol. Patient is currently on antibiotics in the form of cefepime and Levaquin. Ultrasound of the chest revealed minimal left-sided effusion. Patient has been afebrile, heart rate 72, blood pressure 126/72, pulse ox 90% on 5 L nasal cannula. 11/16: Patient remains in the intensive care unit but is MedSurg overflow, Covid 19 positive. Patient has been started on a Zithromax then and Plaquenil by Dr. Ordonez. Patient has been hemodynamically stable with blood pressure 131/76, heart rate 72, afebrile. Pulse ox is running 90 on 5 L nasal cannula. Repeat blood work reveals white count of 11.7, CO2 38, BUN 28 creatinine 0.66. Blood sugars are running between 189 and 209. Blood sugars are improved after IV steroids discontinued. Repeat chest x-ray shows persistent left mid to lower lung edema and/or infiltrate silhouetting left heart border and hemidiaphragm. Worsening left upper lung interstitial edema and/or infiltrates noted. Stable left-sided volume loss. Patient denies having any cough at this time, no sputum production. Patient denies having chest pain. Discharge planning is in progress. Patient at this time is unable to go to subacute rehab due to restrictions regarding Covid testing. manager electrical has been in contact with family members and home care including PT have been arranged. Wheelchair will be ordered and arranged by caser up. Patient may also benefit from walker which family will obtain. We are anticipating discharge in 24-48 hours. Patient has had good urine output and Montemayor catheter will be removed later. Objective - Vital Signs Vital signs: Vital Signs Temp 98.1 F 11/17/19 06:59 Pulse 72 11/17/19 06:59 Resp 18 11/17/19 06:59 BP 131/76 11/17/19 06:59 Pulse Ox 90 L 11/17/19 07:22 Intake & Output 11/16/19 11/17/19 11/17/19 18:59 06:59 18:59 Intake Total 480 Output Total 1800 800 Balance -1800 -320 Weight 110.2 kg 110.7 kg Intake: IV 240 Cefepime 2 gm In Sodium 100 Chloride 0.9% 100 ml @ 200 mls/hr IVPB Q12HR [facility] Rx#:[id number] Sodium Chloride 0.9% 140 Oral 240 Output: Urine 1800 800 Other: Voiding Method Indwelling Catheter Indwelling Catheter - Exam Review of Systems Constitutional: Reports chills, Reports fatigue, Reports fever, Reports lethargy, Reports malaise, Reports weakness Ears, nose, mouth and throat: Denies dysphagia, Denies nasal congestion, Denies nasal discharge, Denies sore throat, Denies vertigo Cardiovascular: Reports dyspnea on exertion, Reports shortness of breath, Denies chest pain, Denies leg edema Respiratory: Reports cough with sputum, Reports dyspnea, Reports respiratory infections, Denies cough, Denies excessive sputum, Denies hemoptysis Gastrointestinal: Denies abdominal pain, Denies diarrhea, Denies nausea, Denies vomiting Genitourinary: Denies dysuria, Denies urinary frequency, Denies urinary retention Musculoskeletal: Reports muscle weakness, Denies frequent falls, Denies gait dysfunction, Denies myalgias Integumentary: Denies pruritus, Denies rash, Denies wounds Neurological: Denies change in mentation, Denies change in speech, Denies numbness, Denies weakness Psychiatric: Denies anxiety, Denies depression Endocrine: Reports fatigue, Denies weight change Physical examination- Gen: This is a 69-year-old man. He is resting in the ICU bed and appears to be comfortable and in no acute distress. HEENT: Head is atraumatic, normocephalic. Pupils equal, round. Sclerae is anicteric. NECK: Supple. No JVD. No lymphadenopathy. No thyromegaly. LUNGS: Minimal basilar crackles. No intercostal retractions. HEART: Irregularly irregular. Systolic ejection murmur. ABDOMEN: Soft. Bowel sounds are present. No masses. No tenderness. Montemayor catheter draining clear wayne urine. EXTREMITIES: No pedal edema. No calf tenderness. NEUROLOGICAL: Patient is awake, alert and oriented x3. Cranial nerves 2 through 12 are grossly intact. - Labs CBC & Chem 7: 11/17/19 04:01 11/17/19 04:01 Labs: Abnormal Lab Results - Last 24 Hours (Table) 11/16/19 11/16/19 11/16/19 Range/Units 12:00 16:35 21:32 WBC (3.8-10.6) k/uL Neutrophils # (1.3-7.7) k/uL Lymphocytes # (1.0-4.8) k/uL Chloride (98-107) mmol/L Carbon Dioxide (22-30) mmol/L BUN (9-20) mg/dL Glucose (74-99) mg/dL POC Glucose (mg/dL) 235 H 220 H 189 H (75-99) mg/dL 11/17/19 11/17/19 11/17/19 Range/Units 04:01 04:01 06:40 WBC 11.7 H (3.8-10.6) k/uL Neutrophils # 10.8 H (1.3-7.7) k/uL Lymphocytes # 0.3 L (1.0-4.8) k/uL Chloride 96 L (98-107) mmol/L Carbon Dioxide 38 H (22-30) mmol/L BUN 28 H (9-20) mg/dL Glucose 209 H (74-99) mg/dL POC Glucose (mg/dL) 186 H (75-99) mg/dL Assessment and Plan Plan: 1. Acute febrile illness most likely secondary to bibasilar pneumonia, gram- negative pneumonia and COVID-19. Atrovent nebulizer treatment every 6 hours as needed, Symbicort twice daily, cefepime, Levaquin 500 mg daily. Continue IV Lasix 40 mg every 12 hours, prednisone 30 mg daily. Consults with Dr. Lock and Dr. José Luis appreciated. Transfer to [facility] floor with telemetry. Patient has been started on Plaquenil and azithromycin. 2. A. fib with RVR. Heart rate is currently controlled. Patient continued on eliquis 5 mg twice daily, digoxin 250 g daily, Cardizem oral 90 mg 3 times daily, Lopressor 25 mg twice daily. Cardiology consult. 3. Advanced COPD. Continue Atrovent, Pulmicort twice daily, consult with pulmonary medicine 4. Obstructive sleep apnea. 5. Known coronary artery disease post angioplasty and stent placement. Patient was scheduled to undergo catheterization at [facility]. 6. Hypertension hypertensive cardiovascular disease. 7. Abdominal aortic aneurysm monitored by vascular surgery. 8. GI prophylaxis. Protonix. 9. DVT prophylaxis. Eliquis. 10. Acute hypoxic respiratory failure with chronic hypoxic respiratory failure on home O2. The patient has had significant increased oxygen needs while in the hospital. 11. Hyperglycemia secondary to steroids. Continue Levemir 20 units twice daily, NovoLog 8 units with meals and scale. Solu-Medrol discontinued and patient now on prednisone daily. Discharge plan: home with [facility] in the next 24-48 hours. Wheelchair and walker to be arranged for home. Impression and plan of care have been directed as dictated by the signing physician. Joy Baxter nurse practitioner acting as scribe for signing physician.
--- NOTE | 2019-11-17 15:59 | PN ---
PROGRESS NOTE DATE OF SERVICE: 11/17/2019 REASON FOR FOLLOWUP: COVID-19 infection. INTERVAL HISTORY: The patient is currently afebrile. The patient is hemodynamically stable. The patient is currently on 5 L nasal cannula. No worsening respiratory distress or any vomiting or diarrhea has been reported by nursing staff. PHYSICAL EXAMINATION: Blood pressure 131/76, pulse 72, temperature 98.1. He is 90% on 5 L nasal cannula. General description is an elderly male up in the chair in no distress. RESPIRATORY SYSTEM: Unlabored breathing. No respiratory distress has been noted. LABS: Hemoglobin is 14.6, white count 11.7. BUN of 28, creatinine 0.66. DIAGNOSTIC IMPRESSION AND PLAN: Patient with acute COVID-19 infection. Patient to continue with Zithromax and Plaquenil along with respiratory support. Monitor clinical course closely. LANDY / DANIELLA: [id number] /
[2019-11-17 16:52] LABS: Glucose,Whole Blood 179 mg/dL (75-99)
[2019-11-17 20:43] LABS: Glucose,Whole Blood 214 mg/dL (75-99)
[2019-11-17] MEDS: ATORVASTATIN 80 MG TAB PO SCH (20:44)
[2019-11-18] MEDS ORDERED: FUROSEMIDE 10 MG/ML 4 ML VIAL IV STA (00:37)
[2019-11-18 04:40] LABS: HCT 44.7 % (39.0-53.0); HGB 15.5 gm/dL (13.0-17.5); MCHC 34.8 g/dL (31.0-37.0); MCV 94.8 fL (80.0-100.0); Mean Platelet Volume 8.4; Platelet Count 179 k/uL (150-450); RBC 4.71 m/uL (4.30-5.90); RDW 12.9 % (11.5-15.5); WBC 12.2 k/uL (3.8-10.6)
[2019-11-18 04:47] LABS: African American GFR (CKD) >90 (>60 ml/min/1.73 sqM); Blood Urea Nitrogen 28 mg/dL (9-20); Calcium 8.6 mg/dL (8.4-10.2); Chloride 91 mmol/L (98-107); Glucose 117 mg/dL (74-99); Non-African American GFR(CKD) >90 (>60 ml/min/1.73 sqM); Sodium 134 mmol/L (137-145)
[2019-11-18 04:55] LABS: Anion Gap 5 mmol/L; Carbon Dioxide 38 mmol/L (22-30)
[2019-11-18 05:11] LABS: Potassium 5.5 mmol/L (3.5-5.1)
[2019-11-18 06:47] LABS: Glucose,Whole Blood 106 mg/dL (75-99)
[2019-11-18] MEDS: INSULIN ASPART (NovoLOG) 100 UNIT/ML VIAL SQ SCH ×7 (07:04→21:10)
[2019-11-18] MEDS: ALBUTEROL INHALER 60 PUFF/8 GM INHALER (MHU) INHALATION SCH ×4 (08:04→19:41)
[2019-11-18] MEDS: SYMBICORT 160-4.5 MCG INHALER INHALATION SCH ×2 (08:05→19:41)
--- NOTE | 2019-11-18 08:08 | XR ---
EXAMINATION TYPE: XR chest 1V portable DATE OF EXAM: 11/18/2019 COMPARISON: 11/17/2019 HISTORY: Desaturation and worsening pneumonia TECHNIQUE: Single frontal view of the chest is obtained. FINDINGS: Improving now moderate left pleural effusion with associated left basilar airspace disease . Cardiomediastinal silhouette is shifted to the left secondary to patient positioning and partially obscured but appears again enlarged. Right costophrenic angle is not image and cannot be evaluated. R ight lung remains well aerated. Minimal atelectasis in the left midlung. IMPRESSION: Improved moderate left pleural effusion and left basilar airspace disease, likely atelec tasis.
[2019-11-18 08:18] LABS: Creatine Kinase MB 0.4 ng/mL (0.0-2.4); Troponin I <0.012 ng/mL (0.000-0.034)
[2019-11-18] MEDS: ASPIRIN 81 MG PO SCH (08:42)
[2019-11-18] MEDS: FUROSEMIDE 10 MG/ML 4 ML VIAL IV SCH ×2 (08:42→21:11)
[2019-11-18] MEDS: APIXABAN 5 MG TAB PO SCH ×2 (08:42→21:07)
[2019-11-18] MEDS: PANTOPRAZOLE 40 MG TABLET PO SCH (08:42)
[2019-11-18] MEDS: predniSONE 10 MG TAB PO SCH (08:42)
[2019-11-18] MEDS: METOPROLOL TARTRATE 25 MG TAB PO SCH ×2 (08:42→21:08)
[2019-11-18] MEDS: DIGOXIN 250 MCG TAB PO SCH (08:42)
[2019-11-18] MEDS: DILTIAZEM ORAL 30 MG TAB PO SCH ×3 (08:42→21:07)
[2019-11-18] MEDS: CEFEPIME 2 GM in SODIUM CHLORIDE 0.9% 100 ML IVPB SCH (08:43)
[2019-11-18] MEDS: AZITHROMYCIN 500 MG in SODIUM CHLORIDE 0.9% 250 ML IVPB SCH (08:43)
[2019-11-18] MEDS: HYDROXYCHLOROQUINE ORAL SUSP 200 MG/8 ML ORAL.SYRG PO SCH ×2 (08:43→21:24)
[2019-11-18] MEDS: INSULIN DETEMIR (LEVEMIR) 100 UNIT/ML SYR SQ SCH ×2 (08:44→21:11)
--- NOTE | 2019-11-18 10:48 | PN ---
PROGRESS NOTE PULMONARY/CRITICAL CARE PROGRESS NOTE: DATE OF SERVICE: November 18, 2019 This is a 69-year-old male who was admitted back on November 09. He came in with a COPD exacerbation complicated by left lower lobe pneumonia. In addition, the patient suffers from paroxysmal atrial fibrillation with RVR, CAD, DJD, sleep apnea syndrome, and was determined to be positive for COVID-19 virus. Currently, the patient is doing reasonably well. He is currently on 8 L high flow. His saline IV is running at 20 mL an hour. His chest x-ray today compared to yesterday has improved. Currently on cefepime, Zithromax and Plaquenil 200 mg twice a day. The patient is feeling much better. He is lying flat in bed. I did tell the nurses that he needs to get up and move around. He has been very inactive the last couple days and really has quite a significant amount of lower extremity weakness. PHYSICAL EXAMINATION: VITAL SIGNS: Vital signs are reviewed. Temperature is 98.1, heart rate 92, respiratory rate 21, blood pressure 101/70, mean 80, saturations are 95% on 8 L high-flow. GENERAL: Appears in no acute distress. HEENT: Examination is grossly unremarkable. NECK: Supple. Full range of motion. No adenopathy. Neck veins are flat. CARDIOVASCULAR: Examination reveals regular rhythm and rate. S1, S2 normal. LUNGS: Reveal severely diminished breath sounds throughout. There is diminished breath sounds, more so on the left than on the right side. There is dullness at the left base. A few scattered rhonchi. Few scattered wheezes. No crackles. ABDOMEN: Soft. Bowel sounds are heard. EXTREMITIES: Are intact. Minimal edema. SKIN: Without rash. NEUROLOGIC: Examination is brief but nonfocal. LAB DATA: Lab data is reviewed. White count 12.2, hemoglobin 15.5, hematocrit 44.7, platelet count of 179,000. Sodium 134, potassium 5.5, chloride of 91, CO2 of 38. Anion gap is 5. BUN and creatinine 28 and 0.57. Repeat potassium is 3.6. N terminal pro-BNP 1150. Chest x-ray today after some IV Lasix shows improved left-sided pleural effusion. Microbiologic samples are thus far all negative. MEDICATIONS: Medications are reviewed. In addition to the cefepime, Plaquenil, and azithromycin, the patient is on usual medications including prednisone 30 mg a day. ASSESSMENT: 1. Chronic obstructive pulmonary disease exacerbation complicated by left lower lobe pneumonia as well as COVID-19 infection. 2. Paroxysmal atrial fibrillation with RVR, resolved. 3. Coronary artery disease. 4. History of degenerative joint disease. 5. History of sleep apnea syndrome. 6. Obesity. 7. Chronic hypoxemic respiratory failure secondary to underlying chronic obstructive pulmonary disease and chronic obstructive pulmonary disease exacerbation. PLAN: The patient's Solu-Medrol is switched to prednisone. The patient is on Ventolin and Symbicort inhaler. Additional recommendations and suggestions are forthcoming. Chest x-ray is improved. We will continue to titrate down the oxygen. We are hopefully looking for discharge. Additional recommendations and suggestions are forthcoming. WILLIAML / IJN: [id number] /
[2019-11-18 11:45] LABS: Glucose,Whole Blood 133 mg/dL (75-99)
--- NOTE | 2019-11-18 12:08 | P.PN ---
Subjective Progress Note Date: 11/18/19 This is a 69-year-old male patient of Dr. Holland and Dr. Berumen with a previous medical history significant for paroxysmal atrial fibrillation, hypertension and hypertensive cardiovascular disease, hyperlipidemia, obesity with obstructive sleep apnea, CAD with ST elevation [place] post-PCI of the RCA back in August 2016, advanced COPD with FEV1 of 20% of predicted, chronic hypoxic respiratory failure, diabetes mellitus type 2, remote history of tobacco use. Patient has had previous admissions for acute COPD exacerbation as well as atrial flutter or atrial fibrillation with RVR. Patient most recently was hospitalized at [facility] at which time he was treated for atrial fibrillation with RVR, and pneumonia with lactic acidosis. Patient was treated with Rocephin and azithromycin. Patient was discharged home on -. Patient was instructed to hold eliquis as he was scheduled for heart catheterization on Saturday. 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 He then developed fever of 104 at home as well as shortness of breath and productive cough. Patient came into [facility] emergency center for evaluation. Temperature 102.3, heart rate 101 and jumped up to 177, blood pressure 125/70, pulse ox 99%.. He was found to be in A. fib with RVR, influenza and RSV negative. patient was tested for COVID19 which is pending. CBC, CMP unremarkable. Lactic acid 1.9, troponin 0.012, proBNP 1680. Chest x-ray reveals patchy atelectasis at the lung bases is new and increased compared to old exam. No heart failure seen. Repeat Chest x-ray reveals worsening left basilar airspace disease. Primary diagnostic consideration is for unifocal pneumonia. Patient has been admitted to the intensive care unit and consult in place with pulmonary medicine and cardiology consult will be added. equipment monitor phototypesetting is now A. 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 Cardizem drip will be discontinued and home oral medications resumed. 11/10: Patient is seen in the intensive care unit. He is in isolation for possible Covid 19 infection. Case was reviewed with the nurse outside the patient's room. No hands-on physical exam was performed. Patient is currently on O2 at 6 L nasal cannula with pulse ox of 95%, recommended that patient be weaned down on oxygen level. Temperature max today is 100.3. Heart rate in the 90s and low 100s. Blood pressure 119/76. Repeat blood work reveals a platelet count 108, WBC 7.1, hemoglobin 14.8. Sodium 132, potassium 4.6, chloride 102, CO2 24, BUN 10 and creatinine 0.57. Blood culture 2 no growth at 24 hours. COVID-19 testing remains pending. 11/11: Patient remains in the intensive care unit and has now been downgraded to [facility] with telemetry. Patient's less lethargic today. He is oriented 3. He received Lasix yesterday IV and diuresed well. He has had good urine output. CBC shows normal white count and hemoglobin, platelet count 139. Sodium 133, potassium 4.7, chloride 100, CO2 28, BUN 16 and creatinine 0.56. Pro-calcitonin 0.09. Blood culture no growth at 48 hours 2 specimens. Sputum culture is in progress. Repeat chest x-ray reveals small left pleural effusion and left basilar airspace disease as well as stable right infrahilar airspace disease and may represent atelectasis or developing pneumonia. Incentive spirometry and ABGs ordered. Solu-Medrol 60mg will be decreased to every 8 hours. 11/12: Patient is still having shortness of breath currently at 5 L nasal cannula. We will add Lasix 40 mg IV twice daily. Vancomycin can be discontinued at this point. COVID-19 remains pending. Patient remains in isolation. Patient has been afebrile, heart rate 90s, blood pressure 112/70, pulse ox 95% on 5 L nasal cannula. Repeat lab work reveals platelet count 135. Sodium 133, potassium 4.1, BUN 24 and creatinine 0.64. Blood sugars running in the 200s. Serum culture reveals normal fe. Blood culture no growth 2 specimens. 11/13: Patient is having less symptom with shortness of breath no chest pain at this point. Patient is responding well to current IV antibiotic with much lower temperature. Blood sugar was running high last night his Levemir was increased to 20 units twice a day and Humalog up to 5 units before meals meals plus sliding scale a. Patient COVID-19 remain pending at this point patient remain on isolation. Otherwise feeling well, still seen pulmonary with FEV1 of 20% only with a current hypoxia patient is doing much better with less oxygen concentration. 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 11/14: Patient is doing well today continued to be more tired and fatigued his hypoxia has been much better his testing still negative for this point, his bloo d sugar still mildly elevated and titrate his insulin today to keep his random blood sugar below 150. Patient is not having any chest pain or shortness of breath is bilateral pneumonia as well treated and managed currently we'll continue to wean him down on oxygen continue diuretics and switch to oral patient expected discharge probably in 48 hours. 11/15: The patient remains in intensive care unit but is a MedSurg overflow. COVID-19 is positive. Solu-Medrol will be discontinued. Blood sugars have been quite high but expect this to improve now that he is off Solu-Medrol. Patient is currently on antibiotics in the form of cefepime and Levaquin. Ultrasound of the chest revealed minimal left-sided effusion. Patient has been afebrile, heart rate 72, blood pressure 126/72, pulse ox 90% on 5 L nasal cannula. 11/16: Patient remains in the intensive care unit but is MedSurg overflow, Covid 19 positive. Patient has been started on a Zithromax then and Plaquenil by Dr. Ordonez. Patient has been hemodynamically stable with blood pressure 131/76, heart rate 72, afebrile. Pulse ox is running 90 on 5 L nasal cannula. Repeat blood work reveals white count of 11.7, CO2 38, BUN 28 creatinine 0.66. Blood sugars are running between 189 and 209. Blood sugars are improved after IV steroids discontinued. Repeat chest x-ray shows persistent left mid to lower lung edema and/or infiltrate silhouetting left heart border and hemidiaphragm. Worsening left upper lung interstitial edema and/or infiltrates noted. Stable left-sided volume loss. Patient denies having any cough at this time, no sputum production. Patient denies having chest pain. Discharge planning is in progress. Patient at this time is unable to go to subacute rehab due to restrictions regarding Covid testing. manager mining has been in contact with family members and home care including PT have been arranged. Wheelchair will be ordered and arranged by telehealth case manager. Patient may also benefit from walker which family will obtain. We are anticipating discharge in 24-48 hours. Patient has had good urine output and Montemayor catheter will be removed later. 11/17: Patient developed increasing shortness of breath during the evening and oxygen was increased to 15 L high flow nasal cannula. Patient was given a dose of Lasix 40 mg IV push and was weaned down to 8 L nasal cannula. Pulse ox then was running 85% and he is currently up to 10 L nasal cannula. Patient is found sitting up in a chair and appears to be in no acute respiratory distress. Patient has been very reluctant to move. Patient has incentive spirometry and is only reaching 75 ML's. WBC 12.2. Sodium 135, potassium 5.5, chloride 91, CO2 38, P1 20 and creatinine 0.57. Blood sugars run between 106 and 133. Troponin from last night was negative, proBNP 1150. Repeat potassium 3.6. equipment monitor phototypesetting is A. fib controlled rate. Patient is afebrile, heart rate 92, blood pressure 101/70. Patient's has been updated via the phone by Dr. Derek apple. Patient is extremely weak and we will repeat Covid 19 testing in anticipation of need for subacute rehab. Patient's states that she is unable to manage him at home. Objective - Vital Signs Vital signs: Vital Signs Temp 98.1 F 11/17/19 14:00 Pulse 92 11/18/19 07:00 Resp 21 11/18/19 07:00 BP 101/70 11/18/19 06:00 Pulse Ox 92 L 11/18/19 08:10 Intake & Output 11/17/19 11/18/19 11/18/19 18:59 06:59 18:59 Intake Total 140 Output Total 1750 Balance -1610 Weight 110.8 kg Intake: IV 140 Cefepime 2 gm In Sodium 100 Chloride 0.9% 100 ml @ 200 mls/hr IVPB Q12HR [facility] Rx#:[id number] Sodium Chloride 0.9% 40 Output: Urine 1750 Other: Voiding Method Urinal Urinal - Exam Review of Systems Constitutional: Denies chills, Reports fatigue, denies fever, Reports lethargy, Reports malaise, Reports weakness Ears, nose, mouth and throat: Denies dysphagia, Denies nasal congestion, Denies nasal discharge, Denies sore throat, Denies vertigo Cardiovascular: Reports dyspnea on exertion, Reports shortness of breath, Denies chest pain, Denies leg edema Respiratory: Reports cough with sputum, Reports dyspnea, Reports respiratory infections, Denies cough, Denies excessive sputum, Denies hemoptysis Gastrointestinal: Denies abdominal pain, Denies diarrhea, Denies nausea, Denies vomiting Genitourinary: Denies dysuria, Denies urinary frequency, Denies urinary retention Musculoskeletal: Reports muscle weakness, Denies frequent falls, Denies gait dysfunction, Denies myalgias Integumentary: Denies pruritus, Denies rash, Denies wounds Neurological: Denies change in mentation, Denies change in speech, Denies numbness, Denies weakness Psychiatric: Denies anxiety, Denies depression Endocrine: Reports fatigue, Denies weight change Physical examination- Gen: This is a 69-year-old man. He is resting in the chair in ICU and appears to be comfortable and in no acute distress. HEENT: Head is atraumatic, normocephalic. Pupils equal, round. Sclerae is anicte brenna. NECK: Supple. No JVD. No lymphadenopathy. No thyromegaly. LUNGS: Minimal basilar crackles. No intercostal retractions. HEART: Irregularly irregular. Systolic ejection murmur. ABDOMEN: Soft. Bowel sounds are present. No masses. No tenderness. Montemayor catheter draining clear wayne urine. EXTREMITIES: No pedal edema. No calf tenderness. NEUROLOGICAL: Patient is awake, alert and oriented x3. Cranial nerves 2 through 12 are grossly intact. - Labs CBC & Chem 7: 11/18/19 04:02 11/18/19 06:19 Labs: Abnormal Lab Results - Last 24 Hours (Table) 11/17/19 11/17/19 11/17/19 Range/Units 11:42 16:41 20:42 WBC (3.8-10.6) k/uL Sodium (137-145) mmol/L Potassium (3.5-5.1) mmol/L Chloride (98-107) mmol/L Carbon Dioxide (22-30) mmol/L BUN (9-20) mg/dL Creatinine (0.66-1.25) mg/dL Glucose (74-99) mg/dL POC Glucose (mg/dL) 160 H 179 H 214 H (75-99) mg/dL 11/18/19 11/18/19 11/18/19 Range/Units 04:02 04:02 06:46 WBC 12.2 H (3.8-10.6) k/uL Sodium 134 L (137-145) mmol/L Potassium 5.5 H (3.5-5.1) mmol/L Chloride 91 L (98-107) mmol/L Carbon Dioxide 38 H (22-30) mmol/L BUN 28 H (9-20) mg/dL Creatinine 0.57 L (0.66-1.25) mg/dL Glucose 117 H (74-99) mg/dL POC Glucose (mg/dL) 106 H (75-99) mg/dL Assessment and Plan Plan: 1. Acute febrile illness most likely secondary to bibasilar pneumonia, gram- negative pneumonia and COVID-19. Atrovent nebulizer treatment every 6 hours as needed, Symbicort twice daily, cefepime, Levaquin 500 mg daily. Continue IV Lasix 40 mg every 12 hours, prednisone 30 mg daily. Consults with Dr. Lock and Dr. Ordonez appreciated. Transfer to [facility] floor with telemetry. Patient has been started on Plaquenil and azithromycin. 2. A. fib with RVR. Heart rate is currently controlled. Patient continued on eliquis 5 mg twice daily, digoxin 250 g daily, Cardizem oral 90 mg 3 times daily, Lopressor 25 mg twice daily. Cardiology consult. 3. Advanced COPD. Continue Atrovent, Pulmicort twice daily, consult with pulmonary medicine 4. Obstructive sleep apnea. 5. Known coronary artery disease post angioplasty and stent placement. Patient was scheduled to undergo catheterization at [facility]. 6. Hypertension hypertensive cardiovascular disease. 7. Abdominal aortic aneurysm monitored by vascular surgery. 8. GI prophylaxis. Protonix. 9. DVT prophylaxis. Eliquis. 10. Acute hypoxic respiratory failure with chronic hypoxic respiratory failure on home O2. The patient has had significant increased oxygen needs while in the hospital. 11. Hyperglycemia secondary to steroids. Continue Levemir 20 units twice daily, NovoLog 8 units with meals and scale. Continue prednisone daily. Discharge plan: home with [facility] in the next 24-48 hours. Wheelchair and walker to be arranged for home. Impression and plan of care have been directed as dictated by the signing physician. Joy Baxter nurse practitioner acting as scribe for signing physician.
[2019-11-18 16:42] LABS: Glucose,Whole Blood 97 mg/dL (75-99)
--- NOTE | 2019-11-18 16:59 | PN ---
PROGRESS NOTE DATE OF SERVICE: 11/18/2019 REASON FOR FOLLOWUP: Acute COVID-19 viral pneumonia. INTERVAL HISTORY: The patient is currently afebrile. He is breathing slightly comfortably, though his oxygen requirements are slightly going up. The patient denies having any chest pain. Cough is mostly baseline; no worsening. No nausea. No vomiting. No abdominal pain and no diarrhea. PHYSICAL EXAMINATION: Blood pressure 101/70 with a pulse of 82, temperature 98.1. He is 95% on 8 L high-flow oxygen. General description is an elderly male lying in bed in no distress. RESPIRATORY SYSTEM: Unlabored breathing with decreased intensity of breath sounds. No wheeze. HEART: S1, S2. Regular rate and rhythm. ABDOMEN: Soft. No tenderness. LABS/IMAGING: Hemoglobin 15.5, white count 12.2, creatinine 0.57. Blood and sputum cultures have been negative so far. The patient did have a chest x-ray this morning: Improved moderate left pleural effusion, left basilar airspace disease, likely atelectasis. DIAGNOSTIC IMPRESSION AND PLAN: Patient with acute viral pneumonia. Patient's previous nasopharyngeal swab has been positive for COVID-19. The patient is currently on Zithromax and Plaquenil; to continue, and we will monitor his clinical course closely. Continue with supportive care. MMODL / IJN: [id number] / SISSY
[2019-11-18 20:30] LABS: Glucose,Whole Blood 100 mg/dL (75-99)
[2019-11-18] MEDS: ATORVASTATIN 80 MG TAB PO SCH (21:07)
[2019-11-18 23:13] LABS: Hemoglobin A1C 8.9 % (4.0-6.0)
[2019-11-19 02:07] LABS: ABG Base Excess 17.3 mmol/L; ABG Oxygen Saturation 83.6 % (94-97); ABG PCO2 44 mmHg (35-45); ABG TCO2 41 mmol/L (19-24); Allen Test Performed? Yes
[2019-11-19 02:09] LABS: ABG PO2 45 mmHg (83-108)
--- NOTE | 2019-11-19 02:17 | XR ---
EXAMINATION TYPE: XR chest 1V DATE OF EXAM: 11/19/2019 COMPARISON: Yesterday HISTORY: Short of breath TECHNIQUE: Single view FINDINGS: Heart and mediastinum are shifted to the left side. There is consolidation and atelectasis in the left lower lobe. Right lung is fairly clear. There is no heart failure. There are chest leads. IMPRESSION: There is progression of volume loss in the left hemithorax compared to yesterday. Left br onchial obstruction is suspected. CT scan would be helpful for further evaluation if clinically indic ated. No heart failure. There is consolidation and atelectasis in the left lower lobe increased compared to yesterday.
[2019-11-19 05:43] LABS: ABG Base Excess 16.7 mmol/L; ABG HCO3 39 mmol/L (21-25); ABG Oxygen Saturation 91.9 % (94-97); ABG PCO2 44 mmHg (35-45); ABG PO2 60 mmHg (83-108); ABG TCO2 40 mmol/L (19-24); Allen Test Performed? Yes
[2019-11-19 06:17] LABS: African American GFR (CKD) >90 (>60 ml/min/1.73 sqM); Anion Gap 6 mmol/L; Blood Urea Nitrogen 30 mg/dL (9-20); Calcium 8.9 mg/dL (8.4-10.2); Chloride 90 mmol/L (98-107); Glucose 57 mg/dL (74-99); Non-African American GFR(CKD) >90 (>60 ml/min/1.73 sqM); Potassium 3.6 mmol/L (3.5-5.1); Sodium 136 mmol/L (137-145)
[2019-11-19] MEDS ORDERED: DEXTROSE 50% SYRINGE 50 ML IVP STA (06:18)
[2019-11-19] MEDS: INSULIN ASPART (NovoLOG) 100 UNIT/ML VIAL SQ SCH ×4 (06:21→18:26)
[2019-11-19 06:26] LABS: Carbon Dioxide 40 mmol/L (22-30)
[2019-11-19 06:27] LABS: Glucose,Whole Blood 66 mg/dL (75-99)
[2019-11-19] MEDS: PANTOPRAZOLE 40 MG TABLET PO SCH (06:47)
[2019-11-19 06:57] LABS: Glucose,Whole Blood 115 mg/dL (75-99)
--- NOTE | 2019-11-19 07:52 | XR ---
EXAMINATION TYPE: XR chest 1V DATE OF EXAM: 11/19/2019 COMPARISON: 11/19/2019 earlier exam INDICATION: Pneumonia TECHNIQUE: Single frontal view of the chest is obtained. FINDINGS: The heart size is indistinct. Patient is rotated to the left. Mediastinum may be shifted towards the left. The pulmonary vasculature is normal. Right costophrenic angle is excluded from the [id number]. There is a moderate left pleural fluid c ollection. Opacity is through the left lung with increased lung markings in the left upper lobe. Find ings are worsening over the interval. IMPRESSION: 1. Worsening opacification of the left lower lobe and lingula. Worsening infiltrate in the left upper lobe is present. There may be some shift of the mediastinum towards the left. Correlate for atelecta sis. Moderate pleural effusion appears stable. Continued follow-up is recommended.
[2019-11-19 08:34] LABS: Basophils % (A) 0 %; Eosinophils # (A) 0.1 k/uL (0-0.7); Eosinophils % (A) 1 %; HCT 50.5 % (39.0-53.0); Lymphocytes # (A) 0.8 k/uL (1.0-4.8); Lymphocytes % (A) 5 %; MCH 32.2 pg (25.0-35.0); MCHC 33.7 g/dL (31.0-37.0); MCV 95.6 fL (80.0-100.0); Monocytes # (A) 0.7 k/uL (0-1.0); Monocytes % (A) 4 %; Neutrophils # (A) 14.7 k/uL (1.3-7.7); Neutrophils % (A) 89 %; Platelet Count 205 k/uL (150-450); RBC 5.29 m/uL (4.30-5.90); RDW 12.6 % (11.5-15.5); WBC 16.5 k/uL (3.8-10.6)
[2019-11-19] MEDS: ALBUTEROL INHALER 60 PUFF/8 GM INHALER (MHU) INHALATION SCH ×4 (08:55→19:18)
[2019-11-19] MEDS: SYMBICORT 160-4.5 MCG INHALER INHALATION SCH ×2 (08:56→19:19)
[2019-11-19 08:57] LABS: Creatine Kinase MB 0.4 ng/mL (0.0-2.4); Troponin I <0.012 ng/mL (0.000-0.034)
[2019-11-19] MEDS: FUROSEMIDE 10 MG/ML 4 ML VIAL IV SCH (09:05)
[2019-11-19] MEDS: AZITHROMYCIN 500 MG in SODIUM CHLORIDE 0.9% 250 ML IVPB SCH (09:05)
[2019-11-19] MEDS: POTASSIUM CHLORIDE 10 MEQ in WATER FOR INJECTION 1 100ML.BAG IVPB SCH ×2 (09:05→14:29)
[2019-11-19] MEDS ORDERED: IV FLUID CONTINUATION 1,000 ML IV ONE (10:15)
--- NOTE | 2019-11-19 11:25 | PCN ---
PROCEDURE NOTE PROCEDURE: Left internal jugular triple-lumen catheter. PREOPERATIVE DIAGNOSIS: Administration of fluids and pressors. POSTOPERATIVE DIAGNOSIS: Administration of fluids and pressors. FREELANCE COPYWRITER: Dr. Barry. ASSISTING: Lety Chaparro. TRIPLE LUMEN CATHETER PLACEMENT: Indication: Hemodynamic monitoring/Intravenous access. A time-out was completed verifying correct patient, procedure, site, positioning, and implant(s) or special equipment if applicable. The patient was placed in a dependent position appropriate for triple lumen catheter placement based on the vein to be cannulated. The patient's left neck was prepped and draped in sterile fashion. 1% Lidocaine was used to anesthetize the surrounding skin area. A triple lumen 9F Cordis catheter was introduced into the left internal jugular vein using Seldinger technique. The catheter was threaded smoothly over the guide wire and appropriate blood return was obtained. Each lumen of the catheter was evacuated of air and flushed with sterile saline. The catheter was then sutured in place to the skin and a sterile dressing applied. Perfusion to the extremity distal to the point of catheter insertion was checked and found to be adequate. The left internal jugular site was employed. There was no immediate complication. There was good blood return from all 3 ports. The tip of the catheter was noted to be in the junction between the superior vena cava and right atrium. The catheter was sutured in place. Sterile dressing was applied. There was no immediate complication. MMODL / IJN: [id number] /
--- NOTE | 2019-11-19 11:27 | PCN ---
PROCEDURE NOTE PROCEDURE: Right radial art line insertion. PREOPERATIVE DIAGNOSIS: Frequent blood gases and blood gas monitoring. POSTOPERATIVE DIAGNOSIS: Frequent blood gases and blood gas monitoring. OPERATORS: Dr. Barry and Lety Chaparro. ARTERIAL LINE PLACEMENT: Indications: Hemodynamic monitoring. A time-out was completed verifying correct patient, procedure, site, positioning, and implant(s) or special equipment if applicable. Deven's test was performed to ensure adequate perfusion. The patient's right wrist was prepped and draped in sterile fashion. 1% Lidocaine was used to anesthetize the area. An 18G Arrow arterial line was introduced into the right radial artery. The catheter was threaded over the guide wire and the needle was removed with appropriate pulsatile blood return. Blood loss was minimal. The catheter was then sutured in place to the skin and a sterile dressing applied. Perfusion to the extremity distal to the point of catheter insertion was checked and found to be adequate. The patient tolerated the procedure well and there were no complications. There was no immediate complication. The right radial artery was used. There was good blood return and waveform reading. Catheter was sutured in place. Sterile dressing was applied by the nurse. There was no immediate complication. MMODL / IJN: [id number] /
[2019-11-19 11:30] LABS: ABG Base Excess 14.5 mmol/L; ABG HCO3 38 mmol/L (21-25); ABG Oxygen Saturation 96.8 % (94-97); ABG PCO2 52 mmHg (35-45); ABG PH 7.48 (7.35-7.45); ABG PO2 93 mmHg (83-108); ABG TCO2 40 mmol/L (19-24); Allen Test Performed? Yes
--- NOTE | 2019-11-19 11:34 | PCN ---
PROCEDURE NOTE PROCEDURE: Bronchoscopy, airway examination, therapeutic lavage, BAL involving the left lung. OPERATORS: Dr. Barry and Lety Chaparro. PREOPERATIVE DIAGNOSIS: Mucus plugging left mainstem with left lung collapse. POSTOPERATIVE DIAGNOSIS: Mucus plugging left mainstem with left lung collapse. DESCRIPTION OF PROCEDURE: The patient was sedated and paralyzed for the procedure. The patient was connected already to the ventilator. The bronchoscope adapter was connected to the endotracheal tube. The bronchoscope was pushed through the endotracheal tube. The distal bret appeared normal. The tracheal bret was normal. The right upper lobe and its 3 segments, right middle lobe and its 2 segments, right lower lobe and its 5 segments all had relatively normal appearance except for some mild to moderate bronchitis. There were some secretions noted. They were purulent. There was no large mucus plugs. On the left side, there was a huge mucus plug completely obstructing the proximal left mainstem. This was suctioned with some difficulty with the bronchoscope. After all the secretions were removed, the bronchoscope was used to obtain pooled secretions and washings from the left lung. About 40 mL was recovered. Additional secretions and mucus as well as purulence was removed from the left lung using saline. The left upper lobe and its 2 segments, the lingula and its 2 segments and the left lower lobe and its 4 segments all had relatively similar findings to the right side, although the intensity of the bronchitis was more significant. There was diffuse erythema and hyperemia of the airways. There was mucosal friability in the airways, bled easily. The purulence removed and mucus plugs removed were quite viscid and thick. The specimens were sent to the laboratory. The patient tolerated the procedure well. The bronchoscope withdrawn. There was no immediate complication. MMODL / IJN: [id number] /
[2019-11-19] MEDS ORDERED: SODIUM CHLORIDE 0.9% 1,000 ML IV ONE (11:46)
--- NOTE | 2019-11-19 11:48 | P.PN ---
Subjective Progress Note Date: 11/19/19 This is a 69-year-old male patient of Dr. Holland and Dr. Berumen with a previous medical history significant for paroxysmal atrial fibrillation, hypertension and hypertensive cardiovascular disease, hyperlipidemia, obesity with obstructive sleep apnea, CAD with ST elevation [place] post-PCI of the RCA back in August 2016, advanced COPD with FEV1 of 20% of predicted, chronic hypoxic respiratory failure, diabetes mellitus type 2, remote history of tobacco use. Patient has had previous admissions for acute COPD exacerbation as well as atrial flutter or atrial fibrillation with RVR. Patient most recently was hospitalized at [facility] at which time he was treated for atrial fibrillation with RVR, and pneumonia with lactic acidosis. Patient was treated with Rocephin and azithromycin. Patient was discharged home on -. Patient was instructed to hold eliquis as he was scheduled for heart catheterization on Saturday. Patient went to his punch press operator in [place] and was to be scheduled for heart catheterization today. He then developed fever of 104 at home as well as shortness of breath and productive cough. Patient came into [facility] emergency center for evaluation. Temperature 102.3, heart rate 101 and jumped up to 177, blood pressure 125/70, pulse ox 99%.. He was found to be in A. fib with RVR, influenza and RSV negative. patient was tested for COVID19 which is pending. CBC, CMP unremarkable. Lactic acid 1.9, troponin 0.012, proBNP 1680. Chest x-ray reveals patchy atelectasis at the lung bases is new and increased compared to old exam. No heart failure seen. Repeat Chest x-ray reveals worsening left basilar airspace disease. Primary diagnostic consideration is for unifocal pneumonia. Patient has been admitted to the intensive care unit and consult in place with pulmonary medicine and cardiology consult will be added. front desk monitor is now A. 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 Cardizem drip will be discontinued and home oral medications resumed. 11/10: Patient is seen in the intensive care unit. He is in isolation for possible Covid 19 infection. Case was reviewed with the nurse outside the patient's room. No hands-on physical exam was performed. Patient is currently on O2 at 6 L nasal cannula with pulse ox of 95%, recommended that patient be weaned down on oxygen level. Temperature max today is 100.3. Heart rate in the 90s and low 100s. Blood pressure 119/76. Repeat blood work reveals a platelet count 108, WBC 7.1, hemoglobin 14.8. Sodium 132, potassium 4.6, chloride 102, CO2 24, BUN 10 and creatinine 0.57. Blood culture 2 no growth at 24 hours. COVID-19 testing remains pending. 11/11: Patient remains in the intensive care unit and has now been downgraded to [facility] with telemetry. Patient's less lethargic today. He is oriented 3. He received Lasix yesterday IV and diuresed well. He has had good urine output. CBC shows normal white count and hemoglobin, platelet count 139. Sodium 133, potassium 4.7, chloride 100, CO2 28, BUN 16 and creatinine 0.56. Pro-calcitonin 0.09. Blood culture no growth at 48 hours 2 specimens. Sputum culture is in progress. Repeat chest x-ray reveals small left pleural effusion and left basilar airspace disease as well as stable right infrahilar airspace disease and may represent atelectasis or developing pneumonia. Incentive spirometry and ABGs ordered. Solu-Medrol 60mg will be decreased to every 8 hours. 11/12: Patient is still having shortness of breath currently at 5 L nasal cannula. We will add Lasix 40 mg IV twice daily. Vancomycin can be discontinued at this point. COVID-19 remains pending. Patient remains in isolation. Patient has been afebrile, heart rate 90s, blood pressure 112/70, pulse ox 95% on 5 L nasal cannula. Repeat lab work reveals platelet count 135. Sodium 133, potassium 4.1, BUN 24 and creatinine 0.64. Blood sugars running in the 200s. Serum culture reveals normal fe. Blood culture no growth 2 specimens. 11/13: Patient is having less symptom with shortness of breath no chest pain at this point. Patient is responding well to current IV antibiotic with much lower temperature. Blood sugar was running high last night his Levemir was increased to 20 units twice a day and Humalog up to 5 units before meals meals plus sliding scale a. Patient COVID-19 remain pending at this point patient remain on isolation. Otherwise feeling well, still seen pulmonary with FEV1 of 20% only with a current hypoxia patient is doing much better with less oxygen concentration. Also patient original plan for elective heart catheter on Saturday with his punch press operator at [facility] is delay ~febrile illness and infection is completely clear probably will be rescheduled for at least 2-4 weeks from his discharge date. 11/14: Patient is doing well today continued to be more tired and fatigued his hypoxia has been much better his testing still negative for this point, his bloo d sugar still mildly elevated and titrate his insulin today to keep his random blood sugar below 150. Patient is not having any chest pain or shortness of breath is bilateral pneumonia as well treated and managed currently we'll continue to wean him down on oxygen continue diuretics and switch to oral patient expected discharge probably in 48 hours. 11/15: The patient remains in intensive care unit but is a MedSurg overflow. COVID-19 is positive. Solu-Medrol will be discontinued. Blood sugars have been quite high but expect this to improve now that he is off Solu-Medrol. Patient is currently on antibiotics in the form of cefepime and Levaquin. Ultrasound of the chest revealed minimal left-sided effusion. Patient has been afebrile, heart rate 72, blood pressure 126/72, pulse ox 90% on 5 L nasal cannula. 11/16: Patient remains in the intensive care unit but is MedSurg overflow, Covid 19 positive. Patient has been started on a Zithromax then and Plaquenil by Dr. Ordonez. Patient has been hemodynamically stable with blood pressure 131/76, heart rate 72, afebrile. Pulse ox is running 90 on 5 L nasal cannula. Repeat blood work reveals white count of 11.7, CO2 38, BUN 28 creatinine 0.66. Blood sugars are running between 189 and 209. Blood sugars are improved after IV steroids discontinued. Repeat chest x-ray shows persistent left mid to lower lung edema and/or infiltrate silhouetting left heart border and hemidiaphragm. Worsening left upper lung interstitial edema and/or infiltrates noted. Stable left-sided volume loss. Patient denies having any cough at this time, no sputum production. Patient denies having chest pain. Discharge planning is in progress. Patient at this time is unable to go to subacute rehab due to restrictions regarding Covid testing. booking manager has been in contact with family members and home care including PT have been arranged. Wheelchair will be ordered and arranged by rifle case repairer. Patient may also benefit from walker which family will obtain. We are anticipating discharge in 24-48 hours. Patient has had good urine output and Montemayor catheter will be removed later. 11/17: Patient developed increasing shortness of breath during the evening and oxygen was increased to 15 L high flow nasal cannula. Patient was given a dose of Lasix 40 mg IV push and was weaned down to 8 L nasal cannula. Pulse ox then was running 85% and he is currently up to 10 L nasal cannula. Patient is found sitting up in a chair and appears to be in no acute respiratory distress. Patient has been very reluctant to move. Patient has incentive spirometry and is only reaching 75 ML's. WBC 12.2. Sodium 135, potassium 5.5, chloride 91, CO2 38, P1 20 and creatinine 0.57. Blood sugars run between 106 and 133. Troponin from last night was negative, proBNP 1150. Repeat potassium 3.6. front desk monitor is A. fib controlled rate. Patient is afebrile, heart rate 92, blood pressure 101/70. Patient's has been updated via the phone by Dr. Derek apple. Patient is extremely weak and we will repeat Covid 19 testing in anticipation of need for subacute rehab. Patient's states that she is unable to manage him at home. 11/18: Patient have further decline this morning of his respiratory status with increasing fatigue and is being intubated by Dr. Barry this morning. Chest x- ray reveals worsening opacities occasional left lower lobe and lingula. Worsening infiltrate in the left upper lobe was present. There may be some shift of the mediastinum towards the left. Correlate for atelectasis. Moderate pleural effusion appears stable. Repeat blood work reveals WBC 16.5, sodium 136, potassium 3.6, chloride 90, CO2 40, BUN 13 creatinine 0.72. Repeat troponin negative. ProBNP 732. Patient had a low blood sugar which required treatment this morning of 57. Scheduled Levemir and NovoLog will be discontinued. front desk monitor is atrial fibrillation with controlled rate. Patient's was contacted via phone and updated regarding patient's current condition, need for intubation and guarded prognosis. Objective - Vital Signs Vital signs: Vital Signs Temp 97.6 F 11/19/19 08:00 Pulse 113 H 11/19/19 09:00 Resp 26 H 11/19/19 09:00 BP 119/77 11/19/19 09:00 Pulse Ox 95 11/19/19 09:00 Intake & Output 11/18/19 11/19/19 11/19/19 18:59 06:59 18:59 Intake Total 160 375 Output Total 300 300 60 Balance -140 -300 315 Weight 105 kg Intake: IV 160 375 Azithromycin 500 mg In 250 Sodium Chloride 0.9% 250 ml @ 250 mls/hr IVPB DAILY JOE Rx#:[id number] Potassium Chloride 10 meq 100 In Water For Injection 1 100ml.bag @ 100 mls/hr IVPB Q1H JOE Rx#: [id number] Sodium Chloride 0.9% 160 Output: Urine 300 300 60 Other: Voiding Method Urinal Urinal # Voids 2 6 - Exam Review of Systems Constitutional: Denies chills, Reports fatigue, denies fever, Reports lethargy, Reports malaise, Reports weakness Ears, nose, mouth and throat: Denies dysphagia, Denies nasal congestion, Denies nasal discharge, Denies sore throat, Denies vertigo Cardiovascular: Reports dyspnea on exertion, Reports worsening shortness of breath, Denies chest pain, Denies leg edema Respiratory: Reports cough with sputum, Reports dyspnea, Reports respiratory infections, Denies cough, Denies excessive sputum, Denies hemoptysis Gastrointestinal: Denies abdominal pain, Denies diarrhea, Denies nausea, Denies vomiting Genitourinary: Denies dysuria, Denies urinary frequency, Denies urinary retention Musculoskeletal: Reports muscle weakness, Denies frequent falls, Denies gait dysfunction, Denies myalgias Integumentary: Denies pruritus, Denies rash, Denies wounds Neurological: Denies change in mentation, Denies change in speech, Denies numbness, Denies weakness Psychiatric: Denies anxiety, Denies depression Endocrine: Reports fatigue, Denies weight change Physical examination- Gen: This is a 69-year-old man. Patient and ICU bed with moderate respiratory distress. Patient appears tired and fatigued. Patient is being intubated. HEENT: Head is atraumatic, normocephalic. Pupils equal, round. Sclerae is anicteric. NECK: Supple. No JVD. No lymphadenopathy. No thyromegaly. LUNGS: Rhonchi. Positive intercostal retractions. HEART: Irregularly irregular. Systolic ejection murmur. ABDOMEN: Soft. Bowel sounds are present. No masses. No tenderness. Montemayor catheter resumed. EXTREMITIES: No pedal edema. No calf tenderness. NEUROLOGICAL: Patient is awake, alert and oriented x3. Cranial nerves 2 through 12 are grossly intact. - Labs CBC & Chem 7: 11/19/19 05:30 11/19/19 05:39 Labs: Abnormal Lab Results - Last 24 Hours (Table) 11/18/19 11/18/19 11/18/19 Range/Units 04:02 11:43 20:29 WBC (3.8-10.6) k/uL Neutrophils # (1.3-7.7) k/uL Lymphocytes # (1.0-4.8) k/uL ABG pH (7.35-7.45) ABG pO2 (83-108) mmHg ABG HCO3 (21-25) mmol/L ABG Total CO2 (19-24) mmol/L ABG O2 Saturation (94-97) % Sodium (137-145) mmol/L Chloride (98-107) mmol/L Carbon Dioxide (22-30) mmol/L BUN (9-20) mg/dL Glucose (74-99) mg/dL POC Glucose (mg/dL) 133 H 100 H (75-99) mg/dL Hemoglobin A1c 8.9 H (4.0-6.0) % 11/19/19 11/19/19 11/19/19 Range/Units 02:06 05:30 05:39 WBC 16.5 H (3.8-10.6) k/uL Neutrophils # 14.7 H (1.3-7.7) k/uL Lymphocytes # 0.8 L (1.0-4.8) k/uL ABG pH 7.57 H* (7.35-7.45) ABG pO2 45 L* (83-108) mmHg ABG HCO3 40 H* (21-25) mmol/L ABG Total CO2 41 H (19-24) mmol/L ABG O2 Saturation 83.6 L (94-97) % Sodium 136 L (137-145) mmol/L Chloride 90 L (98-107) mmol/L Carbon Dioxide 40 H (22-30) mmol/L BUN 30 H (9-20) mg/dL Glucose 57 L (74-99) mg/dL POC Glucose (mg/dL) (75-99) mg/dL Hemoglobin A1c (4.0-6.0) % 11/19/19 11/19/19 11/19/19 Range/Units 05:42 06:16 06:46 WBC (3.8-10.6) k/uL Neutrophils # (1.3-7.7) k/uL Lymphocytes # (1.0-4.8) k/uL ABG pH 7.56 H* (7.35-7.45) ABG pO2 60 L (83-108) mmHg ABG HCO3 39 H (21-25) mmol/L ABG Total CO2 40 H (19-24) mmol/L ABG O2 Saturation 91.9 L (94-97) % Sodium (137-145) mmol/L Chloride (98-107) mmol/L Carbon Dioxide (22-30) mmol/L BUN (9-20) mg/dL Glucose (74-99) mg/dL POC Glucose (mg/dL) 66 L 115 H (75-99) mg/dL Hemoglobin A1c (4.0-6.0) % Assessment and Plan Plan: 1. Acute febrile illness most likely secondary to bibasilar pneumonia, gram- negative pneumonia and COVID-19. Atrovent nebulizer treatment every 6 hours as needed, Symbicort twice daily, cefepime, Levaquin 500 mg daily. Continue IV Lasix 40 mg every 12 hours, prednisone 30 mg daily. Consults with Dr. Lock and Dr. Ordonez appreciated. Patient has been started on Plaquenil and azithromycin. 2. Acute on chronic hypoxic respiratory failure secondary to Covid 19. Vent management per Dr. Wright. 3. A. fib with RVR, chronic atrial fibrillation. Heart rate is currently controlled. Patient continued on eliquis 5 mg twice daily, digoxin 250 g daily, Cardizem oral 90 mg 3 times daily, Lopressor 25 mg twice daily. Cardiology consult. 4. Advanced COPD. Continue Atrovent, Pulmicort twice daily, consult with pulmonary medicine 5. Obstructive sleep apnea. 6. Known coronary artery disease post angioplasty and stent placement. Patient was scheduled to undergo catheterization at [facility]. 7. Hypertension hypertensive cardiovascular disease. 8. Abdominal aortic aneurysm monitored by vascular surgery. 9. GI prophylaxis. Protonix. 10. DVT prophylaxis. Eliquis. 11. Hyperglycemia secondary to steroids. Scheduled Levemir and NovoLog will be discontinued. Continue NovoLog scale only.. Prognosis guarded. Discharge plan: To be determined. Impression and plan of care have been directed as dictated by the signing physician. Joy Baxter nurse practitioner acting as scribe for signing physician.
[2019-11-19 11:57] LABS: Glucose,Whole Blood 89 mg/dL (75-99)
[2019-11-19] MEDS: APIXABAN 5 MG TAB PO SCH ×2 (12:02→21:02)
[2019-11-19] MEDS: DILTIAZEM ORAL 30 MG TAB PO SCH ×3 (12:02→23:03)
[2019-11-19] MEDS: ASPIRIN 81 MG PO SCH (12:02)
[2019-11-19] MEDS: predniSONE 10 MG TAB PO SCH (12:02)
[2019-11-19] MEDS: DIGOXIN 250 MCG TAB PO SCH (12:03)
[2019-11-19] MEDS: HYDROXYCHLOROQUINE ORAL SUSP 200 MG/8 ML ORAL.SYRG PO SCH ×2 (12:03→21:03)
--- NOTE | 2019-11-19 12:06 | XR ---
EXAMINATION TYPE: XR chest 1V portable DATE OF EXAM: 11/19/2019 COMPARISON: 11/19/2019 INDICATION: Status post intubation and line placement TECHNIQUE: Single frontal view of the chest is obtained. FINDINGS: The heart size is normal. Patient is rotated to the left. The mediastinum appears to be shifted towa rds the left. The pulmonary vasculature is normal. There is a left lower lobe infiltrate. There is silhouetting the diaphragm. Moderate left pleural eff usion may be present. This may be slightly improved from prior study There is been insertion of a left central venous catheter with the tip in the proximal right atrium. No pneumothorax is evident. The endotracheal tube has been placed with tip above the bret. Nasogast brenna tube is been placed with the tip in the left upper quadrant of the abdomen out of the field-of-vi ew. IMPRESSION: 1. Moderate left pleural effusion. 2. Lines and catheters discussed above. 3. Placement of a left central venous catheter with the tip in the proximal right atrium. No pneumoth orax is evident.
--- NOTE | 2019-11-19 12:13 | PN ---
PROGRESS NOTE DATE OF SERVICE: 11/19/2019 CRITICAL CARE TIME: 34 minutes This is a 69-year-old male who was admitted back on November 09. He came in with a COPD exacerbation complicated by left-sided pneumonia. The patient also suffers from paroxysmal atrial fibrillation with RVR, CAD, DJD, sleep apnea syndrome, and was positive for COVID-19 virus. Unfortunately, through the night, he took a turn for the worse. I did place him on BiPAP and increase his FiO2. This morning's chest x-ray showed nearly complete opacification of the left chest. The patient obviously had developed a mucus plug. Anyway, the patient was electively intubated by Anesthesia. A #8 endotracheal tube was placed. After that, I did bronchoscopy and removed a large mucus plug from the left mainstem bronchus. Samples were sent to the laboratory for analysis. In addition, an art line was placed and a central line was placed. Previously he was on BiPAP at 12/5 and 50%. He was not getting any IV fluids. The patient currently is on both Zithromax and Plaquenil for his COVID-19 infection. Hopefully, the intubation and bronchoscopy will help him turn the corner. He seen currently, Dr. Wayne as his hospital doctor. Current vital signs are reviewed, temperature 97.6, heart rate 113, respiratory rate 26, blood pressure 119/77, mean 91, saturations are 95% on the ventilator at 100% and 5 of PEEP. Appears in no acute distress. Currently sedated and paralyzed. HEENT: Examination is grossly unremarkable. There is no orally placed endotracheal tube. NECK: Supple. Full range of motion. No adenopathy. Neck veins are flat. CARDIOVASCULAR: Examination reveals regular rhythm and rate. He is tachycardic. Heart rate about 113. S1, S2 normal. No murmur. LUNGS: Reveal diffuse coarse rhonchi bilaterally. No wheezes or crackles. ABDOMEN: Soft. Bowel sounds are not noted. EXTREMITIES: Intact. No significant edema. SKIN: Without rash. NEUROLOGIC: Examination is difficult to assess because he is currently heavily sedated. CHEST X-RAY: From this morning shows worsening opacification of the left lung and lingula. The left upper lobe also was showing worsening infiltrate. I was concerned about a mucus plug, which is why we did what we did. Microbiologic studies are negative say for the COVID-19 positive serology. LAB DATA: Reviewed. White count 16.5, hemoglobin 17, hematocrit 50.5, platelet count 205,000. Gases from this morning show a pO2 of 60, pCO2 of 44, pH 7.56. That was on the BiPAP at 80%. Sodium 136, potassium 3.6, chloride 90, CO2 is 40 and anion gap is 6. BUN and creatinine were 30 and 0.72. N terminal proBNP was 732. Blood gases post intubation and on 100% and 5 of PEEP shows a pO2 of 93, pCO2 of 52, and a pH of 7.48. MEDICATIONS: Reviewed. Currently, his medications are appropriate including albuterol inhaler, Eliquis, aspirin, Lipitor, Zithromax Symbicort, digoxin, Cardizem, p.r.n. Lasix. hydroxychloroquine, insulin, metoprolol, Protonix, potassium replacement, and prednisone. ASSESSMENT: 1. Zeeshan respiratory failure with acute and worsening hypoxemia, requiring intubation and mechanical ventilation and subsequent bronchoscopy today, November 19, 2019. 2. Chronic obstructive pulmonary disease exacerbation complicated by left lower lobe pneumonia as well as COVID-19 infection, with admission on November 10, 2019. 3. Paroxysmal atrial fibrillation with RVR. 4. Coronary artery disease. 5. History of degenerative joint disease. 6. History of sleep apnea syndrome. 7. Obesity. 8. Chronic hypoxemic respiratory failure. PLAN: Currently, the patient is on appropriate medications. Medications are reviewed. The patient will be started on tube feeds. He will have a repeat blood gas at 2 o'clock today. A central line was placed. Art line was placed. I would like to keep him on the ventilator overnight. A BAL was performed. Mucous plug was removed. Samples were sent to the laboratory for analysis. Prognosis is guarded. MMODL / IJN: [id number] /
[2019-11-19] MEDS: METOPROLOL TARTRATE 25 MG TAB PO SCH ×2 (14:29→21:02)
[2019-11-19] MEDS: PROPOFOL 1,000 MG in EMPTY BAG 1 BAG IV SCH ×2 (14:33→21:02)
[2019-11-19 15:48] LABS: Appearance,BF Cloudy; Color,BF Colorless; Nucleated Cells, Body Fluid 28700 /uL; Polynuclear WBC,Body Fluid 100 %; RBC, Body Fluid 2100 /uL
[2019-11-19 17:18] LABS: Glucose,Whole Blood 108 mg/dL (75-99)
[2019-11-19] MEDS: CHLORHEXIDINE GLUCONATE 15 ML CUP MUCOUS MEM SCH (21:02)
[2019-11-19] MEDS: LACTATED RINGERS 1,000 ML IV SCH (21:03)
--- NOTE | 2019-11-19 21:14 | PN ---
PROGRESS NOTE DATE OF SERVICE: 11/19/2019 REASON FOR FOLLOWUP: Acute COVID-19 pneumonia. INTERVAL HISTORY: The patient went into respiratory distress this morning. The patient ended up getting intubated. The patient also had bronchoscopy with evidence of mucus plugging. The patient tolerated the procedure. He is currently hemodynamically stable, not requiring any pressor support. FiO2 is currently at 80%. No other changes noted in his clinical condition. PHYSICAL EXAMINATION: Blood pressure 102/59 with a pulse of 102, temperature 98.3. He is 95% on room air. General description is an elderly male lying in bed in no distress. RESPIRATORY SYSTEM: Unlabored breathing with decreased intensity of breath sounds. No wheeze. HEART: S1, S2. Regular rate and rhythm. ABDOMEN: Soft. No tenderness. LABS: Hemoglobin 16, white count 16.5. BUN of 30, creatinine 0.72. DIAGNOSTIC IMPRESSION AND PLAN: Patient with acute respiratory failure multifactorial in this patient who did have acute COVID- 19 pneumonia. This patient did have evidence of mucus plugging and worsening respiratory failure requiring intubation and bronchoscopy. Will wait for the culture to finalize. The patient is currently covered with Zithromax and Plaquenil; to continue. Monitor his clinical course closely. MMODL / IJN: [id number] / MTDD
[2019-11-19 23:58] LABS: Glucose,Whole Blood 162 mg/dL (75-99)
[2019-11-20] MEDS: methylPREDNISolone SOD SUCCI 40 MG/ML 1 ML VIAL IV SCH ×4 (00:14→17:06)
[2019-11-20] MEDS: INSULIN ASPART (NovoLOG) 100 UNIT/ML VIAL SQ SCH ×7 (00:14→20:30)
[2019-11-20] MEDS: LACTATED RINGERS 1,000 ML IV SCH ×3 (03:08→19:22)
[2019-11-20] MEDS: PROPOFOL 1,000 MG in EMPTY BAG 1 BAG IV SCH ×3 (05:18→19:21)
[2019-11-20 05:20] LABS: ABG Base Excess 10.5 mmol/L; ABG HCO3 35 mmol/L (21-25); ABG Oxygen Saturation 96.1 % (94-97); ABG PCO2 51 mmHg (35-45); ABG PH 7.44 (7.35-7.45); ABG PO2 83 mmHg (83-108); ABG TCO2 36 mmol/L (19-24)
[2019-11-20 05:21] LABS: Allen Test Performed? no
[2019-11-20 05:32] LABS: Basophils % (A) 0 %; Eosinophils % (A) 0 %; HCT 33.4 % (39.0-53.0); Lymphocytes # (A) 0.3 k/uL (1.0-4.8); Lymphocytes % (A) 3 %; MCH 32.5 pg (25.0-35.0); MCHC 33.4 g/dL (31.0-37.0); MCV 97.3 fL (80.0-100.0); Mean Platelet Volume 9.4; Monocytes # (A) 0.5 k/uL (0-1.0); Monocytes % (A) 5 %; Neutrophils # (A) 8.6 k/uL (1.3-7.7); Neutrophils % (A) 91 %; Platelet Count 137 k/uL (150-450); RBC 3.43 m/uL (4.30-5.90); RDW 12.7 % (11.5-15.5); WBC 9.5 k/uL (3.8-10.6)
[2019-11-20 05:38] LABS: HGB 11.1 gm/dL (13.0-17.5)
[2019-11-20 05:40] LABS: African American GFR (CKD) >90 (>60 ml/min/1.73 sqM); Anion Gap 6 mmol/L; Blood Urea Nitrogen 39 mg/dL (9-20); Calcium 8.7 mg/dL (8.4-10.2); Carbon Dioxide 35 mmol/L (22-30); Chloride 94 mmol/L (98-107); Glucose 221 mg/dL (74-99); Non-African American GFR(CKD) >90 (>60 ml/min/1.73 sqM); Potassium 4.4 mmol/L (3.5-5.1); Sodium 135 mmol/L (137-145)
[2019-11-20 06:37] LABS: Glucose,Whole Blood 211 mg/dL (75-99)
[2019-11-20] MEDS: SYMBICORT 160-4.5 MCG INHALER INHALATION SCH ×2 (07:09→19:29)
[2019-11-20] MEDS: ALBUTEROL INHALER 60 PUFF/8 GM INHALER (MHU) INHALATION SCH ×4 (07:09→19:29)
--- NOTE | 2019-11-20 08:03 | XR ---
EXAMINATION TYPE: XR chest 1V portable DATE OF EXAM: 11/20/2019 COMPARISON: 11/19/2019 HISTORY: Endotracheal tube placement. Ventilatory dependent breast through failure. TECHNIQUE: Single frontal view of the chest is obtained. FINDINGS: Endotracheal and enteric tubes are overall similar in position however endotracheal tube co uld be advanced approximately 3 cm for optimal placement. Slightly improved small left pleural effusi on and associated left basilar airspace disease. Flattening of the right hemidiaphragm indicative of underlying COPD with overall pulmonary hyperinflation. Cardiomediastinal silhouette is shifted to the left secondary to patient positioning and possibly due to left-sided atelectasis. Cardiomediastinal silhouette size is obscured. Right lung remains well aerated. No acute osseous pathology. IMPRESSION: 1. Endotracheal tube is slightly high riding and could be advanced approximately 3 cm for optimal brittany cement. 2. Slightly improved small left pleural effusion and left basilar airspace disease, pneumonia versus atelectasis.
[2019-11-20 08:43] LABS: Glucose,Whole Blood 218 mg/dL (75-99)
[2019-11-20] MEDS: METOPROLOL TARTRATE 25 MG TAB PO SCH ×2 (10:07→19:59)
[2019-11-20] MEDS: APIXABAN 5 MG TAB PO SCH ×2 (10:08→19:59)
[2019-11-20] MEDS: CHLORHEXIDINE GLUCONATE 15 ML CUP MUCOUS MEM SCH ×2 (10:08→19:59)
[2019-11-20] MEDS: ASPIRIN 81 MG PO SCH (10:08)
[2019-11-20] MEDS: ZINC SULFATE 220 MG CAP PO SCH (10:08)
[2019-11-20] MEDS: DIGOXIN 250 MCG TAB PO SCH (10:08)
[2019-11-20] MEDS: AZITHROMYCIN 500 MG in SODIUM CHLORIDE 0.9% 250 ML IVPB SCH (10:09)
[2019-11-20] MEDS: PANTOPRAZOLE 40 MG/10 ML VIAL IVP SCH (10:10)
--- NOTE | 2019-11-20 10:13 | P.PN ---
Subjective Progress Note Date: 11/20/19 This is a 69-year-old male patient of Dr. Holland and Dr. Berumen with a previous medical history significant for paroxysmal atrial fibrillation, hypertension and hypertensive cardiovascular disease, hyperlipidemia, obesity with obstructive sleep apnea, CAD with ST elevation AL post-PCI of the RCA back in August 2016, advanced COPD with FEV1 of 20% of predicted, chronic hypoxic respiratory failure, diabetes mellitus type 2, remote history of tobacco use. Patient has had previous admissions for acute COPD exacerbation as well as atrial flutter or atrial fibrillation with RVR. Patient most recently was hospitalized at [facility] at which time he was treated for atrial fibrillation with RVR, and pneumonia with lactic acidosis. Patient was treated with Rocephin and azithromycin. Patient was discharged home on -. Patient was instructed to hold eliquis as he was scheduled for heart catheterization on Saturday. Patient went to his tomato paste maker in [place] and was to be scheduled for heart catheterization today. He then developed fever of 104 at home as well as shortness of breath and productive cough. Patient came into [facility] emergency center for evaluation. Temperature 102.3, heart rate 101 and jumped up to 177, blood pressure 125/70, pulse ox 99%.. He was found to be in A. fib with RVR, influenza and RSV negative. patient was tested for COVID19 which is pending. CBC, CMP unremarkable. Lactic acid 1.9, troponin 0.012, proBNP 1680. Chest x-ray reveals patchy atelectasis at the lung bases is new and increased compared to old exam. No heart failure seen. Repeat Chest x-ray reveals worsening left basilar airspace disease. Primary diagnostic consideration is for unifocal pneumonia. Patient has been admitted to the intensive care unit and consult in place with pulmonary medicine and cardiology consult will be added. x ray service technician is now A. 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 Cardizem drip will be discontinued and home oral medications resumed. 11/10: Patient is seen in the intensive care unit. He is in isolation for possible Covid 19 infection. Case was reviewed with the nurse outside the patient's room. No hands-on physical exam was performed. Patient is currently on O2 at 6 L nasal cannula with pulse ox of 95%, recommended that patient be weaned down on oxygen level. Temperature max today is 100.3. Heart rate in the 90s and low 100s. Blood pressure 119/76. Repeat blood work reveals a platelet count 108, WBC 7.1, hemoglobin 14.8. Sodium 132, potassium 4.6, chloride 102, CO2 24, BUN 10 and creatinine 0.57. Blood culture 2 no growth at 24 hours. COVID-19 testing remains pending. 11/11: Patient remains in the intensive care unit and has now been downgraded to [facility] with telemetry. Patient's less lethargic today. He is oriented 3. He received Lasix yesterday IV and diuresed well. He has had good urine output. CBC shows normal white count and hemoglobin, platelet count 139. Sodium 133, potassium 4.7, chloride 100, CO2 28, BUN 16 and creatinine 0.56. Pro-calcitonin 0.09. Blood culture no growth at 48 hours 2 specimens. Sputum culture is in progress. Repeat chest x-ray reveals small left pleural effusion and left basilar airspace disease as well as stable right infrahilar airspace disease and may represent atelectasis or developing pneumonia. Incentive spirometry and ABGs ordered. Solu-Medrol 60mg will be decreased to every 8 hours. 11/12: Patient is still having shortness of breath currently at 5 L nasal cannula. We will add Lasix 40 mg IV twice daily. Vancomycin can be discontinued at this point. COVID-19 remains pending. Patient remains in isolation. Patient has been afebrile, heart rate 90s, blood pressure 112/70, pulse ox 95% on 5 L nasal cannula. Repeat lab work reveals platelet count 135. Sodium 133, potassium 4.1, BUN 24 and creatinine 0.64. Blood sugars running in the 200s. Serum culture reveals normal fe. Blood culture no growth 2 specimens. 11/13: Patient is having less symptom with shortness of breath no chest pain at this point. Patient is responding well to current IV antibiotic with much lower temperature. Blood sugar was running high last night his Levemir was increased to 20 units twice a day and Humalog up to 5 units before meals meals plus sliding scale a. Patient COVID-19 remain pending at this point patient remain on isolation. Otherwise feeling well, still seen pulmonary with FEV1 of 20% only with a current hypoxia patient is doing much better with less oxygen concentration. Also patient original plan for elective heart catheter on Saturday with his tomato paste maker at [facility] is delay ~febrile illness and infection is completely clear probably will be rescheduled for at least 2-4 weeks from his discharge date. 11/14: Patient is doing well today continued to be more tired and fatigued his hypoxia has been much better his testing still negative for this point, his bloo d sugar still mildly elevated and titrate his insulin today to keep his random blood sugar below 150. Patient is not having any chest pain or shortness of breath is bilateral pneumonia as well treated and managed currently we'll continue to wean him down on oxygen continue diuretics and switch to oral patient expected discharge probably in 48 hours. 11/15: The patient remains in intensive care unit but is a MedSurg overflow. COVID-19 is positive. Solu-Medrol will be discontinued. Blood sugars have been quite high but expect this to improve now that he is off Solu-Medrol. Patient is currently on antibiotics in the form of cefepime and Levaquin. Ultrasound of the chest revealed minimal left-sided effusion. Patient has been afebrile, heart rate 72, blood pressure 126/72, pulse ox 90% on 5 L nasal cannula. 11/16: Patient remains in the intensive care unit but is MedSurg overflow, Covid 19 positive. Patient has been started on a Zithromax then and Plaquenil by Dr. Ordonez. Patient has been hemodynamically stable with blood pressure 131/76, heart rate 72, afebrile. Pulse ox is running 90 on 5 L nasal cannula. Repeat blood work reveals white count of 11.7, CO2 38, BUN 28 creatinine 0.66. Blood sugars are running between 189 and 209. Blood sugars are improved after IV steroids discontinued. Repeat chest x-ray shows persistent left mid to lower lung edema and/or infiltrate silhouetting left heart border and hemidiaphragm. Worsening left upper lung interstitial edema and/or infiltrates noted. Stable left-sided volume loss. Patient denies having any cough at this time, no sputum production. Patient denies having chest pain. Discharge planning is in progress. Patient at this time is unable to go to subacute rehab due to restrictions regarding Covid testing. manager culture has been in contact with family members and home care including PT have been arranged. Wheelchair will be ordered and arranged by adult protective caseworker. Patient may also benefit from walker which family will obtain. We are anticipating discharge in 24-48 hours. Patient has had good urine output and Mont[place]or catheter will be removed later. 11/17: Patient developed increasing shortness of breath during the evening and oxygen was increased to 15 L high flow nasal cannula. Patient was given a dose of Lasix 40 mg IV push and was weaned down to 8 L nasal cannula. Pulse ox then was running 85% and he is currently up to 10 L nasal cannula. Patient is found sitting up in a chair and appears to be in no acute respiratory distress. Patient has been very reluctant to move. Patient has incentive spirometry and is only reaching 75 ML's. WBC 12.2. Sodium 135, potassium 5.5, chloride 91, CO2 38, P1 20 and creatinine 0.57. Blood sugars run between 106 and 133. Troponin from last night was negative, proBNP 1150. Repeat potassium 3.6. x ray service technician is A. fib controlled rate. Patient is afebrile, heart rate 92, blood pressure 101/70. Patient's has been updated via the phone by Dr. Derek apple. Patient is extremely weak and we will repeat Covid 19 testing in anticipation of need for subacute rehab. Patient's states that she is unable to manage him at home. 11/18: Patient have further decline this morning of his respiratory status with increasing fatigue and is being intubated by Dr. Barry this morning. Chest x- ray reveals worsening opacities occasional left lower lobe and lingula. Worsening infiltrate in the left upper lobe was present. There may be some shift of the mediastinum towards the left. Correlate for atelectasis. Moderate pleural effusion appears stable. Repeat blood work reveals WBC 16.5, sodium 136, potassium 3.6, chloride 90, CO2 40, BUN 13 creatinine 0.72. Repeat troponin negative. ProBNP 732. Patient had a low blood sugar which required treatment this morning of 57. Scheduled Levemir and NovoLog will be discontinued. x ray service technician is atrial fibrillation with controlled rate. Patient's was contacted via phone and updated regarding patient's current condition, need for intubation and guarded prognosis. 11/19: Patient remains in the intensive care unit intubated and on mechanical ventilation. Patient has been afebrile, heart rate 85, blood pressure 129/59. Patient has not required vasopressor support. WBC 9.5, hemoglobin 11.1, platelet count 137. Sodium 135, potassium 4.4, chloride 94, BUN 39 creatinine 0.75. Blood sugars are running in the 200s. All scheduled insulin was discontinued due to hypoglycemia yesterday. Patient is now on LR and Solu- Medrol, Levemir 10 units added back in. Patient is also on insulin scale. Yesterday, besides being intubated, patient underwent bronchoscopy with airway examination, therapeutic lavage, BAL of the left lung. There was noted mild bronchitis and on the left side a huge mucous plug completely obstructing the proximal left main stem was removed. Repeat chest x-ray this morning reveals endotracheal tube slightly high riding could be advanced. Slightly improved small left pleural effusion and left basilar airspace disease. Pneumonia versus atelectasis. Patient remains on azithromycin, Plaquenil and a zinc. Patient is also followed by infectious disease. Cardiology has signed off. Patient's case was discussed with his nurse. No physical exam done in order to limit exposure to COVID-19 patient while intubated. Objective - Vital Signs Vital signs: Vital Signs Temp 98.7 F 11/20/19 04:00 Pulse 95 11/20/19 06:00 Resp 20 11/20/19 06:00 BP 133/74 11/19/19 11:00 Pulse Ox 96 11/20/19 06:00 Intake & Output 11/19/19 11/20/19 11/20/19 18:59 06:59 18:59 Intake Total 1785 2011.69 145 Output Total 310 620 40 Balance 1475 1391.69 105 Weight 105 kg 107.2 kg Intake: IV 1715 1500 125 Azithromycin 500 mg In 250 Sodium Chloride 0.9% 250 ml @ 250 mls/hr IVPB DAILY JOE Rx#:[id number] Lactated Ringers 1,000 ml 1500 125 @ 125 mls/hr IV .Q8H JOE Rx#:[id number] Potassium Chloride 10 meq 100 In Water For Injection 1 100ml.bag @ 100 mls/hr IVPB Q1H JOE Rx#: [id number] Sodium Chloride 0.9% 1340 Intake, IV Titration 181.69 Amount Propofol 1,000 mg In 181.69 Empty Bag 1 bag @ Titrate IV .Q0M JOE Rx#: [id number] Tube Feeding 40 240 20 Other 30 90 Output: Urine 310 620 40 Other: Voiding Method Indwelling Catheter Indwelling Catheter ABP, PAP, CO, CI - Last Documented Arterial Blood Pressure 129/59 - Exam Review of Systems unable to be obtained due to sedation and intubation Physical examination- Gen: This is a 69-year-old man. Patient and ICU bed with no respiratory distress. HEENT: Head is atraumatic, normocephalic. Oral ET and gastric tube in place. Physical exam deferred due to COVID-19 isolation. - Labs CBC & Chem 7: 11/20/19 05:15 11/20/19 05:15 Labs: Abnormal Lab Results - Last 24 Hours (Table) 11/19/19 11/19/19 11/19/19 Range/Units 05:30 11:18 17:17 WBC 16.5 H (3.8-10.6) k/uL RBC (4.30-5.90) m/uL Hgb (13.0-17.5) gm/dL Hct (39.0-53.0) % Plt Count (150-450) k/uL Neutrophils # 14.7 H (1.3-7.7) k/uL Lymphocytes # 0.8 L (1.0-4.8) k/uL ABG pH 7.48 H (7.35-7.45) ABG pCO2 52 H (35-45) mmHg ABG HCO3 38 H (21-25) mmol/L ABG Total CO2 40 H (19-24) mmol/L Sodium (137-145) mmol/L Chloride (98-107) mmol/L Carbon Dioxide (22-30) mmol/L BUN (9-20) mg/dL Glucose (74-99) mg/dL POC Glucose (mg/dL) 108 H (75-99) mg/dL 11/19/19 11/20/19 11/20/19 Range/Units 23:56 05:15 05:15 WBC (3.8-10.6) k/uL RBC 3.43 L (4.30-5.90) m/uL Hgb 11.1 L D (13.0-17.5) gm/dL Hct 33.4 L (39.0-53.0) % Plt Count 137 L (150-450) k/uL Neutrophils # 8.6 H (1.3-7.7) k/uL Lymphocytes # 0.3 L (1.0-4.8) k/uL ABG pH (7.35-7.45) ABG pCO2 (35-45) mmHg ABG HCO3 (21-25) mmol/L ABG Total CO2 (19-24) mmol/L Sodium 135 L (137-145) mmol/L Chloride 94 L (98-107) mmol/L Carbon Dioxide 35 H (22-30) mmol/L BUN 39 H (9-20) mg/dL Glucose 221 H (74-99) mg/dL POC Glucose (mg/dL) 162 H (75-99) mg/dL 11/20/19 11/20/19 Range/Units 05:15 06:35 WBC (3.8-10.6) k/uL RBC (4.30-5.90) m/uL Hgb (13.0-17.5) gm/dL Hct (39.0-53.0) % Plt Count (150-450) k/uL Neutrophils # (1.3-7.7) k/uL Lymphocytes # (1.0-4.8) k/uL ABG pH (7.35-7.45) ABG pCO2 51 H (35-45) mmHg ABG HCO3 35 H (21-25) mmol/L ABG Total CO2 36 H (19-24) mmol/L Sodium (137-145) mmol/L Chloride (98-107) mmol/L Carbon Dioxide (22-30) mmol/L BUN (9-20) mg/dL Glucose (74-99) mg/dL POC Glucose (mg/dL) 211 H (75-99) mg/dL Microbiology - Last 24 Hours (Table) 11/19/19 10:28 Acid Fast Bacilli Smear - Final Bronchoalviolar Lavage - Left Acid Fast Bacilli Culture - Preliminary 11/19/19 10:28 Gram Stain - Preliminary Bronchoalviolar Lavage - Left Bronchial Washings Culture - Preliminary 11/19/19 10:28 Fungal Culture - Preliminary Bronchoalviolar Lavage - Left Assessment and Plan Plan: 1. Acute febrile illness most likely secondary to bibasilar pneumonia, gram- negative pneumonia and COVID-19. Atrovent nebulizer treatment every 6 hours as needed, Symbicort twice daily, Solu-Medrol 40 mg IV every 6 hours. Consults with pulmonary medicine and Dr. Ordonez appreciated. Patient has been started on Plaquenil, azithromycin and zinc. 2. Acute on chronic hypoxic respiratory failure secondary to Covid 19. Vent management per Dr. Barry. 3. A. fib with RVR, chronic atrial fibrillation. Heart rate is currently controlled. Patient continued on eliquis 5 mg twice daily, digoxin 250 g daily, Cardizem oral 90 mg 3 times daily, Lopressor 25 mg twice daily. Cardiology consult appreciated. Cardiology is following on an as-needed basis only.. 4. Advanced COPD. Continue Atrovent, Pulmicort twice daily, consult with pulmonary medicine 5. Obstructive sleep apnea. 6. Known coronary artery disease post angioplasty and stent placement. Patient was scheduled to undergo catheterization at [facility]. 7. Hypertension hypertensive cardiovascular disease. 8. Abdominal aortic aneurysm monitored by vascular surgery. 9. GI prophylaxis. Protonix. 10. DVT prophylaxis. Eliquis. 11. Hyperglycemia secondary to steroids. Resume Levemir 10 units daily while on steroids. Continue NovoLog scale only. Prognosis guarded. Discharge plan: To be determined. Impression and plan of care have been directed as dictated by the signing physician. Joy Baxter nurse practitioner acting as scribe for signing physician.
[2019-11-20] MEDS: HYDROXYCHLOROQUINE ORAL SUSP 200 MG/8 ML ORAL.SYRG PO SCH ×2 (10:51→20:29)
--- NOTE | 2019-11-20 11:20 | PN ---
PROGRESS NOTE PULMONARY/CRITICAL CARE PROGRESS NOTE: DATE OF SERVICE: November 20, 2019. CRITICAL CARE TIME: 35 minutes. This is a 69-year-old male who was admitted back on November 09. He initially came in with COPD exacerbation complicated by left-sided pneumonia. The patient did test positive for COVID-19. The patient also suffers from paroxysmal atrial fibrillation with RVR, CAD, DJD, sleep apnea syndrome, and some other medical problems. Unfortunately, about 48 hours ago, he took a turn for the worse. Yesterday, he was intubated. We lined him with both the central line and art line. In addition, because of a mucus plug in the left mainstem, he underwent bronchoscopy. The patient's chest x- ray is about the same yesterday as it was today. There is volume loss on the left side and opacification in the left lower lobe, but overall his chest x-ray is a bit improved. He remains on positive-pressure ventilation. The patient is on the volume assist-control mode rate of 20, tidal volume 450, FiO2 of 60%, PEEP of 10. Blood gases show a pO2 of 82, pCO2 of 51 and a pH of 7.4. He is getting lactated Ringer's at 125 mL an hour, Diprivan at 20 mcg/kg per minute and Vital high-protein at 31 with a goal of 31. He is also getting zinc, Zithromax and Plaquenil as per protocol. Overall, I think his condition is a bit more stable than it was yesterday and certainly his chest x-ray is a bit better. PHYSICAL EXAMINATION: VITAL SIGNS: Current vital signs are reviewed. The temperature is 98.7, heart rate 95, respiratory rate 20, blood pressure 129/59. Central venous pressure is 3, saturations are 96%. GENERAL: Appears in no acute distress. He is heavily sedated. HEENT: Examination is grossly unremarkable. There is an orally placed endotracheal tube. NECK: Supple. Full range of motion. No adenopathy or thyromegaly. Neck veins are flat. CARDIOVASCULAR: Examination reveals regular rhythm and rate. Heart rate 95. S1, S2 normal. No S3, S4, or murmur. LUNGS: Reveal coarse bilateral breath sounds. Breath sounds are equal. No crackles. ABDOMEN: Soft. Bowel sounds are heard. EXTREMITIES: Are intact. No significant edema. SKIN: Without rash. NEUROLOGIC: Examination is difficult to assess. Microbiologic studies so far all negative including the BAL results. LABS: Labs are reviewed. White count 9.51, hemoglobin 11.1, hematocrit 33.4, platelet count 137,000. Blood gases have been reviewed included a pO2 of 83, pCO2 of 51 and a pH of 7.44. These blood gases are consistent with a mixed acid-base disturbance including relative hypoxemia and a mixed acid-base disturbance including a respiratory acidosis combined with a metabolic alkalosis. His sodium is 135, potassium 4.4, chloride 94, CO2 of 35. Anion gap is 6. BUN and creatinine were 39 and 0.75 suggesting some prerenal azotemia. Chest x-ray is reviewed. As read by the radiologist, suggest a small left-sided pleural effusion. Left basilar airspace disease. MEDICATIONS: Medications are reviewed. ASSESSMENT: 1. Acute hypoxemic respiratory failure requiring intubation and mechanical ventilation with subsequent bronchoscopy all on November 19, 2019. 2. Mucus plug, left mainstem causing volume loss and opacification of the left chest, improved. 3. Chronic obstructive pulmonary disease exacerbation complicated by left lower lobe pneumonia as well as COVID-19 infection, with admission on November 10, 2019. 4. Paroxysmal atrial fibrillation with RVR. 5. Coronary artery disease. 6. History of degenerative joint disease. 7. History of sleep apnea syndrome. 8. Obesity. 9. Chronic hypoxemic respiratory failure. PLAN: The patient remains on Zinc, Zithromax and hydroxychloroquine. His blood gases are reasonable. He is receiving lactated Ringer's, propofol and tube feeds. I will push endotracheal tube down about a centimeter and a half. Additional recommendations and suggestions are forthcoming. The mucus plug that was in the left mainstem was removed yesterday. His overall prognosis remains guarded. We will continue to follow. He remains on tube feeds at goal. CRITICAL CARE TIME: 35 minutes. MMODL / IJN: [id number] /
[2019-11-20 12:11] LABS: Glucose,Whole Blood 253 mg/dL (75-99)
[2019-11-20] MEDS: DILTIAZEM ORAL 30 MG TAB PO SCH ×3 (12:45→23:05)
[2019-11-20 16:17] LABS: Glucose,Whole Blood 255 mg/dL (75-99)
[2019-11-20] MEDS ORDERED: INSULIN DETEMIR (LEVEMIR) 100 UNIT/ML SYR SQ ONE (16:38)
[2019-11-20] MEDS: INSULIN DETEMIR (LEVEMIR) 100 UNIT/ML SYR SQ SCH (18:07)
[2019-11-20] MEDS: methylPREDNISolone SOD SUCCI 125 MG/2 ML VIAL IV SCH (18:07)
[2019-11-20 20:19] LABS: Glucose,Whole Blood 256 mg/dL (75-99)
--- NOTE | 2019-11-20 22:09 | PN ---
PROGRESS NOTE DATE OF SERVICE: 11/20/2019 REASON FOR FOLLOWUP: Acute COVID-19 pneumonia. INTERVAL HISTORY: The patient is currently afebrile. The patient is hemodynamically stable currently, not requiring any pressor support. FiO2 is currently at 50%. Tolerating his tube feeds. No diarrhea reported. PHYSICAL EXAMINATION: Blood pressure 135/67 with a pulse of 94, temperature 98.2. He is 96% on 50% FiO2. General description is an elderly male lying in bed in no distress. RESPIRATORY SYSTEM: Unlabored breathing with decreased breath sounds at the base. No wheeze. HEART: S1, S2. Regular rate and rhythm. ABDOMEN: Soft. No tenderness. LABS: Hemoglobin 11.1, white count 9.5. BUN of 39, creatinine 0.75. Bronch culture so far pending. DIAGNOSTIC IMPRESSION AND PLAN: Patient with acute respiratory failure which is likely multifactorial in this patient who did have confirmed COVID-19 infection, also with mucus plugging requiring bronchoscopy. Those cultures are currently pending. Patient is covered with Zithromax and Plaquenil; to continue monitor his clinical course closely. MMODL / IJN: [id number] /
[2019-11-21 00:11] LABS: Glucose,Whole Blood 257 mg/dL (75-99)
[2019-11-21] MEDS: INSULIN ASPART (NovoLOG) 100 UNIT/ML VIAL SQ SCH ×12 (00:36→19:57)
[2019-11-21] MEDS: methylPREDNISolone SOD SUCCI 40 MG/ML 1 ML VIAL IV SCH ×4 (00:37→17:20)
[2019-11-21] MEDS: PROPOFOL 1,000 MG in EMPTY BAG 1 BAG IV SCH ×5 (03:40→23:20)
[2019-11-21] MEDS: LACTATED RINGERS 1,000 ML IV SCH ×4 (03:40→23:20)
[2019-11-21 04:12] LABS: Glucose,Whole Blood 249 mg/dL (75-99)
[2019-11-21 05:17] LABS: Basophils % (A) 0 %; Eosinophils % (A) 0 %; HCT 40.4 % (39.0-53.0); HGB 13.7 gm/dL (13.0-17.5); Lymphocytes # (A) 0.3 k/uL (1.0-4.8); Lymphocytes % (A) 2 %; MCH 32.4 pg (25.0-35.0); MCV 95.6 fL (80.0-100.0); Monocytes # (A) 0.3 k/uL (0-1.0); Monocytes % (A) 2 %; Neutrophils # (A) 12.7 k/uL (1.3-7.7); Neutrophils % (A) 95 %; Platelet Count 202 k/uL (150-450); RBC 4.23 m/uL (4.30-5.90); RDW 12.7 % (11.5-15.5); WBC 13.5 k/uL (3.8-10.6)
[2019-11-21 05:24] LABS: African American GFR (CKD) >90 (>60 ml/min/1.73 sqM); Anion Gap 1 mmol/L; Blood Urea Nitrogen 41 mg/dL (9-20); Carbon Dioxide 37 mmol/L (22-30); Chloride 97 mmol/L (98-107); Glucose 259 mg/dL (74-99); Non-African American GFR(CKD) >90 (>60 ml/min/1.73 sqM); Potassium 4.1 mmol/L (3.5-5.1); Sodium 135 mmol/L (137-145)
[2019-11-21] MEDS: INSULIN DETEMIR (LEVEMIR) 100 UNIT/ML SYR SQ SCH ×2 (06:03→19:55)
[2019-11-21 06:04] LABS: ABG Base Excess 11.5 mmol/L; ABG HCO3 36 mmol/L (21-25); ABG Oxygen Saturation 97.9 % (94-97); ABG PCO2 52 mmHg (35-45); ABG PH 7.44 (7.35-7.45); ABG PO2 105 mmHg (83-108); ABG TCO2 37 mmol/L (19-24)
[2019-11-21 06:17] LABS: Allen Test Performed? no
--- NOTE | 2019-11-21 06:48 | XR ---
EXAMINATION TYPE: XR chest 1V portable DATE OF EXAM: 11/21/2019 HISTORY: Tube placement. REFERENCE: Previous study dated 11/20/2019. FINDINGS: The patient is ET tube and NG tube remain in place, unchanged in appearance. The patient is rotated. There is left basilar airspace disease. This is unchanged. I suspect a small left effusion. The right lung is clear. Heart size is partially obscured. IMPRESSION: NO SIGNIFICANT INTERVAL CHANGE IN THE APPEARANCE OF THE CHEST.
[2019-11-21] MEDS ORDERED: INSULIN DETEMIR (LEVEMIR) 100 UNIT/ML SYR SQ SCH ×2 (07:00→09:00)
[2019-11-21] MEDS: SYMBICORT 160-4.5 MCG INHALER INHALATION SCH ×2 (07:33→19:38)
[2019-11-21] MEDS: ALBUTEROL INHALER 60 PUFF/8 GM INHALER (MHU) INHALATION SCH ×4 (07:33→19:37)
[2019-11-21 08:25] LABS: ABG PH 7.57 (7.35-7.45)
[2019-11-21 08:26] LABS: ABG HCO3 40 mmol/L (21-25)
[2019-11-21 08:26] LABS: ABG PH 7.56 (7.35-7.45)
[2019-11-21 08:30] LABS: Glucose,Whole Blood 238 mg/dL (75-99)
[2019-11-21] MEDS: APIXABAN 5 MG TAB PO SCH ×2 (09:10→19:55)
[2019-11-21] MEDS: CHLORHEXIDINE GLUCONATE 15 ML CUP MUCOUS MEM SCH ×2 (09:11→19:30)
[2019-11-21] MEDS: ASPIRIN 81 MG PO SCH (09:11)
[2019-11-21] MEDS: DIGOXIN 250 MCG TAB PO SCH (09:11)
[2019-11-21] MEDS: DILTIAZEM ORAL 30 MG TAB PO SCH ×3 (09:11→23:15)
[2019-11-21] MEDS: AZITHROMYCIN 500 MG in SODIUM CHLORIDE 0.9% 250 ML IVPB SCH (09:11)
[2019-11-21] MEDS: METOPROLOL TARTRATE 25 MG TAB PO SCH ×2 (09:12→19:55)
[2019-11-21] MEDS: ZINC SULFATE 220 MG CAP PO SCH (09:12)
[2019-11-21] MEDS: PANTOPRAZOLE 40 MG/10 ML VIAL IVP SCH (09:12)
--- NOTE | 2019-11-21 11:43 | P.PN ---
Subjective Progress Note Date: 11/21/19 This is a 69-year-old male patient of Dr. oHlland and Dr. Berumen with a previous medical history significant for paroxysmal atrial fibrillation, hypertension and hypertensive cardiovascular disease, hyperlipidemia, obesity with obstructive sleep apnea, CAD with ST elevation VA post-PCI of the RCA back in August 2016, advanced COPD with FEV1 of 20% of predicted, chronic hypoxic respiratory failure, diabetes mellitus type 2, remote history of tobacco use. Patient has had previous admissions for acute COPD exacerbation as well as atrial flutter or atrial fibrillation with RVR. Patient most recently was hospitalized at [facility] at which time he was treated for atrial fibrillation with RVR, and pneumonia with lactic acidosis. Patient was treated with Rocephin and azithromycin. Patient was discharged home on -. Patient was instructed to hold eliquis as he was scheduled for heart catheterization on Saturday. 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 He then developed fever of 104 at home as well as shortness of breath and productive cough. Patient came into [facility] emergency center for evaluation. Temperature 102.3, heart rate 101 and jumped up to 177, blood pressure 125/70, pulse ox 99%.. He was found to be in A. fib with RVR, influenza and RSV negative. patient was tested for COVID19 which is pending. CBC, CMP unremarkable. Lactic acid 1.9, troponin 0.012, proBNP 1680. Chest x-ray reveals patchy atelectasis at the lung bases is new and increased compared to old exam. No heart failure seen. Repeat Chest x-ray reveals worsening left basilar airspace disease. Primary diagnostic consideration is for unifocal pneumonia. Patient has been admitted to the intensive care unit and consult in place with pulmonary medicine and cardiology consult will be added. color television console monitor is now A. 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 Cardizem drip will be discontinued and home oral medications resumed. 11/10: Patient is seen in the intensive care unit. He is in isolation for possible Covid 19 infection. Case was reviewed with the nurse outside the patient's room. No hands-on physical exam was performed. Patient is currently on O2 at 6 L nasal cannula with pulse ox of 95%, recommended that patient be weaned down on oxygen level. Temperature max today is 100.3. Heart rate in the 90s and low 100s. Blood pressure 119/76. Repeat blood work reveals a platelet count 108, WBC 7.1, hemoglobin 14.8. Sodium 132, potassium 4.6, chloride 102, CO2 24, BUN 10 and creatinine 0.57. Blood culture 2 no growth at 24 hours. COVID-19 testing remains pending. 11/11: Patient remains in the intensive care unit and has now been downgraded to [facility] with telemetry. Patient's less lethargic today. He is oriented 3. He received Lasix yesterday IV and diuresed well. He has had good urine output. CBC shows normal white count and hemoglobin, platelet count 139. Sodium 133, potassium 4.7, chloride 100, CO2 28, BUN 16 and creatinine 0.56. Pro-calcitonin 0.09. Blood culture no growth at 48 hours 2 specimens. Sputum culture is in progress. Repeat chest x-ray reveals small left pleural effusion and left basilar airspace disease as well as stable right infrahilar airspace disease and may represent atelectasis or developing pneumonia. Incentive spirometry and ABGs ordered. Solu-Medrol 60mg will be decreased to every 8 hours. 11/12: Patient is still having shortness of breath currently at 5 L nasal cannula. We will add Lasix 40 mg IV twice daily. Vancomycin can be discontinued at this point. COVID-19 remains pending. Patient remains in isolation. Patient has been afebrile, heart rate 90s, blood pressure 112/70, pulse ox 95% on 5 L nasal cannula. Repeat lab work reveals platelet count 135. Sodium 133, potassium 4.1, BUN 24 and creatinine 0.64. Blood sugars running in the 200s. Serum culture reveals normal fe. Blood culture no growth 2 specimens. 11/13: Patient is having less symptom with shortness of breath no chest pain at this point. Patient is responding well to current IV antibiotic with much lower temperature. Blood sugar was running high last night his Levemir was increased to 20 units twice a day and Humalog up to 5 units before meals meals plus sliding scale a. Patient COVID-19 remain pending at this point patient remain on isolation. Otherwise feeling well, still seen pulmonary with FEV1 of 20% only with a current hypoxia patient is doing much better with less oxygen concentration. Also patient original plan for elective heart catheter on Saturday with his linux admin at [facility] is delay ~febrile illness and infection is completely clear probably will be rescheduled for at least 2-4 weeks from his discharge date. 11/14: Patient is doing well today continued to be more tired and fatigued his hypoxia has been much better his testing still negative for this point, his bloo d sugar still mildly elevated and titrate his insulin today to keep his random blood sugar below 150. Patient is not having any chest pain or shortness of breath is bilateral pneumonia as well treated and managed currently we'll continue to wean him down on oxygen continue diuretics and switch to oral patient expected discharge probably in 48 hours. 11/15: The patient remains in intensive care unit but is a MedSurg overflow. COVID-19 is positive. Solu-Medrol will be discontinued. Blood sugars have been quite high but expect this to improve now that he is off Solu-Medrol. Patient is currently on antibiotics in the form of cefepime and Levaquin. Ultrasound of the chest revealed minimal left-sided effusion. Patient has been afebrile, heart rate 72, blood pressure 126/72, pulse ox 90% on 5 L nasal cannula. 11/16: Patient remains in the intensive care unit but is MedSurg overflow, Covid 19 positive. Patient has been started on a Zithromax then and Plaquenil by Dr. Ordonez. Patient has been hemodynamically stable with blood pressure 131/76, heart rate 72, afebrile. Pulse ox is running 90 on 5 L nasal cannula. Repeat blood work reveals white count of 11.7, CO2 38, BUN 28 creatinine 0.66. Blood sugars are running between 189 and 209. Blood sugars are improved after IV steroids discontinued. Repeat chest x-ray shows persistent left mid to lower lung edema and/or infiltrate silhouetting left heart border and hemidiaphragm. Worsening left upper lung interstitial edema and/or infiltrates noted. Stable left-sided volume loss. Patient denies having any cough at this time, no sputum production. Patient denies having chest pain. Discharge planning is in progress. Patient at this time is unable to go to subacute rehab due to restrictions regarding Covid testing. general manager land department has been in contact with family members and home care including PT have been arranged. Wheelchair will be ordered and arranged by case maker. Patient may also benefit from walker which family will obtain. We are anticipating discharge in 24-48 hours. Patient has had good urine output and Montemayor catheter will be removed later. 11/17: Patient developed increasing shortness of breath during the evening and oxygen was increased to 15 L high flow nasal cannula. Patient was given a dose of Lasix 40 mg IV push and was weaned down to 8 L nasal cannula. Pulse ox then was running 85% and he is currently up to 10 L nasal cannula. Patient is found sitting up in a chair and appears to be in no acute respiratory distress. Patient has been very reluctant to move. Patient has incentive spirometry and is only reaching 75 ML's. WBC 12.2. Sodium 135, potassium 5.5, chloride 91, CO2 38, P1 20 and creatinine 0.57. Blood sugars run between 106 and 133. Troponin from last night was negative, proBNP 1150. Repeat potassium 3.6. color television console monitor is A. fib controlled rate. Patient is afebrile, heart rate 92, blood pressure 101/70. Patient's has been updated via the phone by Dr. Derek apple. Patient is extremely weak and we will repeat Covid 19 testing in anticipation of need for subacute rehab. Patient's states that she is unable to manage him at home. 11/18: Patient have further decline this morning of his respiratory status with increasing fatigue and is being intubated by Dr. Barry this morning. Chest x- ray reveals worsening opacities occasional left lower lobe and lingula. Worsening infiltrate in the left upper lobe was present. There may be some shift of the mediastinum towards the left. Correlate for atelectasis. Moderate pleural effusion appears stable. Repeat blood work reveals WBC 16.5, sodium 136, potassium 3.6, chloride 90, CO2 40, BUN 13 creatinine 0.72. Repeat troponin negative. ProBNP 732. Patient had a low blood sugar which required treatment this morning of 57. Scheduled Levemir and NovoLog will be discontinued. color television console monitor is atrial fibrillation with controlled rate. Patient's was contacted via phone and updated regarding patient's current condition, need for intubation and guarded prognosis. 11/19: Patient remains in the intensive care unit intubated and on mechanical ventilation. Patient has been afebrile, heart rate 85, blood pressure 129/59. Patient has not required vasopressor support. WBC 9.5, hemoglobin 11.1, platelet count 137. Sodium 135, potassium 4.4, chloride 94, BUN 39 creatinine 0.75. Blood sugars are running in the 200s. All scheduled insulin was discontinued due to hypoglycemia yesterday. Patient is now on LR and Solu- Medrol, Levemir 10 units added back in. Patient is also on insulin scale. Yesterday, besides being intubated, patient underwent bronchoscopy with airway examination, therapeutic lavage, BAL of the left lung. There was noted mild bronchitis and on the left side a huge mucous plug completely obstructing the proximal left main stem was removed. Repeat chest x-ray this morning reveals endotracheal tube slightly high riding could be advanced. Slightly improved small left pleural effusion and left basilar airspace disease. Pneumonia versus atelectasis. Patient remains on azithromycin, Plaquenil and a zinc. Patient is also followed by infectious disease. Cardiology has signed off. Patient's case was discussed with his nurse. No physical exam done in order to limit exposure to COVID-19 patient while intubated. 11/20: Patient remains in intensive care unit currently intubated on mechanical ventilation he was seen earlier by pulmonary medicine and he was dropped down to 50% and FiO2 he is trying to follow commands by weaning down the sedation however he continues to have significant distress he is in droplet precaution due to COVID-19 status, discussed his plan of care with the nursing staff his blood glucose levels were elevated and he was started on Levemir earlier that was increased to 15 units twice a day along with the Humalog plus sliding scale. Objective - Vital Signs Vital signs: Vital Signs Temp 36.1 F L 11/21/19 08:00 Pulse 96 11/21/19 08:00 Resp 16 11/21/19 08:00 BP 126/76 11/21/19 08:00 Pulse Ox 97 11/21/19 08:00 Intake & Output 11/20/19 11/21/19 11/21/19 18:59 06:59 18:59 Intake Total 2427.9 2213.00 449.576 Output Total 633 870 90 Balance 1794.9 1343.00 359.576 Weight 109.4 kg Intake: IV 1816 1572 262 Azithromycin 500 mg In 250 Sodium Chloride 0.9% 250 ml @ 250 mls/hr IVPB DAILY [facility] Rx#:[id number] Lactated Ringers 1,000 ml 1500 1500 250 @ 125 mls/hr IV .Q8H JOE Rx#:[id number] Normal Saline Pressure 66 72 12 Bag Intake, IV Titration 160.9 100.00 75.576 Amount Propofol 1,000 mg In 160.9 100.00 75.576 Empty Bag 1 bag @ Titrate IV .Q0M JOE Rx#: [id number] Tube Feeding 361 451 82 Other 90 90 30 Output: Urine 633 870 90 Other: Voiding Method Indwelling Catheter Indwelling Catheter ABP, PAP, CO, CI - Last Documented Arterial Blood Pressure 127/62 - Exam - Exam Review of Systems unable to be obtained due to sedation and intubation Physical examination- Gen: This is a 69-year-old man. Patient and ICU bed with no respiratory distress. HEENT: Head is atraumatic, normocephalic. Oral ET and gastric tube in place. Physical exam deferred due to COVID-19 isolation. - Labs CBC & Chem 7: 11/21/19 05:00 11/21/19 05:00 Labs: Abnormal Lab Results - Last 24 Hours (Table) 11/19/19 11/19/19 11/19/19 Range/Units 02:06 05:42 10:28 WBC (3.8-10.6) k/uL RBC (4.30-5.90) m/uL Neutrophils # (1.3-7.7) k/uL Lymphocytes # (1.0-4.8) k/uL ABG pH 7.57 H* 7.56 H* (7.35-7.45) ABG pCO2 (35-45) mmHg ABG HCO3 40 H* (21-25) mmol/L ABG Total CO2 (19-24) mmol/L ABG O2 Saturation (94-97) % Sodium (137-145) mmol/L Chloride (98-107) mmol/L Carbon Dioxide (22-30) mmol/L BUN (9-20) mg/dL Creatinine (0.66-1.25) mg/dL Glucose (74-99) mg/dL POC Glucose (mg/dL) (75-99) mg/dL Viral Test See Below H 11/20/19 11/20/19 11/20/19 Range/Units 12:10 16:16 20:17 WBC (3.8-10.6) k/uL RBC (4.30-5.90) m/uL Neutrophils # (1.3-7.7) k/uL Lymphocytes # (1.0-4.8) k/uL ABG pH (7.35-7.45) ABG pCO2 (35-45) mmHg ABG HCO3 (21-25) mmol/L ABG Total CO2 (19-24) mmol/L ABG O2 Saturation (94-97) % Sodium (137-145) mmol/L Chloride (98-107) mmol/L Carbon Dioxide (22-30) mmol/L BUN (9-20) mg/dL Creatinine (0.66-1.25) mg/dL Glucose (74-99) mg/dL POC Glucose (mg/dL) 253 H 255 H 256 H (75-99) mg/dL Viral Test 11/21/19 11/21/19 11/21/19 Range/Units 00:08 04:11 05:00 WBC 13.5 H (3.8-10.6) k/uL RBC 4.23 L (4.30-5.90) m/uL Neutrophils # 12.7 H (1.3-7.7) k/uL Lymphocytes # 0.3 L (1.0-4.8) k/uL ABG pH (7.35-7.45) ABG pCO2 (35-45) mmHg ABG HCO3 (21-25) mmol/L ABG Total CO2 (19-24) mmol/L ABG O2 Saturation (94-97) % Sodium (137-145) mmol/L Chloride (98-107) mmol/L Carbon Dioxide (22-30) mmol/L BUN (9-20) mg/dL Creatinine (0.66-1.25) mg/dL Glucose (74-99) mg/dL POC Glucose (mg/dL) 257 H 249 H (75-99) mg/dL Viral Test 11/21/19 11/21/19 11/21/19 Range/Units 05:00 06:02 08:21 WBC (3.8-10.6) k/uL RBC (4.30-5.90) m/uL Neutrophils # (1.3-7.7) k/uL Lymphocytes # (1.0-4.8) k/uL ABG pH (7.35-7.45) ABG pCO2 52 H (35-45) mmHg ABG HCO3 36 H (21-25) mmol/L ABG Total CO2 37 H (19-24) mmol/L ABG O2 Saturation 97.9 H (94-97) % Sodium 135 L (137-145) mmol/L Chloride 97 L (98-107) mmol/L Carbon Dioxide 37 H (22-30) mmol/L BUN 41 H (9-20) mg/dL Creatinine 0.64 L (0.66-1.25) mg/dL Glucose 259 H (74-99) mg/dL POC Glucose (mg/dL) 238 H (75-99) mg/dL Viral Test Microbiology - Last 24 Hours (Table) 11/19/19 10:28 Acid Fast Bacilli Smear - Final Bronchoalviolar Lavage - Left Acid Fast Bacilli Culture - Preliminary Assessment and Plan Assessment: Assessment and Plan Plan: 1. Acute febrile illness most likely secondary to bibasilar pneumonia, gram- negative pneumonia and COVID-19. Atrovent nebulizer treatment every 6 hours as needed, Symbicort twice daily, Solu-Medrol 40 mg IV every 6 hours. Consults with pulmonary medicine and Dr. Ordonez appreciated. Patient has been started on Plaquenil, azithromycin and zinc. 2. Acute on chronic hypoxic respiratory failure secondary to Covid 19. Vent management per Dr. Barry. 3. A. fib with RVR, chronic atrial fibrillation. Heart rate is currently controlled. Patient continued on eliquis 5 mg twice daily, digoxin 250 g daily, Cardizem oral 90 mg 3 times daily, Lopressor 25 mg twice daily. Cardiology consult appreciated. Cardiology is following on an as-needed basis only.. 4. Advanced COPD. Continue Atrovent, Pulmicort twice daily, consult with [facility] medicine 5. Obstructive sleep apnea. 6. Known coronary artery disease post angioplasty and stent placement. Patient was scheduled to undergo catheterization at [facility]. 7. Hypertension hypertensive cardiovascular disease. 8. Abdominal aortic aneurysm monitored by vascular surgery. 9. GI prophylaxis. Protonix. 10. DVT prophylaxis. Eliquis. 11. Diabetes mellitus type 2. Increase Levemir to 15 units twice every day along with Humalog per sliding scale, continue to monitor blood glucose level every 4 hours. 12. Overall prognosis guarded. 13. Patient's full code.
[2019-11-21 12:11] LABS: Glucose,Whole Blood 219 mg/dL (75-99)
--- NOTE | 2019-11-21 13:37 | PN ---
PROGRESS NOTE PULMONARY/CRITICAL CARE PROGRESS NOTE: DATE OF SERVICE: 11/21/2019 CRITICAL CARE TIME: 34 minutes. A 69-year-old male who was admitted back on November 09. He initially came in with a COPD exacerbation complicated by left-sided pneumonia. The patient did test positive for COVID 19. He also suffers from paroxysmal atrial fibrillation with RVR, CAD, DJD, sleep apnea syndrome, as well as other medical issues. A couple days ago, he took a turn for the worse and he ended up being intubated. He also had an art line and central line placed. In addition, because of the large mucus plug in the left mainstem, I did bronchoscopy on him. The mucus plug was removed. After that, he seemed to do a bit better with his oxygenation. He remains on the ventilator. Currently, he is on the volume assist-control mode rate of 20, tidal volume 450, FiO2 of 60%, PEEP of 10. Blood gases show pO2 of 105, pCO2 of 52, and a pH of 7.44. Based on these blood gases, the PO2 has dropped from 60% to 50%. No changes were made in the PEEP. In addition, he is getting lactated Ringer's at 125 mL an hour, propofol at 25 mcg/kg per minute and Vital HP at 41 with a goal of 41 mL an hour. The patient will get a sedation holiday today. Other than that, the patient seems to be doing reasonably well. His overall prognosis though remains tenuous. He is on Plaquenil and zinc for his COVID infection. Current vital signs are reviewed, temperature is 98.4, heart rate 66, respiratory rate 21, blood pressure 121/56, saturations are 97%. CVP is 9. GENERAL: Appears in no acute distress. HEENT: Examination is grossly unremarkable. The patient is currently sedated. There is an orally placed endotracheal tube and NG tube. NECK: Supple, full range of motion. No adenopathy or thyromegaly. Neck veins are flat. CARDIOVASCULAR: Examination reveals regular rhythm and rate. S1, S2 normal. No murmur. Heart rate about 70 beats per minute. LUNGS: Reveal diffuse coarse rhonchi. Breath sounds are equal. No crackles. ABDOMEN: Soft, bowel sounds are heard. EXTREMITIES: Iintact. Minimal to no edema. SKIN: Without rash. NEUROLOGIC: Examination is difficult to assess this morning because he is heavily sedated. LABS: Reviewed. Currently, white count 13.5, hemoglobin 13.7, hematocrit 40.4, platelet count 202,000. Sodium 135, potassium 4.1, chloride 97, CO2 of 37. Anion gap is 1. BUN and creatinine were 41 and 0.64. Microbiology is reviewed. Everything thus far is negative. The COVID-19 sampling was positive. Chest x-ray from November 20 shows no acute change in the patient's chest x-ray appearance.. There is left basilar airspace disease and a small left-sided effusion. MEDICATIONS: Reviewed. He is currently on albuterol inhaler, Eliquis, aspirin, Zithromax, Symbicort, chlorhexidine, digoxin, Cardizem, Dilaudid, insulin, Solu-Medrol, metoprolol, Protonix, potassium replacement, and zinc therapy. The patient did complete his 5 days of hydroxychloroquine or Plaquenil. ASSESSMENT: 1. Acute hypoxemic respiratory failure requiring intubation and mechanical ventilation, subsequent bronchoscopy for mucous plugging on November 19, 2019. 2. Mucus plug, left main stent, left mainstem, causing volume loss and opacification of the left chest, much improved, post bronchoscopy. 3. Chronic obstructive pulmonary disease exacerbation complicated by left lower lobe pneumonia as well as COVID-19 infection, with admission back on November 10, 2019. 4. Paroxysmal atrial fibrillation with RVR. 5. Coronary artery disease. 6. History of degenerative joint disease. 7. History of sleep apnea syndrome. 8. Obesity. 9. Chronic hypoxemic respiratory failure. PLAN: The patient's FiO2 is dropped from 60% to 50%. The patient will remain on his current medications. He will have a sedation holiday. The patient is at his goal for tube feeding. The patient did complete his 5 days of hydroxychloroquine and Plaquenil. He remains on additional antibiotic. Culture data thus far is completely negative including the bronch washings. Overall prognosis remains very guarded. CRITICAL CARE TIME: 34 minutes. MMALEML / BATOOLN: [id number] / MTDD
[2019-11-21 16:37] LABS: Glucose,Whole Blood 243 mg/dL (75-99)
--- NOTE | 2019-11-21 19:29 | PN ---
PROGRESS NOTE DATE OF SERVICE: 11/21/2019 REASON FOR FOLLOWUP: Acute Covid-9 pneumonia. INTERVAL HISTORY: The patient is currently afebrile. The patient is hemodynamically stable. The patient is currently sedated on the vent. FiO2 is down to 50%. No significant purulent secretion through the ET per the nursing staff. No diarrhea reported. PHYSICAL EXAMINATION: Blood pressure 131/70 with a pulse of 79, temperature 98. He is 98% on 50% FiO2. General description is an elderly male, intubated on the vent. Respiratory system: Unlabored breathing, decreased breath sounds in the bases. No wheeze. Heart S1, S2. Regular rate and rhythm. ABDOMEN: Soft, no tenderness. LABS: Hemoglobin is 13.7, white count 13.5, creatinine 0.64. Bronch culture so far negative. DIAGNOSTIC IMPRESSION AND PLAN: Patient with acute respiratory failure which is likely multifactorial with a component of viral pneumonia. Patient is confirmed Covid-19 and has been treated with Plaquenil and Zithromax per protocol. Continue with respiratory support and monitor clinical course closely. MMODL / IJN: [id number] /
[2019-11-21 19:52] LABS: Glucose,Whole Blood 214 mg/dL (75-99)
[2019-11-22 00:08] LABS: Glucose,Whole Blood 254 mg/dL (75-99)
[2019-11-22] MEDS: INSULIN ASPART (NovoLOG) 100 UNIT/ML VIAL SQ SCH ×12 (00:18→20:39)
[2019-11-22] MEDS: methylPREDNISolone SOD SUCCI 40 MG/ML 1 ML VIAL IV SCH ×5 (00:18→23:55)
[2019-11-22 04:39] LABS: Glucose,Whole Blood 233 mg/dL (75-99)
[2019-11-22] MEDS: PROPOFOL 1,000 MG in EMPTY BAG 1 BAG IV SCH ×5 (04:53→22:30)
[2019-11-22 05:31] LABS: ABG Base Excess 11.5 mmol/L; ABG HCO3 36 mmol/L (21-25); ABG Oxygen Saturation 96.1 % (94-97); ABG PCO2 51 mmHg (35-45); ABG PH 7.45 (7.35-7.45); ABG PO2 82 mmHg (83-108); ABG TCO2 37 mmol/L (19-24)
[2019-11-22 05:35] LABS: Basophils % (A) 0 %; Eosinophils % (A) 0 %; HCT 41.4 % (39.0-53.0); HGB 13.5 gm/dL (13.0-17.5); Lymphocytes # (A) 0.3 k/uL (1.0-4.8); Lymphocytes % (A) 2 %; MCH 31.7 pg (25.0-35.0); MCHC 32.7 g/dL (31.0-37.0); MCV 96.8 fL (80.0-100.0); Mean Platelet Volume 9.1; Monocytes # (A) 0.5 k/uL (0-1.0); Monocytes % (A) 4 %; Neutrophils % (A) 93 %; Platelet Count 176 k/uL (150-450); RBC 4.27 m/uL (4.30-5.90); RDW 12.6 % (11.5-15.5); WBC 11.9 k/uL (3.8-10.6)
[2019-11-22 05:42] LABS: Allen Test Performed? no
[2019-11-22 05:48] LABS: African American GFR (CKD) >90 (>60 ml/min/1.73 sqM); Anion Gap 2 mmol/L; Blood Urea Nitrogen 37 mg/dL (9-20); Calcium 9.3 mg/dL (8.4-10.2); Carbon Dioxide 36 mmol/L (22-30); Chloride 98 mmol/L (98-107); Glucose 251 mg/dL (74-99); Non-African American GFR(CKD) >90 (>60 ml/min/1.73 sqM); Potassium 4.2 mmol/L (3.5-5.1); Sodium 136 mmol/L (137-145)
[2019-11-22] MEDS: INSULIN DETEMIR (LEVEMIR) 100 UNIT/ML SYR SQ SCH ×2 (06:35→21:20)
--- NOTE | 2019-11-22 06:46 | XR ---
EXAMINATION TYPE: XR chest 1V portable DATE OF EXAM: 11/22/2019 HISTORY: Tube placement. REFERENCE: Previous study dated 11/21/2019. FINDINGS: The patient's NG tube and ET tube remain in place, unchanged in appearance. There is a left internal jugular catheter in place. Its tip is in the superior vena cava. There continues be left basilar airspace disease. There is a left-sided effusion. Heart size is withi n normal limits. IMPRESSION: NO SIGNIFICANT INTERVAL CHANGE IN THE APPEARANCE OF THE CHEST.
[2019-11-22] MEDS: ALBUTEROL INHALER 60 PUFF/8 GM INHALER (MHU) INHALATION SCH ×4 (07:30→20:13)
[2019-11-22] MEDS: SYMBICORT 160-4.5 MCG INHALER INHALATION SCH ×2 (07:30→20:13)
[2019-11-22] MEDS: PANTOPRAZOLE 40 MG/10 ML VIAL IVP SCH (08:40)
[2019-11-22] MEDS: METOPROLOL TARTRATE 25 MG TAB PO SCH ×2 (08:41→20:21)
[2019-11-22] MEDS: AZITHROMYCIN 500 MG in SODIUM CHLORIDE 0.9% 250 ML IVPB SCH (08:41)
[2019-11-22] MEDS: ASPIRIN 81 MG PO SCH (08:42)
[2019-11-22] MEDS: CHLORHEXIDINE GLUCONATE 15 ML CUP MUCOUS MEM SCH ×2 (08:42→20:21)
[2019-11-22] MEDS: ZINC SULFATE 220 MG CAP PO SCH (08:42)
[2019-11-22] MEDS: DIGOXIN 250 MCG TAB PO SCH (08:42)
[2019-11-22] MEDS: APIXABAN 5 MG TAB PO SCH ×2 (08:42→20:22)
[2019-11-22] MEDS: DILTIAZEM ORAL 30 MG TAB PO SCH ×3 (08:46→20:21)
[2019-11-22 09:07] LABS: Glucose,Whole Blood 248 mg/dL (75-99)
[2019-11-22 11:40] LABS: Glucose,Whole Blood 235 mg/dL (75-99)
--- NOTE | 2019-11-22 12:30 | P.PN ---
Subjective Progress Note Date: 11/22/19 This is a 69-year-old male patient of Dr. Holland and Dr. Berumen with a previous medical history significant for paroxysmal atrial fibrillation, hypertension and hypertensive cardiovascular disease, hyperlipidemia, obesity with obstructive sleep apnea, CAD with ST elevation [place] post-PCI of the RCA back in August 2016, advanced COPD with FEV1 of 20% of predicted, chronic hypoxic respiratory failure, diabetes mellitus type 2, remote history of tobacco use. Patient has had previous admissions for acute COPD exacerbation as well as atrial flutter or atrial fibrillation with RVR. Patient most recently was hospitalized at [facility] at which time he was treated for atrial fibrillation with RVR, and pneumonia with lactic acidosis. Patient was treated with Rocephin and azithromycin. Patient was discharged home on -. Patient was instructed to hold eliquis as he was scheduled for heart catheterization on Saturday. Patient went to his regulatory associate in [place] and was to be scheduled for heart catheterization today. He then developed fever of 104 at home as well as shortness of breath and productive cough. Patient came into [facility] emergency center for evaluation. Temperature 102.3, heart rate 101 and jumped up to 177, blood pressure 125/70, pulse ox 99%.. He was found to be in A. fib with RVR, influenza and RSV negative. patient was tested for COVID19 which is pending. CBC, CMP unremarkable. Lactic acid 1.9, troponin 0.012, proBNP 1680. Chest x-ray reveals patchy atelectasis at the lung bases is new and increased compared to old exam. No heart failure seen. Repeat Chest x-ray reveals worsening left basilar airspace disease. Primary diagnostic consideration is for unifocal pneumonia. Patient has been admitted to the intensive care unit and consult in place with pulmonary medicine and cardiology consult will be added. classroom monitor is now A. 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 Cardizem drip will be discontinued and home oral medications resumed. 11/10: Patient is seen in the intensive care unit. He is in isolation for possible Covid 19 infection. Case was reviewed with the nurse outside the patient's room. No hands-on physical exam was performed. Patient is currently on O2 at 6 L nasal cannula with pulse ox of 95%, recommended that patient be weaned down on oxygen level. Temperature max today is 100.3. Heart rate in the 90s and low 100s. Blood pressure 119/76. Repeat blood work reveals a platelet count 108, WBC 7.1, hemoglobin 14.8. Sodium 132, potassium 4.6, chloride 102, CO2 24, BUN 10 and creatinine 0.57. Blood culture 2 no growth at 24 hours. COVID-19 testing remains pending. 11/11: Patient remains in the intensive care unit and has now been downgraded to [facility] with telemetry. Patient's less lethargic today. He is oriented 3. He received Lasix yesterday IV and diuresed well. He has had good urine output. CBC shows normal white count and hemoglobin, platelet count 139. Sodium 133, potassium 4.7, chloride 100, CO2 28, BUN 16 and creatinine 0.56. Pro-calcitonin 0.09. Blood culture no growth at 48 hours 2 specimens. Sputum culture is in progress. Repeat chest x-ray reveals small left pleural effusion and left basilar airspace disease as well as stable right infrahilar airspace disease and may represent atelectasis or developing pneumonia. Incentive spirometry and ABGs ordered. Solu-Medrol 60mg will be decreased to every 8 hours. 11/12: Patient is still having shortness of breath currently at 5 L nasal cannula. We will add Lasix 40 mg IV twice daily. Vancomycin can be discontinued at this point. COVID-19 remains pending. Patient remains in isolation. Patient has been afebrile, heart rate 90s, blood pressure 112/70, pulse ox 95% on 5 L nasal cannula. Repeat lab work reveals platelet count 135. Sodium 133, potassium 4.1, BUN 24 and creatinine 0.64. Blood sugars running in the 200s. Serum culture reveals normal fe. Blood culture no growth 2 specimens. 11/13: Patient is having less symptom with shortness of breath no chest pain at this point. Patient is responding well to current IV antibiotic with much lower temperature. Blood sugar was running high last night his Levemir was increased to 20 units twice a day and Humalog up to 5 units before meals meals plus sliding scale a. Patient COVID-19 remain pending at this point patient remain on isolation. Otherwise feeling well, still seen pulmonary with FEV1 of 20% only with a current hypoxia patient is doing much better with less oxygen concentration. Also patient original plan for elective heart catheter on Saturday with his regulatory associate at [facility] is delay ~febrile illness and infection is completely clear probably will be rescheduled for at least 2-4 weeks from his discharge date. 11/14: Patient is doing well today continued to be more tired and fatigued his hypoxia has been much better his testing still negative for this point, his bloo d sugar still mildly elevated and titrate his insulin today to keep his random blood sugar below 150. Patient is not having any chest pain or shortness of breath is bilateral pneumonia as well treated and managed currently we'll continue to wean him down on oxygen continue diuretics and switch to oral patient expected discharge probably in 48 hours. 11/15: The patient remains in intensive care unit but is a MedSurg overflow. COVID-19 is positive. Solu-Medrol will be discontinued. Blood sugars have been quite high but expect this to improve now that he is off Solu-Medrol. Patient is currently on antibiotics in the form of cefepime and Levaquin. Ultrasound of the chest revealed minimal left-sided effusion. Patient has been afebrile, heart rate 72, blood pressure 126/72, pulse ox 90% on 5 L nasal cannula. 11/16: Patient remains in the intensive care unit but is MedSurg overflow, Covid 19 positive. Patient has been started on a Zithromax then and Plaquenil by Dr. Ordonez. Patient has been hemodynamically stable with blood pressure 131/76, heart rate 72, afebrile. Pulse ox is running 90 on 5 L nasal cannula. Repeat blood work reveals white count of 11.7, CO2 38, BUN 28 creatinine 0.66. Blood sugars are running between 189 and 209. Blood sugars are improved after IV steroids discontinued. Repeat chest x-ray shows persistent left mid to lower lung edema and/or infiltrate silhouetting left heart border and hemidiaphragm. Worsening left upper lung interstitial edema and/or infiltrates noted. Stable left-sided volume loss. Patient denies having any cough at this time, no sputum production. Patient denies having chest pain. Discharge planning is in progress. Patient at this time is unable to go to subacute rehab due to restrictions regarding Covid testing. division human resources manager has been in contact with family members and home care including PT have been arranged. Wheelchair will be ordered and arranged by shelter case manager. Patient may also benefit from walker which family will obtain. We are anticipating discharge in 24-48 hours. Patient has had good urine output and Mont[place]or catheter will be removed later. 11/17: Patient developed increasing shortness of breath during the evening and oxygen was increased to 15 L high flow nasal cannula. Patient was given a dose of Lasix 40 mg IV push and was weaned down to 8 L nasal cannula. Pulse ox then was running 85% and he is currently up to 10 L nasal cannula. Patient is found sitting up in a chair and appears to be in no acute respiratory distress. Patient has been very reluctant to move. Patient has incentive spirometry and is only reaching 75 ML's. WBC 12.2. Sodium 135, potassium 5.5, chloride 91, CO2 38, P1 20 and creatinine 0.57. Blood sugars run between 106 and 133. Troponin from last night was negative, proBNP 1150. Repeat potassium 3.6. classroom monitor is A. fib controlled rate. Patient is afebrile, heart rate 92, blood pressure 101/70. Patient's has been updated via the phone by Dr. Derek apple. Patient is extremely weak and we will repeat Covid 19 testing in anticipation of need for subacute rehab. Patient's states that she is unable to manage him at home. 11/18: Patient have further decline this morning of his respiratory status with increasing fatigue and is being intubated by Dr. Barry this morning. Chest x- ray reveals worsening opacities occasional left lower lobe and lingula. Worsening infiltrate in the left upper lobe was present. There may be some shift of the mediastinum towards the left. Correlate for atelectasis. Moderate pleural effusion appears stable. Repeat blood work reveals WBC 16.5, sodium 136, potassium 3.6, chloride 90, CO2 40, BUN 13 creatinine 0.72. Repeat troponin negative. ProBNP 732. Patient had a low blood sugar which required treatment this morning of 57. Scheduled Levemir and NovoLog will be discontinued. classroom monitor is atrial fibrillation with controlled rate. Patient's was contacted via phone and updated regarding patient's current condition, need for intubation and guarded prognosis. 11/19: Patient remains in the intensive care unit intubated and on mechanical ventilation. Patient has been afebrile, heart rate 85, blood pressure 129/59. Patient has not required vasopressor support. WBC 9.5, hemoglobin 11.1, platelet count 137. Sodium 135, potassium 4.4, chloride 94, BUN 39 creatinine 0.75. Blood sugars are running in the 200s. All scheduled insulin was discontinued due to hypoglycemia yesterday. Patient is now on LR and Solu- Medrol, Levemir 10 units added back in. Patient is also on insulin scale. Yesterday, besides being intubated, patient underwent bronchoscopy with airway examination, therapeutic lavage, BAL of the left lung. There was noted mild bronchitis and on the left side a huge mucous plug completely obstructing the proximal left main stem was removed. Repeat chest x-ray this morning reveals endotracheal tube slightly high riding could be advanced. Slightly improved small left pleural effusion and left basilar airspace disease. Pneumonia versus atelectasis. Patient remains on azithromycin, Plaquenil and a zinc. Patient is also followed by infectious disease. Cardiology has signed off. Patient's case was discussed with his nurse. No physical exam done in order to limit exposure to COVID-19 patient while intubated. 11/20: Patient remains in intensive care unit currently intubated on mechanical ventilation he was seen earlier by pulmonary medicine and he was dropped down to 50% and FiO2 he is trying to follow commands by weaning down the sedation however he continues to have significant distress he is in droplet precaution due to COVID-19 status, discussed his plan of care with the nursing staff his blood glucose levels were elevated and he was started on Levemir earlier that was increased to 15 units twice a day along with the Humalog plus sliding scale. 11/21: Patient remains in intensive care unit currently intubated on mechanical ventilation he continues to be followed by pulmonary medicine, trying to wean the sedation off, continues to be in significant distress with droplet precautions due to his Covid 19 status, we will continue to monitor the follow the patient peripherally. Objective - Vital Signs Vital signs: Vital Signs Temp 98.6 F 11/22/19 09:00 Pulse 105 H 11/22/19 09:00 Resp 20 11/22/19 09:00 BP 126/76 11/21/19 08:00 Pulse Ox 97 11/22/19 09:00 Intake & Output 11/21/19 11/22/19 11/22/19 18:59 06:59 18:59 Intake Total 2645.971 2354.000 546 Output Total 840 795 110 Balance 6664.126 7938.000 436 Weight 114.7 kg Intake: IV 1822 1572 393 Azithromycin 500 mg In 250 125 Sodium Chloride 0.9% 250 ml @ 250 mls/hr IVPB DAILY JOE Rx#:[id number] Lactated Ringers 1,000 ml 1500 1500 250 @ 125 mls/hr IV .Q8H JOE Rx#:[id number] Normal Saline Pressure 72 72 18 Bag Intake, IV Titration 241.971 200.000 Amount Propofol 1,000 mg In 241.971 200.000 Empty Bag 1 bag @ Titrate IV .Q0M JOE Rx#: [id number] Tube Feeding 492 492 123 Other 90 90 30 Output: Urine 840 795 110 Other: Voiding Method Indwelling Catheter Indwelling Catheter ABP, PAP, CO, CI - Last Documented Arterial Blood Pressure 135/69 - Exam - Exam Review of Systems unable to be obtained due to sedation and intubation Physical examination- Gen: This is a 69-year-old man. Patient and ICU bed with no respiratory distress. HEENT: Head is atraumatic, normocephalic. Oral ET and gastric tube in place. Physical exam deferred due to COVID-19 isolation. - Labs CBC & Chem 7: 11/22/19 05:25 11/22/19 05:25 Labs: Abnormal Lab Results - Last 24 Hours (Table) 11/21/19 11/21/19 11/21/19 Range/Units 12:01 16:18 19:51 WBC (3.8-10.6) k/uL RBC (4.30-5.90) m/uL Neutrophils # (1.3-7.7) k/uL Lymphocytes # (1.0-4.8) k/uL ABG pCO2 (35-45) mmHg ABG pO2 (83-108) mmHg ABG HCO3 (21-25) mmol/L ABG Total CO2 (19-24) mmol/L Sodium (137-145) mmol/L Carbon Dioxide (22-30) mmol/L BUN (9-20) mg/dL Creatinine (0.66-1.25) mg/dL Glucose (74-99) mg/dL POC Glucose (mg/dL) 219 H 243 H 214 H (75-99) mg/dL 11/22/19 11/22/19 11/22/19 Range/Units 00:06 04:03 05:25 WBC 11.9 H (3.8-10.6) k/uL RBC 4.27 L (4.30-5.90) m/uL Neutrophils # 11.0 H (1.3-7.7) k/uL Lymphocytes # 0.3 L (1.0-4.8) k/uL ABG pCO2 (35-45) mmHg ABG pO2 (83-108) mmHg ABG HCO3 (21-25) mmol/L ABG Total CO2 (19-24) mmol/L Sodium (137-145) mmol/L Carbon Dioxide (22-30) mmol/L BUN (9-20) mg/dL Creatinine (0.66-1.25) mg/dL Glucose (74-99) mg/dL POC Glucose (mg/dL) 254 H 233 H (75-99) mg/dL 11/22/19 11/22/19 11/22/19 Range/Units 05:25 05:30 08:48 WBC (3.8-10.6) k/uL RBC (4.30-5.90) m/uL Neutrophils # (1.3-7.7) k/uL Lymphocytes # (1.0-4.8) k/uL ABG pCO2 51 H (35-45) mmHg ABG pO2 82 L (83-108) mmHg ABG HCO3 36 H (21-25) mmol/L ABG Total CO2 37 H (19-24) mmol/L Sodium 136 L (137-145) mmol/L Carbon Dioxide 36 H (22-30) mmol/L BUN 37 H (9-20) mg/dL Creatinine 0.57 L (0.66-1.25) mg/dL Glucose 251 H (74-99) mg/dL POC Glucose (mg/dL) 248 H (75-99) mg/dL Microbiology - Last 24 Hours (Table) 11/19/19 10:28 Gram Stain - Final Bronchoalviolar Lavage - Left Bronchial Washings Culture - Final Assessment and Plan Assessment: Assessment and Plan Plan: 1. Acute febrile illness most likely secondary to bibasilar pneumonia, gram- negative pneumonia and COVID-19. Atrovent nebulizer treatment every 6 hours as needed, Symbicort twice daily, Solu-Medrol 40 mg IV every 6 hours. Consults with pulmonary medicine and Dr. Ordonez appreciated. Patient has been started on Plaquenil, azithromycin and zinc. 2. Acute hypoxemic respiratory failure that is vent dependent due to Covid 19. Continue current treatment as per pulmonary medicine critical care medicine. Patient has been taking Zithromax 500 mg piggyback every 24 hours, continue with nebulized treatment, continue current vent management as per pulmonary medicine. 3. A. fib with RVR, chronic atrial fibrillation. Heart rate is currently controlled. Patient continued on eliquis 5 mg twice daily, digoxin 250 g daily, Cardizem oral 90 mg 3 times daily, Lopressor 25 mg twice daily. Cardiology consult appreciated. Cardiology is following on an as-needed basis only.. 4. Advanced COPD. Continue Atrovent, Pulmicort twice daily, consult with pulmonary medicine 5. Obstructive sleep apnea. Currently on the ventilator. 6. Known coronary artery disease post angioplasty and stent placement. Patient was scheduled to undergo catheterization at [facility]. 7. Hypertension hypertensive cardiovascular disease. 8. Abdominal aortic aneurysm monitored by vascular surgery. 9. GI prophylaxis. Protonix. 10. DVT prophylaxis. Eliquis. 11. Diabetes mellitus type 2. Continue Levemir and increase to 17 units twice every day along with Humalog per sliding scale, continue to monitor blood glucose level every 4 hours. 12. Overall prognosis guarded. 13. Patient's full code.
[2019-11-22] MEDS: LACTATED RINGERS 1,000 ML IV SCH ×2 (14:18→20:23)
--- NOTE | 2019-11-22 16:43 | PN ---
PROGRESS NOTE PULMONARY/CRITICAL CARE PROGRESS NOTE DATE OF SERVICE: 11/22/2019 CRITICAL CARE TIME: 33 minutes. This is a 69-year-old male who was admitted back on November 09. He initially came in with a COPD exacerbation complicated by left-sided pneumonia. The patient did test positive for COVID-19. He also suffers from atrial fibrillation with RVR, CAD, DJD, and sleep apnea syndrome, among other things. Mid week or so, he took a turn for the worse and ended up being intubated for acute hypoxemic respiratory failure. A central line and arterial line were placed. Because of a large mucus plug suspected in his left mainstem, he underwent bronchoscopy with removal of airway secretions. The patient did have a daily interruption of sedation today. He also had one yesterday. Unfortunately, he did very poorly. He became very tachycardic, tachypneic, and diaphoretic. Also his blood pressure became very high. For that reason, he was placed back on the ventilator. The patient has completed his Plaquenil and his Zithromax. Currently, he is on the volume-assist control mode, rate of 20, tidal volume 450, FiO2 50%, PEEP of 10. Blood gases show pO2 of 82, pCO2 of 51, and a pH of 7.45. He is getting lactated Ringer's at 125 mL an hour, diprivan at 30 mcg/kg per minute, and Vital High Protein at 41 with a goal of 41 mL an hour. All in all, other than the failed weaning trial today, the patient seems to be doing relatively well, although his chest x-ray still shows some dense consolidation to the left lower lobe. PHYSICAL EXAMINATION: VITAL SIGNS: Current vital signs are reviewed. His temperature is 97.5, heart rate 84, respiratory rate 20, blood pressure 115/76, mean was not calculated. His central venous pressure is 13 and his saturations are 98%. GENERAL: He appears in no acute distress. HEENT: Grossly unremarkable. There is an orally placed endotracheal tube and NG tube. NECK: Supple. Full range of motion. No adenopathy. Neck veins are flat. CARDIOVASCULAR: Regular rhythm and rate. Heart rate in the mid 80s. S1 and S2 normal. Heart sounds are distant. LUNGS: Reveal coarse inspiratory and expiratory rhonchi. Breath sounds are equal. ABDOMEN: Obese. Bowel sounds are heard. EXTREMITIES: Intact without cyanosis, clubbing, or significant edema. SKIN: Without rash. NEUROLOGIC: Difficult to assess given his current level of sedation. LABS: Labs are reviewed. White count 11.9, hemoglobin 13.5, hematocrit 40.4, platelet count 176,000. Blood gases have been noted. They include a pO2 of 82, pCO2 of 51, and a pH of 7.45, that is on AC 20, 450, 50% and 10 of PEEP. Sodium 136, potassium 4.2, chloride 98, CO2 36, anion gap is 2, BUN and creatinine were 37 and 0.57. Calcium 9.3. Microbiologic data is all negative including the bronch wash. His most recent chest x-ray from November 21 shows the endotracheal tube to be in good position. The internal jugular catheter is in good position. There was left basilar airspace disease and volume loss with a small left-sided pleural effusion. This is essentially unchanged. Medications are reviewed. Currently, the patient is getting an albuterol inhaler, Eliquis, aspirin, and Zithromax (this will be discontinued), Symbicort, chlorhexidine, digoxin, Cardizem, Dilaudid, insulin, Solu-Medrol, metoprolol, Protonix, potassium replacement, propofol, and zinc. The patient has completed five days of both Plaquenil and Zithromax. ASSESSMENT: 1. Acute hypoxemic respiratory failure requiring intubation with mechanical ventilation, with subsequent bronchoscopy for mucus plugging on November 19, 2019. 2. Mucus plug, left mainstem, causing volume loss and opacification of the left chest, much improved post bronchoscopy. 3. Chronic obstructive pulmonary disease exacerbation complicated by left lower lobe pneumonia, as well as COVID-19 infection, with initial admission back on November 10, 2019. 4. History of paroxysmal atrial fibrillation with rapid ventricular rate. 5. History of coronary artery disease. 6. History of degenerative joint disease. 7. History of sleep apnea syndrome. 8. Obesity. 9. Chronic hypoxemic respiratory failure. PLAN: All in all, the patient is not doing poorly. Unfortunately, he did fail his spontaneous breathing trial today. He became very tachycardic, diaphoretic, tachypneic, and hypertensive. Hopefully, we will be able to try again tomorrow. He has completed his Plaquenil and Zithromax. He remains on tube feeds and diprivan. No additional recommendations are made. Prognosis is guarded. CRITICAL CARE TIME: 33 minutes. MMODL / IJN: [id number] /
[2019-11-22 16:47] LABS: Glucose,Whole Blood 209 mg/dL (75-99)
[2019-11-22] MEDS ORDERED: FUROSEMIDE 10 MG/ML 4 ML VIAL IV STA (20:03)
[2019-11-22 20:40] LABS: Glucose,Whole Blood 206 mg/dL (75-99)
[2019-11-22] MEDS ORDERED: INSULIN DETEMIR (LEVEMIR) 100 UNIT/ML SYR SQ SCH (21:00)
[2019-11-23] MEDS: INSULIN ASPART (NovoLOG) 100 UNIT/ML VIAL SQ SCH ×12 (00:04→23:40)
[2019-11-23 00:26] LABS: Glucose,Whole Blood 231 mg/dL (75-99)
[2019-11-23] MEDS: HYDROmorphone 1 MG/ML 1 ML SYRINGE IVP PRN (01:53)
[2019-11-23] MEDS: PROPOFOL 1,000 MG in EMPTY BAG 1 BAG IV SCH ×4 (02:41→21:52)
[2019-11-23] MEDS: LACTATED RINGERS 1,000 ML IV SCH ×2 (02:44→08:30)
[2019-11-23 04:08] LABS: Glucose,Whole Blood 192 mg/dL (75-99)
[2019-11-23 04:48] LABS: African American GFR (CKD) >90 (>60 ml/min/1.73 sqM); Anion Gap 0 mmol/L; Blood Urea Nitrogen 38 mg/dL (9-20); Calcium 9.2 mg/dL (8.4-10.2); Carbon Dioxide 39 mmol/L (22-30); Chloride 98 mmol/L (98-107); Glucose 244 mg/dL (74-99); Non-African American GFR(CKD) >90 (>60 ml/min/1.73 sqM); Potassium 4.4 mmol/L (3.5-5.1); Sodium 137 mmol/L (137-145)
--- NOTE | 2019-11-23 04:56 | PN ---
PROGRESS NOTE DATE OF SERVICE: 11/22/2019 REASON FOR FOLLOWUP: Acute COVID-19 pneumonia. INTERVAL HISTORY: The patient is currently afebrile. The patient is hemodynamically stable. FiO2 is currently down to 50%. No significant purulent secretion through the ET and no diarrhea has been reported. PHYSICAL EXAMINATION: Blood pressure 138/65 with a pulse of 81, temperature 98. He is 95% on 50% FiO2. General description is an elderly male lying in bed in no distress. RESPIRATORY SYSTEM: Unlabored breathing, decreased intensity of breath sounds. No wheeze. HEART: S1, S2. Regular rate and rhythm. ABDOMEN: Soft, no tenderness. LABS: Hemoglobin 13.5, white count 11.9, BUN of 37, creatinine 0.57. Bronchoscopy culture so far negative. DIAGNOSTIC IMPRESSION AND PLAN: Patient acute respiratory failure which is likely multifactorial in this patient who did have confirmed COVID-19 pneumonia. Patient has completed his 5-day course of Plaquenil. Continue with respiratory support. Monitor clinical course closely. LANDY / BATOOLN: [id number] /
[2019-11-23 05:40] LABS: ABG Base Excess 12.1 mmol/L; ABG HCO3 36 mmol/L (21-25); ABG Oxygen Saturation 96.2 % (94-97); ABG PCO2 55 mmHg (35-45); ABG PH 7.43 (7.35-7.45); ABG PO2 83 mmHg (83-108); ABG TCO2 38 mmol/L (19-24)
[2019-11-23 05:53] LABS: Allen Test Performed? no
[2019-11-23] MEDS: INSULIN DETEMIR (LEVEMIR) 100 UNIT/ML SYR SQ SCH ×2 (06:52→20:49)
[2019-11-23] MEDS: methylPREDNISolone SOD SUCCI 40 MG/ML 1 ML VIAL IV SCH ×3 (06:52→18:31)
--- NOTE | 2019-11-23 07:35 | XR ---
EXAMINATION TYPE: XR chest 1V portable DATE OF EXAM: 11/23/2019 COMPARISON: 11/22/2019 HISTORY: SOB, Follow Up FINDINGS: Indwelling tubes and catheters are unchanged. Persistent left lower lobe opacity which may reflect atelectasis, effusion and/or infiltrate. No sign ificant change. Stable appearance of the cardio-mediastinal structures at this time. Pleural effusion unchanged. IMPRESSION: 1. Stable portable chest. Clinical correlation and follow up until resolution is recommended.
[2019-11-23 07:48] LABS: Basophils % (A) 0 %; Eosinophils % (A) 0 %; HCT 42.5 % (39.0-53.0); HGB 13.8 gm/dL (13.0-17.5); Lymphocytes # (A) 0.3 k/uL (1.0-4.8); Lymphocytes % (A) 2 %; MCH 31.6 pg (25.0-35.0); MCHC 32.4 g/dL (31.0-37.0); MCV 97.6 fL (80.0-100.0); Mean Platelet Volume 9.5; Monocytes # (A) 0.6 k/uL (0-1.0); Monocytes % (A) 5 %; Neutrophils # (A) 11.5 k/uL (1.3-7.7); Neutrophils % (A) 92 %; Platelet Count 187 k/uL (150-450); RBC 4.36 m/uL (4.30-5.90); RDW 12.7 % (11.5-15.5); WBC 12.5 k/uL (3.8-10.6)
[2019-11-23] MEDS: ALBUTEROL INHALER 60 PUFF/8 GM INHALER (MHU) INHALATION SCH ×4 (07:51→19:47)
[2019-11-23] MEDS: SYMBICORT 160-4.5 MCG INHALER INHALATION SCH ×2 (07:52→19:48)
[2019-11-23 08:04] LABS: Glucose,Whole Blood 223 mg/dL (75-99)
[2019-11-23] MEDS: PANTOPRAZOLE 40 MG/10 ML VIAL IVP SCH (08:44)
[2019-11-23] MEDS: METOPROLOL TARTRATE 25 MG TAB PO SCH ×2 (08:45→21:45)
[2019-11-23] MEDS: CHLORHEXIDINE GLUCONATE 15 ML CUP MUCOUS MEM SCH ×2 (08:45→21:45)
[2019-11-23] MEDS: APIXABAN 5 MG TAB PO SCH ×2 (08:45→21:45)
[2019-11-23] MEDS: ASPIRIN 81 MG PO SCH (08:45)
[2019-11-23] MEDS: ZINC SULFATE 220 MG CAP PO SCH (08:46)
[2019-11-23] MEDS: DIGOXIN 250 MCG TAB PO SCH (08:46)
[2019-11-23 09:28] LABS: ABG Base Excess 14.1 mmol/L; ABG HCO3 38 mmol/L (21-25); ABG Oxygen Saturation 91.4 % (94-97); ABG PCO2 52 mmHg (35-45); ABG PH 7.47 (7.35-7.45); ABG PO2 62 mmHg (83-108); ABG TCO2 39 mmol/L (19-24)
[2019-11-23 09:39] LABS: Allen Test Performed? no aline
[2019-11-23] MEDS: DILTIAZEM ORAL 30 MG TAB PO SCH (10:35)
[2019-11-23 11:36] LABS: Glucose,Whole Blood 212 mg/dL (75-99)
[2019-11-23] MEDS ORDERED: DEXMEDETOMIDINE/0.9% NACL(PMX) 400 MCG in EMPTY BAG 1 BAG IV SCH (12:45)
--- NOTE | 2019-11-23 13:23 | P.PN ---
Subjective Progress Note Date: 11/23/19 This is a 69-year-old male patient of Dr. Holland and Dr. Berumen with a previous medical history significant for paroxysmal atrial fibrillation, hypertension and hypertensive cardiovascular disease, hyperlipidemia, obesity with obstructive sleep apnea, CAD with ST elevation [place] post-PCI of the RCA back in August 2016, advanced COPD with FEV1 of 20% of predicted, chronic hypoxic respiratory failure, diabetes mellitus type 2, remote history of tobacco use. Patient has had previous admissions for acute COPD exacerbation as well as atrial flutter or atrial fibrillation with RVR. Patient most recently was hospitalized at [facility] at which time he was treated for atrial fibrillation with RVR, and pneumonia with lactic acidosis. Patient was treated with Rocephin and azithromycin. Patient was discharged home on -. Patient was instructed to hold eliquis as he was scheduled for heart catheterization on Saturday. Patient went to his chemical analytical sampler in [place] and was to be scheduled for heart catheterization today. He then developed fever of 104 at home as well as shortness of breath and productive cough. Patient came into [facility] emergency center for evaluation. Temperature 102.3, heart rate 101 and jumped up to 177, blood pressure 125/70, pulse ox 99%.. He was found to be in A. fib with RVR, influenza and RSV negative. patient was tested for COVID19 which is pending. CBC, CMP unremarkable. Lactic acid 1.9, troponin 0.012, proBNP 1680. Chest x-ray reveals patchy atelectasis at the lung bases is new and increased compared to old exam. No heart failure seen. Repeat Chest x-ray reveals worsening left basilar airspace disease. Primary diagnostic consideration is for unifocal pneumonia. Patient has been admitted to the intensive care unit and consult in place with pulmonary medicine and cardiology consult will be added. child monitor is now A. 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 Cardizem drip will be discontinued and home oral medications resumed. 11/10: Patient is seen in the intensive care unit. He is in isolation for possible Covid 19 infection. Case was reviewed with the nurse outside the patient's room. No hands-on physical exam was performed. Patient is currently on O2 at 6 L nasal cannula with pulse ox of 95%, recommended that patient be weaned down on oxygen level. Temperature max today is 100.3. Heart rate in the 90s and low 100s. Blood pressure 119/76. Repeat blood work reveals a platelet count 108, WBC 7.1, hemoglobin 14.8. Sodium 132, potassium 4.6, chloride 102, CO2 24, BUN 10 and creatinine 0.57. Blood culture 2 no growth at 24 hours. COVID-19 testing remains pending. 11/11: Patient remains in the intensive care unit and has now been downgraded to [facility] with telemetry. Patient's less lethargic today. He is oriented 3. He received Lasix yesterday IV and diuresed well. He has had good urine output. CBC shows normal white count and hemoglobin, platelet count 139. Sodium 133, potassium 4.7, chloride 100, CO2 28, BUN 16 and creatinine 0.56. Pro-calcitonin 0.09. Blood culture no growth at 48 hours 2 specimens. Sputum culture is in progress. Repeat chest x-ray reveals small left pleural effusion and left basilar airspace disease as well as stable right infrahilar airspace disease and may represent atelectasis or developing pneumonia. Incentive spirometry and ABGs ordered. Solu-Medrol 60mg will be decreased to every 8 hours. 11/12: Patient is still having shortness of breath currently at 5 L nasal cannula. We will add Lasix 40 mg IV twice daily. Vancomycin can be discontinued at this point. COVID-19 remains pending. Patient remains in isolation. Patient has been afebrile, heart rate 90s, blood pressure 112/70, pulse ox 95% on 5 L nasal cannula. Repeat lab work reveals platelet count 135. Sodium 133, potassium 4.1, BUN 24 and creatinine 0.64. Blood sugars running in the 200s. Serum culture reveals normal fe. Blood culture no growth 2 specimens. 11/13: Patient is having less symptom with shortness of breath no chest pain at this point. Patient is responding well to current IV antibiotic with much lower temperature. Blood sugar was running high last night his Levemir was increased to 20 units twice a day and Humalog up to 5 units before meals meals plus sliding scale a. Patient COVID-19 remain pending at this point patient remain on isolation. Otherwise feeling well, still seen pulmonary with FEV1 of 20% only with a current hypoxia patient is doing much better with less oxygen concentration. Also patient original plan for elective heart catheter on Saturday with his chemical analytical sampler at [facility] is delay ~febrile illness and infection is completely clear probably will be rescheduled for at least 2-4 weeks from his discharge date. 11/14: Patient is doing well today continued to be more tired and fatigued his hypoxia has been much better his testing still negative for this point, his bloo d sugar still mildly elevated and titrate his insulin today to keep his random blood sugar below 150. Patient is not having any chest pain or shortness of breath is bilateral pneumonia as well treated and managed currently we'll continue to wean him down on oxygen continue diuretics and switch to oral patient expected discharge probably in 48 hours. 11/15: The patient remains in intensive care unit but is a MedSurg overflow. COVID-19 is positive. Solu-Medrol will be discontinued. Blood sugars have been quite high but expect this to improve now that he is off Solu-Medrol. Patient is currently on antibiotics in the form of cefepime and Levaquin. Ultrasound of the chest revealed minimal left-sided effusion. Patient has been afebrile, heart rate 72, blood pressure 126/72, pulse ox 90% on 5 L nasal cannula. 11/16: Patient remains in the intensive care unit but is MedSurg overflow, Covid 19 positive. Patient has been started on a Zithromax then and Plaquenil by Dr. Ordonez. Patient has been hemodynamically stable with blood pressure 131/76, heart rate 72, afebrile. Pulse ox is running 90 on 5 L nasal cannula. Repeat blood work reveals white count of 11.7, CO2 38, BUN 28 creatinine 0.66. Blood sugars are running between 189 and 209. Blood sugars are improved after IV steroids discontinued. Repeat chest x-ray shows persistent left mid to lower lung edema and/or infiltrate silhouetting left heart border and hemidiaphragm. Worsening left upper lung interstitial edema and/or infiltrates noted. Stable left-sided volume loss. Patient denies having any cough at this time, no sputum production. Patient denies having chest pain. Discharge planning is in progress. Patient at this time is unable to go to subacute rehab due to restrictions regarding Covid testing. human resource manager has been in contact with family members and home care including PT have been arranged. Wheelchair will be ordered and arranged by registered nurse hh case manager. Patient may also benefit from walker which family will obtain. We are anticipating discharge in 24-48 hours. Patient has had good urine output and [place]or catheter will be removed later. 11/17: Patient developed increasing shortness of breath during the evening and oxygen was increased to 15 L high flow nasal cannula. Patient was given a dose of Lasix 40 mg IV push and was weaned down to 8 L nasal cannula. Pulse ox then was running 85% and he is currently up to 10 L nasal cannula. Patient is found sitting up in a chair and appears to be in no acute respiratory distress. Patient has been very reluctant to move. Patient has incentive spirometry and is only reaching 75 ML's. WBC 12.2. Sodium 135, potassium 5.5, chloride 91, CO2 38, P1 20 and creatinine 0.57. Blood sugars run between 106 and 133. Troponin from last night was negative, proBNP 1150. Repeat potassium 3.6. child monitor is A. fib controlled rate. Patient is afebrile, heart rate 92, blood pressure 101/70. Patient's has been updated via the phone by Dr. Derek apple. Patient is extremely weak and we will repeat Covid 19 testing in anticipation of need for subacute rehab. Patient's states that she is unable to manage him at home. 11/18: Patient have further decline this morning of his respiratory status with increasing fatigue and is being intubated by Dr. Barry this morning. Chest x- ray reveals worsening opacities occasional left lower lobe and lingula. Worsening infiltrate in the left upper lobe was present. There may be some shift of the mediastinum towards the left. Correlate for atelectasis. Moderate pleural effusion appears stable. Repeat blood work reveals WBC 16.5, sodium 136, potassium 3.6, chloride 90, CO2 40, BUN 13 creatinine 0.72. Repeat troponin negative. ProBNP 732. Patient had a low blood sugar which required treatment this morning of 57. Scheduled Levemir and NovoLog will be discontinued. child monitor is atrial fibrillation with controlled rate. Patient's was contacted via phone and updated regarding patient's current condition, need for intubation and guarded prognosis. 11/19: Patient remains in the intensive care unit intubated and on mechanical ventilation. Patient has been afebrile, heart rate 85, blood pressure 129/59. Patient has not required vasopressor support. WBC 9.5, hemoglobin 11.1, platelet count 137. Sodium 135, potassium 4.4, chloride 94, BUN 39 creatinine 0.75. Blood sugars are running in the 200s. All scheduled insulin was discontinued due to hypoglycemia yesterday. Patient is now on LR and Solu- Medrol, Levemir 10 units added back in. Patient is also on insulin scale. Yesterday, besides being intubated, patient underwent bronchoscopy with airway examination, therapeutic lavage, BAL of the left lung. There was noted mild bronchitis and on the left side a huge mucous plug completely obstructing the proximal left main stem was removed. Repeat chest x-ray this morning reveals endotracheal tube slightly high riding could be advanced. Slightly improved small left pleural effusion and left basilar airspace disease. Pneumonia versus atelectasis. Patient remains on azithromycin, Plaquenil and a zinc. Patient is also followed by infectious disease. Cardiology has signed off. Patient's case was discussed with his nurse. No physical exam done in order to limit exposure to COVID-19 patient while intubated. 11/20: Patient remains in intensive care unit currently intubated on mechanical ventilation he was seen earlier by pulmonary medicine and he was dropped down to 50% and FiO2 he is trying to follow commands by weaning down the sedation however he continues to have significant distress he is in droplet precaution due to COVID-19 status, discussed his plan of care with the nursing staff his blood glucose levels were elevated and he was started on Levemir earlier that was increased to 15 units twice a day along with the Humalog plus sliding scale. 11/21: Patient remains in intensive care unit currently intubated on mechanical ventilation he continues to be followed by pulmonary medicine, trying to wean the sedation off, continues to be in significant distress with droplet precautions due to his Covid 19 status, we will continue to monitor the follow the patient peripherally. 11/22: Patient remains in intensive care unit intubated and on mechanical ventilation. On settings are currently following him 450, FiO2 40, PEEP of 5 which is improved from earlier this morning. A weaning attempt was tried yesterday which failed and also again today which failed. He remains in droplet precautions secondary to COVID-19. Due to this, patient will be monitored peripherally only. Blood sugars have remained high and we will increase Levemir to 20 units twice daily, increase NovoLog to 12 units every 6 hours and continue NovoLog scale. Objective - Vital Signs Vital signs: Vital Signs Temp 97.3 F L 11/23/19 08:00 Pulse 82 11/23/19 10:00 Resp 21 11/23/19 10:00 BP 126/76 11/23/19 10:00 Pulse Ox 94 L 11/23/19 10:00 Intake & Output 11/22/19 11/23/19 11/23/19 18:59 06:59 18:59 Intake Total 2235.131 2517.025 286.653 Output Total 525 1840 115 Balance 1710.131 677.025 171.653 Weight 116.8 kg 116.8 kg Intake: IV 1572 1703 48 Azithromycin 500 mg In 125 Sodium Chloride 0.9% 250 ml @ 250 mls/hr IVPB DAILY JOE Rx#:[id number] Lactated Ringers 1,000 ml 1375 1625 30 @ 10 mls/hr IV .Q24H JOE Rx#:[id number] Normal Saline Pressure 72 78 18 Bag Intake, IV Titration 223.131 273.025 85.653 Amount Propofol 1,000 mg In 223.131 273.025 85.653 Empty Bag 1 bag @ Titrate IV .Q0M JOE Rx#: [id number] Tube Feeding 410 451 123 Other 30 90 30 Output: Urine 525 1840 115 Other: Voiding Method Indwelling Catheter Indwelling Catheter Indwelling Catheter ABP, PAP, CO, CI - Last Documented Arterial Blood Pressure 154/72 - Exam Review of Systems unable to be obtained due to sedation and intubation Physical examination- Gen: This is a 69-year-old man. Patient and ICU bed with no respiratory distress. HEENT: Head is atraumatic, normocephalic. Oral ET and gastric tube in place. Physical exam deferred due to COVID-19 isolation. - Labs CBC & Chem 7: 11/23/19 04:22 11/23/19 04:22 Labs: Abnormal Lab Results - Last 24 Hours (Table) 11/22/19 11/22/19 11/23/19 Range/Units 16:26 20:31 00:01 WBC (3.8-10.6) k/uL Neutrophils # (1.3-7.7) k/uL Lymphocytes # (1.0-4.8) k/uL ABG pH (7.35-7.45) ABG pCO2 (35-45) mmHg ABG pO2 (83-108) mmHg ABG HCO3 (21-25) mmol/L ABG Total CO2 (19-24) mmol/L ABG O2 Saturation (94-97) % Carbon Dioxide (22-30) mmol/L BUN (9-20) mg/dL Creatinine (0.66-1.25) mg/dL Glucose (74-99) mg/dL POC Glucose (mg/dL) 209 H 206 H 231 H (75-99) mg/dL 11/23/19 11/23/19 11/23/19 Range/Units 04:06 04:22 04:22 WBC 12.5 H (3.8-10.6) k/uL Neutrophils # 11.5 H (1.3-7.7) k/uL Lymphocytes # 0.3 L (1.0-4.8) k/uL ABG pH (7.35-7.45) ABG pCO2 (35-45) mmHg ABG pO2 (83-108) mmHg ABG HCO3 (21-25) mmol/L ABG Total CO2 (19-24) mmol/L ABG O2 Saturation (94-97) % Carbon Dioxide 39 H (22-30) mmol/L BUN 38 H (9-20) mg/dL Creatinine 0.60 L (0.66-1.25) mg/dL Glucose 244 H (74-99) mg/dL POC Glucose (mg/dL) 192 H (75-99) mg/dL 11/23/19 11/23/19 11/23/19 Range/Units 05:37 08:02 09:26 WBC (3.8-10.6) k/uL Neutrophils # (1.3-7.7) k/uL Lymphocytes # (1.0-4.8) k/uL ABG pH 7.47 H (7.35-7.45) ABG pCO2 55 H 52 H (35-45) mmHg ABG pO2 62 L (83-108) mmHg ABG HCO3 36 H 38 H (21-25) mmol/L ABG Total CO2 38 H 39 H (19-24) mmol/L ABG O2 Saturation 91.4 L (94-97) % Carbon Dioxide (22-30) mmol/L BUN (9-20) mg/dL Creatinine (0.66-1.25) mg/dL Glucose (74-99) mg/dL POC Glucose (mg/dL) 223 H (75-99) mg/dL 11/23/19 Range/Units 11:34 WBC (3.8-10.6) k/uL Neutrophils # (1.3-7.7) k/uL Lymphocytes # (1.0-4.8) k/uL ABG pH (7.35-7.45) ABG pCO2 (35-45) mmHg ABG pO2 (83-108) mmHg ABG HCO3 (21-25) mmol/L ABG Total CO2 (19-24) mmol/L ABG O2 Saturation (94-97) % Carbon Dioxide (22-30) mmol/L BUN (9-20) mg/dL Creatinine (0.66-1.25) mg/dL Glucose (74-99) mg/dL POC Glucose (mg/dL) 212 H (75-99) mg/dL Microbiology - Last 24 Hours (Table) 11/19/19 10:28 Fungal Culture - Preliminary Bronchoalviolar Lavage - Left [place] albicans Assessment and Plan Plan: 1. Acute febrile illness most likely secondary to bibasilar pneumonia, gram- negative pneumonia and COVID-19. Atrovent nebulizer treatment every 6 hours as needed, Symbicort twice daily, Solu-Medrol 40 mg IV every 6 hours. Consults with pulmonary medicine and Dr. Ordonez appreciated. Patient has been started on Plaquenil, azithromycin and zinc. 2. Acute on chronic hypoxic respiratory failure secondary to Covid 19. Vent management per pulmonary medicine/critical care. Weaning attempts daily. 3. A. fib with RVR, chronic atrial fibrillation. Heart rate is currently controlled. Patient continued on eliquis 5 mg twice daily, digoxin 250 g daily, Cardizem oral 90 mg 3 times daily, Lopressor 25 mg twice daily. Cardiology consult appreciated. Cardiology is following on an as-needed basis only. 4. Advanced COPD. Continue Atrovent, Pulmicort twice daily, consult with pulmonary medicine 5. Obstructive sleep apnea. 6. Known coronary artery disease post angioplasty and stent placement. Patient was scheduled to undergo catheterization at [facility]. 7. Hypertension hypertensive cardiovascular disease. 8. Abdominal aortic aneurysm monitored by vascular surgery. 9. GI prophylaxis. Protonix. 10. DVT prophylaxis. Eliquis. 11. Hyperglycemia secondary to steroids. Increase Levemir to 20 units twice daily, increase NovoLog to 12 units every 6 hours and continue NovoLog scale. Prognosis guarded. CODE STATUS: Full code Discharge plan: To be determined. Impression and plan of care have been directed as dictated by the signing physician. Joy Baxter nurse practitioner acting as scribe for signing physician.
--- NOTE | 2019-11-23 14:29 | P.PN ---
Subjective Progress Note Date: 11/23/19 On 11/23/2019 and seeing the patient for a follow-up regarding respiratory failure. As mentioned earlier, the patient is a case of severe COPD with an FEV1 of 28% of predicted. The patient has a positive infection with COVID 19 . The patient had a left lower lobe atelectasis and the patient underwent a bronchoscopy last week and removal of mucous plugs. Cultures from the bronchoscopy came back all negative. The patient is also diabetic and has an abdominal aortic aneurysm in addition to that he has chronic atrial fibrillation, oriented disease and obstructive sleep apnea. This morning, the patient is assist-control mode of ventilation at the rate of 20 with a tidal volume of 450 and FiO2 of 50% with a PEEP of 10. The patient was sedated this morning with a propofol at the rate of 35 mcg/kg per minute. The patient is receiving vital HP at the rate of 41 mL an hour. The patient apparently was given a sedation holiday yesterday and following that he was given a spelled his breathing trial which he failed and he was placed back on sedation. He is getting another sedation holiday today. Based on today's evaluation, chest x- ray findings are essentially stable. There is some volume loss and atelectasis of the left lower lobe. The blood gas showed a pH of 7.4 3 with a pCO2 of 55 and pO2 of 83. Based on this, I dropped the PEEP down to 5 and I also doubt the FiO2 down to 40%. Subsequent blood gases showed a pH of 7.47 with a pCO2 of 52 and pO2 of 62. The patient's echoes at 12.5. The patient is afebrile for now. The patient is hemodynamically stable. The patient is not requiring any pressors for now. Note that he has a preserved limits. Ejection fraction of 55 %. The patient has been a positive fluid balance of at least 8-9 L over the past 24 hours. He has completed his course of Actonel. He is on IV Solu-Medrol 40 mg every 6 hours. He is still on zinc sulfate 220 mg once a day. He remains in atrial fibrillation. He is slightly bradycardic earlier today and I made recommendations to hold off on Cardizem accordingly. He is on long-term anticoagulation with Eliquis. Objective - Vital Signs Vital signs: Vital Signs Temp 97.7 F 11/23/19 12:00 Pulse 49 L 11/23/19 13:00 Resp 18 11/23/19 13:00 BP 126/76 11/23/19 10:00 Pulse Ox 94 L 11/23/19 13:00 Intake & Output 11/22/19 11/23/19 11/23/19 18:59 06:59 18:59 Intake Total 2235.131 2517.025 501.669 Output Total 525 1840 375 Balance 1710.131 677.025 126.669 Weight 116.8 kg 116.8 kg Intake: IV 1572 1703 96 Azithromycin 500 mg In 125 Sodium Chloride 0.9% 250 ml @ 250 mls/hr IVPB DAILY JOE Rx#:[id number] Lactated Ringers 1,000 ml 1375 1625 60 @ 10 mls/hr IV .Q24H JOE Rx#:[id number] Normal Saline Pressure 72 78 36 Bag Intake, IV Titration 223.131 273.025 99.669 Amount Propofol 1,000 mg In 223.131 273.025 99.669 Empty Bag 1 bag @ Titrate IV .Q0M JOE Rx#: [id number] Tube Feeding 410 451 246 Other 30 90 60 Output: Urine 525 1840 375 Other: Voiding Method Indwelling Catheter Indwelling Catheter Indwelling Catheter ABP, PAP, CO, CI - Last Documented Arterial Blood Pressure 122/51 - Exam Gen. appearance, comfortable nonacute distress intubated on a mechanical ventilator. Orogastric and orotracheal tube are both in place. Head exam was generally normal. There was no scleral icterus or corneal arcus. Mucous membranes were moist. Neck was supple and without jugular venous distension, thyromegaly, or carotid bruits. Carotids were easily palpable bilaterally. There was no adenopathy. Lungs sounds are diminished bilaterally along with some scattered expiratory wheezes throughout the lung rasheed. Cardiac exam revealed the PMI to be normally situated and sized. The rhythm was regular and no extrasystoles were noted during several minutes of auscultation. The first and second heart sounds were normal and physiologic splitting of the second heart sound was noted. There were no murmurs, rubs, clicks, or gallops Abdominal exam revealed normal bowel sounds. The abdomen was soft, non-tender, and without masses, organomegaly, or appreciable enlargement of the abdominal aorta. Examination of the extremities revealed easily palpable radial, femoral and pedal pulses. There was no cyanosis, clubbing or edema. There is trace edema lower extremities bilaterally. Examination of the skin revealed no evidence of significant rashes, suspicious appearing nevi or other concerning lesions. Neurologically the patient is awake specially when he gets weaned off the sedation. The sedation holidays to follow today. - Labs CBC & Chem 7: 11/23/19 04:22 11/23/19 04:22 Labs: Abnormal Lab Results - Last 24 Hours (Table) 11/22/19 11/22/19 11/23/19 Range/Units 16:26 20:31 00:01 WBC (3.8-10.6) k/uL Neutrophils # (1.3-7.7) k/uL Lymphocytes # (1.0-4.8) k/uL ABG pH (7.35-7.45) ABG pCO2 (35-45) mmHg ABG pO2 (83-108) mmHg ABG HCO3 (21-25) mmol/L ABG Total CO2 (19-24) mmol/L ABG O2 Saturation (94-97) % Carbon Dioxide (22-30) mmol/L BUN (9-20) mg/dL Creatinine (0.66-1.25) mg/dL Glucose (74-99) mg/dL POC Glucose (mg/dL) 209 H 206 H 231 H (75-99) mg/dL 11/23/19 11/23/19 11/23/19 Range/Units 04:06 04:22 04:22 WBC 12.5 H (3.8-10.6) k/uL Neutrophils # 11.5 H (1.3-7.7) k/uL Lymphocytes # 0.3 L (1.0-4.8) k/uL ABG pH (7.35-7.45) ABG pCO2 (35-45) mmHg ABG pO2 (83-108) mmHg ABG HCO3 (21-25) mmol/L ABG Total CO2 (19-24) mmol/L ABG O2 Saturation (94-97) % Carbon Dioxide 39 H (22-30) mmol/L BUN 38 H (9-20) mg/dL Creatinine 0.60 L (0.66-1.25) mg/dL Glucose 244 H (74-99) mg/dL POC Glucose (mg/dL) 192 H (75-99) mg/dL 11/23/19 11/23/19 11/23/19 Range/Units 05:37 08:02 09:26 WBC (3.8-10.6) k/uL Neutrophils # (1.3-7.7) k/uL Lymphocytes # (1.0-4.8) k/uL ABG pH 7.47 H (7.35-7.45) ABG pCO2 55 H 52 H (35-45) mmHg ABG pO2 62 L (83-108) mmHg ABG HCO3 36 H 38 H (21-25) mmol/L ABG Total CO2 38 H 39 H (19-24) mmol/L ABG O2 Saturation 91.4 L (94-97) % Carbon Dioxide (22-30) mmol/L BUN (9-20) mg/dL Creatinine (0.66-1.25) mg/dL Glucose (74-99) mg/dL POC Glucose (mg/dL) 223 H (75-99) mg/dL 11/23/19 Range/Units 11:34 WBC (3.8-10.6) k/uL Neutrophils # (1.3-7.7) k/uL Lymphocytes # (1.0-4.8) k/uL ABG pH (7.35-7.45) ABG pCO2 (35-45) mmHg ABG pO2 (83-108) mmHg ABG HCO3 (21-25) mmol/L ABG Total CO2 (19-24) mmol/L ABG O2 Saturation (94-97) % Carbon Dioxide (22-30) mmol/L BUN (9-20) mg/dL Creatinine (0.66-1.25) mg/dL Glucose (74-99) mg/dL POC Glucose (mg/dL) 212 H (75-99) mg/dL Microbiology - Last 24 Hours (Table) 11/19/19 10:28 Fungal Culture - Preliminary Bronchoalviolar Lavage - Left [place] albicans Assessment and Plan Plan: 1 acute left lower lobe pneumonia with volume loss and mucous plugs postintubation, post bronchoscopy and therapeutic it was suctioning and removal of mucous plugs. Cultures are negative and the patient is positive for COVID 19 coronavirus infection. 2 acute coronavirus COVID 19 infection, completed a course of Plaquenil 3 acute hypoxic respiratory failure, currently still intubated on a mechanical ventilator. The patient remains on a FiO2 of 50% with a 10 of PEEP from this morning and a blood gas in the chest x-ray was reviewed 4 COPD, severe with an FEV1 of 28% of predicted 5 history of paroxysmal atrial fibrillation currently on a combination of digoxin and Cardizem and Eliquis for long-term anticoagulation. Slightly bradycardic on today's evaluation 6 positive fluid balance and increased edema lower extremities bilaterally 7 coronary artery disease 8 obstructive sleep apnea. 9 diabetes mellitus 10 abdominal aortic aneurysm Plan Stop sedation and give the patient sedation holiday Continue vent support for the time being and drop the FiO2 down to 40% with a PEEP of 5 and the follow-up blood gas were noted Continue IV Solu Medrol Continue Symbicort HFA Continue Ventolin HFA Enteral feeding for this. Support Levemir insulin 20 units twice a day along with a NovoLog 12 units subcu every 6 hours Hold Cardizem and digoxin for now and monitor the cardiac rate and rhythm May need Precedex as part of sedation process. The patient is getting a bit agitated and restless while of the Diprivan Check digitoxin level Check triglycerides Started patient on Lasix 40 mg every 12 hours We'll continue to follow. Condition is critical and the valuation was on a more than 30 minutes. Time with Patient: Greater than 30
[2019-11-23 15:47] LABS: ABG Base Excess 14.8 mmol/L; ABG HCO3 38 mmol/L (21-25); ABG Oxygen Saturation 91.8 % (94-97); ABG PCO2 50 mmHg (35-45); ABG PH 7.49 (7.35-7.45); ABG PO2 62 mmHg (83-108); ABG TCO2 40 mmol/L (19-24)
[2019-11-23 15:59] LABS: Allen Test Performed? no
[2019-11-23 16:08] LABS: Digoxin 1.2 ng/mL
[2019-11-23 18:02] LABS: Glucose,Whole Blood 186 mg/dL (75-99)
--- NOTE | 2019-11-23 21:56 | PN ---
PROGRESS NOTE DATE OF SERVICE: 11/23/2019 REASON FOR FOLLOWUP: Acute COVID-19 pneumonia. INTERVAL HISTORY: The patient is currently afebrile. The patient is hemodynamically stable. FiO2 is currently at 40%. No significant pleural secretion through the ET. No diarrhea has been reported. PHYSICAL EXAMINATION: Blood pressure 164/75 with a pulse of 105, temperature 98.1. He is 94% on 40% FiO2. General description is an middle-aged male lying in bed in no distress. RESPIRATORY SYSTEM: Unlabored breathing. Decreased breath sounds at the bases. No wheeze. HEART: S1, S2. Regular rate and rhythm. ABDOMEN: Soft. No tenderness. LABS: Hemoglobin is 13.8, white count 12.5. BUN of 38, creatinine 0.60. Bronchoscopy culture with [place] albicans. DIAGNOSTIC IMPRESSION AND PLAN: 1. Patient with acute respiratory failure, which is likely multifactorial in this patient with COVID-19 pneumonia. The patient has received his Plaquenil and Zithromax. Continue with respiratory support. 2. Patient with positive sputum culture with [place], likely representing a colonization and not a [place] pneumonia. We will monitor closely. 3. Mildly elevated white count, most likely due to steroid effect. Continue with supportive care. MMODL / IJN: [id number] / SISSY
[2019-11-23 23:34] LABS: Glucose,Whole Blood 189 mg/dL (75-99)
[2019-11-24] MEDS: methylPREDNISolone SOD SUCCI 40 MG/ML 1 ML VIAL IV SCH ×5 (01:16→23:39)
[2019-11-24] MEDS: PROPOFOL 1,000 MG in EMPTY BAG 1 BAG IV SCH ×4 (02:17→20:50)
[2019-11-24 04:32] LABS: Basophils % (A) 0 %; Eosinophils % (A) 0 %; HCT 42.2 % (39.0-53.0); HGB 13.9 gm/dL (13.0-17.5); Lymphocytes # (A) 0.3 k/uL (1.0-4.8); Lymphocytes % (A) 2 %; MCH 32.1 pg (25.0-35.0); MCV 97.3 fL (80.0-100.0); Mean Platelet Volume 8.8; Monocytes # (A) 0.6 k/uL (0-1.0); Monocytes % (A) 4 %; Neutrophils # (A) 13.6 k/uL (1.3-7.7); Neutrophils % (A) 93 %; Platelet Count 179 k/uL (150-450); RBC 4.34 m/uL (4.30-5.90); RDW 12.6 % (11.5-15.5); WBC 14.5 k/uL (3.8-10.6)
[2019-11-24 05:05] LABS: ABG HCO3 39 mmol/L (21-25); ABG Oxygen Saturation 91.2 % (94-97); ABG PCO2 52 mmHg (35-45); ABG PH 7.48 (7.35-7.45); ABG PO2 61 mmHg (83-108); ABG TCO2 40 mmol/L (19-24); Allen Test Performed? Yes
[2019-11-24 05:06] LABS: African American GFR (CKD) >90 (>60 ml/min/1.73 sqM); Anion Gap -1 mmol/L; Blood Urea Nitrogen 34 mg/dL (9-20); Calcium 9.4 mg/dL (8.4-10.2); Carbon Dioxide 39 mmol/L (22-30); Chloride 99 mmol/L (98-107); Glucose 204 mg/dL (74-99); Non-African American GFR(CKD) >90 (>60 ml/min/1.73 sqM); Potassium 4.6 mmol/L (3.5-5.1); Sodium 137 mmol/L (137-145)
[2019-11-24 05:19] LABS: Glucose,Whole Blood 179 mg/dL (75-99)
[2019-11-24] MEDS: INSULIN ASPART (NovoLOG) 100 UNIT/ML VIAL SQ SCH ×7 (05:20→23:39)
[2019-11-24] MEDS ORDERED: PROPOFOL 10 MG/ML 20 ML VIAL IV ONE (07:00)
[2019-11-24] MEDS ORDERED: SUCCINYLCHOLINE CHLORIDE VIAL 200 MG/10 ML VIAL IV ONE (07:00)
--- NOTE | 2019-11-24 07:27 | XR ---
EXAMINATION TYPE: XR chest 1V portable DATE OF EXAM: 11/24/2019 Comparison: 11/23/2019 Clinical History: 69-year-old male Tube placement Findings: Leftward patient rotation alters the normal cardiomediastinal contours. Left subclavian CVC tip at th e cavoatrial junction. ET tube satisfactory. Distal aspect of the NG tube is cut off from the field-o f-view. Heart is upper limits of normal in size. Dense retrocardiac and left basilar opacity persists . IMPRESSION: Extensive consolidation/atelectasis and probably underlying pleural effusion persist at the left base and retrocardiac region.
--- NOTE | 2019-11-24 07:59 | XR ---
EXAMINATION TYPE: XR chest 1V portable DATE OF EXAM: 11/24/2019 Comparison: 11/24/2019, earlier today Clinical History: 69-year-old male new ET tube and OG tube Findings: ET tube is satisfactory. NG tube courses below the diaphragm, loop within the gastric fundus. Redemon strated volume loss left hemithorax with extensive left basilar retrocardiac opacity. Opacity extends up to the mid lung level. Impression: 1. Satisfactory ET and NG tubes. 2. Volume loss left hemithorax with some corresponding shift of the heart towards the left. Extensive left basilar atelectasis and consolidation extending up to the midlung level, stable to slightly wo rsened compared to earlier today.
[2019-11-24 08:19] LABS: ABG Base Excess 13.4 mmol/L; ABG HCO3 38 mmol/L (21-25); ABG Oxygen Saturation 93.2 % (94-97); ABG PCO2 57 mmHg (35-45); ABG PH 7.43 (7.35-7.45); ABG PO2 69 mmHg (83-108); ABG TCO2 40 mmol/L (19-24); Allen Test Performed? Yes
[2019-11-24] MEDS: ALBUTEROL INHALER 60 PUFF/8 GM INHALER (MHU) INHALATION SCH ×4 (08:26→19:09)
[2019-11-24] MEDS: SYMBICORT 160-4.5 MCG INHALER INHALATION SCH ×2 (08:26→19:18)
[2019-11-24] MEDS: APIXABAN 5 MG TAB PO SCH (10:09)
[2019-11-24] MEDS: DIGOXIN 250 MCG TAB PO SCH (10:09)
[2019-11-24] MEDS: ASPIRIN 81 MG PO SCH (10:09)
[2019-11-24] MEDS: METOPROLOL TARTRATE 25 MG TAB PO SCH ×2 (10:09→20:50)
[2019-11-24] MEDS: INSULIN DETEMIR (LEVEMIR) 100 UNIT/ML SYR SQ SCH ×2 (10:09→20:52)
[2019-11-24] MEDS: CHLORHEXIDINE GLUCONATE 15 ML CUP MUCOUS MEM SCH ×2 (10:09→20:49)
[2019-11-24] MEDS: PANTOPRAZOLE 40 MG/10 ML VIAL IVP SCH (10:10)
[2019-11-24] MEDS: ZINC SULFATE 220 MG CAP PO SCH (10:10)
[2019-11-24] MEDS: LACTATED RINGERS 1,000 ML IV SCH (11:14)
[2019-11-24] MEDS: DILTIAZEM ORAL 60 MG TAB OG-TUBE SCH ×2 (11:15→20:50)
[2019-11-24 12:02] LABS: Glucose,Whole Blood 175 mg/dL (75-99)
--- NOTE | 2019-11-24 13:02 | P.PN ---
Subjective Progress Note Date: 11/24/19 This is a 69-year-old male patient of Dr. Holland and Dr. Berumen with a previous medical history significant for paroxysmal atrial fibrillation, hypertension and hypertensive cardiovascular disease, hyperlipidemia, obesity with obstructive sleep apnea, CAD with ST elevation ME post-PCI of the RCA back in August 2016, advanced COPD with FEV1 of 20% of predicted, chronic hypoxic respiratory failure, diabetes mellitus type 2, remote history of tobacco use. Patient has had previous admissions for acute COPD exacerbation as well as atrial flutter or atrial fibrillation with RVR. Patient most recently was hospitalized at [facility] at which time he was treated for atrial fibrillation with RVR, and pneumonia with lactic acidosis. Patient was treated with Rocephin and azithromycin. Patient was discharged home on -. Patient was instructed to hold eliquis as he was scheduled for heart catheterization on Saturday. 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 He then developed fever of 104 at home as well as shortness of breath and productive cough. Patient came into [facility] for evaluation. Temperature 102.3, heart rate 101 and jumped up to 177, blood pressure 125/70, pulse ox 99%.. He was found to be in A. fib with RVR, influenza and RSV negative. patient was tested for COVID19 which is pending. CBC, CMP unremarkable. Lactic acid 1.9, troponin 0.012, proBNP 1680. Chest x-ray reveals patchy atelectasis at the lung bases is new and increased compared to old exam. No heart failure seen. Repeat Chest x-ray reveals worsening left basilar airspace disease. Primary diagnostic consideration is for unifocal pneumonia. Patient has been admitted to the intensive care unit and consult in place with pulmonary medicine and cardiology consult will be added. roll icer machine is now A. 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 Cardizem drip will be discontinued and home oral medications resumed. 11/10: Patient is seen in the intensive care unit. He is in isolation for possible Covid 19 infection. Case was reviewed with the nurse outside the patient's room. No hands-on physical exam was performed. Patient is currently on O2 at 6 L nasal cannula with pulse ox of 95%, recommended that patient be weaned down on oxygen level. Temperature max today is 100.3. Heart rate in the 90s and low 100s. Blood pressure 119/76. Repeat blood work reveals a platelet count 108, WBC 7.1, hemoglobin 14.8. Sodium 132, potassium 4.6, chloride 102, CO2 24, BUN 10 and creatinine 0.57. Blood culture 2 no growth at 24 hours. COVID-19 testing remains pending. 11/11: Patient remains in the intensive care unit and has now been downgraded to [facility] with telemetry. Patient's less lethargic today. He is oriented 3. He received Lasix yesterday IV and diuresed well. He has had good urine output. CBC shows normal white count and hemoglobin, platelet count 139. Sodium 133, potassium 4.7, chloride 100, CO2 28, BUN 16 and creatinine 0.56. Pro-calcitonin 0.09. Blood culture no growth at 48 hours 2 specimens. Sputum culture is in progress. Repeat chest x-ray reveals small left pleural effusion and left basilar airspace disease as well as stable right infrahilar airspace disease and may represent atelectasis or developing pneumonia. Incentive spirometry and ABGs ordered. Solu-Medrol 60mg will be decreased to every 8 hours. 11/12: Patient is still having shortness of breath currently at 5 L nasal cannula. We will add Lasix 40 mg IV twice daily. Vancomycin can be discontinued at this point. COVID-19 remains pending. Patient remains in isolation. Patient has been afebrile, heart rate 90s, blood pressure 112/70, pulse ox 95% on 5 L nasal cannula. Repeat lab work reveals platelet count 135. Sodium 133, potassium 4.1, BUN 24 and creatinine 0.64. Blood sugars running in the 200s. Serum culture reveals normal fe. Blood culture no growth 2 specimens. 11/13: Patient is having less symptom with shortness of breath no chest pain at this point. Patient is responding well to current IV antibiotic with much lower temperature. Blood sugar was running high last night his Levemir was increased to 20 units twice a day and Humalog up to 5 units before meals meals plus sliding scale a. Patient COVID-19 remain pending at this point patient remain on isolation. Otherwise feeling well, still seen pulmonary with FEV1 of 20% only with a current hypoxia patient is doing much better with less oxygen concentration. 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 11/14: Patient is doing well today continued to be more tired and fatigued his hypoxia has been much better his testing still negative for this point, his bloo d sugar still mildly elevated and titrate his insulin today to keep his random blood sugar below 150. Patient is not having any chest pain or shortness of breath is bilateral pneumonia as well treated and managed currently we'll continue to wean him down on oxygen continue diuretics and switch to oral patient expected discharge probably in 48 hours. 11/15: The patient remains in intensive care unit but is a MedSurg overflow. COVID-19 is positive. Solu-Medrol will be discontinued. Blood sugars have been quite high but expect this to improve now that he is off Solu-Medrol. Patient is currently on antibiotics in the form of cefepime and Levaquin. Ultrasound of the chest revealed minimal left-sided effusion. Patient has been afebrile, heart rate 72, blood pressure 126/72, pulse ox 90% on 5 L nasal cannula. 11/16: Patient remains in the intensive care unit but is MedSurg overflow, Covid 19 positive. Patient has been started on a Zithromax then and Plaquenil by Dr. Ordonez. Patient has been hemodynamically stable with blood pressure 131/76, heart rate 72, afebrile. Pulse ox is running 90 on 5 L nasal cannula. Repeat blood work reveals white count of 11.7, CO2 38, BUN 28 creatinine 0.66. Blood sugars are running between 189 and 209. Blood sugars are improved after IV steroids discontinued. Repeat chest x-ray shows persistent left mid to lower lung edema and/or infiltrate silhouetting left heart border and hemidiaphragm. Worsening left upper lung interstitial edema and/or infiltrates noted. Stable left-sided volume loss. Patient denies having any cough at this time, no sputum production. Patient denies having chest pain. Discharge planning is in progress. Patient at this time is unable to go to subacute rehab due to restrictions regarding Covid testing. bus transportation manager has been in contact with family members and home care including PT have been arranged. Wheelchair will be ordered and arranged by case management social worker. Patient may also benefit from walker which family will obtain. We are anticipating discharge in 24-48 hours. Patient has had good urine output and Mont[place]or catheter will be removed later. 11/17: Patient developed increasing shortness of breath during the evening and oxygen was increased to 15 L high flow nasal cannula. Patient was given a dose of Lasix 40 mg IV push and was weaned down to 8 L nasal cannula. Pulse ox then was running 85% and he is currently up to 10 L nasal cannula. Patient is found sitting up in a chair and appears to be in no acute respiratory distress. Patient has been very reluctant to move. Patient has incentive spirometry and is only reaching 75 ML's. WBC 12.2. Sodium 135, potassium 5.5, chloride 91, CO2 38, P1 20 and creatinine 0.57. Blood sugars run between 106 and 133. Troponin from last night was negative, proBNP 1150. Repeat potassium 3.6. roll icer machine is A. fib controlled rate. Patient is afebrile, heart rate 92, blood pressure 101/70. Patient's has been updated via the phone by Dr. Derek apple. Patient is extremely weak and we will repeat Covid 19 testing in anticipation of need for subacute rehab. Patient's states that she is unable to manage him at home. 11/18: Patient have further decline this morning of his respiratory status with increasing fatigue and is being intubated by Dr. Barry this morning. Chest x- ray reveals worsening opacities occasional left lower lobe and lingula. Worsening infiltrate in the left upper lobe was present. There may be some shift of the mediastinum towards the left. Correlate for atelectasis. Moderate pleural effusion appears stable. Repeat blood work reveals WBC 16.5, sodium 136, potassium 3.6, chloride 90, CO2 40, BUN 13 creatinine 0.72. Repeat troponin negative. ProBNP 732. Patient had a low blood sugar which required treatment this morning of 57. Scheduled Levemir and NovoLog will be discontinued. roll icer machine is atrial fibrillation with controlled rate. Patient's was contacted via phone and updated regarding patient's current condition, need for intubation and guarded prognosis. 11/19: Patient remains in the intensive care unit intubated and on mechanical ventilation. Patient has been afebrile, heart rate 85, blood pressure 129/59. Patient has not required vasopressor support. WBC 9.5, hemoglobin 11.1, platelet count 137. Sodium 135, potassium 4.4, chloride 94, BUN 39 creatinine 0.75. Blood sugars are running in the 200s. All scheduled insulin was discontinued due to hypoglycemia yesterday. Patient is now on LR and Solu- Medrol, Levemir 10 units added back in. Patient is also on insulin scale. Yesterday, besides being intubated, patient underwent bronchoscopy with airway examination, therapeutic lavage, BAL of the left lung. There was noted mild bronchitis and on the left side a huge mucous plug completely obstructing the proximal left main stem was removed. Repeat chest x-ray this morning reveals endotracheal tube slightly high riding could be advanced. Slightly improved small left pleural effusion and left basilar airspace disease. Pneumonia versus atelectasis. Patient remains on azithromycin, Plaquenil and a zinc. Patient is also followed by infectious disease. Cardiology has signed off. Patient's case was discussed with his nurse. No physical exam done in order to limit exposure to COVID-19 patient while intubated. 11/20: Patient remains in intensive care unit currently intubated on mechanical ventilation he was seen earlier by pulmonary medicine and he was dropped down to 50% and FiO2 he is trying to follow commands by weaning down the sedation however he continues to have significant distress he is in droplet precaution due to COVID-19 status, discussed his plan of care with the nursing staff his blood glucose levels were elevated and he was started on Levemir earlier that was increased to 15 units twice a day along with the Humalog plus sliding scale. 11/21: Patient remains in intensive care unit currently intubated on mechanical ventilation he continues to be followed by pulmonary medicine, trying to wean the sedation off, continues to be in significant distress with droplet precautions due to his Covid 19 status, we will continue to monitor the follow the patient peripherally. 11/22: Patient remains in intensive care unit intubated and on mechanical ventilation. On settings are currently following him 450, FiO2 40, PEEP of 5 which is improved from earlier this morning. A weaning attempt was tried yesterday which failed and also again today which failed. He remains in droplet precautions secondary to COVID-19. Due to this, patient will be monitored peripherally only. Blood sugars have remained high and we will increase Levemir to 20 units twice daily, increase NovoLog to 12 units every 6 hours and continue NovoLog scale. 11/23: Patient remains in intensive care unit, intubated and on mechanical ventilation. Patient self extubated and required reintubation today. Patient is on sedation as able to respond to the nurse. Blood sugars are slowly improving. We'll make no changes to his insulins today. He is having good u rine output. General surgery has been consulted for possible PEG tube and trach insertion. Patient will be retested for Covid 19 and remains and droplet precautions. Objective - Vital Signs Vital signs: Vital Signs Temp 98.3 F 11/24/19 04:00 Pulse 114 H 11/24/19 07:00 Resp 28 H 11/24/19 07:00 BP 126/76 11/23/19 10:00 Pulse Ox 93 L 11/24/19 07:00 Intake & Output 11/23/19 11/24/19 11/24/19 18:59 06:59 18:59 Intake Total 843.533 910.208 92.272 Output Total 925 775 Balance -81.467 135.208 92.272 Weight 116.8 kg 114.4 kg Intake: IV 176 192 Lactated Ringers 1,000 ml 110 120 @ 10 mls/hr IV .Q24H JOE Rx#:[id number] Normal Saline Pressure 66 72 Bag Intake, IV Titration 126.533 136.208 92.272 Amount Propofol 1,000 mg In 126.533 136.208 92.272 Empty Bag 1 bag @ Titrate IV .Q0M JOE Rx#: [id number] Tube Feeding 451 492 Other 90 90 Output: Urine 925 775 Other: Voiding Method Indwelling Catheter Indwelling Catheter ABP, PAP, CO, CI - Last Documented Arterial Blood Pressure 177/85 - Exam Review of Systems unable to be obtained due to sedation and intubation Physical examination- Gen: This is a 69-year-old man. Patient and ICU bed with no respiratory distress. HEENT: Head is atraumatic, normocephalic. Oral ET and gastric tube in place. Physical exam deferred due to COVID-19 isolation. - Labs CBC & Chem 7: 11/24/19 04:18 11/24/19 04:18 Labs: Abnormal Lab Results - Last 24 Hours (Table) 11/23/19 11/23/19 11/23/19 Range/Units 11:34 15:40 15:43 WBC (3.8-10.6) k/uL Neutrophils # (1.3-7.7) k/uL Lymphocytes # (1.0-4.8) k/uL ABG pH 7.49 H (7.35-7.45) ABG pCO2 50 H (35-45) mmHg ABG pO2 62 L (83-108) mmHg ABG HCO3 38 H (21-25) mmol/L ABG Total CO2 40 H (19-24) mmol/L ABG O2 Saturation 91.8 L (94-97) % Carbon Dioxide (22-30) mmol/L BUN (9-20) mg/dL Creatinine (0.66-1.25) mg/dL Glucose (74-99) mg/dL POC Glucose (mg/dL) 212 H (75-99) mg/dL Lactate Dehydrogenase 623 H (313-618) U/L 11/23/19 11/23/19 11/24/19 Range/Units 18:01 23:32 04:18 WBC (3.8-10.6) k/uL Neutrophils # (1.3-7.7) k/uL Lymphocytes # (1.0-4.8) k/uL ABG pH (7.35-7.45) ABG pCO2 (35-45) mmHg ABG pO2 (83-108) mmHg ABG HCO3 (21-25) mmol/L ABG Total CO2 (19-24) mmol/L ABG O2 Saturation (94-97) % Carbon Dioxide 39 H (22-30) mmol/L BUN 34 H (9-20) mg/dL Creatinine 0.47 L (0.66-1.25) mg/dL Glucose 204 H (74-99) mg/dL POC Glucose (mg/dL) 186 H 189 H (75-99) mg/dL Lactate Dehydrogenase (313-618) U/L 11/24/19 11/24/19 11/24/19 Range/Units 04:18 05:00 05:16 WBC 14.5 H (3.8-10.6) k/uL Neutrophils # 13.6 H (1.3-7.7) k/uL Lymphocytes # 0.3 L (1.0-4.8) k/uL ABG pH 7.48 H (7.35-7.45) ABG pCO2 52 H (35-45) mmHg ABG pO2 61 L (83-108) mmHg ABG HCO3 39 H (21-25) mmol/L ABG Total CO2 40 H (19-24) mmol/L ABG O2 Saturation 91.2 L (94-97) % Carbon Dioxide (22-30) mmol/L BUN (9-20) mg/dL Creatinine (0.66-1.25) mg/dL Glucose (74-99) mg/dL POC Glucose (mg/dL) 179 H (75-99) mg/dL Lactate Dehydrogenase (313-618) U/L 11/24/19 Range/Units 08:11 WBC (3.8-10.6) k/uL Neutrophils # (1.3-7.7) k/uL Lymphocytes # (1.0-4.8) k/uL ABG pH (7.35-7.45) ABG pCO2 57 H (35-45) mmHg ABG pO2 69 L (83-108) mmHg ABG HCO3 38 H (21-25) mmol/L ABG Total CO2 40 H (19-24) mmol/L ABG O2 Saturation 93.2 L (94-97) % Carbon Dioxide (22-30) mmol/L BUN (9-20) mg/dL Creatinine (0.66-1.25) mg/dL Glucose (74-99) mg/dL POC Glucose (mg/dL) (75-99) mg/dL Lactate Dehydrogenase (313-618) U/L Microbiology - Last 24 Hours (Table) 11/19/19 10:28 Fungal Culture - Preliminary Bronchoalviolar Lavage - Left [place] albicans Assessment and Plan Plan: 1. Acute febrile illness most likely secondary to bibasilar pneumonia, gram- negative pneumonia and COVID-19. Atrovent nebulizer treatment every 6 hours as needed, Symbicort twice daily, Solu-Medrol 40 mg IV every 6 hours. Consults with pulmonary medicine and Dr. José Luis nicholson. Patient has completed course of Plaquenil, azithromycin and zinc. 2. Acute on chronic hypoxic respiratory failure secondary to Covid 19. Vent management per pulmonary medicine/critical care. Weaning attempts daily. 3. A. fib with RVR, chronic atrial fibrillation. Heart rate is currently controlled. Patient continued on eliquis 5 mg twice daily, digoxin 250 g daily, Cardizem oral 90 mg 3 times daily, Lopressor 25 mg twice daily. Cardiology consult appreciated. Cardiology is following on an as-needed basis only. 4. Advanced COPD. Continue Atrovent, Pulmicort twice daily, consult with pulmonary medicine 5. Obstructive sleep apnea. 6. Known coronary artery disease post angioplasty and stent placement. Patient was scheduled to undergo catheterization at [facility]. 7. Hypertension hypertensive cardiovascular disease. 8. Abdominal aortic aneurysm monitored by vascular surgery. 9. GI prophylaxis. Protonix. 10. DVT prophylaxis. Eliquis. 11. Hyperglycemia secondary to steroids. Increase Levemir to 20 units twice daily, increase NovoLog to 12 units every 6 hours and continue NovoLog scale. 12. Severe protein calorie malnutrition secondary to intubation. Continue tube feeds. Consult with Dr. Cline for PEG tube and trach. Prognosis guarded. CODE STATUS: Full code Discharge plan: To be determined. Impression and plan of care have been directed as dictated by the signing physician. Joy Baxter nurse practitioner acting as scribe for signing physician.
--- NOTE | 2019-11-24 13:19 | P.GSCN ---
History of Present Illness Consult date: 11/24/19 Reason for Consult: trach and peg Requesting physician: Nicolasa Berumen History of present illness: CHIEF COMPLAINT: Trach and PEG HISTORY OF PRESENT ILLNESS: 69-year-old male who is admitted to the intensive care unit. Patient remains on mechanical ventilation secondary to acute COVID 19 infection and pneumonia. Patient has been unable to wean from the ventilator. Hence general surgery was consulted for possible trach and PEG. PAST MEDICAL HISTORY: See list. PAST SURGICAL HISTORY: See list. SOCIAL HISTORY: No illicit drug use. REVIEW OF SYSTEMS: Unable to obtain secondary to mechanical ventilation PHYSICAL EXAM: VITAL SIGNS: Reviewed. GENERAL: Well-developed in no acute distress. HEENT: ET tube noted. No sclera icterus. Extraocular movements grossly intact. Moist buccal mucosa. Head is atraumatic, normocephalic. ABDOMEN: Soft. Nondistended. Nontender. NEUROLOGIC: Sedated on mechanical ventilation LABORATORY DATA: WBC 14.5. Hemoglobin 13.9. Platelet count 179. IMAGING: Chest x-ray: Volume loss left hemothorax with some corresponding shift of the he art with the left. Extensive left basilar atelectasis and consolidation extending up to the midlung level. Stable to slightly worsened compared to earlier exam. ASSESSMENT: 1. Acute hypoxic respiratory failure 2. Acute left lower lobe pneumonia 3. Acute COVID 19 infection PLAN: -Discontinue Eliquis -Trach and PEG scheduled for Nurse practitioner note has been reviewed by physician. Signing provider agrees with the documented findings, assessment, and plan of care. Past Medical History Past Medical History: Atrial Fibrillation, Coronary Artery Disease (CAD), COPD, GERD/Reflux, Hyperlipidemia, Myocardial Infarction (NM), Osteoarthritis (OA), Sleep Apnea/CPAP/BIPAP, Vascular Disorder Additional Past Medical History / Comment(s): COPD with a baseline FEV1 of 20% of predicted, obstructive sleep apnea moderate severe with an AHI of 17, chronic atrial fibrillation, coronary artery disease, obesity with a BMI of 38.7, hyperlipidemia, coronary artery disease, abdominal aortic aneurysm, history of right lower extremity phlebitis, history of right wrist fracture, previous history of myocardial infarction Last Myocardial Infarction Date:: 08/2016 History of Any Multi-Drug Resistant Organisms: MRSA Year Discovered:: 2007 MDRO Source:: leg Past Surgical History: Appendectomy, Heart Catheterization, Heart Catheterizat ion With Stent, Tonsillectomy Additional Past Surgical History / Comment(s): Colonoscopy, R leg vein stripping. Past Anesthesia/Blood Transfusion Reactions: No Reported Reaction Date of Last Stent Placement:: 09/02/16 Past Psychological History: No Psychological Hx Reported Additional Psychological History / Comment(s): Pt resides with spouse. He is independent. He has home oxygen and a nebulizer and a glucometer. Smoking Status: Former smoker Past Alcohol Use History: Rare Additional Past Alcohol Use History / Comment(s): Patient was a smoker of 2-3 packs per day for a number of years quit 20 years ago. He denies any alcohol use. He lives at home with his . He also chewed during that time frame. Past Drug Use History: None Reported - Past Family History Father Family Medical History: No Reported History Additional Family Medical History / Comment(s): in his 80's HAD HEART ISSUES Mother Family Medical History: Dementia Additional Family Medical History / Comment(s): Mother in her 80's Sister(s) Family Medical History: CVA/TIA Additional Family Medical History / Comment(s): Patient has 2 sisters. One has history of stroke in 1 has no major medical problems that he is aware of. Patient does not have any brothers. Daughter(s) Family Medical History: No Reported History Son(s) Family Medical History: No Reported History Additional Family Medical History / Comment(s): Patient has 1 son and 2 daughters with no major medical problems. Medications and Allergies Home Medications Medication Instructions Recorded Confirmed Type Atorvastatin [Lipitor] 80 mg PO HS #30 tab 08/18/16 11/09/19 Rx Albuterol Sulfate [Proair Hfa] 2 puff INHALATION RT-Q6H PRN 11/07/17 11/09/19 History Aspirin 81 mg PO DAILY chew 12/11/17 11/09/19 Rx Apixaban [Eliquis] 5 mg PO BID #60 tab 10/28/18 11/09/19 Rx Diltiazem HCl [Cardizem] 90 mg PO TID #90 tablet 10/28/18 11/09/19 Rx Budesonide [Pulmicort] 0.5 mg INHALATION RT-BID 06/29/19 11/09/19 History Digoxin [Lanoxin] 250 mcg PO DAILY #30 tab 07/07/19 11/09/19 Rx Metoprolol Tartrate [Lopressor] 25 mg PO BID #60 tab 07/07/19 11/09/19 Rx Albuterol Nebulized [Ventolin 2.5 mg INHALATION RT-QID 11/09/19 11/10/19 History Nebulized] Breathe Sinus And Lungs Health 1 cap PO DAILY 11/09/19 11/09/19 History Ipratropium Nebulized [Atrovent 0.5 mg INHALATION RT-Q6H PRN 11/09/19 11/09/19 History Nebulized 0.2 MG/ML] Allergies Allergy/AdvReac Type Severity Reaction Status Date / Time Penicillins Allergy Anaphylaxis Verified 11/09/19 22:55 sulfamethoxazole Allergy Rash/Hives Verified 11/09/19 22:55 [From Bactrim] trimethoprim [From Bactrim] Allergy Rash/Hives Verified 11/09/19 22:55 Surgical - Exam Vital Signs Temp Pulse Resp BP Pulse Ox 102.3 F H 101 H 28 H 125/70 99 11/09/19 21:29 11/09/19 21:29 11/09/19 21:29 11/09/19 21:29 11/09/19 21:29 Results - Labs 11/24/19 04:18 11/24/19 04:18 Abnormal Lab Results - Last 24 Hours (Table) 11/23/19 11/23/19 11/23/19 Range/Units 11:34 15:40 15:43 WBC (3.8-10.6) k/uL Neutrophils # (1.3-7.7) k/uL Lymphocytes # (1.0-4.8) k/uL ABG pH 7.49 H (7.35-7.45) ABG pCO2 50 H (35-45) mmHg ABG pO2 62 L (83-108) mmHg ABG HCO3 38 H (21-25) mmol/L ABG Total CO2 40 H (19-24) mmol/L ABG O2 Saturation 91.8 L (94-97) % Carbon Dioxide (22-30) mmol/L BUN (9-20) mg/dL Creatinine (0.66-1.25) mg/dL Glucose (74-99) mg/dL POC Glucose (mg/dL) 212 H (75-99) mg/dL Lactate Dehydrogenase 623 H (313-618) U/L 11/23/19 11/23/19 11/24/19 Range/Units 18:01 23:32 04:18 WBC (3.8-10.6) k/uL Neutrophils # (1.3-7.7) k/uL Lymphocytes # (1.0-4.8) k/uL ABG pH (7.35-7.45) ABG pCO2 (35-45) mmHg ABG pO2 (83-108) mmHg ABG HCO3 (21-25) mmol/L ABG Total CO2 (19-24) mmol/L ABG O2 Saturation (94-97) % Carbon Dioxide 39 H (22-30) mmol/L BUN 34 H (9-20) mg/dL Creatinine 0.47 L (0.66-1.25) mg/dL Glucose 204 H (74-99) mg/dL POC Glucose (mg/dL) 186 H 189 H (75-99) mg/dL Lactate Dehydrogenase (313-618) U/L 11/24/19 11/24/19 11/24/19 Range/Units 04:18 05:00 05:16 WBC 14.5 H (3.8-10.6) k/uL Neutrophils # 13.6 H (1.3-7.7) k/uL Lymphocytes # 0.3 L (1.0-4.8) k/uL ABG pH 7.48 H (7.35-7.45) ABG pCO2 52 H (35-45) mmHg ABG pO2 61 L (83-108) mmHg ABG HCO3 39 H (21-25) mmol/L ABG Total CO2 40 H (19-24) mmol/L ABG O2 Saturation 91.2 L (94-97) % Carbon Dioxide (22-30) mmol/L BUN (9-20) mg/dL Creatinine (0.66-1.25) mg/dL Glucose (74-99) mg/dL POC Glucose (mg/dL) 179 H (75-99) mg/dL Lactate Dehydrogenase (313-618) U/L 11/24/19 Range/Units 08:11 WBC (3.8-10.6) k/uL Neutrophils # (1.3-7.7) k/uL Lymphocytes # (1.0-4.8) k/uL ABG pH (7.35-7.45) ABG pCO2 57 H (35-45) mmHg ABG pO2 69 L (83-108) mmHg ABG HCO3 38 H (21-25) mmol/L ABG Total CO2 40 H (19-24) mmol/L ABG O2 Saturation 93.2 L (94-97) % Carbon Dioxide (22-30) mmol/L BUN (9-20) mg/dL Creatinine (0.66-1.25) mg/dL Glucose (74-99) mg/dL POC Glucose (mg/dL) (75-99) mg/dL Lactate Dehydrogenase (313-618) U/L Microbiology - Last 24 Hours (Table) 11/19/19 10:28 Fungal Culture - Preliminary Bronchoalviolar Lavage - Left [place] albicans Diabetes panel 11/24/19 Range/Units 04:18 Sodium 137 (137-145) mmol/L Potassium 4.6 (3.5-5.1) mmol/L Chloride 99 (98-107) mmol/L Carbon Dioxide 39 H (22-30) mmol/L BUN 34 H (9-20) mg/dL Creatinine 0.47 L (0.66-1.25) mg/dL Glucose 204 H (74-99) mg/dL Calcium 9.4 (8.4-10.2) mg/dL Calcium panel 11/24/19 Range/Units 04:18 Calcium 9.4 (8.4-10.2) mg/dL Pituitary panel 11/24/19 Range/Units 04:18 Sodium 137 (137-145) mmol/L Potassium 4.6 (3.5-5.1) mmol/L Chloride 99 (98-107) mmol/L Carbon Dioxide 39 H (22-30) mmol/L BUN 34 H (9-20) mg/dL Creatinine 0.47 L (0.66-1.25) mg/dL Glucose 204 H (74-99) mg/dL Calcium 9.4 (8.4-10.2) mg/dL Adrenal panel 11/24/19 Range/Units 04:18 Sodium 137 (137-145) mmol/L Potassium 4.6 (3.5-5.1) mmol/L Chloride 99 (98-107) mmol/L Carbon Dioxide 39 H (22-30) mmol/L BUN 34 H (9-20) mg/dL Creatinine 0.47 L (0.66-1.25) mg/dL Glucose 204 H (74-99) mg/dL Calcium 9.4 (8.4-10.2) mg/dL
--- NOTE | 2019-11-24 13:41 | P.PN ---
Subjective Progress Note Date: 11/24/19 On 11/23/2019 and seeing the patient for a follow-up regarding respiratory failure. As mentioned earlier, the patient is a case of severe COPD with an FEV1 of 28% of predicted. The patient has a positive infection with COVID 19 . The patient had a left lower lobe atelectasis and the patient underwent a bronchoscopy last week and removal of mucous plugs. Cultures from the bronchoscopy came back all negative. The patient is also diabetic and has an abdominal aortic aneurysm in addition to that he has chronic atrial fibrillation, oriented disease and obstructive sleep apnea. This morning, the patient is assist-control mode of ventilation at the rate of 20 with a tidal volume of 450 and FiO2 of 50% with a PEEP of 10. The patient was sedated this morning with a propofol at the rate of 35 mcg/kg per minute. The patient is receiving vital HP at the rate of 41 mL an hour. The patient apparently was given a sedation holiday yesterday and following that he was given a spelled his breathing trial which he failed and he was placed back on sedation. He is getting another sedation holiday today. Based on today's evaluation, chest x- ray findings are essentially stable. There is some volume loss and atelectasis of the left lower lobe. The blood gas showed a pH of 7.4 3 with a pCO2 of 55 and pO2 of 83. Based on this, I dropped the PEEP down to 5 and I also doubt the FiO2 down to 40%. Subsequent blood gases showed a pH of 7.47 with a pCO2 of 52 and pO2 of 62. The patient's echoes at 12.5. The patient is afebrile for now. The patient is hemodynamically stable. The patient is not requiring any pressors for now. Note that he has a preserved limits. Ejection fraction of 55 %. The patient has been a positive fluid balance of at least 8-9 L over the past 24 hours. He has completed his course of Actonel. He is on IV Solu-Medrol 40 mg every 6 hours. He is still on zinc sulfate 220 mg once a day. He remains in atrial fibrillation. He is slightly bradycardic earlier today and I made recommendations to hold off on Cardizem accordingly. He is on long-term anticoagulation with Eliquis. On today's evaluation of 11/24/2019 and seeing the patient for a follow-up. Thi s is a patient with advanced COPD with an FEV1 of 28% of predicted and the patient has a left lower lobe pneumonia/atelectasis. Furthermore the patient was confirmed to be a Covid 19 positive pneumonia. Note that the patient had improved somewhat in his oxygenation. I was able to cut down his PEEP down to 5 and off FiO2 down to 40% on yesterday's sounds. Overnight the patient became hypoxic. The PEEP had to be increased up to 10 and FiO2 was brought up to 70%. Earlier this morning, the patient self extubated. The patient had to be reintubated by [employer]. For now, the patient is back on a mechanical ventilator and the patient is currently sedated with propofol at the rate of 35 g per KG per minute. He remains in atrial fibrillation with a heart rate between 110 and 130. He is on assist control mode at the rate of 20 with a tidal volume of 450 and FiO2 of 75% with a PEEP of 10. Peak airway pressures around 31 with a setting of a pressure of 21. The patient is afebrile. The patient is hemodynamically stable. This is going to be a difficult wean. I suggested the possibility of doing a tracheostomy tube insertion and a PEG tube insertion. The patient has been confirmed to be a Covid 19 case back in 11/09/2019. This will be repeated today. Note that the test was repeated on 11/18/2019. If there is also negative, would say will be rather sensitive to proceed with a PEG and tracheostomy tube insertion. For that reason general surgical consultation was obtained. The patient's blood gases post intubation showed a pH of 7.43 with a pCO2 of 57 and pO2 of 69. Chest x-ray shows some volume loss and atelectasis in the left lung base. ET tube is in a good location for now. He is tolerating enteral feeding for enteral support. His digoxin level was within normal limits.he has completed his course of Plaquenil. He is still on zinc sulfate. He remains on IV Solu-Medrol 40 mg every 6 hours in addition to Symbicort and albuterol HFA 4 times a day [id number]. He was taken off Eliquis in preparation for possible PEG and trach. Objective - Vital Signs Vital signs: Vital Signs Temp 97.9 F 11/24/19 09:00 Pulse 108 H 11/24/19 10:00 Resp 20 11/24/19 10:00 BP 126/76 11/24/19 10:00 Pulse Ox 91 L 11/24/19 10:00 Intake & Output 11/23/19 11/24/19 11/24/19 18:59 06:59 18:59 Intake Total 843.533 910.208 246.019 Output Total 925 775 310 Balance -81.467 135.208 -63.981 Weight 116.8 kg 114.4 kg 114.4 kg Intake: IV 176 192 64 Lactated Ringers 1,000 ml 110 120 40 @ 10 mls/hr IV .Q24H JOE Rx#:[id number] Normal Saline Pressure 66 72 24 Bag Intake, IV Titration 126.533 136.208 182.019 Amount Propofol 1,000 mg In 126.533 136.208 182.019 Empty Bag 1 bag @ Titrate IV .Q0M JOE Rx#: [id number] Tube Feeding 451 492 Other 90 90 Output: Urine 925 775 310 Other: Voiding Method Indwelling Catheter Indwelling Catheter Indwelling Catheter ABP, PAP, CO, CI - Last Documented Arterial Blood Pressure 142/70 - Exam Gen. appearance, comfortable nonacute distress intubated on a mechanical ventilator. Orogastric and orotracheal tube are both in place. Head exam was generally normal. There was no scleral icterus or corneal arcus. Mucous membranes were moist. Neck was supple and without jugular venous distension, thyromegaly, or carotid bruits. Carotids were easily palpable bilaterally. There was no adenopathy. Lungs sounds are diminished bilaterally along with some scattered expiratory wheezes throughout the lung rasheed. Cardiac exam revealed the PMI to be normally situated and sized. The rhythm was regular and no extrasystoles were noted during several minutes of auscultation. The first and second heart sounds were normal and physiologic splitting of the second heart sound was noted. There were no murmurs, rubs, clicks, or gallops Abdominal exam revealed normal bowel sounds. The abdomen was soft, non-tender, and without masses, organomegaly, or appreciable enlargement of the abdominal aorta. Examination of the extremities revealed easily palpable radial, femoral and pedal pulses. There was no cyanosis, clubbing or edema. There is trace edema lower extremities bilaterally. Examination of the skin revealed no evidence of significant rashes, suspicious appearing nevi or other concerning lesions. Neurologically the patient is awake specially when he gets weaned off the sedation. The sedation holidays to follow today. - Labs CBC & Chem 7: 11/24/19 04:18 11/24/19 04:18 Labs: Abnormal Lab Results - Last 24 Hours (Table) 11/23/19 11/23/19 11/23/19 Range/Units 15:40 15:43 18:01 WBC (3.8-10.6) k/uL Neutrophils # (1.3-7.7) k/uL Lymphocytes # (1.0-4.8) k/uL ABG pH 7.49 H (7.35-7.45) ABG pCO2 50 H (35-45) mmHg ABG pO2 62 L (83-108) mmHg ABG HCO3 38 H (21-25) mmol/L ABG Total CO2 40 H (19-24) mmol/L ABG O2 Saturation 91.8 L (94-97) % Carbon Dioxide (22-30) mmol/L BUN (9-20) mg/dL Creatinine (0.66-1.25) mg/dL Glucose (74-99) mg/dL POC Glucose (mg/dL) 186 H (75-99) mg/dL Lactate Dehydrogenase 623 H (313-618) U/L 11/23/19 11/24/19 11/24/19 Range/Units 23:32 04:18 04:18 WBC 14.5 H (3.8-10.6) k/uL Neutrophils # 13.6 H (1.3-7.7) k/uL Lymphocytes # 0.3 L (1.0-4.8) k/uL ABG pH (7.35-7.45) ABG pCO2 (35-45) mmHg ABG pO2 (83-108) mmHg ABG HCO3 (21-25) mmol/L ABG Total CO2 (19-24) mmol/L ABG O2 Saturation (94-97) % Carbon Dioxide 39 H (22-30) mmol/L BUN 34 H (9-20) mg/dL Creatinine 0.47 L (0.66-1.25) mg/dL Glucose 204 H (74-99) mg/dL POC Glucose (mg/dL) 189 H (75-99) mg/dL Lactate Dehydrogenase (313-618) U/L 11/24/19 11/24/19 11/24/19 Range/Units 05:00 05:16 08:11 WBC (3.8-10.6) k/uL Neutrophils # (1.3-7.7) k/uL Lymphocytes # (1.0-4.8) k/uL ABG pH 7.48 H (7.35-7.45) ABG pCO2 52 H 57 H (35-45) mmHg ABG pO2 61 L 69 L (83-108) mmHg ABG HCO3 39 H 38 H (21-25) mmol/L ABG Total CO2 40 H 40 H (19-24) mmol/L ABG O2 Saturation 91.2 L 93.2 L (94-97) % Carbon Dioxide (22-30) mmol/L BUN (9-20) mg/dL Creatinine (0.66-1.25) mg/dL Glucose (74-99) mg/dL POC Glucose (mg/dL) 179 H (75-99) mg/dL Lactate Dehydrogenase (313-618) U/L 11/24/19 Range/Units 12:00 WBC (3.8-10.6) k/uL Neutrophils # (1.3-7.7) k/uL Lymphocytes # (1.0-4.8) k/uL ABG pH (7.35-7.45) ABG pCO2 (35-45) mmHg ABG pO2 (83-108) mmHg ABG HCO3 (21-25) mmol/L ABG Total CO2 (19-24) mmol/L ABG O2 Saturation (94-97) % Carbon Dioxide (22-30) mmol/L BUN (9-20) mg/dL Creatinine (0.66-1.25) mg/dL Glucose (74-99) mg/dL POC Glucose (mg/dL) 175 H (75-99) mg/dL Lactate Dehydrogenase (313-618) U/L Microbiology - Last 24 Hours (Table) 11/19/19 10:28 Fungal Culture - Preliminary Bronchoalviolar Lavage - Left [place] albicans Assessment and Plan Plan: 1 acute left lower lobe pneumonia with volume loss and mucous plugs postintubation, post bronchoscopy and therapeutic it was suctioning and removal of mucous plugs. Cultures are negative and the patient is positive for COVID 19 coronavirus infection. The patient self extubated himself today. He did failed. He had to be reintubated. The post intubation chest x-ray shows volume loss and atelectasis the left lung base. The patient is being considered for a PEG and trach due to his prolonged respiratory failure. Meanwhile, we are reevaluating his Covid 19 status and hopefully this were not to be negative. The patient was originally diagnosed having Covid 19 on 11/09/2019. 2 acute coronavirus COVID 19 infection, completed a course of Plaquenil 3 acute hypoxic respiratory failure, currently still intubated on a mechanical ventilator. The patient remains on a FiO2 of 75 % with a 10 of PEEP from this morning and a blood gas in the chest x-ray was reviewed 4 COPD, severe with an FEV1 of 28% of predicted 5 history of paroxysmal atrial fibrillation currently on a combination of digoxin and Cardizem and Eliquis for long-term anticoagulation. Slightly tachycardic on today's evaluation 6 positive fluid balance and increased edema lower extremities bilaterally 7 coronary artery disease 8 obstructive sleep apnea. 9 diabetes mellitus 10 abdominal aortic aneurysm Plan Repeat the Covid 19 evaluation to assess for viral clearing Continue vent support Consult general surgery for possible insertion of a tracheostomy and a PEG tube Stop Eliquis for now Continue digoxin and drop the Cardizem dose to 60 mg by mouth twice a day for rate control Enterofeeding for nutritional support Levemir insulin 20 units twice a day along with NovoLog 12 units every 6 hours Digoxin level is within normal limits Stop sedation and give the patient sedation holiday Continue vent support for the time being and drop the FiO2 down to 40% with a PEEP of 5 and the follow-up blood gas were noted Continue IV Solu Medrol Continue Symbicort HFA Continue Ventolin HFA Enteral feeding for this. Support Levemir insulin 20 units twice a day along with a NovoLog 12 units subcu every 6 hours Hold diuretics for now We'll continue to follow. Condition is critical and the valuation was on a more than 30 minutes. Time with Patient: Greater than 30
[2019-11-24 17:22] LABS: Glucose,Whole Blood 184 mg/dL (75-99)
--- NOTE | 2019-11-24 19:04 | PN ---
PROGRESS NOTE DATE OF SERVICE: 11/24/2019 REASON FOR FOLLOWUP: Acute COVID-19 pneumonia. INTERVAL HISTORY: The patient is currently afebrile. The patient is hemodynamically stable. FiO2 is currently 75%. No need for any pressor support. No diarrhea has been reported. Apparently the patient did self-extubate himself yesterday and had to be re-intubated. PHYSICAL EXAMINATION: Blood pressure 141/65 with a pulse of 88, temperature 98.1. He is 97% on 75% FiO2. General description is an elderly male lying in bed in no distress. RESPIRATORY SYSTEM: Unlabored breathing with decreased breath sounds at the base. No wheeze. HEART: S1, S2. Regular rate and rhythm. ABDOMEN: Soft. No tenderness. EXTREMITIES: No edema of the feet. LABS: Hemoglobin is 13.9, white count 14.5, BUN of 34, creatinine 0.47. Bronch wash with [place] albicans. DIAGNOSTIC IMPRESSION AND PLAN: 1. Patient with acute respiratory failure which is likely multifactorial with a component of acute viral pneumonia, for which the patient has completed his Plaquenil therapy. We will monitor the patient closely and adjust medication further if needed. 2. Patient with elevated white count, more likely due to steroids the patient is on. Continue with supportive care. MMODL / IJN: [id number] /
[2019-11-25 00:03] LABS: Glucose,Whole Blood 150 mg/dL (75-99)
[2019-11-25] MEDS: INSULIN ASPART (NovoLOG) 100 UNIT/ML VIAL SQ SCH ×8 (00:05→23:35)
[2019-11-25] MEDS: PROPOFOL 1,000 MG in EMPTY BAG 1 BAG IV SCH ×5 (02:26→21:43)
[2019-11-25 05:02] LABS: ABG Base Excess 14.6 mmol/L; ABG HCO3 38 mmol/L (21-25); ABG Oxygen Saturation 98.4 % (94-97); ABG PCO2 52 mmHg (35-45); ABG PH 7.47 (7.35-7.45); ABG PO2 103 mmHg (83-108); ABG TCO2 40 mmol/L (19-24); Allen Test Performed? Yes
[2019-11-25 05:47] LABS: African American GFR (CKD) >90 (>60 ml/min/1.73 sqM); Anion Gap 1 mmol/L; Blood Urea Nitrogen 38 mg/dL (9-20); Calcium 9.2 mg/dL (8.4-10.2); Carbon Dioxide 38 mmol/L (22-30); Chloride 101 mmol/L (98-107); Glucose 167 mg/dL (74-99); Non-African American GFR(CKD) >90 (>60 ml/min/1.73 sqM); Potassium 4.5 mmol/L (3.5-5.1); Sodium 140 mmol/L (137-145); Triglycerides 122 mg/dL (<150)
[2019-11-25] MEDS: methylPREDNISolone SOD SUCCI 40 MG/ML 1 ML VIAL IV SCH ×4 (06:31→23:35)
[2019-11-25] MEDS: INSULIN DETEMIR (LEVEMIR) 100 UNIT/ML SYR SQ SCH ×2 (06:31→20:09)
[2019-11-25 06:40] LABS: Glucose,Whole Blood 168 mg/dL (75-99)
[2019-11-25 07:27] LABS: Basophils % (A) 0 %; Eosinophils % (A) 0 %; HCT 43.5 % (39.0-53.0); HGB 14.4 gm/dL (13.0-17.5); Lymphocytes # (A) 0.4 k/uL (1.0-4.8); Lymphocytes % (A) 2 %; MCH 32.4 pg (25.0-35.0); MCV 98.1 fL (80.0-100.0); Mean Platelet Volume 9.3; Monocytes # (A) 0.4 k/uL (0-1.0); Monocytes % (A) 3 %; Neutrophils # (A) 14.3 k/uL (1.3-7.7); Neutrophils % (A) 94 %; Platelet Count 177 k/uL (150-450); RBC 4.44 m/uL (4.30-5.90); RDW 12.7 % (11.5-15.5); WBC 15.1 k/uL (3.8-10.6)
[2019-11-25] MEDS: ALBUTEROL INHALER 60 PUFF/8 GM INHALER (MHU) INHALATION SCH ×4 (07:38→20:56)
[2019-11-25] MEDS: SYMBICORT 160-4.5 MCG INHALER INHALATION SCH ×2 (07:38→20:56)
--- NOTE | 2019-11-25 07:47 | XR ---
EXAMINATION TYPE: XR chest 1V portable DATE OF EXAM: 11/25/2019 Comparison: 11/24/2019 Clinical History: 69-year-old male Tube placement Findings: ET tube and NG tubes satisfactory. While there is leftward patient rotation, there appears to be persisting volume loss in the left hillary thorax with some shift of the heart toward the left. Given the upward looping of the NG tube, suspect elevation of left hemidiaphragm is well. Persistent opacity throughout the left mid and lower lung a s well as left-sided interstitial density. Impression: Relatively stable exam allowing for patient rotation. Suspect significant volume loss, possible areas of collapse and/or consolidation left mid and lower lung.
[2019-11-25] MEDS: PANTOPRAZOLE 40 MG/10 ML VIAL IVP SCH (08:15)
[2019-11-25] MEDS: CHLORHEXIDINE GLUCONATE 15 ML CUP MUCOUS MEM SCH ×2 (08:44→20:08)
[2019-11-25] MEDS: ASPIRIN 81 MG PO SCH (08:45)
[2019-11-25] MEDS: ZINC SULFATE 220 MG CAP PO SCH (08:45)
[2019-11-25] MEDS: METOPROLOL TARTRATE 25 MG TAB PO SCH ×2 (08:45→20:08)
[2019-11-25] MEDS: DILTIAZEM ORAL 60 MG TAB OG-TUBE SCH ×2 (08:45→20:08)
[2019-11-25] MEDS: DIGOXIN 250 MCG TAB PO SCH (08:45)
[2019-11-25 11:21] LABS: Glucose,Whole Blood 190 mg/dL (75-99)
[2019-11-25] MEDS: LACTATED RINGERS 1,000 ML IV SCH (11:23)
--- NOTE | 2019-11-25 11:34 | P.PN ---
Progress Note - Text Progress Note Date: 11/25/19 Patient remains on the ventilator. His condition is stable. We are tentatively planning for tracheostomy and PEG tube placement in the a.m.
--- NOTE | 2019-11-25 13:49 | P.PN ---
Subjective Progress Note Date: 11/25/19 On 11/23/2019 and seeing the patient for a follow-up regarding respiratory failure. As mentioned earlier, the patient is a case of severe COPD with an FEV1 of 28% of predicted. The patient has a positive infection with COVID 19 . The patient had a left lower lobe atelectasis and the patient underwent a bronchoscopy last week and removal of mucous plugs. Cultures from the bronchoscopy came back all negative. The patient is also diabetic and has an abdominal aortic aneurysm in addition to that he has chronic atrial fibrillation, oriented disease and obstructive sleep apnea. This morning, the patient is assist-control mode of ventilation at the rate of 20 with a tidal volume of 450 and FiO2 of 50% with a PEEP of 10. The patient was sedated this morning with a propofol at the rate of 35 mcg/kg per minute. The patient is receiving vital HP at the rate of 41 mL an hour. The patient apparently was given a sedation holiday yesterday and following that he was given a spelled his breathing trial which he failed and he was placed back on sedation. He is getting another sedation holiday today. Based on today's evaluation, chest x- ray findings are essentially stable. There is some volume loss and atelectasis of the left lower lobe. The blood gas showed a pH of 7.4 3 with a pCO2 of 55 and pO2 of 83. Based on this, I dropped the PEEP down to 5 and I also doubt the FiO2 down to 40%. Subsequent blood gases showed a pH of 7.47 with a pCO2 of 52 and pO2 of 62. The patient's echoes at 12.5. The patient is afebrile for now. The patient is hemodynamically stable. The patient is not requiring any pressors for now. Note that he has a preserved limits. Ejection fraction of 55 %. The patient has been a positive fluid balance of at least 8-9 L over the past 24 hours. He has completed his course of Actonel. He is on IV Solu-Medrol 40 mg every 6 hours. He is still on zinc sulfate 220 mg once a day. He remains in atrial fibrillation. He is slightly bradycardic earlier today and I made recommendations to hold off on Cardizem accordingly. He is on long-term anticoagulation with Eliquis. On today's evaluation of 11/24/2019 and seeing the patient for a follow-up. Thi s is a patient with advanced COPD with an FEV1 of 28% of predicted and the patient has a left lower lobe pneumonia/atelectasis. Furthermore the patient was confirmed to be a Covid 19 positive pneumonia. Note that the patient had improved somewhat in his oxygenation. I was able to cut down his PEEP down to 5 and off FiO2 down to 40% on yesterday's sounds. Overnight the patient became hypoxic. The PEEP had to be increased up to 10 and FiO2 was brought up to 70%. Earlier this morning, the patient self extubated. The patient had to be reintubated by [employer]. For now, the patient is back on a mechanical ventilator and the patient is currently sedated with propofol at the rate of 35 g per KG per minute. He remains in atrial fibrillation with a heart rate between 110 and 130. He is on assist control mode at the rate of 20 with a tidal volume of 450 and FiO2 of 75% with a PEEP of 10. Peak airway pressures around 31 with a setting of a pressure of 21. The patient is afebrile. The patient is hemodynamically stable. This is going to be a difficult wean. I suggested the possibility of doing a tracheostomy tube insertion and a PEG tube insertion. The patient has been confirmed to be a Covid 19 case back in 11/09/2019. This will be repeated today. Note that the test was repeated on 11/18/2019. If there is also negative, would say will be rather sensitive to proceed with a PEG and tracheostomy tube insertion. For that reason general surgical consultation was obtained. The patient's blood gases post intubation showed a pH of 7.43 with a pCO2 of 57 and pO2 of 69. Chest x-ray shows some volume loss and atelectasis in the left lung base. ET tube is in a good location for now. He is tolerating enteral feeding for enteral support. His digoxin level was within normal limits.he has completed his course of Plaquenil. He is still on zinc sulfate. He remains on IV Solu-Medrol 40 mg every 6 hours in addition to Symbicort and albuterol HFA 4 times a day [id number]. He was taken off Eliquis in preparation for possible PEG and trach. On 11/25/2019, the patient is being seen in follow-up today in the intensive care unit. Remains on mechanical ventilator. The patient is sedated. The patient remained on assist control mode of ventilator with an FiO2 of 75% and PEEP of 10 with a tidal volume of 450 and at 8 of 12. He had a chest x-ray this morning that showed still persistent volume loss and left lung base along with left lower lobe atelectasis. The blood gas showed a pH of 7.47 with a pCO2 of 52 and pO2 of 103. Based on this, I dropped the FiO2 down to 50%. He remains on a PEEP of 10. White cell count at 15.1. He is tolerating his tube feeds. Hemodynamically stable. He is afebrile. I had a lengthy discussion with the patient's on the phone. I was was going to talk about the possibility of undergoing a tracheostomy tube insertion and a PEG tube insertion on him as part of long-term meaning off the mechanical ventilator. Nevertheless, the did not consent to that. She told me that the patient would never have wanted to be intubated or placed on a mechanical ventilator for long period of time. She understands that his lung starting with have been quite severely impaired with an FEV1 of 28% of predicted consistent with severe COPD. As such, we are not going to proceed with the procedures as stated tomorrow. Based on my conversation with the , she wanted to give another trial of extubation if possible with the next 24-48 hours and consider comfort care measures and the patient failed extubation. I think this will be a reasonable approach for this patient. Otherwise, no other significant events overnight. The patient is producing adequate amount of urine output. Renal function stable. The patient remains on Symbicort 2 puffs twice a day in addition to Ventolin 2 puffs 4 times a day [id number], IV Solu Medrol, and he is on oral Cardizem 60 mg by mouth twice a day with adequate control of his underlying atrial fibrillation. He is on no anticoagulants for now. Objective - Vital Signs Vital signs: Vital Signs Temp 97.7 F 11/25/19 12:00 Pulse 74 11/25/19 13:00 Resp 20 11/25/19 13:00 BP 135/75 11/25/19 12:00 Pulse Ox 95 11/25/19 13:00 Intake & Output 11/24/19 11/25/19 11/25/19 18:59 06:59 18:59 Intake Total 8046.297 5976.967 386.888 Output Total 850 770 350 Balance 158.155 239.967 36.888 Weight 114.4 kg 117 kg 117 kg Intake: IV 192 192 112 Lactated Ringers 1,000 ml 120 120 70 @ 10 mls/hr IV .Q24H [facility] Rx#:[id number] Normal Saline Pressure 72 72 42 Bag Intake, IV Titration 275.155 205.967 30.888 Amount Propofol 1,000 mg In 275.155 205.967 30.888 Empty Bag 1 bag @ Titrate IV .Q0M [facility] Rx#: [id number] Oral 60 Tube Feeding 451 492 124 Other 90 120 60 Output: Urine 850 770 350 Other: Voiding Method Indwelling Catheter Indwelling Catheter Indwelling Catheter ABP, PAP, CO, CI - Last Documented Arterial Blood Pressure 140/69 - Exam Gen. appearance, comfortable nonacute distress intubated on a mechanical ventilator. Orogastric and orotracheal tube are both in place. Head exam was generally normal. There was no scleral icterus or corneal arcus. Mucous membranes were moist. Neck was supple and without jugular venous distension, thyromegaly, or carotid bruits. Carotids were easily palpable bilaterally. There was no adenopathy. Lungs sounds are diminished bilaterally along with some scattered expiratory wheezes throughout the lung rasheed. Cardiac exam revealed the PMI to be normally situated and sized. The rhythm was regular and no extrasystoles were noted during several minutes of auscultation. The first and second heart sounds were normal and physiologic splitting of the second heart sound was noted. There were no murmurs, rubs, clicks, or gallops Abdominal exam revealed normal bowel sounds. The abdomen was soft, non-tender, and without masses, organomegaly, or appreciable enlargement of the abdominal aorta. Examination of the extremities revealed easily palpable radial, femoral and pedal pulses. There was no cyanosis, clubbing or edema. There is trace edema lower extremities bilaterally. Examination of the skin revealed no evidence of significant rashes, suspicious appearing nevi or other concerning lesions. Neurologically the patient is awake specially when he gets weaned off the sedation. The sedation holidays to follow today. - Labs CBC & Chem 7: 11/25/19 05:08 11/25/19 05:08 Labs: Abnormal Lab Results - Last 24 Hours (Table) 11/24/19 11/24/19 11/25/19 Range/Units 17:21 23:52 05:00 WBC (3.8-10.6) k/uL Neutrophils # (1.3-7.7) k/uL Lymphocytes # (1.0-4.8) k/uL ABG pH 7.47 H (7.35-7.45) ABG pCO2 52 H (35-45) mmHg ABG HCO3 38 H (21-25) mmol/L ABG Total CO2 40 H (19-24) mmol/L ABG O2 Saturation 98.4 H (94-97) % Carbon Dioxide (22-30) mmol/L BUN (9-20) mg/dL Creatinine (0.66-1.25) mg/dL Glucose (74-99) mg/dL POC Glucose (mg/dL) 184 H 150 H (75-99) mg/dL 11/25/19 11/25/19 11/25/19 Range/Units 05:08 05:08 06:36 WBC 15.1 H (3.8-10.6) k/uL Neutrophils # 14.3 H (1.3-7.7) k/uL Lymphocytes # 0.4 L (1.0-4.8) k/uL ABG pH (7.35-7.45) ABG pCO2 (35-45) mmHg ABG HCO3 (21-25) mmol/L ABG Total CO2 (19-24) mmol/L ABG O2 Saturation (94-97) % Carbon Dioxide 38 H (22-30) mmol/L BUN 38 H (9-20) mg/dL Creatinine 0.57 L (0.66-1.25) mg/dL Glucose 167 H (74-99) mg/dL POC Glucose (mg/dL) 168 H (75-99) mg/dL 11/25/19 Range/Units 11:19 WBC (3.8-10.6) k/uL Neutrophils # (1.3-7.7) k/uL Lymphocytes # (1.0-4.8) k/uL ABG pH (7.35-7.45) ABG pCO2 (35-45) mmHg ABG HCO3 (21-25) mmol/L ABG Total CO2 (19-24) mmol/L ABG O2 Saturation (94-97) % Carbon Dioxide (22-30) mmol/L BUN (9-20) mg/dL Creatinine (0.66-1.25) mg/dL Glucose (74-99) mg/dL POC Glucose (mg/dL) 190 H (75-99) mg/dL Assessment and Plan Plan: 1 acute left lower lobe pneumonia with volume loss and mucous plugs postintubation, post bronchoscopy and therapeutic it was suctioning and removal of mucous plugs. Cultures are negative and the patient is positive for COVID 19 coronavirus infection. The patient self extubated himself and failed. He had to be reintubated. The patient was originally diagnosed having Covid 19 on 11/09/2019. Note that the patient went into acute hypoxic respiratory failure and the patient was unable to get off the mechanical ventilator. He had a on successful self extubation. I introduced the possibility of undergoing a tracheostomy tube and the PEG tube insertion for this patient. Nevertheless, the which is the main decision-making person the next of kin did not consent to the procedure. Based on all this, and based on my conversation with the , we are going to give another trial of extubation probably the next 48-72 hours. We'll consider comfort care measures if the patient fails extubation. The chest x-ray from today still showing a persistent left lower lobe atelectasis and volume loss. No much improvement. There is some improvement in the oxygenation with the patient's pulse ox improved while being on 75% FiO2 with a PEEP of 10 and FiO2 will be dropped accordingly. 2 acute coronavirus COVID 19 infection, completed a course of Plaquenil 3 acute hypoxic respiratory failure, currently still intubated on a mechanical ventilator. 4 COPD, severe with an FEV1 of 28% of predicted 5 history of paroxysmal atrial fibrillation currently on a combination of digoxin and Cardizem and Eliquis for long-term anticoagulation. Currently off anticoagulation. 6 positive fluid balance and increased edema lower extremities bilaterally 7 coronary artery disease 8 obstructive sleep apnea. 9 diabetes mellitus 10 abdominal aortic aneurysm Plan Continue vent support Drop the FiO2 down to 50% Keep the PEEP elevated trying to occluded left lower lobe Continue oral Cardizem May restart Eliquis Continue IV Solu-Medrol Continue Symbicort HFA Continue Ventolin HFA Enteral feeding for this. Support Levemir insulin 20 units twice a day along with a NovoLog 12 units subcu every 6 hours No plans for a PEG and trach per family's wishes May consider another trial of extubation later stage sometime this week. This will largely depend on his condition. The family is considering comfort care measures if he failed extubation. I have elected discussion with his over the phone and she understands the situation. We'll continue to follow. Condition is critical and the valuation was on a more than 30 minutes. Time with Patient: Greater than 30
--- NOTE | 2019-11-25 13:54 | P.PN ---
Subjective Progress Note Date: 11/25/19 This is a 69-year-old male patient of Dr. Holland and Dr. Berumen with a previous medical history significant for paroxysmal atrial fibrillation, hypertension and hypertensive cardiovascular disease, hyperlipidemia, obesity with obstructive sleep apnea, CAD with ST elevation CA post-PCI of the RCA back in August 2016, advanced COPD with FEV1 of 20% of predicted, chronic hypoxic respiratory failure, diabetes mellitus type 2, remote history of tobacco use. Patient has had previous admissions for acute COPD exacerbation as well as atrial flutter or atrial fibrillation with RVR. Patient most recently was hospitalized at [facility] at which time he was treated for atrial fibrillation with RVR, and pneumonia with lactic acidosis. Patient was treated with Rocephin and azithromycin. Patient was discharged home on -. Patient was instructed to hold eliquis as he was scheduled for heart catheterization on Saturday. Patient went to his liquor clerk in [place] and was to be scheduled for heart catheterization today. He then developed fever of 104 at home as well as shortness of breath and productive cough. Patient came into [facility] emergency center for evaluation. Temperature 102.3, heart rate 101 and jumped up to 177, blood pressure 125/70, pulse ox 99%.. He was found to be in A. fib with RVR, influenza and RSV negative. patient was tested for COVID19 which is pending. CBC, CMP unremarkable. Lactic acid 1.9, troponin 0.012, proBNP 1680. Chest x-ray reveals patchy atelectasis at the lung bases is new and increased compared to old exam. No heart failure seen. Repeat Chest x-ray reveals worsening left basilar airspace disease. Primary diagnostic consideration is for unifocal pneumonia. Patient has been admitted to the intensive care unit and consult in place with pulmonary medicine and cardiology consult will be added. 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 Cardizem drip will be discontinued and home oral medications resumed. 11/10: Patient is seen in the intensive care unit. He is in isolation for possible Covid 19 infection. Case was reviewed with the nurse outside the patient's room. No hands-on physical exam was performed. Patient is currently on O2 at 6 L nasal cannula with pulse ox of 95%, recommended that patient be weaned down on oxygen level. Temperature max today is 100.3. Heart rate in the 90s and low 100s. Blood pressure 119/76. Repeat blood work reveals a platelet count 108, WBC 7.1, hemoglobin 14.8. Sodium 132, potassium 4.6, chloride 102, CO2 24, BUN 10 and creatinine 0.57. Blood culture 2 no growth at 24 hours. COVID-19 testing remains pending. 11/11: Patient remains in the intensive care unit and has now been downgraded to [facility] with telemetry. Patient's less lethargic today. He is oriented 3. He received Lasix yesterday IV and diuresed well. He has had good urine output. CBC shows normal white count and hemoglobin, platelet count 139. Sodium 133, potassium 4.7, chloride 100, CO2 28, BUN 16 and creatinine 0.56. Pro-calcitonin 0.09. Blood culture no growth at 48 hours 2 specimens. Sputum culture is in progress. Repeat chest x-ray reveals small left pleural effusion and left basilar airspace disease as well as stable right infrahilar airspace disease and may represent atelectasis or developing pneumonia. Incentive spirometry and ABGs ordered. Solu-Medrol 60mg will be decreased to every 8 hours. 11/12: Patient is still having shortness of breath currently at 5 L nasal cannula. We will add Lasix 40 mg IV twice daily. Vancomycin can be discontinued at this point. COVID-19 remains pending. Patient remains in isolation. Patient has been afebrile, heart rate 90s, blood pressure 112/70, pulse ox 95% on 5 L nasal cannula. Repeat lab work reveals platelet count 135. Sodium 133, potassium 4.1, BUN 24 and creatinine 0.64. Blood sugars running in the 200s. Serum culture reveals normal fe. Blood culture no growth 2 specimens. 11/13: Patient is having less symptom with shortness of breath no chest pain at this point. Patient is responding well to current IV antibiotic with much lower temperature. Blood sugar was running high last night his Levemir was increased to 20 units twice a day and Humalog up to 5 units before meals meals plus sliding scale a. Patient COVID-19 remain pending at this point patient remain on isolation. Otherwise feeling well, still seen pulmonary with FEV1 of 20% only with a current hypoxia patient is doing much better with less oxygen concentration. Also patient original plan for elective heart catheter on Saturday with his liquor clerk at [facility] is delay ~febrile illness and infection is completely clear probably will be rescheduled for at least 2-4 weeks from his discharge date. 11/14: Patient is doing well today continued to be more tired and fatigued his hypoxia has been much better his testing still negative for this point, his bloo d sugar still mildly elevated and titrate his insulin today to keep his random blood sugar below 150. Patient is not having any chest pain or shortness of breath is bilateral pneumonia as well treated and managed currently we'll continue to wean him down on oxygen continue diuretics and switch to oral patient expected discharge probably in 48 hours. 11/15: The patient remains in intensive care unit but is a MedSurg overflow. COVID-19 is positive. Solu-Medrol will be discontinued. Blood sugars have been quite high but expect this to improve now that he is off Solu-Medrol. Patient is currently on antibiotics in the form of cefepime and Levaquin. Ultrasound of the chest revealed minimal left-sided effusion. Patient has been afebrile, heart rate 72, blood pressure 126/72, pulse ox 90% on 5 L nasal cannula. 11/16: Patient remains in the intensive care unit but is MedSurg overflow, Covid 19 positive. Patient has been started on a Zithromax then and Plaquenil by Dr. Ordonez. Patient has been hemodynamically stable with blood pressure 131/76, heart rate 72, afebrile. Pulse ox is running 90 on 5 L nasal cannula. Repeat blood work reveals white count of 11.7, CO2 38, BUN 28 creatinine 0.66. Blood sugars are running between 189 and 209. Blood sugars are improved after IV steroids discontinued. Repeat chest x-ray shows persistent left mid to lower lung edema and/or infiltrate silhouetting left heart border and hemidiaphragm. Worsening left upper lung interstitial edema and/or infiltrates noted. Stable left-sided volume loss. Patient denies having any cough at this time, no sputum production. Patient denies having chest pain. Discharge planning is in progress. Patient at this time is unable to go to subacute rehab due to restrictions regarding Covid testing. manager laboratory has been in contact with family members and home care including PT have been arranged. Wheelchair will be ordered and arranged by case management rn. Patient may also benefit from walker which family will obtain. We are anticipating discharge in 24-48 hours. Patient has had good urine output and Mont[place]or catheter will be removed later. 11/17: Patient developed increasing shortness of breath during the evening and oxygen was increased to 15 L high flow nasal cannula. Patient was given a dose of Lasix 40 mg IV push and was weaned down to 8 L nasal cannula. Pulse ox then was running 85% and he is currently up to 10 L nasal cannula. Patient is found sitting up in a chair and appears to be in no acute respiratory distress. Patient has been very reluctant to move. Patient has incentive spirometry and is only reaching 75 ML's. WBC 12.2. Sodium 135, potassium 5.5, chloride 91, CO2 38, P1 20 and creatinine 0.57. Blood sugars run between 106 and 133. Troponin from last night was negative, proBNP 1150. Repeat potassium 3.6. 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 fib controlled rate. Patient is afebrile, heart rate 92, blood pressure 101/70. Patient's has been updated via the phone by Dr. Derek apple. Patient is extremely weak and we will repeat Covid 19 testing in anticipation of need for subacute rehab. Patient's states that she is unable to manage him at home. 11/18: Patient have further decline this morning of his respiratory status with increasing fatigue and is being intubated by Dr. Barry this morning. Chest x- ray reveals worsening opacities occasional left lower lobe and lingula. Worsening infiltrate in the left upper lobe was present. There may be some shift of the mediastinum towards the left. Correlate for atelectasis. Moderate pleural effusion appears stable. Repeat blood work reveals WBC 16.5, sodium 136, potassium 3.6, chloride 90, CO2 40, BUN 13 creatinine 0.72. Repeat troponin negative. ProBNP 732. Patient had a low blood sugar which required treatment this morning of 57. Scheduled Levemir and NovoLog will be discontinued. stripper and printer is atrial fibrillation with controlled rate. Patient's was contacted via phone and updated regarding patient's current condition, need for intubation and guarded prognosis. 11/19: Patient remains in the intensive care unit intubated and on mechanical ventilation. Patient has been afebrile, heart rate 85, blood pressure 129/59. Patient has not required vasopressor support. WBC 9.5, hemoglobin 11.1, platelet count 137. Sodium 135, potassium 4.4, chloride 94, BUN 39 creatinine 0.75. Blood sugars are running in the 200s. All scheduled insulin was discontinued due to hypoglycemia yesterday. Patient is now on LR and Solu- Medrol, Levemir 10 units added back in. Patient is also on insulin scale. Yesterday, besides being intubated, patient underwent bronchoscopy with airway examination, therapeutic lavage, BAL of the left lung. There was noted mild bronchitis and on the left side a huge mucous plug completely obstructing the proximal left main stem was removed. Repeat chest x-ray this morning reveals endotracheal tube slightly high riding could be advanced. Slightly improved small left pleural effusion and left basilar airspace disease. Pneumonia versus atelectasis. Patient remains on azithromycin, Plaquenil and a zinc. Patient is also followed by infectious disease. Cardiology has signed off. Patient's case was discussed with his nurse. No physical exam done in order to limit exposure to COVID-19 patient while intubated. 11/20: Patient remains in intensive care unit currently intubated on mechanical ventilation he was seen earlier by pulmonary medicine and he was dropped down to 50% and FiO2 he is trying to follow commands by weaning down the sedation however he continues to have significant distress he is in droplet precaution due to COVID-19 status, discussed his plan of care with the nursing staff his blood glucose levels were elevated and he was started on Levemir earlier that was increased to 15 units twice a day along with the Humalog plus sliding scale. 11/21: Patient remains in intensive care unit currently intubated on mechanical ventilation he continues to be followed by pulmonary medicine, trying to wean the sedation off, continues to be in significant distress with droplet precautions due to his Covid 19 status, we will continue to monitor the follow the patient peripherally. 11/22: Patient remains in intensive care unit intubated and on mechanical ventilation. On settings are currently following him 450, FiO2 40, PEEP of 5 which is improved from earlier this morning. A weaning attempt was tried yesterday which failed and also again today which failed. He remains in droplet precautions secondary to COVID-19. Due to this, patient will be monitored peripherally only. Blood sugars have remained high and we will increase Levemir to 20 units twice daily, increase NovoLog to 12 units every 6 hours and continue NovoLog scale. 11/23: Patient remains in intensive care unit, intubated and on mechanical ventilation. Patient self extubated and required reintubation today. Patient is on sedation as able to respond to the nurse. Blood sugars are slowly improving. We'll make no changes to his insulins today. He is having good u rine output. General surgery has been consulted for possible PEG tube and trach insertion. Patient will be retested for Covid 19 and remains and droplet precautions. 11/24: The patient remains intubated and on mechanical ventilation management by Dr. Berumen. Patient is in droplet isolation for Covid 19. Social work will be contacting family regarding possible transfer to. Debate is in place for regarding whether patient should have PEG tube and trach done prior to transfer. Patient is afebrile, heart rate 75, blood pressure 143/73. WBC 15.1, BUN 30 and creatinine 0.57. CO2 is 38. Blood sugars are improved running between 150 and 190. Objective - Vital Signs Vital signs: Vital Signs Temp 97.7 F 11/25/19 12:00 Pulse 74 11/25/19 13:00 Resp 20 11/25/19 13:00 BP 135/75 11/25/19 12:00 Pulse Ox 95 11/25/19 13:00 Intake & Output 11/24/19 11/25/19 11/25/19 18:59 06:59 18:59 Intake Total 3682.157 4162.967 386.888 Output Total 850 770 350 Balance 158.155 239.967 36.888 Weight 114.4 kg 117 kg 117 kg Intake: IV 192 192 112 Lactated Ringers 1,000 ml 120 120 70 @ 10 mls/hr IV .Q24H JOE Rx#:[id number] Normal Saline Pressure 72 72 42 Bag Intake, IV Titration 275.155 205.967 30.888 Amount Propofol 1,000 mg In 275.155 205.967 30.888 Empty Bag 1 bag @ Titrate IV .Q0M JOE Rx#: [id number] Oral 60 Tube Feeding 451 492 124 Other 90 120 60 Output: Urine 850 770 350 Other: Voiding Method Indwelling Catheter Indwelling Catheter Indwelling Catheter ABP, PAP, CO, CI - Last Documented Arterial Blood Pressure 140/69 - Exam Review of Systems unable to be obtained due to sedation and intubation Physical examination- Gen: This is a 69-year-old man. Patient and ICU bed with no respiratory distress. HEENT: Head is atraumatic, normocephalic. Oral ET and gastric tube in place. Physical exam deferred due to COVID-19 isolation and deferred to Dr. Berumen. - Labs CBC & Chem 7: 11/25/19 05:08 11/25/19 05:08 Labs: Abnormal Lab Results - Last 24 Hours (Table) 11/24/19 11/24/19 11/25/19 Range/Units 17:21 23:52 05:00 WBC (3.8-10.6) k/uL Neutrophils # (1.3-7.7) k/uL Lymphocytes # (1.0-4.8) k/uL ABG pH 7.47 H (7.35-7.45) ABG pCO2 52 H (35-45) mmHg ABG HCO3 38 H (21-25) mmol/L ABG Total CO2 40 H (19-24) mmol/L ABG O2 Saturation 98.4 H (94-97) % Carbon Dioxide (22-30) mmol/L BUN (9-20) mg/dL Creatinine (0.66-1.25) mg/dL Glucose (74-99) mg/dL POC Glucose (mg/dL) 184 H 150 H (75-99) mg/dL 11/25/19 11/25/19 11/25/19 Range/Units 05:08 05:08 06:36 WBC 15.1 H (3.8-10.6) k/uL Neutrophils # 14.3 H (1.3-7.7) k/uL Lymphocytes # 0.4 L (1.0-4.8) k/uL ABG pH (7.35-7.45) ABG pCO2 (35-45) mmHg ABG HCO3 (21-25) mmol/L ABG Total CO2 (19-24) mmol/L ABG O2 Saturation (94-97) % Carbon Dioxide 38 H (22-30) mmol/L BUN 38 H (9-20) mg/dL Creatinine 0.57 L (0.66-1.25) mg/dL Glucose 167 H (74-99) mg/dL POC Glucose (mg/dL) 168 H (75-99) mg/dL 11/25/19 Range/Units 11:19 WBC (3.8-10.6) k/uL Neutrophils # (1.3-7.7) k/uL Lymphocytes # (1.0-4.8) k/uL ABG pH (7.35-7.45) ABG pCO2 (35-45) mmHg ABG HCO3 (21-25) mmol/L ABG Total CO2 (19-24) mmol/L ABG O2 Saturation (94-97) % Carbon Dioxide (22-30) mmol/L BUN (9-20) mg/dL Creatinine (0.66-1.25) mg/dL Glucose (74-99) mg/dL POC Glucose (mg/dL) 190 H (75-99) mg/dL Assessment and Plan Plan: 1. Acute febrile illness most likely secondary to bibasilar pneumonia, gram- negative pneumonia and COVID-19. Atrovent nebulizer treatment every 6 hours as needed, Symbicort twice daily, Solu-Medrol 40 mg IV every 6 hours. Consults with pulmonary medicine and Dr. Ordonez appreciated. Patient has completed course of Plaquenil, azithromycin and zinc. 2. Acute on chronic hypoxic respiratory failure secondary to Covid 19. Vent management per pulmonary medicine/critical care. Weaning attempts daily. 3. A. fib with RVR, chronic atrial fibrillation. Heart rate is currently controlled. Patient continued on eliquis 5 mg twice daily, digoxin 250 g daily, Cardizem oral 90 mg 3 times daily, Lopressor 25 mg twice daily. Cardiology consult appreciated. Cardiology is following on an as-needed basis only. 4. Advanced COPD. Continue Atrovent, Pulmicort twice daily, consult with pulmonary medicine 5. Obstructive sleep apnea. 6. Known coronary artery disease post angioplasty and stent placement. Patient was scheduled to undergo catheterization at [facility]. 7. Hypertension hypertensive cardiovascular disease. 8. Abdominal aortic aneurysm monitored by vascular surgery. 9. GI prophylaxis. Protonix. 10. DVT prophylaxis. Eliquis. 11. Hyperglycemia secondary to steroids. Increase Levemir to 20 units twice daily, increase NovoLog to 12 units every 6 hours and continue NovoLog scale. 12. Severe protein calorie malnutrition secondary to intubation. Continue tube feeds, at goal. Consult with Dr. Cline for PEG tube and trach. Prognosis guarded. CODE STATUS: Full code Discharge plan: To be determined. Patient may end up being transferred to [facility] and plan of care have been directed as dictated by the signing physi cian. Joy Baxter nurse practitioner acting as scribe for signing physician.
[2019-11-25] MEDS: APIXABAN 5 MG TAB PO SCH ×2 (14:04→20:09)
--- NOTE | 2019-11-25 15:49 | PN ---
PROGRESS NOTE DATE OF SERVICE: 11/25/2019 REASON FOR FOLLOWUP: Acute COVID-19 pneumonia. INTERVAL HISTORY: The patient is currently afebrile, patient is hemodynamically stable, not requiring any pressor support. FiO2 is currently down to 50%. Has been tolerating his tube feeds. No diarrhea has been reported. PHYSICAL EXAMINATION: Blood pressure 136/76, pulse of 87, temperature 97.7. He is 93% on 50% FiO2. General description is an elderly male, lying in bed in no distress. RESPIRATORY SYSTEM: Unlabored breathing, decreased intense breath sounds. No wheeze. HEART: S1, S2. Regular rate and rhythm. ABDOMEN: Soft, no tenderness. LABS: Hemoglobin is 14.4, white count of 15.1. BUN of 13, creatinine 0.57. DIAGNOSTIC IMPRESSION AND PLAN: Patient with acute respiratory failure which is likely multifactorial with a component of pneumonia. He has been confirmed for the COVID-19 and has received treatment for the same, with persistent is vent-dependent respiratory failure in this patient did have previous mucous plugging, and may be the same issue with worse areas of collapse. RECOMMENDATION: Left midlung benefit from repeat bronchoscopy. The patient is currently supported treatment and monitor clinical course closely. MMODL / IJN: [id number] /
[2019-11-25 16:38] LABS: Glucose,Whole Blood 203 mg/dL (75-99)
[2019-11-25 23:58] LABS: Glucose,Whole Blood 179 mg/dL (75-99)
[2019-11-26] MEDS: INSULIN ASPART (NovoLOG) 100 UNIT/ML VIAL SQ SCH ×7 (00:08→17:14)
[2019-11-26 05:02] LABS: Basophils % (A) 0 %; Eosinophils % (A) 0 %; HCT 46.1 % (39.0-53.0); HGB 14.6 gm/dL (13.0-17.5); Lymphocytes # (A) 0.2 k/uL (1.0-4.8); Lymphocytes % (A) 1 %; MCH 31.2 pg (25.0-35.0); MCHC 31.7 g/dL (31.0-37.0); MCV 98.6 fL (80.0-100.0); Mean Platelet Volume 8.5; Monocytes # (A) 0.6 k/uL (0-1.0); Monocytes % (A) 3 %; Neutrophils # (A) 18.1 k/uL (1.3-7.7); Neutrophils % (A) 95 %; Platelet Count 168 k/uL (150-450); RBC 4.67 m/uL (4.30-5.90); RDW 12.7 % (11.5-15.5)
[2019-11-26 05:39] LABS: ABG Base Excess 15.7 mmol/L; ABG HCO3 39 mmol/L (21-25); ABG PCO2 53 mmHg (35-45); ABG PH 7.48 (7.35-7.45); ABG PO2 81 mmHg (83-108); ABG TCO2 41 mmol/L (19-24)
[2019-11-26 05:42] LABS: Allen Test Performed? no
[2019-11-26] MEDS: methylPREDNISolone SOD SUCCI 40 MG/ML 1 ML VIAL IV SCH ×3 (05:50→17:13)
[2019-11-26] MEDS: PROPOFOL 1,000 MG in EMPTY BAG 1 BAG IV SCH ×3 (05:50→21:00)
[2019-11-26 05:57] LABS: African American GFR (CKD) >90 (>60 ml/min/1.73 sqM); Anion Gap 3 mmol/L; Blood Urea Nitrogen 40 mg/dL (9-20); Calcium 9.4 mg/dL (8.4-10.2); Carbon Dioxide 36 mmol/L (22-30); Chloride 101 mmol/L (98-107); Glucose 196 mg/dL (74-99); Non-African American GFR(CKD) >90 (>60 ml/min/1.73 sqM); Potassium 4.6 mmol/L (3.5-5.1); Sodium 140 mmol/L (137-145); Triglycerides 99 mg/dL (<150)
[2019-11-26] MEDS: INSULIN DETEMIR (LEVEMIR) 100 UNIT/ML SYR SQ SCH ×2 (06:28→21:39)
[2019-11-26 06:29] LABS: Glucose,Whole Blood 185 mg/dL (75-99)
--- NOTE | 2019-11-26 07:50 | XR ---
EXAMINATION TYPE: XR chest 1V portable DATE OF EXAM: 11/26/2019 Comparison: 11/25/2019 Clinical History: 69-year-old male intubated Findings: Some improving volume loss within the left hemithorax. Persistent opacity throughout the left mid and lower lung, dense within the retrocardiac and left basilar region. Suspect underlying [id number] ate effusion. ET tube is satisfactory. Distal aspect of the NG tube is cut off from the [id number]. Left CVC tip in the upper right atrium. Impression: 1. Some improvement in volume loss in the left hemithorax and some improvement in aeration at the mid lung. 2. However, residual extensive opacity remains at the left mid and lower lung, likely combination of small to moderate pleural effusion, areas of collapsed lung and/or consolidation.
[2019-11-26] MEDS: METOPROLOL TARTRATE 25 MG TAB PO SCH ×2 (08:11→21:39)
[2019-11-26] MEDS: DILTIAZEM ORAL 60 MG TAB OG-TUBE SCH ×2 (08:11→22:23)
[2019-11-26] MEDS: APIXABAN 5 MG TAB PO SCH ×2 (08:11→21:39)
[2019-11-26] MEDS: DIGOXIN 250 MCG TAB PO SCH (08:11)
[2019-11-26] MEDS: ZINC SULFATE 220 MG CAP PO SCH (08:11)
[2019-11-26] MEDS: ASPIRIN 81 MG PO SCH (08:11)
[2019-11-26] MEDS: PANTOPRAZOLE 40 MG/10 ML VIAL IVP SCH (08:11)
[2019-11-26] MEDS: CHLORHEXIDINE GLUCONATE 15 ML CUP MUCOUS MEM SCH ×2 (08:11→21:39)
[2019-11-26] MEDS: ALBUTEROL INHALER 60 PUFF/8 GM INHALER (MHU) INHALATION SCH ×4 (08:15→19:24)
[2019-11-26] MEDS: SYMBICORT 160-4.5 MCG INHALER INHALATION SCH ×2 (08:15→19:23)
[2019-11-26] MEDS ORDERED: FUROSEMIDE 10 MG/ML 4 ML VIAL IV STA (08:52)
[2019-11-26 11:30] LABS: Glucose,Whole Blood 198 mg/dL (75-99)
[2019-11-26] MEDS: LACTATED RINGERS 1,000 ML IV SCH (12:19)
--- NOTE | 2019-11-26 15:21 | P.PN ---
Subjective Progress Note Date: 11/26/19 On 11/23/2019 and seeing the patient for a follow-up regarding respiratory failure. As mentioned earlier, the patient is a case of severe COPD with an FEV1 of 28% of predicted. The patient has a positive infection with COVID 19 . The patient had a left lower lobe atelectasis and the patient underwent a bronchoscopy last week and removal of mucous plugs. Cultures from the bronchoscopy came back all negative. The patient is also diabetic and has an abdominal aortic aneurysm in addition to that he has chronic atrial fibrillation, oriented disease and obstructive sleep apnea. This morning, the patient is assist-control mode of ventilation at the rate of 20 with a tidal volume of 450 and FiO2 of 50% with a PEEP of 10. The patient was sedated this morning with a propofol at the rate of 35 mcg/kg per minute. The patient is receiving vital HP at the rate of 41 mL an hour. The patient apparently was given a sedation holiday yesterday and following that he was given a spelled his breathing trial which he failed and he was placed back on sedation. He is getting another sedation holiday today. Based on today's evaluation, chest x- ray findings are essentially stable. There is some volume loss and atelectasis of the left lower lobe. The blood gas showed a pH of 7.4 3 with a pCO2 of 55 and pO2 of 83. Based on this, I dropped the PEEP down to 5 and I also doubt the FiO2 down to 40%. Subsequent blood gases showed a pH of 7.47 with a pCO2 of 52 and pO2 of 62. The patient's echoes at 12.5. The patient is afebrile for now. The patient is hemodynamically stable. The patient is not requiring any pressors for now. Note that he has a preserved limits. Ejection fraction of 55 %. The patient has been a positive fluid balance of at least 8-9 L over the past 24 hours. He has completed his course of Actonel. He is on IV Solu-Medrol 40 mg every 6 hours. He is still on zinc sulfate 220 mg once a day. He remains in atrial fibrillation. He is slightly bradycardic earlier today and I made recommendations to hold off on Cardizem accordingly. He is on long-term anticoagulation with Eliquis. On today's evaluation of 11/24/2019 and seeing the patient for a follow-up. Thi s is a patient with advanced COPD with an FEV1 of 28% of predicted and the patient has a left lower lobe pneumonia/atelectasis. Furthermore the patient was confirmed to be a Covid 19 positive pneumonia. Note that the patient had improved somewhat in his oxygenation. I was able to cut down his PEEP down to 5 and off FiO2 down to 40% on yesterday's sounds. Overnight the patient became hypoxic. The PEEP had to be increased up to 10 and FiO2 was brought up to 70%. Earlier this morning, the patient self extubated. The patient had to be reintubated by [employer]. For now, the patient is back on a mechanical ventilator and the patient is currently sedated with propofol at the rate of 35 g per KG per minute. He remains in atrial fibrillation with a heart rate between 110 and 130. He is on assist control mode at the rate of 20 with a tidal volume of 450 and FiO2 of 75% with a PEEP of 10. Peak airway pressures around 31 with a setting of a pressure of 21. The patient is afebrile. The patient is hemodynamically stable. This is going to be a difficult wean. I suggested the possibility of doing a tracheostomy tube insertion and a PEG tube insertion. The patient has been confirmed to be a Covid 19 case back in 11/09/2019. This will be repeated today. Note that the test was repeated on 11/18/2019. If there is also negative, would say will be rather sensitive to proceed with a PEG and tracheostomy tube insertion. For that reason general surgical consultation was obtained. The patient's blood gases post intubation showed a pH of 7.43 with a pCO2 of 57 and pO2 of 69. Chest x-ray shows some volume loss and atelectasis in the left lung base. ET tube is in a good location for now. He is tolerating enteral feeding for enteral support. His digoxin level was within normal limits.he has completed his course of Plaquenil. He is still on zinc sulfate. He remains on IV Solu-Medrol 40 mg every 6 hours in addition to Symbicort and albuterol HFA 4 times a day [id number]. He was taken off Eliquis in preparation for possible PEG and trach. On 11/25/2019, the patient is being seen in follow-up today in the intensive care unit. Remains on mechanical ventilator. The patient is sedated. The patient remained on assist control mode of ventilator with an FiO2 of 75% and PEEP of 10 with a tidal volume of 450 and at 8 of 12. He had a chest x-ray this morning that showed still persistent volume loss and left lung base along with left lower lobe atelectasis. The blood gas showed a pH of 7.47 with a pCO2 of 52 and pO2 of 103. Based on this, I dropped the FiO2 down to 50%. He remains on a PEEP of 10. White cell count at 15.1. He is tolerating his tube feeds. Hemodynamically stable. He is afebrile. I had a lengthy discussion with the patient's on the phone. I was was going to talk about the possibility of undergoing a tracheostomy tube insertion and a PEG tube insertion on him as part of long-term meaning off the mechanical ventilator. Nevertheless, the did not consent to that. She told me that the patient would never have wanted to be intubated or placed on a mechanical ventilator for long period of time. She understands that his lung starting with have been quite severely impaired with an FEV1 of 28% of predicted consistent with severe COPD. As such, we are not going to proceed with the procedures as stated tomorrow. Based on my conversation with the , she wanted to give another trial of extubation if possible with the next 24-48 hours and consider comfort care measures and the patient failed extubation. I think this will be a reasonable approach for this patient. Otherwise, no other significant events overnight. The patient is producing adequate amount of urine output. Renal function stable. The patient remains on Symbicort 2 puffs twice a day in addition to Ventolin 2 puffs 4 times a day [id number], IV Solu Medrol, and he is on oral Cardizem 60 mg by mouth twice a day with adequate control of his underlying atrial fibrillation. He is on no anticoagulants for now. On 11/26/2019 and seeing the patient for a follow-up. The patient remains intubated on a mechanical ventilator. As mentioned earlier, no plans for a PEG or tracheostomy tube insertion upon the wishes of the . I had a lengthy discussion with her and our decision was to extubate this patient once ready to a nonrebreather facemask with the idea that the patient will not be reintubated if he decompensates. On today's evaluation he is an assist-control mode with a rate of 20 with a PEEP of 10 FiO2 of 50% and a tidal volume of 400. There is improved aeration of the left lung base and there is improvement in the volume status and the left upper lobe area. Distal some atelectasis in the left lung base. The patient is afebrile. The patient remains on IV Rocephin. He remains on plaque with treating Covid 19 infection and the patient remains on IV Solu Medrol 40 mg every 12 hours. No fever. No chills. Tolerating enteral feeding for nutritional support. No significant signs of any fluid overload. Based on all this, I discontinued the propofol and with checked the weaning parameters. The patient the rapid shallow breathing index of 80. I was considering a spontaneous breathing trial and possible extubation today. Nevertheless, I was told by the respiratory therapist and the nursing staff that the patient has significant amount of orotracheal secretions and he may not past the trial and extubation. We decided to postpone this for another 24 hours. Meanwhile, we'll continue the supportive care of this patient and the family informed on the exact timing of the extubation and this will be done with the next 24-48 hours. He is afebrile for now. Is producing adequate amount of urine output. No other significant events. Remains on Lovenox for DVT prophylaxis. The blood gases from this morning showed a pH of 7.48 with a pCO2 of 53 and pO2 of 81 and this was on FiO2 of 50%. Serum triglyceride level is at 99. Objective - Vital Signs Vital signs: Vital Signs Temp 98.4 F 11/26/19 12:00 Pulse 100 11/26/19 14:00 Resp 17 11/26/19 14:00 BP 126/76 11/26/19 05:00 Pulse Ox 93 L 11/26/19 14:00 Intake & Output 11/25/19 11/26/19 11/26/19 18:59 06:59 18:59 Intake Total 842.888 914.198 641.017 Output Total 430 729 3420 Balance 167.888 134.198 -633.983 Weight 117 kg 116.5 kg 116.5 kg Intake: IV 192 192 116 Lactated Ringers 1,000 ml 120 120 80 @ 10 mls/hr IV .Q24H [facility] Rx#:[id number] Normal Saline Pressure 72 72 36 Bag Intake, IV Titration 130.888 181.198 70.017 Amount Propofol 1,000 mg In 130.888 181.198 70.017 Empty Bag 1 bag @ Titrate IV .Q0M [facility] Rx#: [id number] Oral 60 60 Tube Feeding 370 451 335 Other 90 90 60 Output: Urine 086 215 4954 Other: Voiding Method Indwelling Catheter Indwelling Catheter Indwelling Catheter ABP, PAP, CO, CI - Last Documented Arterial Blood Pressure 98/59 - Exam Gen. appearance, comfortable nonacute distress intubated on a mechanical ventilator. Orogastric and orotracheal tube are both in place. Head exam was generally normal. There was no scleral icterus or corneal arcus. Mucous membranes were moist. Neck was supple and without jugular venous distension, thyromegaly, or carotid bruits. Carotids were easily palpable bilaterally. There was no adenopathy. Lungs sounds are diminished bilaterally along with some scattered expiratory wheezes throughout the lung rasheed. Cardiac exam revealed the PMI to be normally situated and sized. The rhythm was regular and no extrasystoles were noted during several minutes of auscultation. The first and second heart sounds were normal and physiologic splitting of the second heart sound was noted. There were no murmurs, rubs, clicks, or gallops Abdominal exam revealed normal bowel sounds. The abdomen was soft, non-tender, and without masses, organomegaly, or appreciable enlargement of the abdominal aorta. Examination of the extremities revealed easily palpable radial, femoral and pedal pulses. There was no cyanosis, clubbing or edema. There is trace edema lower extremities bilaterally. Examination of the skin revealed no evidence of significant rashes, suspicious appearing nevi or other concerning lesions. Neurologically the patient is awake specially when he gets weaned off the sedation. The sedation holidays to follow today. - Labs CBC & Chem 7: 11/26/19 04:20 11/26/19 04:20 Labs: Abnormal Lab Results - Last 24 Hours (Table) 11/24/19 11/25/19 11/25/19 Range/Units 10:15 16:37 23:45 WBC (3.8-10.6) k/uL Neutrophils # (1.3-7.7) k/uL Lymphocytes # (1.0-4.8) k/uL ABG pH (7.35-7.45) ABG pCO2 (35-45) mmHg ABG pO2 (83-108) mmHg ABG HCO3 (21-25) mmol/L ABG Total CO2 (19-24) mmol/L Carbon Dioxide (22-30) mmol/L BUN (9-20) mg/dL Creatinine (0.66-1.25) mg/dL Glucose (74-99) mg/dL POC Glucose (mg/dL) 203 H 179 H (75-99) mg/dL Coronavirus (PCR) DETECTED H (Not detected) 11/26/19 11/26/19 11/26/19 Range/Units 04: 04: 05:30 WBC 19.0 H (3.8-10.6) k/uL Neutrophils # 18.1 H (1.3-7.7) k/uL Lymphocytes # 0.2 L (1.0-4.8) k/uL ABG pH 7.48 H (7.35-7.45) ABG pCO2 53 H (35-45) mmHg ABG pO2 81 L (83-108) mmHg ABG HCO3 39 H (21-25) mmol/L ABG Total CO2 41 H (19-24) mmol/L Carbon Dioxide 36 H (22-30) mmol/L BUN 40 H (9-20) mg/dL Creatinine 0.56 L (0.66-1.25) mg/dL Glucose 196 H (74-99) mg/dL POC Glucose (mg/dL) (75-99) mg/dL Coronavirus (PCR) (Not detected) 11/26/19 11/26/19 Range/Units 06:21 11:29 WBC (3.8-10.6) k/uL Neutrophils # (1.3-7.7) k/uL Lymphocytes # (1.0-4.8) k/uL ABG pH (7.35-7.45) ABG pCO2 (35-45) mmHg ABG pO2 (83-108) mmHg ABG HCO3 (21-25) mmol/L ABG Total CO2 (19-24) mmol/L Carbon Dioxide (22-30) mmol/L BUN (9-20) mg/dL Creatinine (0.66-1.25) mg/dL Glucose (74-99) mg/dL POC Glucose (mg/dL) 185 H 198 H (75-99) mg/dL Coronavirus (PCR) (Not detected) Assessment and Plan Plan: 1 acute left lower lobe pneumonia with volume loss and mucous plugs postintubation, post bronchoscopy and therapeutic it was suctioning and removal of mucous plugs. Cultures are negative and the patient is positive for COVID 19 coronavirus infection. The patient self extubated himself and failed. He had to be reintubated. The patient was originally diagnosed having Covid 19 on 11/09/2019. For now, there are no plans to PEG or trach this patient. After a lengthy discussion with the family, we decided with extubation once ready and consider comfort care measures if he fails extubation later stage. For that reason, I'm going to keep this patient on the mechanical ventilator for another 24 hours. We'll recheck his weaning parameters in the morning. I'm encouraged by the some improvement in the aeration of the left upper lobe on today's x-ray. I did not extubated because of his accessory respiratory secretions. I'm going to consider extubation tomorrow on this patient. For now we'll continue the rest of the supportive care. He is hemodynamic is stable. 2 acute coronavirus COVID 19 infection, completed a course of Plaquenil 3 acute hypoxic respiratory failure, currently still intubated on a mechanical v entilator. 4 COPD, severe with an FEV1 of 28% of predicted 5 history of paroxysmal atrial fibrillation currently on a combination of digoxin and Cardizem and Eliquis for long-term anticoagulation. 6 positive fluid balance and increased edema lower extremities bilaterally, stable 7 coronary artery disease 8 obstructive sleep apnea. 9 diabetes mellitus 10 abdominal aortic aneurysm Plan Continue vent support Continue Plaquenil and zinc sulfate Continue IV Solu-Medrol Continue Symbicort HFA Continue Ventolin HFA Enteral feeding for this. Support Levemir insulin 20 units twice a day along with a NovoLog 12 units subcu every 6 hours No plans for a PEG and trach per family's wishes As mentioned earlier, will do another sedation holiday and check weaning parameters and assess candidacy for extubation weaning. This is to be done over the next 24-48 hours.The family is considering comfort care measures if he failed extubation. The is very much understanding and his condition. She made it very clear to me that Laron with of not 1 long-term mechanical ventilation or intubation. She wanted to try extubation with subsequent DO NOT RESUSCITATE DO NOT INTUBATE CODE STATUS should he failed extubation. We'll continue to follow. Condition is critical and the valuation was on a more than 30 minutes. Time with Patient: Greater than 30
[2019-11-26 17:06] LABS: Glucose,Whole Blood 202 mg/dL (75-99)
--- NOTE | 2019-11-26 23:27 | PN ---
PROGRESS NOTE DATE OF SERVICE: 11/26/2019 REASON FOR FOLLOWUP: Acute COVID-19 pneumonia. INTERVAL HISTORY: The patient is currently afebrile. The patient is hemodynamically stable, not requiring any pressor support. FiO2 is currently stable at 40%. No purulent secretions through the ET and no diarrhea has been reported. PHYSICAL EXAMINATION: Blood pressure 142/67, pulse of 112, temperature of 98.2. He is 96% on 40% FiO2. General description is an elderly male lying in bed in no distress. RESPIRATORY SYSTEM: Unlabored breathing with decreased intensity of breath sounds. No wheeze. HEART: S1, S2. Regular rate and rhythm. ABDOMEN: Soft. No tenderness. LABS: BUN of 14, creatinine 0.56. White count is up to 19. DIAGNOSTIC IMPRESSION AND PLAN: Patient with acute respiratory failure which is likely multifactorial in this patient with confirmed COVID-19 pneumonia, for which the patient has completed his Plaquenil therapy. Also had some mucus plugging requiring bronchoscopy. Those cultures are showing only [place], which is likely a colonizer. He did have elevated white count, more likely because of steroid effect. Will monitor him closely. Continue supportive care. MMODL / IJN: [id number] / SISSY
[2019-11-26 23:59] LABS: Glucose,Whole Blood 221 mg/dL (75-99)
[2019-11-27] MEDS: INSULIN ASPART (NovoLOG) 100 UNIT/ML VIAL SQ SCH ×10 (00:06→23:52)
[2019-11-27] MEDS: methylPREDNISolone SOD SUCCI 40 MG/ML 1 ML VIAL IV SCH ×5 (00:06→23:54)
[2019-11-27] MEDS: PROPOFOL 1,000 MG in EMPTY BAG 1 BAG IV SCH (04:10)
[2019-11-27 04:59] LABS: ABG Base Excess 16.1 mmol/L; ABG Oxygen Saturation 94.6 % (94-97); ABG PCO2 52 mmHg (35-45); ABG PH 7.49 (7.35-7.45); ABG PO2 75 mmHg (83-108); ABG TCO2 41 mmol/L (19-24)
[2019-11-27 05:06] LABS: Basophils % (A) 0 %; Eosinophils % (A) 0 %; HCT 43.6 % (39.0-53.0); HGB 13.9 gm/dL (13.0-17.5); Lymphocytes # (A) 0.2 k/uL (1.0-4.8); Lymphocytes % (A) 2 %; MCH 31.5 pg (25.0-35.0); MCHC 31.9 g/dL (31.0-37.0); MCV 98.7 fL (80.0-100.0); Mean Platelet Volume 9.3; Monocytes # (A) 0.5 k/uL (0-1.0); Monocytes % (A) 3 %; Neutrophils # (A) 14.7 k/uL (1.3-7.7); Neutrophils % (A) 95 %; Platelet Count 147 k/uL (150-450); RBC 4.42 m/uL (4.30-5.90); RDW 12.7 % (11.5-15.5); WBC 15.4 k/uL (3.8-10.6)
[2019-11-27 05:24] LABS: African American GFR (CKD) >90 (>60 ml/min/1.73 sqM); Blood Urea Nitrogen 45 mg/dL (9-20); Calcium 9.1 mg/dL (8.4-10.2); Chloride 99 mmol/L (98-107); Glucose 244 mg/dL (74-99); Non-African American GFR(CKD) >90 (>60 ml/min/1.73 sqM); Potassium 4.5 mmol/L (3.5-5.1); Sodium 139 mmol/L (137-145)
[2019-11-27 05:30] LABS: Anion Gap 3 mmol/L; Carbon Dioxide 37 mmol/L (22-30)
[2019-11-27 05:35] LABS: ABG HCO3 40 mmol/L (21-25); Allen Test Performed? no
[2019-11-27 06:53] LABS: Glucose,Whole Blood 235 mg/dL (75-99)
[2019-11-27] MEDS: SYMBICORT 160-4.5 MCG INHALER INHALATION SCH ×2 (07:32→20:02)
[2019-11-27] MEDS: ALBUTEROL INHALER 60 PUFF/8 GM INHALER (MHU) INHALATION SCH ×5 (07:32→20:02)
[2019-11-27] MEDS: DILTIAZEM ORAL 60 MG TAB OG-TUBE SCH (08:49)
[2019-11-27] MEDS: INSULIN DETEMIR (LEVEMIR) 100 UNIT/ML SYR SQ SCH ×2 (08:49→21:30)
[2019-11-27] MEDS: DIGOXIN 250 MCG TAB PO SCH (08:49)
[2019-11-27] MEDS: APIXABAN 5 MG TAB PO SCH ×2 (08:49→21:30)
[2019-11-27] MEDS: CHLORHEXIDINE GLUCONATE 15 ML CUP MUCOUS MEM SCH (08:49)
[2019-11-27] MEDS: PANTOPRAZOLE 40 MG/10 ML VIAL IVP SCH (08:50)
[2019-11-27] MEDS: ASPIRIN 81 MG PO SCH (08:50)
[2019-11-27] MEDS: ZINC SULFATE 220 MG CAP PO SCH (08:50)
[2019-11-27] MEDS: METOPROLOL TARTRATE 25 MG TAB PO SCH ×2 (08:50→21:30)
--- NOTE | 2019-11-27 10:21 | XR ---
EXAMINATION TYPE: XR chest 1V portable DATE OF EXAM: 11/27/2019 COMPARISON: November 26, 2019 HISTORY: SOB, Follow Up FINDINGS: Indwelling tubes and catheters are unchanged. Persistent left lower lobe consolidation with associated neural effusion. Hyperinflation of the right lung. Stable appearance of the cardio-mediastinal structures at this time. Pleural effusion unchanged. IMPRESSION: 1. Stable portable chest. Clinical correlation and follow up until resolution is recommended.
[2019-11-27 11:26] VITALS: BMI 34.5
[2019-11-27 11:53] LABS: Glucose,Whole Blood 212 mg/dL (75-99)
[2019-11-27] MEDS ORDERED: SCOPOLAMINE 1.5MG/72HR PATCH TRANSDERM SCH (12:00)
[2019-11-27] MEDS ORDERED: FUROSEMIDE 10 MG/ML 4 ML VIAL IV STA (12:59)
--- NOTE | 2019-11-27 13:02 | P.PN ---
Subjective Progress Note Date: 11/27/19 On 11/23/2019 and seeing the patient for a follow-up regarding respiratory failure. As mentioned earlier, the patient is a case of severe COPD with an FEV1 of 28% of predicted. The patient has a positive infection with COVID 19 . The patient had a left lower lobe atelectasis and the patient underwent a bronchoscopy last week and removal of mucous plugs. Cultures from the bronchoscopy came back all negative. The patient is also diabetic and has an abdominal aortic aneurysm in addition to that he has chronic atrial fibrillation, oriented disease and obstructive sleep apnea. This morning, the patient is assist-control mode of ventilation at the rate of 20 with a tidal volume of 450 and FiO2 of 50% with a PEEP of 10. The patient was sedated this morning with a propofol at the rate of 35 mcg/kg per minute. The patient is receiving vital HP at the rate of 41 mL an hour. The patient apparently was given a sedation holiday yesterday and following that he was given a spelled his breathing trial which he failed and he was placed back on sedation. He is getting another sedation holiday today. Based on today's evaluation, chest x- ray findings are essentially stable. There is some volume loss and atelectasis of the left lower lobe. The blood gas showed a pH of 7.4 3 with a pCO2 of 55 and pO2 of 83. Based on this, I dropped the PEEP down to 5 and I also doubt the FiO2 down to 40%. Subsequent blood gases showed a pH of 7.47 with a pCO2 of 52 and pO2 of 62. The patient's echoes at 12.5. The patient is afebrile for now. The patient is hemodynamically stable. The patient is not requiring any pressors for now. Note that he has a preserved limits. Ejection fraction of 55 %. The patient has been a positive fluid balance of at least 8-9 L over the past 24 hours. He has completed his course of Actonel. He is on IV Solu-Medrol 40 mg every 6 hours. He is still on zinc sulfate 220 mg once a day. He remains in atrial fibrillation. He is slightly bradycardic earlier today and I made recommendations to hold off on Cardizem accordingly. He is on long-term anticoagulation with Eliquis. On today's evaluation of 11/24/2019 and seeing the patient for a follow-up. Thi s is a patient with advanced COPD with an FEV1 of 28% of predicted and the patient has a left lower lobe pneumonia/atelectasis. Furthermore the patient was confirmed to be a Covid 19 positive pneumonia. Note that the patient had improved somewhat in his oxygenation. I was able to cut down his PEEP down to 5 and off FiO2 down to 40% on yesterday's sounds. Overnight the patient became hypoxic. The PEEP had to be increased up to 10 and FiO2 was brought up to 70%. Earlier this morning, the patient self extubated. 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 For now, the patient is back on a mechanical ventilator and the patient is currently sedated with propofol at the rate of 35 g per KG per minute. He remains in atrial fibrillation with a heart rate between 110 and 130. He is on assist control mode at the rate of 20 with a tidal volume of 450 and FiO2 of 75% with a PEEP of 10. Peak airway pressures around 31 with a setting of a pressure of 21. The patient is afebrile. The patient is hemodynamically stable. This is going to be a difficult wean. I suggested the possibility of doing a tracheostomy tube insertion and a PEG tube insertion. The patient has been confirmed to be a Covid 19 case back in 11/09/2019. This will be repeated today. Note that the test was repeated on 11/18/2019. If there is also negative, would say will be rather sensitive to proceed with a PEG and tracheostomy tube insertion. For that reason general surgical consultation was obtained. The patient's blood gases post intubation showed a pH of 7.43 with a pCO2 of 57 and pO2 of 69. Chest x-ray shows some volume loss and atelectasis in the left lung base. ET tube is in a good location for now. He is tolerating enteral feeding for enteral support. His digoxin level was within normal limits.he has completed his course of Plaquenil. He is still on zinc sulfate. He remains on IV Solu-Medrol 40 mg every 6 hours in addition to Symbicort and albuterol HFA 4 times a day [id number]. He was taken off Eliquis in preparation for possible PEG and trach. On 11/25/2019, the patient is being seen in follow-up today in the intensive care unit. Remains on mechanical ventilator. The patient is sedated. The patient remained on assist control mode of ventilator with an FiO2 of 75% and PEEP of 10 with a tidal volume of 450 and at 8 of 12. He had a chest x-ray this morning that showed still persistent volume loss and left lung base along with left lower lobe atelectasis. The blood gas showed a pH of 7.47 with a pCO2 of 52 and pO2 of 103. Based on this, I dropped the FiO2 down to 50%. He remains on a PEEP of 10. White cell count at 15.1. He is tolerating his tube feeds. Hemodynamically stable. He is afebrile. I had a lengthy discussion with the patient's on the phone. I was was going to talk about the possibility of undergoing a tracheostomy tube insertion and a PEG tube insertion on him as part of long-term meaning off the mechanical ventilator. Nevertheless, the did not consent to that. She told me that the patient would never have wanted to be intubated or placed on a mechanical ventilator for long period of time. She understands that his lung starting with have been quite severely impaired with an FEV1 of 28% of predicted consistent with severe COPD. As such, we are not going to proceed with the procedures as stated tomorrow. Based on my conversation with the , she wanted to give another trial of extubation if possible with the next 24-48 hours and consider comfort care measures and the patient failed extubation. I think this will be a reasonable approach for this patient. Otherwise, no other significant events overnight. The patient is producing adequate amount of urine output. Renal function stable. The patient remains on Symbicort 2 puffs twice a day in addition to Ventolin 2 puffs 4 times a day [id number], IV Solu Medrol, and he is on oral Cardizem 60 mg by mouth twice a day with adequate control of his underlying atrial fibrillation. He is on no anticoagulants for now. On 11/26/2019 and seeing the patient for a follow-up. The patient remains intubated on a mechanical ventilator. As mentioned earlier, no plans for a PEG or tracheostomy tube insertion upon the wishes of the . I had a lengthy discussion with her and our decision was to extubate this patient once ready to a nonrebreather facemask with the idea that the patient will not be reintubated if he decompensates. On today's evaluation he is an assist-control mode with a rate of 20 with a PEEP of 10 FiO2 of 50% and a tidal volume of 400. There is improved aeration of the left lung base and there is improvement in the volume status and the left upper lobe area. Distal some atelectasis in the left lung base. The patient is afebrile. The patient remains on IV Rocephin. He remains on plaque with treating Covid 19 infection and the patient remains on IV Solu Medrol 40 mg every 12 hours. No fever. No chills. Tolerating enteral feeding for nutritional support. No significant signs of any fluid overload. Based on all this, I discontinued the propofol and with checked the weaning parameters. The patient the rapid shallow breathing index of 80. I was considering a spontaneous breathing trial and possible extubation today. Nevertheless, I was told by the respiratory therapist and the nursing staff that the patient has significant amount of orotracheal secretions and he may not past the trial and extubation. We decided to postpone this for another 24 hours. Meanwhile, we'll continue the supportive care of this patient and the family informed on the exact timing of the extubation and this will be done with the next 24-48 hours. He is afebrile for now. Is producing adequate amount of urine output. No other significant events. Remains on Lovenox for DVT prophylaxis. The blood gases from this morning showed a pH of 7.48 with a pCO2 of 53 and pO2 of 81 and this was on FiO2 of 50%. Serum triglyceride level is at 99. On today's evaluation of 11/27/2019, the patient is being seen for a follow-up. The patient this morning is on an assist-control mode of ventilator with a rate of 20 with a tidal volume of 450 and FiO2 of 40% with a PEEP of 10. The chest x-ray from today showed persistent left lower lobe consolidation/effusion. For the most part the left lower lobe seems to be atelectatic. There is adequate aeration in the left upper lobe. The right lung is clear and there may be some small effusion the right lung base. The patient is afebrile. The patient is hemodynamically stable. The patient was in a 20 g of propofol this morning. I made recommendations to wean off the propofol and following that I check his weaning parameters it seems to be decent. At that point I decided to extubate this patient to a nonrebreather facemask and may also informed the of this extubation. At this point in time the patient is being monitored here in the ICU. No plans for the intubation should he develop any respiratory failure. For now occurring to continue this patient on a on the percent nonrebreather facemask. No nausea. No vomiting. No emesis. He does have some limited cough and his cough is weak postextubation. He is afebrile for now. Seems to be a bit anxious. He is following commands and answering questions appropriately. His last echo is a 15.4. Hemoglobin is at 15.9. Serum bicarbonate is at 37. He also has a pH of 7.49 with a pCO2 of 52 and pO2 of 75 and this was done on the mechanical ventilator on the above-mentioned ventilator setting. Scopolam ine patch will be added for orotracheal secretions. We'll continue the IV Solu Medrol. We'll give the patient dose of Lasix 40 mg IV push. Objective - Vital Signs Vital signs: Vital Signs Temp 98.2 F 11/27/19 09:00 Pulse 89 11/27/19 12:00 Resp 22 11/27/19 12:00 BP 126/76 11/26/19 05:00 Pulse Ox 91 L 11/27/19 12:00 Intake & Output 11/26/19 11/27/19 11/27/19 18:59 06:59 18:59 Intake Total 292.261 8908 359.315 Output Total 1560 950 775 Balance -612.983 327 -415.685 Weight 116.5 kg 115.5 kg 115.5 kg Intake: IV 180 192 106 Lactated Ringers 1,000 ml 120 120 50 @ 10 mls/hr IV .Q24H JOE Rx#:[id number] Normal Saline Pressure 60 72 56 Bag Intake, IV Titration 70.017 200 84.315 Amount Propofol 1,000 mg In 70.017 200 84.315 Empty Bag 1 bag @ Titrate IV .Q0M JOE Rx#: [id number] Oral 60 Tube Feeding 547 795 159 Lipid 10 Lactated Ringers 1,000 ml 10 @ 10 mls/hr IV .Q24H JOE Rx#:[id number] Other 90 90 Output: Urine 1560 950 775 Other: Voiding Method Indwelling Catheter Indwelling Catheter Indwelling Catheter ABP, PAP, CO, CI - Last Documented Arterial Blood Pressure 163/67 - Exam Gen. appearance, slightly anxious postextubation and patient is currently on 100% nonrebreather facemask. At times he gets confused and delirious. He is agitated at this point in time. He is not using any episodes of breathing postextubation. Head exam was generally normal. There was no scleral icterus or corneal arcus. Mucous membranes were moist. Neck was supple and without jugular venous distension, thyromegaly, or carotid bruits. Carotids were easily palpable bilaterally. There was no adenopathy. Lungs sounds are diminished bilaterally along with some scattered expiratory wheezes throughout the lung rasheed. Cardiac exam revealed the PMI to be normally situated and sized. The rhythm was regular and no extrasystoles were noted during several minutes of auscultation. The first and second heart sounds were normal and physiologic splitting of the second heart sound was noted. There were no murmurs, rubs, clicks, or gallops Abdominal exam revealed normal bowel sounds. The abdomen was soft, non-tender, and without masses, organomegaly, or appreciable enlargement of the abdominal aorta. Examination of the extremities revealed easily palpable radial, femoral and pedal pulses. There was no cyanosis, clubbing or edema. There is trace edema lower extremities bilaterally. Examination of the skin revealed no evidence of significant rashes, suspicious appearing nevi or other concerning lesions. Neurologically the patient is awake and moving all 4 extremities without any limitation. Slightly restless yet no agitation. - Labs CBC & Chem 7: 11/27/19 04:45 11/27/19 04:45 Labs: Abnormal Lab Results - Last 24 Hours (Table) 11/26/19 11/26/19 11/27/19 Range/Units 17:05 23:58 04:45 WBC 15.4 H (3.8-10.6) k/uL Plt Count 147 L (150-450) k/uL Neutrophils # 14.7 H (1.3-7.7) k/uL Lymphocytes # 0.2 L (1.0-4.8) k/uL ABG pH (7.35-7.45) ABG pCO2 (35-45) mmHg ABG pO2 (83-108) mmHg ABG HCO3 (21-25) mmol/L ABG Total CO2 (19-24) mmol/L Carbon Dioxide (22-30) mmol/L BUN (9-20) mg/dL Creatinine (0.66-1.25) mg/dL Glucose (74-99) mg/dL POC Glucose (mg/dL) 202 H 221 H (75-99) mg/dL 11/27/19 11/27/19 11/27/19 Range/Units 04:45 04:55 06:51 WBC (3.8-10.6) k/uL Plt Count (150-450) k/uL Neutrophils # (1.3-7.7) k/uL Lymphocytes # (1.0-4.8) k/uL ABG pH 7.49 H (7.35-7.45) ABG pCO2 52 H (35-45) mmHg ABG pO2 75 L (83-108) mmHg ABG HCO3 40 H* (21-25) mmol/L ABG Total CO2 41 H (19-24) mmol/L Carbon Dioxide 37 H (22-30) mmol/L BUN 45 H (9-20) mg/dL Creatinine 0.51 L (0.66-1.25) mg/dL Glucose 244 H (74-99) mg/dL POC Glucose (mg/dL) 235 H (75-99) mg/dL 11/27/19 Range/Units 11:50 WBC (3.8-10.6) k/uL Plt Count (150-450) k/uL Neutrophils # (1.3-7.7) k/uL Lymphocytes # (1.0-4.8) k/uL ABG pH (7.35-7.45) ABG pCO2 (35-45) mmHg ABG pO2 (83-108) mmHg ABG HCO3 (21-25) mmol/L ABG Total CO2 (19-24) mmol/L Carbon Dioxide (22-30) mmol/L BUN (9-20) mg/dL Creatinine (0.66-1.25) mg/dL Glucose (74-99) mg/dL POC Glucose (mg/dL) 212 H (75-99) mg/dL Assessment and Plan Plan: 1 acute left lower lobe pneumonia with volume loss and mucous plugs po stintubation, post bronchoscopy and therapeutic it was suctioning and removal of mucous plugs. Cultures are negative and the patient is positive for COVID 19 coronavirus infection. The patient self extubated himself and failed. He had to be reintubated. The patient was originally diagnosed having Covid 19 on 11/09/2019. For now, the patient was extubated again to a nonrebreather facemask. He is going to monitored very closely. The decision for now as not to intubate should he fail this second extubation. Mother the first extubation was not planned and the patient did self extubated and subsequently failed. Currently is on 100% nonrebreather facemask. Chest x-ray shows left basilar a telectatic changes unchanged compared to yesterday. 2 acute coronavirus COVID 19 infection, completed a course of Plaquenil 3 acute hypoxic respiratory failure, secondary to above 4 COPD, severe with an FEV1 of 28% of predicted 5 history of paroxysmal atrial fibrillation currently on a combination of digoxin and Cardizem and Eliquis for long-term anticoagulation. 6 positive fluid balance and increased edema lower extremities bilaterally, stable 7 coronary artery disease 8 obstructive sleep apnea. 9 diabetes mellitus 10 abdominal aortic aneurysm Plan Keep the patient on 100% nonrebreather facemask Give 40 mg of IV Lasix Continue IV Solu-Medrol Continue Symbicort HFA Continue Ventolin HFA Hold tube feeds postextubation Levemir insulin 20 units twice a day along with a NovoLog 12 units subcu every 6 hours No plans for a PEG and trach per family's wishes DO NOT RESUSCITATE DO NOT INTUBATE CODE STATUS should he failed extubation. Will consider comfort care measures if he failed extubation As component been patch 1.5 mg Monitor hemodynamics Case was discussed with the over the phone We'll continue to follow. Condition is critical and the valuation was on a more than 30 minutes.
[2019-11-27] MEDS ORDERED: HALOPERIDOL LACTATE 5 MG/ML 1 ML VIAL ONE (14:45)
[2019-11-27] MEDS: HALOPERIDOL LACTATE 5 MG/ML 1 ML VIAL IVP PRN ×3 (14:47→15:55)
[2019-11-27] MEDS ORDERED: DILTIAZEM DRIP BOLUS FROM BAG 1 MG SOLN IV ONE (15:56)
[2019-11-27] MEDS: DILTIAZEM 125 MG in SODIUM CHLORIDE 0.9% 100 ML IV SCH (16:24)
[2019-11-27 16:36] LABS: Glucose,Whole Blood 131 mg/dL (75-99)
--- NOTE | 2019-11-27 17:16 | PN ---
PROGRESS NOTE DATE OF SERVICE: 11/27/2019 REASON FOR FOLLOWUP: Acute COVID-19 pneumonia. INTERVAL HISTORY: The patient is currently afebrile. Patient has been extubated. He is hemodynamically stable, not requiring any pressor support, currently on 6 L of nasal cannula oxygen. He is slightly sleepy, lethargic, but no vomiting or diarrhea has been reported. PHYSICAL EXAMINATION: Admission blood pressure 105/63 with a pulse of 131, temperature 97.5. He is 95% on 6 L nasal cannula. General description is an elderly male, lying in bed in no distress. RESPIRATORY SYSTEM: Unlabored breathing, decreased breath sounds at the bases. No wheeze. HEART: S1, S2 with regular rate and rhythm. ABDOMEN: Soft, no tenderness. LABS: Hemoglobin 13.8, white count of 15.4. BUN of 45, creatinine 0.51. DIAGNOSTIC IMPRESSION AND PLAN: Patient with acute COVID-19 pneumonia. Patient seemed to have shown some clinical improvement, has been extubated. Will monitor clinical course closely and just completed his Plaquenil course. Continue with respiratory support, zinc and steroid. MMODL / IJN: [id number] /
[2019-11-27] MEDS: HYDROmorphone 0.5 MG/0.5 ML SYRINGE IVP PRN (18:39)
[2019-11-27] MEDS: LACTATED RINGERS 1,000 ML IV SCH (19:00)
[2019-11-27 23:47] LABS: Glucose,Whole Blood 148 mg/dL (75-99)
[2019-11-27] MEDS: METOPROLOL TARTRATE 5 MG/5 ML VIAL IVP SCH (23:54)
[2019-11-28] MEDS: HALOPERIDOL LACTATE 5 MG/ML 1 ML VIAL IVP PRN (02:26)
[2019-11-28 04:44] LABS: Basophils % (A) 0 %; Eosinophils % (A) 0 %; HCT 45.8 % (39.0-53.0); HGB 15.2 gm/dL (13.0-17.5); Lymphocytes # (A) 0.2 k/uL (1.0-4.8); Lymphocytes % (A) 1 %; MCH 32.2 pg (25.0-35.0); MCHC 33.2 g/dL (31.0-37.0); MCV 97.1 fL (80.0-100.0); Mean Platelet Volume 8.8; Monocytes # (A) 0.6 k/uL (0-1.0); Monocytes % (A) 3 %; Neutrophils # (A) 18.5 k/uL (1.3-7.7); Neutrophils % (A) 96 %; Platelet Count 164 k/uL (150-450); RBC 4.71 m/uL (4.30-5.90); RDW 12.9 % (11.5-15.5); WBC 19.4 k/uL (3.8-10.6)
[2019-11-28 04:57] LABS: African American GFR (CKD) >90 (>60 ml/min/1.73 sqM); Blood Urea Nitrogen 38 mg/dL (9-20); Calcium 9.3 mg/dL (8.4-10.2); Chloride 101 mmol/L (98-107); Glucose 130 mg/dL (74-99); Non-African American GFR(CKD) >90 (>60 ml/min/1.73 sqM); Potassium 4.4 mmol/L (3.5-5.1); Sodium 142 mmol/L (137-145)
[2019-11-28 05:05] LABS: Anion Gap 2 mmol/L
[2019-11-28 05:14] LABS: Carbon Dioxide 39 mmol/L (22-30)
[2019-11-28] MEDS: HYDROmorphone 1 MG/ML 1 ML SYRINGE IVP PRN ×3 (05:41→17:15)
[2019-11-28] MEDS: INSULIN ASPART (NovoLOG) 100 UNIT/ML VIAL SQ SCH ×6 (05:51→16:58)
[2019-11-28 05:52] LABS: Glucose,Whole Blood 126 mg/dL (75-99)
[2019-11-28] MEDS: methylPREDNISolone SOD SUCCI 40 MG/ML 1 ML VIAL IV SCH ×3 (05:52→17:01)
[2019-11-28] MEDS: METOPROLOL TARTRATE 5 MG/5 ML VIAL IVP SCH ×3 (05:52→17:01)
[2019-11-28] MEDS: LACTATED RINGERS 1,000 ML IV SCH (06:03)
[2019-11-28] MEDS: SYMBICORT 160-4.5 MCG INHALER INHALATION SCH ×2 (07:24→19:28)
[2019-11-28] MEDS: ALBUTEROL INHALER 60 PUFF/8 GM INHALER (MHU) INHALATION SCH ×4 (07:24→19:28)
[2019-11-28] MEDS: ASPIRIN 81 MG PO SCH (07:57)
[2019-11-28] MEDS: DIGOXIN 250 MCG TAB PO SCH (07:57)
[2019-11-28] MEDS: ZINC SULFATE 220 MG CAP PO SCH (07:58)
[2019-11-28 08:32] LABS: Glucose,Whole Blood 100 mg/dL (75-99)
[2019-11-28] MEDS: INSULIN DETEMIR (LEVEMIR) 100 UNIT/ML SYR SQ SCH ×2 (08:34→21:56)
[2019-11-28] MEDS: PANTOPRAZOLE 40 MG/10 ML VIAL IVP SCH (08:35)
[2019-11-28 11:49] LABS: Glucose,Whole Blood 95 mg/dL (75-99)
--- NOTE | 2019-11-28 13:12 | P.PN ---
Subjective Progress Note Date: 11/28/19 On 11/23/2019 and seeing the patient for a follow-up regarding respiratory failure. As mentioned earlier, the patient is a case of severe COPD with an FEV1 of 28% of predicted. The patient has a positive infection with COVID 19 . The patient had a left lower lobe atelectasis and the patient underwent a bronchoscopy last week and removal of mucous plugs. Cultures from the bronchoscopy came back all negative. The patient is also diabetic and has an abdominal aortic aneurysm in addition to that he has chronic atrial fibrillation, oriented disease and obstructive sleep apnea. This morning, the patient is assist-control mode of ventilation at the rate of 20 with a tidal volume of 450 and FiO2 of 50% with a PEEP of 10. The patient was sedated this morning with a propofol at the rate of 35 mcg/kg per minute. The patient is receiving vital HP at the rate of 41 mL an hour. The patient apparently was given a sedation holiday yesterday and following that he was given a spelled his breathing trial which he failed and he was placed back on sedation. He is getting another sedation holiday today. Based on today's evaluation, chest x- ray findings are essentially stable. There is some volume loss and atelectasis of the left lower lobe. The blood gas showed a pH of 7.4 3 with a pCO2 of 55 and pO2 of 83. Based on this, I dropped the PEEP down to 5 and I also doubt the FiO2 down to 40%. Subsequent blood gases showed a pH of 7.47 with a pCO2 of 52 and pO2 of 62. The patient's echoes at 12.5. The patient is afebrile for now. The patient is hemodynamically stable. The patient is not requiring any pressors for now. Note that he has a preserved limits. Ejection fraction of 55 %. The patient has been a positive fluid balance of at least 8-9 L over the past 24 hours. He has completed his course of Actonel. He is on IV Solu-Medrol 40 mg every 6 hours. He is still on zinc sulfate 220 mg once a day. He remains in atrial fibrillation. He is slightly bradycardic earlier today and I made recommendations to hold off on Cardizem accordingly. He is on long-term anticoagulation with Eliquis. On today's evaluation of 11/24/2019 and seeing the patient for a follow-up. Thi s is a patient with advanced COPD with an FEV1 of 28% of predicted and the patient has a left lower lobe pneumonia/atelectasis. Furthermore the patient was confirmed to be a Covid 19 positive pneumonia. Note that the patient had improved somewhat in his oxygenation. I was able to cut down his PEEP down to 5 and off FiO2 down to 40% on yesterday's sounds. Overnight the patient became hypoxic. The PEEP had to be increased up to 10 and FiO2 was brought up to 70%. Earlier this morning, the patient self extubated. The patient had to be reintubated by [facility]. For now, the patient is back on a mechanical ventilator and the patient is currently sedated with propofol at the rate of 35 g per KG per minute. He remains in atrial fibrillation with a heart rate between 110 and 130. He is on assist control mode at the rate of 20 with a tidal volume of 450 and FiO2 of 75% with a PEEP of 10. Peak airway pressures around 31 with a setting of a pressure of 21. The patient is afebrile. The patient is hemodynamically stable. This is going to be a difficult wean. I suggested the possibility of doing a tracheostomy tube insertion and a PEG tube insertion. The patient has been confirmed to be a Covid 19 case back in 11/09/2019. This will be repeated today. Note that the test was repeated on 11/18/2019. If there is also negative, would say will be rather sensitive to proceed with a PEG and tracheostomy tube insertion. For that reason general surgical consultation was obtained. The patient's blood gases post intubation showed a pH of 7.43 with a pCO2 of 57 and pO2 of 69. Chest x-ray shows some volume loss and atelectasis in the left lung base. ET tube is in a good location for now. He is tolerating enteral feeding for enteral support. His digoxin level was within normal limits.he has completed his course of Plaquenil. He is still on zinc sulfate. He remains on IV Solu-Medrol 40 mg every 6 hours in addition to Symbicort and albuterol HFA 4 times a day [id number]. He was taken off Eliquis in preparation for possible PEG and trach. On 11/25/2019, the patient is being seen in follow-up today in the intensive care unit. Remains on mechanical ventilator. The patient is sedated. The patient remained on assist control mode of ventilator with an FiO2 of 75% and PEEP of 10 with a tidal volume of 450 and at 8 of 12. He had a chest x-ray this morning that showed still persistent volume loss and left lung base along with left lower lobe atelectasis. The blood gas showed a pH of 7.47 with a pCO2 of 52 and pO2 of 103. Based on this, I dropped the FiO2 down to 50%. He remains on a PEEP of 10. White cell count at 15.1. He is tolerating his tube feeds. Hemodynamically stable. He is afebrile. I had a lengthy discussion with the patient's on the phone. I was was going to talk about the possibility of undergoing a tracheostomy tube insertion and a PEG tube insertion on him as part of long-term meaning off the mechanical ventilator. Nevertheless, the did not consent to that. She told me that the patient would never have wanted to be intubated or placed on a mechanical ventilator for long period of time. She understands that his lung starting with have been quite severely impaired with an FEV1 of 28% of predicted consistent with severe COPD. As such, we are not going to proceed with the procedures as stated tomorrow. Based on my conversation with the , she wanted to give another trial of extubation if possible with the next 24-48 hours and consider comfort care measures and the patient failed extubation. I think this will be a reasonable approach for this patient. Otherwise, no other significant events overnight. The patient is producing adequate amount of urine output. Renal function stable. The patient remains on Symbicort 2 puffs twice a day in addition to Ventolin 2 puffs 4 times a day [id number], IV Solu Medrol, and he is on oral Cardizem 60 mg by mouth twice a day with adequate control of his underlying atrial fibrillation. He is on no anticoagulants for now. On 11/26/2019 and seeing the patient for a follow-up. The patient remains intubated on a mechanical ventilator. As mentioned earlier, no plans for a PEG or tracheostomy tube insertion upon the wishes of the . I had a lengthy discussion with her and our decision was to extubate this patient once ready to a nonrebreather facemask with the idea that the patient will not be reintubated if he decompensates. On today's evaluation he is an assist-control mode with a rate of 20 with a PEEP of 10 FiO2 of 50% and a tidal volume of 400. There is improved aeration of the left lung base and there is improvement in the volume status and the left upper lobe area. Distal some atelectasis in the left lung base. The patient is afebrile. The patient remains on IV Rocephin. He remains on plaque with treating Covid 19 infection and the patient remains on IV Solu Medrol 40 mg every 12 hours. No fever. No chills. Tolerating enteral feeding for nutritional support. No significant signs of any fluid overload. Based on all this, I discontinued the propofol and with checked the weaning parameters. The patient the rapid shallow breathing index of 80. I was considering a spontaneous breathing trial and possible extubation today. Nevertheless, I was told by the respiratory therapist and the nursing staff that the patient has significant amount of orotracheal secretions and he may not past the trial and extubation. We decided to postpone this for another 24 hours. Meanwhile, we'll continue the supportive care of this patient and the family informed on the exact timing of the extubation and this will be done with the next 24-48 hours. He is afebrile for now. Is producing adequate amount of urine output. No other significant events. Remains on Lovenox for DVT prophylaxis. The blood gases from this morning showed a pH of 7.48 with a pCO2 of 53 and pO2 of 81 and this was on FiO2 of 50%. Serum triglyceride level is at 99. On today's evaluation of 11/27/2019, the patient is being seen for a follow-up. The patient this morning is on an assist-control mode of ventilator with a rate of 20 with a tidal volume of 450 and FiO2 of 40% with a PEEP of 10. The chest x-ray from today showed persistent left lower lobe consolidation/effusion. For the most part the left lower lobe seems to be atelectatic. There is adequate aeration in the left upper lobe. The right lung is clear and there may be some small effusion the right lung base. The patient is afebrile. The patient is hemodynamically stable. The patient was in a 20 g of propofol this morning. I made recommendations to wean off the propofol and following that I check his weaning parameters it seems to be decent. At that point I decided to extubate this patient to a nonrebreather facemask and may also informed the of this extubation. At this point in time the patient is being monitored here in the ICU. No plans for the intubation should he develop any respiratory failure. For now occurring to continue this patient on a on the percent nonrebreather facemask. No nausea. No vomiting. No emesis. He does have some limited cough and his cough is weak postextubation. He is afebrile for now. Seems to be a bit anxious. He is following commands and answering questions appropriately. His last echo is a 15.4. Hemoglobin is at 15.9. Serum bicarbonate is at 37. He also has a pH of 7.49 with a pCO2 of 52 and pO2 of 75 and this was done on the mechanical ventilator on the above-mentioned ventilator setting. Scopolam ine patch will be added for orotracheal secretions. We'll continue the IV Solu Medrol. We'll give the patient dose of Lasix 40 mg IV push. On 11/28/2019 the patient is being seen for a follow-up. Events from yesterday were noted. The patient was extubated initially 200% on a beta facemask and s ubsequently was weaned down to 6 L about 2 by nasal cannula. He was quite agitated following the extubation currently is much more calm and comfortable. He was given Haldol on and off yesterday to control his assistance and agitation. Currently is resting comfortably in bed. No signs of any sign ificant respiratory distress. He was having some respiratory secretions for which scopolamine patch was added. He is still in atrial fibrillation. His rate is under better control. He is afebrile. His repeat Covid 19 analysis came back positive. He is on digoxin for rate control at a dose of 0.25 mg by mouth daily. He is unable to take his oral Lopressor as listed to IV Lopressor 5 mg every 6 hours. I will also contemplating of changing his anticoagulants to subcu Lovenox 1 mg per KG twice a day. He is nothing by mouth for now. He is arousable however is extremely weak. He cannot hold a conversation yet. He was able to open up his eyes and identified me as being his doctor. His white cell count of 19.4. Creatinine stable at 0.5. Objective - Vital Signs Vital signs: Vital Signs Temp 98.1 F 11/28/19 08:00 Pulse 80 11/28/19 11:00 Resp 14 11/28/19 11:41 BP 126/86 11/28/19 11:00 Pulse Ox 96 11/28/19 11:00 Intake & Output 11/27/19 11/28/19 11/28/19 18:59 06:59 18:59 Intake Total 479.315 251 185 Output Total 1700 1060 445 Balance -1220.685 -809 -260 Weight 115.5 kg 112.5 kg Intake: IV 226 251 185 Diltiazem 125 mg In 55 25 Sodium Chloride 0.9% 100 ml @ Per Protocol IV .Q0M JOE Rx#:[id number] Lactated Ringers 1,000 ml 110 120 130 @ 10 mls/hr IV .Q24H JOE Rx#:[id number] Normal Saline Pressure 116 76 30 Bag Intake, IV Titration 84.315 Amount Propofol 1,000 mg In 84.315 Empty Bag 1 bag @ Titrate IV .Q0M JOE Rx#: [id number] Tube Feeding 159 Lipid 10 Lactated Ringers 1,000 ml 10 @ 10 mls/hr IV .Q24H JOE Rx#:[id number] Output: Urine 1700 1060 445 Other: Voiding Method Indwelling Catheter Indwelling Catheter Indwelling Catheter # Voids 6 ABP, PAP, CO, CI - Last Documented Arterial Blood Pressure 141/66 - Exam Gen. appearance, currently on 6 L of oxygen by nasal cannula. He is mouth breathing. He is lethargic and weak. He is unable to speak or swallow yet. No signs of any significant respiratory distress. He is able to open up his eyes and withdrawal upon stimulation. He would drift back to sleep if left unstimulated. Head exam was generally normal. There was no scleral icterus or corneal arcus. Mucous membranes are essentially dry and the patient is mouth breathing for now. Neck was supple and without jugular venous distension, thyromegaly, or carotid bruits. Carotids were easily palpable bilaterally. There was no adenopathy. Lungs sounds are diminished bilaterally along with some scattered expiratory wheezes throughout the lung rasheed. Cardiac exam revealed the PMI to be normally situated and sized. The rhythm was irregular consistent with atrial fibrillation and no extrasystoles were noted during several minutes of auscultation. The first and second heart sounds were normal and physiologic splitting of the second heart sound was noted. There were no murmurs, rubs, clicks, or gallops Abdominal exam revealed normal bowel sounds. The abdomen was soft, non-tender, and without masses, organomegaly, or appreciable enlargement of the abdominal a maria teresa. Examination of the extremities revealed easily palpable radial, femoral and pedal pulses. There was no cyanosis, clubbing or edema. There is trace edema lower extremities bilaterally. Examination of the skin revealed no evidence of significant rashes, suspicious appearing nevi or other concerning lesions. Neurologically the patient is awake and moving all 4 extremities without any limitation. Very much lethargic and drowsy at this point in time and the patient received Haldol throughout the day yesterday. With her also painful stimulation. The significant motor weakness both in upper and lower extremities. Pupils are equal and reactive to light. No facial asymmetry. - Labs CBC & Chem 7: 11/28/19 04:25 11/28/19 04:25 Labs: Abnormal Lab Results - Last 24 Hours (Table) 11/27/19 11/27/19 11/28/19 Range/Units 16:35 23:45 04:25 WBC 19.4 H (3.8-10.6) k/uL Neutrophils # 18.5 H (1.3-7.7) k/uL Lymphocytes # 0.2 L (1.0-4.8) k/uL Carbon Dioxide (22-30) mmol/L BUN (9-20) mg/dL Creatinine (0.66-1.25) mg/dL Glucose (74-99) mg/dL POC Glucose (mg/dL) 131 H 148 H (75-99) mg/dL 11/28/19 11/28/19 11/28/19 Range/Units 04:25 05:45 08:31 WBC (3.8-10.6) k/uL Neutrophils # (1.3-7.7) k/uL Lymphocytes # (1.0-4.8) k/uL Carbon Dioxide 39 H (22-30) mmol/L BUN 38 H (9-20) mg/dL Creatinine 0.51 L (0.66-1.25) mg/dL Glucose 130 H (74-99) mg/dL POC Glucose (mg/dL) 126 H 100 H (75-99) mg/dL Assessment and Plan Plan: 1 acute left lower lobe pneumonia with volume loss and mucous plugs postintubation, post bronchoscopy and therapeutic it was suctioning and removal of mucous plugs. Cultures are negative and the patient is positive for COVID 19 coronavirus infection. The patient self extubated himself and failed. He had to be reintubated. The patient was originally diagnosed having Covid 19 on 11/09/2019. The patient was extubated on 11/27/2019 and is currently on 6 L of oxygen by his cannula. The follow-up chest x-ray was not done today. This will be repeated tomorrow. Meanwhile, the patient's is breathing comfortably. He has a weak cough. He has significant motor weakness both in upper and lower extremities. Rest or secretions were other concern the patient was given scopolamine patch. The patient was given a dose of diuretics 40 mg IV yesterday and is currently on KVO IV fluids.. Note that the patient's CODE STATUS is DNR/ DNI. He is being considered for comfort care measures should he failed his trial of extubation. His been extubated for the past 24 hours. 2 acute coronavirus COVID 19 infection, completed a course of Plaquenil and zinc sulfate and the repeat Covid analysis came back positive and this was done on 11/24/2019 3 acute hypoxic respiratory failure, secondary to above, currently on 60 digoxin by nasal cannula. 4 COPD, severe with an FEV1 of 28% of predicted 5 history of paroxysmal atrial fibrillation currently on a combination of digoxin and Cardizem and Eliquis for long-term anticoagulation. 6 positive fluid balance and increased edema lower extremities bilaterally, stable 7 coronary artery disease 8 obstructive sleep apnea. 9 diabetes mellitus 10 abdominal aortic aneurysm Plan Keep the patient on 6 L of oxygen by nasal cannula Continue IV Solu-Medrol Continue Symbicort HFA Continue Ventolin HFA Levemir insulin 20 units twice a day along with a NovoLog 12 units subcu every 6 hours DO NOT RESUSCITATE DO NOT INTUBATE CODE STATUS should he fail. Monitor hemodynamics Haldol for agitation and delirium Repeat chest x-ray in the morning Aspiration precautions and keep the patient nothing by mouth for now Case was discussed with the over the phone We'll continue to follow. Condition is critical and the valuation was on a more than 30 minutes. Time with Patient: Greater than 30
[2019-11-28] MEDS: DILTIAZEM 125 MG in SODIUM CHLORIDE 0.9% 100 ML IV SCH (13:47)
[2019-11-28] MEDS: ENOXAPARIN 100 MG/ML SYRINGE SQ SCH ×2 (13:47→21:56)
[2019-11-28 17:17] LABS: Glucose,Whole Blood 99 mg/dL (75-99)
[2019-11-28] MEDS ORDERED: ANIDULAFUNGIN 200 MG in SODIUM CHLORIDE 0.9% 200 ML IVPB ONE (22:00)
[2019-11-28] MEDS ORDERED: LACTATED RINGERS 1,000 ML IV SCH (23:00)
[2019-11-28] MEDS: HYDROmorphone 0.5 MG/0.5 ML SYRINGE IVP PRN (23:06)
[2019-11-28] MEDS: ATROPINE OPHTH SOLN 1% 5ML BTL SUBLINGUAL PRN (23:11)
[2019-11-28 23:22] VITALS: BP 163/88
[2019-11-29] MEDS ORDERED: MORPHINE SULFATE 4 MG/ML SYRINGE IVP ONE (02:31)
[2019-11-29] MEDS ORDERED: MORPHINE SULFATE 2 MG/ML SYRINGE IV PRN (02:31)
[2019-11-29] MEDS ORDERED: LORazepam 2 MG/ML INJ IV PRN (02:31)
[2019-11-29] MEDS: MORPHINE SULFATE (100 MG/2 ML) 100 MG in SODIUM CHLORIDE 0.9% 100 ML IV SCH ×2 (03:26→17:00)
[2019-11-29] MEDS: ATROPINE OPHTH SOLN 1% 5ML BTL SUBLINGUAL PRN (06:30)
--- NOTE | 2019-11-29 07:58 | PN ---
PROGRESS NOTE DATE OF SERVICE: 11/28/2019 REASON FOR FOLLOW UP: Acute COVID-19 pneumonia. INTERVAL HISTORY: The patient is currently afebrile, has been breathing comfortably on nasal cannula oxygen. Still remains to be lethargic. No vomiting or diarrhea has been reported. Oral intake remains to be poor. PHYSICAL EXAMINATION: Blood pressure 119/96, pulse of 87, temperature 97.7. He is 93% on 6 L nasal cannula. General description is an elderly male lying in bed in no distress. Respiratory system: Unlabored breathing. Decreased intensity in the breath sounds. No wheeze. Heart S1, S2. Regular rate and rhythm. Abdomen soft, no tenderness. LABS: Hemoglobin is 15.8, white count of 19.4, BUN of 38, creatinine 0.51. DIAGNOSTIC IMPRESSION AND PLAN: 1. Patient with acute COVID-19 pneumonia that has been adequately treated. The patient has completed his Plaquenil. 2. Patient with elevated white count likely combination of steroids and possible oropharyngeal candidiasis. In view of his overall poor oral intake, we will add IV Diflucan, see clinical response. 3. Monitor clinical course closely. MMODL / IJN: [id number] / [id number]
[2019-11-29] MEDS: HYDROmorphone 1 MG/ML 1 ML SYRINGE IVP PRN (08:00)
[2019-11-29] MEDS: SYMBICORT 160-4.5 MCG INHALER INHALATION SCH (08:06)
[2019-11-29] MEDS: ALBUTEROL INHALER 60 PUFF/8 GM INHALER (MHU) INHALATION SCH ×2 (08:06→11:39)
[2019-11-29 10:44] VITALS: PULSE 113; RESP 11; TEMP 97.2
--- NOTE | 2019-11-29 13:13 | P.PN ---
Subjective Progress Note Date: 11/29/19 On 11/23/2019 and seeing the patient for a follow-up regarding respiratory failure. As mentioned earlier, the patient is a case of severe COPD with an FEV1 of 28% of predicted. The patient has a positive infection with COVID 19 . The patient had a left lower lobe atelectasis and the patient underwent a bronchoscopy last week and removal of mucous plugs. Cultures from the bronchoscopy came back all negative. The patient is also diabetic and has an abdominal aortic aneurysm in addition to that he has chronic atrial fibrillation, oriented disease and obstructive sleep apnea. This morning, the patient is assist-control mode of ventilation at the rate of 20 with a tidal volume of 450 and FiO2 of 50% with a PEEP of 10. The patient was sedated this morning with a propofol at the rate of 35 mcg/kg per minute. The patient is receiving vital HP at the rate of 41 mL an hour. The patient apparently was given a sedation holiday yesterday and following that he was given a spelled his breathing trial which he failed and he was placed back on sedation. He is getting another sedation holiday today. Based on today's evaluation, chest x- ray findings are essentially stable. There is some volume loss and atelectasis of the left lower lobe. The blood gas showed a pH of 7.4 3 with a pCO2 of 55 and pO2 of 83. Based on this, I dropped the PEEP down to 5 and I also doubt the FiO2 down to 40%. Subsequent blood gases showed a pH of 7.47 with a pCO2 of 52 and pO2 of 62. The patient's echoes at 12.5. The patient is afebrile for now. The patient is hemodynamically stable. The patient is not requiring any pressors for now. Note that he has a preserved limits. Ejection fraction of 55 %. The patient has been a positive fluid balance of at least 8-9 L over the past 24 hours. He has completed his course of Actonel. He is on IV Solu-Medrol 40 mg every 6 hours. He is still on zinc sulfate 220 mg once a day. He remains in atrial fibrillation. He is slightly bradycardic earlier today and I made recommendations to hold off on Cardizem accordingly. He is on long-term anticoagulation with Eliquis. On today's evaluation of 11/24/2019 and seeing the patient for a follow-up. Thi s is a patient with advanced COPD with an FEV1 of 28% of predicted and the patient has a left lower lobe pneumonia/atelectasis. Furthermore the patient was confirmed to be a Covid 19 positive pneumonia. Note that the patient had improved somewhat in his oxygenation. I was able to cut down his PEEP down to 5 and off FiO2 down to 40% on yesterday's sounds. Overnight the patient became hypoxic. The PEEP had to be increased up to 10 and FiO2 was brought up to 70%. Earlier this morning, the patient self extubated. The patient had to be reintubated by [facility]. For now, the patient is back on a mechanical ventilator and the patient is currently sedated with propofol at the rate of 35 g per KG per minute. He remains in atrial fibrillation with a heart rate between 110 and 130. He is on assist control mode at the rate of 20 with a tidal volume of 450 and FiO2 of 75% with a PEEP of 10. Peak airway pressures around 31 with a setting of a pressure of 21. The patient is afebrile. The patient is hemodynamically stable. This is going to be a difficult wean. I suggested the possibility of doing a tracheostomy tube insertion and a PEG tube insertion. The patient has been confirmed to be a Covid 19 case back in 11/09/2019. This will be repeated today. Note that the test was repeated on 11/18/2019. If there is also negative, would say will be rather sensitive to proceed with a PEG and tracheostomy tube insertion. For that reason general surgical consultation was obtained. The patient's blood gases post intubation showed a pH of 7.43 with a pCO2 of 57 and pO2 of 69. Chest x-ray shows some volume loss and atelectasis in the left lung base. ET tube is in a good location for now. He is tolerating enteral feeding for enteral support. His digoxin level was within normal limits.he has completed his course of Plaquenil. He is still on zinc sulfate. He remains on IV Solu-Medrol 40 mg every 6 hours in addition to Symbicort and albuterol HFA 4 times a day [id number]. He was taken off Eliquis in preparation for possible PEG and trach. On 11/25/2019, the patient is being seen in follow-up today in the intensive care unit. Remains on mechanical ventilator. The patient is sedated. The patient remained on assist control mode of ventilator with an FiO2 of 75% and PEEP of 10 with a tidal volume of 450 and at 8 of 12. He had a chest x-ray this morning that showed still persistent volume loss and left lung base along with left lower lobe atelectasis. The blood gas showed a pH of 7.47 with a pCO2 of 52 and pO2 of 103. Based on this, I dropped the FiO2 down to 50%. He remains on a PEEP of 10. White cell count at 15.1. He is tolerating his tube feeds. Hemodynamically stable. He is afebrile. I had a lengthy discussion with the patient's on the phone. I was was going to talk about the possibility of undergoing a tracheostomy tube insertion and a PEG tube insertion on him as part of long-term meaning off the mechanical ventilator. Nevertheless, the did not consent to that. She told me that the patient would never have wanted to be intubated or placed on a mechanical ventilator for long period of time. She understands that his lung starting with have been quite severely impaired with an FEV1 of 28% of predicted consistent with severe COPD. As such, we are not going to proceed with the procedures as stated tomorrow. Based on my conversation with the , she wanted to give another trial of extubation if possible with the next 24-48 hours and consider comfort care measures and the patient failed extubation. I think this will be a reasonable approach for this patient. Otherwise, no other significant events overnight. The patient is producing adequate amount of urine output. Renal function stable. The patient remains on Symbicort 2 puffs twice a day in addition to Ventolin 2 puffs 4 times a day [id number], IV Solu Medrol, and he is on oral Cardizem 60 mg by mouth twice a day with adequate control of his underlying atrial fibrillation. He is on no anticoagulants for now. On 11/26/2019 and seeing the patient for a follow-up. The patient remains intubated on a mechanical ventilator. As mentioned earlier, no plans for a PEG or tracheostomy tube insertion upon the wishes of the . I had a lengthy discussion with her and our decision was to extubate this patient once ready to a nonrebreather facemask with the idea that the patient will not be reintubated if he decompensates. On today's evaluation he is an assist-control mode with a rate of 20 with a PEEP of 10 FiO2 of 50% and a tidal volume of 400. There is improved aeration of the left lung base and there is improvement in the volume status and the left upper lobe area. Distal some atelectasis in the left lung base. The patient is afebrile. The patient remains on IV Rocephin. He remains on plaque with treating Covid 19 infection and the patient remains on IV Solu Medrol 40 mg every 12 hours. No fever. No chills. Tolerating enteral feeding for nutritional support. No significant signs of any fluid overload. Based on all this, I discontinued the propofol and with checked the weaning parameters. The patient the rapid shallow breathing index of 80. I was considering a spontaneous breathing trial and possible extubation today. Nevertheless, I was told by the respiratory therapist and the nursing staff that the patient has significant amount of orotracheal secretions and he may not past the trial and extubation. We decided to postpone this for another 24 hours. Meanwhile, we'll continue the supportive care of this patient and the family informed on the exact timing of the extubation and this will be done with the next 24-48 hours. He is afebrile for now. Is producing adequate amount of urine output. No other significant events. Remains on Lovenox for DVT prophylaxis. The blood gases from this morning showed a pH of 7.48 with a pCO2 of 53 and pO2 of 81 and this was on FiO2 of 50%. Serum triglyceride level is at 99. On today's evaluation of 11/27/2019, the patient is being seen for a follow-up. The patient this morning is on an assist-control mode of ventilator with a rate of 20 with a tidal volume of 450 and FiO2 of 40% with a PEEP of 10. The chest x-ray from today showed persistent left lower lobe consolidation/effusion. For the most part the left lower lobe seems to be atelectatic. There is adequate aeration in the left upper lobe. The right lung is clear and there may be some small effusion the right lung base. The patient is afebrile. The patient is hemodynamically stable. The patient was in a 20 g of propofol this morning. I made recommendations to wean off the propofol and following that I check his weaning parameters it seems to be decent. At that point I decided to extubate this patient to a nonrebreather facemask and may also informed the of this extubation. At this point in time the patient is being monitored here in the ICU. No plans for the intubation should he develop any respiratory failure. For now occurring to continue this patient on a on the percent nonrebreather facemask. No nausea. No vomiting. No emesis. He does have some limited cough and his cough is weak postextubation. He is afebrile for now. Seems to be a bit anxious. He is following commands and answering questions appropriately. His last echo is a 15.4. Hemoglobin is at 15.9. Serum bicarbonate is at 37. He also has a pH of 7.49 with a pCO2 of 52 and pO2 of 75 and this was done on the mechanical ventilator on the above-mentioned ventilator setting. Scopolam ine patch will be added for orotracheal secretions. We'll continue the IV Solu Medrol. We'll give the patient dose of Lasix 40 mg IV push. On 11/28/2019 the patient is being seen for a follow-up. Events from yesterday were noted. The patient was extubated initially 200% on a beta facemask and s ubsequently was weaned down to 6 L about 2 by nasal cannula. He was quite agitated following the extubation currently is much more calm and comfortable. He was given Haldol on and off yesterday to control his assistance and agitation. Currently is resting comfortably in bed. No signs of any sign ificant respiratory distress. He was having some respiratory secretions for which scopolamine patch was added. He is still in atrial fibrillation. His rate is under better control. He is afebrile. His repeat Covid 19 analysis came back positive. He is on digoxin for rate control at a dose of 0.25 mg by mouth daily. He is unable to take his oral Lopressor as listed to IV Lopressor 5 mg every 6 hours. I will also contemplating of changing his anticoagulants to subcu Lovenox 1 mg per KG twice a day. He is nothing by mouth for now. He is arousable however is extremely weak. He cannot hold a conversation yet. He was able to open up his eyes and identified me as being his doctor. His white cell count of 19.4. Creatinine stable at 0.5. On 11/29/2019 the patient is being seen for a follow-up. Noted the patient was extubated yesterday and he survived extubation. Nevertheless, he continued to be restless, agitated, confused, short of breath, and he continued to have issues with atrial fibrillation and furthermore, last night, the patient developed worsening in oxygen desaturation and for that reason we decided we to proceed with comfort care measures. The patient was started on a morphine infusion which is currently running at 1 mg an hour. He is also receiving morphine 2 mg IV every 15 hours on an S3 basis for agitation addition to Dilaudid 1 mg every 4 hours when necessary he also has Haldol 1 mg every 8 hours when necessary. He is resting comfortably for now. He is on nasal cannula at 6 L of oxygen and the pulse ox is around 85-88%. His heart rate is fluctuating. It goes as low as 113 and as high as on the 46 and it remains in atrial fibrillation. He is showing no signs of agitation. He is unable to communicate at all today. His eyes are closed. He is comfortable and he doesn't seem to be struggling with his breathing. He is on a scopolamine patch for secretions. Objective - Vital Signs Vital signs: Vital Signs Temp 97.2 F L 11/29/19 08:00 Pulse 113 H 11/29/19 10:00 Resp 11 L 11/29/19 10:00 BP 163/88 11/28/19 23:00 Pulse Ox 65 L 11/29/19 10:00 Intake & Output 11/28/19 11/29/19 11/29/19 18:59 06:59 18:59 Intake Total 787.917 588 132.643 Output Total 1080 750 100 Balance -292.083 -162 32.643 Weight 112.5 kg Intake: IV 681 588 31 Anidulafungin 100 mg In 168 Sodium Chloride 0.9% 100 ml @ 84 mls/hr IVPB DAILY @2100 [facility] Rx#:[id number] Diltiazem 125 mg In 65 50 5 Sodium Chloride 0.9% 100 ml @ Per Protocol IV .Q0M [facility] Rx#:[id number] Lactated Ringers 1,000 ml 530 310 20 @ 50 mls/hr IV .Q20H [facility] Rx#:[id number] Normal Saline Pressure 86 60 6 Bag Intake, IV Titration 106.917 101.643 Amount Diltiazem 125 mg In 106.917 94.333 Sodium Chloride 0.9% 100 ml @ Per Protocol IV .Q0M [facility] Rx#:[id number] Morphine Sulfate (100 mg/ 7.310 2 ml) 100 mg In Sodium Chloride 0.9% 100 ml @ 1 MG/HR 1.02 mls/hr IV . Q24H [facility] Rx#:[id number] Output: Urine 1080 750 100 Other: Voiding Method Indwelling Catheter Indwelling Catheter Indwelling Catheter # Voids 6 ABP, PAP, CO, CI - Last Documented Arterial Blood Pressure 156/70 - Exam Gen. appearance, currently on 6 L of oxygen by nasal cannula. He is mouth breathing. He is currently on a morphine drip. He is comfortable and there is no visible episodes of breathing. He is breathing essentially shallow. No synovial orotracheal secretions for now. Occasional cough and. Head exam was generally normal. There was no scleral icterus or corneal arcus. Mucous membranes are essentially dry and the patient is mouth breathing for now. Neck was supple and without jugular venous distension, thyromegaly, or carotid bruits. Carotids were easily palpable bilaterally. There was no adenopathy. Lungs sounds are diminished bilaterally along with some scattered expiratory wheezes throughout the lung rasheed. Cardiac exam revealed the PMI to be normally situated and sized. The rhythm was irregular consistent with atrial fibrillation and no extrasystoles were noted during several minutes of auscultation. The first and second heart sounds were normal and physiologic splitting of the second heart sound was noted. There were no murmurs, rubs, clicks, or gallops Abdominal exam revealed normal bowel sounds. The abdomen was soft, non-tender, and without masses, organomegaly, or appreciable enlargement of the abdominal aorta. Examination of the extremities revealed easily palpable radial, femoral and pedal pulses. There was no cyanosis, clubbing or edema. There is trace edema lower extremities bilaterally. Examination of the skin revealed no evidence of significant rashes, suspicious appearing nevi or other concerning lesions. Neurologically the patient is unresponsive and the patient is currently morphine drip for comfort care measures. - Labs CBC & Chem 7: 11/28/19 04:25 11/28/19 04:25 Assessment and Plan Plan: 1 acute on chronic respiratory failure with left lower lobe pneumonia/ atelectasis/volume loss with a Covid 19 infection/pneumonia. The patient self extubated himself and failed. He had to be reintubated. The patient was originally diagnosed having Covid 19 on 11/09/2019. The patient was extubated on 11/27/2019 and is currently on 6 L of oxygen by his cannula. The patient continues to struggle and he did not recover successfully and he was found to be desaturating overnight and his breathing became more labored and for that reason we proceed with comfort care measures and currently the patient on morphine drip and addition to morphine pressure is on Haldol and scopolamine patch. 2 acute coronavirus COVID 19 infection, completed a course of Plaquenil and zinc sulfate and the repeat Covid analysis came back positive and this was done on 11/24/2019 3 acute hypoxic respiratory failure, secondary to above, currently on 6l by nasal cannula. 4 COPD, severe with an FEV1 of 28% of predicted 5 history of paroxysmal atrial fibrillation 6 positive fluid balance and increased edema lower extremities bilaterally, stable 7 coronary artery disease 8 obstructive sleep apnea. 9 diabetes mellitus 10 abdominal aortic aneurysm Plan Continue comfort care measures in the ICU Family was informed and the patient would likely pass within next 24 hours Keep scopolamine patch keep morphine drip comfort care measures are instituted embolism and the patient if needed.
[2019-11-29] MEDS ORDERED: ANIDULAFUNGIN 100 MG in SODIUM CHLORIDE 0.9% 100 ML IVPB SCH (21:00)
--- NOTE | 2019-11-30 08:19 | P.DS ---
Providers Date of admission: 11/10/19 00:13 Expected date of discharge: 11/29/19 Attending physician: Candy Lozada MD Consults: 11/09/19 23:28 Consult Physician Routine Consulting Provider: Nicolasa Berumen Consult Reason/Comments: sob Do you want consulting provider notified?: Yes Consult Physician Urgent Consulting Provider: Jlues Ordonez Consult Reason/Comments: roCOVID Do you want consulting provider notified?: Yes 11/10/19 09:44 Consult Physician Routine Consulting Provider: Darnell Rangel Consult Reason/Comments: afib rvr Do you want consulting provider notified?: Yes Primary care physician: [facility] Course: This is a 69-year-old male patient of Dr. Holland and Dr. Berumen with a previous medical history significant for paroxysmal atrial fibrillation, hypertension and hypertensive cardiovascular disease, hyperlipidemia, obesity with obstructive sleep apnea, CAD with ST elevation [place] post-PCI of the RCA back in August 2016, advanced COPD with FEV1 of 20% of predicted, chronic hypoxic respiratory failure, diabetes mellitus type 2, remote history of tobacco use. Patient has had previous admissions for acute COPD exacerbation as well as atrial flutter or atrial fibrillation with RVR. Patient most recently was hospitalized at [facility] at which time he was treated for atrial fibrillation with RVR, and pneumonia with lactic acidosis. Patient was treated with Rocephin and azithromycin. Patient was discharged home on -. Patient was instructed to hold eliquis as he was scheduled for heart catheterization on Saturday. 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 He then developed fever of 104 at home as well as shortness of breath and productive cough. Patient came into [facility] emergency center for evaluation. Temperature 102.3, heart rate 101 and jumped up to 177, blood pressure 125/70, pulse ox 99%.. He was found to be in A. fib with RVR, influenza and RSV negative. patient was tested for COVID19 which is pending. CBC, CMP unremarkable. Lactic acid 1.9, troponin 0.012, proBNP 1680. Chest x-ray reveals patchy atelectasis at the lung bases is new and increased compared to old exam. No heart failure seen. Repeat Chest x-ray reveals worsening left basilar airspace disease. Primary diagnostic consideration is for unifocal pneumonia. Patient has been admitted to the intensive care unit and consult in place with pulmonary medicine and cardiology consult will be added. equipment monitor phototypesetting is now A. 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 Cardizem drip will be discontinued and home oral medications resumed. 11/10: Patient is seen in the intensive care unit. He is in isolation for possible Covid 19 infection. Case was reviewed with the nurse outside the patient's room. No hands-on physical exam was performed. Patient is currently on O2 at 6 L nasal cannula with pulse ox of 95%, recommended that patient be weaned down on oxygen level. Temperature max today is 100.3. Heart rate in the 90s and low 100s. Blood pressure 119/76. Repeat blood work reveals a platelet count 108, WBC 7.1, hemoglobin 14.8. Sodium 132, potassium 4.6, chloride 102, CO2 24, BUN 10 and creatinine 0.57. Blood culture 2 no growth at 24 hours. COVID-19 testing remains pending. 11/11: Patient remains in the intensive care unit and has now been downgraded to [facility] with telemetry. Patient's less lethargic today. He is oriented 3. He received Lasix yesterday IV and diuresed well. He has had good urine output. CBC shows normal white count and hemoglobin, platelet count 139. Sodium 133, potassium 4.7, chloride 100, CO2 28, BUN 16 and creatinine 0.56. Pro-calcitonin 0.09. Blood culture no growth at 48 hours 2 specimens. Sputum culture is in progress. Repeat chest x-ray reveals small left pleural effusion and left basilar airspace disease as well as stable right infrahilar airspace disease and may represent atelectasis or developing pneumonia. Incentive spirometry and ABGs ordered. Solu-Medrol 60mg will be decreased to every 8 hours. 11/12: Patient is still having shortness of breath currently at 5 L nasal cannula. We will add Lasix 40 mg IV twice daily. Vancomycin can be discontinued at this point. COVID-19 remains pending. Patient remains in isolation. Patient has been afebrile, heart rate 90s, blood pressure 112/70, pulse ox 95% on 5 L nasal cannula. Repeat lab work reveals platelet count 135. Sodium 133, potassium 4.1, BUN 24 and creatinine 0.64. Blood sugars running in the 200s. Serum culture reveals normal fe. Blood culture no growth 2 specimens. 11/13: Patient is having less symptom with shortness of breath no chest pain at this point. Patient is responding well to current IV antibiotic with much lower temperature. Blood sugar was running high last night his Levemir was increased to 20 units twice a day and Humalog up to 5 units before meals meals plus sliding scale a. Patient COVID-19 remain pending at this point patient remain on isolation. Otherwise feeling well, still seen pulmonary with FEV1 of 20% only with a current hypoxia patient is doing much better with less oxygen concentration. Also patient original plan for elective heart catheter on Saturday with his pumper gauger apprentice [facility] is delay ~febrile illness and infection is completely clear probably will be rescheduled for at least 2-4 weeks from his discharge date. 11/14: Patient is doing well today continued to be more tired and fatigued his hypoxia has been much better his testing still negative for this point, his blood sugar still mildly elevated and titrate his insulin today to keep his random blood sugar below 150. Patient is not having any chest pain or shortness of breath is bilateral pneumonia as well treated and managed currently we'll continue to wean him down on oxygen continue diuretics and switch to oral patient expected discharge probably in 48 hours. 11/15: The patient remains in intensive care unit but is a MedSurg overflow. COVID-19 is positive. Solu-Medrol will be discontinued. Blood sugars have been quite high but expect this to improve now that he is off Solu-Medrol. Patient is currently on antibiotics in the form of cefepime and Levaquin. Ultrasound of the chest revealed minimal left-sided effusion. Patient has been afebrile, heart rate 72, blood pressure 126/72, pulse ox 90% on 5 L nasal cannula. 11/16: Patient remains in the intensive care unit but is MedSurg overflow, Covid 19 positive. Patient has been started on a Zithromax then and Plaquenil by Dr. Ordonez. Patient has been hemodynamically stable with blood pressure 131/76, heart rate 72, afebrile. Pulse ox is running 90 on 5 L nasal cannula. Repeat blood work reveals white count of 11.7, CO2 38, BUN 28 creatinine 0.66. Blood sugars are running between 189 and 209. Blood sugars are improved after IV steroids discontinued. Repeat chest x-ray shows persistent left mid to lower lung edema and/or infiltrate silhouetting left heart border and hemidiaphragm. Worsening left upper lung interstitial edema and/or infiltrates noted. Stable left-sided volume loss. Patient denies having any cough at this time, no sputum production. Patient denies having chest pain. Discharge planning is in progress. Patient at this time is unable to go to subacute rehab due to restrictions regarding Covid testing. instructional manager has been in contact with family members and home care including PT have been arranged. Wheelchair will be ordered and arranged by residential case manager. Patient may also benefit from walker which family will obtain. We are anticipating discharge in 24-48 hours. Patient has had good urine output and Mont[place]or catheter will be removed later. 11/17: Patient developed increasing shortness of breath during the evening and oxygen was increased to 15 L high flow nasal cannula. Patient was given a dose of Lasix 40 mg IV push and was weaned down to 8 L nasal cannula. Pulse ox then was running 85% and he is currently up to 10 L nasal cannula. Patient is found sitting up in a chair and appears to be in no acute respiratory distress. Patient has been very reluctant to move. Patient has incentive spirometry and is only reaching 75 ML's. WBC 12.2. Sodium 135, potassium 5.5, chloride 91, CO2 38, P1 20 and creatinine 0.57. Blood sugars run between 106 and 133. Troponin from last night was negative, proBNP 1150. Repeat potassium 3.6. equipment monitor phototypesetting is A. fib controlled rate. Patient is afebrile, heart rate 92, blood pressure 101/70. Patient's has been updated via the phone by Dr. Wayne. Patient is extremely weak and we will repeat Covid 19 testing in anticipation of need for subacute rehab. Patient's states that she is unable to manage him at home. 11/18: Patient have further decline this morning of his respiratory status with increasing fatigue and is being intubated by Dr. Barry this morning. Chest x- ray reveals worsening opacities occasional left lower lobe and lingula. Worsening infiltrate in the left upper lobe was present. There may be some shift of the mediastinum towards the left. Correlate for atelectasis. Moderate pleural effusion appears stable. Repeat blood work reveals WBC 16.5, sodium 136, potassium 3.6, chloride 90, CO2 40, BUN 13 creatinine 0.72. Repeat tropo denise negative. ProBNP 732. Patient had a low blood sugar which required treatment this morning of 57. Scheduled Levemir and NovoLog will be discontinued. equipment monitor phototypesetting is atrial fibrillation with controlled rate. Patient's was contacted via phone and updated regarding patient's current condition, need for intubation and guarded prognosis. 11/19: Patient remains in the intensive care unit intubated and on mechanical ventilation. Patient has been afebrile, heart rate 85, blood pressure 129/59. Patient has not required vasopressor support. WBC 9.5, hemoglobin 11.1, platelet count 137. Sodium 135, potassium 4.4, chloride 94, BUN 39 creatinine 0.75. Blood sugars are running in the 200s. All scheduled insulin was discontinued due to hypoglycemia yesterday. Patient is now on LR and Solu- Medrol, Levemir 10 units added back in. Patient is also on insulin scale. Yesterday, besides being intubated, patient underwent bronchoscopy with airway examination, therapeutic lavage, BAL of the left lung. There was noted mild bronchitis and on the left side a huge mucous plug completely obstructing the proximal left main stem was removed. Repeat chest x-ray this morning reveals endotracheal tube slightly high riding could be advanced. Slightly improved small left pleural effusion and left basilar airspace disease. Pneumonia versus atelectasis. Patient remains on azithromycin, Plaquenil and a zinc. Patient is also followed by infectious disease. Cardiology has signed off. Patient's case was discussed with his nurse. No physical exam done in order to limit exposure to COVID-19 patient while intubated. 11/20: Patient remains in intensive care unit currently intubated on mechanical ventilation he was seen earlier by pulmonary medicine and he was dropped down to 50% and FiO2 he is trying to follow commands by weaning down the sedation however he continues to have significant distress he is in droplet precaution due to COVID-19 status, discussed his plan of care with the nursing staff his blood glucose levels were elevated and he was started on Levemir earlier that was increased to 15 units twice a day along with the Humalog plus sliding scale. 11/21: Patient remains in intensive care unit currently intubated on mechanical ventilation he continues to be followed by pulmonary medicine, trying to wean the sedation off, continues to be in significant distress with droplet precautions due to his Covid 19 status, we will continue to monitor the follow the patient peripherally. 11/22: Patient remains in intensive care unit intubated and on mechanical ventilation. On settings are currently following him 450, FiO2 40, PEEP of 5 which is improved from earlier this morning. A weaning attempt was tried yesterday which failed and also again today which failed. He remains in droplet precautions secondary to COVID-19. Due to this, patient will be monitored peripherally only. Blood sugars have remained high and we will increase Levemir to 20 units twice daily, increase NovoLog to 12 units every 6 hours and continue NovoLog scale. 11/23: Patient remains in intensive care unit, intubated and on mechanical ventilation. Patient self extubated and required reintubation today. Patient is on sedation as able to respond to the nurse. Blood sugars are slowly improving. We'll make no changes to his insulins today. He is having good urine output. General surgery has been consulted for possible PEG tube and trach insertion. Patient will be retested for Covid 19 and remains and droplet precautions. 11/24: The patient remains intubated and on mechanical ventilation management by Dr. Berumen. Patient is in droplet isolation for Covid 19. Social work will be contacting family regarding possible transfer to. Debate is in place for regarding whether patient should have PEG tube and trach done prior to transfer. Patient is afebrile, heart rate 75, blood pressure 143/73. WBC 15.1, BUN 30 and creatinine 0.57. CO2 is 38. Blood sugars are improved running between 150 and 190. 11/29: On November 26, patient was extubated and placed on nonrebreather and plan was the patient would not be reintubated if necessary. Following extubation, patient had issues with agitation, restlessness and confusion as well as atrial fibrillation. Patient did have desaturation and it was decided on November 28 the patient would be made comfort care only. [facility] was involved but did not want to meet with hospice to sign consents and initiate hospice services. Patient on the late evening of November 28. Discharge diagnoses: 1. Acute febrile illness most likely secondary to bibasilar pneumonia, gram- negative pneumonia, COPD exacerbation and COVID-19.Preliminary cause of 2. Acute on chronic hypoxic respiratory failure secondary to Covid 19 and pneumonia. 3. Acute Covid 19 infection. 4. A. fib with RVR, paroxysmal atrial fibrillation. 5. Severe COPD with FEV1 of 28% of predicted with acute exacerbation. 6. Obstructive sleep apnea. 7. Known coronary artery disease post angioplasty and stent placement. 8. Hypertension hypertensive cardiovascular disease. 9. Abdominal aortic aneurysm monitored by vascular surgery. 10. Hyperglycemia secondary to steroids. 11. Severe protein calorie malnutrition secondary to intubation. Impression and plan of care have been directed as dictated by the signing physician. Joy Baxter nurse practitioner acting as scribe for signing physician. Patient Condition at Discharge: Undetermined Plan - Discharge Summary New Discharge Prescriptions: No Action Atorvastatin [Lipitor] 80 mg PO HS #30 tab Albuterol Sulfate [Proair Hfa] 2 puff INHALATION RT-Q6H PRN PRN Reason: Shortness Of Breath Aspirin 81 mg PO DAILY chew Apixaban [Eliquis] 5 mg PO BID #60 tab Diltiazem HCl [Cardizem] 90 mg PO TID #90 tablet Budesonide [Pulmicort] 0.5 mg INHALATION RT-BID Digoxin [Lanoxin] 250 mcg PO DAILY #30 tab Metoprolol Tartrate [Lopressor] 25 mg PO BID #60 tab Albuterol Nebulized [Ventolin Nebulized] 2.5 mg INHALATION RT-QID Ipratropium Nebulized [Atrovent Nebulized 0.2 MG/ML] 0.5 mg INHALATION RT-Q6H PRN PRN Reason: Shortness Of Breath Breathe Sinus And Lungs Health 1 cap PO DAILY Discharge Medication List Atorvastatin [Lipitor] 80 mg PO HS #30 tab 08/18/16 [Rx] Albuterol Sulfate [Proair Hfa] 2 puff INHALATION RT-Q6H PRN 11/07/17 [History] Aspirin 81 mg PO DAILY chew 12/11/17 [Rx] Apixaban [Eliquis] 5 mg PO BID #60 tab 10/28/18 [Rx] Diltiazem HCl [Cardizem] 90 mg PO TID #90 tablet 10/28/18 [Rx] Budesonide [Pulmicort] 0.5 mg INHALATION RT-BID 06/29/19 [History] Digoxin [Lanoxin] 250 mcg PO DAILY #30 tab 07/07/19 [Rx] Metoprolol Tartrate [Lopressor] 25 mg PO BID #60 tab 07/07/19 [Rx] Albuterol Nebulized [Ventolin Nebulized] 2.5 mg INHALATION RT-QID 11/09/19 [History] Breathe Sinus And Lungs Health 1 cap PO DAILY 11/09/19 [History] Ipratropium Nebulized [Atrovent Nebulized 0.2 MG/ML] 0.5 mg INHALATION RT-Q6H PRN 11/09/19 [History] Follow up Appointment(s)/Referral(s): [facility] [NON-STAFF] - Laron Holland DO [Primary Care Provider] - 1-2 days [facility] Visiting Nurse, [NON-STAFF] - 1-2 Days Discharge Disposition: - Preliminary Cause of Preliminary Cause of : gram-negative pneumonia, COPD exacerbation and COVID-19
== END 2019-11-29 22:20 | disposition expired | DRG 870 ==
LOC: EC 21:28 → 2SICU 11-10 00:13
PROVIDERS: ADMIT Internal Medicine; ATTEND Internal Medicine
PROC: 05HD33Z Insertion of Infusion Device into Right Cephalic Vein, Percutaneous Approach (ICD-10-PCS; 2019-11-10)
PROC: 03HY32Z Insertion of Monitoring Device into Upper Artery, Percutaneous Approach (ICD-10-PCS; 2019-11-19)
PROC: 4A133B1 Monitoring of Arterial Pressure, Peripheral, Percutaneous Approach (ICD-10-PCS; 2019-11-19)
PROC: 4A133J1 Monitoring of Arterial Pulse, Peripheral, Percutaneous Approach (ICD-10-PCS; 2019-11-19)
PROC: 0B9L8ZX Drainage of Left Lung, Via Natural or Artificial Opening Endoscopic, Diagnostic (ICD-10-PCS; 2019-11-19)
PROC: 0BC78ZZ Extirpation of Matter from Left Main Bronchus, Via Natural or Artificial Opening Endoscopic (ICD-10-PCS; 2019-11-19)
PROC: 5A09357 Assistance with Respiratory Ventilation, Less than 24 Consecutive Hours, Continuous Positive Airway Pressure (ICD-10-PCS; 2019-11-19)
PROC: 0DH67UZ Insertion of Feeding Device into Stomach, Via Natural or Artificial Opening (ICD-10-PCS; 2019-11-19)
PROC: 3E0G76Z Introduction of Nutritional Substance into Upper GI, Via Natural or Artificial Opening (ICD-10-PCS; 2019-11-19)
PROC: 0BH17EZ Insertion of Endotracheal Airway into Trachea, Via Natural or Artificial Opening (ICD-10-PCS; 2019-11-19)
PROC: 5A1955Z Respiratory Ventilation, Greater than 96 Consecutive Hours (ICD-10-PCS; principal; 2019-11-19 07:30)
PROC: 02HV33Z Insertion of Infusion Device into Superior Vena Cava, Percutaneous Approach (ICD-10-PCS; 2019-11-19 07:30)
DX: A41.89 Other specified sepsis (principal); U07.1 COVID-19; J96.21 Acute and chronic respiratory failure with hypoxia; J12.89 Other viral pneumonia; E43 Unspecified severe protein-calorie malnutrition; J15.6 Pneumonia due to other Gram-negative bacteria; J90 Pleural effusion, not elsewhere classified; J44.1 Chronic obstructive pulmonary disease with (acute) exacerbation; J44.0 Chronic obstructive pulmonary disease with (acute) lower respiratory infection; T17.890A Other foreign object in other parts of respiratory tract causing asphyxiation, initial encounter; I48.92 Unspecified atrial flutter; Z99.11 Dependence on respirator [ventilator] status; B37.0 Candidal stomatitis; A41.50 Gram-negative sepsis, unspecified; J98.11 Atelectasis; Z66 Do not resuscitate; Z51.5 Encounter for palliative care; E11.649 Type 2 diabetes mellitus with hypoglycemia without coma; I48.0 Paroxysmal atrial fibrillation; E11.65 Type 2 diabetes mellitus with hyperglycemia; I11.9 Hypertensive heart disease without heart failure; I71.4 Abdominal aortic aneurysm, without rupture; M19.90 Unspecified osteoarthritis, unspecified site; I25.10 Atherosclerotic heart disease of native coronary artery without angina pectoris; G47.33 Obstructive sleep apnea (adult) (pediatric); E78.5 Hyperlipidemia, unspecified; K21.9 Gastro-esophageal reflux disease without esophagitis; E66.9 Obesity, unspecified; R32 Unspecified urinary incontinence; D72.810 Lymphocytopenia; R45.1 Restlessness and agitation; T38.0X5A Adverse effect of glucocorticoids and synthetic analogues, initial encounter; Z68.34 Body mass index [BMI] 34.0-34.9, adult; I25.2 Old myocardial infarction; Z79.01 Long term (current) use of anticoagulants; Z79.82 Long term (current) use of aspirin; Z79.51 Long term (current) use of inhaled steroids; Z79.899 Other long term (current) drug therapy; Z87.01 Personal history of pneumonia (recurrent); Z86.72 Personal history of thrombophlebitis; Z87.81 Personal history of (healed) traumatic fracture; Z86.14 Personal history of Methicillin resistant Staphylococcus aureus infection; Z90.49 Acquired absence of other specified parts of digestive tract; Z95.5 Presence of coronary angioplasty implant and graft; Z98.890 Other specified postprocedural states; Z99.81 Dependence on supplemental oxygen; Z87.891 Personal history of nicotine dependence; Z88.0 Allergy status to penicillin; Z88.2 Allergy status to sulfonamides; Z82.49 Family history of ischemic heart disease and other diseases of the circulatory system; Z82.3 Family history of stroke
CPT/HCPCS: 31624; 31645; 36410; 36415; 36600; 71045; 76604; 76937; 80048; 80053; 80061; 80162; 80202; 82553; 82565; 82805; 83036; 83605; 83615; 83735; 83880; 84132; 84145; 84478; 84484; 85025; 85027; 85610; 85730; 87040; 87070; 87102; 87116; 87205; 87206; 87252; 87496; 87498; 87502; 87529; 87634; 87798; 88108; 88305; 89050; 93005; 93306; 94002; 94003; 94640; 94660; 94667; 96365; 96366; 96372; 96376; 99285